=== PATIENT | male | born 1945 | race Caucasian/White ===

== ENCOUNTER → 2018-01-26 10:15 | Outpatient (CLI) | payer MEDICARE, BC, SELFPAY ==
--- NOTE | 2018-01-26 10:26 | RAD_ITS ---
STUDY: X-RAY CHEST REASON FOR EXAM: Male, 72 years old. Shortness of breath with cough and dyspnea. TECHNIQUE: Frontal and lateral views of the chest. COMPARISON: May 17, 2017 FINDINGS: There is low volume inspiration with bibasilar atelectasis. There are no focal consolidations. There is no demonstrated pleural abnormality. There is cardiomegaly unchanged. Normal mediastinum and dayan. Normal visualized pulmonary arteries. There is stable atherosclerotic calcification of the aortic arch with tortuosity. Normal visualized thoracic spine. Normal visualized ribs, clavicles, and shoulders. There is no demonstrated abnormality of the visualized soft tissue structures of the upper abdomen. RAD/Chest PA and Lateral IMPRESSION: Cardiomegaly with low volume inspiration and bibasilar atelectasis. No acute or active cardiopulmonary disease. Electronically Signed: Dylan Cotto MD at 17:50 EDT , Service support ,
== END ==
PROVIDERS: Family Provider Family Medicine Geriatric Medicine; PCP Family Medicine Geriatric Medicine; Visit Provider Family Medicine Geriatric Medicine
DX: R05 Cough (principal)
CPT/HCPCS: 71046

== ENCOUNTER → 2018-04-02 13:36 | Outpatient (CLI) | payer MEDICARE, BC, SELFPAY | PROVIDERS: Family Provider Family Medicine Geriatric Medicine; PCP Family Medicine Geriatric Medicine; Visit Provider Family Medicine Geriatric Medicine | DX: R69 Illness, unspecified (principal) | CPT/HCPCS: 87633 ==

== ENCOUNTER → 2018-04-30 09:21 | Outpatient (CLI) | payer MEDICARE, BC, SELFPAY ==
[2018-04-30 13:05] LABS: Absolute Lymphocyte Count 1.32 X10^3/ul (0.83-4.51); Absolute Neutrophil Count 2.3 X10^3/uL (2.0-7.7); Basophil# 0.03 X10^3/uL; Basophil% 0.7 % (0-1); Eosinophil# 0.57 X10^3/uL; Eosinophils% 12.4 % (0-5); Hematocrit 43.2 % (40-54); Lymphocyte # 1.32 X10^3/ul (4.0); Lymphocyte % 28.8 % (19-41); Mean Corp Hgb Conc 32.4 g/gl (32-36); Mean Corpuscular Hgb 31.5 pg (27.0-32.0); Mean Corpuscular Volume 97.1 fL (80-94); Monocyte# 0.36 X10^3/uL; Monocyte% 7.9 % (0-10); Neutrophil # 2.29 X10^3/uL (2.7-7.7); Platelet Count 221 K/mm3 (150-450); RBC Distribution Width CV 13.7 % (11.6-14.6); RBC Distribution Width SD 48.1 fl (35.1-43.9); Red Blood Count 4.45 M/mm3 (4.6-6.2); White Blood Count 4.6 K/mm3 (4.4-11.0)
[2018-04-30 13:06] LABS: POSITIVE COUNT NO; POSITIVE DIFFERENTIAL NO; POSITIVE MORPHOLOGY NO
[2018-04-30 13:20] LABS: AST(SGOT) 23 U/L (15-37); Alanine Aminotransfer ALT/SGPT 33 U/L (16-61); Albumin, Serum 3.6 g/dL (3.2-5.0); Alkaline Phosphatase 87 U/L (45-117); Anion Gap 4 (5-15); BUN 13 mg/dL (7-18); BUN/Creat Ratio 13.3 RATIO (10-20); Calcium,Total 8.8 mg/dL (8.5-10.1); Chloride 103 mmol/L (98-107); Creatinine, Serum 0.98 mg/dL (0.70-1.30); EST Glomerular Filtration Rate 80 mL/min (>60); Est Glom Filt Rate - Afr Amer 97 mL/min (>60); Globulin 3.6 g/dL (2.2-4.2); Glucose 92 mg/dL (74-106); Potassium 4.4 mmol/L (3.5-5.1); Protein, Total 7.2 g/dL (6.4-8.2); Sodium Level 137 mmol/L (136-145); Thyroid Stim Hormone (TSH) 1.22 uIU/mL (0.358-3.74)
[2018-04-30 13:27] LABS: Vitamin D,25 Hydroxy 22.9 ng/mL (29.95-100.01)
== END ==
PROVIDERS: Family Provider Family Medicine Geriatric Medicine; PCP Family Medicine Geriatric Medicine; Visit Provider Family Medicine Geriatric Medicine
DX: I10 Essential (primary) hypertension (principal); E55.9 Vitamin D deficiency, unspecified
CPT/HCPCS: 36415; 80053; 82306; 84443; 85025

== ENCOUNTER 2019-01-07 12:57 | Emergency (ER) | payer MEDICARE, BC, SELFPAY ==
[2018-08-27 10:13] VITALS: BMI 40.0
[2019-01-07 12:59] VITALS: BP 108/61; PULSE 89; RESP 18; TEMP 36.5; O2SAT 96; BMI 38.7
--- NOTE | 2019-01-07 13:30 | ED.VISSUMM ---
- ER Visit Summary Date of Service: 01/07/19 Chief Complaint: Shingles History of Present Illness: The patient is a 73 M who states that 2 weeks ago he developed shingles on the right side of his abdomen. At that time he was in [place] where he donnelly. He was seen a couple times there was started on prednisone and acyclovir. He also was taking tramadol as well as Tylenol with codeine to help with the pain but is still painful. He returned to [facility] on Monday and called his doctor's office today but they are out until the end of the week. His states that he has been putting various creams on it. Physical Examination: Afebrile vital signs are stable Gen: Well-nourished well-developed obesity Head: Normocephalic atraumatic Eyes: Perrl EOMI ENT: TMs clear no rhinorrhea moist mucous membranes Neck: Supple no lymphadenopathy no JVD nontender CVS: Regular rate rhythm no murmurs normal S1-S2 Respiratory: No distress clear to auscultation bilaterally chest nontender Abdomen: Soft nontender nondistended normal bowel sounds no masses Back: Nontender Extremity: Nontender no edema Skin: Right side of the abdomen demonstrates healing shingles. Most of them are scabbed over with a few vesicular lesions still present. There is however a large amount of erythema concerning for cellulitis. There are several areas where the skin has opened up and is draining a purulent-like material. Neuro: alert orientated ?3 CN II-XII intact normal strength sensation reflexes gait cerebellar Psych: Normal affect normal mood Emergency Department Course and Treatment: I am going to write the patient some Percocet for pain. I also wrote him Colace advised him to drink some apple juice to help prevent constipation. I am concerned about the areas of erythema I believe is cellulitis. I am going to write for Bactrim. I have asked that follow-up with his doctor. Impression: 1. Shingles 2. Cellulitis This note was generated with [employer]elli[employer] dictation software. It may contain incorrect words, spelling, and punctuation that were not noted in review of the chart prior to signing ED Disposition - Plan for ED Patient: Disposition: Home or Assisted Living Instructions: ED Cellulitis Facial, ED Shingles Prescriptions: Oxycodone HCl/Acetaminophen [Percocet 5/325] 1 tab PO Q6H PRN PRN 5 Days #20 tab PRN Reason: Pain Docusate Sodium [Colace] 100 mg PO DAILY #20 cap Smz/Tmp Ds [Bactrim Ds] 1 tab PO BID #14 tab Referrals: Price Herndon Chi, MD [Primary Care Provider] - As soon as possible
== END 2019-01-07 13:45 | disposition home or self-care (01) ==
PROVIDERS: Emergency Provider Emergency Medicine; Family Provider Family Medicine Geriatric Medicine; PCP Family Medicine Geriatric Medicine
DX: B02.9 Zoster without complications (principal); L03.311 Cellulitis of abdominal wall; E66.9 Obesity, unspecified
CPT/HCPCS: 99282

== ENCOUNTER → 2019-01-14 15:45 | Outpatient (CLI) | payer MEDICARE, BC, SELFPAY ==
[2019-01-07 12:59] VITALS: BMI 38.7
[2019-01-14 19:15] LABS: M R Staph aureus DNA By PCR Negative (Negative); Probe Check PASS; Staph aureus DNA By PCR NEGATIVE (Negative)
== END ==
PROVIDERS: Family Provider Family Medicine Geriatric Medicine; PCP Family Medicine Geriatric Medicine; Visit Provider Family Medicine Geriatric Medicine
DX: B02.9 Zoster without complications (principal)
CPT/HCPCS: 87070; 87077; 87186; 87205; 87640

== ENCOUNTER → 2019-01-21 15:10 | Outpatient (CLI) | payer MEDICARE, BC, SELFPAY ==
[2019-01-07 12:59] VITALS: BMI 38.7
[2019-01-21 16:07] LABS: Absolute Lymphocyte Count 0.95 X10^3/ul (0.83-4.51); Absolute Neutrophil Count 4.1 X10^3/uL (2.0-7.7); Eosinophil# 0.05 X10^3/uL; Eosinophils% 0.8 % (0-5); Hematocrit 40.4 % (40-54); Hemoglobin 12.9 g/dl (13.0-16.5); Lymphocyte # 0.95 X10^3/ul (4.0); Lymphocyte % 16.1 % (19-41); Mean Corp Hgb Conc 31.9 g/gl (32-36); Mean Corpuscular Hgb 31.4 pg (27.0-32.0); Mean Corpuscular Volume 98.3 fL (80-94); Mean Platelet Vol. 9.1 fl (6.2-12.0); Monocyte# 0.74 X10^3/uL; Monocyte% 12.6 % (0-10); Neutrophil # 4.14 X10^3/uL (2.7-7.7); Neutrophil % 70.3 % (47-70); Platelet Count 293 K/mm3 (150-450); RBC Distribution Width CV 14.8 % (11.6-14.6); RBC Distribution Width SD 53.3 fl (35.1-43.9); Red Blood Count 4.11 M/mm3 (4.6-6.2); White Blood Count 5.9 K/mm3 (4.4-11.0)
[2019-01-21 16:28] LABS: Vitamin D,25 Hydroxy 18.5 ng/mL (29.95-100.01)
[2019-01-21 16:34] LABS: POSITIVE COUNT NO; POSITIVE DIFFERENTIAL NO; POSITIVE MORPHOLOGY NO
[2019-01-21 16:38] LABS: AST(SGOT) 34 U/L (15-37); Alanine Aminotransfer ALT/SGPT 85 U/L (16-61); Albumin, Serum 3.6 g/dL (3.2-5.0); Alkaline Phosphatase 99 U/L (45-117); Anion Gap 5 (5-15); BUN 17 mg/dL (7-18); BUN/Creat Ratio 17.1 RATIO (10-20); Chloride 97 mmol/L (98-107); Creatinine, Serum 0.99 mg/dL (0.70-1.30); EST Glomerular Filtration Rate 78 mL/min (>60); Est Glom Filt Rate - Afr Amer 95 mL/min (>60); Globulin 3.5 g/dL (2.2-4.2); Glucose 72 mg/dL (74-106); Potassium 4.5 mmol/L (3.5-5.1); Protein, Total 7.1 g/dL (6.4-8.2); Sodium Level 135 mmol/L (136-145); Thyroid Stim Hormone (TSH) 1.05 uIU/mL (0.358-3.74)
== END ==
PROVIDERS: Family Provider Family Medicine Geriatric Medicine; PCP Family Medicine Geriatric Medicine; Visit Provider Family Medicine Geriatric Medicine
DX: E55.9 Vitamin D deficiency, unspecified (principal); I10 Essential (primary) hypertension
CPT/HCPCS: 36415; 80053; 82306; 84443; 85025

== ENCOUNTER → 2019-04-11 16:17 | Outpatient (CLI) | payer MEDICARE, BC, SELFPAY ==
[2019-03-19 07:37] VITALS: BMI 37.3
[2019-04-11 17:17] LABS: Absolute Neutrophil Count 3.4 X10^3/uL (2.0-7.7); Basophil# 0.02 X10^3/uL; Basophil% 0.4 % (0-1); Eosinophil# 0.14 X10^3/uL; Eosinophils% 2.6 % (0-5); Hematocrit 40.7 % (40-54); Hemoglobin 13.6 g/dL (13.0-16.5); Lymphocyte % 24.3 % (19-41); Mean Corp Hgb Conc 33.4 g/dL (32-36); Mean Corpuscular Hgb 33.5 pg (27.0-32.0); Mean Corpuscular Volume 100.2 fL (80-94); Mean Platelet Vol. 9.3 fl (6.2-12.0); Monocyte# 0.46 X10^3/uL; Monocyte% 8.6 % (0-10); NRBC Flagged by Analyzer 0 % (0-5); Neutrophil # 3.44 X10^3/uL (2.7-7.7); Neutrophil % 64.1 % (47-70); Platelet Count 224 K/mm3 (150-450); RBC Distribution Width CV 13.4 % (11.6-14.6); RBC Distribution Width SD 49.9 fl (35.1-43.9); Red Blood Count 4.06 M/mm3 (4.6-6.2); White Blood Count 5.4 K/mm3 (4.4-11.0)
[2019-04-11 17:31] LABS: ALB/GLOB Ratio 1.1 RATIO (0.9-2.4); AST(SGOT) 17 U/L (15-37); Alanine Aminotransfer ALT/SGPT 34 U/L (16-61); Albumin, Serum 3.6 g/dL (3.2-5.0); Alkaline Phosphatase 74 U/L (45-117); Amylase 33 U/L (25-115); Anion Gap 2 (5-15); BUN 13 mg/dL (7-18); BUN/Creat Ratio 13.7 RATIO (10-20); Calcium,Total 9.1 mg/dL (8.5-10.1); Chloride 105 mmol/L (98-107); Creatinine, Serum 0.95 mg/dL (0.70-1.30); EST Glomerular Filtration Rate 82 mL/min (>60); Est Glom Filt Rate - Afr Amer 99 mL/min (>60); Globulin 3.3 g/dL (2.2-4.2); Glucose 104 mg/dL (74-106); Lipase 62 U/L (73-393); Potassium 3.9 mmol/L (3.5-5.1); Protein, Total 6.9 g/dL (6.4-8.2); Sodium Level 135 mmol/L (136-145)
== END ==
PROVIDERS: Family Provider Family Medicine Geriatric Medicine; PCP Family Medicine Geriatric Medicine; Visit Provider Family Medicine Geriatric Medicine
DX: K86.81 Exocrine pancreatic insufficiency (principal)
CPT/HCPCS: 36415; 80053; 82150; 83690; 85025

== ENCOUNTER → 2019-04-12 10:33 | Outpatient (CLI) | payer MEDICARE, BC, SELFPAY ==
[2019-03-19 07:37] VITALS: BMI 37.3
--- NOTE | 2019-04-12 10:38 | CT_ITS ---
STUDY: CT ABDOMEN AND PELVIS WITHOUT CONTRAST REASON FOR EXAM: Male, 73 years old. Right lower quadrant pain. Hypertension. RADIATION DOSAGE (If Supplied By Facility): CTDIvol = ( 20.03 ) mGy, DLP = ( 1139.10 ) mGycm TECHNIQUE: Transaxial images were obtained from the dome of the diaphragm to the symphysis pubis without oral contrast, and without intravenous contrast. Sagittal and coronal images were reconstructed. Individualized dose optimization techniques were used for this CT. COMPARISON: None. FINDINGS: There is thickening of the right major fissure as well as the left major fissure. Findings suggestive of linear scarring in the lingular segment of the left upper lobe. Coronary artery calcification. Normal liver. The patient is status post cholecystectomy. There is a benign calcified granuloma of the spleen. Normal pancreas. Normal bilateral adrenal glands. Normal right kidney. Normal left kidney. Normal visualized stomach. Normal small intestine. There are multiple colonic diverticula consistent with diverticulosis. The appendix is visualized and appears normal. There is diffuse atherosclerotic calcification of the abdominal aorta, without a demonstrated aneurysm. Normal inferior vena cava. Normal retroperitoneum. Normal urinary bladder. Small bilateral inguinal hernias containing fat. There are degenerative changes of the visualized lumbar spine. CT/Abdomen/Pelvis without Cont IMPRESSION: No acute abnormality is seen. Electronically Signed: Bhupinder Hughes, at 13:08 EDT , Service support ,
== END ==
PROVIDERS: Family Provider Family Medicine Geriatric Medicine; PCP Family Medicine Geriatric Medicine; Referring Provider Family Medicine Geriatric Medicine; Visit Provider Family Medicine Geriatric Medicine
DX: R10.9 Unspecified abdominal pain (principal)
CPT/HCPCS: 74176

== ENCOUNTER → 2019-04-15 10:07 | Outpatient (CLI) | payer MEDICARE, BC, SELFPAY ==
[2019-03-19 07:37] VITALS: BMI 37.3
[2019-04-19 11:20] LABS: Fats, Neutral Normal (.); Fats, Total Increased (.)
== END ==
PROVIDERS: Family Provider Family Medicine Geriatric Medicine; PCP Family Medicine Geriatric Medicine; Referring Provider Family Medicine Geriatric Medicine; Visit Provider Family Medicine Geriatric Medicine
DX: K86.81 Exocrine pancreatic insufficiency (principal)
CPT/HCPCS: 82705

== ENCOUNTER → 2019-05-01 09:33 | Outpatient (CLI) | payer MEDICARE, BC, SELFPAY ==
[2019-03-19 07:37] VITALS: BMI 37.3
[2019-05-01 10:38] LABS: Absolute Neutrophil Count 3.2 X10^3/uL (2.0-7.7); Basophil# 0.04 X10^3/uL; Basophil% 0.7 % (0-1); Eosinophil# 0.22 X10^3/uL; Hematocrit 44.4 % (40-54); Hemoglobin 14.5 g/dL (13.0-16.5); Lymphocyte % 27.3 % (19-41); Mean Corp Hgb Conc 32.7 g/dL (32-36); Mean Corpuscular Hgb 32.9 pg (27.0-32.0); Mean Corpuscular Volume 100.7 fL (80-94); Mean Platelet Vol. 9.3 fl (6.2-12.0); Monocyte# 0.49 X10^3/uL; Monocyte% 8.9 % (0-10); NRBC Flagged by Analyzer 0 % (0-5); Neutrophil # 3.23 X10^3/uL (2.7-7.7); Neutrophil % 58.9 % (47-70); Platelet Count 227 K/mm3 (150-450); RBC Distribution Width CV 12.8 % (11.6-14.6); RBC Distribution Width SD 48.2 fl (35.1-43.9); Red Blood Count 4.41 M/mm3 (4.6-6.2); White Blood Count 5.5 K/mm3 (4.4-11.0)
[2019-05-01 11:21] LABS: Vitamin D,25 Hydroxy 24.1 ng/mL (29.95-100.01)
[2019-05-01 11:23] LABS: ALB/GLOB Ratio 1.1 RATIO (0.9-2.4); AST(SGOT) 18 U/L (15-37); Alanine Aminotransfer ALT/SGPT 36 U/L (16-61); Albumin, Serum 3.8 g/dL (3.2-5.0); Alkaline Phosphatase 77 U/L (45-117); Anion Gap 3 (5-15); BUN 12 mg/dL (7-18); BUN/Creat Ratio 10.7 RATIO (10-20); Calcium,Total 9.2 mg/dL (8.5-10.1); Chloride 104 mmol/L (98-107); Creatinine, Serum 1.12 mg/dL (0.70-1.30); EST Glomerular Filtration Rate 68 mL/min (>60); Est Glom Filt Rate - Afr Amer 82 mL/min (>60); Globulin 3.4 g/dL (2.2-4.2); Glucose 108 mg/dL (74-106); Protein, Total 7.2 g/dL (6.4-8.2); Sodium Level 138 mmol/L (136-145); Thyroid Stim Hormone (TSH) 1.24 uIU/mL (0.358-3.74)
== END ==
PROVIDERS: Family Provider Family Medicine Geriatric Medicine; PCP Family Medicine Geriatric Medicine; Visit Provider Family Medicine Geriatric Medicine
DX: I10 Essential (primary) hypertension (principal); E55.9 Vitamin D deficiency, unspecified
CPT/HCPCS: 36415; 80053; 82306; 84443; 85025

== ENCOUNTER → 2019-05-13 16:22 | Outpatient (CLI) | payer MEDICARE, BC, SELFPAY ==
[2019-03-19 07:37] VITALS: BMI 37.3
--- NOTE | 2019-05-13 16:24 | RAD_ITS ---
STUDY: X-RAY - LUMBAR SPINE REASON FOR EXAM: Male, 73 years old. Back pain. TECHNIQUE: 3 view(s) of the lumbar spine were obtained. COMPARISON: CT of the abdomen and pelvis dated April 12, 2019 FINDINGS: There is a stable grade 1 anterior spondylolisthesis of L4 on L5. There is no substantial scoliosis. There is a normal alignment of the vertebrae. There is multilevel endplate spondylosis of the lumbar vertebrae. There is multi-level degenerative disc disease with multi-level disc space narrowing. There is atherosclerotic calcification of the abdominal aorta without a demonstrated aneurysm. RAD/Lumbar Spine 2 or 3 Views IMPRESSION: Degenerative changes of the spine, as detailed above. Stable grade 1 anterior spondylolisthesis of L4 on L5. Atherosclerosis. Electronically Signed: Nissa Ramos MD at 17:46 EDT Tel , Service support ,
== END ==
PROVIDERS: Family Provider Family Medicine Geriatric Medicine; PCP Family Medicine Geriatric Medicine; Referring Provider Anesthesiology Pain Medicine; Visit Provider Anesthesiology Pain Medicine
DX: M54.9 Dorsalgia, unspecified (principal)
CPT/HCPCS: 72100

== ENCOUNTER → 2019-08-27 10:48 | Outpatient (CLI) | payer MEDICARE, BC, SELFPAY ==
[2019-03-19 07:37] VITALS: BMI 37.3
== END ==
PROVIDERS: Family Provider Family Medicine Geriatric Medicine; PCP Family Medicine Geriatric Medicine; Referring Provider Family Medicine Geriatric Medicine; Visit Provider Family Medicine Geriatric Medicine
DX: R68.83 Chills (without fever) (principal)
CPT/HCPCS: 87633

== ENCOUNTER → 2020-01-30 15:11 | Outpatient (CLI) | payer MEDICARE, BC, SELFPAY ==
[2019-03-19 07:37] VITALS: BMI 37.3
[2020-01-22 09:39] VITALS: BMI 35.7
[2020-01-30 16:16] LABS: Absolute Lymphocyte Count 1.41 X10^3/uL (0.83-4.51); Absolute Neutrophil Count 2.5 X10^3/uL (2.0-7.7); Basophil# 0.04 X10^3/uL; Basophil% 0.8 % (0-1); Eosinophil# 0.45 X10^3/uL; Eosinophils% 9.3 % (0-5); Hematocrit 43.9 % (40-54); Hemoglobin 13.9 g/dL (13.0-16.5); Lymphocyte # 1.41 X10^3/ul (4.0); Lymphocyte % 29.2 % (19-41); Mean Corp Hgb Conc 31.7 g/dL (32-36); Mean Corpuscular Hgb 31.4 pg (27.0-32.0); Mean Corpuscular Volume 99.1 fL (80-94); Mean Platelet Vol. 9.7 fl (6.2-12.0); Monocyte# 0.43 X10^3/uL; Monocyte% 8.9 % (0-10); NRBC Flagged by Analyzer 0 % (0-5); Neutrophil # 2.49 X10^3/uL (2.7-7.7); Neutrophil % 51.6 % (47-70); Platelet Count 236 K/mm3 (150-450); RBC Distribution Width CV 13.9 % (11.6-14.6); RBC Distribution Width SD 50.6 fl (35.1-43.9); Red Blood Count 4.43 M/mm3 (4.6-6.2); White Blood Count 4.8 K/mm3 (4.4-11.0)
[2020-01-30 16:45] LABS: Vitamin D,25 Hydroxy 35.7 ng/mL
[2020-01-30 16:52] LABS: ALB/GLOB Ratio 1.2 RATIO (0.9-2.4); AST(SGOT) 22 U/L (15-37); Alanine Aminotransfer ALT/SGPT 37 U/L (16-61); Alkaline Phosphatase 70 U/L (45-117); Anion Gap 4 (5-15); BUN 20 mg/dL (7-18); BUN/Creat Ratio 21.7 RATIO (10-20); Calcium,Total 9.3 mg/dL (8.5-10.1); Chloride 106 mmol/L (98-107); Creatinine, Serum 0.92 mg/dL (0.70-1.30); EST Glomerular Filtration Rate 85 mL/min (>60); Est Glom Filt Rate - Afr Amer 103 mL/min (>60); Globulin 3.2 g/dL (2.2-4.2); Glucose 105 mg/dL (74-106); Potassium 4.1 mmol/L (3.5-5.1); Protein, Total 7.2 g/dL (6.4-8.2); Sodium Level 140 mmol/L (136-145); Thyroid Stim Hormone (TSH) 0.83 uIU/mL (0.358-3.74)
== END ==
PROVIDERS: PCP Family Medicine Geriatric Medicine; Visit Provider Family Medicine Geriatric Medicine
DX: E55.9 Vitamin D deficiency, unspecified (principal); I10 Essential (primary) hypertension
CPT/HCPCS: 36415; 80053; 82306; 84443; 85025

== ENCOUNTER → 2020-05-05 13:35 | Outpatient (CLI) | payer MEDICARE, BC, SELFPAY ==
[2020-01-22 09:39] VITALS: BMI 35.7
[2020-05-05 15:53] LABS: Absolute Neutrophil Count 2.9 X10^3/uL (2.0-7.7); Basophil# 0.03 X10^3/uL; Basophil% 0.6 % (0-1); Eosinophil# 0.26 X10^3/uL; Eosinophils% 5.3 % (0-5); Hematocrit 41.8 % (40-54); Hemoglobin 13.5 g/dL (13.0-16.5); Lymphocyte % 26.7 % (19-41); Mean Corp Hgb Conc 32.3 g/dL (32-36); Mean Corpuscular Hgb 32.4 pg (27.0-32.0); Mean Corpuscular Volume 100.2 fL (80-94); Mean Platelet Vol. 9.9 fl (6.2-12.0); Monocyte# 0.35 X10^3/uL; Monocyte% 7.2 % (0-10); NRBC Flagged by Analyzer 0 % (0-5); Neutrophil # 2.92 X10^3/uL (2.7-7.7); Platelet Count 263 K/mm3 (150-450); RBC Distribution Width CV 13.2 % (11.6-14.6); RBC Distribution Width SD 49.3 fl (35.1-43.9); Red Blood Count 4.17 M/mm3 (4.6-6.2); White Blood Count 4.9 K/mm3 (4.4-11.0)
[2020-05-05 16:27] LABS: ALB/GLOB Ratio 1.1 RATIO (0.9-2.4); AST(SGOT) 17 U/L (15-37); Alanine Aminotransfer ALT/SGPT 30 U/L (16-61); Albumin, Serum 3.7 g/dL (3.2-5.0); Alkaline Phosphatase 96 U/L (45-117); Anion Gap 5 (5-15); BUN 16 mg/dL (7-18); BUN/Creat Ratio 18.7 RATIO (10-20); Calcium,Total 9.1 mg/dL (8.5-10.1); Chloride 107 mmol/L (98-107); Creatinine, Serum 0.86 mg/dL (0.70-1.30); EST Glomerular Filtration Rate 92 mL/min (>60); Est Glom Filt Rate - Afr Amer 112 mL/min (>60); Globulin 3.3 g/dL (2.2-4.2); Glucose 95 mg/dL (74-106); Potassium 4.4 mmol/L (3.5-5.1); Sodium Level 140 mmol/L (136-145); Thyroid Stim Hormone (TSH) 1.08 uIU/mL (0.358-3.74)
[2020-05-05 16:55] LABS: Vitamin D,25 Hydroxy 38.4 ng/mL
== END ==
PROVIDERS: PCP Family Medicine Geriatric Medicine; Visit Provider Family Medicine Geriatric Medicine
DX: E55.9 Vitamin D deficiency, unspecified (principal); I10 Essential (primary) hypertension
CPT/HCPCS: 36415; 80053; 82306; 84443; 85025

== ENCOUNTER → 2020-09-10 11:01 | Outpatient (CLI) | payer MEDICARE, BC, SELFPAY ==
[2020-09-03 10:13] VITALS: BMI 36.4
[2020-09-10 13:15] LABS: Absolute Lymphocyte Count 1.16 X10^3/uL (0.83-4.51); Absolute Neutrophil Count 2.8 X10^3/uL (2.0-7.7); Basophil# 0.08 X10^3/uL; Basophil% 1.7 % (0-1); Eosinophil# 0.25 X10^3/uL; Eosinophils% 5.3 % (0-5); Hemoglobin 12.5 g/dL (13.0-16.5); Lymphocyte # 1.16 X10^3/ul (4.0); Lymphocyte % 24.6 % (19-41); Mean Corp Hgb Conc 31.3 g/dL (32-36); Mean Corpuscular Hgb 31.3 pg (27.0-32.0); Mean Corpuscular Volume 100.3 fL (80-94); Mean Platelet Vol. 9.5 fl (6.2-12.0); Monocyte# 0.37 X10^3/uL; Monocyte% 7.9 % (0-10); NRBC Flagged by Analyzer 0 % (0-5); Neutrophil # 2.84 X10^3/uL (2.7-7.7); Neutrophil % 60.3 % (47-70); Platelet Count 258 K/mm3 (150-450); RBC Distribution Width CV 13.6 % (11.6-14.6); Red Blood Count 3.99 M/mm3 (4.6-6.2); White Blood Count 4.7 K/mm3 (4.4-11.0)
[2020-09-10 13:28] LABS: Vitamin D,25 Hydroxy 41.2 ng/mL
[2020-09-10 13:37] LABS: ALB/GLOB Ratio 1.1 RATIO (0.9-2.4); AST(SGOT) 21 U/L (15-37); Alanine Aminotransfer ALT/SGPT 41 U/L (16-61); Albumin, Serum 3.7 g/dL (3.2-5.0); Alkaline Phosphatase 87 U/L (45-117); Anion Gap 5 (5-15); BUN 19 mg/dL (7-18); BUN/Creat Ratio 21.3 RATIO (10-20); Chloride 104 mmol/L (98-107); Creatinine, Serum 0.89 mg/dL (0.70-1.30); EST Glomerular Filtration Rate 88 mL/min (>60); Est Glom Filt Rate - Afr Amer 106 mL/min (>60); Globulin 3.3 g/dL (2.2-4.2); Glucose 94 mg/dL (74-106); Potassium 4.2 mmol/L (3.5-5.1); Sodium Level 139 mmol/L (136-145); Thyroid Stim Hormone (TSH) 0.95 uIU/mL (0.358-3.74)
== END ==
PROVIDERS: PCP Family Medicine Geriatric Medicine; Visit Provider Family Medicine Geriatric Medicine
DX: E55.9 Vitamin D deficiency, unspecified (principal); I10 Essential (primary) hypertension
CPT/HCPCS: 36415; 80053; 82306; 84443; 85025

== ENCOUNTER → 2021-05-12 11:13 | Outpatient (CLI) | payer MEDICARE, BC, SELFPAY ==
[2021-05-12 12:54] LABS: Absolute Lymphocyte Count 1.15 X10^3/uL (0.83-4.51); Absolute Neutrophil Count 2.9 X10^3/uL (2.0-7.7); Basophil# 0.04 X10^3/uL; Basophil% 0.8 % (0-1); Eosinophil# 0.35 X10^3/uL; Eosinophils% 7.3 % (0-5); Hematocrit 40.9 % (40-54); Hemoglobin 13.2 g/dL (13.0-16.5); Lymphocyte # 1.15 X10^3/ul (0.83-4.51); Mean Corp Hgb Conc 32.3 g/dL (32-36); Mean Platelet Vol. 10.1 fl (6.2-12.0); Monocyte# 0.39 X10^3/uL; Monocyte% 8.1 % (0-10); NRBC Flagged by Analyzer 0 % (0-5); Neutrophil # 2.85 X10^3/uL (2.7-7.7); Neutrophil % 59.6 % (47-70); Platelet Count 199 K/mm3 (150-450); RBC Distribution Width CV 13.8 % (11.6-14.6); RBC Distribution Width SD 50.9 fl (35.1-43.9); Red Blood Count 4.13 M/mm3 (4.6-6.2); White Blood Count 4.8 K/mm3 (4.4-11.0)
[2021-05-12 13:28] LABS: Vitamin D,25 Hydroxy 52.3 ng/mL
[2021-05-12 13:31] LABS: ALB/GLOB Ratio 1.1 RATIO (0.9-2.4); AST(SGOT) 21 U/L (15-37); Alanine Aminotransfer ALT/SGPT 35 U/L (16-61); Albumin, Serum 3.5 g/dL (3.2-5.0); Alkaline Phosphatase 86 U/L (45-117); Anion Gap 5 (5-15); BUN 14 mg/dL (7-18); BUN/Creat Ratio 15.3 RATIO (10-20); Calcium,Total 8.9 mg/dL (8.5-10.1); Chloride 102 mmol/L (98-107); Creatinine, Serum 0.92 mg/dL (0.70-1.30); EST Glomerular Filtration Rate 85 mL/min (>60); Est Glom Filt Rate - Afr Amer 103 mL/min (>60); Globulin 3.3 g/dL (2.2-4.2); Glucose 107 mg/dL (74-106); Potassium 3.9 mmol/L (3.5-5.1); Protein, Total 6.8 g/dL (6.4-8.2); Sodium Level 137 mmol/L (136-145); Thyroid Stim Hormone (TSH) 1.35 uIU/mL (0.358-3.74)
== END ==
PROVIDERS: PCP Family Medicine Geriatric Medicine; Visit Provider Family Medicine Geriatric Medicine
DX: E55.9 Vitamin D deficiency, unspecified (principal); I10 Essential (primary) hypertension
CPT/HCPCS: 36415; 80053; 82306; 84443; 85025

== ENCOUNTER → 2022-01-12 | Outpatient (CLI) | payer MEDICARE, BC, SELFPAY ==
[2022-01-12 12:10] LABS: Absolute Lymphocyte Count 1.38 X10^3/uL (0.83-4.51); Absolute Neutrophil Count 3.8 X10^3/uL (2.0-7.7); Basophil# 0.04 X10^3/uL; Basophil% 0.7 % (0-1); Eosinophil# 0.24 X10^3/uL; Hematocrit 39.9 % (40-54); Hemoglobin 13.3 g/dL (13.0-16.5); Lymphocyte # 1.38 X10^3/ul (0.83-4.51); Lymphocyte % 23.1 % (19-41); Mean Corp Hgb Conc 33.3 g/dL (32-36); Mean Corpuscular Hgb 32.5 pg (27.0-32.0); Mean Corpuscular Volume 97.6 fL (80-94); Monocyte% 8.4 % (0-10); NRBC Flagged by Analyzer 0 % (0-5); Neutrophil # 3.81 X10^3/uL (2.7-7.7); Neutrophil % 63.6 % (47-70); Platelet Count 227 K/mm3 (150-450); RBC Distribution Width CV 13.3 % (11.6-14.6); RBC Distribution Width SD 47.8 fl (35.1-43.9); Red Blood Count 4.09 M/mm3 (4.6-6.2)
[2022-01-12 12:27] LABS: Vitamin D,25 Hydroxy 45.5 ng/mL
[2022-01-12 12:45] LABS: ALB/GLOB Ratio 1.1 RATIO (0.9-2.4); AST(SGOT) 21 U/L (15-37); Alanine Aminotransfer ALT/SGPT 38 U/L (16-61); Albumin, Serum 3.7 g/dL (3.2-5.0); Alkaline Phosphatase 75 U/L (45-117); Anion Gap 7 (5-15); BUN 20 mg/dL (7-18); Calcium,Total 9.1 mg/dL (8.5-10.1); Chloride 102 mmol/L (98-107); Creatinine, Serum 1.05 mg/dL (0.70-1.30); EST Glomerular Filtration Rate 73 mL/min (>60); Est Glom Filt Rate - Afr Amer 88 mL/min (>60); Globulin 3.5 g/dL (2.2-4.2); Glucose 129 mg/dL (74-106); Potassium 3.7 mmol/L (3.5-5.1); Protein, Total 7.2 g/dL (6.4-8.2); Sodium Level 138 mmol/L (136-145); Thyroid Stim Hormone (TSH) 1.22 uIU/mL (0.358-3.74)
== END | disposition home or self-care (01) ==
LOC: POLAB3 10:09
PROVIDERS: PCP Family Medicine Geriatric Medicine; Visit Provider Family Medicine Geriatric Medicine
DX: I10 Essential (primary) hypertension (principal); E55.9 Vitamin D deficiency, unspecified
CPT/HCPCS: 36415; 80053; 82306; 84443; 85025

== ENCOUNTER → 2022-05-25 | Outpatient (CLI) | payer MEDICARE, BC, SELFPAY ==
[2022-05-25 12:34] LABS: Absolute Lymphocyte Count 1.55 X10^3/uL (0.83-4.51); Absolute Neutrophil Count 2.4 X10^3/uL (2.0-7.7); Basophil# 0.02 X10^3/uL; Basophil% 0.4 % (0-1); Eosinophil# 0.22 X10^3/uL; Eosinophils% 4.6 % (0-5); Hematocrit 39.9 % (40-54); Hemoglobin 13.4 g/dL (13.0-16.5); Lymphocyte # 1.55 X10^3/ul (0.83-4.51); Lymphocyte % 32.5 % (19-41); Mean Corp Hgb Conc 33.6 g/dL (32-36); Mean Corpuscular Hgb 33.4 pg (27.0-32.0); Mean Corpuscular Volume 99.5 fL (80-94); Monocyte# 0.54 X10^3/uL; Monocyte% 11.3 % (0-10); NRBC Flagged by Analyzer 0 % (0-5); Neutrophil # 2.43 X10^3/uL (2.7-7.7); Platelet Count 206 K/mm3 (150-450); RBC Distribution Width CV 13.8 % (11.6-14.6); RBC Distribution Width SD 50.4 fl (35.1-43.9); Red Blood Count 4.01 M/mm3 (4.6-6.2); White Blood Count 4.8 K/mm3 (4.4-11.0)
[2022-05-25 12:48] LABS: Vitamin D,25 Hydroxy 32.5 ng/mL
[2022-05-25 13:03] LABS: AST(SGOT) 23 U/L (15-37); Alanine Aminotransfer ALT/SGPT 36 U/L (16-61); Albumin, Serum 3.4 g/dL (3.2-5.0); Alkaline Phosphatase 80 U/L (45-117); Anion Gap 4 (5-15); BUN 16 mg/dL (7-18); BUN/Creat Ratio 15.7 RATIO (10-20); Calcium,Total 8.8 mg/dL (8.5-10.1); Chloride 101 mmol/L (98-107); Creatinine, Serum 1.02 mg/dL (0.70-1.30); EST Glomerular Filtration Rate 75 mL/min (>60); Est Glom Filt Rate - Afr Amer 91 mL/min (>60); Globulin 3.4 g/dL (2.2-4.2); Glucose 96 mg/dL (74-106); Potassium 4.5 mmol/L (3.5-5.1); Protein, Total 6.8 g/dL (6.4-8.2); Sodium Level 138 mmol/L (136-145); Thyroid Stim Hormone (TSH) 1.44 uIU/mL (0.358-3.74)
== END | disposition home or self-care (01) ==
LOC: POLAB3 09:15
PROVIDERS: PCP Family Medicine Geriatric Medicine; Visit Provider Family Medicine Geriatric Medicine
DX: I10 Essential (primary) hypertension (principal); E55.9 Vitamin D deficiency, unspecified
CPT/HCPCS: 36415; 80053; 82306; 84443; 85025

== ENCOUNTER → 2022-09-05 | Outpatient (CLI) | payer MEDICARE, BC, SELFPAY | END | disposition home or self-care (01) | LOC: PSN 08:38 | PROVIDERS: PCP Family Medicine Geriatric Medicine; Visit Provider Family Medicine Geriatric Medicine | DX: R68.83 Chills (without fever) (principal) | CPT/HCPCS: 87635; 87804; 87807; C9803; U0003; U0005 ==

== ENCOUNTER → 2023-01-24 | Outpatient (CLI) | payer MEDICARE, BC, SELFPAY ==
--- NOTE | 2023-01-24 12:25 | RAD_ITS ---
STUDY: X-RAY - RIGHT KNEE REASON FOR EXAM: Male, 77 years old. Osteoarthritis. TECHNIQUE: 3 view(s) of the knee. COMPARISON: None. FINDINGS: There is demineralization of the visualized distal femur. There is demineralization of the tibia and fibula. There is arthrosis of the proximal tibiofibular articulation. There is no acute fracture, dislocation or destructive osseous pathology. There is mild degenerative arthrosis of the medial femorotibial compartment. There is severe degenerative arthrosis of the lateral femorotibial compartment with severe joint space narrowing. There is severe degenerative arthrosis of the patellofemoral articulation. There is a soft tissue prominence in the suprapatellar region suggesting a small volume joint effusion. There are atherosclerotic calcifications. RAD/Knee 3 Views IMPRESSION: 1. Degenerative changes of the knee without fracture or dislocation. 2. Question small suprapatellar joint effusion. Electronically Signed: Gerald Canela DO at 18:25 EDT Reading Location ID and State: [id number] Tel [phone], Service support ,
--- NOTE | 2023-01-24 12:35 | RAD_ITS ---
STUDY: X-RAY - LUMBAR SPINE REASON FOR EXAM: Male, 77 years old. Back pain. TECHNIQUE: 4 view(s) of the lumbar spine were obtained. COMPARISON: Lumbar spine, May 13, 2019. FINDINGS: Normal lumbar lordosis. There is a very minimal dextroscoliosis with the convexity at L2. Minimal anterolisthesis of L4 on L5. Otherwise normal alignment of the vertebrae. There is diffuse demineralization with multi-level endplate spondylosis. There is multi-level degenerative disc disease with multi-level disc space narrowing. There is no evidence of acute fracture or loss of vertebral axial height. There is mild atherosclerotic calcification of the abdominal aorta without a demonstrated aneurysm. RAD/L/S Spine Min 4 Views IMPRESSION: Stable degenerative changes on the lumbar spine. Electronically Signed: Gerald Canela DO at 18:26 EDT ,
[2023-01-24 13:20] LABS: Vitamin B12 1091 pg/mL (211-911); Vitamin D,25 Hydroxy 52.7 ng/mL
[2023-01-24 13:30] LABS: ALB/GLOB Ratio 1.1 RATIO (0.9-2.4); AST(SGOT) 26 U/L (15-37); Alanine Aminotransfer ALT/SGPT 40 U/L (16-61); Albumin, Serum 3.5 g/dL (3.2-5.0); Alkaline Phosphatase 82 U/L (45-117); Anion Gap 5 (5-15); BUN 15 mg/dL (7-18); BUN/Creat Ratio 15.3 RATIO (10-20); Calcium,Total 9.1 mg/dL (8.5-10.1); Chloride 103 mmol/L (98-107); Creatinine, Serum 0.98 mg/dL (0.70-1.30); EST Glomerular Filtration Rate 79 mL/min (>60); Est Glom Filt Rate - Afr Amer 95 mL/min (>60); Globulin 3.2 g/dL (2.2-4.2); Glucose 108 mg/dL (74-106); Potassium 3.9 mmol/L (3.5-5.1); Protein, Total 6.7 g/dL (6.4-8.2); Sodium Level 139 mmol/L (136-145); Thyroid Stim Hormone (TSH) 1.05 uIU/mL (0.358-3.74)
[2023-01-24 13:37] LABS: Absolute Lymphocyte Count 1.13 X10^3/uL (0.83-4.51); Absolute Neutrophil Count 2.6 X10^3/uL (2.0-7.7); Basophil# 0.04 X10^3/uL; Basophil% 0.9 % (0-1); Eosinophil# 0.33 X10^3/uL; Eosinophils% 7.3 % (0-5); Hematocrit 41.7 % (40-54); Hemoglobin 13.4 g/dL (13.0-16.5); Lymphocyte # 1.13 X10^3/ul (0.83-4.51); Lymphocyte % 24.9 % (19-41); Mean Corp Hgb Conc 32.1 g/dL (32-36); Mean Corpuscular Hgb 32.2 pg (27.0-32.0); Mean Corpuscular Volume 100.2 fL (80-94); Monocyte% 8.8 % (0-10); NRBC Flagged by Analyzer 0 % (0-5); Neutrophil # 2.64 X10^3/uL (2.7-7.7); Neutrophil % 58.1 % (47-70); Platelet Count 231 K/mm3 (150-450); RBC Distribution Width SD 52.3 fl (35.1-43.9); Red Blood Count 4.16 M/mm3 (4.6-6.2); White Blood Count 4.5 K/mm3 (4.4-11.0)
== END | disposition home or self-care (01) ==
PROVIDERS: PCP Family Medicine Geriatric Medicine; Visit Provider Family Medicine Geriatric Medicine
DX: I10 Essential (primary) hypertension (principal); E55.9 Vitamin D deficiency, unspecified; E53.8 Deficiency of other specified B group vitamins; M17.11 Unilateral primary osteoarthritis, right knee; R53.83 Other fatigue
CPT/HCPCS: 36415; 72110; 73562; 80053; 82306; 82607; 84443; 85025

== ENCOUNTER 2023-02-20 15:02 | Emergency (ER) | payer MEDICARE, BC, SELFPAY ==
[2023-02-20 15:03] VITALS: BP 102/65; PULSE 78; RESP 16; TEMP 36.3; O2SAT 95
[2023-02-20 15:20] VITALS: BP 105/58; PULSE 77; RESP 16; O2SAT 94; BMI 36.8
--- NOTE | 2023-02-20 15:25 | CT_ITS ---
STUDY: CT BRAIN WITHOUT CONTRAST REASON FOR EXAM: Male, 77 years old. Syncopal episode at home today while sitting in a chair. Continues to feel lightheaded denies headache. Question stroke. RADIATION DOSAGE (If Supplied By Facility): CTDIvol = ( 44.99 ) mGy, DLP = ( 846.73 ) mGycm TECHNIQUE: Transaxial CT imaging of the brain was performed without administration of intravenous contrast material. Individualized dose optimization techniques were used for this CT. COMPARISON: No relevant priors. FINDINGS: Normal soft tissue structures. Normal calvarium. There is moderate cerebral atrophy with widening of the extra-axial spaces and ventricular dilatation. There are areas of decreased attenuation within the white matter tracts of the supratentorial brain, consistent with microvascular disease changes. Normal basal ganglia and thalami. Normal brainstem. Normal cerebellum. There is diffuse mucoperiosteal reaction in the paranasal sinuses with near complete occlusion of the right ethmoid air cells. CT/Brain/Head without Contrast IMPRESSION: 1. Chronic involutional changes without evidence of acute intracranial or calvarial abnormality. 2. Sinusitis. AIDOC was utilized to assist in identifying pertinent positive findings in this case. Electronically Signed: Gerald Canela DO at 16:05 EDT Reading Location ID and State: [address] [place] [address] Tel [phone], Service support ,
[2023-02-20 15:35] VITALS: BP 93/51; BP 97/56; BP 98/54; PULSE 77; PULSE 81; PULSE 97
[2023-02-20 15:40] LABS: Absolute Neutrophil Count 3.6 X10^3/uL (2.0-7.7); Basophil# 0.02 X10^3/uL; Basophil% 0.4 % (0-1); Eosinophil# 0.11 X10^3/uL; Eosinophils% 2.3 % (0-5); Hematocrit 38.3 % (40-54); Hemoglobin 12.6 g/dL (13.0-16.5); Lymphocyte % 16.4 % (19-41); Mean Corp Hgb Conc 32.9 g/dL (32-36); Mean Corpuscular Volume 100.3 fL (80-94); Mean Platelet Vol. 8.7 fl (6.2-12.0); Monocyte# 0.32 X10^3/uL; Monocyte% 6.6 % (0-10); NRBC Flagged by Analyzer 0 % (0-5); Neutrophil % 73.9 % (47-70); Platelet Count 180 K/mm3 (150-450); RBC Distribution Width CV 13.5 % (11.6-14.6); RBC Distribution Width SD 50.2 fl (35.1-43.9); Red Blood Count 3.82 M/mm3 (4.6-6.2); White Blood Count 4.9 K/mm3 (4.4-11.0)
--- NOTE | 2023-02-20 15:45 | RAD_ITS ---
STUDY: X-RAY CHEST REASON FOR EXAM: Male, 77 years old. Syncopal episode today. Lightheadedness. Hypotension. TECHNIQUE: Single AP portable view of the chest. COMPARISON: January 26, 2018. FINDINGS: A limited inspiratory effort. There is no new infiltrate or mass. There is no demonstrated pleural abnormality. Normal size heart. Normal mediastinum and dayan. Normal visualized pulmonary arteries. There is atherosclerotic calcification of the aortic arch with tortuosity. There are diffuse degenerative changes of the visualized thoracic spine. There is degenerative osteoarthritis of the bilateral shoulders. There is no demonstrated abnormality of the visualized soft tissue structures of the upper abdomen. RAD/Chest 1 View (Portable) IMPRESSION: Degenerative changes, as described above. No demonstrated acute cardiopulmonary process. No major interval change. Electronically Signed: Gerald Canela DO at 16:55 EDT ,
--- NOTE | 2023-02-20 15:47 | EX.ED.DYSGE1 ---
HPI History of Present Illness Chief Complaint: Dizziness Onset/Context/Timing Onset: Today Context: Sudden Onset Timing: Lasts (Approximately 5 minutes) Quality: Lightheaded, sweaty Location: Generalized Worsened by: Nothing Relieved by: Nothing Narrative Narrative: Patient presents with a syncopal episode that occurred today. Patient was sitting and talking with her on the phone when he passed out. states that he lost consciousness he was brought here into a sweat. Patient states he feels weak all over. states that patient was out for approximately 5 minutes. Patient denies any chest pain or palpitations. Patient denies any shortness of breath or cough. The patient states he has been feeling lightheaded since this happened. [facility] Medical History (Updated 02/20/23 @ 19:[address] Itz Greenberg, ) Acute respiratory failure with hypoxia Asthma Atherosclerotic heart disease of [place] coronary artery without angina pectoris Essential hypertension Hiatal hernia Long-term use of high-risk medication Nonsustained ventricular tachycardia Obesity (BMI 30-39.9) PAC (premature atrial contraction) Pure hypercholesterolemia PVC (premature ventricular contraction) Home Medications coenzyme Q10 100 mg capsule 100 mg PO DAILY 05/17/17 [History Last Taken Unknown] nitroglycerin 0.4 mg sublingual tablet 0.4 mg sublingual Q5M PRN cp 12/04/17 [History Last Taken Unknown] chondroitin sulfate A sodium 400 mg capsule 1,200 mg PO QDAY 01/18/18 [History Last Taken Unknown] glucosamine HCl 1,500 mg tablet 1,500 mg PO QDAY 01/18/18 [History Last Taken Unknown] isosorbide mononitrate 60 mg tablet,extended release 24 hr 60 mg PO DAILY #90 tabs 01/18/18 [Rx Last Taken Unknown] furosemide 40 mg tablet 40 mg PO DAILY #90 tabs 06/30/21 [Rx Last Taken Unknown] potassium chloride 20 mEq tablet,extended release(part/cryst) 20 meq PO DAILY #90 tabs 06/30/21 [Rx Last Taken Unknown] calcium carbonate 500 mg-vitamin D3 10 mcg (400 unit) tablet 1 tab PO DAILY 01/19/22 [History Last Taken Unknown] cetirizine 10 mg tablet (Zyrtec) 10 mg PO DAILY PRN 01/19/22 [History Last Taken Unknown] diltiazem HCl 120 mg capsule,extended release 24 hr 120 mg PO DAILY #90 caps 06/08/22 [Rx Last Taken Unknown] doxazosin 4 mg tablet 4 mg PO QHS #90 tabs 09/05/22 [Rx Last Taken Unknown] multivitamin 1 tab PO DAILY 09/05/22 [History Last Taken Unknown] pravastatin 40 mg tablet 40 mg PO QHS #90 tabs 09/05/22 [Rx Last Taken Unknown] Allergy/AdvReac Type Severity Reaction Status Date / Time Beta-Blockers Allergy Severe Hives Verified 02/20/23 15:03 (Beta-Adrenergic Bloc ceftriaxone [From Rocephin] Allergy Severe Anaphylaxis Verified 02/20/23 15:03 hydralazine Allergy Severe Swelling- Verified 02/20/23 15:03 eyes, feet Iodinated Contrast Media Allergy Hives Verified 02/20/23 15:03 [CONTRASTS] iodine Allergy Hives Verified 02/20/23 15:03 NAHUM Inhibitors AdvReac Severe Swelling Verified 02/20/23 15:03 amlodipine AdvReac Severe Edema,legs Verified 02/20/23 15:03 clonidine AdvReac Severe RAsh Verified 02/20/23 15:03 valsartan [From Diovan] AdvReac Severe RAsh Verified 02/20/23 15:03 Family History Mother CAD (coronary artery disease) Myocardial infarction Father CAD (coronary artery disease) Myocardial infarction Brother CAD (coronary artery disease) Hx of CABG Brother CAD (coronary artery disease) Surgical History History of carpal tunnel surgery History of cataract extraction History of cholecystectomy Social History Smoking Status: Never smoker alcohol intake: current details: occasional substance use type: does not use caffeine: Yes Type: coffee Number of servings: 3 ROS ROS ED Constitutional Constitutional ED: Reports sweats; Denies chills or fever(s) Eyes Eyes: Denies blurry vision or change in vision ENT ENT ED: Denies rhinorrhea or sore throat Cardiovascular Cardiovascular: Denies chest pain or palpitations Respiratory/Chest Respiratory/Chest: Denies cough or dyspnea Gastrointestinal Gastrointestinal: Denies nausea or vomiting Genitourinary Genitourinary ED: Denies dysuria or hematuria Musculoskeletal Musculoskeletal: Denies back pain or neck pain Integumentary Denies abscess or rash Neurologic Neurologic: Reports weakness; Denies headache(s) Allergic/Immunologic Allergic/Immunologic ED: Denies mouth swelling or urticaria EXAM Physical Exam Const Vital Signs: 02/20/23 15:03 02/20/23 15:20 02/20/23 15:23 Temperature 97.4 F L Temperature Source Temporal Pulse Rate 78 77 Pulse Rate [Lying] Pulse Rate [Sitting (for 1 minute prior to obtaining)] Pulse Rate [Standing (for 1 minute prior to obtaining)] Respiratory Rate 16 16 Respiratory Pattern Normal Blood Pressure 102/65 105/58 L Blood Pressure [Lying] Blood Pressure [Sitting (for 1 minute prior to obtaining)] Blood Pressure [Standing (for 1 minute prior to obtaining)] Blood Pressure Mean 77 73 Blood Pressure Mean [Lying] Blood Pressure Mean [Sitting (for 1 minute prior to obtaining)] Blood Pressure Mean [Standing (for 1 minute prior to obtaining)] Pulse Ox 95 94 Oxygen Delivery Method Room Air Room Air 02/20/23 15:35 02/20/23 17:02 Temperature Temperature Source Pulse Rate 69 Pulse Rate [Lying] 77 Pulse Rate [Sitting (for 1 minute prior to obtaining)] 81 Pulse Rate [Standing (for 1 minute prior to obtaining)] 97 Respiratory Rate 14 Respiratory Pattern Blood Pressure 100/56 L Blood Pressure [Lying] 98/54 L Blood Pressure [Sitting (for 1 minute prior to obtaining)] 93/51 L Blood Pressure [Standing (for 1 minute prior to obtaining)] 97/56 L Blood Pressure Mean 70 Blood Pressure Mean [Lying] 68 Blood Pressure Mean [Sitting (for 1 minute prior to obtaining)] 65 Blood Pressure Mean [Standing (for 1 minute prior to obtaining)] 69 Pulse Ox 96 Oxygen Delivery Method Room Air Positive well nourished and well developed General Appearance ED: well developed and NAD HEENT Reports moist mucous membranes Neck supple and no JVD Resp normal respiratory effort and clear to auscultation bilaterally Cardio regular rate, regular rhythm and no murmurs GI normal to inspection, nondistended, normoactive bowel sounds and non-tender Palpation: soft Extremity normal to inspection General Extremety ED: Negative for edema or tenderness General Extremity: Negative for edema Neuro oriented x3, CN's II-XII intact bilaterally and no sensory deficits noted Sensorium / Orientation: alert Motor Exam: strength 5/5 throughout Psych mental status grossly normal Skin no rashes or lesions noted MDM MDM MDM Narrative Medical decision making narrative: Differential diagnosis includes syncope, stroke, cardiac dysrhythmia, cardiac ischemia, pulmonary embolism, electrolyte abnormality, infection and pneumonia. EKG will be obtained to assess for cardiac dysrhythmia and cardiac ischemia. Chest x-ray will be obtained to assess for pneumonia. CT scan of the brain will be obtained to assess for stroke and intracranial bleeding. CBC will be obtained to assess for anemia and leukocytosis. Basic metabolic profile will be obtained to assess for electrolyte abnormality and renal function. Urinalysis will be obtained to assess for urinary tract infection and hematuria. D-dimer will be obtained to assess for pulmonary embolism. High-sensitivity troponin will be obtained to assess for cardiac ischemia. 2-hour repeat high-sensitivity troponin will be obtained to assess for ongoing cardiac ischemia. PT with INR and PTT will be obtained to assess for coagulopathy. Lab Data Attestation: I reviewed the patient's lab results. Lab results narrative: CBC was reviewed. There is a mild anemia with a hemoglobin of 12.6 and hematocrit 38.3. Basic metabolic profile was reviewed and was within normal limits. High-sensitivity troponin was reviewed and was within normal limits. PT was INR and PTT were reviewed and were normal. D-dimer was reviewed and was 0.62 which is normal for his age. 2-hour repeat high-sensitivity troponin was also normal at 7. Urinalysis was reviewed. There is no evidence of urinary tract infection or hematuria. Labs: Laboratory Results - last 24 hr 02/20/23 02/20/23 02/20/23 15:30 15:30 15:30 WBC 4.9 RBC 3.82 L Hgb 12.6 L Hct 38.3 L MCV 100.3 H MCH 33.0 H MCHC 32.9 RDW Std Deviation 50.2 H RDW Coeff of Dc 13.5 Plt Count 180 MPV 8.7 Immature Gran % (Auto) 0.400 Neut % (Auto) 73.9 H Lymph % (Auto) 16.4 L [place] % (Auto) 6.6 Eos % (Auto) 2.3 Baso % (Auto) 0.4 Absolute Neuts (auto) 3.6 Absolute Lymphs (auto) 0.80 L Nucleated RBC % 0 PT 13.5 INR 1.0 APTT 26.9 D-Dimer Quant (PE/DVT) 0.62 H* Sodium 143 Potassium 4.7 Chloride 106 Carbon Dioxide 30.0 Anion Gap 7 BUN 14 Creatinine 1.19 Estim Creat Clear Calc 51.97 Est GFR (MDRD) Af Amer 76 Est GFR (MDRD) Non-Af 63 BUN/Creatinine Ratio 11.8 Glucose 155 H Calcium 9.3 Troponin I High Sens 7 Urine Color Urine Clarity Urine pH Ur Specific [place] Urine Protein Urine Glucose (UA) Urine Ketones Urine Occult Blood Urine Nitrite Urine Bilirubin Urine Urobilinogen Ur Leukocyte Esterase Urine RBC Urine WBC Ur Squamous Epith Cells Urine Bacteria Hyaline Casts Urine Mucus 02/20/23 02/20/23 16:35 17:47 WBC RBC Hgb Hct MCV MCH MCHC RDW Std Deviation RDW Coeff of Dc Plt Count MPV Immature Gran % (Auto) Neut % (Auto) Lymph % (Auto) [place] % (Auto) Eos % (Auto) Baso % (Auto) Absolute Neuts (auto) Absolute Lymphs (auto) Nucleated RBC % PT INR APTT D-Dimer Quant (PE/DVT) Sodium Potassium Chloride Carbon Dioxide Anion Gap BUN Creatinine Estim Creat Clear Calc Est GFR (MDRD) Af Amer Est GFR (MDRD) Non-Af BUN/Creatinine Ratio Glucose Calcium Troponin I High Sens 7 Urine Color [place]elle Urine Clarity Clear Urine pH 5.0 Ur Specific [place] 1.030 Urine Protein 30 H Urine Glucose (UA) Normal Urine Ketones 15 H Urine Occult Blood 10 H Urine Nitrite Positive H Urine Bilirubin 1 H Urine Urobilinogen 4 H Ur Leukocyte Esterase 25 H Urine RBC 0 SEEN Urine WBC 0-5 SEEN Ur Squamous Epith Cells 0 SEEN Urine Bacteria 0 SEEN Hyaline Casts 10-25 SEEN Urine Mucus 0 SEEN Radiography Diagnostic Testing: Clinical Impression(s) from Imaging Studies Brain CT 02/20/23 15:25 IMPRESSION: 1. Chronic involutional changes without evidence of acute intracranial or calvarial abnormality. 2. Sinusitis. AIDOC was utilized to assist in identifying pertinent positive findings in this case. Electronically Signed: Gerald Canela DO at 16:05 EDT Reading Location ID and State: [facility] / [place] Tel [phone], Service support , Chest X-Ray 02/20/23 15:45 IMPRESSION: Degenerative changes, as described above. No demonstrated acute cardiopulmonary process. No major interval change. Electronically Signed: Gerald Canela DO at 16:55 EDT Reading Location ID and State: [address] [place] [address] Tel [phone], Service support , CT scan of the brain was obtained. There is no acute intracranial abnormality. There are chronic involutional changes noted. This was interpreted by the radiologist and was also independently reviewed by myself. Portable 1 view chest x-ray was obtained. On my independent interpretation, lung woody are clear. There is normal cardiac silhouette. Bony thorax is normal. There is no acute process noted. Radiologist also interpreted the x-ray and agrees. EKG Initial EKG: Attestation: I personally reviewed and interpreted this EKG as follows: Interpretation: Sinus Rhythm (With occasional ectopics with a rate of 75) and Non-Specific ST Changes Comments: EKG was obtained. On my independent interpretation, it showed a normal sinus rhythm with a rate of 75 with occasional multifocal PVCs. ID interval, QRS interval, and QTc intervals were all normal. There is left axis deviation at -42. There are nonspecific ST-T wave changes. Prior EKG tracings: available for review Prior: Unchanged (05/19/2017) Treatment and Re-Evaluation :: Orthostatic vital signs were obtained and were within normal limits. Patient and spouse were advised of his findings. Patient is low risk for syncope according to the [place] syncope criteria and [place] syncope rules. Patient was instructed to follow-up with his primary care physician in 5 to 7 days for further evaluation. Patient understood and was agreeable with the plan. All questions were answered. Discharge Plan Triage Chief Complaint: Dizziness ED Provider: Itz Greenberg Dx/Rx/DC Orders Clinical Impression: Syncope and collapse, PVC (premature ventricular contraction), Essential hypertension Instructions: ED Fainting, Uncertain Cause Prescriptions: No Action nitroglycerin 0.4 mg tablet, sublingual 0.4 mg SUBLINGUAL Q5M PRN (Reason: cp) isosorbide mononitrate 60 mg tablet extended release 24 hr 60 mg PO DAILY Qty: 90 3RF chondroitin sulfate A sodium 400 mg capsule 400 mg capsule 1,200 mg PO QDAY glucosamine HCl 1,500 mg tablet 1,500 mg PO QDAY cetirizine [Zyrtec] 10 mg tablet 10 mg PO DAILY PRN calcium carbonate-vitamin D3 500 mg-10 mcg (400 unit) tablet 1 tab PO DAILY coenzyme Q10 100 MG capsule 100 mg PO DAILY multivitamin Tablet 1 tab PO DAILY potassium chloride 20 mEq tablet,ER particles/crystals 20 meq PO DAILY Qty: 90 4RF furosemide 40 mg tablet 40 mg PO DAILY Qty: 90 4RF diltiazem HCl 120 mg capsule,extended release 24hr 120 mg PO DAILY Qty: 90 3RF doxazosin 4 mg tablet 4 mg PO QHS Qty: 90 3RF pravastatin 40 mg tablet 40 mg PO QHS Qty: 90 3RF Primary Care Provider: Price Herndon Chi Referrals: Price Herndon Chi, MD [Primary Care Provider] - 5-7 Days Disposition Disposition: Home, Self Care
[2023-02-20 15:54] LABS: Prothrombin Time (Protime)PT. 13.5 SECONDS (11.7-14.9)
[2023-02-20 15:55] LABS: Partial Thromboplast Time 26.9 Seconds (24.1-36.2)
[2023-02-20 15:59] LABS: Anion Gap 7 (5-15); BUN 14 mg/dL (7-18); BUN/Creat Ratio 11.8 RATIO (10-20); Calcium,Total 9.3 mg/dL (8.5-10.1); Chloride 106 mmol/L (98-107); Creatinine, Serum 1.19 mg/dL (0.70-1.30); EST Glomerular Filtration Rate 63 mL/min (>60); Est Glom Filt Rate - Afr Amer 76 mL/min (>60); Estimated Creatinine Clearance 51.97 ml/min; Glucose 155 mg/dL (74-106); Potassium 4.7 mmol/L (3.5-5.1); Sodium Level 143 mmol/L (136-145); Troponin-I HS (w/2H Reflex) 7 pg/mL (3.0-78.0)
[2023-02-20 16:25] LABS: D-Dimer Quantitative (DVT/PE) 0.62 FEU/ug/m (0.27-0.49)
[2023-02-20 16:43] LABS: Bacteria 0 SEEN /hpf (None Seen); Mucous, Urine 0 SEEN /hpf (<or=2+); Red Blood Cells-Urine 0 SEEN /hpf (0-5); Squamous Epithelial Cells - UA 0 SEEN /hpf (0-5)
[2023-02-20 16:47] LABS: Color, Urine Amber (Yellow); Glucose, Dipstick Normal (Normal); Ketone-Dipstick 15 mg/dl (Negative); Leukocyte Esterase-Dipstick 25 /ul (Negative); Nitrite-Dipstick Positive (Negative); Occult Blood-Urine 10 /ul (Negative); Protein-Dipstick 30 mg/dl (Negative); Urine Clarity Clear (Clear); Urine Urobilinogen 4 mg/dl (Normal)
[2023-02-20 17:02] VITALS: BP 100/56; PULSE 69; RESP 14; O2SAT 96
[2023-02-20 17:03] LABS: Urine Bilirubin Dipstick 1 mg/dL (Negative)
[2023-02-20 17:06] LABS: Hyaline Cast 10-25 SEEN /lpf (0-5); White Blood Cells 0-5 SEEN /hpf (0-5)
[2023-02-20 17:36] LABS: Reflex Troponin-HS? (from REC) Y
[2023-02-20 18:14] LABS: Troponin-I HS 7 pg/mL (3.0-78.0)
[2023-02-20 19:54] VITALS: BP 116/57; PULSE 72; RESP 15; O2SAT 96
== END 2023-02-20 19:55 | disposition home or self-care (01) ==
PROVIDERS: Emergency Provider Emergency Medicine; PCP Family Medicine Geriatric Medicine; Visit Provider Emergency Medicine
DX: R55 Syncope and collapse (principal); I49.3 Ventricular premature depolarization; E78.00 Pure hypercholesterolemia, unspecified; I25.10 Atherosclerotic heart disease of native coronary artery without angina pectoris; I10 Essential (primary) hypertension; Z90.49 Acquired absence of other specified parts of digestive tract
CPT/HCPCS: 70450; 71045; 80048; 81001; 84484; 85025; 85379; 85610; 85730; 93005; 99285; A4216

== ENCOUNTER → 2023-03-20 | Outpatient (CLI) | payer MEDICARE, BC, SELFPAY ==
--- NOTE | 2023-03-20 07:38 | ECHOCS_ITS ---
Reason For Study: syncope Procedure This was a 2D Doppler, Color Flow transthoracic echocardiogram. The study was technically limited. The study was technically difficult. Due to body habitus. Contrast injection was performed. Exam performed in department. Left Ventricle Normal LV size. Left ventricular systolic function is normal. The estimated ejection fraction is 55 %. Stage 1 diastolic dysfunction. Right Ventricle Normal RV size. Normal systolic function. Atria The left atrium is mildly enlarged. Mitral Valve Normal mitral valve. Tricuspid Valve Normal tricuspid valve. Trivial tricuspid valve insufficiency. Aortic Valve The aortic valve is not well visualized. Pulmonic Valve The pulmonic valve is not well visualized. Great Vessels Normal aortic root. The pulmonary artery is normal size. Normal inferior vena cava. Pericardium/Pleural No pericardial effusion. Medication Diluted definity 3.0ml given slow IV push to enhance endocardial definition. MMode/2D Measurements & Calculations LVIDd: 5.3 cm IVSd: 1.5 cm Ao root diam: 3.2 cm LVIDs: 3.4 cm LVPWd: 1.1 cm FS: 36.2 % LAV(MOD-sp4): 62.5 ml LA A4 area: 22.3 cm2 LA dimension(2D): 4.3 cm Time Measurements MV dec time: 0.24 sec Doppler Measurements & Calculations MV E max haile: 60.3 cm/sec Lat Peak E' Haile: 6.7 cm/sec Med Peak E' Haile: 6.2 cm/sec MV A max haile: 86.2 cm/sec E/E' lat: 9.0 E/E' med: 9.8 MV E/A: 0.70 MV dec slope: 247.3 cm/sec2 Ao V2 max: 145.2 cm/sec LV V1 max: 105.8 cm/sec Ao max P.4 mmHg LV V1 max P.5 mmHg Ao V2 mean: 101.2 cm/sec LV V1 mean P.6 mmHg Ao mean P.5 mmHg LV V1 mean: 77.1 cm/sec Ao V2 VTI: 26.3 cm LV V1 VTI: 18.9 cm AV (velocity ratio): 0.72 PA V2 max: 85.3 cm/sec TR max haile: 228.2 cm/sec TR max P.8 mmHg ECHO/Echo Complete W/ Contrast Interpretation Summary Normal LV size. Left ventricular systolic function is normal. The estimated ejection fraction is 55 %. Stage 1 diastolic dysfunction. The study was technically difficult. The study was technically limited. Contras t injection was performed. Ordering Physician: aSul Brush Referring Physician: Price Herndon Chi Performed By: Katerin Miller, RDCS, RVT
--- NOTE | 2023-03-20 15:19 | STRESSREP ---
Stress Test Report Pharmacologic myocardial perfusion stress test. 77-year-old man with a history of premature ventricular complexes Resting EKG demonstrates sinus rhythm with a rate of 82 bpm. Resting blood pressure is 142/74 mmHg. 0.4 mg of regadenoson was infused per usual protocol followed by rapid intravenous saline flush injection. Continuous EKG monitoring was performed. The maximum heart rate was 96 bpm which was 68% of max impacted heart rate the maximum workload was 1 metabolic equivalent. At rest there were no ST or T wave changes noted to suggest ischemia and at peak infusion nonspecific ST changes were noted which did not meet the criteria for ischemia. No clinical angina is noted. The final blood pressure was 148/70 mmHg. Myocardial perfusion protocol. 15 mCi of technetium 99m sestamibi was injected at rest. 0.4 mg of regadenoson was infused per usual protocol. At peak infusion 44.7 mCi of technetium 99m sestamibi was injected stress images were obtained stress and rest images were reconstructed and compared in the short axis vertical long and horizontal long axis. Gated images were also obtained. Perfusion SPECT analysis: Review of the stress images demonstrate normal uptake of tracer noted in all areas of the myocardium. The resting images similar demonstrated normal uptake of tracer noted in all areas of the myocardium. No areas of reversibility are noted to suggest ischemia and no previous infarct is noted. Gated SPECT analysis: The gated ejection fraction is 62%. Conclusion: Normal pharmacologic myocardial perfusion stress test. Preserved ejection fraction.
== END | disposition home or self-care (01) ==
LOC: CVS 07:29
PROVIDERS: PCP Family Medicine Geriatric Medicine; Referring Provider Internal Medicine Cardiovascular Disease; Visit Provider Internal Medicine Cardiovascular Disease
DX: I49.1 Atrial premature depolarization (principal); R55 Syncope and collapse; I25.2 Old myocardial infarction
CPT/HCPCS: 78452; 93017; 93306; A9500; Q9957; A4216; C8929; J2785

== ENCOUNTER → 2023-03-23 | Outpatient (CLI) | payer MEDICARE, BC, SELFPAY ==
[2023-03-23 15:11] LABS: Absolute Neutrophil Count 3.5 X10^3/uL (2.0-7.7); Basophil# 0.05 X10^3/uL; Eosinophil# 0.17 X10^3/uL; Eosinophils% 3.4 % (0-5); Hematocrit 38.8 % (40-54); Hemoglobin 12.9 g/dL (13.0-16.5); Lymphocyte % 19.8 % (19-41); Mean Corp Hgb Conc 33.2 g/dL (32-36); Mean Corpuscular Volume 99.2 fL (80-94); Mean Platelet Vol. 9.5 fl (6.2-12.0); Monocyte# 0.37 X10^3/uL; Monocyte% 7.3 % (0-10); NRBC Flagged by Analyzer 0 % (0-5); Neutrophil # 3.46 X10^3/uL (2.7-7.7); Neutrophil % 68.3 % (47-70); Platelet Count 220 K/mm3 (150-450); RBC Distribution Width CV 13.8 % (11.6-14.6); RBC Distribution Width SD 50.4 fl (35.1-43.9); Red Blood Count 3.91 M/mm3 (4.6-6.2); White Blood Count 5.1 K/mm3 (4.4-11.0)
[2023-03-23 15:23] LABS: Prothrombin Time (Protime)PT. 13.4 SECONDS (11.7-14.9)
[2023-03-23 16:08] LABS: AST(SGOT) 21 U/L (15-37); Alanine Aminotransfer ALT/SGPT 32 U/L (16-61); Albumin, Serum 3.4 g/dL (3.2-5.0); Alkaline Phosphatase 85 U/L (45-117); Anion Gap 3 (5-15); BUN 15 mg/dL (7-18); Calcium,Total 9.1 mg/dL (8.5-10.1); Chloride 104 mmol/L (98-107); EST Glomerular Filtration Rate 77 mL/min (>60); Est Glom Filt Rate - Afr Amer 93 mL/min (>60); Globulin 3.4 g/dL (2.2-4.2); Glucose 112 mg/dL (74-106); Potassium 4.3 mmol/L (3.5-5.1); Protein, Total 6.8 g/dL (6.4-8.2); Sodium Level 137 mmol/L (136-145)
== END | disposition home or self-care (01) ==
LOC: LABSPEC 14:30
PROVIDERS: Physician Assistant Medical; PCP Family Medicine Geriatric Medicine; Referring Provider Family Medicine Geriatric Medicine; Visit Provider Family Medicine Geriatric Medicine
DX: Z00.00 Encounter for general adult medical examination without abnormal findings (principal); R55 Syncope and collapse
CPT/HCPCS: 36415; 80053; 85025; 85610

== ENCOUNTER → 2023-03-25 | Outpatient (CLI) | payer MEDICARE, BC, SELFPAY ==
--- NOTE | 2023-03-25 10:01 | CT_ITS ---
CT RIGHT LOWER EXTREMITY CLINICAL INDICATION: Preoperative exam for total knee arthroplasty. TECHNIQUE: Axial CT images of the RIGHT lower extremity was performed without IV contrast material. Coronal and sagittal reformats were provided. RADIATION DOSAGE (If Supplied By Facility): CTDIvol = ( 18.76 ) mGy, DLP = ( 1557.48 ) mGycm COMPARISON: Radiographs of the right knee of 01/24/2023. FINDINGS: Bones: Osseous structures are normal without evidence of fracture or dislocation. No lytic or blastic osseous masses. Soft Tissues: The deep soft tissue structures are unremarkable. Small effusion in the suprapatellar joint space. Vascular calcifications. Joints: No significant hip joint narrowing. Posterior degenerative spur of the posterior aspect of the hip joint. Severe narrowing of the lateral joint compartment of the knee with marginal degenerative spurs medially and laterally. Degenerative spurs of the superior and inferior aspect of the patella as well as the anterior distal femur are seen. Subchondral cystic changes of the articular surface of the posterior aspect of the medial tibial plateau and to lesser extent of the femoral condyles. The tibiotalar joint and ankle mortise appear intact. Subchondral cystic changes are seen of the talar dome laterally. Mild sclerosis of the articular surface of the distal tibia. The superficial soft tissues are unremarkable without evidence of edema, hematoma, or foreign body. CT/Extremity Lower without Contra IMPRESSION: 1. Severe degenerative arthrosis of the knee as described above. 2. No evidence of acute osseous changes. 3. Vascular calcifications. Electronically Signed: Mukesh Cole MD at 15:47 EDT ,
== END | disposition home or self-care (01) ==
LOC: CT 09:58
PROVIDERS: PCP Family Medicine Geriatric Medicine; Referring Provider Orthopaedic Surgery; Visit Provider Orthopaedic Surgery
DX: M17.0 Bilateral primary osteoarthritis of knee (principal)
CPT/HCPCS: 73700

== ENCOUNTER 2023-03-31 10:23 | Day surgery (SDC) | payer MEDICARE, BC, SELFPAY ==
[2023-03-30 08:42] VITALS: BMI 37.0
--- NOTE | 2023-03-31 12:26 | CL.IE_ITS ---
Patient: ANKIT RIVERA Study Date: 03/31/2023 Performing: Saul Brush MD : 1945 Age: 77 Gender: male PROCEDURES PERFORMED [id number])INSERTION OF LOOP RECORDER INDICATIONS Syncope PROCEDURE DETAILS The patient was brought to the Catheterization Lab in the postabsorptive nonsedated state. Informed consent was obtained prior to the procedure. Local anesthetic was given subcutaneously to the left upper chest area with Lidocaine 2%. Incision was made to the left upper chest. ICM Reveal LINQ was inserted into the pocket. Steri-strips applied to Lt chest area. The patient tolerated the procedure well. Estimated Blood Loss: 5 ml's IMPLANTED / EX-PLANTED DEVICES IMPLANTED DEVICE(S): ICM Reveal LINQ - Director Money: [employer], Model # [id number] Serial # [id number] DEVICE PARAMETERS CONCLUSIONS / RECOMMENDATIONS Device Conclusions: Successful implantation of a patient activated loop recorder. Device Recommendations: Follow up with Primary Care Physician PROCEDURE MEDICATIONS Versed 1 mg IV Oxygen: 2 L/min via nasal cannula Antibiotic given in appropriate timeframe. Ancef 2 Gm IV @ 03/31/2023 12:05:47 Signed By Saul Brush MD On 03/31/2023 12:26:24 Saul Brush MD
== END 2023-03-31 13:25 | disposition home or self-care (01) ==
LOC: CLSP 10:26
PROVIDERS: PCP Family Medicine Geriatric Medicine; Referring Provider Internal Medicine Cardiovascular Disease; Visit Provider Internal Medicine Cardiovascular Disease
DX: R55 Syncope and collapse (principal); I47.20 Ventricular tachycardia, unspecified; I10 Essential (primary) hypertension; Z82.49 Family history of ischemic heart disease and other diseases of the circulatory system; I25.10 Atherosclerotic heart disease of native coronary artery without angina pectoris; E78.5 Hyperlipidemia, unspecified
CPT/HCPCS: 33285; 99152; 99153; J7040

== ENCOUNTER 2023-04-11 13:30 | Outpatient (RCR) | payer MEDICARE, BC, SELFPAY ==
--- NOTE | 2023-02-08 09:39 | HP.PTEVAL_ITS ---
Patient's Visit Information ANKIT RIVERA is a 77 year old M referred to Physical Therapy by Dr. Price Herndon MD with a diagnosis of RIGHT KNEE PAIN. Date of Evaluation: 02/08/23 Physical Therapist: Bob Mcmahan PT, Cert MDT, OCS - Visit Plan Frequency: 2x /Week Duration: 4 Weeks Plan: PT INTERVETIONS ROM/FLEXABLITY RIGHT ,STRENGTHNEING QUADS/HAMS/HIP ,FUNCTIONAL STRENGTHENING AND NUSTEP/BIKE - Subjective This 77 y/o male presents to physical therapy with right knee pain. Patient has had right knee pain many years . Patient had x-rays showed severe DJD . Seen orthopedic DR Page and recommends TKR . Plan to have surgery in possible March . Patient pain ache and occasional sharp. Patient is unable to squat/kneel . Patient symptoms worse with extended walking and standing. Denies paresthesia/tingling . Bowel/bladder -. Patient sleeping okay . Patient goal to get stronger. SOCIAL: . VOCATION: retired - Pain Right Knee Pain Intensity (Out of 10): 4 - Objective POSTURE: WFL. GAIT: reciprocal pattern mild forward posture mild decrease stance time. PALPATION: medial/lateral joint line. EDEMA: 1+ lower leg right. AROM: supine knee flexion 0-115 degrees. MMT ( peak force) quads 23.6 ,hamstrings 24.2 ,hip flexion 22.3 ,hip abduction 16.2. STAIR: ascend /descend alternating. FLEXABLITY: hamstrings min tight - Special Tests R Knee Anna - Meniscus: Negative R Knee Valgus - MCL: Negative R Knee Varus - LCL: Negative R Knee Patellar Apprehension - PFS: Negative R Knee Patellar Grind - PFS: Negative - Balance/Special Test Scores Lower Extremity Functional Score: 32 - Goals Goal 1:: Patient to be I with HEP knee. Goal Time Frame: 4-6 Weeks Goal 2:: Patient to improve AROM supine by 5 degrees to improve stairs Goal Time Frame: 4-6 Weeks Goal 3:: Patient to improve peak force quads/hams by 5-10 to improve function Goal Time Frame: 4-6 Weeks Goal 4:: Patient to demonstrate 50% improvement with increase function and gait Goal Time Frame: 4-6 Weeks Goal 5:: Patient to improve LFES score 5-10 points to improve function Goal Time Frame: 4-6 Weeks - Rehabilitation Potential Physical Therapy Diagnosis: This patient has right knee pain with DJD with decrease ROM ,pain ,decrease gait and weakness thus benefit from skilled PT Rehabilitation Potential: Good - Anticipated Interventions Patient/Client Instruction: Educate patient on: Condition, Plan of Care For the Purpose of:: To decrease pain, To decrease swelling/inflammation, To improve muscle performance and motor function, To improve ability to perform ADL's, To increase tolerance to activity/condition/position, To improve performance and independence with ADL's, To improve ability of physical actions for home/community/work/leisure, To decrease soft tissue restriction, To increase flexibility/ROM Therapeutic Exercise to Include: Strength training, Balance training, Postural training, Flexibilty training, Passive ROM, Active ROM For the Purpose of:: To decrease pain, To increase ROM, To improve nutrient delivery to tissue, To increase oxygenation perfusion, To improve muscle performance and motor function, To increase tolerance to act ivity/condition/position, To improve ability of physical actions for home/community/work/leisure, To improve health of tissue, To decrease soft tissue restriction, To increase flexibility/ROM Thank you for the opportunity to evaluate your patient. For Medicare and Medicare HMO plans, please review the plan of care and approve it. It will need to be FAXED BACK to us at [phone] for Medicare purposes. For Medicare only, by signing this I certify the plan of care. Please let me know if there are questions or concerns regarding this plan of care. Physician Sign ature: Date:
--- NOTE | 2023-04-11 14:00 | HP.PTEVAL_ITS ---
Patient's Visit Information Visit Information Visit Information: ANKIT RIVERA is a 77 year old M referred to Physical Therapy by Dr. Price Herndon MD with a diagnosis of RIGHT KNEE PAIN. Date of Evaluation: 02/08/23 Physical Therapist: Bob Mcmahan PT, Cert MDT, OCS Visit Plan Frequency: 2x /Week Duration: 4 Weeks Plan: D/C TKR Subjective Subjective: This 77 y/o male presents to physical therapy with right knee pain. Patient has had right knee pain many years . Patient had x-rays showed severe DJD . Seen orthopedic DR Page and recommends TKR . Plan to have surgery in possible March . Patient pain ache and occasional sharp. Patient is unable to squat/kneel . Patient symptoms worse with extended walking and standing. Denies paresthesia/tingling . Bowel/bladder -. Patient sleeping okay . Patient goal to get stronger. SOCIAL: VOCATION: retired Pain Right Knee: Pain Intensity (Out of 10): 5 Objective Objective: POSTURE: WFL GAIT: reciprocal pattern mild forward posture mild decrease stance time PALPATION: medial/lateral joint line EDEMA: 1+ lower leg right AROM: supine knee flexion 0-115 degrees MMT ( peak force) quads 23.6 ,hamstrings 24.2 ,hip flexion 22.3 ,hip abduction 16.2 STAIR: ascend /descend alternating FLEXABLITY: hamstrings min tight Special Tests R Knee Anna - Meniscus: Negative R Knee Valgus - MCL: Negative R Knee Varus - LCL: Negative R Knee Patellar Apprehension - PFS: Negative R Knee Patellar Grind - PFS: Negative Balance/Special Test Scores Lower Extremity Functional Score: 42 Goals Goal 1:: Patient to be I with HEP knee. Goal Time Frame: 4-6 Weeks Goal 2:: Patient to improve AROM supine by 5 degrees to improve stairs Goal Time Frame: 4-6 Weeks Goal 3:: Patient to improve peak force quads/hams by 5-10 to improve function Goal Time Frame: 4-6 Weeks Goal 4:: Patient to demonstrate 50% improvement with increase function and gait Goal Time Frame: 4-6 Weeks Goal 5:: Patient to improve LFES score 5-10 points to improve function Goal Time Frame: 4-6 Weeks Rehabilitation Potential Physical Therapy Diagnosis: This patient has right knee pain with DJD with decrease ROM ,pain ,decrease gait and weakness thus benefit from skilled PT Rehabilitation Potential: Good Anticipated Interventions Patient/Client Instruction: Educate patient on: Condition and Plan of Care For the Purpose of:: To decrease pain, To decrease swelling/inflammation, To improve muscle performance and motor function, To improve ability to perform ADL's, To increase tolerance to activity/condition/position, To improve performance and independence with ADL's, To improve ability of physical actions for home/community/work/leisure, To decrease soft tissue restriction and To increase flexibility/ROM Therapeutic Exercise to Include: Strength training, Balance training, Postural training, Flexibilty training, Passive ROM and Active ROM For the Purpose of:: To decrease pain, To increase ROM, To improve nutrient delivery to tissue, To increase oxygenation perfusion, To improve muscle performance and motor function, To increase tolerance to activity/condition/position, To improve ability of physical actions for home/community/work/leisure, To improve health of tissue, To decrease soft tissue restriction and To increase flexibility/ROM Text: Thank you for the opportunity to evaluate your patient. For Medicare and Medicare HMO plans, please review the plan of care and approve it. It will need to be FAXED BACK to us at [phone] for Medicare purposes. For Medicare only, by signing this I certify the plan of care. Please let me know if there are questions or concerns regarding this plan of care. Physician Signature: Date:
== END 2023-04-11 19:00 | disposition home or self-care (01) ==
LOC: PT 13:30
PROVIDERS: PCP Family Medicine Geriatric Medicine; Referring Provider Family Medicine Geriatric Medicine; Visit Provider Family Medicine Geriatric Medicine
DX: M17.11 Unilateral primary osteoarthritis, right knee (principal)
CPT/HCPCS: 97110; 97162

== ENCOUNTER 2023-04-18 06:03 | Inpatient (IN) | payer MEDICARE, BC, SELFPAY ==
[2023-04-12 09:33] LABS: Hemoglobin A1c 5.6 % (3.8-5.6)
[2023-04-12 09:59] LABS: Magnesium 2.3 mg/dL (1.6-2.6)
[2023-04-13 04:08] LABS: Fructosamine 239 umol/L (0-285)
[2023-04-18] VITALS (20 sets, daily range): BP systolic 83–143; BP diastolic 46–84; PULSE 62–84; RESP 16–18; TEMP 36–37; O2SAT 95–99; BMI 37.1
--- NOTE | 2023-04-18 | KNEE_PTH ---
PATIENT: ANKIT RIVERA LOC: MS3 U#:[id number] AGE/SX: 77/M ROOM: WA321 RE04/18/[address]: Dr. Burton Quinn DO : 1945 BED: 1 DIS: 04/20/2023 SPEC #: [id number] RECD: 04/18/23 13:33 STATUS: BHANU JUSTYN #: [id number] OLIVIA: 04/18/23 00:[address]: Burton Quinn DEPT: SURGICAL PATHOLOGY RECD BY: Armando Washington ENTERED: 04/18/23 13:33 SP TYPE: TOTAL KNEE OTHR DR: Dr. Price Herndon MD Tissues: Knee, NOS Procedures: Decalcification bone/plaque Surgery Specimen Level IV HEADER OPERATION: ERAS, right total knee arthroplasty robotic assisted PRE-OP DIAGNOSIS: Chronic pain of right knee TISSUE SUBMITTED: Bone and tissue of right knee MICROSCOPIC DIAGNOSIS Bone and tissue of right knee, total knee resection: Severe degenerative joint disease. AM:cheli 04/21/2023 MICROSCOPIC DESCRIPTION Slides are reviewed. GROSS DESCRIPTION Received is one container designated bone and tissue right knee. The specimen consists of multiple fragments of agarwal-yellow bone measuring in aggregate 12.0 x 12.0 x 3.0 cm. Also in the specimen container are multiple fragments of yellow-white soft tissue (fibrocartilaginous tissue) measuring in aggregate 7.0 x 1.5 x 1.0 cm. A number of bony fragments contain articular surfaces consistent with tibial plateau and femoral condyle and displaying prominent osteophyte formation, eburnation and bone erosion. Linen Grader sections are submitted in two cassettes as follows: 1 - soft tissue, 2 - bone after decalcification. / SJ:cheli 04/18/2023 TC:5 [facility]: [id number], [id number]
[2023-04-18 07:00] LABS: Bedside Glucose 137 mg/dL (74-106)
--- NOTE | 2023-04-18 07:05 | PCM.HP.BLA ---
History and Physical Date of Admission: 04/18/23 [facility] [address] [place] [address] OFFICE VISIT Date of Service: 04/07/23 MR#: [id number] Acct: [id number] Name: ANKIT RIVERA Rep #: [id number] : 1945 Provider: Dr. Burton Quinn DO Age/Sex: 77/M Location: [facility] [place].[facility] Status: Signed Intake Vital Signs 02/24/2308:26 03/31/2310:42 Height 5 ft 10 in 5 ft 10 in Intake Visit Reasons: right knee Chief Complaint: right knee Accompanied by: Self Is patient in pain?: Yes Allergies Beta-Blockers (Beta-Adrenergic Bloc Allergy (Severe, Verified 03/23/23 09:30) Hivesceftriaxone [From Rocephin] Allergy (Severe, Verified 03/23/23 09:30) Anaphylaxishydralazine Allergy (Severe, Verified 03/23/23 09:30) Swelling- eyes, feetIodinated Contrast Media [CONTRASTS] Allergy (Verified 03/23/23 09:30) Hivesiodine Allergy (Verified 03/23/23 09:30) HivesACE Inhibitors Adverse Reaction (Severe, Verified 03/23/23 09:30) Swellingamlodipine Adverse Reaction (Severe, Verified 03/23/23 09:30) Edema,legsclonidine Adverse Reaction (Severe, Verified 03/23/23 09:30) RAshvalsartan [From Diovan] Adverse Reaction (Severe, Verified 03/23/23 09:30) RAsh Medications coenzyme Q10 100 mg capsule 100 mg PO DAILY 05/17/17 [History Confirmed 04/07/23] chondroitin sulfate A sodium 400 mg capsule 1,200 mg PO QDAY 01/18/18 [History Confirmed 04/07/23] glucosamine HCl 1,500 mg tablet 1,500 mg PO QDAY 01/18/18 [History Confirmed 04/07/23] isosorbide mononitrate 60 mg tablet,extended release 24 hr 60 mg PO DAILY #90 tabs 01/18/18 [Rx Confirmed 04/07/23] calcium carbonate 500 mg-vitamin D3 10 mcg (400 unit) tablet 1 tab PO DAILY 01/19/22 [History Confirmed 04/07/23] cetirizine 10 mg tablet (Zyrtec) 10 mg PO DAILY PRN allergy symptoms 01/19/22 [History Confirmed 04/07/23] doxazosin 4 mg tablet 4 mg PO QHS #90 tabs 09/05/22 [Rx Confirmed 04/07/23] multivitamin 1 tab PO DAILY 09/05/22 [History Confirmed 04/07/23] pravastatin 40 mg tablet 40 mg PO QHS #90 tabs 09/05/22 [Rx Confirmed 04/07/23] nitroglycerin 0.4 mg sublingual tablet 0.4 mg sublingual Q5M PRN cp #20 tabs 02/23/23 [Rx Confirmed 04/07/23] potassium chloride 20 mEq tablet,extended release(part/cryst) 20 meq PO DAILY #90 tabs 02/23/23 [Rx Confirmed 04/07/23] furosemide 20 mg tablet (Lasix) 40 mg PO DAILY 03/23/23 [History Confirmed 04/07/23] diltiazem HCl 120 mg capsule,extended release 24 hr 120 mg PO DAILY #90 caps 03/30/23 [Rx Confirmed 04/07/23] PFS Medical History Acute respiratory failure with hypoxia Asthma Atherosclerotic heart disease of [place] coronary artery without angina pectoris Essential hypertension Hiatal hernia Long-term use of high-risk medication Nonsustained ventricular tachycardia Obesity (BMI 30-39.9) PAC (premature atrial contraction) Pure hypercholesterolemia PVC (premature ventricular contraction) Syncope Surgical History History of carpal tunnel surgery History of cataract extraction History of cholecystectomy Family History Mother CAD (coronary artery disease) Myocardial infarctionFather CAD (coronary artery disease) Myocardial infarctionBrother CAD (coronary artery disease) Hx of CABGBrother CAD (coronary artery disease) Social History Smoking Status: Never smoker alcohol intake: current details: occasional substance use type: does not use caffeine: Yes Type: coffee Number of servings: 3 HPI right knee Details: Parts of this documentation were recorded by a scribe, this documentation accurately reflects the service provided and the decisions made by me, Dr. Burton Quinn, DO 04/07/23 1012. ANKIT RIVERA is a 77 year old M here today for right knee IOVERA treatment prior to TKA that is scheduled for 04/18/23. He continues to have right knee pain with ambulation and WB. Ortho Exam General General: Yes no acute distress Neurologic: Yes alert and Yes oriented x3 Psychologic: Yes reasonable and appropriate Right Knee Skin/Wound: Yes CDI, No erythema, No ecchymosis and No swelling Homans Sign: No Knee ROM: No ROM-Extension -20 to 0 (5) and No ROM-Flexion 0-140 (105) Examination: Yes Med jt line tenderness and Yes Lat jt line tenderness Stability: NML: Anterior Drawer and NML: Posterior Drawer Patella Translation: 1 Patella Grind: Yes KNEE: pitting edema to right leg faint joint effusion no collateral instability intact sensation to light touch Left Knee Skin/Wound: Yes CDI, No ecchymosis, No erythema and No swelling Homans Sign: No Knee ROM: Yes ROM-Extension -20 to 0 and No ROM-Flexion 0-140 (118) Examination: Yes med jt line tenderness and Yes Lat jt line tenderness Stability: NML: Anterior Drawer, NML: Posterior Drawer, NML: Valgus 30 and NML: Varus 30 Patella Translation: 1 Patella Grind: Yes KNEE: edema to distal 3rd of leg no collateral instability no joint effusion intact sensation to light touch Head: Normocephalic Atraumatic Chest: symmetrical rise, non-labored breathing, no audible wheeze Abdomen: no guarding, non-rigid Office Procedures Iovera Procedure Details:: Preoperative diagnosis :right knee pain Postoperative diagnosis: Same Procedure: Cryotherapy with Iovera device to anterior femoral cutaneous nerve and 2 branches of the infrapatellar saphenous nerve III nerves in total Description of procedure: Patient was brought back to the procedure room the operative extremity was identified by both patient and physician. The PIP flexion crease was measured to the midpoint of the patella and this distance was divided in 3 resulting in 10 cm location proximal to the midpoint of the patella. This line was extended medial and lateral to the extent of the edges of the patella. This was our treatment line for the anterior femoral cutaneous nerve. A second treatment line was made 5 cm medial to the inferior pole of the patella and 5 cm distally. The leg was prepped with alcohol and Betadine. Lidocaine with epi was used along the treatment lines. Using the Iovera device treatment lines were treated with 1 minute cycles. Reproduction of paresthesias was monitored in the area of nerve distribution. Once all 3 nerves were treated across the 2 treatment lines patient was cleaned and a light dressing with 4 x 4 and Tim wrap was applied. Patient tolerated the procedure without complication. Supplemental Info 01/24/2023 x-ray right knee: Advanced tricompartmental DJD [id number] 02/06/2023 x-ray left knee: Moderate to advanced tricompartmental DJD Coding Level of Care Code Ramona Flowers Diagnoses Chronic pain of right knee M25.561; G89.29 Chronicity: chronic Assessment and Plan Assessment and Plan (1) Right knee pain: Status: Acute Qualifiers: Chronicity: chronic Qualified Code(s): M25.561 - Pain in right knee; G89.29 - Other chronic pain Orders: Orders Iovera Today M25.569 - Pain in unspecified knee Plan Patient educated on the IOVERA procedure and the bennifits. He wishes to proceed with IOVERA treatment today in the office. He is also schedule for a Right TKA. DOS: 04/18/23 Risks, benefits and alternatives of surgery reviewed including but not limited to bleeding, infection, nerve, artery and/or tissue damage, fracture, VTE, mechanical feel of the knee, continued pain, stiffness and expected post-operative course. He does have Follow up 2 weeks post op or sooner if pain, swelling, numbness or associated symptoms, or concerns develop. All questions answered. Patient in agreement of plan. 04/07/23 1104 <Electronically signed by Burton Quinn DO> Date Burton Quinn DO Cosigner Signature: Date (if applicable) CC: ~ I have examined the patient and the H&P has been reviewed. There are no clinical changes since date of exam.
[2023-04-18] MEDS: Lactated Ringers 1,000 ML 15 ML IV (07:06)
[2023-04-18] MEDS: Magnesium 1 GM over 15 mins IV (07:08)
[2023-04-18] MEDS: Celecoxib 200 MG Capsule 400 MG PO (07:13)
[2023-04-18] MEDS: Acetaminophen 500 MG Tablet 1000 MG PO ×3 (07:13→22:07)
[2023-04-18] MEDS: Gabapentin 600 MG Tablet PO (07:13)
[2023-04-18] MEDS: Scopolamine 1mg/72hr Patch 1 PATCH TD (07:19)
[2023-04-18] MEDS: TXA 1000mg in NS100 100ml (IVPB at Incision) 660 MG IV (07:50)
[2023-04-18] MEDS: dexAMETHasone 10 MG/ML Vial IV (08:05)
[2023-04-18] MEDS: TXA 1000mg in NS100 100ml (IVPB at Closure) 660 MG IV (08:45)
[2023-04-18] MEDS: Epinephrine (1 mg/ml) 1 MG/ML VIAL (09:50)
[2023-04-18] MEDS: dexAMETHasone 4 MG/ML Vial (09:50)
[2023-04-18] MEDS: Bupivacaine 0.5% PF 10 ML VIAL (09:50)
--- NOTE | 2023-04-18 10:27 | OP.PCM_ITS ---
Operative Report Date of Procedure: 04/18/23 Preoperative diagnosis: Right knee DJD Postoperative diagnosis: Same Procedure: Right total knee arthroplasty CT guided Robotic Assisted Implant: Rose triathlon press fit, femoral component size7, tibial baseplate size 7, asymmetric patella size 40, polyethylene X3 size 9 CS Anesthesia: Spinal with adductor canal block Tourniquet time: 12 minutes at 300 mmHg Complications: None Condition: Stable to PACU Estimated blood loss: 200 cc Handbag Finisher Davie Chen. My physician office services assistant was a vital part of this case. He was important in appropriate retraction during the case, and protection of soft tissues during procedure. His intimate knowledge of the case and my steps aided in safe and expedient completion of the procedure as well as appropriate position of the extremity during the case. He was also vital in assisting with closure under my direct supervision. Indication for procedure: This is a 77-year-old male with long standing degenerative joint disease of the knee who has failed conservative treatment and wished to proceed with elective total knee arthroplasty. Risk benefits and alternatives were reviewed including; risk of bleeding, infection, nerve artery and tissue damage, continued pain, postoperative stiffness, venous thromboembolism, need for postoperative rehabilitation, mechanical feel to the knee, and expected postoperative course. The pre- operative CT and templating was performed with component sizing. Procedure: The patient was met in the preoperative holding area. The operative extremity was identified by both patient and physician and was marked. Patient was met by anesthesia. An adductor canal block was placed by anesthesia postop eratively the patient was brought back to the operating room on a wheeled cart and transferred to the operating table in the supine position. Anesthesia was started. A well-padded tourniquet was placed on the operative extremity. The patient was prepped and draped in the usual sterile fashion. A timeout was called to ensure the proper patient procedure and extremity were being contemplated. An esmarch was used to exsanguinate the extremity. The tourniquet was inflated. A 10 blade scalpel was used to make a midline incision down through the skin and subcutaneous tissue. Skin retractors placed. Bovie and Aquamantis were used to perform meticulous hemostasis. full-thickness flaps were elevated medial and lateral along the joint capsule. A deep blade scalpel was used to perform a medial parapatellar arthrotomy. The knee was brought to full extension. A bovie was used to release the soft tissues off the most proximal aspect of the medial tibial plateau, a three-quarter inch curved osteotome was also used in this process. The infrapatellar fat pad was excised. The suprapatellar fat pad was excised partially anteriorolateraly and portion the anterioromedial pad was elevated from the femur. At this point our intra- articular femoral array was placed at a 45 degree angle proximal and posterior to the medial epicondyle. femoral checkpoint was placed at this time. Our tibi al array was placed greater than 1 hands breath below the incision at a 20 degree angle stab incisions were made with a 15 blade scalpel and pins were placed and attached to the tibial array , tibial checkpoint was placed in the proximal tibial metaphysis. Tourniquet was let down. At this point registration frances were taken throughout the knee . Once the knee was registered we then tensioned the medial and lateral ligaments in extension and 90 degrees of flexion. We then used these numbers to adjust our components within parameters to balance the knee in both flexion and extension once this was done on our monitor we then proceeded with using the robotic arm to make our tibial plateau cut, anterior and posterior chamfer and distal femur cuts. we removed the cut fragments with the use of a bovie and Leona, we did use a lamina motion picture scene builder to insure we visualized and removed all posterior osteophytes and at this time also used the Aquamantis on the posterior joint capsule. we then trialed and achieved the desired plan with a well-balanced knee. we used the green probe to angelia the corresponding tibial rotation based on our CT template. Lug holes were drilled in the femur the tibia preparation was completed with the appropriate sized base plate pinned based on previous rotation angelia. An appropriate sized fin punch was used on the tibia and 4 corner drill was used for the press fit component and the patella was prepared by first using a caliper to ensure sufficient bone stock and a patellar reamer to remove the desired amount of bone. lug holes drilled for an asymmetric poly. We then brought the knee through range of motion with excellent patellar tracking. We thoroughly irrigated the knee. Trial components were removed a posterior capsular injection was preformed with our standard cocktail. In addition the aqua Mantis was also used to aid in hemostasis. Betadine rinse was allowed to sit and washed out completely. Components were press-fit into place. Aricept rinse was then used followed by several more liters of irrigation after it was allowed to sit. The joint capsule was closed with #1 Ethibond [id number] followed by Vicryl in the subcutaneous tissues with joseph in the skin. Arrays and checkpoints were removed prior to closure all counts were correct stab incisions were closed with a staple standard dressing in the form of Mepilex AG for the main incision and a small Mepilex over the pin holes. Thigh-high MISAEL hose applied over top of dressing. Patient tolerated the procedure well and was directed to PACU in stable condition . There were no intraoperative complications.
--- NOTE | 2023-04-18 10:47 | RAD_ITS ---
STUDY: X-RAY - RIGHT KNEE REASON FOR EXAM: Male, 77 years old. Post op -- AP and Lateral x-ray of operative knee in PACU TECHNIQUE: 2 view(s) of the knee. COMPARISON: Comparison is made with prior examination dated February 06, 2023. FINDINGS: Normal visualized distal femur. Normal visualized proximal tibia and fibula. Normal proximal tibiofibular articulation. The patient is status post total knee replacement. There is good alignment. Postoperative soft tissue changes. RAD/Knee 1 or 2 Views IMPRESSION: Status post total knee replacement. There is good alignment. Postoperative soft tissue changes. Electronically Signed: Bhupinder Hughes MD at 11:05 EDT ,
[2023-04-18] MEDS: Lactated Ringers 1,000 ML 125 ML IV ×3 (10:59→22:06)
[2023-04-18 12:07] LABS: Creatinine, Serum 0.89 mg/dL (0.70-1.30); EST Glomerular Filtration Rate 87 mL/min (>60); Est Glom Filt Rate - Afr Amer 106 mL/min (>60); Estimated Creatinine Clearance 69.49 ml/min
[2023-04-18] MEDS: oxyCODONE 5 MG Tablet PO (17:28)
[2023-04-18] MEDS: Vancomycin IV 1,000 MG/200 ML BAG 200 MG IV (18:35)
[2023-04-18] MEDS: Senna/Docusate Sodium 1 Tablet 2 TABLET PO (22:07)
[2023-04-18] MEDS: Pravastatin 40 MG Tablet PO (22:07)
[2023-04-18] MEDS: Doxazosin 4 MG Tablet PO (22:08)
[2023-04-19 01:39] VITALS: BP 149/78; PULSE 81; RESP 16; TEMP 35.8; O2SAT 93
[2023-04-19 05:20] VITALS: BP 129/78; PULSE 88; RESP 12; TEMP 36.3; O2SAT 95
[2023-04-19] MEDS: Acetaminophen 500 MG Tablet 1000 MG PO ×3 (05:31→20:29)
[2023-04-19] MEDS: APIXABAN 2.5 MG TABLET (WCH) PO ×2 (05:58→20:29)
[2023-04-19 06:13] LABS: Hematocrit 35.8 % (40-54); Hemoglobin 11.9 g/dL (13.0-16.5); Mean Corp Hgb Conc 33.2 g/dL (32-36); Mean Corpuscular Hgb 33.3 pg (27.0-32.0); Mean Corpuscular Volume 100.3 fL (80-94); Mean Platelet Vol. 9.9 fl (6.2-12.0); Platelet Count 179 K/mm3 (150-450); RBC Distribution Width CV 13.3 % (11.6-14.6); RBC Distribution Width SD 49.6 fl (35.1-43.9); Red Blood Count 3.57 M/mm3 (4.6-6.2); White Blood Count 7.6 K/mm3 (4.4-11.0)
[2023-04-19 07:34] LABS: Anion Gap 3 (5-15); BUN 11 mg/dL (7-18); BUN/Creat Ratio 12.7 RATIO (10-20); Calcium,Total 8.7 mg/dL (8.5-10.1); Chloride 104 mmol/L (98-107); Creatinine, Serum 0.87 mg/dL (0.70-1.30); EST Glomerular Filtration Rate 90 mL/min (>60); Est Glom Filt Rate - Afr Amer 109 mL/min (>60); Estimated Creatinine Clearance 71.09 ml/min; Glucose 128 mg/dL (74-106); Potassium 4.7 mmol/L (3.5-5.1); Sodium Level 137 mmol/L (136-145)
[2023-04-19] MEDS: dilTIAZem CD 120 MG Capsule PO (09:30)
[2023-04-19] MEDS: Potassium Chloride Oral Tablet 20 MEQ PO (09:30)
[2023-04-19] MEDS: Isosorbide Mononitrate 60 MG Tablet PO (09:30)
[2023-04-19] MEDS: Calcium Carb/Vitamin D 1 TABLET Tablet PO (09:30)
[2023-04-19] MEDS: Senna/Docusate Sodium 1 Tablet 2 TABLET PO ×2 (09:31→20:30)
[2023-04-19 09:36] VITALS: BP 141/67; PULSE 73; RESP 16; TEMP 36.6; O2SAT 98
--- NOTE | 2023-04-19 10:34 | CASEMGMT ---
ALFONSO LEDBETTER Assessment: Face to Face with pt for initial transition planning/care coordination assessment. RN KHLOE introduced self and role at [facility], pt voices understanding and consents to assessment. Pt is A/O x4 and answers all questions appropriately at this time. Pt sitting up in chair in no distress eating breakfast. Care providers, pharmacy, and demographics verified/updated. Admitting Dx: R total knee with latonia PCP:Yanick Specialists: Kai, ortho; Gonsalo, cardio Preferred Pharmacy: [facility] Retail [facility] [employer] [facility]lie Prescription Benefit: yes LNOK: Leonora Aparicio, Living Arrangements: Pt lives with in a single story home with 2 steps to enter. Pt reports he is I in ADL's and spouse does IADL's. Pt denies concerns at home. Transportation: Pt drives self and denies concerns with transportation. Pt will transport pt until he can drive again. DME/HHC/SNF: Pt has a shower chair, cane, FWW, walk in shower and CHC with grab bars. Pt denies hx of HHC or SNF stays. Pt states no concerns with going home at time of dc. Pt has therapy set up at [facility] on Monday at 11am. TC to confirm time and placed on dc instructions. Pt states no further concerns/needs. CM to follow. Advised pt to ask CM if any further question/concerns/needs arise, voices understanding. Pt Goal: Home with outpt therapy already set up Plan: Home with outpt therapy already set up
--- NOTE | 2023-04-19 12:32 | PCM.PN.ORT ---
Subjective Subjective Patient seen and examined. Doing well pain controlled denies nausea vomiting shortness of breath or chest pain no other complaints, was able to ambulate with physical therapy Objective Data Objective Data Vital Signs: Vital Signs Temp Pulse Resp BP Pulse Ox O2 Del Method O2 Flow Rate 97.8 F 73 16 141/67 H 98 Room Air 4 04/19/23 09:36 04/19/23 09:36 04/19/23 09:36 04/19/23 09:36 04/19/23 09:36 04/19/23 09:38 04/18/23 12:49 Oxygen Flow Rate (L/min) 4 Oxygen Delivery Method Room Air Weight: 259 lb 3.2 oz Body Mass Index (BMI) 37.1 Intake & Output: Intake and Output for Last 24 Hours 04/17/23 04/18/23 04/19/23 23:59 23:59 23:59 Intake Total 4332 / 4332 1154.75 / 1154.75 Output Total 1375 / 1375 1650 / 1650 Balance 2957 / 2957 -495.25 / -495.25 Lab / Micro Data 04/19/23 05:30 04/19/23 05:30 Labs: Laboratory Results - last 24 hr 04/19/23 05:30: WBC 7.6, RBC 3.57 L, Hgb 11.9 L, Hct 35.8 L, MCV 100.3 H, MCH 33.3 H, MCHC 33.2, RDW Std Deviation 49.6 H, RDW Coeff of Dc 13.3, Plt Count 179, MPV 9.9, Sodium 137, Potassium 4.7, Chloride 104, Carbon Dioxide 30.0, Anion Gap 3 L, BUN 11, Creatinine 0.87, Estim Creat Clear Calc 71.09, Est GFR (MDRD) Af Amer 109, Est GFR (MDRD) Non-Af 90, BUN/Creatinine Ratio 12.7, Glucose 128 H, Calcium 8.7 Micro: Microbiology 04/12/23 08:34 Swab (Method) Nasal Screen MRSA/MSSA - Final Physical Exam Const alert, oriented x3 and no apparent distress General Appearance: cooperative Extremity Extremity Narrative: Right knee dressing clean dry intact compartment soft neurovascular intact Assessment & Plan Assessment/Plan (1) S/P total knee arthroplasty: QUALIFIERS: Laterality: right Qualified Code(s): Z96.651 - Presence of right artificial knee joint PLAN: Plan Postop day #1 right total knee arthroplasty. PT OT weightbearing as tolerated encourage knee range of motion DVT prophylaxis Eliquis 2.5 mg twice daily thigh-high MISAEL NIXs DC planning home tomorrow outpatient physical therapy Follow-up in the office 2 weeks
--- NOTE | 2023-04-19 12:34 | DCINST_ITS ---
Discharge Instructions Diet Discharge Diet: No restrictions Dressing / Incision Call your doctor if you observe: Shortness of breath and Chest pain Additional Dressing/Incision Instructions:: Ice and elevate lower extremities 2 weeks while not ambulating. Ambulation is encouraged. Weight bearing as tolerated. Use assistive devise for stability. Encourage FULL knee extension and flexion 1 time EVERY time you get up and down and MULTIPLE times per day. No showering 72 hours after surgery. Begin showering postop day #3. Remove the dressing prior to shower and gently wash with warm water and antibacterial soap then pat dry and place abdominal pad (or plain gauze) and MISAEL hose over top. This is to be done daily. Do not submerge for 3 weeks. If not showering daily after the initial 72 hours then you must clean incision and change dressing daily. Do not allow animals near the incision area. Keep clean. Follow anti- coagulation recommendations as prescribed. Do not take any NSAIDs while on blood thinner. Do not take any additional narcotic pain medication other than what was prescribed on your surgery day without discussing with physician. Narcotic medication can be addictive. Do not drink alcohol while taking narcotics. Supplement narcotic prescription with acetaminophen 1000 mg 4 times a day. Start physical therapy. If you are not currently scheduled for physical therapy or you are unsure of appointment time please call office MP to arrange. Call Dr. Quinn with any concerns. Follow Up Care Please Follow Up With: Burton Quinn DO When: 2 weeks Test Results: Test results from this visit will be discussed in further detail at your follow- up appointment, if applicable. Discharge Plan Admission Admit Date/Time: 04/18/23 06:03 Primary Reason for Your Visit: Right total knee arthroplasty Attending Provider: Burton Quinn Primary Care Provider: Price Herndon Chi Discharge Orders/Prescriptions Prescriptions: New acetaminophen [acetaminophen] 500 mg tablet 1,000 mg PO Q6H PRN Qty: 100 0RF Eliquis 2.5 mg tablet 2.5 mg PO BID Qty: 30 0RF oxycodone 5 mg tablet 5 - 10 mg PO Q4H PRN (Reason: pain) 7 Days Qty: 60 0RF Continued isosorbide mononitrate 60 mg tablet extended release 24 hr 60 mg PO DAILY Qty: 90 3RF glucosamine HCl 1,500 mg tablet 1,500 mg PO QDAY calcium carbonate-vitamin D3 500 mg-10 mcg (400 unit) tablet 1 tab PO DAILY potassium chloride 20 mEq tablet,ER particles/crystals 20 meq PO DAILY Qty: 90 4RF nitroglycerin 0.4 mg tablet, sublingual 0.4 mg SUBLINGUAL Q5M PRN (Reason: cp) Qty: 20 1RF furosemide [Lasix] 20 mg tablet 40 mg PO PRN coenzyme Q10 100 MG capsule 100 mg PO DAILY multivitamin Tablet 1 tab PO DAILY doxazosin 4 mg tablet 4 mg PO QHS Qty: 90 3RF pravastatin 40 mg tablet 40 mg PO QHS Qty: 90 3RF diltiazem HCl 120 mg capsule,extended release 24hr 120 mg PO DAILY Qty: 90 3RF Referrals / Follow Up: Price Herndon Chi, MD [Primary Care Provider] - Disposition Disposition (needs filled in before D/C Order can be placed): Home, Self Care
[2023-04-19] MEDS: oxyCODONE 5 MG Tablet PO (12:56)
--- NOTE | 2023-04-19 14:03 | PHA.DC.MC.R ---
Pharmacy [facility] has performed discharge medication reconciliation and counseling for this patient. 1. Eliquis 2.5 mg BID PO 2. Acetaminophen 1000 mg PO Q6H PRN 3. Oxycodone 5-10 mg PO q4H PRN The patient's discharge medication list was reviewed for discrepancies and discrepancies were resolved. The patient was counseled on the following discharge medications and changes in medications for homegoing were reviewed. The Reason for Use, instructions for use, and potential side effects were reviewed for all new medications. The patient's questions regarding all of their medications were answered. The patient was able to verbally demonstrate an understanding of their discharge medications. The patient was counselled on Eliquis, Acetaminophen, and Oxycodone prescriptions by pharmacy technician per diem Rudolph. Medications at Discharge Home Medications coenzyme Q10 100 mg capsule 100 mg PO DAILY SUPPLEMENT 05/17/17 glucosamine HCl 1,500 mg tablet 1,500 mg PO QDAY SUPPLEMENT 01/18/18 isosorbide mononitrate 60 mg tablet,extended release 24 hr 60 mg PO DAILY HEART #90 tabs 01/18/18 calcium carbonate 500 mg-vitamin D3 10 mcg (400 unit) tablet 1 tab PO DAILY SUPPLEMENT 01/19/22 doxazosin 4 mg tablet 4 mg PO QHS BP #90 tabs 09/05/22 multivitamin 1 tab PO DAILY SUPPLEMENT 09/05/22 pravastatin 40 mg tablet 40 mg PO QHS CHOLESTEROL #90 tabs 09/05/22 nitroglycerin 0.4 mg sublingual tablet 0.4 mg sublingual Q5M PRN cp #20 tabs 02/23/23 potassium chloride 20 mEq tablet,extended release(part/cryst) 20 meq PO DAILY SUPPLEMENT #90 tabs 02/23/23 furosemide 20 mg tablet (Lasix) 40 mg PO PRN EDEMA 03/23/23 diltiazem HCl 120 mg capsule,extended release 24 hr 120 mg PO DAILY BP #90 caps 03/30/23 acetaminophen 500 mg tablet 1,000 mg (2 x 500 mg) PO Q6H PRN #100 tabs 04/19/23 apixaban 2.5 mg tablet (Eliquis) 2.5 mg PO BID #30 tabs 04/19/23 oxycodone 5 mg tablet 5 - 10 mg (1 - 2 x 5 mg) PO Q4H PRN pain 7 days #60 tabs 04/19/23
[2023-04-19] MEDS: DiphenhydrAMINE 25 MG Capsule 50 MG PO (16:56)
[2023-04-19 16:57] VITALS: BP 126/72; PULSE 83; RESP 16; TEMP 36.5; O2SAT 98
[2023-04-19 20:26] VITALS: BP 136/64; PULSE 80; RESP 16; TEMP 36.4; O2SAT 98
[2023-04-19] MEDS: Pravastatin 40 MG Tablet PO (20:29)
[2023-04-19] MEDS: Doxazosin 4 MG Tablet PO (20:30)
[2023-04-20 03:00] VITALS: BP 139/72; PULSE 73; RESP 16; TEMP 37.2; O2SAT 98
[2023-04-20 06:03] LABS: Hematocrit 32.8 % (40-54); Hemoglobin 10.6 g/dL (13.0-16.5); Mean Corp Hgb Conc 32.3 g/dL (32-36); Mean Corpuscular Hgb 32.7 pg (27.0-32.0); Mean Corpuscular Volume 101.2 fL (80-94); Mean Platelet Vol. 9.8 fl (6.2-12.0); Platelet Count 174 K/mm3 (150-450); RBC Distribution Width CV 13.6 % (11.6-14.6); RBC Distribution Width SD 51.1 fl (35.1-43.9); Red Blood Count 3.24 M/mm3 (4.6-6.2); White Blood Count 6.2 K/mm3 (4.4-11.0)
[2023-04-20] MEDS: Senna/Docusate Sodium 1 Tablet 2 TABLET PO (08:54)
[2023-04-20] MEDS: Acetaminophen 500 MG Tablet 1000 MG PO (08:54)
[2023-04-20] MEDS: APIXABAN 2.5 MG TABLET (WCH) PO (08:55)
[2023-04-20] MEDS: dilTIAZem CD 120 MG Capsule PO (08:55)
[2023-04-20] MEDS: Potassium Chloride Oral Tablet 20 MEQ PO (08:55)
[2023-04-20] MEDS: Isosorbide Mononitrate 60 MG Tablet PO (08:56)
[2023-04-20] MEDS: Calcium Carb/Vitamin D 1 TABLET Tablet PO (08:56)
[2023-04-20 08:57] VITALS: BP 153/80; PULSE 88; RESP 18; TEMP 36.8; O2SAT 95
--- NOTE | 2023-04-20 11:18 | CASEMGMT ---
TC to [facility] Retail pharmacy, spoke with divina Keller cost is $0 for the eliquis.
--- NOTE | 2023-04-20 13:28 | PCM.PN.ORT ---
Subjective Subjective Patient was seen and examined today. He states that he is doing well. His pain is well controlled. He has been working with PT and he states he is ready to go home. He denies any chest pain, shortness of breath, nausea, vomiting, fevers or chills. Objective Data Objective Data Vital Signs: Vital Signs Temp Pulse Resp BP Pulse Ox O2 Del Method O2 Flow Rate 98.3 F 88 18 153/80 H 95 Room Air 4 04/20/23 08:57 04/20/23 08:57 04/20/23 08:57 04/20/23 08:57 04/20/23 08:57 04/20/23 08:58 04/18/23 12:49 Oxygen Flow Rate (L/min) 4 Oxygen Delivery Method Room Air Weight: 259 lb 3.2 oz Body Mass Index (BMI) 37.1 Intake & Output: Intake and Output for Last 24 Hours 04/18/23 04/19/23 04/20/23 23:59 23:59 23:59 Intake Total 4332 / 4332 1154.75 / 1154.75 Output Total 1375 / 1375 1650 / 1650 800 / 800 Balance 2957 / 2957 -495.25 / -495.25 -800 / -800 Lab / Micro Data 04/20/23 05:30 04/19/23 05:30 Labs: Laboratory Results - last 24 hr 04/20/23 05:30: WBC 6.2, RBC 3.24 L, Hgb 10.6 L, Hct 32.8 L, MCV 101.2 H, MCH 32.7 H, MCHC 32.3, RDW Std Deviation 51.1 H, RDW Coeff of Dc 13.6, Plt Count 174, MPV 9.8 Micro: Microbiology 04/12/23 08:34 Swab (Method) Nasal Screen MRSA/MSSA - Final Physical Exam Const alert, oriented x3 and no apparent distress General Appearance: cooperative Extremity Extremity Narrative: Upon inspection of the right knee there are 2 dressings that are clean, dry and intact. Patient does have MISAEL hose on. He is neurovascularly intact. Negative Homans. Soft compartments. Assessment & Plan Assessment/Plan (1) S/P total knee arthroplasty: QUALIFIERS: Laterality: right Qualified Code(s): Z96.651 - Presence of right artificial knee joint PLAN: Plan Postop day #2, Right total knee arthroplasty. PT/OT going well, weightbearing as tolerated, encourage knee range of motion DVT prophylaxis Eliquis 2.5 mg twice daily, thigh-high Sheela Baca DC home today, outpatient physical therapy. Patient is aware he has a PT appointment tomorrow, 04/21/2023. Follow-up in the office 2 weeks and he was given his follow up date. The patient and his are aware they should call the office with any concerns or questions.
--- NOTE | 2023-04-21 08:37 | DS.PCM_ITS ---
Providers Date of Admission: 04/18/23 Primary Care Physician: Dr. Price Herndon MD Reason For Visit: RT TOTAL KNEE W KADEN Diagnosis Discharge Diagnosis (1) S/P total knee arthroplasty: Status: Acute Code(s): Z96.659 - Presence of unspecified artificial knee joint Qualifiers: Laterality: right Qualified Code(s): Z96.651 - Presence of right artificial knee joint Plan Postop day #1 right total knee arthroplasty. PT OT weightbearing as tolerated encourage knee range of motion DVT prophylaxis Eliquis 2.5 mg twice daily thigh-high MISAEL hose SCDs DC planning home tomorrow outpatient physical therapy Follow-up in the office 2 weeks Medications at Discharge Home Medications coenzyme Q10 100 mg capsule 100 mg PO DAILY SUPPLEMENT 05/17/17 glucosamine HCl 1,500 mg tablet 1,500 mg PO QDAY SUPPLEMENT 01/18/18 isosorbide mononitrate 60 mg tablet,extended release 24 hr 60 mg PO DAILY HEART #90 tabs 01/18/18 calcium carbonate 500 mg-vitamin D3 10 mcg (400 unit) tablet 1 tab PO DAILY SUPPLEMENT 01/19/22 doxazosin 4 mg tablet 4 mg PO QHS BP #90 tabs 09/05/22 multivitamin 1 tab PO DAILY SUPPLEMENT 09/05/22 pravastatin 40 mg tablet 40 mg PO QHS CHOLESTEROL #90 tabs 09/05/22 nitroglycerin 0.4 mg sublingual tablet 0.4 mg sublingual Q5M PRN cp #20 tabs 02/23/23 potassium chloride 20 mEq tablet,extended release(part/cryst) 20 meq PO DAILY SUPPLEMENT #90 tabs 02/23/23 furosemide 20 mg tablet (Lasix) 40 mg PO PRN EDEMA 03/23/23 diltiazem HCl 120 mg capsule,extended release 24 hr 120 mg PO DAILY BP #90 caps 03/30/23 acetaminophen 500 mg tablet 1,000 mg (2 x 500 mg) PO Q6H PRN #100 tabs 04/19/23 apixaban 2.5 mg tablet (Eliquis) 2.5 mg PO BID #30 tabs 04/19/23 oxycodone 5 mg tablet 5 - 10 mg (1 - 2 x 5 mg) PO Q4H PRN pain 7 days #60 tabs 04/19/23 Hospital Course Operations total knee replacement Summary of Care Provided Hospital Course: Who has long history of degenerative joint disease to the knee who has failed conservative treatment and wished to undergo elective total knee arthroplasty. Patient underwent the aformentioned procedure on the admission date without any intraoperative complications. Patient did receive pre-and postoperative antibiotics which were discontinued within 23 hours postoperatively. Patient did receive spinal anesthesia as well as an adductor canal block postoperatively. pain was controlled with IV and transition to p.o. pain medication Patient will be discharged home with oxycodone and will continue Tylenol as well. Patient had minimal intraoperative blood loss and 2gm tranexam ic acid was administered there was no need for postoperative blood transfusion Patients vital signs remained stable. Patient was started on both mechanical and chemical DVT per prophylaxis postoperatively in the form of SCDs MISAEL hose and Eliquis 2.5 mg twice daily for which she will continue for 2 additional weeks post hospital discharge. thigh high misael hose placed over top of the meplix silver dressing. This should be removed 72 hrs post operatively and showering begun daily at that time with warm water and antibacterial soap. not to submerge for 3 weeks. To change dressing daily after first dressing change. Patient will follow-up in the office in 2 weeks. No intrahospital complication s. Weight / BMI Weight Weight: 259 lb 3.2 oz Body Mass Index (BMI) 37.1 ABG / Lab / Microbiology Data 04/20/23 05:30 04/19/23 05:30 Microbiology: Microbiology 04/12/23 08:34 Swab (Method) Nasal Screen MRSA/MSSA - Final D/C Instructions Discharge Diet: No restrictions Call your doctor if you observe: Shortness of breath and Chest pain Additional Dressing/Incision Instructions: Ice and elevate lower extremities 2 weeks while not ambulating. Ambulation is encouraged. Weight bearing as tolerated. Use assistive devise for stability. Encourage FULL knee extension and flexion 1 time EVERY time you get up and down and MULTIPLE times per day. No showering 72 hours after surgery. Begin showering postop day #3. Remove the dressing prior to shower and gently wash with warm water and antibacterial soap then pat dry and place abdominal pad (or plain gauze) and MISAEL hose over top. This is to be done daily. Do not submerge for 3 weeks. If not showering daily after the initial 72 hours then you must clean incision and change dressing daily. Do not allow animals near the incision area. Keep clean. Follow anti-coagulation recommendations as prescribed. Do not take any NSAIDs while on blood thinner. Do not take any additional narcotic pain medication other than what was prescribed on your surgery day without discussing with physician. Narcotic medication can be addictive. Do not drink alcohol while taking daya cotics. Supplement narcotic prescription with acetaminophen 1000 mg 4 times a day. Start physical therapy. If you are not currently scheduled for physical therapy or you are unsure of appointment time please call office MP to arrange. Call Dr. Quinn with any concerns. Please Follow Up With: Burton Quinn DO When: 2 weeks Meaningful Use Info Meaningful Use Diagnoses (Choose all that apply): None applicable Discharge Plan Admission Admit Date/Time: 04/18/23 06:03 Primary Reason for Your Visit: Right total knee arthroplasty Attending Provider: Burton Quinn Primary Care Provider: Price Herndon Chi Discharge Orders/Prescriptions Prescriptions: New acetaminophen [acetaminophen] 500 mg tablet 1,000 mg PO Q6H PRN Qty: 100 0RF Eliquis 2.5 mg tablet 2.5 mg PO BID Qty: 30 0RF oxycodone 5 mg tablet 5 - 10 mg PO Q4H PRN (Reason: pain) 7 Days Qty: 60 0RF Continued isosorbide mononitrate 60 mg tablet extended release 24 hr 60 mg PO DAILY Qty: 90 3RF glucosamine HCl 1,500 mg tablet 1,500 mg PO QDAY calcium carbonate-vitamin D3 500 mg-10 mcg (400 unit) tablet 1 tab PO DAILY potassium chloride 20 mEq tablet,ER particles/crystals 20 meq PO DAILY Qty: 90 4RF nitroglycerin 0.4 mg tablet, sublingual 0.4 mg SUBLINGUAL Q5M PRN (Reason: cp) Qty: 20 1RF furosemide [Lasix] 20 mg tablet 40 mg PO PRN coenzyme Q10 100 MG capsule 100 mg PO DAILY multivitamin Tablet 1 tab PO DAILY doxazosin 4 mg tablet 4 mg PO QHS Qty: 90 3RF pravastatin 40 mg tablet 40 mg PO QHS Qty: 90 3RF diltiazem HCl 120 mg capsule,extended release 24hr 120 mg PO DAILY Qty: 90 3RF Referrals / Follow Up: Price Herndon Chi, MD [Primary Care Provider] - Disposition Disposition (needs filled in before D/C Order can be placed): Home, Self Care
== END 2023-04-20 14:10 | disposition home or self-care (01) | DRG 470 ==
LOC: ACINP 06:04 → MS3 10:45
PROVIDERS: Anesthesiology; Admitting Provider Orthopaedic Surgery; PCP Family Medicine Geriatric Medicine; Referring Provider Orthopaedic Surgery; Visit Provider Orthopaedic Surgery
PROC: 0SRC0JZ Replacement of Right Knee Joint with Synthetic Substitute, Open Approach (ICD-10-PCS; CPT 27447; principal; 2023-04-18 07:45)
DX: M17.11 Unilateral primary osteoarthritis, right knee (principal); E78.00 Pure hypercholesterolemia, unspecified; M25.561 Pain in right knee; I25.10 Atherosclerotic heart disease of native coronary artery without angina pectoris; I10 Essential (primary) hypertension; G89.29 Other chronic pain
CPT/HCPCS: 36415; 73560; 80048; 82565; 82962; 82985; 83036; 83735; 85027; 86850; 86900; 86901; 87081; 88305; 88311; 94668; 97110; 97116; 97162; 97166; 97530; 97535; C1776; J7040; J7120; J2405; J3475; J3490

== ENCOUNTER → 2023-04-27 | Outpatient (CLI) | payer MEDICARE, BC, SELFPAY ==
[2023-04-27 13:15] LABS: Absolute Lymphocyte Count 0.63 X10^3/uL (0.83-4.51); Basophil# 0.03 X10^3/uL; Basophil% 0.5 % (0-1); Eosinophil# 0.09 X10^3/uL; Eosinophils% 1.4 % (0-5); Hematocrit 30.1 % (40-54); Hemoglobin 9.9 g/dL (13.0-16.5); Lymphocyte # 0.63 X10^3/ul (0.83-4.51); Lymphocyte % 10.1 % (19-41); Mean Corp Hgb Conc 32.9 g/dL (32-36); Mean Corpuscular Volume 100.3 fL (80-94); Mean Platelet Vol. 8.9 fl (6.2-12.0); Monocyte# 0.47 X10^3/uL; Monocyte% 7.5 % (0-10); NRBC Flagged by Analyzer 0 % (0-5); Neutrophil # 5.03 X10^3/uL (2.7-7.7); Neutrophil % 80.3 % (47-70); Platelet Count 347 K/mm3 (150-450); RBC Distribution Width CV 13.7 % (11.6-14.6); RBC Distribution Width SD 50.4 fl (35.1-43.9); White Blood Count 6.3 K/mm3 (4.4-11.0)
== END | disposition home or self-care (01) ==
LOC: POLAB3 11:38
PROVIDERS: PCP Family Medicine Geriatric Medicine; Visit Provider Family Medicine Geriatric Medicine
DX: D64.9 Anemia, unspecified (principal)
CPT/HCPCS: 36415; 85025

== ENCOUNTER → 2023-05-01 | Outpatient (CLI) | payer MEDICARE, BC, SELFPAY ==
--- NOTE | 2023-05-01 12:42 | VDLE_ITS ---
Reason For Study: RLE SWELLING RIGHT LEFT GSV is normal. CFV is patent and compressible. CFV is compressible, spontaneous, phasic, competent and demonstrates normal augmentation. FV is compressible, spontaneous, phasic, competent and demonstrates normal augmentation. POP V is compressible, spontaneous, phasic, competent and demonstrates normal augmentation. T/P Trunk is compressible. PTV is compressible. RT PerV is compressible. Procedure This is a venous duplex using B-mode, color flow and spectral Doppler. Exam performed in department. The study was technically difficult. A preliminary report was called and/or faxed to Dr. Quinn @ [phone] @ 1:15 pm. VL/Venous Duplex US, Unilateral Interpretation Summary Deep veins of the right lower extremity are patent and compressible segmentally . There is no evidence of right lower extremity deep vein thrombosis. The right great sapheno us vein appears patent and compressible segmentally. Ordering Physician: Burton Quinn Referring Physician: Price Herndon Chi Performed By: Katerin Miller, RDCS, RVT
== END | disposition home or self-care (01) ==
LOC: CVS 12:41
PROVIDERS: PCP Family Medicine Geriatric Medicine; Referring Provider Orthopaedic Surgery; Visit Provider Orthopaedic Surgery
DX: I25.10 Atherosclerotic heart disease of native coronary artery without angina pectoris (principal); M79.669 Pain in unspecified lower leg; M79.89 Other specified soft tissue disorders
CPT/HCPCS: 93971

== ENCOUNTER → 2023-05-17 | Outpatient (CLI) | payer MEDICARE, BC, SELFPAY ==
[2023-05-17 12:18] LABS: Absolute Lymphocyte Count 1.01 X10^3/uL (0.83-4.51); Absolute Neutrophil Count 3.2 X10^3/uL (2.0-7.7); Basophil# 0.04 X10^3/uL; Basophil% 0.8 % (0-1); Eosinophil# 0.14 X10^3/uL; Eosinophils% 2.9 % (0-5); Hematocrit 33.4 % (40-54); Hemoglobin 10.7 g/dL (13.0-16.5); Lymphocyte # 1.01 X10^3/ul (0.83-4.51); Lymphocyte % 21.1 % (19-41); Mean Corpuscular Hgb 32.4 pg (27.0-32.0); Mean Corpuscular Volume 101.2 fL (80-94); Mean Platelet Vol. 8.7 fl (6.2-12.0); Monocyte# 0.43 X10^3/uL; NRBC Flagged by Analyzer 0 % (0-5); Neutrophil # 3.15 X10^3/uL (2.7-7.7); Platelet Count 315 K/mm3 (150-450); RBC Distribution Width CV 13.6 % (11.6-14.6); White Blood Count 4.8 K/mm3 (4.4-11.0)
== END | disposition home or self-care (01) ==
LOC: LAB.FUTURE 11:32
PROVIDERS: PCP Family Medicine Geriatric Medicine; Visit Provider Family Medicine Geriatric Medicine
DX: D64.9 Anemia, unspecified (principal)
CPT/HCPCS: 36415; 85025

== ENCOUNTER → 2023-06-05 | Outpatient (CLI) | payer MEDICARE, BC, SELFPAY ==
[2023-06-05 10:45] LABS: Absolute Lymphocyte Count 1.04 X10^3/uL (0.83-4.51); Absolute Neutrophil Count 2.8 X10^3/uL (2.0-7.7); Basophil# 0.03 X10^3/uL; Basophil% 0.7 % (0-1); Eosinophil# 0.13 X10^3/uL; Hematocrit 35.5 % (40-54); Hemoglobin 11.2 g/dL (13.0-16.5); Lymphocyte # 1.04 X10^3/ul (0.83-4.51); Lymphocyte % 23.7 % (19-41); Mean Corp Hgb Conc 31.5 g/dL (32-36); Mean Corpuscular Hgb 31.7 pg (27.0-32.0); Mean Corpuscular Volume 100.6 fL (80-94); Mean Platelet Vol. 9.5 fl (6.2-12.0); Monocyte# 0.39 X10^3/uL; Monocyte% 8.9 % (0-10); NRBC Flagged by Analyzer 0 % (0-5); Neutrophil # 2.79 X10^3/uL (2.7-7.7); Neutrophil % 63.5 % (47-70); Platelet Count 238 K/mm3 (150-450); RBC Distribution Width CV 13.8 % (11.6-14.6); RBC Distribution Width SD 50.8 fl (35.1-43.9); Red Blood Count 3.53 M/mm3 (4.6-6.2); White Blood Count 4.4 K/mm3 (4.4-11.0)
[2023-06-05 10:55] LABS: Vitamin D,25 Hydroxy 51.1 ng/mL
[2023-06-05 11:20] LABS: AST(SGOT) 17 U/L (15-37); Alanine Aminotransfer ALT/SGPT 25 U/L (16-61); Albumin, Serum 3.3 g/dL (3.2-5.0); Alkaline Phosphatase 93 U/L (45-117); Anion Gap 7 (5-15); BUN 16 mg/dL (7-18); BUN/Creat Ratio 17.6 RATIO (10-20); Calcium,Total 8.9 mg/dL (8.5-10.1); Chloride 105 mmol/L (98-107); Creatinine, Serum 0.91 mg/dL (0.70-1.30); EST Glomerular Filtration Rate 85 mL/min (>60); Est Glom Filt Rate - Afr Amer 103 mL/min (>60); Globulin 3.2 g/dL (2.2-4.2); Glucose 118 mg/dL (74-106); Potassium 4.3 mmol/L (3.5-5.1); Protein, Total 6.5 g/dL (6.4-8.2); Sodium Level 137 mmol/L (136-145); Thyroid Stim Hormone (TSH) 1.72 uIU/mL (0.358-3.74)
== END | disposition home or self-care (01) ==
LOC: POLAB3 09:40
PROVIDERS: PCP Family Medicine Geriatric Medicine; Visit Provider Family Medicine Geriatric Medicine
DX: I10 Essential (primary) hypertension (principal); E55.9 Vitamin D deficiency, unspecified
CPT/HCPCS: 36415; 80053; 82306; 84443; 85025

== ENCOUNTER 2023-06-16 09:30 | Outpatient (RCR) | payer MEDICARE, BC, SELFPAY ==
--- NOTE | 2023-04-27 17:37 | HP.PTEVAL ---
Patient's Visit Information Visit Information Visit Information: ANKIT RIVERA is a 77 year old M referred to Physical Therapy by Dr. Burton Quinn DO with a diagnosis of s/p R TKA 04/18/23. Date of Evaluation: 04/27/23 Physical Therapist: Itz Napier, SONALT, OCS, CSCS Visit Plan Frequency: 3x /Week Duration: 4-6 Weeks Plan: 3x/week for 4-6 weeks for 1. patellar mobs and ROM R knee VASO for swelling with ice strength R knee and hip work to I gym program surjit snrichiekers at d/c gait and stair training. Subjective Subjective: R TKA 04/18/23. Pain in the last week was not bad 4/10 at times. Could not stand prior to surgery and it would lock up. No falls. Using wh walker to get around. Knew he needed a TKA for 20 yrs. No AD prior to surgery. HEP : hurts like hell trying to bend it so he avoids it. Sleep is not a problem. Lives with in one story and 2 to enter, no railing, uses walker. They are no problem. Basic ADLS, dresses OK except compression garment. Bathroom I, shower walk in is easy with chair whcih he has. Hobbies: metal or wood blocker, wants to get back out to shop, lots of sitting. [place]. Regular exercise none. takes care of yard. Pain R knee: Pain Intensity (Out of 10): 2 Pain Intensity Range: 2 and 5 Objective Objective: Top of incision is red, is on antibiotic. All incision is dry , has pitting edema from knee down. R HS 25# and quad 30# with pain. girth 19 at knee, 25 6 above TUG is 24 seconds AROM -2 to 88 degrees R knee AROM hips ext 5 degrees B flexion to 90, ankle aROM WFL and strength at ankles 4+, hips 3+ abd, 3 ext, 3 flexion. Walking with wh walker with good R knee flexion Mod I. Traser chair and bed I. Takes a while to roll onto belly but I. Steps not tested today. Balance/Special Test Scores WOMAC Total Score: 67 WOMAC Percentatge: 30.2100 Goals Goal 1:: 0-110 arom to do steps normally. Goal Time Frame: 4-6 Weeks Goal 2:: Walk without AD I in community safely Goal Time Frame: 4-6 Weeks Goal 3:: steps reciprocally with one rail safe Goal Time Frame: 4-6 Weeks Goal 4:: I approp gym ex to continue strength Goal Time Frame: 4-6 Weeks Goal 5:: Pain 0-1/10 at all times Rehabilitation Potential Physical Therapy Diagnosis: R knee swelling stiffness, weakness after recent knee surgery. Rehabilitation Potential: Fair Anticipated Interventions Patient/Client Instruction: Educate patient on: Condition and Risk Factors For the Purpose of:: To decrease pain, To increase ROM, To improve nutrient delivery to tissue, To improve muscle performance and motor function, To increase tolerance to activity/condition/position and To improve ability of physical actions for home/community/work/leisure Therapeutic Exercise to Include: Strength training, Balance training, Flexibilty training, Gait and locomotor training, Passive ROM and Active ROM For the Purpose of:: To decrease pain, To increase ROM, To improve nutrient delivery to tissue, To improve muscle performance and motor function, To improve ability to perform ADL's, To increase tolerance to activity/condition/position, To improve ability of physical actions for home/community/work/leisure and To improve gait and locomotor functions Manual Therapy Techniques to Include: Massage, Mobilization, Passive ROM and Other For the Purpose of:: To decrease pain, To increase ROM, To improve muscle performance and motor function, To increase tolerance to activity/condition/position, To improve ability of physical actions for home/community/work/leisure and To improve gait and locomotor functions Cryotherapy (ice pack, ice massage): Yes For the Purpose of:: To decrease pain and To decrease swelling/inflammation Text: Thank you for the opportunity to evaluate your patient. For Medicare and Medicare HMO plans, please review the plan of care and approve it. It will need to be FAXED BACK to us at [phone] for Medicare purposes. For Medicare only, by signing this I certify the plan of care. Please let me know if there are questions or concerns regarding this plan of care. Physician Signature: Date:
--- NOTE | 2023-05-26 11:05 | HP.PTREVAL_ITS ---
Re-Evaluation Intro: Dr. Burton Quinn, DO, It has been my pleasure to treat ANKIT RIVERA over the last 13 visits for s/p R TKA 04/18/23. Please see the progress note below for an update on the physical therapy plan of care! Subjective Subjective: Better. Everything is better. Not much pain anymore. 1/10 intermittently. Does not do steps often. Front steps are rine. Uses cane to get around sometimes but not needed at home. Sleeping well. Getting shoes and st ockinet on I. Activities at home are pretty normal. Nto avoiding alot. HEP: walk alot, bending knee. Objective Objective/Function: Walks with and without cane safely and slowly but I. FGA today. steps reciprocal up and with one rail and descending preferring to use L. o-100 aROM pain at end range. Plan Plan Plan: 3x/week for 2 more weeks, please focus on: 1. patellar mobs and knee flexion ROM with OP 2. Teach full on gytm program LE, trunk, UE and work to I for membership Balance/Gait/Functional tests Balance/Special Test Scores WOMAC Total Score: 31 WOMAC Percentage: 67.7100 Goals Goals Goal 1:: 0-110 arom to do steps normally. Goal Time Frame: 4-6 Weeks Goal Progress: Progressing Goal 2:: Walk without AD I in community safely Goal Time Frame: 4-6 Weeks Goal Progress: Progressing Goal 3:: steps reciprocally with one rail safe Goal Time Frame: 4-6 Weeks Goal Progress: up, not down. Goal 4:: I approp gym ex to continue strength Goal Time Frame: 4-6 Weeks Goal Progress: Progressing Goal 5:: Pain 0-1/10 at all times Goal Progress: Goal Met Anticipated Interventions Anticipated Interventions Patient/Client Instruction: Educate patient on: Condition and Risk Factors For the Purpose of:: To decrease pain, To increase ROM, To improve nutrient delivery to tissue, To improve muscle performance and motor function, To increase tolerance to activity/condition/position and To improve ability of physical actions for home/community/work/leisure Therapeutic Exercise to Include: Strength training, Balance training, Flexibilty training, Gait and locomotor training, Passive ROM and Active ROM For the Purpose of:: To decrease pain, To increase ROM, To improve nutrient delivery to tissue, To improve muscle performance and motor function, To improve ability to perform ADL's, To increase tolerance to activity/condition/position, To improve ability of physical actions for home/community/work/leisure and To improve gait and locomotor functions Manual Therapy Techniques to Include: Massage, Mobilization, Passive ROM and Other For the Purpose of:: To decrease pain, To increase ROM, To improve muscle performance and motor function, To increase tolerance to activity/condit ion/position, To improve ability of physical actions for home/community/work/leisure and To improve gait and locomotor functions Cryotherapy (ice pack, ice massage): Yes For the Purpose of:: To decrease pain and To decrease swelling/inflammation Re-Evaluation Ending Re-evaluation ending: Please do not hesitate to contact me at [phone] by phone or if you have questions or concerns regarding this new plan of care! Sincerely, Itz Napier, DPT, OCS, CSCS
--- NOTE | 2023-06-16 10:23 | HP.PTDCSUM ---
Discharge Summary D/C summary: It has been my pleasure to treat ANKIT RIVERA referred by Dr. Burton Quinn DO, with the diagnosis of s/p R TKA 04/18/23 for a total of 19 visit(s). Discharge Date: 06/16/23 Please see the following information for a summary of their discharge status. Subjective Subjective: Still swollen but doing well overall. No pain. Activiities are normal at home. Using cane to get around away from home, does not need it at home. No giving out of knee. Just walking as exercises at home. Sleeping is good. Thinks can do gym exercises at home. Pain R knee: Pain Intensity (Out of 10): 0 R foot: Pain Intensity (Out of 10): 0 Overall Improvement % Improvement: 90 Objective Objective/Function: 18 girth at line and 22 inch 6 inch above 0-110 AROM with some pain. 51# R hs strength 66# quad strength R. Walking well with adn without the cane. Steps reciprocally with rail, R painful slightly and traansiently descending buyt able and funcitonally strong. Goals Goal 1:: 0-110 arom to do steps normally. Goal Progress: Goal Met Goal 2:: Walk without AD I in community safely Goal Progress: cane in community Goal 3:: steps reciprocally with one rail safe Goal Progress: Goal Met Goal 4:: I approp gym ex to continue strength Goal Progress: Goal Met Goal 5:: Pain 0-1/10 at all times Goal Progress: Goal Met Plan Plan: d/c to gym program and HEP D/C Information Discharge Comments: Will continue via hep and gym ex as [employer] member. See doctor in a week or two. d/c sentence: If there are questions or concerns regarding this patient's physical therapy, please feel free to call me at [phone]. Thank you for the referral of this patient. Sincerely, Itz Napier, DPT, OCS, CSCS Balance/Gait/Functional tests Balance/Special Test Scores Functional Gait Assessment Score: 24 % Disability: 20.0000 WOMAC Total Score: 25 WOMAC Percentage: 73.9600 Improvement % Improvement: 90
== END 2023-06-16 12:52 | disposition home or self-care (01) ==
LOC: PT 09:30
PROVIDERS: PCP Family Medicine Geriatric Medicine; Referring Provider Orthopaedic Surgery; Visit Provider Orthopaedic Surgery
DX: M17.0 Bilateral primary osteoarthritis of knee (principal); Z96.651 Presence of right artificial knee joint
CPT/HCPCS: 97016; 97110; 97140; 97161; 97164; 97530

== ENCOUNTER → 2024-01-29 | Outpatient (CLI) | payer MEDICARE, BC, SELFPAY ==
--- NOTE | 2024-01-29 10:58 | RAD_ITS ---
EXAM: XR LUMBOSACRAL SPINE, 4 OR 5 VIEWS CLINICAL INDICATION: LUMBAR DISC DISEASE TECHNIQUE: Frontal, lateral and bilateral oblique views of the lumbar spine. COMPARISON: No relevant prior studies available. FINDINGS: VERTEBRAE: Mild dextroscoliosis of the upper lumbar spine. No acute fracture or subluxation. Mild anterior listhesis of L4 on L5 related to degenerative change. DISC SPACES: Multilevel disc space narrowing. Prominent facet arthropathy involves L3-S1. GASTROINTESTINAL TRACT: Normal bowel gas pattern. RAD/L/S Spine Min 4 Views IMPRESSION: Moderate diffuse spondylosis. Electronically Signed: Salbador Read MD at 16:39 EDT ,
--- NOTE | 2024-01-29 11:05 | RAD_ITS ---
EXAM: XR CHEST, 2 VIEWS CLINICAL INDICATION: ACUTE HEART FAILURE TECHNIQUE: Frontal and lateral views of the chest. COMPARISON: No relevant prior studies available. FINDINGS: LUNGS AND PLEURAL SPACES: Normal. No consolidation or edema. No pneumothorax. No effusion. HEART: Normal heart size. MEDIASTINUM: No mediastinal or hilar mass. BONES/JOINTS: No acute abnormality. TUBES, LINES AND DEVICES: Loop recorder in place. RAD/Chest PA and Lateral IMPRESSION: No acute findings in the chest. Electronically Signed: Salbador Read MD at 16:50 EDT ,
[2024-01-29 12:45] LABS: Absolute Lymphocyte Count 1.17 X10^3/uL (0.83-4.51); Absolute Neutrophil Count 3.4 X10^3/uL (2.0-7.7); Basophil# 0.05 X10^3/uL; Basophil% 0.9 % (0-1); Eosinophil# 0.27 X10^3/uL; Hematocrit 39.9 % (40-54); Hemoglobin 13.1 g/dL (13.0-16.5); Lymphocyte # 1.17 X10^3/ul (0.83-4.51); Lymphocyte % 21.7 % (19-41); Mean Corp Hgb Conc 32.8 g/dL (32-36); Mean Corpuscular Hgb 32.1 pg (27.0-32.0); Mean Corpuscular Volume 97.8 fL (80-94); Monocyte# 0.47 X10^3/uL; Monocyte% 8.7 % (0-10); NRBC Flagged by Analyzer 0 % (0-5); Neutrophil # 3.41 X10^3/uL (2.7-7.7); Neutrophil % 63.5 % (47-70); Platelet Count 233 K/mm3 (150-450); RBC Distribution Width CV 14.4 % (11.6-14.6); RBC Distribution Width SD 51.9 fl (35.1-43.9); Red Blood Count 4.08 M/mm3 (4.6-6.2); White Blood Count 5.4 K/mm3 (4.4-11.0)
[2024-01-29 13:06] LABS: BNP,B-Type NATRIURETIC PEPTIDE 49.9 pg/mL (0-100)
[2024-01-29 13:12] LABS: Anion Gap 6 (5-15); BUN 20 mg/dL (7-18); BUN/Creat Ratio 20.4 RATIO (10-20); Calcium,Total 9.2 mg/dL (8.5-10.1); Chloride 105 mmol/L (98-107); Creatinine, Serum 0.98 mg/dL (0.70-1.30); EST Glomerular Filtration Rate 78 mL/min (>60); Est Glom Filt Rate - Afr Amer 95 mL/min (>60); Glucose 112 mg/dL (74-106); Potassium 4.1 mmol/L (3.5-5.1); Sodium Level 138 mmol/L (136-145)
== END | disposition home or self-care (01) ==
LOC: RAD 10:57
PROVIDERS: PCP Family Medicine Geriatric Medicine; Referring Provider Family Medicine Geriatric Medicine; Visit Provider Family Medicine Geriatric Medicine
DX: I50.31 Acute diastolic (congestive) heart failure (principal); M51.9 Unspecified thoracic, thoracolumbar and lumbosacral intervertebral disc disorder; M54.50 Low back pain, unspecified
CPT/HCPCS: 36415; 71046; 72110; 80048; 83880; 85025

== ENCOUNTER → 2024-02-08 | Outpatient (CLI) | payer MEDICARE, BC, SELFPAY ==
[2024-02-08 10:33] LABS: Absolute Lymphocyte Count 1.11 X10^3/uL (0.83-4.51); Absolute Neutrophil Count 4.7 X10^3/uL (2.0-7.7); Basophil# 0.02 X10^3/uL; Basophil% 0.3 % (0-1); Eosinophil# 0.23 X10^3/uL; Eosinophils% 3.4 % (0-5); Hematocrit 38.4 % (40-54); Hemoglobin 12.2 g/dL (13.0-16.5); Lymphocyte # 1.11 X10^3/ul (0.83-4.51); Lymphocyte % 16.4 % (19-41); Mean Corp Hgb Conc 31.8 g/dL (32-36); Mean Corpuscular Volume 97.5 fL (80-94); Mean Platelet Vol. 9.6 fl (6.2-12.0); Monocyte# 0.65 X10^3/uL; Monocyte% 9.6 % (0-10); NRBC Flagged by Analyzer 0 % (0-5); Neutrophil # 4.72 X10^3/uL (2.7-7.7); Platelet Count 225 K/mm3 (150-450); RBC Distribution Width CV 14.8 % (11.6-14.6); RBC Distribution Width SD 53.1 fl (35.1-43.9); Red Blood Count 3.94 M/mm3 (4.6-6.2); White Blood Count 6.8 K/mm3 (4.4-11.0)
[2024-02-08 11:24] LABS: ALB/GLOB Ratio 1.1 RATIO (0.9-2.4); AST(SGOT) 16 U/L (15-37); Alanine Aminotransfer ALT/SGPT 32 U/L (16-61); Albumin, Serum 3.5 g/dL (3.2-5.0); Alkaline Phosphatase 95 U/L (45-117); Anion Gap 2 (5-15); BUN 19 mg/dL (7-18); Calcium,Total 9.1 mg/dL (8.5-10.1); Chloride 104 mmol/L (98-107); Creatinine, Serum 0.91 mg/dL (0.70-1.30); EST Glomerular Filtration Rate 86 mL/min (>60); Est Glom Filt Rate - Afr Amer 104 mL/min (>60); Globulin 3.3 g/dL (2.2-4.2); Glucose 96 mg/dL (74-106); Potassium 4.3 mmol/L (3.5-5.1); Protein, Total 6.8 g/dL (6.4-8.2); Sodium Level 136 mmol/L (136-145); Thyroid Stim Hormone (TSH) 1.34 uIU/mL (0.358-3.74)
[2024-02-08 18:18] LABS: Vitamin D,25 Hydroxy 33.7 ng/mL
== END | disposition home or self-care (01) ==
LOC: LAB 09:44
PROVIDERS: PCP Family Medicine Geriatric Medicine; Visit Provider Family Medicine Geriatric Medicine
DX: I10 Essential (primary) hypertension (principal); E55.9 Vitamin D deficiency, unspecified
CPT/HCPCS: 36415; 80053; 82306; 84443; 85025

== ENCOUNTER → 2024-06-05 | Outpatient (CLI) | payer MEDICARE, BC, SELFPAY ==
[2024-06-05 16:56] LABS: Absolute Lymphocyte Count 1.29 X10^3/uL (0.83-4.51); Absolute Neutrophil Count 3.1 X10^3/uL (2.0-7.7); Basophil# 0.05 X10^3/uL; Eosinophil# 0.21 X10^3/uL; Eosinophils% 4.1 % (0-5); Hematocrit 38.7 % (40-54); Hemoglobin 12.6 g/dL (13.0-16.5); Lymphocyte # 1.29 X10^3/ul (0.83-4.51); Lymphocyte % 25.4 % (19-41); Mean Corp Hgb Conc 32.6 g/dL (32-36); Mean Corpuscular Hgb 31.7 pg (27.0-32.0); Mean Corpuscular Volume 97.5 fL (80-94); Mean Platelet Vol. 9.2 fl (6.2-12.0); Monocyte# 0.45 X10^3/uL; Monocyte% 8.9 % (0-10); NRBC Flagged by Analyzer 0 % (0-5); Neutrophil # 3.07 X10^3/uL (2.7-7.7); Neutrophil % 60.4 % (47-70); Platelet Count 198 K/mm3 (150-450); RBC Distribution Width CV 13.9 % (11.6-14.6); RBC Distribution Width SD 50.4 fl (35.1-43.9); Red Blood Count 3.97 M/mm3 (4.6-6.2); White Blood Count 5.1 K/mm3 (4.4-11.0)
[2024-06-05 17:14] LABS: BNP,B-Type NATRIURETIC PEPTIDE 72.5 pg/mL (0-100)
[2024-06-05 17:20] LABS: AST(SGOT) 23 U/L (15-37); Alanine Aminotransfer ALT/SGPT 33 U/L (16-61); Albumin, Serum 3.4 g/dL (3.2-5.0); Alkaline Phosphatase 93 U/L (45-117); Anion Gap 3 (5-15); BUN 17 mg/dL (7-18); BUN/Creat Ratio 17.5 RATIO (10-20); Calcium,Total 9.1 mg/dL (8.5-10.1); Chloride 106 mmol/L (98-107); Creatinine, Serum 0.97 mg/dL (0.70-1.30); EST Glomerular Filtration Rate 79 mL/min (>60); Est Glom Filt Rate - Afr Amer 95 mL/min (>60); Globulin 3.3 g/dL (2.2-4.2); Glucose 105 mg/dL (74-106); Potassium 4.5 mmol/L (3.5-5.1); Protein, Total 6.7 g/dL (6.4-8.2); Sodium Level 137 mmol/L (136-145)
== END | disposition home or self-care (01) ==
LOC: POLAB3 16:43
PROVIDERS: PCP Family Medicine Geriatric Medicine; Visit Provider Family Medicine Geriatric Medicine
DX: I11.0 Hypertensive heart disease with heart failure (principal); I50.31 Acute diastolic (congestive) heart failure; N39.0 Urinary tract infection, site not specified
CPT/HCPCS: 36415; 80053; 83880; 85025; 87086; 87088

== ENCOUNTER → 2024-06-06 | Outpatient (CLI) | payer MEDICARE, BC, SELFPAY ==
--- NOTE | 2024-06-06 12:52 | VDLE_ITS ---
Reason For Study: Bilateral leg swelling RIGHT LEFT GSV is normal. GSV is normal. CFV is compressible, spontaneous, phasic, CFV is compressible, spontaneous, phasic, competent and demonstrates normal competent, and demonstrates normal augmentation. augmentation. FV is compressible, spontaneous, phasic, FV is compressible, spontaneous, phasic, competent and demonstrates normal competent and demonstrates normal augmentation. augmentation. POP V is compressible, spontaneous, phasic, POP V is compressible, spontaneous, phasic, competent and demonstrates normal competent and demonstrates normal augmentation. augmentation. T/P Trunk is compressible. T/P Trunk is compressible. PTV is compressible. PTV is compressible. RT PerV is compressible. LT PerV is compressible. Procedure This is a venous duplex using B-mode, color flow and spectral Doppler. Exam performed in department. Technically difficult to visualize right calf veins due to edema. A preliminary report was called and/or faxed to Dr. Herndon. VL/Venous Duplex US - Dl Extrem Interpretation Summary Deep veins of the lower extremities are bilaterally patent and compressible seg mentally. There is no evidence of deep vein thrombosis on either side. Valvular competence appears in tact within the proximal deep venous systems bilaterally. The great saphenous veins appear bila terally patent and compressible segmentally. Deep veins of the right calf were difficult to visual ize due to edema. Ordering Physician: Price Herndon Chi Referring Physician: Price Herndon Chi Performed By: Daysi Mccullough RVT
== END | disposition home or self-care (01) ==
LOC: CVS 12:51
PROVIDERS: PCP Family Medicine Geriatric Medicine; Referring Provider Family Medicine Geriatric Medicine; Visit Provider Family Medicine Geriatric Medicine
DX: R22.43 Localized swelling, mass and lump, lower limb, bilateral (principal); I77.9 Disorder of arteries and arterioles, unspecified
CPT/HCPCS: 93970

== ENCOUNTER → 2024-06-12 | Outpatient (CLI) | payer MEDICARE, BC, SELFPAY ==
--- NOTE | 2024-06-12 12:08 | RAD_ITS ---
INDICATION: SPONDYLOSIS EXAMINATION/TECHNIQUE: X-RAY - XR Hips Bilateral with Pelvis when performed; Min 5 Views COMPARISON: Prior study dated: 04/12/2019 CT FINDINGS: PELVIC BONES: No displaced fracture, destructive or sclerotic lesions. Note that overlapping bowel shadows may however obscure fine detail. Sacroiliac joints are unremarkable. No widening of the pubic symphysis. HIPS: The hips are well aligned. Mild degenerative change bilaterally with joint space narrowing and subchondral sclerosis. Small marginal osteophytes present. No displaced fracture seen in this frontal view. SOFT TISSUES: No soft tissue swelling or gas. Vascular calcifications are seen. RAD/Hips B/L min 2 views w/ Pelvis IMPRESSION: No evidence of displaced pelvic or hip fracture. Mild degenerative changes of the hips. Electronically Signed: Amado Abdullahi MD at 22:15 EDT ,
--- NOTE | 2024-06-12 12:08 | RAD_ITS ---
STUDY: X-RAY - LUMBAR SPINE REASON FOR EXAM: Male, 78 years old. Pain. Evaluate for spondylolisthesis. TECHNIQUE: 5 view(s) of the lumbar spine were obtained. COMPARISON: None FINDINGS: Marked osteopenia. Normal lumbar lordosis. No substantial scoliosis. 6 mm of anterolisthesis of L4 and L5, unchanged from prior study. Diffuse moderate lower thoracic and lumbosacral facet sclerosis. Diffuse intervertebral disc space narrowing with osteophytes most marked in the lower thoracic spine and at L4-5 and to the greatest degree L5-S1. Vacuum phenomenon at L4-5 and L5-S1. Vascular calcification. RAD/L/S Spine Min 4 Views IMPRESSION: Stable osteopenia with diffuse moderate lower thoracic and lumbosacral spondylosis. Electronically Signed: Dylan Cotto MD at 12:58 EDT ,
[2024-06-12 12:46] LABS: Anion Gap 7 (5-15); BUN 16 mg/dL (7-18); BUN/Creat Ratio 16.8 RATIO (10-20); Calcium,Total 9.6 mg/dL (8.5-10.1); Chloride 104 mmol/L (98-107); Creatinine, Serum 0.95 mg/dL (0.70-1.30); EST Glomerular Filtration Rate 81 mL/min (>60); Est Glom Filt Rate - Afr Amer 98 mL/min (>60); Glucose 115 mg/dL (74-106); Potassium 4.2 mmol/L (3.5-5.1); Sodium Level 138 mmol/L (136-145)
== END | disposition home or self-care (01) ==
PROVIDERS: PCP Family Medicine Geriatric Medicine; Visit Provider Family Medicine Geriatric Medicine
DX: I10 Essential (primary) hypertension (principal); M47.816 Spondylosis without myelopathy or radiculopathy, lumbar region
CPT/HCPCS: 36415; 72110; 73521; 80048

== ENCOUNTER → 2024-06-14 | Outpatient (CLI) | payer MEDICARE, BC, SELFPAY ==
--- NOTE | 2024-06-14 09:47 | ART_ITS ---
Reason For Study: PAOD Procedure A bilateral lower extremity continuous wave Doppler with analog waveform analysis and ankle brachial indexes. Left Segmental Pressures Left brachial= 133mmHg. Left posterior tibial artery = >254mmHg. Left dorsalis pedis artery = 220mmHg. Left digit = 172 mmHg. Right Segmental Pressures Right brachial= 128mmHg. Right posterior tibial artery = >254mmHg. Right dorsalis pedis artery = >254mmHg. Right digit = 145 mmHg. Indices The right ankle brachial index by the posterior tibial artery is NC. The right ankle brachial index by the dorsalis pedis is NC. The right digital-brachial index is 1.09. The left ankle brachial index by the posterior tibial artery is NC. The left ankle brachial index by the dorsalis pedis is 1.65. The left digital-brachial index is 1.29. VL/Ankle Brachial Index Interpretation Summary Right YANETH not able to be ontained due to non-compressible vessels. TBI and Dopp ler/PVR waveforms of the right ankle normal at rest. Left YANETH 1.65, normal. TBI and Doppler/PVR waveforms of the left ankle normal a t rest. Ordering Physician: Price Herndon Chi Referring Physician: PRICE HERNDON CHI, MD Performed By: Haylee Cast RDCS/RVT
== END | disposition home or self-care (01) ==
LOC: CVS 09:46
PROVIDERS: PCP Family Medicine Geriatric Medicine; Referring Provider Family Medicine Geriatric Medicine; Visit Provider Family Medicine Geriatric Medicine
DX: R22.43 Localized swelling, mass and lump, lower limb, bilateral (principal); I73.9 Peripheral vascular disease, unspecified
CPT/HCPCS: 93922

== ENCOUNTER → 2024-06-24 | Outpatient (CLI) | payer MEDICARE, BC, SELFPAY ==
[2024-06-24 13:38] LABS: PSA,Total- Diagnostic 1.55 ng/mL (0.0-4.0)
== END | disposition home or self-care (01) ==
PROVIDERS: PCP Family Medicine Geriatric Medicine; Referring Provider Urology; Visit Provider Urology
DX: N40.0 Benign prostatic hyperplasia without lower urinary tract symptoms (principal)
CPT/HCPCS: 36415; 84153

== ENCOUNTER 2024-07-23 09:30 | Outpatient (RCR) | payer MEDICARE, BC, SELFPAY | END 2024-07-23 19:00 | disposition home or self-care (01) | LOC: PT 09:30 | PROVIDERS: PCP Family Medicine Geriatric Medicine; Referring Provider Family Medicine Geriatric Medicine; Visit Provider Family Medicine Geriatric Medicine | DX: M54.50 Low back pain, unspecified (principal) | CPT/HCPCS: 97110; 97162 ==

== ENCOUNTER → 2024-08-08 | Outpatient (CLI) | payer MEDICARE, BC, SELFPAY ==
[2024-08-08 09:21] LABS: Absolute Lymphocyte Count 1.35 X10^3/uL (0.83-4.51); Absolute Neutrophil Count 2.7 X10^3/uL (2.0-7.7); Basophil# 0.04 X10^3/uL; Basophil% 0.8 % (0-1); Eosinophil# 0.35 X10^3/uL; Eosinophils% 7.1 % (0-5); Hematocrit 40.7 % (40-54); Hemoglobin 13.3 g/dL (13.0-16.5); Lymphocyte # 1.35 X10^3/ul (0.83-4.51); Lymphocyte % 27.5 % (19-41); Mean Corp Hgb Conc 32.7 g/dL (32-36); Mean Corpuscular Volume 97.8 fL (80-94); Mean Platelet Vol. 9.3 fl (6.2-12.0); Monocyte# 0.49 X10^3/uL; NRBC Flagged by Analyzer 0 % (0-5); Neutrophil # 2.67 X10^3/uL (2.7-7.7); Neutrophil % 54.4 % (47-70); Platelet Count 211 K/mm3 (150-450); RBC Distribution Width CV 14.3 % (11.6-14.6); RBC Distribution Width SD 51.8 fl (35.1-43.9); Red Blood Count 4.16 M/mm3 (4.6-6.2); White Blood Count 4.9 K/mm3 (4.4-11.0)
[2024-08-08 09:49] LABS: Vitamin D,25 Hydroxy 30.5 ng/mL
[2024-08-08 10:17] LABS: AST(SGOT) 23 U/L (15-37); Alanine Aminotransfer ALT/SGPT 34 U/L (16-61); Albumin, Serum 3.5 g/dL (3.2-5.0); Alkaline Phosphatase 94 U/L (45-117); Anion Gap 6 (5-15); BUN 17 mg/dL (7-18); Calcium,Total 9.2 mg/dL (8.5-10.1); Chloride 105 mmol/L (98-107); EST Glomerular Filtration Rate 76 mL/min (>60); Est Glom Filt Rate - Afr Amer 92 mL/min (>60); Globulin 3.4 g/dL (2.2-4.2); Glucose 93 mg/dL (74-106); Potassium 4.1 mmol/L (3.5-5.1); Protein, Total 6.9 g/dL (6.4-8.2); Sodium Level 139 mmol/L (136-145)
== END | disposition home or self-care (01) ==
LOC: POLAB3 09:09
PROVIDERS: PCP Family Medicine Geriatric Medicine; Visit Provider Family Medicine Geriatric Medicine
DX: I10 Essential (primary) hypertension (principal); E55.9 Vitamin D deficiency, unspecified; R68.83 Chills (without fever)
CPT/HCPCS: 36415; 80053; 82306; 84443; 85025; 87631

== ENCOUNTER → 2025-01-23 | Outpatient (CLI) | payer MEDICARE, BC, SELFPAY ==
[2025-01-23 11:36] LABS: Absolute Lymphocyte Count 0.82 X10^3/uL (0.83-4.51); Absolute Neutrophil Count 3.5 X10^3/uL (2.0-7.7); Basophil# 0.03 X10^3/uL; Basophil% 0.6 % (0-1); Eosinophil# 0.05 X10^3/uL; Hematocrit 36.3 % (40-54); Hemoglobin 12.1 g/dL (13.0-16.5); Lymphocyte # 0.82 X10^3/ul (0.83-4.51); Lymphocyte % 17.1 % (19-41); Mean Corp Hgb Conc 33.3 g/dL (32-36); Mean Corpuscular Hgb 33.2 pg (27.0-32.0); Mean Corpuscular Volume 99.7 fL (80-94); Monocyte# 0.42 X10^3/uL; Monocyte% 8.8 % (0-10); NRBC Flagged by Analyzer 0 % (0-5); Neutrophil # 3.45 X10^3/uL (2.7-7.7); Neutrophil % 71.9 % (47-70); Platelet Count 196 K/mm3 (150-450); RBC Distribution Width CV 14.3 % (11.6-14.6); RBC Distribution Width SD 52.2 fl (35.1-43.9); Red Blood Count 3.64 M/mm3 (4.6-6.2); White Blood Count 4.8 K/mm3 (4.4-11.0)
[2025-01-23 13:58] LABS: ALB/GLOB Ratio -2.3 RATIO (0.9-2.4); AST(SGOT) 23 U/L (<=37); Alanine Aminotransfer ALT/SGPT 26 U/L (<=46); Albumin, Serum 2.9 g/dL (3.4-4.8); Alkaline Phosphatase 80 U/L (40-129); Anion Gap 11 (5-15); BUN 15 mg/dL (4-19); BUN/Creat Ratio 17.3 RATIO (10-20); Calcium,Total 8.5 mg/dL (7.6-11.0); Carbon Dioxide 23.4 mmol/L (21.0-32.0); Chloride 102 mmol/L (98-108); Creatinine, Serum 0.85 mg/dL (0.70-1.20); EST Glomerular Filtration Rate 87 (>60); Glucose 112 mg/dL (70-99); Potassium 4.2 mmol/L (3.3-5.1); Sodium Level 137 mmol/L (133-145); Thyroid Stim Hormone (TSH) 0.801 uIU/mL (0.300-4.200); Total Bilirubin 0.46 mg/dL (0.00-1.30); Vitamin D,25 Hydroxy 29.1 ng/mL (30-100)
[2025-01-23 14:09] LABS: Globulin 3.1 g/dL (2.2-4.2); Protein, Total 6.1 g/dL (5.9-8.4)
== END | disposition home or self-care (01) ==
LOC: LAB 11:07
PROVIDERS: PCP Family Medicine Geriatric Medicine; Referring Provider Family Medicine Geriatric Medicine; Visit Provider Family Medicine Geriatric Medicine
DX: I10 Essential (primary) hypertension (principal); E55.9 Vitamin D deficiency, unspecified
CPT/HCPCS: 36415; 80053; 82306; 84443; 85025

== ENCOUNTER 2025-02-20 14:00 | Outpatient (RCR) | payer MEDICARE, BC, SELFPAY ==
--- NOTE | 2025-01-27 13:12 | HP.PTEVAL ---
Patient's Visit Information Visit Information Visit Information: ANKIT RIVERA is a 79 year old M referred to Physical Therapy by Dr. Price Herndon MD with a diagnosis of LOW BACK PAIN AND FALLS. Date of Evaluation: 01/27/25 Physical Therapist: Bob Mcmahan, PT, Cert MDT, OCS Visit Plan Frequency: 2x /Week Duration: 4 Weeks Plan: PT INTERVENTIONS DLS ,BLE STRENGTHENING ,POSTURAL EX'S ,FUNCTIONAL STRENGTHENING AND BALANCE TRAINING Subjective Subjective: This 79 y/o male presents to physical therapy with low back pain and falls. Patient has h/o back pain many years . Patient seen pain management with epidural injections which did not help which was done [place]. Patient has been falling mechanical fall got foot on pavement dragging in [place] ~ 3 weeks ago. Symmetrical lumbar no radicular symptoms .X-rays showed 6 mm of anterolisthesis of L4 and L5,Diffuse moderate lower thoracic and lumbosacral facet sclerosis.Diffuse intervertebral disc space narrowing with osteophytes most marked in the lower thoracic spine and at L4-5 and to the greatest degree L5-S1. Patient has lumbar pain affects walking/standing < 2 mins. Symptoms better sitting and rest. No medication. Coughing/sneezing-. Bowel/bladder-. Denies paresthesia/tingling -. Patient sleeping okay. Denies dizziness/nausea/tinnitus . Patient goals to decrease pain. Patient condition affects QOL and function. SOCIAL: single VOCATION: RETIRED Pain Bilateral Back: Pain Intensity (Out of 10): 4 Pain Intensity Range: 9 Objective Objective: POSTURE: mod thoracic kyphosis GAIT : reciprocal pattern shuffles steps slow syeda mod thoracic kyphosis ,hips/knees flexed PALAPTION: tender LS LUMBAR ROM: flexion mod loss ,extension severe loss ,side glides mod loss FLEXABILITY: hamstrings mod tight MMT: ( peak force) quads right 26.7 ,left 25.9 ,hamstrings right 24.2 ,left 23.9 ,hip flexion right 21.8 ,left 20.2 Special Tests L/S Slump test left side: Negative L/S Slump test right side: Negative L/S Left Straight Leg Raise: Negative L/S Right Straight Leg Raise: Negative Balance/Special Test Scores Functional Gait Assessment Score: 15 % Disability: 50.0000 CATSIB Score (Max score 120 seconds): 65 Oswestry Low Back Score: 33 Goals Goal 1:: Patient to be I with HEP for back Goal Time Frame: 4-6 Weeks Goal 2:: Patient to improve CATSIBE by 5 points improve balance and risk of falls Goal Time Frame: 4-6 Weeks Goal 3:: Patient to improve functional gait assessment score by 5 points to decrease risk of falls Goal Time Frame: 4-6 Weeks Goal 4:: Patient to improve back oswestry score by 5 points to improve QOL and function Goal Time Frame: 4-6 Weeks Goal 5:: Patient to improve peak force quads/hams/hip by 5 # to improve QOL and function Goal Time Frame: 4-6 Weeks Rehabilitation Potential Physical Therapy Diagnosis: This patient has low back pain weakness in legs ,decrease ability to walk /stand< 2mins due to pain ,decrease balance CATSIBE and functional gait assessment. Thus recommend PT Rehabilitation Potential: Fair Anticipated Interventions Patient/Client Instruction: Educate patient on: Condition and Plan of Care For the Purpose of:: To decrease pain, To improve nutrient delivery to tissue, To increase oxygenation perfusion, To improve muscle performance and motor function, To increase tolerance to activity/condition/position, To improve ability of physical actions for home/community/work/leisure, To improve health of tissue, To decrease soft tissue restriction, To increase flexibility/ROM, To improve endurance, To reduce risk of recurrence and To improve tolerance to ADL's Therapeutic Exercise to Include: Strength training, Endurance training, Balance training, Body mechanics, Postural training, Flexibilty training and Dynamic Lumbar Stabilization For the Purpose of:: To decrease pain, To increase ROM, To improve muscle performance and motor function, To increase tolerance to activity/condition/position, To decrease level of supervision to perform tasks, To improve health of tissue, To decrease soft tissue restriction and To improve tolerance to ADL's TENS: Yes IF ES: Yes Cryotherapy (ice pack, ice massage): Yes Thermo therapy (hot pack): Yes Ultrasound (thermal/non thermal): Yes For the Purpose of:: To decrease pain, To increase ROM, To improve nutrient delivery to tissue, To increase oxygenation perfusion, To improve health of tissue and To decrease soft tissue restriction Text: Thank you for the opportunity to evaluate your patient. For Medicare and Medicare HMO plans, please review the plan of care and approve it. It will need to be FAXED BACK to us at [phone] for Medicare purposes. For Medicare only, by signing this I certify the plan of care. Please let me know if there are questions or concerns regarding this plan of care. Physician Signature: Date:
--- NOTE | 2025-02-20 14:30 | HP.PTDCSUM ---
Discharge Summary D/C summary: It has been my pleasure to treat ANKIT RIVERA referred by Dr. Price Herndon MD, with the diagnosis of LOW BACK PAIN AND FALLS for a total of 8 visit(s). Discharge Date: 02/20/25 Please see the following information for a summary of their discharge status. Subjective Subjective: Plan to have MRI brain Plan to see pain management Pain Bilateral Back: Pain Intensity (Out of 10): 3 Overall Improvement % Improvement: 10 Objective Objective/Function: POSTURE: mod thoracic kyphosis GAIT : reciprocal pattern shuffles steps slow syeda mod thoracic kyphosis ,hips/knees flexed PALAPTION: tender LS LUMBAR ROM: flexion mod loss ,extension severe loss ,side glides mod loss FLEXABILITY: hamstrings mod tight MMT: ( peak force) quads right 52.1 ,left 41.9 ,hamstrings right 30.5 ,left 32.9 ,hip flexion right 29.7 ,left 28.2 Goals Goal 1:: Patient to be I with HEP for back Goal Progress: Goal Met Goal 2:: Patient to improve CATSIBE by 5 points improve balance and risk of falls Goal Progress: Progressing Goal 3:: Patient to improve functional gait assessment score by 5 points to decrease risk of falls Goal Progress: Progressing Goal 4:: Patient to improve back oswestry score by 5 points to improve QOL and function Goal Progress: Progressing Goal 5:: Patient to improve peak force quads/hams/hip by 5 # to improve QOL and function Goal Progress: Progressing Plan Plan: D/C D/C Information Discharge Comments: HEP d/c sentence: If there are questions or concerns regarding this patient's physical therapy, please feel free to call me at [phone]. Thank you for the referral of this patient. Sincerely, Bob Mcmahan, PT, Cert MDT, OCS Balance/Gait/Functional tests Balance/Special Test Scores Functional Gait Assessment Score: 18 % Disability: 40.0000 CATSIB Score (Max score 120 seconds): 70 Oswestry Low Back Score: 30 Improvement % Improvement: 10
== END 2025-02-20 19:00 | disposition home or self-care (01) ==
LOC: PT 14:00
PROVIDERS: PCP Family Medicine Geriatric Medicine; Visit Provider Family Medicine Geriatric Medicine
DX: M54.50 Low back pain, unspecified (principal)
CPT/HCPCS: 97110; 97162; 97530

== ENCOUNTER → 2025-03-17 | Outpatient (CLI) | payer MEDICARE, BC, SELFPAY ==
--- NOTE | 2025-03-17 10:45 | MRI_ITS ---
PROCEDURE: BRAIN WITHOUT CONTRAST 03/17/2025 REASON FOR EXAM: MULTIPLE FALLS TECHNIQUE: BRAIN WITHOUT CONTRAST Multiplanar and multisequence images were obtained. COMPARISON: CT scan of the head on 02/20/2023. FINDINGS: Moderate diffuse cortical atrophy, commensurate with the patient's age. Mildly prominent ventricular system which is slightly out of proportion to the degree of cortical atrophy, possibly a mild form of normal pressure hydrocephalus. Confluent T2 hyperintense foci in the periventricular and subcortical white matter, probably a combination of transependymal CSF seepage and chronic ischemic white matter disease. Scattered chronic ischemic foci in the basal ganglia, thalami and infratentorial white matter. No other abnormality is identified in the basal ganglia and thalami. No other abnormality is identified in the brainstem. No other abnormality is identified in the cerebellum. There is no midline shift or brain herniation. There is no demonstrated extra-axial, intraparenchymal, or intraventricular hemorrhage. There are no abnormal intra-or extra-axial fluid collections. There are no areas of restricted diffusion to suggest acute ischemia. The cerebellopontine angles, internal auditory canals and the cisternal portions of the acoustical-facial nerves are unremarkable. Unremarkable exam of the skull. Normal soft tissue structures. Minimal chronic mucosal inflammatory changes of the ethmoid air cells. The remaining visualized paranasal sinuses and mastoid air cells are clear. The visualized portions of the orbits are unremarkable. MRI/Brain without Contrast IMPRESSION: Moderate diffuse cortical atrophy, commensurate with the patient's age. Mildly prominent ventricular system which is slightly out of proportion to the degree of cortical atrophy, possibly a mild form of normal pressure hydrocephalus. Confluent T2 hyperintense foci in the periventricular and subcortical white mat ter, probably a combination of transependymal CSF seepage and chronic ischemic white matter disease. Scattered chronic ischemic foci in the basal ganglia, thalami and infratentoria l white matter. No MRI evidence of an acute traumatic abnormality. Reading [facility]
== END | disposition home or self-care (01) ==
LOC: OPMRI 09:52
PROVIDERS: PCP Family Medicine Geriatric Medicine; Referring Provider Family Medicine Geriatric Medicine; Visit Provider Family Medicine Geriatric Medicine
DX: R29.6 Repeated falls (principal)
CPT/HCPCS: 70551

== ENCOUNTER → 2025-04-24 | Outpatient (CLI) | payer MEDICARE, BC, SELFPAY ==
--- NOTE | 2025-04-23 16:00 | LES_PTH ---
PATIENT: ANKIT RIVERA LOC: [facility] U#:[id number] AGE/SX: 79/M ROOM: RE04/24/[address]: Dr. Sushil Stafford MD : 1945 BED: DIS: 04/24/2025 SPEC #: [id number] RECD: 04/23/25 17:48 STATUS: BHANU RETabitha #: [id number] OLIVIA: 04/23/25 16:[address]: Sushil Stafford DEPT: SURGICAL PATHOLOGY RECD BY: Rodolfo Blackburn ENTERED: 04/24/25 11:38 SP TYPE: Lesion OTHR DR: Dr. Price Herndon MD Tissues: A - Skin of arm Procedures: Surgery Specimen Level IV HEADER OPERATION: Right elbow lesion excision and closure PRE-OP DIAGNOSIS: Right elbow lesion TISSUE SUBMITTED: A- Right elbow lesion MICROSCOPIC DIAGNOSIS A. Skin, elbow, right, excision: - Invasive squamous cell carcinoma, well-differentiated keratoacanthomatous type, surgical margins free - see note. - Tumor invades the reticular dermis to a depth of 1.5 mm (with respect to the adjacent normal epidermis). - No lymphovascular space or perineural invasion observed. Note: Focal dermal fibrosis with foreign body material, consistent with scar, is noted focally at the 6-9 o'clock surgical margin, that is distinctly separate from the squamous cell carcinoma. MICROSCOPIC DESCRIPTION Slides are reviewed. GROSS DESCRIPTION A. Received in formalin labeled with the patient's name and date of . Designated as right elbow lesion is a 3.7 x 2.9 cm agarwal skin ellipse excised to a depth ranging from 0.3 cm to 0.7 cm cm and with orientation as follows:Single suture: designated as 12:00 (proximal).Double suture: designated as 3:00.Triple suture: designated as 6:00. There is a 2.2 x 2.1 x 0.5 cm agarwal-pink to white, raised, firm and centrally soft mass with irregular borders, located the following distances from the margins:12:00: 0.9 cm 3:00: 0.4 cm 6:00: 1.0 cm9:00: 0.5 cmDeep: 0.2 cm Ink granado: 12:00 to 3:00: Green3:00 to 6:00: Yellow6:00 to 9:00: Orange9:00 to 12:00: BlueDeep: Black The specimen is serially sectioned from 12:00 to 6:00 revealing that the lesion grossly extends into the underlying soft tissue. The specimen is entirely submitted, sequentially, in 7 cassettes. [place] 04/24/2025 CPT:60941
== END | disposition home or self-care (01) ==
LOC: LABSPEC 11:33
PROVIDERS: PCP Family Medicine Geriatric Medicine; Referring Provider Surgery Plastic and Reconstructive Surgery; Visit Provider Surgery Plastic and Reconstructive Surgery
DX: C44.622 Squamous cell 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, including shoulder (principal)
CPT/HCPCS: 88305

== ENCOUNTER → 2025-06-12 | Outpatient (CLI) | payer MEDICARE, BC, SELFPAY ==
--- NOTE | 2025-06-12 09:32 | VDLE_ITS ---
Reason For Study Reason For Study: Right leg pain RIGHT LEFT GSV is normal. CFV is compressible, spontaneous, phasic, competent, Acute deep vein thrombosis is noted in the CFV, FV, and demonstrates normal augmentation. Pop V, and T/P Trunk. They are dilated and NONCOMPRESSIBLE. PTV is compressible. RT PerV is compressible. Procedure This is a venous duplex using B-mode, color flow and spectral Doppler. Exam performed in department. A preliminary report was called and/or faxed to Price Herndon MD. VL/Venous Duplex US, Unilateral Interpretation Summary Acute deep vein thrombosis is noted in the right common femoral vein. Acute cheryl p vein thrombosis is noted in the right femoral vein. Acute deep vein thrombosis is noted in the right popliteal vein. Acute deep vein thrombosis is noted in the right tibio-peroneal trunk. The right posterior tibial vein and peroneal ve in are patent and compressible. The right great saphenous vein appears patent and compressible segmentally. The left comm on femoral vein is patent and compressible . Ordering Physician: Price Herndon Chi Referring Physician: Price Herndon Chi Performed By: Maya Garvey RVT
== END | disposition home or self-care (01) ==
LOC: CVS 09:32
PROVIDERS: PCP Family Medicine Geriatric Medicine; Referring Provider Family Medicine Geriatric Medicine; Visit Provider Family Medicine Geriatric Medicine
DX: M79.604 Pain in right leg (principal)
CPT/HCPCS: 93971

== ENCOUNTER → 2025-07-24 | Outpatient (CLI) | payer MEDICARE, BC, SELFPAY ==
[2025-07-24 12:36] LABS: Hematocrit 38.2 % (40-54); Hemoglobin 12.6 g/dL (13.0-16.5); Immature Granulocytes Count 0.010 X10^3/uL (0.0-0.0); Mean Corp Hgb Conc 33.0 g/dL (32-36); Mean Corpuscular Volume 98.7 fL (80-94); Mean Platelet Vol. 9.5 fl (6.2-12.0); NRBC Flagged by Analyzer 0 % (0-5); Platelet Count 216 K/mm3 (150-450); RBC Distribution Width CV 13.9 % (11.6-14.6); RBC Distribution Width SD 51.1 fl (35.1-43.9); Red Blood Count 3.87 M/mm3 (4.6-6.2); White Blood Count 4.9 K/mm3 (4.4-11.0)
[2025-07-24 13:26] LABS: AST(SGOT) 23 U/L (<=37); Alanine Aminotransfer ALT/SGPT 22 U/L (<=46); Albumin, Serum 3.8 g/dL (3.4-4.8); Alkaline Phosphatase 72 U/L (40-129); Anion Gap 8 (5-15); BUN 15 mg/dL (4-19); BUN/Creat Ratio 17.0 RATIO (10-20); Calcium,Total 8.7 mg/dL (7.6-11.0); Carbon Dioxide 27.3 mmol/L (21.0-32.0); Chloride 103 mmol/L (98-108); Globulin 0.9 g/dL (2.2-4.2); Glucose 93 mg/dL (70-99); Potassium 4.4 mmol/L (3.3-5.1); Vitamin D,25 Hydroxy 27.3 ng/mL (30-100)
== END | disposition home or self-care (01) ==
LOC: LAB 11:09
PROVIDERS: PCP Family Medicine Geriatric Medicine; Referring Provider Family Medicine Geriatric Medicine; Visit Provider Family Medicine Geriatric Medicine
DX: I10 Essential (primary) hypertension (principal); E03.9 Hypothyroidism, unspecified; E55.9 Vitamin D deficiency, unspecified
CPT/HCPCS: 36415; 80053; 82306; 84443; 85025

== ENCOUNTER 2025-08-19 12:28 | Inpatient (IN) | payer MEDICARE, BC, SELFPAY ==
[2025-08-19] VITALS (9 sets, daily range): BP systolic 107–162; BP diastolic 61–93; PULSE 50–96; RESP 15–22; TEMP 36.6–36.9; O2SAT 94–98; BMI 40.6; BMI 40.3
--- NOTE | 2025-08-19 13:35 | EKG12_ITS ---
Test Reason : SOB Blood Pressure : */* mmHG Vent. Rate : 78 BPM Atrial Rate : 78 BPM P-R Int : 176 ms QRS Dur : 108 ms QT Int : 376 ms P-R-T Axes : 21 -41 57 degrees QTcB Int : 428 ms Sinus rhythm with frequent Premature ventricular complexes Left axis deviation Abnormal ECG Confirmed by STU BRAVO, SONJA ([id number]), deputy editor in chief JOHANNA SPARROW ([id number]) on 08/20/2025 9:19:40 AM Referred By: Confirmed By: SONJA PERAZA MD
--- NOTE | 2025-08-19 13:44 | RAD_ITS ---
PROCEDURE: CHEST PA AND LATERAL 08/19/2025 REASON FOR EXAM: CHEST PAIN TECHNIQUE: Procedure Code: RADCXR Modality: DX Procedure: CHEST PA AND LATERAL COMPARISON: Previous examination dated 01/29/2024 FINDINGS: Hardware: External cardiac monitoring device in place. Heart: Cardiomegaly Mediastinum: Tortuous atherosclerotic aorta Lungs: The lungs are clear. There is no focal consolidation seen. Mild atelectatic changes are present in the right lower lobe. There is eventration of the right hemidiaphragm. Blunted costophrenic angles noted bilaterally, stable. Bones: Multilevel spondylosis and disc disease. No displaced fracture. RAD/Chest PA and Lateral IMPRESSION: Stable appearance of the chest with low lung volumes. Blunted costophrenic ang les likely indicative of scarring bilaterally. Stable cardiomegaly. Reading Location: [facility]
[2025-08-19 13:59] LABS: Hematocrit 36.3 % (40-54); Hemoglobin 11.5 g/dL (13.0-16.5); Immature Granulocytes Count 0.010 X10^3/uL (0.0-0.0); Mean Corp Hgb Conc 31.7 g/dL (32-36); Mean Corpuscular Volume 101.7 fL (80-94); Mean Platelet Vol. 9.9 fl (6.2-12.0); NRBC Flagged by Analyzer 0 % (0-5); Platelet Count 198 K/mm3 (150-450); RBC Distribution Width CV 13.6 % (11.6-14.6); RBC Distribution Width SD 51.6 fl (35.1-43.9); Red Blood Count 3.57 M/mm3 (4.6-6.2); White Blood Count 5.3 K/mm3 (4.4-11.0)
--- NOTE | 2025-08-19 14:18 | ED.VIS.DYS ---
HPI History of Present Illness Chief Complaint: Shortness of Breath Detail of Chief Complaint: Shortness of breath today. Informant: patient and spouse/S.O. Onset/Context/Timing Onset: Today Context: gradual Timing: Intermittent Quality: Positive for Dyspnea on exertion Current Severity: Mild Maximum Severity: Mild Worsened by: Exertion Relieved by: Rest Associated Symptoms Negative for cough Chest Pain: Positive for None Narrative Narrative: 79-year-old male with history of hypertension about 2 months ago diagnosed with right leg DVT has been on Eliquis for 2 months. Says been taking it. Basically said shortness of breath today increasing leg swelling over the last several days. Denies any fever or chills. URI last week cough with green sputum resolved. Denies any chest pain or hemoptysis. Is on Lasix takes 10 mg a day. Denies any history of PR, stents or bypass. PE Risk Factors: Positive for Prior DVT or PE; Negative for Cancer, OCP + Smoking + > 35, Recent immobilization, Recent surgery or Recent travel Prior similar symptoms: No Recent Illness/Hospitalization: No PFSH PFSH Medical History Implantable loop recorder present Wears hearing aid Wears partial dentures Arthritis Back pain Gastric reflux Non-smoker Shortness of breath on exertion History of pain when walking History of edema History of echocardiogram History of stress test Hypertension Cardiology follow-up encounter Syncope Pure hypercholesterolemia Essential hypertension Hiatal hernia Asthma Atherosclerotic heart disease of [place] coronary artery without angina pectoris Long-term use of high-risk medication Acute respiratory failure with hypoxia Nonsustained ventricular tachycardia PVC (premature ventricular contraction) PAC (premature atrial contraction) Obesity (BMI 30-39.9) Home Medications Medication Instructions Recorded Last Taken Type coenzyme Q10 100 mg capsule 100 mg PO DAILY SUPPLEMENT 05/17/17 04/17/23 History isosorbide mononitrate 60 mg 60 mg PO DAILY HEART #90 tabs 01/18/18 04/18/23 05:30 Rx tablet,extended release 24 hr multivitamin 1 tab PO DAILY SUPPLEMENT 09/05/22 04/17/23 History acetaminophen 500 mg tablet 1,000 mg (2 x 500 mg) PO Q6H PRN 04/19/23 Unknown Rx #100 tabs doxazosin 4 mg tablet 4 mg PO QHS BP #90 tabs 11/27/24 Unknown Rx pravastatin 40 mg tablet 40 mg PO QHS CHOLESTEROL #90 tabs 11/27/24 Unknown Rx diltiazem HCl 120 mg 120 mg PO QDAY 03/20/25 Unknown History capsule,extended release 24 hr finasteride 5 mg tablet 5 mg PO QDAY 03/20/25 Unknown History furosemide 40 mg tablet 40 mg PO QDAY 03/20/25 Unknown History nitroglycerin 0.4 mg sublingual 0.4 mg sublingual Q5M PRN cp #25 03/20/25 Unknown Rx tablet tabs potassium chloride 20 mEq 20 meq PO DAILY #90 TABLETS 07/25/25 Unknown Rx tablet,extended release(part/cryst) apixaban 5 mg (74 tabs) tablets in 5 mg PO PER PKG DIR DVT in thigh, 08/19/25 Unknown History a dose pack ([employer] DVT-PE Treat med started by Dr. Herndon 30D Start) coenzyme Q10 75 mg capsule (Ultra 75 mg PO DAILY 08/19/25 Unknown History CoQ10) Allergy/AdvReac Type Severity Reaction Status Date / Time Beta-Blockers Allergy Severe Hives Verified 08/19/25 12:31 (Beta-Adrenergic Bloc ceftriaxone (From Rocephin) Allergy Severe Anaphylaxis Verified 08/19/25 12:31 ciprofloxacin (From Cipro) Allergy Severe Anaphylaxis Verified 08/19/25 12:31 hydralazine Allergy Severe Swelling- Verified 08/19/25 12:31 eyes, feet Iodinated Contrast Media Allergy Hives Verified 08/19/25 12:31 (CONTRASTS) iodine Allergy Hives Verified 08/19/25 12:31 NAHUM Inhibitors AdvReac Severe Swelling Verified 08/19/25 12:31 amlodipine AdvReac Severe Edema,legs Verified 08/19/25 12:31 clonidine AdvReac Severe RAsh Verified 08/19/25 12:31 valsartan (From Diovan) AdvReac Severe RAsh Verified 08/19/25 12:31 Family History Mother CAD (coronary artery disease) Myocardial infarction Father CAD (coronary artery disease) Myocardial infarction Brother CAD (coronary artery disease) Hx of CABG Brother CAD (coronary artery disease) Surgical History History of loop recorder Hx of colonoscopy History of cataract extraction History of cholecystectomy History of carpal tunnel surgery Social History Smoking Status: Never smoker alcohol intake: current details: occasional substance use type: does not use caffeine: Yes Type: coffee Number of servings: 3 ROS ROS ED ROS Narrative Shortness of breath. Primarily exertional. Denies chest pain. Denies orthopnea. Constitutional Constitutional ED: Denies chills or fever(s) Eyes Eyes: Denies blurry vision ENT ENT ED: Denies ear pain Cardiovascular Cardiovascular: Denies chest pain Respiratory/Chest Respiratory/Chest: Reports dyspnea and dyspnea on exertion; Denies cough Gastrointestinal Gastrointestinal: Denies abdominal pain, diarrhea, nausea or vomiting Genitourinary Genitourinary ED: Denies dysuria or hematuria Musculoskeletal Musculoskeletal: Reports back pain; Denies arthralgias Integumentary Denies abscess Neurologic Neurologic: Denies headache(s) Psychiatric Psychiatric: Denies anxiety Endocrine Endocrinology: Denies cold intolerance Hematologic/Lymphatic Hematologic/Lymphatic: Denies easy bleeding, easy bruising or lymphadenopathy Allergic/Immunologic Allergic/Immunologic ED: Denies mouth swelling, tongue swelling or urticaria EXAM Physical Exam Narrative Exam Narrative: 79-year-old male sitting in bed vital signs are stable afebrile. Pulse ox 96% on room air no hypoxia. No distress. at bedside. H EENT exam pupils round react light. Moist mucous membranes. Neck nontender no JVD. No lymphadenopathy. Lungs clear to auscultation bilaterally. Heart regular rhythm no murmur rate about 60. Chest wall ribs nontender. Abdomen soft nontender. Moving all 4 extremities. Neurovascular intact. 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 Normal dorsi plantarflexion. 2+ pitting edema both lower extremities. Chronic skin changes. Consistent with venous stasis. Calves are nontender without cords. Neurologically is awake alert. Answer questions following commands. Back he has some mild right SI tenderness. But there is no radiation to his legs. Both legs are neurovascularly intact. Const Vital Signs: 08/19/25 12:28 08/19/25 13:06 08/19/25 13:39 Temperature 98.2 F Temperature Source Oral Pulse Rate 50 L Respiratory Rate 16 Respiratory Effort Normal Non-Labored Respiratory Depth Normal Respiratory Pattern Normal Blood Pressure 150/93 H Blood Pressure Mean 112 Pulse Ox 96 Oxygen Delivery Method Room Air Room Air Room Air 08/19/25 14:28 Temperature Temperature Source Pulse Rate 96 Respiratory Rate 22 H Respiratory Effort Respiratory Depth Respiratory Pattern Blood Pressure 162/77 H Blood Pressure Mean 105 Pulse Ox 95 Oxygen Delivery Method Room Air MDM MDM MDM Narrative Medical decision making narrative: 79-year-old male short of breath increasing swelling in his lower extremities over the last week. Consistent with CHF versus other etiologies. Undergoing cardiac workup. Begin IV Lasix. Repeat exam no significant change. His most recent echocardiogram was 2 years ago with an EF of 55% at that time in 2022. He did have diastolic dysfunction. Discussed about the patient and his . I was going to increase his Lasix at home since he is not hypoxic. They said he is not doing well at home she says having trouble getting around the house. They are both requesting admission. I have the hospitalist on page. History & Record Review Discussion w/independent historian: Patient and Family Additional record(s) reviewed:: Prior outpatient record, Prior ED visit and Prior labs Lab Data Attestation: I reviewed the patient's lab results. Lab results narrative: CBC shows a white count of 5 H&H 11.5 and 36. Platelets 198. Chemistries show a gap at 9. Normal BUN and creatinine of 16 and 0.8. Glucose 102. Initial troponin 31. BNP 73. Chest x-ray chronic changes no acute process no effusions. No pneumonia. No significant signs of failure. Labs: Laboratory Results - last 24 hr 08/19/25 13:15 WBC 5.3 RBC 3.57 L Hgb 11.5 L Hct 36.3 L MCV 101.7 H MCH 32.2 H MCHC 31.7 L RDW Std Deviation 51.6 H RDW Coeff of Dc 13.6 Plt Count 198 MPV 9.9 Immature Gran % (Auto) 0.200 Neut % (Auto) 60.9 Lymph % (Auto) 22.9 [place] % (Auto) 10.5 H Eos % (Auto) 4.9 Baso % (Auto) 0.6 Absolute Neuts (auto) 3.3 Absolute Lymphs (auto) 1.22 Nucleated RBC % 0 Sodium 140 Potassium 4.3 Chloride 103 Carbon Dioxide 27.6 Anion Gap 9 BUN 16 Creatinine 0.84 Estim Creat Clear Calc 92.82 Est GFR (MDRD) Non-Af 88 BUN/Creatinine Ratio 19.0 Glucose 102 H Calcium 8.8 Troponin T High Sens 31 H NT pro BNP II 703 Radiography Chest X-Ray - ED: 2 View, Read by ED Physician, Read by Radiologist, Heart, Lungs, Mediastinum, Bony Structures, No Acute Disease and Chronic Changes Diagnostic Testing: Clinical Impression(s) from Imaging Studies Chest X-Ray 08/19/25 13:44 IMPRESSION: Stable appearance of the chest with low lung volumes. Blunted costophrenic angles likely indicative of scarring bilaterally. Stable cardiomegaly. Reading Location: [facility] Chest x-ray, 2 views, AP and lateral, interpreted by by myself and the radiologist shows chronic changes. No significant CHF no pleural effusion. No pneumonia. Rhythm Strip Rhythm Strip: Sinus Rhythm Rate: 78 Ectopy: PVC(s) EKG Initial EKG: Interpretation: Sinus Rhythm and No Acute Injury Pattern Comments: Normal sinus rhythm rate of 78 no acute sign of MIs or ischemia. PVCs. Discharge Plan Dx/Rx/DC Orders Clinical Impression: Bilateral edema of lower extremity, CHF (congestive heart failure), History of diastolic dysfunction, Acute dyspnea, Chronic anticoagulation, History of deep vein thrombosis Disposition Disposition: Acute Care Hospital [facility]
[2025-08-19 14:50] LABS: Anion Gap 9 (5-15); BUN 16 mg/dL (4-19); BUN/Creat Ratio 19.0 RATIO (10-20); Calcium,Total 8.8 mg/dL (7.6-11.0); Carbon Dioxide 27.6 mmol/L (21.0-32.0); Chloride 103 mmol/L (98-108); Estimated Creatinine Clearance 92.82 ml/min (50-250); Glucose 102 mg/dL (70-99); Potassium 4.3 mmol/L (3.3-5.1); Pro- Brain NATRIURETIC PEPTIDE 703 pg/mL (<=1800); Troponin T High Sensitivity 31 ng/L (<=22)
[2025-08-19 15:23] LABS: Troponin T High Sens 2 HR 37 ng/L (<=22)
--- NOTE | 2025-08-19 15:28 | PCM.HP.STD ---
HPI - General General Date of Admission: 08/19/25 Date of Service: 08/19/25 Chief Complaint: Dyspnea, increased edema, orthopnea. HPI Narrative The patient is an 79 y/o M w/ PMHx: Morbid obesity, HTN, HLD, Asthma, GERD, Hx NSVT s/p implantable loop recorder placement, HFpEF, Chronic macrocytic anemia, CKD stage II per GFR trend who presents to the [facility] ED on 08/19/2025 with history of worsening dyspnea over the last 2 to 3 days with reportedly a URI 1 to 2 weeks previous but this had completely resolved but he notes he has had increased notable BL LE edema, orthopnea and suspected weight gain prompting eventual ED evaluation to be cautious. Normally at this point in the year he would be in [place] but given all his issues ongoing he is not yet to go. He does report that unfortunately he has not been taking his Lasix as it is prescribed and only often been taking 1 tablet specifically 10 mg daily because of significant urination with it. Workup in the ED included T98.2, heart rate 50, BP 150/93, respiratory rate 16, 96% on room air with most recent repeat vitals T97.9, heart rate 85, BP 149/61, respiratory rate 18, 96% on room air, CBC with WC 5.3, hemoglobin 1.5, MCV 1.7, platelet 198 without marked shift, BMP with BUN/Cr 16/0.4, GFR 88, glucose 102, initial troponin 31, repeat 2-hour 37, 4-hour 31, NT proBNPII 703, chest x-ray with stable appearance low lung volumes, blunting costophrenic angles likely from scarring, stable cardiomegaly, EKG with sinus rhythm with no acute evidence of ischemia. In the ED patient ministered Lasix 40 mg IV x 1. PFSH Medical History Implantable loop recorder present Wears hearing aid Wears partial dentures Arthritis Back pain Gastric reflux Non-smoker Shortness of breath on exertion History of pain when walking History of edema History of echocardiogram History of stress test Hypertension Cardiology follow-up encounter Syncope Pure hypercholesterolemia Essential hypertension Hiatal hernia Asthma Atherosclerotic heart disease of [place] coronary artery without angina pectoris Long-term use of high-risk medication Acute respiratory failure with hypoxia Nonsustained ventricular tachycardia PVC (premature ventricular contraction) PAC (premature atrial contraction) Obesity (BMI 30-39.9) Home Medications Medication Instructions Recorded Last Taken Type coenzyme Q10 100 mg capsule 100 mg PO DAILY SUPPLEMENT 05/17/17 04/17/23 History isosorbide mononitrate 60 mg 60 mg PO DAILY HEART #90 tabs 01/18/18 04/18/23 05:30 Rx tablet,extended release 24 hr multivitamin 1 tab PO DAILY SUPPLEMENT 09/05/22 04/17/23 History acetaminophen 500 mg tablet 1,000 mg (2 x 500 mg) PO Q6H PRN 04/19/23 Unknown Rx #100 tabs doxazosin 4 mg tablet 4 mg PO QHS BP #90 tabs 11/27/24 Unknown Rx pravastatin 40 mg tablet 40 mg PO QHS CHOLESTEROL #90 tabs 11/27/24 Unknown Rx diltiazem HCl 120 mg 120 mg PO QDAY 03/20/25 Unknown History capsule,extended release 24 hr finasteride 5 mg tablet 5 mg PO QDAY 03/20/25 Unknown History furosemide 40 mg tablet 40 mg PO QDAY 03/20/25 Unknown History nitroglycerin 0.4 mg sublingual 0.4 mg sublingual Q5M PRN cp #25 03/20/25 Unknown Rx tablet tabs potassium chloride 20 mEq 20 meq PO DAILY #90 TABLETS 07/25/25 Unknown Rx tablet,extended release(part/cryst) apixaban 5 mg (74 tabs) tablets in 5 mg PO PER PKG DIR DVT in thigh, 08/19/25 Unknown History a dose pack ([employer]urancequTargaz[employer] DVT-PE Treat med started by Dr. Herndon 30D Start) coenzyme Q10 75 mg capsule (Ultra 75 mg PO DAILY 08/19/25 Unknown History CoQ10) Allergy/AdvReac Type Severity Reaction Status Date / Time Beta-Blockers Allergy Severe Hives Verified 08/19/25 12:31 (Beta-Adrenergic Bloc ceftriaxone (From Rocephin) Allergy Severe Anaphylaxis Verified 08/19/25 12:31 ciprofloxacin (From Cipro) Allergy Severe Anaphylaxis Verified 08/19/25 12:31 hydralazine Allergy Severe Swelling- Verified 08/19/25 12:31 eyes, feet Iodinated Contrast Media Allergy Hives Verified 08/19/25 12:31 (CONTRASTS) iodine Allergy Hives Verified 08/19/25 12:31 NAHUM Inhibitors AdvReac Severe Swelling Verified 08/19/25 12:31 amlodipine AdvReac Severe Edema,legs Verified 08/19/25 12:31 clonidine AdvReac Severe RAsh Verified 08/19/25 12:31 valsartan (From Diovan) AdvReac Severe RAsh Verified 08/19/25 12:31 Family History Mother CAD (coronary artery disease) Myocardial infarction Father CAD (coronary artery disease) Myocardial infarction Brother CAD (coronary artery disease) Hx of CABG Brother CAD (coronary artery disease) Surgical History History of loop recorder Hx of colonoscopy History of cataract extraction History of cholecystectomy History of carpal tunnel surgery Social History Smoking Status: Never smoker alcohol intake: current details: occasional substance use type: does not use caffeine: Yes Type: coffee Number of servings: 3 ROS ROS Narrative Admission Review of Systems: CONSTITUTIONAL: No weight loss, fever, chills, + weight gain, weakness or fatigue. HEENT: Eyes: No visual loss, blurred vision, double vision or yellow sclerae. Ears, Nose, Throat: No hearing loss, sneezing, congestion, runny nose or sore throat. SKIN: No rash or itching, lesions, wounds + except occasional stage ecchymoses, abrasion, notable bilateral lower extremity venous stasis skin changes. CARDIOVASCULAR: + Increased edema, weight gain, orthopnea. No chest pain, chest pressure or chest discomfort, palpitations, syncopal events. RESPIRATORY: + Dyspnea. No marked current cough or sputum, wheezing, hemoptysis. GASTROINTESTINAL: No anorexia, nausea, vomiting or diarrhea, abdominal pain, melena, BRBPR. GENITOURINARY: No dysuria, frequency, urgency or retention. NEUROLOGICAL: No headache, dizziness, syncope, paralysis, ataxia, numbness or tingling in the extremities, focal weakness, change in bowel or bladder control, seizure. MUSCULOSKELETAL: + muscle, back pain, joint pain or stiffness. HEMATOLOGIC:+ Chronic anemia, easy bleeding/bruising. LYMPHATICS: No enlarged nodes. No history of splenectomy. PSYCHIATRIC: No history of depression or anxiety. ENDOCRINOLOGIC: No reports of sweating, cold or heat intolerance. No polyuria or polydipsia. ALLERGIES: + History of asthma, hives, anaphylaxis. Vital Signs Vital Signs Vital Signs: 08/19/25 12:28 08/19/25 13:06 08/19/25 13:39 Temperature 98.2 F Temperature Source Oral Pulse Rate 50 L Respiratory Rate 16 Respiratory Effort Normal Non-Labored Respiratory Depth Normal Respiratory Pattern Normal Blood Pressure 150/93 H Blood Pressure Mean 112 Pulse Ox 96 Oxygen Delivery Method Room Air Room Air Room Air 08/19/25 14:28 Temperature Temperature Source Pulse Rate 96 Respiratory Rate 22 H Respiratory Effort Respiratory Depth Respiratory Pattern Blood Pressure 162/77 H Blood Pressure Mean 105 Pulse Ox 95 Oxygen Delivery Method Room Air Weight Weight: 283 lb Body Mass Index (BMI) 40.6 Physical Exam Narrative Physical Examination: General: Awake, alert, oriented x 3 and cooperative, seated upright in the ED bed, fatigued but no acute distress. Skin: Normal color, normal turgor, no icterus, no cyanosis except occasional stage ecchymoses, abrasion, notable bilateral lower extremity right greater than left venous stasis skin changes. HEENT: AT/NC, EOMI, PERRLA, MMM, no carotid bruits, difficult to discern JVD given very thickened neck. Lungs: Diminished, greater bases, mildly increased respiratory rate but no distress, breath sounds are distant likely secondary to habitus, no appreciated significant rales, rhonchi or wheezing. Heart: Regular rate and rhythm; no gallop, rub audible. Abdomen: Soft, morbidly obese, NTTP, distant BS, difficult to discern distention and HSM given habitus. Extremities: No cyanosis, no clubbing, significant pedal to mid thigh bilateral 3+ pitting edema, see skin. Neurological: Patient awake, alert, oriented as noted, cognitive function intact; pupils equally reactive to light and accommodation, cranial nerves grossly normal, moving all 4 extremities, no focal deficits, strength moderately to severely globally decreased Psychiatric: Affect appears fatigued otherwise normal, no acute evidence of depressive or anxiety feelings. Results Lab / Micro Data 08/19/25 13:15 08/19/25 13:15 Labs: Laboratory Results - last 24 hr 08/19/25 13:15: WBC 5.3, RBC 3.57 L, Hgb 11.5 L, Hct 36.3 L, MCV 101.7 H, MCH 32.2 H, MCHC 31.7 L, RDW Std Deviation 51.6 H, RDW Coeff of Dc 13.6, Plt Count 198, MPV 9.9, Immature Gran % (Auto) 0.200, Neut % (Auto) 60.9, Lymph % (Auto) 22.9, [place] % (Auto) 10.5 H, Eos % (Auto) 4.9, Baso % (Auto) 0.6, Absolute Neuts (auto) 3.3, Absolute Lymphs (auto) 1.22, Nucleated RBC % 0, Sodium 140, Potassium 4.3, Chloride 103, Carbon Dioxide 27.6, Anion Gap 9, BUN 16, Creatinine 0.84, Estim Creat Clear Calc 92.82, Est GFR (MDRD) Non-Af 88, BUN/Creatinine Ratio 19.0, Glucose 102 H, Calcium 8.8, Troponin T High Sens 31 H, NT pro BNP II 703 08/19/25 14:20: Troponin T Hi Sens 2 Hr 37 H Rhythm Strip Rhythm Strip: Sinus Rhythm Rate: 78 Ectopy: PVC(s) Imaging Radiology Impression Chest X-Ray 08/19/25 13:44 IMPRESSION: Stable appearance of the chest with low lung volumes. Blunted costophrenic angles likely indicative of scarring bilaterally. Stable cardiomegaly. Reading Location: [facility] Assessment & Plan Assessment/Plan (1) CHF (congestive heart failure): PLAN: Plan The patient is an 79 y/o M w/ PMHx: Morbid obesity, HTN, HLD, Asthma, GERD, Hx NSVT s/p implantable loop recorder placement, HFpEF, Chronic macrocytic anemia, CKD stage II per GFR trend who presents to the [facility] ED on 08/19/2025 with history of worsening dyspnea over the last 2 to 3 days with reportedly a URI 1 to 2 weeks previous but this had completely resolved but he notes he has had increased notable BL LE edema, orthopnea and suspected weight gain prompting eventual ED evaluation to be cautious. #1. Acute Decompensated HFpEF exacerbation: Patient administered IV lasix in the ED, will admit to PCU, maintain on cardiac telemetry, obtain serial EKGs, continue IV lasix diuresis, monitor I/Os, maintain on intake restriction, continue medical therapy, will obtain TSH and magnesium level. Most recent ECHO noted 2022 thus will request repeat. Will place snug nahum wraps with lower extremity elevation as able to tolerate. PT/OT/case management consulted for discharge planning. #2. Hypertension: Continue home regimen including isosorbide, doxazosin, diltiazem, IV Lasix as noted. #3. Hyperlipidemia: Continue home statin regimen. AM FLP. #4. Chronic asthma: Per current list does not appear to be on chronic asthmatic regimen, will have as needed albuterol, encourage head of bed and I-S. #5. History NSVT: Status post previous implantable loop recorder, continue home diltiazem regimen. #6. Chronic macrocytic anemia: Admission, 11.5, MCV 101.7, baseline hemoglobin primarily 12 but vacillates, stable, continue to trend. #7. Chronic Kidney Disease Stage II per GFR trend: Admission BUN/Cr 16/0.84, GFR 88, baseline renal function primarily 0.8-0.9, repeat BMP in AM. #8. Morbid Obesity: Weight loss and lifestyle changes encouraged, nutrition consulted for education given #1. #9. History of DVT: Will continue patient home anticoagulant therapy. #10. DVT prophylaxis: Will continue patient home apixaban regimen. #11. CODE status: Patient notes that his who is present would be his medical decision-maker if necessary. Discussed CODE status at length including difference between FULL code, DNR-CCA and DNR-CC status. Following discussions about the differences in these status, requested Full Code status. Charges/Coding Visit Charges Inpatient E&M: 72946 Init Hosp L3
[2025-08-19 16:11] LABS: Troponin T High Sens 4 HR 31 ng/L (<=22)
--- NOTE | 2025-08-19 16:24 | ECHOCS_ITS ---
Reason For Study Reason For Study: CONGESTIVE HEART FAILURE Procedure This was a 2D Doppler, Color Flow transthoracic echocardiogram. Contrast injection was performed. The study was technically difficult. The patient was scanned supine. Exam performed portable in patient room. Left Ventricle Normal LV size. Mild concentric left ventricular hypertrophy. The left ventricular ejection fraction is 60 %. Stage 1 diastolic dysfunction. No regional wall motion abnormalities noted. Right Ventricle Normal RV size. Normal systolic function. Atria Normal left atrium. Normal right atrium. Mitral Valve Normal mitral valve. Tricuspid Valve Normal tricuspid valve. Aortic Valve The aortic valve is not well visualized. Pulmonic Valve Normal pulmonic valve. Great Vessels Normal aortic root. The pulmonary artery is normal size. Normal inferior vena cava. Pericardium/Pleural No pericardial effusion. Medication Diluted definity 2.5ml given slow IV push to enhance endocardial definition. MMode/2D Measurements & Calculations LVIDd: 4.1 cm IVSd: 1.3 cm LVOT diam: 2.2 cm LVIDs: 2.3 cm LVPWd: 1.3 cm RVDd: 4.0 cm FS: 43.1 % LVOT area: 3.8 cm2 Ao root diam: 3.3 cm asc Aorta Diam: 3.1 cm LAV(MOD- bp): 40.7 ml LAV(MOD- bp) Indexed: 17.1 ml/m2 LAV(MOD- sp2): 44.5 ml LAV(MOD- sp4): 32.7 ml SV(MOD- sp4): 79.1 ml LVAd ap4: 39.4 cm2 LVAd ap2: 39.7 cm2 LVLd ap4: 9.0 cm LVLd ap2: 8.9 cm SI(MOD- sp4): 33.2 ml/m2 EDV(MOD-sp4): 139.4 ml EDV(MOD-sp2): 143.3 ml EDV(sp4-el): 146.3 ml EDV(sp2-el): 150.6 ml LVAs ap4: 23.4 cm2 LVAs ap2: 20.9 cm2 LVLs ap4: 7.3 cm LVLs ap2: 7.1 cm ESV(MOD-sp4): 60.3 ml ESV(MOD-sp2): 49.5 ml ESV(sp4-el): 63.0 ml ESV(sp2-el): 52.4 ml EF(MOD-sp4): 56.7 % EF(MOD-sp2): 65.5 % EF(sp4-el): 56.9 % SV(MOD-sp2): 93.8 ml SV(sp4-el): 83.3 ml Ao sinus diam: 3.6 cm SI(MOD-sp2): 39.4 ml/m2 Ao ST Junction: 2.8 cm LA dimension(2D): 3.9 cm LA A4 area: 15.2 cm2 RA A4 area: 12.8 cm2 TAPSE: 1.8 cm Time Measurements MV dec time: 0.23 sec Doppler Measurements & Calculations MV E max haile: 55.2 cm/sec Lat Peak E' Haile: 11.2 cm/sec Med Peak E' Haile: 8.7 cm/sec MV A max haile: 78.8 cm/sec E/E' lat: 4.9 E/E' med: 6.4 MV E/A: 0.70 Ao V2 max: 148.3 cm/sec LV V1 max: 98.3 cm/sec MV dec slope: 241.0 cm/sec2 Ao max P.8 mmHg LV V1 max P.9 mmHg Ao V2 mean: 116.8 cm/sec LV V1 mean P.8 mmHg Ao mean P.8 mmHg LV V1 mean: 81.8 cm/sec Ao V2 VTI: 27.2 cm LV V1 VTI: 20.6 cm AV (velocity ratio): 0.76 JULITO(I,D): 2.9 cm2 JULITO(V,D): 2.5 cm2 SV(LVOT): 78.1 ml PA V2 max: 113.4 cm/sec ECHO/Echo Complete W/ Contrast Interpretation Summary Normal LV size. Mild concentric left ventricular hypertrophy. The left ventricular ejection fraction is 60 %. Stage 1 diastolic dysfunction. Contrast injection was performed. Ordering Physician: Sharon Grande Referring Physician: Price Herndon Chi Performed By: Natalia Mahmood RDCS
[2025-08-19 17:00] LABS: Magnesium 2.2 mg/dL (1.5-2.2)
--- OUTSIDE RECORDS SUMMARY | 2025-08-19 18:43 | XMS RPT_ITS | CCD ---
Author Organization [facility] Care Team Providers Care Record Searcher Name Role Phone Dr. Price Herndon Chi Primary Care Provider Yanick, Dr. Price Viera Referring Provider Dr. Adolfo Law Attending Provider [phone] YanickPrice phan Chi ([facility]) Primary Care Provider Unavailable Dr. Price Herndon Chi Primary Care Provider Yanick, Dr. Price Viera Referring Provider Dr. Burton Quinn Attending Provider 1([facility]) -[phone] Dr. Saul Brush Attending Provider 1([facility])-[phone] Saul Brush Referring Provider 1([facility])-57 [phone] ZULEMA Gallagher Attending Provider Dr. Burton Quinn Admit Provider [phone] Burton Quinn Referring Provider [phone] Dr. Burton Quinn Other Provider [phone] ZULEMA Elder Attending Provider [phone] Dr. Itz Park Attending Provider 1([facility])-[phone] Price Herndon Chi Primary Care Provider Yanick, Dr. Price Viera Referring Provider Dr. Saul Brush Attending Provider [phone] Burton Quinn Attending Provider [phone] Yanick, Dr. Price Viera Primary Care Provider Dr. Saul Brush Attending Provider 1([facility])-[phone] Saul Brush Referring Provider 1([facility])-57 00 KAREN SOMERS DO Attending Unavailabl e PHYSICIAN, NONE Primary Care Unavailable PHYSICIAN, NONE Primary Care Physician Unavailab narayan Herndon MD, Dr. Price Viera Primary Care Provider Gonsalo BRAVO, Dr. Hughes Attending Provider Gonsalo BRAVO, Dr. Hughes Referring Provider Yanick BRAVO, Dr. Price Viera Attending Provider Yanick BRAVO, Dr. Price Viera Referring Provider Yanick BRAVO, Dr. Price Viera Primary Care Provider Gonsalo BRAVO, Dr. Hughes Attending Provider Gonsalo BRAVO, Dr. Hughes Referring Provider Kenzie Gallagher Attending Provider Price Herndon Chi (Historical) Primary Care Provider Unavailable Yanick BRAVO, Dr. Price Viera Primary Care Provider Gonsalo BRAVO, Dr. Hughes Attending Provider Nydia BRAVO, Dr. Ling Attending Provider Yanick BRAVO, Dr. Price Viera Primary Care Provider Gonsalo BRAVO, Dr. Hughes Attending Provider Gonsalo BRAVO, Dr. Hughes Referring Provider Nydia BRAVO, Dr. Ling Referring Provider Yanick BRAVO, Dr. Price Viera Primary Care Provider Yanick BRAVO, Dr. Price Viera Attending Provider Gonsalo BRAVO, Dr. Hughes Attending Provider Gonsalo BRAVO, Dr. Hughes Referring Provider Yanick BRAVO, Dr. Price Viera Referring Provider Yanick BRAVO, Dr. Price Viera Primary Care Physician Yanick BRAVO, Dr. Price Viera Attending Physician Kenzie Gallagher Attending Physician Gonsalo BRAVO, Dr. Hughes Attending Physician Dr. Saul Brush MD Referring Provider Nydia BRAVO, Dr. Ling Attending Physician [phone] Dr. Sushil Stafford MD Referring Provider [phone] Petra BRAVO, Dr. Vincenzo Pastor Attending Physician DIONI WOODSN Attending Unavailable ITIN, MARVIN Referring Unavailable ITIN, MARVIN Attending Unavailable SHIRA TOLLIVERN Attending Unavailable ITIN, MARVIN Referring Unavailable JEDLICKA, CORNELIUS Referring Unavailable O'MURALI, GENEVA Attending Unavailable ITIN, MARVIN Referring Unavailable O'MURALI, GENEVA Attending Unavailable ITIN, MARVIN Referring Unavailable Yanick, Price Chi Referring Unavailable Yanick, Price Chi Primary Care Unavailable Myrtle POOLE, Kenzie Llanes Attending Unavail able Yanick, Price Chi Referring Unavailable Yanick, Price Chi Primary Care Unavailable Yanick, Price Chi Attending Unavailable Yanick, Price Chi Referring Unavailable Yanick, Price Chi Attending Unavailable Yanick, Price Chi Primary Care Unavailable Siska Sushil Referring Unavailable Siska Sushil Attending Unavailable Yanick, Price Chi Primary Care Unavailable Yanick, Price Chi Referring Unavailable Yanick, Price Chi Attending Unavailable Yanick, Price Chi Primary Care Unavailable Yainck, Price Chi Primary Care Unavailable Yanick, Price Chi Attending Unavailable Yanick, Price Chi Primary Care Unavailable Gonsalo, Saul Attending Unavailable Gonsalo, Salu Referring Unavailable Yanick, Price Chi Referring Unavailable Yanick, Price Chi Primary Care Unavailable Yanick, Price Chi Attending Unavailable Yanick, Price Chi Primary Care Unavailable Yanick, Price Chi Attending Unavailable Gonsalo, Saul Referring Unavailable Yanick, Price Chi Primary Care Unavailable Gonsalo, Saul Attending Unavailable Gonsalo, Saul Referring Unavailable Gonsalo, [place] Attending Unavailable Yanick, Price Chi Primary Care Unavailable Yanick, Price Chi Primary Care Unavailable Gonsalo, Saul Referring Unavailable Gonsalo, [place] Attending Unavailable Siska, Sushil Attending Unavailable Yanick, Price Chi Referring Unavailable Yanick, Price Chi Primary Care Unavailable Gonsalo, Saul Referring Unavailable Yanick, Price Chi Primary Care Unavailable Gonsalo, Saul Attending Unavailable Yanick, Price Chi Referring Unavailable Siska, Sushil Attending Unavailable Yanick, Price Chi Primary Care Unavailable Gonsalo, Saul Referring Unavailable Yanick, Prcie Chi Primary Care Unavailable Gonsalo, [place] Attending Unavailable Yanick, Price Chi Primary Care Unavailable Gonsalo, [place] Referring Unavailable Gonsalo, Saul Attending Unavailable Yanick, Price Chi Primary Care Unavailable Gonsalo, Saul Referring Unavailable Gonsalo, [place] Attending Unavailable Gonsalo, Saul Referring Unavailable Gonsalo, Saul Attending Unavailable Yanick, Price Chi Primary Care Unavailable Yanick, Price Chi Primary Care Unavailable Gonsalo, [place] Referring Unavailable Gonsalo, Saul Attending Unavailable Gonsalo, [place] Attending Unavailable Yanick, Price Chi Primary Care Unavailable Gonsalo, [place] Referring Unavailable Siska, Sushil Referring Unavailable Siska, Sushil Attending Unavailable Yanick, Price Chi Primary Care Unavailable Yanick, Price Chi Referring Unavailable Siska, Sushil Attending Unavailable Yanick, Price Chi Primary Care Unavailable Yanick, Price Chi Primary Care Unavailable Gonsalo, Saul Attending Unavailable Gonsalo, Saul Referring Unavailable MIMI MARTIN Referring Unavailable PAULETTE JEROME Attending Unavailable JOHN TOLLIVER Referring Unavailable Allergies Allergy Classification Reported Allergen(s) Allergy Type Date of Onset Reaction(s) Facility (2 sources) Adrenergic Beta-Antagonists Allergy to substance [facility] Work Phone: (20 sources) amLODIPine Drug Allergy Edema,legs [facility] (20 sources) Angiotensin Converting Enzyme (Nahum) Inhibitors; Translations: [NAHUM Inhibitors] Propensity to adverse reactions Swelling [facility] (20 sources) cefTRIAXone; Translations: [ceftriaxone] Drug Allergy Anaphylactic shock [facility] (20 sources) cloNIDine Drug Allergy RAsh [facility] (20 sources) hydrALAZINE Drug Allergy Swelling- eyes, feet [facility] (20 sources) Iodine; Translations: [IODINE] Drug Allergy [facility] (20 sources) valsartan Drug Allergy [facility] (20 sources) Iodinated Contrast Media; Translations: [Iodinated Contrast Media] Allergy to substance [facility] (20 sources) Adrenergic Beta-Antagonists Allergy to substance [facility] (4 sources) Cephalosporins (Antibiotic); Translations: [CEPHALOSPORINS] Drug Allergy Anaphylaxis [facility] Work Phone: (4 sources) hydroCHLOROthiazide / valsartan; Translations: [VALSARTAN-HYDROCHLORO THIAZIDE] Drug Allergy 009 [facility] (4 sources) Ketorolac; Translations: [KETOROLAC TROMETHAMINE] Drug Allergy Anaphylaxis [facility] Work Phone: (4 sources) Metoprolol; Translations: [METOPROLOL SUCCINATE] Drug Allergy Rash [facility] Work Phone: (4 sources) Orphenadrine; Translations: [ORPHENADRINE] Drug Allergy Anaphylaxis [facility] Work Phone: (2 sources) unknown [Other] Propensity to adverse reactions [facility] (1 source) Contrast media; Translations: [iodinated radiocontrast agents] Drug allergy Eruption of skin (disorder) [facility] [place] (12 sources) Ciprofloxacin Drug Allergy Anaphylaxis [facility] (1 source) OTHER; Translations: [OTHER] Propensity to adverse reactions (disorder) [facility] (1 source) Adrenergic Beta-Antagonists Drug allergy (disorder) [facility] (1 source) amLODIPine Drug Allergy [facility] (1 source) cefTRIAXone Drug Allergy [facility] (1 source) Ciprofloxacin Drug Allergy [facility] (1 source) cloNIDine Drug Allergy [facility] (1 source) hydrALAZINE Drug Allergy [facility] (1 source) Iodine Drug Allergy [facility] (1 source) valsartan Drug Allergy [facility] Medications Current Medications Medication Drug Class(es) Dates Sig (Normalized) Sig (Original) acetaminophen 500 mg oral tablet (20 sources) Start: 04-19-2023 take 2 tablets by mouth every six hours as needed Start: 04-19-2023 take 1000 mg by mout h every six hours as needed Acetaminophen Active 1000 MG PO EVERY 6 HOURS NEEDED 100 April 19, 2023 12:00am [id number] 200 actuat albuterol 0.09 mg/actuat metered dose inhaler (2 sources) beta2-Adrenergic Agonist Start: 08-30-2017 take 2 puff(s) by inhalation every four hours as needed for cough albuterol HFA (PROVENTIL HFA, VENTOLIN HFA) 90 mcg/actuation inhaler Indications: Dyspnea and respiratory abnormalities Inhale 2 Puffs as instructed every 4 hours as needed (for cough, wheezing, chest tightness or shortness of breath. Use with spacer. ). 1 Inhaler 2 08/30/2017 Active Comment on above: Inhale 2 Puffs as in structed every 4 hours as needed (for cough, wheezing, chest tightness or shortness of breath. Use with spacer. ). cetirizine hydrochloride 10 mg oral tablet (7 sources) Histamine-1 Receptor Antagonist Start: 01-19-2022 take 1 tablet by mouth once daily Cetirizine (Zyrtec) 10 mg tablet Active 10 MG PO DAILY January 19, 2022 12:00am chondroitin sulfates 400 mg oral capsule (7 sources) Start: 01-18-2018 chondroitin sulfate A sodium 400 mg capsule Active 1200 MG PO daily January 18, 2018 12:00am COMPOUNDED PRESCRIPTION (2 sources) Start: 08-30-2017 COMPOUNDED PRESCRIPTION Indications: Anaphylaxis, initial encounter If patient presents with allergic or anaphylactic reaction, draw a serum tryptase. Fax results to Dr. Hurd at [phone] 1 Vial 08/30/2017 Active Start: 08-30-2017 COMPOUNDED PRE SCRIPTION Indications: Anaphylaxis, initial encounter If patient presents with allergic or anaphylactic reaction, draw a serum tryptase. Fax results to Dr. Hurd at [phone] 1 Vial 0 08/30/2017 Active Comment on above: If patient presents with allergic or anaphylactic reaction, draw a serum tryptase. Fax results to Dr. Hurd at [phone] 24 hr dilTIAZem hydrochloride 120 mg extended release oral capsule (20 sources) Calcium Channel Maryjo Start: 03-20-2025 take 1 capsule by mouth once daily Start: 04-28-2023 End: 03-20-2025 take 1 capsule by mouth once daily Diltiazem Hcl 180 mg capsule,extended release 24 hr Discontinued 180 mg PO DAILY 90 3 June 04, 2024 10:27am March 20, 2025 8:31am Start: 05-17-2017 End: 04-28-2023 take 1 capsule by mouth once daily Diltiazem Hcl 120 mg capsule,extended release 24hr Discontinued 120 mg PO DAILY 90 March 30, 2023 11:56am April 28, 2023 3:13pm BP Comment on above: Take 120 mg by mouth once daily. DilTIAZem (Eqv-Tiazac) 180 mg/24 hours oral capsule, extended release (1 source) Start: 07-25-20 24 DilTIAZem (Eqv-Tiazac) 180 mg/24 hours oral capsule, extended release 0 Refill(s) Start Date: 07/25/24 Status: Ordered [id number] 0.3 ml EPINEPHrine 1 mg/ml auto-injector (2 sources) alpha-Adrenergic Agonist, beta-Adrenergic Agonist, Catecholamine Start: 08-30-20 EPINEPHrine (EPIPEN) 0.3 mg/0.3 mL auto-injector Indications: Anaphylaxis, initial encounter Inject 0.3 mL intramuscularly as needed (for allergic reaction.Seek emergent medical care immediately after use.Disp:one 2-pack w/staff trainer). 1 Each 1 08/30/2017 Active Comment on above: Inject 0.3 mL intram uscularly as needed (for allergic reaction.Seek emergent medical care immediately after use.Disp:one 2-pack w/staff trainer). finasteride 5 mg oral tablet (13 sources) 5-alpha Reductase Inhibitor Start: 03-20-20 take 1 tablet by mouth once daily Start: 07-25-2024 finasteride 5 mg oral tablet 0 Refill(s) Start Date: 07/25/24 Status: Ordered furosemide 40 mg oral tablet (20 sources) Loop Diuretic Start: 03-20-2025 take 1 tablet by donna th once daily Start: 03-20-2025 End: 03-20-2025 take 1 tablet by mouth twice daily Furosemide 40 mg tablet Discontinued 40 mg PO TWICE A DAY March 20, 2025 12:00am March 20, 2025 9:08am Start: 07-25-2024 furosemide 40 mg oral tablet 0 Refill(s) Start Date: 07/25/24 Status: Ordered Start: 03-29-2024 End: 03-20-2025 take 1 tablet by mouth once daily Furosemide 20 mg tablet Discontinued 20 mg PO DAILY 90 0 March 29, 2024 8:07am March 20, 2025 8:30am Start: 03-23-2023 End: 03-29-2024 take 2 tablets by mouth once daily as needed for edema Furosemide (Lasix) 20 mg tablet Discontinued 40 mg PO DAILY as needed for EDEMA March 22, 2024 10:18am March 29, 2024 8:08am Start: 02-23-2023 End: 03-23-2023 take 1 tablet by mouth once daily Furosemide (Lasix) 20 mg tablet Discontinued 20 mg PO DAILY 90 3 February 23, 2023 9:12am March 23, 2023 9:33am Start: 05-17-2017 End: 02-23-2023 take 1 tablet by mouth once daily Furosemide 40 mg tablet Discontinued 40 mg PO DAILY 90 4 June 30, 2021 12:10pm February 23, 2023 9:11am Comment on above: Take 40 mg by mouth twice daily. glucosamine hydrochloride 1500 mg oral tablet (20 sources) Start: 01-18-2018 take 1 tablet by mouth once daily 24 hr isosorbide mononitrate 60 mg extended release oral tablet (20 sources) Nitrate Vasodilator Start: 05-17-2017 End: 01-18-2018 take 1 tablet by mouth once daily, then take 1 tablet by mouth every twenty-four hours Start: 01-29-2009 isosorbide mon onitrate(IMDUR 30 MG 24 HR TAB) Take one(1) tablet daily. 0 01/29/2009 Active Comment on above: Take one(1) tablet d aily. Magnesium (20 sources) Start: 01-19-2022 take 250 mg by mouth once daily Magnesium Active 250 MG PO DAILY January 19, 2022 11:30am Start: 01-19-2022 End: 02-06-2023 take 1 tablet by mouth once daily Magnesium 250 mg tablet Discontinued 250 mg PO DAILY January 19, 2022 12:00am February 06, 2023 9:20am Start: 01-19-2022 End: 02-06-2023 take 250 mg by mouth once daily Magnesium Discontinued 250 MG PO DAILY January 19, 2022 12:00am February 06, 2023 9:20am Start: 01-19-2022 take 250 mg by mouth once abhishek y Magnesium Active 250 MG PO DAILY January 18, 2022 11:00pm Start: 01-19-2022 take 250 mg by mouth once abhishek y Magnesium Active 250 MG PO DAILY January 19, 2022 12:00am Multivitamin preparation (20 sources) Start: 09-05-2022 take 1 tablet by mouth once daily Multivitamin Active 1 TABLET PO DAILY September 05, 2022 10:23am Start: 09-05-2022 take 1 tablet by donna th once daily Multivitamin Active 1 TABLET PO DAILY September 05, 2022 9:23am Start: 05-17-2017 Multivitamin A ctive 1 EACH PO DAILY May 17, 2017 6:19pm Start: 05-17-2017 End: 09-05-2022 Multivitamin Discontinued 1 EACH PO DAILY May 17, 2017 12:00am September 05, 2022 10:24am Start: 05-17-2017 End: 09-05-2022 Multivitamin Discontinued 1 EACH PO DAILY May 16, 2017 11:00pm September 05, 2022 9:24am Start: 05-17-2017 Multivitamin A ctive 1 EACH PO DAILY May 17, 2017 12:00am MULTIVITAMIN TAB (2 sources) Start: 01-29-2009 MULTIVITAMIN T AB Take one(1) tablet daily. 0 01/29/2009 Active Comment on above: Take one(1) tablet d aily. Multivitamin tablet (16 sources) Start: 09-05-2022 Start: 09-05-2022 Multivitamin t ablet Active 1 {tbl} PO DAILY September 05, 2022 10:23am SUPPLEMENT Start: 09-05-2022 Multivitamin t ablet Active 1 {tbl} PO DAILY September 05, 2022 10:23am penicillin v potassium 50 mg/ml oral solution (2 sources) Start: 09-06-2017 penicillin V p otassium (VEETIDS) 250 mg/5 mL suspension Bring to office for oral graded dose challenge 100 mL 09/06/2017 Active Comment on above: Bring to office for oral graded dose challenge Potassium Chloride (20 sources) Start: 07-25-2024 Potassium Chlo ride (Iyw-Odyq-Itm M20) 20 mEq oral tablet, extended release 0 Refill(s) Start Date: 07/25/24 Status: Ordered Start: 05-17-2017 End: 07-16-2024 take 1 tablet by mouth once daily Potassium Chloride 20 mEq tablet,ER particles/crystals Discontinued 20 meq PO DAILY 90 0 March 22, 2024 10:18am July 16, 2024 10:27am SUPPLEMENT take 20 mEq by mouth twice daily potassium chloride (K-JENNIFER, KLOR-CON) 20 mEq packet Take 20 mEq by mouth twice daily. Active Comment on above: Take 20 mEq by mouth twice daily. ubidecarenone 100 mg oral capsule (20 sources) Start: 05-17-2017 take 10 capsules by mouth once daily coenzyme Q10 (CO Q-10) 100 mg cap capsule Take 100 mg by mouth twice daily. Active Comment on above: Take 100 mg by mouth twice daily. Completed/Discontinued Medications Medication Drug Class(es) Dates Sig (Normalized) Sig (Original) acetaminophen 325 mg / oxyCODONE hydrochloride 5 mg oral tablet (20 sources) Opioid Agonist Start: 01-07-2019 End: 01-12-2019 Oxycodone-Acetaminop hen 1 TABLET tablet Discontinued 1 {tbl} PO EVERY 6 HOURS NEEDED as needed for Pain January 07, 2019 12:00am January 11, 2019 12:00am January 12, 2019 12:09am Herpes zoster Zoster without complications Start: 01-07-2019 End: 01-12-2019 take 1 tablet by mouth every six hours as needed Oxycodone-Acetaminophen Discontinued 1 TABLET PO EVERY 6 HOURS NEEDED 11 02January 07, 2019 12:00am January 12, 2019 12:09am apixaban 2.5 mg oral tablet (20 sources) Factor Xa Inhibitor Start: 04-19-2023 End: 05-31-2023 take 1 tablet by mouth twice daily Apixaban (Eliquis) 2.5 mg tablet Discontinued 2.5 mg PO TWICE A DAY 30 0 April 19, 2023 12:00am May 31, 2023 10:38am aspirin 81 mg delayed release oral tablet (20 sources) Platelet Aggregation Inhibitor, Nonsteroidal Anti-inflammatory Drug Start: 01-19-2022 End: 02-06-2023 Aspirin (Adult Low Dose Aspirin) 81 mg tablet,delayed release (DR/EC) Discontinued 81 mg PO DAILY January 19, 2022 12:00am February 06, 2023 9:20am baclofen 10 mg oral tablet (20 sources) gamma-Aminobutyric Acid-ergic Agonist Start: 05-17-2017 End: 01-18-2018 take 1 tablet by mouth once daily Baclofen 10 MG tablet Discontinued 10 mg PO DAILY May 17, 2017 12:00am January 18, 2018 1:04pm calcium carbonate 1250 mg / cholecalciferol 0.01 mg oral tablet (20 sources) Vitamin D Start: 01-19-2022 End: 03-20-2025 Calcium Carbonate-Vitamin D3 500 mg-10 mcg (400 unit) tablet Discontinued 1 {tbl} PO DAILY January 19, 2022 12:00am March 20, 2025 8:32am SUPPLEMENT Start: 01-19-2022 take 1 tablet by donna once daily Calcium Carbonate-Vitamin D3 Active 1 TABLET PO DAILY January 19, 2022 12:00am cefdinir 300 mg oral capsule (20 sources) Cephalosporin Antibacterial Start: 05-17-2017 End: 05-19-2017 take 1 capsule by mouth twice daily Cefdinir 300 MG capsule Discontinued 300 mg PO TWICE A DAY May 17, 2017 12:00am May 19, 2017 8:23am Start: 06-12-2014 End: 06-16-2014 take 1 capsule by mouth every twelve hours Cefdinir 300 MG capsule Discontinued 300 mg PO Q12H June 12, 2014 12:00am June 16, 2014 11:30am Chondroitin Sulf A Sod (Bulk) (15 sources) Start: 05-17-2017 End: 01-18-2018 take 250 mg by mouth once daily Chondroitin Sulf A Sod (Bulk) Discontinued 250 MG PO DAILY May 17, 2017 6:19pm January 18, 2018 1:04pm Start: 05-17-2017 End: 01-18-2018 take 250 mg by mouth once daily Chondroitin Sulf A Sod (Bulk) Discontinued 250 MG PO DAILY May 16, 2017 11:00pm January 18, 2018 12:04pm Start: 05-17-2017 End: 01-18-2018 take 250 mg by mouth once daily Chondroitin Sulf A Sod (Bulk) Discontinued 250 MG PO DAILY May 17, 2017 12:00am January 18, 2018 1:04pm Chondroitin Sulf A Sod (Bulk) 100 GM powder (16 sources) Start: 05-17-2017 End: 01-18-2018 take 100 g by mouth once daily Chondroitin Sulf A Sod (Bulk) 100 GM powder Discontinued 250 mg PO DAILY May 17, 2017 12:00am January 18, 2018 1:04pm clindamycin 300 mg oral capsule (20 sources) Lincosamide Antibacterial Start: 07-12-2023 End: 05-01-2025 take 2 capsules by mouth once Clindamycin Hcl 300 mg capsule Discontinued 600 mg PO ONCE 2 March 20, 2025 9:13am May 01, 2025 10:25am Take within 1 hour prior to dental procedure Start: 07-12-2023 take 600 mg by mouth once Clin damycin Hcl Active 600 MG PO ONCE 2 July 12, 2023 12:00am Take within 1 hour prior to dental procedure Start: 05-01-2023 End: 05-31-2023 Clindamycin Hcl 300 mg capsu le Discontinued 300 mg PO May 01, 2023 12:00am May 31, 2023 10:38am codeine phosphate 2 mg/ml / guaiFENesin 20 mg/ml oral solution (20 sources) Opioid Agonist Start: 05-17-2017 End: 01-18-2018 Codeine-Guaifenesin 120 ML liquid Discontinued 10 mL PO NEEDED as needed for Cough May 17, 2017 12:00am January 18, 2018 1:04pm Start: 05-17-2017 End: 01-18-2018 Codeine-Guaifenesin Disconti nued 10 ML PO NEEDED May 17, 2017 12:00am January 18, 2018 1:04pm docusate sodium 100 mg oral capsule (20 sources) Start: 01-07-2019 End: 03-19-2019 take 1 capsule by mouth once daily Docusate Sodium 100 MG capsule Discontinued 100 mg PO DAILY 20 0 January 07, 2019 12:00am March 19, 2019 9:23am doxazosin 4 mg oral tablet (20 sources) alpha-Adrenergi c Maryjo Start: 05-17-2017 End: 11-27-2024 take 1 tablet by mouth at bedtime Doxazosin 4 mg tablet Discontinued 4 mg PO AT BEDTIME 90 3 October 26, 2023 4:05pm November 27, 2024 3:30pm BP doxycycline hyclate 100 mg oral tablet (20 sources) Tetracycline-cl ass Drug Start: 05-01-2023 End: 03-20-2025 Doxycycline Hyclate 100 mg tablet Discontinued 100 mg PO May 01, 2023 12:00am March 20, 2025 8:32am Start: 09-05-2022 End: 02-06-2023 take 1 tablet by mouth twice daily Doxycycline Hyclate 100 mg tablet Discontinued 100 mg PO TWICE A DAY September 05, 2022 1:00am February 06, 2023 9:20am x7days gabapentin 300 mg oral capsule (20 sources) Anti-epileptic Agent Start: 05-17-2017 End: 08-27-2018 take 1 capsule by mouth once daily Gabapentin 300 MG capsule Discontinued 300 mg PO DAILY May 17, 2017 12:00am August 27, 2018 11:25am Deamoxipwch-L6-Lg swellia Serr (15 sources) Start: 05-17-2017 End: 01-18-2018 take 1500 mg by mouth once daily Xbzecdmhcgq-B0-Ins wellia Serr Discontinued 1500 MG PO DAILY May 17, 2017 6:19pm January 18, 2018 1:05pm Start: 05-17-2017 End: 01-18-2018 take 1500 mg by mouth once daily Uhgxigznjav-M5-Eyoqeuymp Serr Discontinu ed 1500 MG PO DAILY May 16, 2017 11:00pm January 18, 2018 12:05pm Start: 05-17-2017 End: 01-18-2018 take 1500 mg by mouth once daily Ctolrditzdn-J4-Avheezypk Serr Discontinu ed 1500 MG PO DAILY May 17, 2017 12:00am January 18, 2018 1:05pm Zfzjyswqcvz-T5-Tuphvwuku Serr 1 EACH tablet (16 sources) Start: 05-17-2017 End: 01-18-2018 take 1 tablet by mouth once daily Vyoyodegqab-V6-Qdaxponlb Serr 1 EACH tablet Discontinued 1500 mg PO DAILY May 17, 2017 12:00am January 18, 2018 1:05pm halobetasol propionate 0.5 mg/ml topical cream (20 sources) Corticosteroid Start: 06-12-2014 End: 06-16-2014 Halobetasol Propionate (Ultravate) 50 GM Cream..G. Discontinued 15 g TP June 12, 2014 12:00am June 16, 2014 11:30am Multivitamin 1 EACH tablet (16 sources) Start: 05-17-2017 End: 09-05-2022 Multivitamin 1 EACH tablet Discontinued 1 NMA PO DAILY May 17, 2017 12:00am September 05, 2022 10:24am nitroglycerin 0.4 mg sublingual tablet (20 sources) Nitrate Vasodilator Start: 12-04-2017 End: 03-20-2025 Nitroglycerin 0.4 mg tablet, sublingual Discontinued 0.4 mg SL Q5M as needed for cp 20 February 23, 2023 9:13am March 20, 2025 9:13am Start: 12-04-2017 End: 02-23-2023 Nitroglycerin Active 0.4 MG SL Q5M February 23, 2023 9:13am oxyCODONE hydrochloride 5 mg oral tablet (20 sources) Opioid Agonist Start: 05-31-2023 End: 06-07-2023 take 5-10 mg by mouth every six hours as needed for pain Oxycodone 5 mg tablet Discontinued 5 - 10 mg PO EVERY 6 HOURS as needed for Pain Score 6-10/10 25 7 0 May 31, 2023 June 06, 2023 12:00am June 07, 2023 12:04am Other acute postprocedural pain Start: 04-19-2023 End: 07-12-2023 take 5-10 mg by mouth every four hours as needed for pain Oxycodone 5 mg tablet Discontinued 5 - 10 mg PO Q4H as needed for pain 60 7 0 April 19, 2023 July 12, 2023 10:33am Other acute postprocedural pain Other acute postprocedural pain pravastatin sodium 40 mg oral tablet (20 sources) HMG-CoA Reductase Inhibitor Start: 06-12-2014 End: 11-27-2024 take 1 tablet by mouth at bedtime Pravastatin 40 mg tablet Discontinued 40 mg PO AT BEDTIME 90 October 26, 2023 4:05pm November 27, 2024 3:30pm CHOLESTEROL Comment on above: Take 40 mg by mouth once daily. predniSONE 10 mg oral tablet (20 sources) Start: 09-05-2022 End: 02-06-2023 take 1 tablet by mouth once daily Prednisone 10 mg tablet Discontinued 10 mg PO DAILY September 05, 2022 1:00am February 06, 2023 9:21am x6days Start: 05-19-2017 End: 01-18-2018 Prednisone 10 MG tablet Disc ontinued 40 mg PO DAILY 5 0 May 19, 2017 8:24am January 18, 2018 1:01pm Take 40 mg once a day for 5 days then stop. Start: 05-19-2017 End: 01-18-2018 Prednisone Discontinued 40 M G PO DAILY 5 May 19, 2017 8:24am January 18, 2018 1:01pm Take 40 mg once a day for 5 days then stop. Start: 05-17-2017 End: 05-19-2017 take 1 tablet by mouth once daily Prednisone 10 MG tablet Discontinued 10 mg PO DAILY May 17, 2017 12:00am May 19, 2017 8:24am Start: 06-12-2014 End: 06-16-2014 Prednisone 10 MG tablet Disc ontinued 10 mg PO June 12, 2014 12:00am June 16, 2014 11:30am sulfamethoxazole 800 mg / trimethoprim 160 mg oral tablet (20 sources) Dihydrofolate Reductase Inhibitor Antibacterial, Sulfonamide Antimicrobial Start: 01-07-2019 End: 03-19-2019 Sulfamethoxazole-Trimethopri m 1 TABLET tablet Discontinued 1 {tbl} PO TWICE A DAY 14 January 07, 2019 12:00am March 19, 2019 9:24am Start: 01-07-2019 End: 03-19-2019 take 1 tablet by mouth twice daily Sulfamethoxazole-Trimethoprim Discontinu ed 1 TABLET PO TWICE A DAY January 07, 2019 12:00am March 19, 2019 9:24am Problems Active Problems Problem Classification Problem Date Documented Date Episodic/Chronic Cardiac dysrhythmias (20 sources) Ventricular premature beats; Translations: [Ventricular premature depolarization] Onset: 5 Chronic Coronary atherosclerosis and other heart disease (20 sources) Coronary atherosclerosis; Translations: [Atherosclerotic heart disease of [place] coronary artery without angina pectoris] Chronic Disorders of lipid metabolism (20 sources) Pure hypercholesterolemia; Translations: [Pure hypercholesterolemia, unspecified] Chronic Essential hypertension (20 sources) Essential hypertension; Translations: [Essential (primary) hypertension] Onset: 5 Chronic Genitourinary symptoms and ill-defined conditions (1 source) Urgency of urination; Translations: [Urgency of micturition] Onset: 5 Episodic 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 Margins free Nutritional deficiencies (1 source) Vitamin D deficiency, unspecified; Translations: [Vitamin D deficiency, unspecified] Onset: 5 Chronic Osteoarthritis (20 sources) Bilateral osteoarthritis of knees; Translations: [Bilateral primary osteoarthritis of knee] 02-06-2023 Chronic Other acquired deformities (1 source) Lumbar spondylolisthesis 07-25-2024 Episodic Other acquired deformities (1 source) Spondylolisthesis L5/S1 level 07-25-2024 Episodic Other acquired deformities (1 source) Spondylolisthesis, site unspecified; Translations: [Degenerative spondylolisthesis] Onset: 5 Episodic Other aftercare (20 sources) H/O: high risk medication; Translations: [Other senior care (current) drug therapy] 12-04-2017 Episodic Other aftercare (20 sources) Follow-up status; Translations: [Encounter for other orthopedic aftercare] 04-21-2023 Episodic Other aftercare (11 sources) Encounter for other orthopedic aftercare; Translations: [Unspecified orthopedic aftercare] 04-21-2023 Episodic Other circulatory disease (20 sources) Presence of other cardiac implants and grafts; Translations: [Implantable loop recorder present] Onset: 5 02-21-2024 Chronic Other connective tissue disease (20 sources) History of total knee arthroplasty; Translations: [Presence of unspecified artificial knee joint] 04-19-2023 Chronic Other connective tissue disease (9 sources) Presence of unspecified artificial knee joint; Translations: [Knee joint replacement] 04-20-2023 Chronic Other connective tissue disease (1 source) Presence of right artificial knee joint; Translations: [Presence of right artificial knee joint] Onset: 5 Chronic Other connective tissue disease (1 source) Pain in right leg; Translations: [Pain in right leg] Onset: 09-30-202 5 Episodic Other hereditary and degenerative nervous system conditions (1 source) Other specified forms of tremor; Translations: [Action tremor] Onset: Chronic Other nervous system disorders (1 source) Other specified disorders of brain; Translations: [Cerebral ventriculomegaly] Onset: Chronic Other nervous system disorders (1 source) Hydrocephalus, unspecified; Translations: [Hydrocephalus, unspecified type (HCC)] Onset: Chronic Other nervous system disorders (20 sources) Acute postoperative pain; Translations: [Other acute postprocedural pain] 04-19-2023 Episodic Other nervous system disorders (1 source) Unspecified abnormalities of gait and mobility; Translations: [Abnormality of gait] Onset: Episodic Other non-epithelial cancer of skin (1 source) Squamous cell 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, including shoulder; Translations: [Squamous cell 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, including shoulder] Onset: Episodic Other non-traumatic joint disorders (20 sources) Pain in left knee; Translations: [Left knee pain] 02-06-2023 Episodic Other non-traumatic joint disorders (9 sources) Pain in right knee; Translations: [Pain in joint, lower leg] 04-07-2023 Episodic Other nutritional; endocrine; and metabolic disorders (20 sources) Obesity; Translations: [Obesity, unspecified] 12-04-2017 Chronic Other screening for suspected conditions (not mental disorders or infectious disease) (1 source) Encounter for screening, unspecified; Translations: [Screening for condition] Onset: Episodic Residual codes; unclassified (20 sources) Edema; Translations: [Edema, unspecified] 03-20-2025 Episodic Residual codes; unclassified (1 source) Other amnesia; Translations: [Memory loss] Onset: Episodic Spondylosis; intervertebral disc disorders; other back problems (1 source) Degeneration of lumbar intervertebral disc 07-25-2024 Chronic Spondylosis; intervertebral disc disorders; other back problems (1 source) Lumbago with sciatica, unspecified side; Translations: [Low back pain with sciatica, sciatica laterality unspecified, unspecified back pain laterality, unspecified chronicity] Onset: Episodic Syncope (20 sources) Syncope; Translations: [Syncope and collapse] Episodic Thyroid disorders (1 source) Hypothyroidism, unspecified; Translations: [Hypothyroidism, unspecified] Onset: 5 Chronic Unclassified (10 sources) D48.5 - Neoplasm of uncertain behavior of skin Unclassified (1 source) Low back pain, unspecified back pain laterality, unspecified chronicity, unspecified whether sciatica present; Translations: [Low back pain, unspecified back pain laterality, unspecified chronicity, unspecified whether sciatica present] Onset: 5 Unclassified (1 source) Low back pain, unspecified; Translations: [Low back pain, unspecified] Onset: 5 Past or Other Problems Problem Classification Problem Date Documented Da te Episodic/Chronic Other connective tissue disease (1 source) Repeated falls; Translations: [Repeated falls] Onset: 03-21-2025 Episodic Other skin disorders (2 sources) Disorder of skin and/or subcutaneous tissue; Translations: [Disorder of the skin and subcutaneous tissue, unspecified] Onset: 06-06-2007 06-06-2007 Episodic Residual codes; unclassified (1 source) Edema, unspecified; Translations: [Edema, unspecified] Onset: 03-20-2025 Episodic Results Test Name Value Interpretation Reference Range Facility [facility] 07-31-2025 CNOV Office Visit (SPSLUH ) ADOLFO RIVERA ([id number]) 1945 M Date Time Provider Department 07/31/25 4:00 PM PAULETTE JEROME [facility] During your visit today, we recorded the following information about you: Weight Height 119.3 kg 1.74 m Paulette Jerome MD 07/31/2025 8:16 PM Signed SPINE SURGERY NEW PATIENT PCP: Price Viera (Historical) Yanick (Inactive) REFERRING PROVIDER: John Tolliver [address] [place] [id number] Subjective CHIEF COMPLAINT: Right sided LBP, difficulty walking HPI: Adolfo Rivera is a 79 year old male w/ 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 Adolfo reports chronic lower back pain localized to the right side. The pain reportedly began after his knee surgery. He has undergone physical therapy and multiple injections for his back pain, with the most recent injection in January. The injections provided only temporary relief, lasting for a few hours at most. He reports a feeling of weakness in his legs and experiences severe back pain when walking longer distances, which forces him to stop. The pain dissipates when he sits down. He does not report any numbness in his hands or legs. He is able to get around at home without assistive devices but uses a cane when going out. He has not had any falls in the past 6 months, with the last fall occurring in November. He has a history of a blood clot in his thigh, which was discovered at the end of May. He is currently on anticoagulation therapy for the blood clot. He does not have a history of diabetes or smoking. PRECIPITATING EVENT: None DURATION OF SYMPTOMS: Greater Than 1 Year PAIN EVALUATION 07/31/2025 1555 Pain Level: 2 Pain Location: Back-Lower right side Description: Burning Duration Amount of Time: 3 Duration Units: Years Frequency: Continuous Intervention/Comfort measure: Medication Comments: gabapentin, AMBULATORY STATUS: Independent Community Distances PREVIOUS SPINAL SURGERY: None Major Risk Factors Obesity Moderate Risk BMI: 39.41 kg/m2 High: BMI > 40 Moderate: BMI 30-40 Normal: BMI < 30 Diabetes normal High: A1C > 8 Moderate: A1C 7-8 Normal: A1C < 7 Hx of DVT / PE normal High: dx of DVT / PE Normal: no dx of DVT / PE Smoking normal Last Status: Never High: Current smoker Normal: Non smoker Narcotics Use normal High:NarxCare >=300 Moderate: 100-299 Normal: 0-99 Depression normal High: PHQ-9 >14 Moderate: PHQ-9 5-14 Normal: PHQ-9 < 5 Data from F Epic on prior therapies: Last PT session: Date - 07/15/2025 Last Epidural Steroid Injection: No epidural injection on file for last 365 days Last Spine Surgery: No history of prior spine surgery in search of available [facility] records PAST MEDICAL HISTORY Diagnosis Date Essential hypertension, benign HLD (hyperlipidemia) HTN (hypertension) PAST SURGICAL HISTORY Procedure Laterality Date LAPS SURG CHOLECYSTECTOMY W/CHOLANGIOGRAPHY 05/25/07 NEUROPLASTY AND/TRANSPOS MEDIAN NRV CARPAL TUNNE Carpal tunnel decomp BILATERAL Current Outpatient Medications on File Prior to Visit Medication Sig doxazosin (CARDURA) 4 mg tablet Take 4 mg by mouth daily at bedtime. finasteride (PROSCAR) 5 mg tablet Take 5 mg by mouth once daily. gabapentin (NEURONTIN) 100 mg capsule Take 1 capsule by mouth three times a day for 90 days. ELIQUIS 5 mg tab(s) coenzyme Q10 (CO Q-10) 100 mg cap capsule Take 100 mg by mouth twice daily. potassium chloride (K-JENNIFER, KLOR-CON) 20 mEq packet Take 20 mEq by mouth twice daily. furosemide (LASIX) 40 mg tablet Take 40 mg by mouth twice daily. diltiazem CD (CARTIA XT) 120 mg 24 hr capsule Take 120 mg by mouth once daily. pravastatin (PRAVACHOL) 40 mg tablet Take 40 mg by mouth once daily. EPINEPHrine (EPIPEN) 0.3 mg/0.3 mL auto-injector Inject 0.3 mL intramuscularly as needed (for allergic reaction.Seek emergent medical care immediately after use.Disp:one 2-pack w/staff trainer). MULTIVITAMIN TAB Take one(1) tablet daily. isosorbide mononitrate(IMDUR 30 MG 24 HR TAB) Take one(1) tablet daily. penicillin V potassium (VEETIDS) 250 mg/5 mL suspension Bring to office for oral graded dose challenge (Patient not taking: Reported on 07/31/2025) COMPOUNDED PRESCRIPTION If patient presents with allergic or anaphylactic reaction, draw a serum tryptase. Fax results to Dr. Hurd at [phone] albuterol HFA (PROVENTIL HFA, VENTOLIN HFA) 90 mcg/actuation inhaler Inhale 2 Puffs as instructed every 4 hours as needed (for cough, wheezing, chest tightness or shortness of breath. Use with spacer. ). (Patient not taking: Reported on 06/23/2025) No current facility-administered medications on file prior to visit. Objective PHYSICAL EXAM Ht 174 cm (5' 8.5") Wt 119.3 kg (263 lb) BMI 39.41 kg/m? GENERAL APPEARANCE: Well nourished, well developed, and no apparent distress. NEURO PSYCH: Patient oriented to person, place (more content not included)... Normal [facility] CBC W/Diff, Automatedon 10-3 0-2024 Absolute Lymph 1.09 X10 3/uL Normal 0.83-4.51 [facility] Comment on above: Performed By: #### L 500.4050, L501.9520, L100.0100, [id number] #### [facility] [address] [place], [address] Absolute Neut 3.2 X10 3/uL Normal 2.0-7.7 [facility] Comment on above: Performed By: #### L 500.4050, [id number], L100.0100, [id number] #### [facility] [address] [place], [address] Basophils/100 WBC (Bld) 0.6 % Normal 0-[address] [facility] Comment on above: Performed By: #### L 500.4050, [id number], L100.0100, L506.1001 #### [facility] [address] [place], [address] Eosinophils/100 WBC (Bld) 2.6 % Normal 0-5 [facility] Comment on above: Performed By: #### L 500.4050, [id number], L100.0100, [id number] #### [facility] [address] [place], [address] Erythrocyte distribution width (RBC) [Ratio] 13.9 % Normal 11.6-14.6 [facility] Comment on above: Performed By: #### L 500.4050, [id number], L100.0100, L506.1001 #### [facility] [address] [place], [address] Hematocrit (Bld) [Volume fraction] 38.2 % Low 40-54 [facility] Comment on above: Performed By: #### L 500.4050, [id number], L100.0100, L506.1001 #### [facility] [address] [place], [address] Hemoglobin (Bld) [Mass/Vol] 12.6 g/dL Low 13.0-16.5 [facility] Comment on above: Performed By: #### L 500.4050, [id number], L100.0100, L506.1001 #### [facility] [address] [place], [address] IG% 0.200 Normal 0.0-0.9 [facility] Comment on above: Result Comment: IG% - Immature Granulocytes (promyelocytes, myelocytes and metamyelocytes) > 1% indicates that a LEFT SHIFT is Present. Performed By: #### L 500.4050, [id number], L100.0100, L506.1001 #### [facility] [address] [place], [address] Lymphocytes/100 WBC (Bld) 22.2 % Normal 19-41 [facility] Comment on above: Performed By: #### L 500.4050, [id number], L100.0100, L506.1001 #### [facility] [address] [place], [address] MCH (RBC) [Entitic mass] 32.6 pg High 27.0-32.0 [facility] Comment on above: Performed By: #### L 500.4050, [id number], L100.0100, L506.1001 #### [facility] [address] [place], [address] MCHC (RBC) [Mass/Vol] 33.0 g/dL Normal 32-36 [facility] Comment on above: Performed By: #### L 500.4050, [id number], L100.0100, L506.1001 #### [facility] [address] [place], [address] MCV (RBC) [Entitic vol] 98.7 fL High 80-[address] [facility] Comment on above: Performed By: #### L 500.4050, [id number], L100.0100, L506.1001 #### [facility] [address] [place], [address] Monocytes/100 WBC (Bld) 9.0 % Normal 0-[address] [facility] Comment on above: Performed By: #### L 500.4050, [id number], L100.0100, L506.1001 #### [facility] [address] [place], [address] Neutrophils/100 WBC (Bld) 65.4 % Normal 47-70 [facility] Comment on above: Performed By: #### L 500.4050, [id number], L100.0100, L506.1001 #### [facility] [address] [place], [address] Nucleated RBC (Bld) [#/Vol] 0 10*3/uL Normal 0-5 [facility] Comment on above: Performed By: #### L 500.4050, [id number], L100.0100, L506.1001 #### [facility] [address] [place], [address] Platelet mean volume (Bld) [Entitic vol] 9.5 fL Normal 6.2-12.0 [facility] Comment on above: Performed By: #### L 500.4050, [id number], L100.0100, L506.1001 #### [facility] [address] [place], [address] Platelets (Bld) [#/Vol] 216 10*3/uL Normal 150-450 [facility] Comment on above: Performed By: #### L 500.4050, [id number], L100.0100, L506.1001 #### [facility] [address] [place], [address] RBC (Bld) [#/Vol] 3.87 10*6/uL Low 4.6-6.2 [facility] Comment on above: Performed By: #### L 500.4050, [id number], L100.0100, L506.1001 #### [facility] [address] [place], [address] RDW SD 51.1 fl High 35.1-43.9 [facility] Comment on above: Performed By: #### L 500.4050, [id number], L100.0100, L506.1001 #### [facility] [address] [place], [address] WBC (Bld) [#/Vol] 4.9 10*3/uL Normal 4.4-11.0 [facility] Comment on above: Performed By: #### L 500.4050, [id number], L100.0100, L506.1001 #### [facility] [address] [place], [address] [facility] Metabolic [facility] 07-24-2025 Albumin [Mass/Vol] 3.8 g/dL Normal 3.4-4.8 [facility] Comment on above: Performed By: #### L 500.4050, [id number], L100.0100, L506.1001 #### [facility] [address] [place], [address] Albumin/Globulin [Mass ratio] 4.4 {ratio} High 0.9-2.4 [facility] Comment on above: Performed By: #### L 500.4050, [id number], L100.0100, L506.1001 #### [facility] [address] [place], [address] ALK PHOS 72 U/L Normal 40-129 [facility] Comment on above: Performed By: #### L 500.4050, [id number], L100.0100, L506.1001 #### [facility] [address] [place], [address] ALT [Catalytic activity/Vol] 22 U/L Normal <=46 [facility] Comment on above: Performed By: #### L 500.4050, [id number], L100.0100, L506.1001 #### [facility] [address] [place], [address] AST [Catalytic activity/Vol] 23 U/L Normal <=37 [facility] Comment on above: Performed By: #### L 500.4050, [id number], L100.0100, L506.1001 #### [facility] [address] [place], [address] Bilirubin [Mass/Vol] 0.62 mg/dL Normal 0.00-1.30 [facility] Comment on above: Performed By: #### L 500.4050, [id number], L100.0100, L506.1001 #### [facility] [address] [place], [address] BUN/CRE 17.0 RATIO Normal 10-20 [facility] Comment on above: Performed By: #### L 500.4050, [id number], L100.0100, L506.1001 #### [facility] [address] [place], [address] Calcium [Mass/Vol] 8.7 mg/dL Normal 7.6-11.0 [facility] Comment on above: Performed By: #### L 500.4050, [id number], L100.0100, L506.1001 #### [facility] [address] [place], [address] Chloride [Moles/Vol] 103 mmol/L Normal 98-108 [facility] Comment on above: Performed By: #### L 500.4050, [id number], L100.0100, L506.1001 #### [facility] [address] [place], [address] CO2 [Moles/Vol] 27.3 mmol/L Normal 21.0-32.0 [facility] Comment on above: Performed By: #### L 500.4050, [id number], L100.0100, L506.1001 #### [facility] [address] [place], [address] Creatinine [Mass/Vol] 0.90 mg/dL Normal 0.70-1.20 [facility] Comment on above: Performed By: #### L 500.4050, [id number], L100.0100, L506.1001 #### [facility] [address] [place], [address] GAP 8 Normal 5-15 [facility] Comment on above: Performed By: #### L 500.4050, [id number], L100.0100, L506.1001 #### [facility] [address] [place], [address] GFR/1.73 sq M.predicted among non-blacks MDRD (S/P/Bld) [Vol rate/Area] 86 mL/min/{1.73_m2} Normal >60 [facility] Comment on above: Result Comment: mL/m in/1.73m2 CKD-EPI Creatinine Equation (2020) Performed By: #### L 500.4050, [id number], L100.0100, L506.1001 #### [facility] [address], [address] Globulin (S) [Mass/Vol] 0.9 g/dL Low 2.2-4.2 [facility] Comment on above: Performed By: #### L 500.4050, [id number], L100.0100, L506.1001 #### [facility] [address] [place], [address] Glucose [Mass/Vol] 93 mg/dL Normal 70-99 [facility] Comment on above: Performed By: #### L 500.4050, [id number], L100.0100, L506.1001 #### [facility] [address] [place], [address] Potassium [Moles/Vol] 4.4 mmol/L Normal 3.3-5.1 [facility] Comment on above: Performed By: #### L 500.4050, [id number], L100.0100, L506.1001 #### [facility] [address] [place], [address] Sodium [Moles/Vol] 138 mmol/L Normal 133-145 [facility] Comment on above: Performed By: #### L 500.4050, [id number], L100.0100, L506.1001 #### [facility] [address] [place], [address] T PROT 4.6 g/dL Low 5.9-8.4 [facility] Comment on above: Performed By: #### L 500.4050, [id number], L100.0100, L506.1001 #### [facility] [address] [place], [address] Urea nitrogen [Mass/Vol] 15 mg/dL Normal 4-19 [facility] Comment on above: Performed By: #### L 500.4050, [id number], L100.0100, L506.1001 #### [facility] [address] [place], [place], [address] Thyroid Stim Hormone (TSH)on 07-24-2025 TSH 1.410 uIU/mL Normal 0.300-4.200 [facility] Comment on above: Performed By: #### L 500.4050, [id number], L100.0100, L506.1001 #### [facility] [address] [place], [address] Vitamin D,25 Hydroxyon 07-24 Vitamin D 25-OH 27.3 ng/mL Low 30-100 [facility] Comment on above: Result Comment: Anju min D Status Deficiency: <20 ng/mL (50nmol/L) Insufficiency: 20-30 ng/mL (50-75 nmol/L) Sufficiency: 30-100 ng/mL (75-250 nmol/L) Toxicity: >100 ng/mL (>250 nmol/L) Performed By: #### L 500.4050, L501.9520, L100.0100, L506.1001 #### [facility] [address] [place], [place], [address] CNTHERAPYon 07-15-2025 CNTHERAPY OT/PT/Speech Visit (PTWS) ADOLFO RIVERA ([id number]) 1945 M Date Time Provider Department 07/15/25 9:00 AM GENEVA MOTLEY Date Time Provider Department Center 07/15/2025 9:00 AM [id number] MOTLEY Reason for Visit: PT Discharge [752] Primary Visit Diagnosis:Action tremor [G25.2] Other Visit Diagnoses:Abnormality of gait [R26.9] Low back pain with sciatica, sciatica laterality unspecified, unspecified back pain laterality, unspecified chronicity [M54.40] Cerebral ventriculomegaly [G93.89] Memory loss [R41.3] Urgency of micturition [R39.15] Allergies As of Date: 07/15/2025 Noted Allergy Reaction CEPHALOSPORINS 08/30/2017 10 - Anaphylaxis DIOVAN HCT (VALSARTAN-HYDROCHLORO* 01/29/2009 IODINE 01/29/2009 2 - Rash Comments: Possible, patient had reaction once, unknown if iodine caused the reaction. NORFLEX (ORPHENADRINE) 08/30/2017 10 - Anaphylaxis Comments: On 05/17/17, patient developed respiratory failure within 30 minutes of treatment with ceftriaxone, Toradol and orphenadrine. TOPROL XL (METOPROLOL SUCCINATE) 08/30/2017 2 - Rash TORADOL (KETOROLAC TROMETHAMINE) 08/30/2017 10 - Anaphylaxis Comments: On 05/17/17, patient developed respiratory failure within 30 minutes of treatment with ceftriaxone, Toradol and orphenadrine. Date Reviewed: 07/07/2025 Reviewed by: Ritesh Vallejo MA - Fully Assessed Prescriptions as of 07/15/2025 - gabapentin (NEURONTIN) 100 mg capsule Take 1 capsule by mouth three times a day for 90 days. - ELIQUIS 5 mg tab(s) - penicillin V potassium (VEETIDS) 250 mg/5 mL suspension Bring to office for oral graded dose challenge - coenzyme Q10 (CO Q-10) 100 mg cap capsule Take 100 mg by mouth twice daily. - potassium chloride (K-JENNIFER, KLOR-CON) 20 mEq packet Take 20 mEq by mouth twice daily. - furosemide (LASIX) 40 mg tablet Take 40 mg by mouth twice daily. - diltiazem CD (CARTIA XT) 120 mg 24 hr capsule Take 120 mg by mouth once daily. - pravastatin (PRAVACHOL) 40 mg tablet Take 40 mg by mouth once daily. - COMPOUNDED PRESCRIPTION If patient presents with allergic or anaphylactic reaction, draw a serum tryptase. Fax results to Dr. Hurd at [phone] - albuterol HFA (PROVENTIL HFA, VENTOLIN HFA) 90 mcg/actuation inhaler Inhale 2 Puffs as instructed every 4 hours as needed (for cough, wheezing, chest tightness or shortness of breath. Use with spacer. ). - EPINEPHrine (EPIPEN) 0.3 mg/0.3 mL auto-injector Inject 0.3 mL intramuscularly as needed (for allergic reaction.Seek emergent medical care immediately after use.Disp:one 2-pack w/staff trainer). - MULTIVITAMIN TAB Take one(1) tablet daily. - isosorbide mononitrate(IMDUR 30 MG 24 HR TAB) Take one(1) tablet daily. [facility] ADOL[facility] ([id number]) 1945 M Date Time Provider Department 07/10/25 JOHN TOLLIVER NREUS2 During your visit today, we recorded the following information about you: Doron Olivarez RN 07/10/2025 11:16 AM Signed Attempted to contact patient to discuss results of recent MRI. No answer, left VM to call office. ALFONSO Castillo [facility] 07/10/2025 12:40 PM Signed Pt's returned the call. [phone] Doron Olivarez RN 07/10/2025 2:23 PM Signed Spoke with patient, advised him that Dr. Tolliver had reviewed his lumbar MRI and recommends he see's spine surgery. He continues to complain of severe low back pain. Advised him that referral for spine surgery has been placed and provided number for scheduling. Doron Olivarez RN Allergies As of Date: 07/10/2025 Noted Allergy Reaction CEPHALOSPORINS 08/30/2017 10 - Anaphylaxis DIOVAN HCT (VALSARTAN-HYDROCHLORO* 01/29/2009 IODINE 01/29/2009 2 - Rash Comments: Possible, patient had reaction once, unknown if iodine caused the reaction. NORFLEX (ORPHENADRINE) 08/30/2017 10 - Anaphylaxis Comments: On 05/17/17, patient developed respiratory failure within 30 minutes of treatment with ceftriaxone, Toradol and orphenadrine. TOPROL XL (METOPROLOL SUCCINATE) 08/30/2017 2 - Rash TORADOL (KETOROLAC TROMETHAMINE) 08/30/2017 10 - Anaphylaxis Comments: On 05/17/17, patient developed respiratory failure within 30 minutes of treatment with ceftriaxone, Toradol and orphenadrine. Date Reviewed: 07/07/2025 Reviewed by: Ritesh Vallejo MA - Fully Assessed Prescriptions as of 07/10/2025 - gabapentin (NEURONTIN) 100 mg capsule Take 1 capsule by mouth three times a day for 90 days. - ELIQUIS 5 mg tab(s) - penicillin V potassium (VEETIDS) 250 mg/5 mL suspension Bring to office for oral graded dose challenge - coenzyme Q10 (CO Q-10) 100 mg cap capsule Take 100 mg by mouth twice daily. - potassium chloride (K-JENNIFER, KLOR-CON) 20 mEq packet Take 20 mEq by mouth twice daily. - furosemide (LASIX) 40 mg tablet Take 40 mg by mouth twice daily. - diltiazem CD (CARTIA XT) 120 mg 24 hr capsule Take 120 mg by mouth once daily. - pravastatin (PRAVACHOL) 40 mg tablet Take 40 mg by mouth once daily. - COMPOUNDED PRESCRIPTION If patient presents with allergic or anaphylactic reaction, draw a serum tryptase. Fax results to Dr. Hurd at [phone] - albuterol HFA (PROVENTIL HFA, VENTOLIN HFA) 90 mcg/actuation inhaler Inhale 2 Puffs as instructed every 4 hours as needed (for cough, wheezing, chest tightness or shortness of breath. Use with spacer. ). - EPINEPHrine (EPIPEN) 0.3 mg/0.3 mL auto-injector Inject 0.3 mL intramuscularly as needed (for allergic reaction.Seek emergent medical care immediately after use.Disp:one 2-pack w/staff trainer). - MULTIVITAMIN TAB Take one(1) tablet daily. - isosorbide mononitrate(IMDUR 30 MG 24 HR TAB) Take one(1) tablet daily. Problem List As Of Date 07/10/2025 Noted Resolved SKIN DISORDER NOS [L98.9] 06/06/2007 Action tremor [G25.2] 07/08/2025 Abnormality of gait [R26.9] 07/08/2025 Low back pain with sciatica [M54.40] 07/08/2025 Cerebral ventriculomegaly [G93.89] 07/08/2025 Memory loss [R41.3] 07/08/2025 Urgency of micturition [R39.15] 07/08/2025 Encounter Status:Closed by FELLOWSDORON on 07/10/25 Normal [facility] [id number] 07-08-2025 [id number] HNO ID: [id number] Author: GENEVA MOTLEY PT Service: ? Author Type: Physical Therapist Type: [id number] Filed: 07/08/2025 12:27 Note Text: [facility] Physical Therapy Plan of Care Certification Patient Name: Adolfo Rivera : 1945 [facility] #: [id number] Date: 07/08/2025 To: Marvin Bliss MD From Therapist: Geneva Motley PT RE: Patient Certification/ Recertification Your review, approval and electronic signature are required in order to comply with Payor: MEDICARE / Plan: MEDICARE A AND B / Product Type: Medicare / regulations. The identified Physical Therapy PLAN OF CARE for the patient is as follows: M54.40 Low back pain with sciatica, sciatica laterality unspecified, unspecified back pain laterality, unspecified chronicity (primary encounter diagnosis) G25.2 Action tremor R26.9 Abnormality of gait G93.89 Cerebral ventriculomegaly R41.3 Memory loss R39.15 Urgency of micturition PLAN OF CARE: Assessment: Adolfo Rivera presents with diagnosis of action tremor, abnormality of gait, LBP, cerebral ventriculomegaly, memory loss, uregency of micturition that interferes with standing . The patient presents with impairments in ADL's, balance, flexibility, gait, independence in exercise, joint mobility, overall function, patient reported outcome measures, posture, range of motion, strength, symptom management, and tissue tenderness. PROMIS? (Patient-Reported Outcomes Measurement Information System) scores were reviewed and identified as a rehabilitation concern. Prognosis for therapy is Fair due to: clinical presentation . The patient will benefit from skilled therapy services to meet the goals established for this plan of care as noted below. Classification Pain Mechanism Classification: Nociceptive Low Back Pain Classification: Symptom Modulation Goals for Episode of Care: established 07/08/25 Patient will report no falls. Improve score on Timed Up and Go Test to 10 seconds to reflect decreased fall risk. Improve score on 30 Second Chair Stand to 10 repetitions to reflect decreased fall risk. Fingal in home exercise program including cardiovascular exercise. Patient will demonstrate independent and proper use of assisstive device to allow for improved walking quality and safety therefore reducing the risk of falls. Perform walking x 10-15 min with SC and mod indep without increased symptoms. Patient Goals: reduce LBP and improve tolerance with prolonged standing/walking Time Frame for Goals and Treatment : 08/19/25 Planned Interventions, Frequency, and Duration: Current Frequency: 1x/week Duration: 6 weeks Total Number of Visits Planned: 6 Planned Treatment Interventions: Self-residential management (76589), Gait Training (45798), Therapeutic activities (20348), Manual therapy (40866), Neuromuscular re-education (63407), Therapeutic exercise (56543) PLAN FOR NEXT VISIT: assess pt. ability to self manage symptoms with lumbar flexion movement, balance training as tolerated upright, seated core stabilization. gait training and correct use of SC Patient demonstrates good understanding of plan of care and treatment. The above goals and plan of care were discussed and agreed upon by patient/family. For further details regarding this patient refer to the Physical Therapy electronically documented visit dated 07/08/2025. Provider Attestation I have reviewed the treatment plan for Adolfo Rivera, [facility]# [id number] for the period of 07/08/25 -- 08/19/25, established on 07/08/2025. Signature certifies the need for therapy services. Normal [facility] CNTHERAPYon 07-08-2025 CNTHERAPY OT/PT/Speech Visit (PTWS) ADOLFO RIVERA ([id number]) 1945 M Date Time Provider Department 07/08/25 12:00 PM GENEVA MOTLEY PTWS Date Time Provider Department [place] 07/08/2025 12:00 PM [id number]-EGENEVA MOTLEY PTWS Diana Langford Reason for Visit: PT Ruth [747] Primary Visit Diagnosis:Low back pain with sciatica, sciatica laterality unspecified, unspecified back pain laterality, unspecified chronicity [M54.40] Other Visit Diagnoses:Action tremor [G25.2] Abnormality of gait [R26.9] Cerebral ventriculomegaly [G93.89] Memory loss [R41.3] Urgency of micturition [R39.15] Allergies As of Date: 07/08/2025 Noted Allergy Reaction CEPHALOSPORINS 08/30/2017 10 - Anaphylaxis DIOVAN HCT (VALSARTAN-HYDROCHLORO* 01/29/2009 IODINE 01/29/2009 2 - Rash Comments: Possible, patient had reaction once, unknown if iodine caused the reaction. NORFLEX (ORPHENADRINE) 08/30/2017 10 - Anaphylaxis Comments: On 05/17/17, patient developed respiratory failure within 30 minutes of treatment with ceftriaxone, Toradol and orphenadrine. TOPROL XL (METOPROLOL SUCCINATE) 08/30/2017 2 - Rash TORADOL (KETOROLAC TROMETHAMINE) 08/30/2017 10 - Anaphylaxis Comments: On 05/17/17, patient developed respiratory failure within 30 minutes of treatment with ceftriaxone, Toradol and orphenadrine. Date Reviewed: 07/07/2025 Reviewed by: Ritesh Vallejo MA - Fully Assessed Prescriptions as of 07/08/2025 - gabapentin (NEURONTIN) 100 mg capsule Take 1 capsule by mouth three times a day for 90 days. - ELIQUIS 5 mg tab(s) - penicillin V potassium (VEETIDS) 250 mg/5 mL suspension Bring to office for oral graded dose challenge - coenzyme Q10 (CO Q-10) 100 mg cap capsule Take 100 mg by mouth twice daily. - potassium chloride (K-JENNIFER, KLOR-CON) 20 mEq packet Take 20 mEq by mouth twice daily. - furosemide (LASIX) 40 mg tablet Take 40 mg by mouth twice daily. - diltiazem CD (CARTIA XT) 120 mg 24 hr capsule Take 120 mg by mouth once daily. - pravastatin (PRAVACHOL) 40 mg tablet Take 40 mg by mouth once daily. - COMPOUNDED PRESCRIPTION If patient presents with allergic or anaphylactic reaction, draw a serum tryptase. Fax results to Dr. Hurd at [phone] - albuterol HFA (PROVENTIL HFA, VENTOLIN HFA) 90 mcg/actuation inhaler Inhale 2 Puffs as instructed every 4 hours as needed (for cough, wheezing, chest tightness or shortness of breath. Use with spacer. ). - EPINEPHrine (EPIPEN) 0.3 mg/0.3 mL auto-injector Inject 0.3 mL intramuscularly as needed (for allergic reaction.Seek emergent medical care immediately after use.Disp:one 2-pack w/staff trainer). - MULTIVITAMIN TAB Take one(1) tablet daily. - isosorbide mononitrate(IMDUR 30 MG 24 HR TAB) Take one(1) tablet daily. Normal [facility] CBC W Auto Differential pane l (Bld)on 07-07-2025 Basophils (Bld) [#/Vol] 0.03 10*3/uL Normal <0.11 [facility] Comment on above: Order Comment: Speci men Type: BLOOD SPECIMENOrdering Facility: [facility] Address: [address] [place] [address] Performed By: #### 5 7021-8 ####[facility] LABIA [id number] [place] [address] [place] Basophils/100 WBC (Bld) 0.7 % Normal C [facility] Comment on above: Order Comment: Speci men Type: BLOOD SPECIMENOrdering Facility: [facility] Address: [address] [place] [address] Performed By: #### 5 7021-8 ####[facility] LABIA [id number] [place] [address] [place] Differential cell count method Nom (Bld) Auto Normal [facility] Comment on above: Order Comment: Speci men Type: BLOOD SPECIMENOrdering Facility: [facility] Address: [address] [place] [address] Performed By: #### 5 7021-8 ####[facility] LABCLIA [id number] [address], [place] [address] [place] Eosinophils (Bld) [#/Vol] 0.10 10*3/uL Normal <0.46 [facility] Comment on above: Order Comment: Speci men Type: BLOOD SPECIMENOrdering Facility: [facility] Address: [address] [place] [address] Performed By: #### 5 7021-8 ####[facility] LABCLIA [id number] [address], [place] [address] [place] Eosinophils/100 WBC (Bld) 2.2 % Normal [facility] Comment on above: Order Comment: Speci men Type: BLOOD SPECIMENOrdering Facility: [facility] Address: [address] [place] [address] Performed By: #### 5 7021-8 ####[facility] LABCLIA [id number] [address], [facility] [place] Erythrocyte distribution width (RBC) [Ratio] 14.3 % Normal 11.5-15.0 [facility] Comment on above: Order Comment: Speci men Type: BLOOD SPECIMENOrdering Facility: [facility] Address: [address] [place] [address] Performed By: #### 5 7021-8 ####[facility] LABCLIA [id number] [address], [facility] [place] Hematocrit (Bld) [Volume fraction] 40.1 % Normal 39.0-51.0 [facility] Comment on above: Order Comment: Speci men Type: BLOOD SPECIMENOrdering Facility: [facility] Address: [address] [place] [address] Performed By: #### 5 7021-8 ####[facility] LABCLIA [id number] [address] [place] [address] [place] Hemoglobin (Bld) [Mass/Vol] 12.7 g/dL Low 13.0-17.0 [facility] Comment on above: Order Comment: Speci men Type: BLOOD SPECIMENOrdering Facility: [facility] Address: [address] [place] [address] Performed By: #### 5 7021-8 ####[facility] LABCLIA [id number] [facility] [place] [address] [place] Immature granulocytes (Bld) [#/Vol] 10*3/uL Normal <0.10 [facility] Comment on above: Order Comment: Speci men Type: BLOOD SPECIMENOrdering Facility: [facility] Address: [address] [place] [address] Performed By: #### 5 7021-8 ####[facility] LABCLIA [id number] [place] [address] [place] Immature granulocytes/100 WBC (Bld) 0.2 % Normal [facility] Comment on above: Order Comment: Speci men Type: BLOOD SPECIMENOrdering Facility: [facility] Address: [address] [place] [address] Performed By: #### 5 7021-8 ####[facility] LABCLIA [id number] [place] [address] [place] Lymphocytes (Bld) [#/Vol] 1.04 10*3/uL Normal 1.00-4.00 [facility] Comment on above: Order Comment: Speci men Type: BLOOD SPECIMENOrdering Facility: [facility] Address: [address] [place] [address] Performed By: #### 5 7021-8 ####[facility] LABCLIA [id number] [place] [address] [place] Lymphocytes/100 WBC (Bld) 22.6 % Normal [facility] Comment on above: Order Comment: Speci men Type: BLOOD SPECIMENOrdering Facility: [facility] Address: [address] [place] [address] Performed By: #### 5 7021-8 ####[facility] LABIA [id number] [place] [address] [place] MCH (RBC) [Entitic mass] 32.7 pg Normal 26.0-34.0 [facility] Comment on above: Order Comment: Speci men Type: BLOOD SPECIMENOrdering Facility: [facility] Address: [address] [place] [address] Performed By: #### 5 7021-8 ####[facility] LABIA [id number] [place] [address] [place] MCHC (RBC) [Mass/Vol] 31.7 g/dL Normal 30.5-36.0 [facility] Comment on above: Order Comment: Speci men Type: BLOOD SPECIMENOrdering Facility: [facility] Address: [address] [place] [address] Performed By: #### 5 7021-8 ####[facility] LABIA [id number] [place] [address] [place] MCV (RBC) [Entitic vol] 103.4 fL High 80.0-100.0 C [facility] Comment on above: Order Comment: Speci men Type: BLOOD SPECIMENOrdering Facility: [facility] Address: [address] [place] [address] Performed By: #### 5 7021-8 ####[facility] LABIA [id number] [place] [address] [place] Monocytes (Bld) [#/Vol] 0.41 10*3/uL Normal <0.87 [facility] Comment on above: Order Comment: Speci men Type: BLOOD SPECIMENOrdering Facility: [facility] Address: [address] [place] [address] Performed By: #### 5 7021-8 ####[facility] LABCLIA [id number] [place] [id number] [place] Monocytes/100 WBC (Bld) 8.9 % Normal [facility] Comment on above: Order Comment: Speci men Type: BLOOD SPECIMENOrdering Facility: [facility] Address: [address] [place] [address] Performed By: #### 5 7021-8 ####[facility] LABCLIA [id number] [place] [address] [place] Neutrophils (Bld) [#/Vol] 3.01 10*3/uL Normal 1.45-7.50 [facility] Comment on above: Order Comment: Speci men Type: BLOOD SPECIMENOrdering Facility: [facility] Address: [address] [place] [address] Performed By: #### 5 7021-8 ####[facility] LABIA [id number] [place] [address] [place] Neutrophils/100 WBC (Bld) 65.4 % Normal [facility] Comment on above: Order Comment: Speci men Type: BLOOD SPECIMENOrdering Facility: [facility] Address: [address] [place] [address] Performed By: #### 5 7021-8 ####[facility] LABIA [id number] [place] [address] [place] Nucleated RBC (Bld) [#/Vol] 10*3/uL Normal <0.01 [facility] Comment on above: Order Comment: Speci men Type: BLOOD SPECIMENOrdering Facility: [facility] Address: [address] [place] [address] Performed By: #### 5 7021-8 ####[facility] LABCLIA [id number] [place] [address] [place] Nucleated RBC/100 WBC (Bld) [Ratio] 0.0 /100 WBC Normal [facility] Comment on above: Order Comment: Speci men Type: BLOOD SPECIMENOrdering Facility: [facility] Address: [address] [place] [address] Performed By: #### 5 7021-8 ####[facility] LABIA [id number] [place] [address] [place] Platelet mean volume (Bld) [Entitic vol] 9.7 fL Normal 9.0-12.7 [facility] Comment on above: Order Comment: Speci men Type: BLOOD SPECIMENOrdering Facility: [facility] Address: [address] [place] [address] Performed By: #### 5 7021-8 ####[facility] LABIA [id number] [place] [address] [place] Platelets (Bld) [#/Vol] 233 10*3/uL Normal 150-400 [facility] Comment on above: Order Comment: Speci men Type: BLOOD SPECIMENOrdering Facility: [facility] Address: [address] [place] [address] Performed By: #### 5 7021-8 ####[facility] LABIA [id number] [place] [address] [place] RBC (Bld) [#/Vol] 3.88 10*6/uL Low 4.20-6.00 [facility] Comment on above: Order Comment: Speci men Type: BLOOD SPECIMENOrdering Facility: [facility] Address: [address] [place] [address] Performed By: #### 5 7021-8 ####[facility] LABIA [id number] [place] [address] [place] WBC (Bld) [#/Vol] 4.60 10*3/uL Normal 3.70-11.00 [facility] Comment on above: Order Comment: Speci men Type: BLOOD SPECIMENOrdering Facility: [facility] Address: [address] [place] [address] Performed By: #### 5 7021-8 ####[facility] LABRADHAIA [id number] [address] STATES [place] [facility] CNOVon 07-07-2025 CNOV Office Visit (SPNMMN ) ADOLFO RIVERA ([id number]) 1945 M Date Time Provider Department 07/07/25 1:20 PM [facility] During your visit today, we recorded the following information about you: Pulse Blood pressure Weight 65/minute 105/42 119.3 kg Cornelius Woods MD 07/08/2025 1:46 PM Signed [facility] STAFF PHYSICIAN NOTE OF PERSONAL INVOLVEMENT IN CARE I have reviewed the consult note obtained and documented by the fellow and I personally participated in the granado components. I have discussed the case and management of the patient's care. The following comments revise or confirm relevant granado components of their note. IMPRESSION 79 yo man with cLBP Previously to neuro 06/23/25 for worsening gait , ataxia, shuffling gait and bowel incontinence Ongoing neuro work up ? Multifactorial PD, NPH, wants to make sure not spine involvement and with the cLBP x 2 years Slowly progressive, now severe back pain Urine incontinence and bowel incontinence feels it coming but cannot hold at times, sounds more like urgency and in context of difficulty with walking Location- Right low back, occ radiation to posterior thigh but not below knee DVT RLE thigh on eliquis dx 1 month ago No N/T Worse with walking, standing, cannot gricelda more than 5 min 0/10 with sitting but can be up to 10/10 with walking Immediately relief with sitting Only tylenol ,not really help MRI L spine 07/04/25 on personal review L4L5 with severe canal stenosis, less at L3L4 Ligamentum flavum hypertrophy about 5.22mm on my measurement at L4L5 L5S1 with NFS Prior MICHAEL? Done in [place], others in [place], no records, he is not sure type or level but did not help- but had 7 total Only very min help with first one. Exam javier + facet loading on right TTP L5S1 facet region MMT 5/5 SILT in UE/LEs DTRs 2+ at knees but only trace at ankles To start PT soon- already had orders- in past but not recent No falls since having cane Consider aquatics first (while Dr. Tolliver completing work up) and to be more gentle on back, if not improve, could consider for eval for MILD with L4L5 ligamentum flavum hypertrophy at about 5.2 mm and failing that, eval for possible lami Also TTP right L5S1 facet and + facetloading- also targetable In interim, consider neurontin for canal stenosis with neurogenic claudication- ordered 100mg tid, ordered for cbc, cmp for baseline and for guide on neurontin dosing adjustments Allergy list had old listing for : Other-unknown with following reaction: Heart medication, given by Dr. Maldonado caused rash. 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 SIGNATURE: Cornelius Woods MD DATE of SERVICE: July 07, 2025 I spent a total of 45 minutes on the date of the service which included preparing to see the patient, [id number] patient care, completing clinical documentation, obtaining and/or reviewing separately obtained history, performing a medically appropriate examination, counseling and educating the patient/family/caregive r, ordering medications, tests, or procedures, communicating with other HCPs (not separately reported), independently interpreting results (not separately reported), and communicating results to the patient/family/caregive r. Consultation requested by Dr. Marvin Bliss for an opinion regarding back pain. My final recommendations will be communicated back to the requesting physician by way of shared medical record or letter via US mail Devendra Anthony MD 07/08/2025 1:46 PM Signed Physical Medicine and Rehabilitation New patient July 07, 2025 SUBJECTIVE HISTORY OF PRESENT ILLNESS: Adolfo Rivera is a 79 year old man evaluated for impaired gait and low back pain The pain has been present for 2 years. Duration of Pain: Chronic (> 12 weeks) His pain level is currently 0 on a scale of 0-10 while sitting here. But reports it can increase to much higher levels when walking The pain is located in the lower back on the right and described as stabbing. Pain Radiation: down the right thigh posteriorly to the level of the knee Aggravating Factors: standing and walking Alleviating Factors: sitting Pain Ratio: Pain in the back is greater than in the leg Adolfo is an 79-year-old male with multifactorial gait disturbance, ventriculomegaly, and a recent right thigh DVT, presenting with chronic low back pain. He is accompanied by his , who provides taylor (more content not included)... Normal [facility] Comprehensive metabolic 2000 panelon 07-07-2025 Albumin [Mass/Vol] 3.9 g/dL Normal 3.9-4.9 [facility] Comment on above: Order Comment: Ignaciai men Type: BLOOD SPECIMENOrdering Facility: [facility] Address: [address] [place] [address] Performed By: #### 2 4323-8 ####[facility] LABCLIA [id number] [place] [address] [place] ALP [Catalytic activity/Vol] 75 U/L Normal 38-113 [facility] Comment on above: Order Comment: Speci men Type: BLOOD SPECIMENOrdering Facility: [facility] Address: [address] [place] [address] Performed By: #### 2 4323-8 ####[facility] LABCLIA [id number] [place] [address] [place] ALT [Catalytic activity/Vol] 22 U/L Normal 10-54 [facility] Comment on above: Order Comment: Ignaciai men Type: BLOOD SPECIMENOrdering Facility: [facility] Address: [address] [place] [address] Performed By: #### 2 4323-8 ####[facility] LABCLIA [id number] [facility] [address] [place] [address] [place] Anion gap [Moles/Vol] 9 mmol/L Normal 8-15 [facility] Comment on above: Order Comment: Speci men Type: BLOOD SPECIMENOrdering Facility: [facility] Address: [address] [place] [address] Performed By: #### 2 4323-8 ####[facility] LABCLIA [id number] [address] [address] [place] AST [Catalytic activity/Vol] 24 U/L Normal 14-40 [facility] Comment on above: Order Comment: Speci men Type: BLOOD SPECIMENOrdering Facility: [facility] Address: [address] [place] [address] Performed By: #### 2 4323-8 ####[facility] LABCLIA [id number] [place] [id number] [place] Bilirubin [Mass/Vol] 0.4 mg/dL Normal 0.2-1.3 [facility] Comment on above: Order Comment: Speci men Type: BLOOD SPECIMENOrdering Facility: [facility] Address: [address] [place] [address] Performed By: #### 2 4323-8 ####[facility] LABCLIA [id number] [place] [id number] [place] Calcium [Mass/Vol] 9.2 mg/dL Normal 8.5-10.2 [facility] Comment on above: Order Comment: Speci men Type: BLOOD SPECIMENOrdering Facility: [facility] Address: [address] [place] [address] Performed By: #### 2 4323-8 ####[facility] LABCLIA [id number] [address] [address] [place] Chloride [Moles/Vol] 102 mmol/L Normal 98-107 [facility] Comment on above: Order Comment: Speci men Type: BLOOD SPECIMENOrdering Facility: [facility] Address: [address] [place] [address] Performed By: #### 2 4323-8 ####[facility] LABCLIA [id number] [place] [id number] [place] CO2 [Moles/Vol] 27 mmol/L Normal 22-30 [facility] Comment on above: Order Comment: Speci men Type: BLOOD SPECIMENOrdering Facility: [facility] Address: [address] [place] [address] Performed By: #### 2 4323-8 ####[facility] LABIA [id number] [place] [address] [place] Creatinine [Mass/Vol] 1.16 mg/dL Normal 0.73-1.22 [facility] Comment on above: Order Comment: Speci men Type: BLOOD SPECIMENOrdering Facility: [facility] Address: [address] [place] [address] Performed By: #### 2 4323-8 ####[facility] LABIA [id number] [place] [address] [place] eGFRcr SerPlBld CKD-EPI 2020 63 mL/min/1.73m??? Normal >=60 [facility] Comment on above: Order Comment: Speci men Type: BLOOD SPECIMENOrdering Facility: [facility] Address: [address] [place] [address] Result Comment: Jonelle mated Glomerular Filtration Rate (eGFR) is calculated using the 2020 CKD-EPI creatinine equation. This equation utilizes serum creatinine, sex, and age as parameters. The creatinine assay has traceable calibration to isotope dilution-mass spectrometry. Refer to KDIGO guidelines for clinical interpretation. In patients with unstable renal function, e.g. those with acute kidney injury, the eGFR may not accurately reflect actual GFR. Performed By: #### 2 4323-8 ####[facility] LABCLIA [id number] [place] [address] [place] Glucose [Mass/Vol] 129 mg/dL High 74-99 [facility] Comment on above: Order Comment: Speci men Type: BLOOD SPECIMENOrdering Facility: [facility] Address: [address] [place] [address] Result Comment: The [place] Diabetes [employer] (ADA) provides guidance for cutoff values for fasting glucose and random glucose. The ADA defines fasting as no caloric intake for at least 8 hours. Fasting plasma glucose results between 100 to 125 mg/dL indicate increased risk for diabetes (prediabetes). Fasting plasma glucose results greater than or equal to 126 mg/dL meet the criteria for diagnosis of diabetes. In the absence of unequivocal hyperglycemia, results should be confirmed by repeat testing. In a patient with classic symptoms of hyperglycemia or hyperglycemic crisis, random plasma glucose results greater than or equal to 200 mg/dL meet the criteria for diagnosis of diabetes. Reference: Standards of Medical Care in Diabetes 2016, [place] [employer]. Diabetes Care. 2016.39(Suppl 1). Performed By: #### 2 4323-8 ####[facility] LABCLIA [id number] [place] [address] [place] Potassium [Moles/Vol] 4.6 mmol/L Normal 3.7-5.1 [facility] Comment on above: Order Comment: Speci men Type: BLOOD SPECIMENOrdering Facility: [facility] Address: [address] [place] [address] Performed By: #### 2 4323-8 ####[facility] LABCLIA [id number] [place] [id number] [place] Protein [Mass/Vol] 6.1 g/dL Low 6.3-8.0 [facility] Comment on above: Order Comment: Speci men Type: BLOOD SPECIMENOrdering Facility: [facility] Address: [address] [place], [place] [address] Performed By: #### 2 4323-8 ####[facility] LABCLIA [id number] [place] [address] [place] Sodium [Moles/Vol] 138 mmol/L Normal 136-144 [facility] Comment on above: Order Comment: Speci men Type: BLOOD SPECIMENOrdering Facility: [facility] Address: [address] [place] [address] Performed By: #### 2 4323-8 ####[facility] LABCLIA [id number] [place] [address] [place] Urea nitrogen [Mass/Vol] 16 mg/dL Normal 9-24 [facility] Comment on above: Order Comment: Speci men Type: BLOOD SPECIMENOrdering Facility: [facility] Address: [address] [facility] [facility] [place] [address] Performed By: #### 2 4323-8 ####[facility] LABCLIA [id number] [place] [address] [place] MRI BRAIN WO IVCONon -10-2 025 MRI BRAIN WO IVCON * * *Final Report* * * DATE OF EXAM: Jul 04 2025 1:45PM [facility] 0294 - MRI BRAIN WO IVCON / PROCEDURE REASON: multiple diagnoses * * * * Physician Interpretation * * * * EXAMINATION: MRI BRAIN WO IVCON CLINICAL HISTORY: Excellent tremor. Gait abnormality. TECHNIQUE: Routine noncontrast MRI protocol including diffusion images. CSF flow study. MQ: [id number] COMPARISON: None. RESULT: Acute Change: There is no evidence of restricted diffusion to suggest an acute infarct. Hemorrhage: No evidence of prior parenchymal hemorrhage on the susceptibility weighted images. Mass Lesion/ Mass Effect: No evidence of an intracranial mass or extra-axial fluid collection. No significant mass effect. Chronic Change: Scattered punctate foci of increased T2 and FLAIR signal are noted in the supratentorial white matter, a nonspecific finding that most commonly represents minimal chronic small vessel disease. Small remote infarcts left cerebellar hemisphere. Parenchyma: There is moderate generalized parenchymal volume loss. The brain parenchyma is otherwise within normal limits of signal intensity and morphology. Ventricles: The lateral and third ventricles are enlarged but this likely relates to central volume loss. CSF flow study: There is pulsatile bidirectional CSF flow involving cerebral aqueduct, fourth ventricle, foramen of [place]endie, prepontine cistern, anterior and posterior to the cervicomedullary junction and upper cord. Skull Base: Hypothalamic and pituitary region are grossly normal. Craniocervical junction is normal. No significant marrow replacement process. Vasculature: Major intracranial arterial structures, and dural venous sinuses show typical flow void, suggesting patency by spin echo criteria. Other: The visualized paranasal sinuses and mastoid air cells are clear. Likely mucous retention cyst within the left nasal cavity anteriorly. The orbits and extracranial soft tissues are unremarkable. IMPRESSION: No acute intracranial findings. Mild sequela of chronic microvascular ischemia and small remote left cerebellar infarcts. Moderate diffuse parenchymal volume loss likely with corresponding prominence of the ventricular system. CSF flow study as discussed. Set Off Blocker: PSCB Transcribe Date/Time: Jul 04 2025 2:33P Dictated by : JANINA ROQUE MD This examination was interpreted and the report reviewed and electronically signed by: JANINA ROQUE MD on Jul 04 2025 2:37PM EST [id number] Normal [facility] MRI LUMBAR SPINE WO IVCONon 07-04-2025 MRI LUMBAR SPINE WO IVCON * * *Final Report* * * DATE OF EXAM: Jul 04 2025 2:15PM [facility] 0303 - MRI LUMBAR SPINE WO IVCON / PROCEDURE REASON: multiple diagnoses * * * * Physician Interpretation * * * * EXAMINATION: MRI LUMBAR SPINE WO IVCON CLINICAL HISTORY: Low back pain, unspecified back pain laterality, unspecified chronicity, unspecified whether sciatica present Abnormality of gait TECHNIQUE: Routine lumbosacral spine MR protocol without gadolinium. MQ: [id number] COMPARISON: None. RESULT: Counting reference: Lumbosacral junction. For the purposes of this report, L4-5 is considered the level of the iliac crest and assume there are 5 lumbar-type vertebrae. Anatomic variant: None. Localizer images: Bilateral renal cysts. Alignment: Grade 1 anterolisthesis of L4 on L5. Alignment is otherwise preserved. Bone marrow signal/fracture: No evidence of pathologic marrow infiltration. No evidence of prior fracture. Conus: The conus is within normal limits of signal intensity and morphology. Paraspinal soft tissues: Paraspinal soft tissues are within normal limits. Lower thoracic spine: Visualized lower thoracic canal and foramina are patent. L1-L2: Mild disc bulge with mild spinal canal and mild bilateral foraminal stenosis. L2-L3: Canal and foramina are patent L3-L4: Disc bulge with facet and ligamentous hypertrophy resulting in moderate spinal canal stenosis and mild to moderate bilateral foraminal stenosis. L4-L5: Grade 1 degenerative anterolisthesis with disc bulge/uncovering as well as facet and ligamentous hypertrophy resulting in severe spinal canal stenosis and moderate bilateral foraminal stenosis. L5-S1: Facet hypertrophy and disc bulge contributing to severe bilateral foraminal stenosis. No significant canal narrowing. Sacrum and iliac wings: The visualized sacrum and iliac wings are within normal limits. IMPRESSION: Degenerative changes of the lumbar spine as discussed. Findings are most pronounced at L4-5 with severe spinal canal stenosis. Moderate spinal canal stenosis at L3-4. Severe bilateral foraminal narrowing at L5-S1. Anatomic Lumbar Variant: None. L4-5 is considered the level of the iliac crest and assume there are 5 lumbar-type vertebrae. Set Off Blocker: MALICK Transcribe Date/Time: Jul 04 2025 2:37P Dictated by : JANINA ROQUE MD This examination was interpreted and the report reviewed and electronically signed by: JANINA ROQUE MD on Jul 04 2025 2:40PM EST [id number] Normal [facility] CNOVon 06-23-2025 CNOV Office Visit (NREUS2 ) RIVERAADOLFO JO ([id number]) 1945 M Date Time Provider Department 06/23/25 12:30 PM JOHN TOLLIVER NREUS2 During your visit today, we recorded the following information about you: John Tolliver MD 06/23/2025 1:38 PM Signed Referring physician: Dr Bliss SUBJECTIVE: Adolfo Rivera is a 79 year old male seen for evaluation of Normal Pressure Hydrocephalus. Adolfo complains of progressive decline in his gait since 2022. He states the main issues with his gait is severe back pain. He is scheduled to meet with spine team next week. Adolfo does also experience imbalance and shuffling. He is using a cane at all times and admits multiple falls. Adolfo experiences daily urinary incontinence and his family has noticed very mild cognitive decline. Has DVT on eliquis - started last week Past Surgical History: PAST SURGICAL HISTORY Procedure Laterality Date LAP CHOLECYSTECT/CHOLANGIOG MAGEN 05/25/07 REVISE MEDIAN N/CARPAL TUNNEL SURG Carpal tunnel decomp BILATERAL Past Medical History: PAST MEDICAL HISTORY Diagnosis Date Essential hypertension, benign Current Medications: Current Outpatient Medications Medication Sig ELIQUIS 5 mg tab(s) penicillin V potassium (VEETIDS) 250 mg/5 mL suspension Bring to office for oral graded dose challenge (Patient not taking: Reported on 06/23/2025) coenzyme Q10 (CO Q-10) 100 mg cap capsule Take 100 mg by mouth twice daily. potassium chloride (K-JENNIFER, KLOR-CON) 20 mEq packet Take 20 mEq by mouth twice daily. (Patient not taking: Reported on 06/23/2025) furosemide (LASIX) 40 mg tablet Take 40 mg by mouth twice daily. diltiazem CD (CARTIA XT) 120 mg 24 hr capsule Take 120 mg by mouth once daily. (Patient not taking: Reported on 06/23/2025) pravastatin (PRAVACHOL) 40 mg tablet Take 40 mg by mouth once daily. COMPOUNDED PRESCRIPTION If patient presents with allergic or anaphylactic reaction, draw a serum tryptase. Fax results to Dr. Hurd at [phone] albuterol HFA (PROVENTIL HFA, VENTOLIN HFA) 90 mcg/actuation inhaler Inhale 2 Puffs as instructed every 4 hours as needed (for cough, wheezing, chest tightness or shortness of breath. Use with spacer. ). (Patient not taking: Reported on 06/23/2025) EPINEPHrine (EPIPEN) 0.3 mg/0.3 mL auto-injector Inject 0.3 mL intramuscularly as needed (for allergic reaction.Seek emergent medical care immediately after use.Disp:one 2-pack w/staff trainer). MULTIVITAMIN TAB Take one(1) tablet daily. isosorbide mononitrate(IMDUR 30 MG 24 HR TAB) Take one(1) tablet daily. (Patient not taking: Reported on 06/23/2025) No current facility-administered medications for this visit. Allergies: Cephalosporins, Diovan Hct [Valsartan-Hydrochlorot hiazide], Iodine, Norflex [Orphenadrine], Toprol Xl [Metoprolol Succinate], Toradol [Ketorolac Tromethamine], and Unknown [Other] Social History: SOCIAL HISTORY[1] Family History: FAMILY HISTORY Problem Relation Age of Onset None Unknown REVIEW OF SYSTEMS: Constitutional: No recent fever or weight loss Skin: Denies itching, rashes, skin cancers or conditions Eyes: Denies complaints of blurred vision and diplopia, Does not use glasses or contact lenses ENMT: Denies dysphagia, tinnitis, vertigo and hearing loss, Does not use dentures Endocrine: Denies history of Type l or Type ll diabetes mellitus, Denies history of Thyroid disease CV: Denies history of chest pain, prior NH's, palpitations, heart failure, murmurs,, circulatory problems, leg swelling, admits HTN and HLD Respiratory: Denies history of paroxymal nocturnal dyspnea, recent cough, orthopnea, shortness of breath, COPD, emphysema, asthma, pneumonia, tuberculosis Gastrointestinal: Denies history of nausea, vomiting, diarrhea, constipation, ulcers, heartburn, abdominal pain Genitourinary: Denies hematuria, dysuria, kidney disease, sexual dysfunction, admits incontinence Musculoskeletal: admits back pain Neurological: Denies history of syncope, memory changes, or disorientation Denies complaint of headache Denies complaint of diplopia or decreased visual acuity Denies complaint of arm / leg numbness Denies problem with limb coordination Denies history of seizures and strokes Denies loss of consciousness or other neurologic disease Admits tremor Psychiatric: Denies history of hallucinations, depression, anxiety, substance abuse FOCUSED NEUROLOGIC EXAM Higher integrative function: Oriented to person, place and time, speech clear and fluent, fundi of knowledge good, accurate naming of objects CN II: Visual acuity normal, Visual woody full to confrontation, No APD noted on exam CN III, IV, : Pupils equal, round and reactive to light, full extraoccular movements, without nystagmus CN V: Facial sensation intact bilaterally to fine touch and pinprick, masseter 5/5 CN VII: Facial muscles symmetric and str (more content not included)... Normal [facility] CNOV Office Visit (NREUS2 ) ADOLFO RIVERA ([id number]) 1945 M Date Time Provider Department 06/23/25 10:00 AM MARVIN BLISS NRANTONIAS2 During your visit today, we recorded the following information about you: Pulse Blood pressure Weight 88/minute 119/67 119.3 kg Marvin Bliss MD 06/23/2025 11:38 AM Signed [facility] - NEW PATIENT EVALUATION Recording using [employer] software for draft documentation of the visit was discussed with the patient/authorized public utilities sales representative; all questions welcomed and answered. Patient/authorized public utilities sales representative agreed to proceed Primary Care Provider: Price Viera (Historical) Yanick (Inactive) [facility] [id number] Dear Price Viera (Historical) Yanikc (Inactive): I had the pleasure of evaluating Mr. Rivera in our clinic today. As you know he is a 79 year old right-handed male who presents for evaluation of fait problems since 2022. He is seen with and daughter. Subjective HISTORY OF PRESENT ILLNESS: Adolfo is an 79-year-old male with hypertension, hyperlipidemia, and a loop recorder in place, presenting for evaluation of worsening gait disturbance, tremor, and bowel incontinence. He is accompanied by his , who provides additional history. Adolfo?s reports progressive symptoms over the past 2 years, beginning with shuffling gait and a right hand tremor. She first noticed tremor in his lip, which she initially attributed to medication side effects. She brought him to the doctor when she observed shuffling gait and tremor, which she felt were not normal. The tremor is most noticeable when holding objects such as a cup or newspaper. She also reports that he is losing control of his bowels," though this has only occurred a couple of times. She notes that he sometimes tries to hide this from her by doing his own laundry. Over the past 6 months, he has had 4 falls, 2 of which required emergency room visits. He has been using a cane since the spring. His reports that he has had more tremors and breathing problems since the appointment was made. She also notes that he has lost his sense of where he is at times and has difficulty remembering names. He reports difficulty standing up from a chair and getting in and out of a vehicle. He also reports that it takes him longer to get dressed. His notes that his handwriting is worse than before. She also reports that his voice is softer, though she attributes this to hearing loss. He reports that his sense of smell is not as good as it used to be, though there has been no abrupt change recently. He denies problems with sleep, including talking or screaming in his sleep. He also denies hallucinations or visual illusions. He reports that his memory is "alright." He manages the household finances and denies any problems with this. He also reports that his driving is "good," though his notes that he has been weaving from the center line to the white line, which he never did before. He has not had any accidents. He reports that his mood is good and denies feeling down, depressed, or sad. He also denies problems with bladder control, though he does report more urgency. He has had lower back pain for the past 2 years, which occurs every day when standing. He has had MRI imaging of his back, which showed spinal stenosis. He has had injections for the pain, but they have not provided relief. He has a loop recorder in place, which was implanted 3 years ago. He has had 1 episode recorded, but no specific findings were reported. He takes medication for hypertension and hyperlipidemia. He denies any heart or lung problems. He has no biological children. His brother has myasthenia gravis, which he attributes to service in [place]. He denies any other family history of neurological problems. 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 - Brain MRI: Findings suggestive of hydrocephalus (extra CSF). - Lumbar spine MRI: Spinal stenosis. - Insertable court monitor (loop recorder): No specific arrhythmia documented to date. Addendum: Results reviewed directly with the patient; External documentation reviewed. Movement Disorders Medications Schedule - as of the start of the visit: Medications Questionnaires In addition, the following areas that may be affected by abnormal involuntary movements were evaluated: Daily activities Difficulties with eatin (none) Difficulties in dressin (none) Difficulties with hygiene activities: 0 (none) Difficulties with handwritin (none) Difficulties with doing hobbies and other activities: 0 (none) Difficulties turning in bed: 0 (none) Difficulties getting out of bed, car or chair: 0 (none) Tremors/Gait/Balance Shaking or tremors: 0 (none) Walking and balance problems: 0 (none) Number of falls in the Last Month: 0 Gait freezin (none) (more content not included)... Normal [facility] 06-23-2025 [facility] Telephone (NREUS2) ADOLFO RIVERA ([id number]) 1945 M Date Time Provider Department 06/23/25 MARVIN BLISS [id number] During your visit today, we recorded the following information about you: Herbert Montes De Oca 06/23/2025 11:31 AM Signed Skin biopsy BV form drafted in docusign. Waiting to attach OV notes. Herbert Montes De Oca 06/24/2025 10:31 AM Signed OV notes attached and sent. Herbert Montes De Oca 07/02/2025 9:45 AM Signed OOP cost for lab is $0. BV is available in scanned documents. Allergies As of Date: 06/23/2025 Noted Allergy Reaction CEPHALOSPORINS 08/30/2017 10 - Anaphylaxis DIOVAN HCT (VALSARTAN-HYDROCHLORO* 01/29/2009 IODINE 01/29/2009 2 - Rash Comments: Possible, patient had reaction once, unknown if iodine caused the reaction. NORFLEX (ORPHENADRINE) 08/30/2017 10 - Anaphylaxis Comments: On 05/17/17, patient developed respiratory failure within 30 minutes of treatment with ceftriaxone, Toradol and orphenadrine. TOPROL XL (METOPROLOL SUCCINATE) 08/30/2017 2 - Rash TORADOL (KETOROLAC TROMETHAMINE) 08/30/2017 10 - Anaphylaxis Comments: On 05/17/17, patient developed respiratory failure within 30 minutes of treatment with ceftriaxone, Toradol and orphenadrine. unknown [Other] 01/29/2009 Comments: Heart medication, given by Dr. Maldonado caused rash. Date Reviewed: 06/23/2025 Reviewed by: Lala Chandler MA - Fully Assessed Reason for Visit: [employer] [Other] Cmt: Skin Biopsy Prescriptions as of 07/02/2025 - ELIQUIS 5 mg tab(s) - penicillin V potassium (VEETIDS) 250 mg/5 mL suspension Bring to office for oral graded dose challenge - coenzyme Q10 (CO Q-10) 100 mg cap capsule Take 100 mg by mouth twice daily. - potassium chloride (K-JENNIFER, KLOR-CON) 20 mEq packet Take 20 mEq by mouth twice daily. - furosemide (LASIX) 40 mg tablet Take 40 mg by mouth twice daily. - diltiazem CD (CARTIA XT) 120 mg 24 hr capsule Take 120 mg by mouth once daily. - pravastatin (PRAVACHOL) 40 mg tablet Take 40 mg by mouth once daily. - COMPOUNDED PRESCRIPTION If patient presents with allergic or anaphylactic reaction, draw a serum tryptase. Fax results to Dr. Hurd at [phone] - albuterol HFA (PROVENTIL HFA, VENTOLIN HFA) 90 mcg/actuation inhaler Inhale 2 Puffs as instructed every 4 hours as needed (for cough, wheezing, chest tightness or shortness of breath. Use with spacer. ). - EPINEPHrine (EPIPEN) 0.3 mg/0.3 mL auto-injector Inject 0.3 mL intramuscularly as needed (for allergic reaction.Seek emergent medical care immediately after use.Disp:one 2-pack w/staff trainer). - MULTIVITAMIN TAB Take one(1) tablet daily. - isosorbide mononitrate(IMDUR 30 MG 24 HR TAB) Take one(1) tablet daily. Problem List As Of Date 06/23/2025 Noted Resolved SKIN DISORDER NOS [L98.9] 06/06/2007 Encounter Status:Closed by HERBERT MONTES DE OCA on 06/23/25 Normal [facility] Venous Duplex US, Unilateral on 06-12-2025 Venous Duplex US, Unilateral [facility] [address] [place] [address] Venous Duplex US, Unilateral 06/12/25 0958 MR#: [id number] Acct: [id number] Name: ADOLFO RIVERA Rep #: [id number] : 1945 79 From: Vincenzo Lambert MD Attending Dr: Dr. Price Herndon MD Status: REG CLI Ordering Dr: Price Herndon MD Date: 06/12/25 Location: [facility] Sex: M C Admitted: Reason For Study Reason For Study: Right leg pain RIGHT LEFT GSV is normal. CFV is compressible, spontaneous, phasic, competent, Acute deep vein thrombosis is noted in the CFV, FV, and demonstrates normal augmentation. Pop V, and T/P Trunk. They are dilated and NONCOMPRESSIBLE. PTV is compressible. RT PerV is compressible. Procedure This is a venous duplex using B-mode, color flow and spectral Doppler. Exam performed in department. A preliminary report was called and/or faxed to Price Herndon MD. VL/Venous Duplex US, Unilateral Interpretation Summary Acute deep vein thrombosis is noted in the right common femoral vein. Acute deep vein thrombosis is noted in the right femoral vein. Acute deep vein thrombosis is noted in the right popliteal vein. Acute deep vein thrombosis is noted in the right tibio-peroneal trunk. The right posterior tibial vein and peroneal vein are patent and compressible. The right great saphenous vein appears patent and compressible segmentally. The left common femoral vein is patent and compressible . Ordering Physician: Price Herndon Chi Referring Physician: Price Herndon Chi Performed By: Maya Garvey RVT 06/12/25 1307 Date Vincenzo Lambert MD CC: Dr. Price Herndon MD Date Dictated: 06/12/25957 Date Transcribed: 06/12/25 1307 Set Off Blocker: Signed Normal [facility] Venous duplex ultrasound rep ortOrdered By: Vincenzo Lambert on 06-12-2025 US Vein [facility] [address] [place] [address] Venous Duplex US, Unilateral 06/12/25957 MR#: [id number] Acct: [id number] Name: ADOLFO RIVERA Rep #:[id number] : 1945 79 From: Vincenzo Lambert MD Attending Dr: Dr. Price Herndon MD Status: REG CLI Ordering Dr: Price Herndon MD Date: Location: [facility] Sex: M C Admitted: Reason For Study Reason For Study: Right leg pain RIGHT LEFT GSV is normal. CFV is compressible, spontaneous, phasic, competent, Acute deep vein thrombosis is noted in the CFV, FV, and demonstrates normal augmentation. Pop V, and T/P Trunk. They are dilated and NONCOMPRESSIBLE. PTV is compressible. RT PerV is compressible. Procedure This is a venous duplex using B-mode, color flow and spectral Doppler. Exam performed in department. A preliminary report was called and/or faxed to Price Herndon MD. VL/Venous Duplex US, Unilateral Interpretation Summary Acute deep vein thrombosis is noted in the right common femoral vein. Acute deepvein thrombosis is noted in the right femoral vein. Acute deep vein thrombosis is noted in the right popliteal vein. Acute deep vein thrombosis is noted in the right tibio-peroneal trunk. The right posterior tibial vein and peroneal vein are patent and compressible. The right great saphenous vein appears patent and compressible segmentally. The left common femoral vein is patent and compressible . Ordering Physician: Price Herndon Chi Referring Physician: Price Herndon Chi Performed By: Maya Garvey RVT 06/12/25 1307 Date _ Vincenzo Lambert MD CC: Dr. Price Herndon MD ~ Date Dictated: 06/12/25957 Date Transcribed: 06/12/251306 Set Off Blocker: Signed [facility] Work Phone: Plastic Surgery Visit Report on 05-09-2025 Plastic Surgery Visit Report [facility] [address], [address] [place] [address] OFFICE VISIT Date of Service: 05/09/25 MR#: [id number] Acct: [id number] Name: ADOLFO RIVERA Rep #: [id number] : 1945 Provider: Dr. Sushil Stafford MD Age/Sex: 79/M Location: [facility] Status: Signed Intake Vital Signs 04/07/25 17:03 05/09/25 10:37 Height 5 ft 10 in BP 147/74 H Blood Pressure Location Rt brachial Position Sitting Respiration 18 Pulse 97 Pulse Source Monitor Pulse Oximetry (%) 94 Oxygen Delivery Method room air Intake Visit Reasons: FOLLOW UP Chief Complaint: post op Is patient in pain?: No Allergies Beta-Blockers (Beta-Adrenergic Bloc Allergy (Severe, Verified 05/09/25 10:36) Hives ceftriaxone (From Rocephin) Allergy (Severe, Verified 05/09/25 10:36) Anaphylaxis ciprofloxacin (From Cipro) Allergy (Severe, Verified 05/09/25 10:36) Anaphylaxis hydralazine Allergy (Severe, Verified 05/09/25 10:36) Swelling- eyes, feet Iodinated Contrast Media (CONTRASTS) Allergy (Verified 05/09/25 10:36) Hives iodine Allergy (Verified 05/09/25 10:36) Hives NAHUM Inhibitors Adverse Reaction (Severe, Verified 05/09/25 10:36) Swelling amlodipine Adverse Reaction (Severe, Verified 05/09/25 10:36) Edema,legs clonidine Adverse Reaction (Severe, Verified 05/09/25 10:36) RAsh valsartan (From Effective Measurevan) Adverse Reaction (Severe, Verified 05/09/25 10:36) RAsh Medications ???Medication ???Instructions ???Recorded ???Confirmed ???Type coenzyme Q10 100 mg capsule 100 mg PO DAILY SUPPLEMENT 7 05/09/25 History glucosamine HCl 1,500 mg tablet 1,500 mg PO QDAY SUPPLEMENT 05/09/25 History isosorbide mononitrate 60 mg 60 mg PO DAILY HEART #90 tabs 12/2505/09/25 Rx tablet,extended release 24 hr multivitamin 1 tab PO DAILY SUPPLEMENT 09/05/22 05/09/25 History acetaminophen 500 mg tablet 1,000 mg (2 x 500 mg) PO Q6H PRN 0 04/19/23 05/09/25 Rx #100 tabs potassium chloride 20 mEq 20 meq PO DAILY #90 TABLETS 05/09/25 Rx tablet,extended release(part/cryst) doxazosin 4 mg tablet 4 mg PO QHS BP #90 tabs 11/27/24 0 05/09/25 Rx pravastatin 40 mg tablet 40 mg PO QHS CHOLESTEROL #90 tabs 11/27/24 05/09/25 Rx diltiazem HCl 120 mg 120 mg PO QDAY 03/20/25 05/09/25 H istory capsule,extended release 24 hr finasteride 5 mg tablet 5 mg PO QDAY 03/20/25 05/09/25 His tory furosemide 40 mg tablet 40 mg PO QDAY 03/20/25 05/09/25 Hi story nitroglycerin 0.4 mg sublingual 0.4 mg sublingual Q5M PRN cp #25 0 03/20/25 05/09/25 Rx tablet tabs Have you fallen in the past year?: No Subjective Details: Procedure Procedure performed: 1) Excision lesion, 4.3 x 4 cm, right lateral elbow area (CPT 80132), with 6 mm margins around the clinically evident lesion 2) Intermediate closure, 4.3 cm, right lateral elbow (CPT 03169) MICROSCOPIC DIAGNOSIS A. Skin, elbow, right, excision: - Invasive squamous cell carcinoma, well-differentiated keratoacanthomatous type, surgical margins free ??? see note. - Tumor invades the reticular dermis to a depth of 1.5 mm (with respect to the adjacent normal epidermis). - No lymphovascular space or perineural invasion observed Follow-up: Patient here today for follow-up after above-noted procedure and the above-noted pathology. It was an invasive well-differentiated squamous cell carcinoma. Reviewed pathology with the patient today. 6 mm margins were obtained and therefore with clear surgical margins, we are adequately treated. Current encounter, 09 May 2025: Doing well. Sutures removed. No problems with the scar site Objective Details: Right elbow incision clean dry and intact No drainage Sutures in place and were removed without difficulty Healed well Coding Level of Care Code Global Post Op Diagnoses Neoplasm of uncertain behavior of skin D48.5 [facility] Medical History Implantable loop recorder present Wears hearing aid Wears partial dentures Arthritis Back pain Gastric reflux Non-smoker Shortness of breath on exertion History of pain when walking History of edema History of echocardiogram History of stress test Hypertension Cardiology follow-up encounter Syncope Pure hypercholesterolemia Essential hypertension Hiatal hernia Asthma Atherosclerotic heart disease of [place] coronary artery without angina pectoris Long-term use of high-risk medication Acute respiratory failure with hypoxia Nonsustained ventricular tachycardia PVC (premature ventricular contraction) PAC (premature atrial contraction) Obesity (BMI 30-39.9) Surgical History History of loop recorder Hx of colonosco (more content not included)... Normal [facility] Plastic Surgery Visit Report on 05-01-2025 Plastic Surgery Visit Report [facility] [address], [address] [place], [place] [address] OFFICE VISIT Date of Service: 05/01/25 MR#: [id number] Acct: [id number] Name: ADOLFO RIVERA Rep #: [id number] : 1945 Provider: Dr. Sushil Stafford MD Age/Sex: 79/M Location: [facility] Status: Signed Intake Vital Signs 04/07/25 17:03 05/01/25 10:25 Height 5 ft 10 in Weight: 267 lb BMI 38.2 BP 145/73 H Blood Pressure Location Lt brachial Position Sitting Respiration 18 Pulse 81 Pulse Source Monitor Pulse Oximetry (%) 96 Oxygen Delivery Method room air Intake Visit Reasons: post op Chief Complaint: post op Is patient in pain?: No Allergies Beta-Blockers (Beta-Adrenergic Bloc Allergy (Severe, Verified 05/01/25 10:24) Hives ceftriaxone (From Rocephin) Allergy (Severe, Verified 05/01/25 10:24) Anaphylaxis ciprofloxacin (From Cipro) Allergy (Severe, Verified 05/01/25 10:24) Anaphylaxis hydralazine Allergy (Severe, Verified 05/01/25 10:24) Swelling- eyes, feet Iodinated Contrast Media (CONTRASTS) Allergy (Verified 05/01/25 10:24) Hives iodine Allergy (Verified 05/01/25 10:24) Hives NAHUM Inhibitors Adverse Reaction (Severe, Verified 05/01/25 10:24) Swelling amlodipine Adverse Reaction (Severe, Verified 05/01/25 10:24) Edema,legs clonidine Adverse Reaction (Severe, Verified 05/01/25 10:24) RAsh valsartan (From Diovan) Adverse Reaction (Severe, Verified 05/01/25 10:24) RAsh Medications ???Medication ???Instructions ???Recorded ???Confirmed ???Type coenzyme Q10 100 mg capsule 100 mg PO DAILY SUPPLEMENT 7 05/01/25 History glucosamine HCl 1,500 mg tablet 1,500 mg PO QDAY SUPPLEMENT 05/01/25 History isosorbide mononitrate 60 mg 60 mg PO DAILY HEART #90 tabs 12/2505/01/25 Rx tablet,extended release 24 hr multivitamin 1 tab PO DAILY SUPPLEMENT 09/05/22 05/01/25 History acetaminophen 500 mg tablet 1,000 mg (2 x 500 mg) PO Q6H PRN 0 04/19/23 05/01/25 Rx #100 tabs potassium chloride 20 mEq 20 meq PO DAILY #90 TABLETS 05/01/25 Rx tablet,extended release(part/cryst) doxazosin 4 mg tablet 4 mg PO QHS BP #90 tabs 11/27/24 0 05/01/25 Rx pravastatin 40 mg tablet 40 mg PO QHS CHOLESTEROL #90 tabs 11/27/24 05/01/25 Rx diltiazem HCl 120 mg 120 mg PO QDAY 03/20/25 05/01/25 H istory capsule,extended release 24 hr finasteride 5 mg tablet 5 mg PO QDAY 03/20/25 05/01/25 His tory furosemide 40 mg tablet 40 mg PO QDAY 03/20/25 05/01/25 Hi story nitroglycerin 0.4 mg sublingual 0.4 mg sublingual Q5M PRN cp #25 0 03/20/25 05/01/25 Rx tablet tabs Have you fallen in the past year?: No Subjective Details: Procedure Procedure performed: 1) Excision lesion, 4.3 x 4 cm, right lateral elbow area (CPT 65292), with 6 mm margins around the clinically evident lesion 2) Intermediate closure, 4.3 cm, right lateral elbow (CPT 95386) MICROSCOPIC DIAGNOSIS A. Skin, elbow, right, excision: - Invasive squamous cell carcinoma, well-differentiated keratoacanthomatous type, surgical margins free ??? see note. - Tumor invades the reticular dermis to a depth of 1.5 mm (with respect to the adjacent normal epidermis). - No lymphovascular space or perineural invasion observed Follow-up: Patient here today for follow-up after above-noted procedure and the above-noted pathology. It was an invasive well-differentiated squamous cell carcinoma. Reviewed pathology with the patient today. 6 mm margins were obtained and therefore with clear surgical margins, we are adequately treated. Objective Details: Right elbow incision clean dry and intact No drainage Sutures in place Coding Level of Care Code Global Post Op Diagnoses Neoplasm of uncertain behavior of skin D48.5 [facility] Medical History Implantable loop recorder present Wears hearing aid Wears partial dentures Arthritis Back pain Gastric reflux Non-smoker Shortness of breath on exertion History of pain when walking History of edema History of echocardiogram History of stress test Hypertension Cardiology follow-up encounter Syncope Pure hypercholesterolemia Essential hypertension Hiatal hernia Asthma Atherosclerotic heart disease of [place] coronary artery without angina pectoris Long-term use of high-risk medication Acute respiratory failure with hypoxia Nonsustained ventricular tachycardia PVC (premature ventricular contraction) PAC (premature atrial contraction) Obesity (BMI 30-39.9) Surgical History History of loop recorder Hx of colonoscopy History of cataract extraction History of cholecystectomy History of carpal tunnel surgery Family History (more content not included)... Normal [facility] Surgical pathology reportOrd ered By: Zamzam Browne on 04-28-2025 Surgical pathology study [facility] Plastic Surgery Visit Report on 04-23-2025 Plastic Surgery Visit Report [facility] [address], [address] [place] [address] OFFICE VISIT Date of Service: 04/23/25 MR#: [id number] Acct: [id number] Name: ADOLFO RIVERA Rep #: [id number] : 1945 Provider: Dr. Sushil Stafford MD Age/Sex: 79/M Location: [facility] Status: Signed with Addenda ADDENDUM by Dr. Sushil Stafford MD on 05/01/25 at 1456 Assessment and Plan (No Qualifiers) Assessment and Plan (1) Neoplasm of uncertain behavior of skin: Status: Acute Comment: Right elbow Well-differentiated squamous cell carcinoma completely excised summer 2024 with 6 mm margins. Margins free Plan "Benign" entered in error This was a malignant squamous cell carcinoma 05/01/25 1456 Date Sushil Stafford MD cc: * Signed Intake Vital Signs 04/07/25 17:03 04/23/25 15:14 Height 5 ft 10 in Weight: 267 lb BMI 38.2 BP 127/75 H Blood Pressure Location Rt brachial Position Sitting Respiration 18 Pulse 83 Pulse Source Monitor Pulse Oximetry (%) 92 Oxygen Delivery Method room air Intake Visit Reasons: in office procedure Chief Complaint: in office procedure Is patient in pain?: No Allergies Beta-Blockers (Beta-Adrenergic Bloc Allergy (Severe, Verified 04/23/25 15:13) Hives ceftriaxone (From Rocephin) Allergy (Severe, Verified 04/23/25 15:13) Anaphylaxis ciprofloxacin (From Cipro) Allergy (Severe, Verified 04/23/25 15:13) Anaphylaxis hydralazine Allergy (Severe, Verified 04/23/25 15:13) Swelling- eyes, feet Iodinated Contrast Media (CONTRASTS) Allergy (Verified 04/23/25 15:13) Hives iodine Allergy (Verified 04/23/25 15:13) Hives NAHUM Inhibitors Adverse Reaction (Severe, Verified 04/23/25 15:13) Swelling amlodipine Adverse Reaction (Severe, Verified 04/23/25 15:13) Edema,legs clonidine Adverse Reaction (Severe, Verified 04/23/25 15:13) RAsh valsartan (From Diovan) Adverse Reaction (Severe, Verified 04/23/25 15:13) RAsh Medications ???Medication ???Instructions ???Recorded ???Confirmed ???Type coenzyme Q10 100 mg capsule 100 mg PO DAILY SUPPLEMENT 7 04/23/25 History glucosamine HCl 1,500 mg tablet 1,500 mg PO QDAY SUPPLEMENT 04/23/25 History isosorbide mononitrate 60 mg 60 mg PO DAILY HEART #90 tabs /03/1204/23/25 Rx tablet,extended release 24 hr multivitamin 1 tab PO DAILY SUPPLEMENT 09/05/22 04/23/25 History acetaminophen 500 mg tablet 1,000 mg (2 x 500 mg) PO Q6H PRN 0 04/19/23 04/23/25 Rx #100 tabs potassium chloride 20 mEq 20 meq PO DAILY #90 TABLETS 04/23/25 Rx tablet,extended release(part/cryst) doxazosin 4 mg tablet 4 mg PO QHS BP #90 tabs 11/27/24 0 04/23/25 Rx pravastatin 40 mg tablet 40 mg PO QHS CHOLESTEROL #90 tabs 11/27/24 04/23/25 Rx clindamycin HCl 300 mg capsule 600 mg (2 x 300 mg) PO ONCE #2 cap s 03/20/25 04/23/25 Rx diltiazem HCl 120 mg 120 mg PO QDAY 03/20/25 04/23/25 H istory capsule,extended release 24 hr finasteride 5 mg tablet 5 mg PO QDAY 03/20/25 04/23/25 His tory furosemide 40 mg tablet 40 mg PO QDAY 03/20/25 04/23/25 Hi story nitroglycerin 0.4 mg sublingual 0.4 mg sublingual Q5M PRN cp #25 0 03/20/25 04/23/25 Rx tablet tabs Have you fallen in the past year?: No PFSH Medical History Implantable loop recorder present Wears hearing aid Wears partial dentures Arthritis Back pain Gastric reflux Non-smoker Shortness of breath on exertion History of pain when walking History of edema History of echocardiogram History of stress test Hypertension Cardiology follow-up encounter Syncope Pure hypercholesterolemia Essential hypertension Hiatal hernia Asthma Atherosclerotic heart disease of [place] coronary artery without angina pectoris Long-term use of high-risk medication Acute respiratory failure with hypoxia Nonsustained ventricular tachycardia PVC (premature ventricular contraction) PAC (premature atrial contraction) Obesity (BMI 30-39.9) Surgical History History of loop recorder Hx of colonoscopy History of cataract extraction History of cholecystectomy History of carpal tunnel surgery Family History Mother CAD (coronary artery disease) Myocardial infarction Father CAD (coronary artery disease) Myocardial infarction Brother CAD (coronary artery disease) Hx of CABG Brother CAD (coronary artery disease) Social History Smoking Status: Never smoker alcohol intake: current details: occasional substance use type: does not use ca (more content not included)... Normal [facility] Surgery Specimen Level Cesilia 04-23-2025 Surgery Specimen Level IV Patient Age/Sex Location Account Attending Physician ADOLFO RIVERA 79/M [facility]SPEC [id number] Dr. Sushil Stafford MD Specimen: [id number] Received: 04/23/25 Status: BHANU Naylorclaire Num: [id number] Spec Type: Lesion Subm Dr: Dr. Sushil Stafford MD HEADER OPERATION: Right elbow lesion excision and closure PRE-OP DIAGNOSIS: Right elbow lesion TISSUE SUBMITTED: A- Right elbow lesion MICROSCOPIC DIAGNOSIS A. Skin, elbow, right, excision: - Invasive squamous cell carcinoma, well-differentiated keratoacanthomatous type, surgical margins free - see note. - Tumor invades the reticular dermis to a depth of 1.5 mm (with respect to the adjacent normal epidermis). - No lymphovascular space or perineural invasion observed. Note: Focal dermal fibrosis with foreign body material, consistent with scar, is noted focally at the 6-9 o'clock surgical margin, that is distinctly separate from the squamous cell carcinoma. MICROSCOPIC DESCRIPTION Slides are reviewed. GROSS DESCRIPTION A. Received in formalin labeled with the patient's name and date of . Designated as "right elbow lesion" is a 3.7 x 2.9 cm agarwal skin ellipse excised to a depth ranging from 0.3 cm to 0.7 cm cm and with orientation as follows:Single suture: designated as 12:00 (proximal).Double suture: designated as 3:00.Triple suture: designated as 6:00. There is a 2.2 x 2.1 x 0.5 cm aagrwal-pink to white, raised, firm and centrally soft mass with irregular borders, located the following distances from the margins:12:00: 0.9 cm 3:00: 0.4 cm 6:00: 1.0 cm9:00: 0.5 cmDeep: 0.2 cm Ink granado: 12:00 to 3:00: Green3:00 to 6:00: Yellow6:00 to 9:00: Orange9:00 to 12:00: BlueDeep: Black The specimen is serially sectioned from 12:00 to 6:00 revealing that the lesion grossly extends into the underlying soft tissue. The specimen is entirely submitted, sequentially, in 7 cassettes. [place] 04/24/2025 CPT:29743 Patient Age/Sex Location Account Attending Physician ADOLFO RIVERA 79/M [facility] [id number] Dr. Sushil Stafford MD Signed (signature on file) Dr. Zamzam Browne MD 04/28/25 1204 Normal [facility] Comment on above: Performed By: #### L 500.4050, L501.9520, L100.0100, L506.1001 #### [facility] Laboratory [address] [place], [place], [address] Plastic Surgery Visit Report on 04-07-2025 Plastic Surgery Visit Report [facility] [address], [address] [place] [address] OFFICE VISIT Date of Service: 04/07/25 MR#: [id number] Acct: [id number] Name: ADOLFO RIVERA Rep #: [id number] : 1945 Provider: Dr. Sushil Stafford MD Age/Sex: 79/M Location: [facility] Status: Signed Intake Vital Signs 3 03/20/25 08:26 04/07/25 17:03 Height 5 ft 10 in 5 ft 10 in Weight: 266 lb 267 lb BMI 38.1 38.2 BP 112/70 Blood Pressure Location Lt brachial Position Sitting Respiration 18 Pulse 47 L Pulse Source Monitor Intake Visit Reasons: SCC R ELBOW Chief Complaint: scc r elbow Is patient in pain?: Yes (-03/04) Allergies Beta-Blockers (Beta-Adrenergic Bloc Allergy (Severe, Verified 03/20/25 08:34) Hives ceftriaxone (From Rocephin) Allergy (Severe, Verified 03/20/25 08:34) Anaphylaxis ciprofloxacin (From Cipro) Allergy (Severe, Verified 03/20/25 08:34) Anaphylaxis hydralazine Allergy (Severe, Verified 03/20/25 08:34) Swelling- eyes, feet Iodinated Contrast Media (CONTRASTS) Allergy (Verified 03/20/25 08:34) Hives iodine Allergy (Verified 03/20/25 08:34) Hives NAHUM Inhibitors Adverse Reaction (Severe, Verified 03/20/25 08:34) Swelling amlodipine Adverse Reaction (Severe, Verified 03/20/25 08:34) Edema,legs clonidine Adverse Reaction (Severe, Verified 03/20/25 08:34) RAsh valsartan (From Diovan) Adverse Reaction (Severe, Verified 03/20/25 08:34) RAsh Medications 3 ???Medication ???Instructions ???Recorded ???Confirmed ???Type coenzyme Q10 100 mg capsule 100 mg PO DAILY SUPPLEMENT 7 04/07/25 History glucosamine HCl 1,500 mg tablet 1,500 mg PO QDAY SUPPLEMENT 04/07/25 History isosorbide mononitrate 60 mg 60 mg PO DAILY HEART #90 tabs /03/1204/07/25 Rx tablet,extended release 24 hr multivitamin 1 tab PO DAILY SUPPLEMENT 09/05/22 04/07/25 History acetaminophen 500 mg tablet 1,000 mg (2 x 500 mg) PO Q6H PRN 0 04/19/23 04/07/25 Rx #100 tabs potassium chloride 20 mEq 20 meq PO DAILY #90 TABLETS 04/07/25 Rx tablet,extended release(part/cryst) doxazosin 4 mg tablet 4 mg PO QHS BP #90 tabs 11/27/24 0 04/07/25 Rx pravastatin 40 mg tablet 40 mg PO QHS CHOLESTEROL #90 tabs 11/27/24 04/07/25 Rx clindamycin HCl 300 mg capsule 600 mg (2 x 300 mg) PO ONCE #2 cap s 03/20/25 04/07/25 Rx diltiazem HCl 120 mg 120 mg PO QDAY 03/20/25 04/07/25 H istory capsule,extended release 24 hr finasteride 5 mg tablet 5 mg PO QDAY 03/20/25 04/07/25 His tory furosemide 40 mg tablet 40 mg PO QDAY 03/20/25 04/07/25 Hi story nitroglycerin 0.4 mg sublingual 0.4 mg sublingual Q5M PRN cp #25 0 03/20/25 04/07/25 Rx tablet tabs Have you fallen in the past year?: Yes (hit elbow) [facility] Medical History Implantable loop recorder present Wears hearing aid Wears partial dentures Arthritis Back pain Gastric reflux Non-smoker Shortness of breath on exertion History of pain when walking History of edema History of echocardiogram History of stress test Hypertension Cardiology follow-up encounter Syncope Pure hypercholesterolemia Essential hypertension Hiatal hernia Asthma Atherosclerotic heart disease of [place] coronary artery without angina pectoris Long-term use of high-risk medication Acute respiratory failure with hypoxia Nonsustained ventricular tachycardia PVC (premature ventricular contraction) PAC (premature atrial contraction) Obesity (BMI 30-39.9) Surgical History History of loop recorder Hx of colonoscopy History of cataract extraction History of cholecystectomy History of carpal tunnel surgery Family History Mother CAD (coronary artery disease) Myocardial infarction Father CAD (coronary artery disease) Myocardial infarction Brother CAD (coronary artery disease) Hx of CABG Brother CAD (coronary artery disease) Social History Smoking Status: Never smoker alcohol intake: current details: occasional substance use type: does not use caffeine: Yes Type: coffee Number of servings: 3 HPI SCC R ELBOW Details: The patient is an 79-year-old male presenting with a rapidly growing skin mass on the right dorsal elbow. The mass has been present for approximately three weeks and has grown significantly in size during this period. The patient reports that the mass is painful and appears to have a tentacle-like appearance. There is no history of trauma to the area, although the patient had a previous fall in November, which did not affect the current site of the mass. The patien (more content not included)... Normal [facility] 03-21-2025 [facility] Telephone (NREUS2) ADOLFO RIVERA ([id number]) 1945 M Date Time Provider Department 03/21/25 JOHN TOLLIVER NREUS2 During your visit today, we recorded the following information about you: [facility] 03/21/2025 10:21 AM Signed Referral received from Dr. Jolly Herndon/Adult Geriatrics [facility] for NPH (copy in scanned docs). Doron Olivarez RN 03/21/2025 10:29 AM Signed Triaged, message sent to lead front desk agent requesting patient be contact to schedule movement/nsgy consult. Asked that they request patient bring all brain imaging to upcoming appointments. Doron Olivarez RN Allergies As of Date: 03/21/2025 Noted Allergy Reaction CEPHALOSPORINS 08/30/2017 10 - Anaphylaxis DIOVAN HCT (VALSARTAN-HYDROCHLORO* 01/29/2009 IODINE 01/29/2009 2 - Rash Comments: Possible, patient had reaction once, unknown if iodine caused the reaction. NORFLEX (ORPHENADRINE) 08/30/2017 10 - Anaphylaxis Comments: On 05/17/17, patient developed respiratory failure within 30 minutes of treatment with ceftriaxone, Toradol and orphenadrine. TOPROL XL (METOPROLOL SUCCINATE) 08/30/2017 2 - Rash TORADOL (KETOROLAC TROMETHAMINE) 08/30/2017 10 - Anaphylaxis Comments: On 05/17/17, patient developed respiratory failure within 30 minutes of treatment with ceftriaxone, Toradol and orphenadrine. unknown [Other] 01/29/2009 Comments: Heart medication, given by Dr. Maldonado caused rash. Date Reviewed: 09/07/2017 Reviewed by: Henrietta Swain (Rn), RN - Fully Assessed Reason for Visit: NPH Referral/Dr. Jolly Herndon [Other] Prescriptions as of 03/21/2025 - penicillin V potassium (VEETIDS) 250 mg/5 mL suspension Bring to office for oral graded dose challenge - coenzyme Q10 (CO Q-10) 100 mg cap capsule Take 100 mg by mouth twice daily. - potassium chloride (K-JENNIFER, KLOR-CON) 20 mEq packet Take 20 mEq by mouth twice daily. - furosemide (LASIX) 40 mg tablet Take 40 mg by mouth twice daily. - diltiazem CD (CARTIA XT) 120 mg 24 hr capsule Take 120 mg by mouth once daily. - pravastatin (PRAVACHOL) 40 mg tablet Take 40 mg by mouth once daily. - COMPOUNDED PRESCRIPTION If patient presents with allergic or anaphylactic reaction, draw a serum tryptase. Fax results to Dr. Hurd at [phone] - albuterol HFA (PROVENTIL HFA, VENTOLIN HFA) 90 mcg/actuation inhaler Inhale 2 Puffs as instructed every 4 hours as needed (for cough, wheezing, chest tightness or shortness of breath. Use with spacer. ). - EPINEPHrine (EPIPEN) 0.3 mg/0.3 mL auto-injector Inject 0.3 mL intramuscularly as needed (for allergic reaction.Seek emergent medical care immediately after use.Disp:one 2-pack w/staff trainer). - MULTIVITAMIN TAB Take one(1) tablet daily. - isosorbide mononitrate(IMDUR 30 MG 24 HR TAB) Take one(1) tablet daily. Problem List As Of Date 03/21/2025 Noted Resolved SKIN DISORDER NOS [L98.9] 06/06/2007 Encounter Status:Closed by DORON OLIVAREZ on 03/21/25 Normal [facility] Cardiology Visit Reporton Cardiology Visit Report [facility] Heart [address] [place] [address] OFFICE VISIT Date of Service: 03/20/25 MR#: [id number] Acct: [id number] Name: ADOLFO RIVERA Rep #: [id number] : 1945 Provider: ZULEMA Paiz Age/Sex: 79/M Location: [facility] [place] Status: Signed HPI HPI History of Present Illness Details: Adolfo Rivera is a 79-year-old white male with a history of CAD-known angiographically significant, cardiac ectopy with PACs/PVCs and nonsustained VT, hyperlipidemia, and hypertension. He did undergo a stress test (2022) which was negative. Echocardiogram (2022) demonstrated an EF of 55%. He did have a syncopal event in 2022 and does have a loop recorder placed. He was recently diagnosed with hydrocephulus. He will is being referred to a neurosurgeon in [place]. notes that he has edema and does not know if he talked with anyone about this. He does have balance problems. He will be having a pain injection. Intake Vital Signs 02/21/24 09:20 03/20/25 08:26 Height 5 ft 10 in 5 ft 10 in Weight: 266 lb BMI 38.1 BP 112/70 Blood Pressure Location Lt brachial Position Sitting Respiration 18 Pulse 47 L Pulse Source Monitor Intake Visit Reasons: 1 Y FU Flight Reservations Manager Required: No Accompanied by: Is patient in pain?: No Allergies Beta-Blockers (Beta-Adrenergic Bloc Allergy (Severe, Verified 03/20/25 08:34) Hives ceftriaxone (From Rocephin) Allergy (Severe, Verified 03/20/25 08:34) Anaphylaxis ciprofloxacin (From Cipro) Allergy (Severe, Verified 03/20/25 08:34) Anaphylaxis hydralazine Allergy (Severe, Verified 03/20/25 08:34) Swelling- eyes, feet Iodinated Contrast Media (CONTRASTS) Allergy (Verified 03/20/25 08:34) Hives iodine Allergy (Verified 03/20/25 08:34) Hives NAHUM Inhibitors Adverse Reaction (Severe, Verified 03/20/25 08:34) Swelling amlodipine Adverse Reaction (Severe, Verified 03/20/25 08:34) Edema,legs clonidine Adverse Reaction (Severe, Verified 03/20/25 08:34) RAsh valsartan (From Diovan) Adverse Reaction (Severe, Verified 03/20/25 08:34) RAsh Medications ???Medication ???Instructions ???Recorded ???Confirmed ???Type coenzyme Q10 100 mg capsule 100 mg PO DAILY SUPPLEMENT 7 03/20/25 History glucosamine HCl 1,500 mg tablet 1,500 mg PO QDAY SUPPLEMENT 03/20/25 History isosorbide mononitrate 60 mg 60 mg PO DAILY HEART #90 tabs 03/1203/20/25 Rx tablet,extended release 24 hr multivitamin 1 tab PO DAILY SUPPLEMENT 09/05/22 03/20/25 History acetaminophen 500 mg tablet 1,000 mg (2 x 500 mg) PO Q6H PRN 0 04/19/23 03/20/25 Rx #100 tabs potassium chloride 20 mEq 20 meq PO DAILY #90 TABLETS 03/20/25 Rx tablet,extended release(part/cryst) doxazosin 4 mg tablet 4 mg PO QHS BP #90 tabs 11/27/24 0 03/20/25 Rx pravastatin 40 mg tablet 40 mg PO QHS CHOLESTEROL #90 tabs 11/27/24 03/20/25 Rx clindamycin HCl 300 mg capsule 600 mg (2 x 300 mg) PO ONCE #2 cap s 03/20/25 03/20/25 Rx diltiazem HCl 120 mg 120 mg PO QDAY 03/20/25 03/20/25 H istory capsule,extended release 24 hr finasteride 5 mg tablet 5 mg PO QDAY 03/20/25 03/20/25 His tory furosemide 40 mg tablet 40 mg PO QDAY 03/20/25 03/20/25 Hi story nitroglycerin 0.4 mg sublingual 0.4 mg sublingual Q5M PRN cp #25 0 03/20/25 03/20/25 Rx tablet tabs Ejection fraction %: 60 Have you fallen in the past year?: Yes (3 in november tripped (dx: hydrocephalus)) [facility] Medical History Implantable loop recorder present Wears hearing aid Wears partial dentures Arthritis Back pain Gastric reflux Non-smoker Shortness of breath on exertion History of pain when walking History of edema History of echocardiogram History of stress test Hypertension Cardiology follow-up encounter Syncope Pure hypercholesterolemia Essential hypertension Hiatal hernia Asthma Atherosclerotic heart disease of [place] coronary artery without angina pectoris Long-term use of high-risk medication Acute respiratory failure with hypoxia Nonsustained ventricular tachycardia PVC (premature ventricular contraction) PAC (premature atrial contraction) Obesity (BMI 30-39.9) Surgical History History of loop recorder Hx of colonoscopy History of cataract extraction History of cholecystectomy History of carpal tunnel surgery Family History Mother CAD (coronary artery disease) Myocardial infarction Father CAD (coronary artery disease) Myocardial infarction Brother CAD (coronary artery disease) Hx of CABG Brother CAD (coronary artery disease) Social History (Reviewed 0 (more content not included)... Normal [facility] Magnetic resonance imaging r eportOrdered By: Johnson Greenwood on 03-18-2025 Study report [facility] Imaging Services [address] [place] [address] Brain without Contrast MR#: [id number] Acct: [id number] Name: ADOLFO RIVERA Rep #: [id number] : 1945 M 79 From: Lise Greenwood MD PCP: Dr. Price Herndon MD Status: REG C Study:Brain without Contrast Date of Exam: 03/17/25 Exam# [id number] Ordering Dr: Price Herndon MD PROCEDURE: BRAIN WITHOUT CONTRAST 03/17/2025 REASON FOR EXAM: MULTIPLE FALLS TECHNIQUE: BRAIN WITHOUT CONTRAST Multiplanar and multisequence images were obtained. COMPARISON: CT scan of the head on 02/20/2023. FINDINGS: Moderate diffuse cortical atrophy, commensurate with the patient's age. Mildly prominent ventricular system which is slightly out of proportion to the degree of cortical atrophy, possibly a mild form of normal pressure hydrocephalus. Confluent T2 hyperintense foci in the periventricular and subcortical white matter, probably a combination of transependymal CSF seepage and chronic ischemic white matter disease. Scattered chronic ischemic foci in the basal ganglia, thalami and infratentorialwhite matter. No other abnormality is identified in the basal ganglia and thalami. No other abnormality is identified in the brainstem. No other abnormality is identified in the cerebellum. There is no midline shift or brain herniation. There is no demonstrated extra-axial, intraparenchymal, or intraventricular hemorrhage. There are no abnormal intra-or extra-axial fluid collections. There are no areas of restricted diffusion to suggest acute ischemia. The cerebellopontine angles, internal auditory canals and the cisternal portionsof the acoustical-facial nerves are unremarkable. Unremarkable exam of the skull. Normal soft tissue structures. Minimal chronic mucosal inflammatory changes of the ethmoid air cells. The remaining visualized paranasal sinuses and mastoid air cells are clear. The visualized portions of the orbits are unremarkable. MRI/Brain without Contrast IMPRESSION: Moderate diffuse cortical atrophy, commensurate with the patient's age. Mildly prominent ventricular system which is slightly out of proportion to the degree of cortical atrophy, possibly a mild form of normal pressure hydrocephalus. Confluent T2 hyperintense foci in the periventricular and subcortical white matter, probably a combination of transependymal CSF seepage and chronic ischemic white matter disease. Scattered chronic ischemic foci in the basal ganglia, thalami and infratentorialwhite matter. No MRI evidence of an acute traumatic abnormality. Reading Location: [place] [address] CC: Dr. Price Herndon MD ~ Set Off Blocker: Signed [facility] Brain without Contraston Brain without Contrast [facility] Imaging Services [address] [place] [id number] Brain without Contrast MR#: [id number] Acct: [id number] Name: ADOLFO RIVERA Rep #: [id number] : 1945 79 From: Johnson devine MD PCP: Dr. Price Herndon MD Status: REG CLI Study: Brain without Contrast Date of Exam: 03/17/25 Exam# [id number] Ordering Dr: Price Herndon MD PROCEDURE: BRAIN WITHOUT CONTRAST 03/17/2025 REASON FOR EXAM: MULTIPLE FALLS TECHNIQUE: BRAIN WITHOUT CONTRAST Multiplanar and multisequence images were obtained. COMPARISON: CT scan of the head on 02/20/2023. FINDINGS: Moderate diffuse cortical atrophy, commensurate with the patient's age. Mildly prominent ventricular system which is slightly out of proportion to the degree of cortical atrophy, possibly a mild form of normal pressure hydrocephalus. Confluent T2 hyperintense foci in the periventricular and subcortical white matter, probably a combination of transependymal CSF seepage and chronic ischemic white matter disease. Scattered chronic ischemic foci in the basal ganglia, thalami and infratentorial white matter. No other abnormality is identified in the basal ganglia and thalami. No other abnormality is identified in the brainstem. No other abnormality is identified in the cerebellum. There is no midline shift or brain herniation. There is no demonstrated extra-axial, intraparenchymal, or intraventricular hemorrhage. There are no abnormal intra-or extra-axial fluid collections. There are no areas of restricted diffusion to suggest acute ischemia. The cerebellopontine angles, internal auditory canals and the cisternal portions of the acoustical- facial nerves are unremarkable. Unremarkable exam of the skull. Normal soft tissue structures. Minimal chronic mucosal inflammatory changes of the ethmoid air cells. The remaining visualized paranasal sinuses and mastoid air cells are clear. The visualized portions of the orbits are unremarkable. MRI/Brain without Contrast IMPRESSION: Moderate diffuse cortical atrophy, commensurate with the patient's age. Mildly prominent ventricular system which is slightly out of proportion to the degree of cortical atrophy, possibly a mild form of normal pressure hydrocephalus. Confluent T2 hyperintense foci in the periventricular and subcortical white matter, probably a combination of transependymal CSF seepage and chronic ischemic white matter disease. Scattered chronic ischemic foci in the basal ganglia, thalami and infratentorial white matter. No MRI evidence of an acute traumatic abnormality. Reading Location: [place] [address] CC: Dr. Price Herndon MD Set Off Blocker: Signed Normal [facility] PT D/C Summary (1)on 025 PT D/C Summary (1) [facility] Physical Therapy Health[address] [place] [address] / REHABILITATION SERVICES DISCHARGE SUMMARY MR#: [id number] Acct: [id number] Name: ADOLFO RIVERA Rep #: [id number] : 1945 79 From: Bob Mcmahan PT, Cert. T, [facility] Referring Dr.: Dr. Price Herndon MD Status: REG RCR Insurance: MEDICARE PART A B ANTHEM Discharge Summary D/C summary: It has been my pleasure to treat ADOLFO RIVERA referred by Dr. Price Herndon MD, with the diagnosis of LOW BACK PAIN AND FALLS for a total of 8 visit(s). Discharge Date: 02/20/25 Please see the following information for a summary of their discharge status. Subjective Subjective: Plan to have MRI brain Plan to see pain management Pain Bilateral Back: Pain Intensity (Out of 10): 3 Overall Improvement % Improvement: 10 Objective Objective/Function: POSTURE: mod thoracic kyphosis GAIT : reciprocal pattern shuffles steps slow syeda mod thoracic kyphosis ,hips/knees flexed PALAPTION: tender LS LUMBAR ROM: flexion mod loss ,extension severe loss ,side glides mod loss FLEXABILITY: hamstrings mod tight MMT: ( peak force) quads right 52.1 ,left 41.9 ,hamstrings right 30.5 ,left 32.9 ,hip flexion right 29.7 ,left 28.2 Goals Goal 1:: Patient to be I with HEP for back Goal Progress: Goal Met Goal 2:: Patient to improve CATSIBE by 5 points improve balance and risk of falls Goal Progress: Progressing Goal 3:: Patient to improve functional gait assessment score by 5 points to decrease risk of falls Goal Progress: Progressing Goal 4:: Patient to improve back oswestry score by 5 points to improve QOL and function Goal Progress: Progressing Goal 5:: Patient to improve peak force quads/hams/hip by 5 # to improve QOL and function Goal Progress: Progressing Plan Plan: D/C D/C Information Discharge Comments: HEP d/c sentence: If there are questions or concerns regarding this patient's physical therapy, please feel free to call me at [phone]. Thank you for the referral of this patient. Sincerely, Bob Mcmahan, PT, Cert MDT, OCS Balance/Gait/Functional tests Balance/Special Test Scores Functional Gait Assessment Score: 18 % Disability: 40.0000 CATSIB Score (Max score 120 seconds): 70 Oswestry Low Back Score: 30 Improvement % Improvement: 10 02/21/25 1024 CC: Dr. Price Herndon MD BERRY Signed Normal [facility] Inital Evaluation (1) - PTon 01-27-2025 Inital Evaluation (1) - PT [facility] Physical Therapy [address] [place] [address] / REHABILITATION SERVICES INITIAL EVALUATION MR#: [id number] Acct: [id number] Name: ADOLFO RIVERA Rep #: [id number] : 1945 79 From: Bob Mcmahan PT, Ramonita. T, OCS Referring Dr.: Dr. Price Herndon MD Status: REG RCR Insurance: MEDICARE PART A B ANTHEM Patient's Visit Information Visit Information Visit Information: ADOLFO RIVERA is a 79 year old M referred to Physical Therapy by Dr. Price Herndon MD with a diagnosis of LOW BACK PAIN AND FALLS. Date of Evaluation: 01/27/25 Physical Therapist: Bob Mcmahan, MICHELE, Cert FREDDY, OCS Visit Plan Frequency: 2x /Week Duration: 4 Weeks Plan: PT INTERVENTIONS DLS ,BLE STRENGTHENING ,POSTURAL EX'S ,FUNCTIONAL STRENGTHENING AND BALANCE TRAINING Subjective Subjective: This 79 y/o male presents to physical therapy with low back pain and falls. Patient has h/o back pain many years . Patient seen pain management with epidural injections which did not help which was done [place]. Patient has been falling mechanical fall got foot on pavement dragging in [place] 3 weeks ago. Symmetrical lumbar no radicular symptoms .X-rays showed 6 mm of anterolisthesis of L4 and L5,Diffuse moderate lower thoracic and lumbosacral facet sclerosis.Diffuse intervertebral disc space narrowing with osteophytes most marked in the lower thoracic spine and at L4-5 and to the greatest degree L5-S1. Patient has lumbar pain affects walking/standing < 2 mins. Symptoms better sitting and rest. No medication. Coughing/sneezing-. Bowel/bladder-. Denies paresthesia/tingling -. Patient sleeping okay. Denies dizziness/nausea/tinnit us . Patient goals to decrease pain. Patient condition affects QOL and function. SOCIAL: single VOCATION: RETIRED Pain Bilateral Back: Pain Intensity (Out of 10): 4 Pain Intensity Range: 9 Objective Objective: POSTURE: mod thoracic kyphosis GAIT : reciprocal pattern shuffles steps slow syeda mod thoracic kyphosis ,hips/knees flexed PALAPTION: tender LS LUMBAR ROM: flexion mod loss ,extension severe loss ,side glides mod loss FLEXABILITY: hamstrings mod tight MMT: ( peak force) quads right 26.7 ,left 25.9 ,hamstrings right 24.2 ,left 23.9 ,hip flexion right 21.8 ,left 20.2 Special Tests L/S Slump test left side: Negative L/S Slump test right side: Negative L/S Left Straight Leg Raise: Negative L/S Right Straight Leg Raise: Negative Balance/Special Test Scores Functional Gait Assessment Score: 15 % Disability: 50.0000 CATSIB Score (Max score 120 seconds): 65 Oswestry Low Back Score: 33 Goals Goal 1:: Patient to be I with HEP for back Goal Time Frame: 4-6 Weeks Goal 2:: Patient to improve CATSIBE by 5 points improve balance and risk of falls Goal Time Frame: 4-6 Weeks Goal 3:: Patient to improve functional gait assessment score by 5 points to decrease risk of falls Goal Time Frame: 4-6 Weeks Goal 4:: Patient to improve back oswestry score by 5 points to improve QOL and function Goal Time Frame: 4-6 Weeks Goal 5:: Patient to improve peak force quads/hams/hip by 5 # to improve QOL and function Goal Time Frame: 4-6 Weeks Rehabilitation Potential Physical Therapy Diagnosis: This patient has low back pain weakness in legs ,decrease ability to walk /stand< 2mins due to pain ,decrease balance CATSIBE and functional gait assessment. Thus recommend PT Rehabilitation Potential: Fair Anticipated Interventions Patient/Client Instruction: Educate patient on: Condition and Plan of Care For the Purpose of:: To decrease pain, To improve nutrient delivery to tissue, To increase oxygenation perfusion, To improve muscle performance and motor function, To increase tolerance to activity/condition/posi tion, To improve ability of physical actions for home/community/work/lei sure, To improve health of tissue, To decrease soft tissue restriction, To increase flexibility/ROM, To improve endurance, To reduce risk of recurrence and To improve tolerance to ADL's Therapeutic Exercise to Include: Strength training, Endurance training, Balance training, Body mechanics, Postural training, Flexibilty training and Dynamic Lumbar Stabilization For the Purpose of:: To decrease pain, To increase ROM, To improve muscle performance and motor function, To increase tolerance to activity/condition/posi tion, To decrease level of supervision to perform tasks, To improve health of tissue, To decrease soft tissue restriction and To improve tolerance to ADL's TENS: Yes IF ES: Yes Cryotherapy (ice pack, ice massage): Yes Thermo therapy (hot pack): Yes Ultrasound (thermal/non thermal): Yes For the Purpose of:: To decrease pain, To increase ROM, To improve nutrient delivery to tissue, To increase oxygenation perfusion, To improve health of tissue and To decrease soft tissu (more content not included)... Normal [facility] Absolute lymphocyte countOrd ered By: Price Yanick on 01-23-2025 Lymphocytes Auto (Unsp spec) [#/Vol] 0.82 10*3/uL Low 0.83-4.51 [facility] Absolute neutrophil countOrd ered By: [facility] on 01-23-2025 Neutrophils (Bld) [#/Vol] 3.5 10*3/uL 2.0-7.7 [facility] Anion gap in Serum or Plasma Ordered By: Price Yanick on 01-23-2025 Anion gap [Moles/Vol] 11 mmol/L 5-15 [facility] Automated lymphocyte count a s percentage of total leukocytesOrdered By: Price Yanick on 01-23-2025 Lymphocytes/100 WBC Auto (Unsp spec) 17.1 % Low 19-41 [facility] BUN/creatinine ratioOrdered By: [facility] on 01-23-2025 Urea nitrogen/Creatinine [Mass ratio] 17.3 mg/mg 10-20 [facility] Basophil percentageOrdered B y: Price Yanick on 01-23-2025 Basophils/100 WBC (Bld) 0.6 % 0-[address] [facility] Bilirubin, totalOrdered By: Price Yanick on 01-23-2025 Bilirubin [Mass/Vol] 0.46 mg/dL 0.00-1.30 [facility] CBC W/Diff, Automatedon Absolute Lymph 0.82 X10 3/uL Low 0.83-4.51 [facility] Comment on above: Performed By: #### L 500.4050, L501.9520, L100.0100, L506.1001 #### [facility] [address] [place], [place], [id number] Absolute Neut 3.5 X10 3/uL Normal 2.0-7.7 [facility] Comment on above: Performed By: #### L 500.4050, L501.9520, L100.0100, L506.1001 #### [facility] [address] [place], [address] Basophils/100 WBC (Bld) 0.6 % Normal 0-[address] [facility] Comment on above: Performed By: #### L 500.4050, L501.9520, L100.0100, L506.1001 #### [facility] [address] [place], [address] Eosinophils/100 WBC (Bld) 1.0 % Normal 0-5 [facility] Comment on above: Performed By: #### L 500.4050, L501.9520, L100.0100, L506.1001 #### [facility] [address] [place], [address] Erythrocyte distribution width (RBC) [Ratio] 14.3 % Normal 11.6-14.6 [facility] Comment on above: Performed By: #### L 500.4050, L501.9520, L100.0100, L506.1001 #### [facility] [address] [place], [address] Hematocrit (Bld) [Volume fraction] 36.3 % Low 40-54 [facility] Comment on above: Performed By: #### L 500.4050, L501.9520, L100.0100, L506.1001 #### [facility] [address] [place], [address] Hemoglobin (Bld) [Mass/Vol] 12.1 g/dL Low 13.0-16.5 [facility] Comment on above: Performed By: #### L 500.4050, L501.9520, L100.0100, L506.1001 #### [facility] [address] [place], [address] IG% 0.600 Normal 0.0-0.9 [facility] Comment on above: Result Comment: IG% - Immature Granulocytes (promyelocytes, myelocytes and metamyelocytes) > 1% indicates that a LEFT SHIFT is Present. Performed By: #### L 500.4050, L501.9520, L100.0100, L506.1001 #### [facility] [address] [place], [address] Lymphocytes/100 WBC (Bld) 17.1 % Low 19-41 [facility] Comment on above: Performed By: #### L 500.4050, L501.9520, L100.0100, L506.1001 #### [facility] [address] [place], [address] MCH (RBC) [Entitic mass] 33.2 pg High 27.0-32.0 [facility] Comment on above: Performed By: #### L 500.4050, L501.9520, L100.0100, L506.1001 #### [facility] [address] [place], [address] MCHC (RBC) [Mass/Vol] 33.3 g/dL Normal 32-36 [facility] Comment on above: Performed By: #### L 500.4050, L501.9520, L100.0100, L506.1001 #### [facility] [address] [place], [address] MCV (RBC) [Entitic vol] 99.7 fL High 80-[address] [facility] Comment on above: Performed By: #### L 500.4050, L501.9520, L100.0100, L506.1001 #### [facility] [address] [place], [address] Monocytes/100 WBC (Bld) 8.8 % Normal 0-[address] [facility] Comment on above: Performed By: #### L 500.4050, L501.9520, L100.0100, L506.1001 #### [facility] [address] [place], [address] Neutrophils/100 WBC (Bld) 71.9 % High 47-70 [facility] Comment on above: Performed By: #### L 500.4050, L501.9520, L100.0100, L506.1001 #### [facility] [address] [place], [address] Nucleated RBC (Bld) [#/Vol] 0 10*3/uL Normal 0-5 [facility] Comment on above: Performed By: #### L 500.4050, L501.9520, L100.0100, L506.1001 #### [facility] [address] [place], [address] Platelet mean volume (Bld) [Entitic vol] 9.0 fL Normal 6.2-12.0 [facility] Comment on above: Performed By: #### L 500.4050, L501.9520, L100.0100, L506.1001 #### [facility] [address] [place], [address] Platelets (Bld) [#/Vol] 196 10*3/uL Normal 150-450 [facility] Comment on above: Performed By: #### L 500.4050, L501.9520, L100.0100, L506.1001 #### [facility] [address] [place], [address] RBC (Bld) [#/Vol] 3.64 10*6/uL Low 4.6-6.2 [facility] Comment on above: Performed By: #### L 500.4050, L501.9520, L100.0100, L506.1001 #### [facility] [address] [place], [address] RDW SD 52.2 fl High 35.1-43.9 [facility] Comment on above: Performed By: #### L 500.4050, L501.9520, L100.0100, L506.1001 #### [facility] [address] [place], [address] WBC (Bld) [#/Vol] 4.8 10*3/uL Normal 4.4-11.0 [facility] Comment on above: Performed By: #### L 500.4050, L501.9520, L100.0100, L506.1001 #### [facility] [address] [place], [address] Carbon dioxide, total [Moles /volume] in Central venous bloodOrdered By: Price Herndon on 01-23-2025 CO2 [Moles/Vol] 23.4 mmol/L 21.0-32.0 [facility] Chloride assayOrdered By: Brendan Herndon on 01-23-2025 Chloride [Moles/Vol] 102 mmol/L 98-108 [facility] Comprehensive Metabolic Prof ilon 01-23-2025 Albumin [Mass/Vol] 2.9 g/dL Low 3.4-4.8 [facility] Comment on above: Performed By: #### L 500.4050, L501.9520, L100.0100, L506.1001 #### [facility] [address] [place], [address] Albumin/Globulin [Mass ratio] -2.3000 {ratio} Low 0.9-2.4 [facility] Comment on above: Performed By: #### L 500.4050, L501.9520, L100.0100, L506.1001 #### [facility] [address] [place], [address] ALK PHOS 80 U/L Normal 40-129 [facility] Comment on above: Performed By: #### L 500.4050, L501.9520, L100.0100, L506.1001 #### [facility] [address] [place], [address] ALT [Catalytic activity/Vol] 26 U/L Normal <=46 [facility] Comment on above: Performed By: #### L 500.4050, L501.9520, L100.0100, L506.1001 #### [facility] [address] [place], [address] AST [Catalytic activity/Vol] 23 U/L Normal <=37 [facility] Comment on above: Performed By: #### L 500.4050, L501.9520, L100.0100, L506.1001 #### [facility] [address] [place], [address] Bilirubin [Mass/Vol] 0.46 mg/dL Normal 0.00-1.30 [facility] Comment on above: Performed By: #### L 500.4050, L501.9520, L100.0100, L506.1001 #### [facility] [address] [place], [address] BUN/CRE 17.3 RATIO Normal 10-20 [facility] Comment on above: Performed By: #### L 500.4050, L501.9520, L100.0100, L506.1001 #### [facility] [address] [place], [address] Calcium [Mass/Vol] 8.5 mg/dL Normal 7.6-11.0 [facility] Comment on above: Performed By: #### L 500.4050, L501.9520, L100.0100, L506.1001 #### [facility] [address] [place], [address] Chloride [Moles/Vol] 102 mmol/L Normal 98-108 [facility] Comment on above: Performed By: #### L 500.4050, L501.9520, L100.0100, L506.1001 #### [facility] [address] [place], [address] CO2 [Moles/Vol] 23.4 mmol/L Normal 21.0-32.0 [facility] Comment on above: Performed By: #### L 500.4050, L501.9520, L100.0100, L506.1001 #### [facility] [address] [place], [address] Creatinine [Mass/Vol] 0.85 mg/dL Normal 0.70-1.20 [facility] Comment on above: Performed By: #### L 500.4050, L501.9520, L100.0100, L506.1001 #### [facility] [address] [place], [address] GAP 11 Normal 5-15 [facility] Comment on above: Performed By: #### L 500.4050, L501.9520, L100.0100, L506.1001 #### [facility] [address] [place], [address] GFR/1.73 sq M.predicted among non-blacks MDRD (S/P/Bld) [Vol rate/Area] 87 mL/min/{1.73_m2} Normal >60 [facility] Comment on above: Result Comment: mL/m in/1.73m2 CKD-EPI Creatinine Equation (2020) Performed By: #### L 500.4050, L501.9520, L100.0100, L506.1001 #### [facility] [address] [place], [address] Globulin (S) [Mass/Vol] -1.3000 g/dL Low 2.2-4.2 [facility] Comment on above: Result Comment: AMENDED REPORT 01/23/25 1409 GLOB previously reported as: -1.3 L g/dL Performed By: #### L 500.4050, L501.9520, L100.0100, L506.1001 #### [facility] [address] [place], [address] Glucose [Mass/Vol] 112 mg/dL High 70-99 [facility] Comment on above: Performed By: #### L 500.4050, L501.9520, L100.0100, L506.1001 #### [facility] [address] [place], [address] Potassium [Moles/Vol] 4.2 mmol/L Normal 3.3-5.1 [facility] Comment on above: Performed By: #### L 500.4050, L501.9520, L100.0100, L506.1001 #### [facility] [address] [place], [address] Sodium [Moles/Vol] 137 mmol/L Normal 133-145 [facility] Comment on above: Performed By: #### L 500.4050, L501.9520, L100.0100, L506.1001 #### [facility] [address] [place], [address] T PROT 1.7 g/dL Low 5.9-8.4 [facility] Comment on above: Result Comment: AMENDED REPORT 01/23/25 1409 T PROT previously reported as: 1.7 L g/dL Performed By: #### L 500.4050, L501.9520, L100.0100, L506.1001 #### [facility] [address] [place], [address] Urea nitrogen [Mass/Vol] 15 mg/dL Normal 4-19 [facility] Comment on above: Performed By: #### L 500.4050, L501.9520, L100.0100, L506.1001 #### [facility] [address] [place], [address] Eosinophil percentageOrdered By: [facility] on 01-23-2025 Eosinophils/100 WBC (Bld) 1.0 % 0-5 [facility] Erythrocyte distribution wid th ratioOrdered By: [facility] on 01-23-2025 Erythrocyte distribution width (RBC) [Ratio] 14.3 % 11.6-14.6 [facility] Erythrocyte distribution wid th standard deviationOrdered By: [facility] on 01-23-2025 Erythrocyte distribution width (RBC) [Ratio] 52.2 fl High 35.1-43.9 [facility] Glomerular filtration rate ( GFR) estimation/1.73 sq m using serum, plasma, or whole bOrdered By: [facility] on 01-23-2025 GFR/1.73 sq M.predicted among non-blacks MDRD (S/P/Bld) [Vol rate/Area] 87 mL/min/{1.73_m2} >60 [facility] Comment on above: mL/min/1.73m2 CKD-EP I Creatinine Equation (2020) Hematocrit Auto (Bld) [Volum e fraction]Ordered By: [facility] on 01-23-2025 Hematocrit (Bld) [Volume fraction] 36.3 % Low 40-54 [facility] Hemoglobin measurementOrdere d By: Price Yanick 01-23-2025 Hemoglobin (Bld) [Mass/Vol] 12.1 g/dL Low 13.0-16.5 [facility] Immature granulocytes/100 WB C Auto (Bld)Ordered By: Price Yanick 01-23-2025 Immature granulocytes/100 WBC (Bld) 0.600 % 0.0-0.9 [facility] Comment on above: IG% - Immature Granu locytes (promyelocytes, myelocytes and metamyelocytes) > 1% indicates that a LEFT SHIFT is Present. Laboratory - Chemistry and C hemistry - challengeOrdered By: Price Yanick 01-23-2025 AST [Catalytic activity/Vol] 23 U/L <38 [facility] MCV (mean corpuscular volume ) determinationOrdered By: Price Yanick 01-23-2025 MCV (RBC) [Entitic vol] 99.7 fL High 80-[address] [facility] Mean corpuscular hemoglobin (MCH) determinationOrdered By: Price Herndon on 01-23-2025 MCH (RBC) [Entitic mass] 33.2 pg High 27.0-32.0 [facility] Mean corpuscular hemoglobin concentration (MCHC) determinationOrdered By: Price Herndon on 01-23-2025 MCHC (RBC) [Mass/Vol] 33.3 g/dL 32-36 [facility] Mean platelet volume determi nationOrdered By: Price Herndon on 01-23-2025 Platelet mean volume (Bld) [Entitic vol] 9.0 fL 6.2-12.0 [facility] Monocyte percentageOrdered B y: Price Herndon on 01-23-2025 Monocytes/100 WBC (Bld) 8.8 % 0-[address] [facility] Neutrophil percentageOrdered By: Price Herndon on 01-23-2025 Neutrophils/100 WBC (Bld) 71.9 % High 47-70 [facility] Nucleated red blood cell per centageOrdered By: Price Herndon on 01-23-2025 Nucleated RBC/100 WBC (Bld) [Ratio] 0 % 0-5 [facility] Platelet countOrdered By: Brendan Herndon on 01-23-2025 Platelets (Bld) [#/Vol] 196 10*3/uL 150-450 [facility] Potassium measurement (mass/ volume)Ordered By: Price Herndon on 01-23-2025 Potassium (Unsp spec) [Mass/Vol] 4.2 mmol/L 3.3-5.1 [facility] RBC Auto (Bld) [#/Vol]Ordere d By: Price Herndon on 01-23-2025 RBC (Bld) [#/Vol] 3.64 10*6/uL Low 4.6-6.2 [facility] Serum creatinine measurement (mass/volume)Ordered By: Price Herndon on 01-23-2025 Creatinine [Mass/Vol] 0.85 mg/dL 0.70-1.20 [facility] Serum globulin measurementOr dered By: Price Herndon on 01-23-2025 Globulin (S) [Mass/Vol] 3.1 g/dL 2.2-4.2 [facility] Comment on above: Previous reported re sult: -1.3 g/dLEdited by: SEBASTIEN on 01/23/25:1409 AMENDED REPORT 01/23/25 1409 GLOB previously reported as: -1.3 L g/dL Serum glucose measurement (m ass/volume)Ordered By: Price Herndon on 01-23-2025 Glucose [Mass/Vol] 112 mg/dL High 70-99 [facility] Serum or plasma alanine rojas otransferase (ALT) measurementOrdered By: Price Herndon on 01-23-2025 ALT [Catalytic activity/Vol] 26 U/L <47 [facility] Serum or plasma albumin jake urement (mass/volume)Ordered By: Price Herndon on 01-23-2025 Albumin [Mass/Vol] 2.9 g/dL Low 3.4-4.8 [facility] Serum or plasma albumin/glob ulin mass ratioOrdered By: Price Herndon on 01-23-2025 Albumin/Globulin [Mass ratio] -2.3000 {ratio} Low 0.9-2.4 [facility] Serum or plasma alkaline jimenez sphatase measurementOrdered By: Price Herndon on 01-23-2025 ALP [Catalytic activity/Vol] 80 U/L 40-129 [facility] Serum or plasma calcium jake urement (mass/volume)Ordered By: Price Herndon on 01-23-2025 Calcium [Mass/Vol] 8.5 mg/dL 7.6-11.0 [facility] Serum or plasma urea nitroge n measurement (mass/volume)Ordered By: Price Herndon on 01-23-2025 Urea nitrogen [Mass/Vol] 15 mg/dL 4-19 [facility] Sodium levelOrdered By: Price Herndon on 01-23-2025 Sodium [Moles/Vol] 137 mmol/L 133-145 [facility] TSH DL <= 0.005 mIU/L QnOrde red By: Price Herndon on 01-23-2025 TSH Qn 0.801 uIU/mL 0.300-4.200 [facility] Thyroid Stim Hormone (TSH)on 01-23-2025 TSH 0.801 uIU/mL Normal 0.300-4.200 [facility] Comment on above: Performed By: #### L 500.4050, L501.9520, L100.0100, L506.1001 #### [facility] [address] [place], [address] Total proteinOrdered By: Price Herndon on 01-23-2025 Protein [Mass/Vol] 6.1 g/dL 5.9-8.4 [facility] Comment on above: Previous reported re sult: 1.7 g/dLEdited by: SEBASTIEN on 01/23/25:1409 AMENDED REPORT 01/23/25 1409 T PROT previously reported as: 1.7 L g/dL Vitamin D,25 Hydroxyon 01-23 Vitamin D 25-OH 29.1 ng/mL Low 30-100 [facility] Comment on above: Result Comment: Anju min D Status Deficiency: <20 ng/mL (50nmol/L) Insufficiency: 20-30 ng/mL (50-75 nmol/L) Sufficiency: 30-100 ng/mL (75-250 nmol/L) Toxicity: >100 ng/mL (>250 nmol/L) Performed By: #### L 500.4050, L501.9520, L100.0100, L506.1001 #### [facility] [address] [place], [address] White blood cell (WBC) count Ordered By: Price Herndon on 01-23-2025 WBC (Bld) [#/Vol] 4.8 10*3/uL 4.4-11.0 [facility] MRI SPINE LUMBAR W/O CONTRAS Ton 09-02-2024 MRI SPINE LUMBAR W/O CONTRAST ORIGINAL EXAMINATION: MRI OF THE LUMBAR SPINE WITHOUT CONTRAST, 09/02/2024 9:23 am TECHNIQUE: Multiplanar multisequence MRI of the lumbar spine was performed without the administration of intravenous contrast. COMPARISON: Lumbar spine 07/25/2024. HISTORY: ORDERING SYSTEM PROVIDED HISTORY: Reason for Exam: Intractable lumbar pain and bilateral buttock pain., Failed physical therapy, failed lumbar injections FINDINGS: BONES/ALIGNMENT: About 7 mm of anterolisthesis of L4 on L5 is present from hypertrophic facet arthropathy. About 4 mm of anterolisthesis of L3 on L4. SPINAL CORD: The conus terminates normally. SOFT TISSUES: No paraspinal mass identified. L1-L2: There is degenerative disc space narrowing and hypertrophic facet arthropathy without significant canal or foraminal stenosis. L2-L3: There is degenerative disc space narrowing and facet arthropathy without significant canal or foraminal stenosis. L3-L4: There is hypertrophic facet arthropathy with grade 1 anterolisthesis of L3 on L4 and moderately severe canal stenosis. L4-L5: There is hypertrophic facet arthropathy with grade 1 anterolisthesis of L4 on L5 with severe canal stenosis. L5-S1: There is hypertrophic facet arthropathy with moderately severe bilateral foraminal stenosis. IMPRESSION: 1. Degenerative changes of the lumbar spine with severe canal stenosis at L4-L5 and moderately severe canal stenosis at L3-L4. 2. Moderately severe bilateral foraminal stenosis at L5-S1. Interpreted by: Itz Nolan Preliminary Report By: Itz Nolan Electronically signed By Itz Nolan Dictated Date: 09/02/2024 10:33:41 AM Prelim Date: 09/02/2024 10:41:02 AM Sign Date: 09/02/2024 10:41:02 AM Ordering Provider: KAREN SOMERS [facility] MAIN PT D/C Summary (1)on 024 PT D/C Summary (1) [facility] Physical Therapy Health[address] [place] [address] / REHABILITATION SERVICES DISCHARGE SUMMARY MR#: [id number] Acct: [id number] Name: ADOLFO RIVERA Rep #: [id number] : 1945 78 From: Bob Mcmahan PT, Cert. T, OCS Referring DrYves: Dr. Price Herndon MD Status: REG RCR Insurance: MEDICARE PART A B [facility] Discharge Summary D/C summary: It has been my pleasure to treat ADOLFO RIVERA referred by Dr. Price Herndon MD, with the diagnosis of LOW BACK PAIN for a total of 9 visit(s). Discharge Date: Please see the following information for a summary of their discharge status. Subjective Subjective: Doing okay plan to see in [place] spine Feel stronger but conts to have pain Pain Bilateral Back: Pain Intensity (Out of 10): 3 Overall Improvement % Improvement: 40 Objective Objective/Function: POSTURE: mod forward posture ,trunk flexed GAIT: reciprocal pattern trunk flexed forward PALAPTION: unremarkable NEURO: denies paresthesia/tingling ,reflexes L3-4,L4-5,L5- S1 1/3 FLEXABILITY: hamstrings mod tight MMT: quads/hams 4/5 ,hip flexion 4-/5 ankle 5/5 LUMBAR ROM: flexion mod loss ,extension mod /severe loss ,side glides mod loss Goals Goal 1:: Patient to be I with HEP for back Goal 2:: Patient to demonstrate 50% improvement with less pain and improve function with gait Goal 3:: Patient to improve lumbar ROM for function of recovery to put on shoes Goal 4:: Patient to improve back oswestry score by 5 points to improve QOL ad function Goal 5:: Patient able to walk/stand > 10 mins to improve function with less pain Plan Plan: SEE [employer]THO [employer]PA[employer] D/C Information d/c sentence: If there are questions or concerns regarding this patient's physical therapy, please feel free to call me at [phone]. Thank you for the referral of this patient. Sincerely, Bob Mcmahan, PT, Cert MDT, OCS Balance/Gait/Functional tests Balance/Special Test Scores Oswestry Low Back Score: 23 Improvement % Improvement: 40 08/27/24 1123 CC: Dr. Price Herndon MD JLA Signed Normal [facility] CBC W/Diff, Automatedon 11-1 Absolute Lymph 1.35 X10 3/uL Normal 0.83-4.51 [facility] Comment on above: Performed By: #### L 501.9520, L506.1000, M100.678, L500.4050, L100.0100 #### [facility] [address] [place], [address] Absolute Neut 2.7 X10 3/uL Normal 2.0-7.7 [facility] Comment on above: Performed By: #### L 501.9520, L506.1000, M100.678, L500.4050, L100.0100 #### [facility] [address] [place], [address] Basophils/100 WBC (Bld) 0.8 % Normal 0-[address] [facility] Comment on above: Performed By: #### L 501.9520, L506.1000, M100.678, L500.4050, L100.0100 #### [facility] [address] [place], [address] Eosinophils/100 WBC (Bld) 7.1 % High 0-5 [facility] Comment on above: Performed By: #### L 501.9520, L506.1000, M100.678, L500.4050, L100.0100 #### [facility] [address] [place], [address] Erythrocyte distribution width (RBC) [Ratio] 14.3 % Normal 11.6-14.6 [facility] Comment on above: Performed By: #### L 501.9520, L506.1000, M100.678, L500.4050, L100.0100 #### [facility] [address] [place], [address] Hematocrit (Bld) [Volume fraction] 40.7 % Normal 40-54 [facility] Comment on above: Performed By: #### L 501.9520, L506.1000, M100.678, L500.4050, L100.0100 #### [facility] [address] [place], [address] Hemoglobin (Bld) [Mass/Vol] 13.3 g/dL Normal 13.0-16.5 [facility] Comment on above: Performed By: #### L 501.9520, L506.1000, M100.678, L500.4050, L100.0100 #### [facility] [address] [place], [address] IG% 0.200 Normal 0.0-0.9 [facility] Comment on above: Result Comment: IG% - Immature Granulocytes (promyelocytes, myelocytes and metamyelocytes) > 1% indicates that a LEFT SHIFT is Present. Performed By: #### L 501.9520, L506.1000, M100.678, L500.4050, L100.0100 #### [facility] [address] [place], [address] Lymphocytes/100 WBC (Bld) 27.5 % Normal 19-41 [facility] Comment on above: Performed By: #### L 501.9520, L506.1000, M100.678, L500.4050, L100.0100 #### [facility] [address] [place], [address] MCH (RBC) [Entitic mass] 32.0 pg Normal 27.0-32.0 [facility] Comment on above: Performed By: #### L 501.9520, L506.1000, M100.678, L500.4050, L100.0100 #### [facility] [address] [place], [address] MCHC (RBC) [Mass/Vol] 32.7 g/dL Normal 32-36 [facility] Comment on above: Performed By: #### L 501.9520, L506.1000, M100.678, L500.4050, L100.0100 #### [facility] [address] [place], [address] MCV (RBC) [Entitic vol] 97.8 fL High 80-[address] [facility] Comment on above: Performed By: #### L 501.9520, L506.1000, M100.678, L500.4050, L100.0100 #### [facility] [address] [place], [address] Monocytes/100 WBC (Bld) 10.0 % Normal 0-[address] [facility] Comment on above: Performed By: #### L [id number], L506.1000, M100.678, L500.4050, L100.0100 #### [facility] [address] [place], [address] Neutrophils/100 WBC (Bld) 54.4 % Normal 47-70 [facility] Comment on above: Performed By: #### L [id number], L506.1000, M100.678, L500.4050, L100.0100 #### [facility] [address] [place], [address] Nucleated RBC (Bld) [#/Vol] 0 10*3/uL Normal 0-5 [facility] Comment on above: Performed By: #### L [id number], L506.1000, M100.678, L500.4050, L100.0100 #### [facility] [address] [place], [address] Platelet mean volume (Bld) [Entitic vol] 9.3 fL Normal 6.2-12.0 [facility] Comment on above: Performed By: #### L [id number], L506.1000, M100.678, L500.4050, L100.0100 #### [facility] [address] [place], [address] Platelets (Bld) [#/Vol] 211 10*3/uL Normal 150-450 [facility] Comment on above: Performed By: #### L [id number], L506.1000, M100.678, L500.4050, L100.0100 #### [facility] [address] [place], [address] RBC (Bld) [#/Vol] 4.16 10*6/uL Low 4.6-6.2 [facility] Comment on above: Performed By: #### L [id number], L506.1000, M100.678, L500.4050, L100.0100 #### [facility] [address] [place], [address] RDW SD 51.8 fl High 35.1-43.9 [facility] Comment on above: Performed By: #### L [id number], L506.1000, M100.678, L500.4050, L100.0100 #### [facility] [address] [place], [address] WBC (Bld) [#/Vol] 4.9 10*3/uL Normal 4.4-11.0 [facility] Comment on above: Performed By: #### L [id number], L506.1000, M100.678, L500.4050, L100.0100 #### [facility] [address] [place], [address] Comprehensive [facility] 08-08-2024 Albumin [Mass/Vol] 3.5 g/dL Normal 3.2-5.0 [facility] Comment on above: Performed By: #### L [id number], L506.1000, M100.678, L500.4050, L100.0100 #### [facility] [address] [place], [address] Albumin/Globulin [Mass ratio] 1.0 {ratio} Normal 0.9-2.4 [facility] Comment on above: Performed By: #### L [id number], L506.1000, M100.678, L500.4050, L100.0100 #### [facility] [address] [place], [address] ALK P 94 U/L Normal 45-117 [facility] Comment on above: Performed By: #### L [id number], L506.1000, M100.678, L500.4050, L100.0100 #### [facility] [address] [place], [address] ALT [Catalytic activity/Vol] 34 U/L Normal 16-61 [facility] Comment on above: Performed By: #### L [id number], L506.1000, M100.678, L500.4050, L100.0100 #### [facility] [address] [place], [address] AST [Catalytic activity/Vol] 23 U/L Normal 15-37 [facility] Comment on above: Performed By: #### L [id number], L506.1000, M100.678, L500.4050, L100.0100 #### [facility] [address] [place], [address] Bilirubin [Mass/Vol] 0.50 mg/dL Normal 0.20-1.00 [facility] Comment on above: Result Comment: For patients on eltrombopag therapy, use of Dimension [place] TBIL is not recommended. Performed By: #### L [id number], L506.1000, M100.678, L500.4050, L100.0100 #### [facility] [address] [place], [address] BUN/CRE 17.0 RATIO Normal 10-20 [facility] Comment on above: Performed By: #### L [id number], L506.1000, M100.678, L500.4050, L100.0100 #### [facility] [address] [place], [address] CA,Total 9.2 mg/dL Normal 8.5-10.1 [facility] Comment on above: Performed By: #### L [id number], L506.1000, M100.678, L500.4050, L100.0100 #### [facility] [address] [place], [address] Chloride [Moles/Vol] 105 mmol/L Normal 98-107 [facility] Comment on above: Performed By: #### L [id number], L506.1000, M100.678, L500.4050, L100.0100 #### [facility] [address] [place], [address] CO2 [Moles/Vol] 28.0 mmol/L Normal 21.0-32.0 [facility] Comment on above: Performed By: #### L [id number], L506.1000, M100.678, L500.4050, L100.0100 #### [facility] [address] [place], [address] Creatinine [Mass/Vol] 1.00 mg/dL Normal 0.70-1.30 [facility] Comment on above: Result Comment: The validity of the calculated GFR GFRAA in patients over 70 years has not been determined. Clinical correlation is essential. Performed By: #### L [id number], L506.1000, M100.678, L500.4050, L100.0100 #### [facility] [address] [place], [address] EST GFR - AA 92 mL/min Normal >60 [facility] Comment on above: Result Comment: Afri can [place] GFR Calc Performed By: #### L [id number], L506.1000, M100.678, L500.4050, L100.0100 #### [facility] [address] [place], [address] GAP 6 Normal 5-15 [facility] Comment on above: Performed By: #### L [id number], L506.1000, M100.678, L500.4050, L100.0100 #### [facility] [address] [place], [address] GFR/1.73 sq M.predicted among non-blacks MDRD (S/P/Bld) [Vol rate/Area] 76 mL/min/{1.73_m2} Normal >60 [facility] Comment on above: Result Comment: Non- GFR Calc Performed By: #### L [id number], L506.1000, M100.678, L500.4050, L100.0100 #### [facility] [address] [place], [address] Globulin (S) [Mass/Vol] 3.4 g/dL Normal 2.2-4.2 [facility] Comment on above: Performed By: #### L [id number], L506.1000, M100.678, L500.4050, L100.0100 #### [facility] [address] [place], [address] Glucose [Mass/Vol] 93 mg/dL Normal 74-106 [facility] Comment on above: Performed By: #### L [id number], L506.1000, M100.678, L500.4050, L100.0100 #### [facility] [address] [place], [address] Potassium [Moles/Vol] 4.1 mmol/L Normal 3.5-5.1 [facility] Comment on above: Performed By: #### L [id number], L506.1000, M100.678, L500.4050, L100.0100 #### [facility] [address] [place], [address] Sodium [Moles/Vol] 139 mmol/L Normal 136-145 [facility] Comment on above: Performed By: #### L [id number], L506.1000, M100.678, L500.4050, L100.0100 #### [facility] [address] [place], [address] T PROT 6.9 g/dL Normal 6.4-8.2 [facility] Comment on above: Performed By: #### L [id number], L506.1000, M100.678, L500.4050, L100.0100 #### [facility] [address] [place], [address] Urea nitrogen [Mass/Vol] 17 mg/dL Normal 7-18 [facility] Comment on above: Performed By: #### L [id number], L506.1000, M100.678, L500.4050, L100.0100 #### [facility] [address] [place], [address] M100.678on 08-08-2024 M100.678 Pending SARS-CoV-2 (COVID 19) Negative INFLUENZA A Negative INFLUENZA B Negative RSV PCR Negative Normal [facility] Comment on above: Performed By: #### L [id number], L506.1000, M100.678, L500.4050, L100.0100 #### [facility] [address] [place], [address] Thyroid Stim Hormone (TSH)on 08-08-2024 TSH 1.200 uIU/mL Normal 0.358-3.740 [facility] Comment on above: Performed By: #### L [id number], L506.1000, M100.678, L500.4050, L100.0100 #### [facility] [address] [place], [address] Vitamin D,25 Hydroxyon 08-08 Vitamin D 25-OH 30.5 ng/mL Normal [facility] Comment on above: Result Comment: Anju min D 25(OH) Status Range Deficiency <20 ng/mL (50nmol/L) Insufficiency 20 - 30 ng/mL (50 - 75 nmol/L) Sufficiency 30 - 100 ng/mL (75 - 250 nmol/L) Toxicity >100 ng/mL (>250 nmol/L) Performed By: #### L [id number], L506.1000, M100.678, L500.4050, L100.0100 #### [facility] [address] [place], [address] Absolute lymphocyte countOrd ered By: Price Herndon on 01-29-2024 Lymphocytes Auto (Unsp spec) [#/Vol] 1.17 10*3/uL 0.83-4.51 [facility] Automated lymphocyte count a s percentage of total leukocytesOrdered By: Price Herndon on 01-29-2024 Lymphocytes/100 WBC Auto (Unsp spec) 21.7 % 19-41 [facility] Basophil percentageOrdered B y: Price Herndon on 01-29-2024 Basophils/100 WBC (Bld) 0.9 % 0-[address] [facility] Chloride [Moles/Vol] 105 mmol/L 98-107 [facility] Eosinophils/100 WBC (Bld) 5.0 % 0-5 [facility] Glucose [Mass/Vol] 112 mg/dL 74-106 [facility] Comment on above: Fasting Glucose resu lt from 100 to 125 mg/dL suggests IMPAIRED HOMEOSTASIS per A.D.A. criteria. Hemoglobin (Bld) [Mass/Vol] 13.1 g/dL 13.0-16.5 [facility] Monocytes/100 WBC (Bld) 8.7 % 0-[address] [facility] Neutrophils (Bld) [#/Vol] 3.4 10*3/uL 2.0-7.7 [facility] Neutrophils/100 WBC (Bld) 63.5 % 47-70 [facility] Potassium [Moles/Vol] 4.1 mmol/L 3.5-5.1 [facility] Sodium [Moles/Vol] 138 mmol/L 136-145 [facility] WBC (Bld) [#/Vol] 5.4 10*3/uL 4.4-11.0 [facility] Determination of erythrocyte mean corpuscular volume (MCV)Ordered By: Price Herndon on 01-29-2024 MCV (RBC) [Entitic vol] 97.8 fL 80-[address] [facility] Erythrocyte distribution wid th ratioOrdered By: Price Herndon on 01-29-2024 Erythrocyte distribution width (RBC) [Ratio] 14.4 % 11.6-14.6 [facility] Erythrocyte distribution wid th standard deviationOrdered By: Price Herndon on 01-29-2024 Erythrocyte distribution width (RBC) [Entitic vol] 51.9 fL 35.1-43.9 [facility] Hematocrit Auto (Bld) [Volum e fraction]Ordered By: Price Herndon on 01-29-2024 Hematocrit (Bld) [Volume fraction] 39.9 % 40-54 [facility] Immature granulocytes/100 WB C Auto (Bld)Ordered By: Price Yanick on 01-29-2024 Immature granulocytes/100 WBC (Bld) 0.200 % 0.0-0.9 [facility] Comment on above: IG% - Immature Granu locytes (promyelocytes, myelocytes and metamyelocytes) > 1% indicates that a LEFT SHIFT is Present. Laboratory - Chemistry and C hemistry - challengeOrdered By: Price Herndon on 01-29-2024 CO2 [Moles/Vol] 27.0 mmol/L 21.0-32.0 [facility] Natriuretic peptide B (Bld) [Mass/Vol] 49.9 pg/mL 0-100 [facility] Urea nitrogen/Creatinine [Mass ratio] 20.4 mg/mg 10-20 [facility] - Hematology and Cell countsOrdered By: Price Herndon 01-29-2024 MCH (RBC) [Entitic mass] 32.1 pg 27.0-32.0 [facility] MCHC (RBC) [Mass/Vol] 32.8 g/dL 32-36 [facility] Nucleated RBC/100 WBC (Bld) [Ratio] 0 % 0-5 [facility] Platelet mean volume (Bld) [Entitic vol] 10.0 fL 6.2-12.0 [facility] Platelets (Bld) [#/Vol] 233 10*3/uL 150-450 [facility] No Panel InformationOrdered By: Price Herndon on 01-29-2024 Estimated GFR (MDRD) Amer 95 mL/min >60 [facility] Comment on above: GFR Calc Estimated GFR (MDRD) Non-Af Amer 78 mL/min >60 [facility] Comment on above: Non- GFR Calc RBC Auto (Bld) [#/Vol]Ordere d By: Price Herndon on 01-29-2024 RBC (Bld) [#/Vol] 4.08 10*6/uL 4.6-6.2 [facility] Serum or plasma calcium jake urement (mass/volume)Ordered By: Price Herndon on 01-29-2024 Calcium [Mass/Vol] 9.2 mg/dL 8.5-10.1 [facility] Serum or plasma creatinine m easurement (mass/volume)Ordered By: Price Herndon on 01-29-2024 Creatinine [Mass/Vol] 0.98 mg/dL 0.70-1.30 [facility] Comment on above: The validity of the calculated GFR & GFRAA in patients over 70 years has not been determined. Clinical correlation is essential. Serum or plasma urea nitroge n measurement (mass/volume)Ordered By: Price Herndon on 01-29-2024 Urea nitrogen [Mass/Vol] 20 mg/dL 7-18 [facility] Thin prep Papanicolaou smear with manual screeningOrdered By: Price Herndon on 01-29-2024 Thin prep Papanicolaou smear with manual screening 6 5-15 [facility] Absolute lymphocyte countOrd ered By: Price Herndon on 06-05-2023 Lymphocytes Auto (Unsp spec) [#/Vol] 1.04 10*3/uL 0.83-4.51 [facility] Basophil percentageOrdered B y: Price Herndon on 06-05-2023 Basophils/100 WBC (Bld) 0.7 % 0-1 [facility] Bilirubin [Mass/Vol] 0.30 mg/dL 0.20-1.00 [facility] Comment on above: For patients on eltr ombopag therapy, use of Dimension [place] TBIL is not recommended. Chloride [Moles/Vol] 105 mmol/L 98-107 [facility] Eosinophils/100 WBC (Bld) 3.0 % 0-5 [facility] Glucose [Mass/Vol] 118 mg/dL 74-106 [facility] Comment on above: Fasting Glucose resu lt from 100 to 125 mg/dL suggests IMPAIRED HOMEOSTASIS per A.D.A. criteria. Neutrophils (Bld) [#/Vol] 2.8 10*3/uL 2.0-7.7 [facility] Neutrophils/100 WBC (Bld) 63.5 % 47-70 [facility] Potassium [Moles/Vol] 4.3 mmol/L 3.5-5.1 [facility] Protein [Mass/Vol] 6.5 g/dL 6.4-8.2 [facility] Sodium [Moles/Vol] 137 mmol/L 136-145 [facility] WBC (Bld) [#/Vol] 4.4 10*3/uL 4.4-11.0 [facility] Blood erythrocytes count (nu mber/volume)Ordered By: Price Herndon on 06-05-2023 RBC (Bld) [#/Vol] 3.53 10*6/uL 4.6-6.2 [facility] Blood hemoglobin measurement (mass/volume)Ordered By: Price Herndon on 06-05-2023 Hemoglobin (Bld) [Mass/Vol] 11.2 g/dL 13.0-16.5 [facility] Blood lymphocytes/100 leukoc ytesOrdered By: Price Herndon on 06-05-2023 Lymphocytes/100 WBC (Bld) 23.7 % 19-41 [facility] Blood monocytes/100 leukocyt esOrdered By: Price Herndon on 06-05-2023 Monocytes/100 WBC (Bld) 8.9 % 0-[address] [facility] Blood platelet mean volumeOr dered By: Price Herndon on 06-05-2023 Platelet mean volume (Bld) [Entitic vol] 9.5 fL 6.2-12.0 [facility] Determination of erythrocyte mean corpuscular volume (MCV)Ordered By: Price Herndon on 06-05-2023 MCV (RBC) [Entitic vol] 100.6 fL 80-[address] [facility] Hematocrit Auto (Bld) [Volum e fraction]Ordered By: Price Herndon on 06-05-2023 Hematocrit (Bld) [Volume fraction] 35.5 % 40-54 [facility] - Chemistry and C hemistry - challengeOrdered By: Price Herndon on 06-05-2023 ALP [Catalytic activity/Vol] 93 U/L 45-117 [facility] ALT [Catalytic activity/Vol] 25 U/L 16-61 [facility] CO2 [Moles/Vol] 25.0 mmol/L 21.0-32.0 [facility] Globulin (S) [Mass/Vol] 3.2 g/dL 2.2-4.[address] [facility] Urea nitrogen/Creatinine [Mass ratio] 17.6 mg/mg 10-20 [facility] - Hematology and Cell countsOrdered By: Price Herndon on 06-05-2023 Erythrocyte distribution width (RBC) [Entitic vol] 50.8 fL 35.1-43.9 [facility] Erythrocyte distribution width (RBC) [Ratio] 13.8 % 11.6-14.6 [facility] Immature granulocytes/100 WBC (Bld) 0.200 % 0.0-0.9 [facility] Comment on above: IG% - Immature Granu locytes (promyelocytes, myelocytes and metamyelocytes) > 1% indicates that a LEFT SHIFT is Present. MCH (RBC) [Entitic mass] 31.7 pg 27.0-32.0 [facility] Nucleated RBC/100 WBC (Bld) [Ratio] 0 % 0-5 [facility] MCHC Auto (RBC) [Mass/Vol]Or dered By: Price Herndon on 06-05-2023 MCHC (RBC) [Mass/Vol] 31.5 g/dL 32-36 [facility] No Panel InformationOrdered By: Price Herndon on 06-05-2023 Estimated GFR (MDRD) Amer 103 mL/min >60 [facility] Comment on above: GFR Calc Estimated GFR (MDRD) Non-Af Amer 85 mL/min >60 [facility] Comment on above: Non- GFR Calc Thyroid Stimulating Hormone (TSH) 1.72 uIU/mL 0.358-3.74 [facility] Vitamin D 25-Hydroxy 51.1 ng/mL [facility] Comment on above: Vitamin D 25(OH) Sta tus Range Deficiency <20 ng/mL (50nmol/L) Insufficiency 20 - 30 ng/mL (50 - 75 nmol/L) Sufficiency 30 - 100 ng/mL (75 - 250 nmol/L) Toxicity >100 ng/mL (>250 nmol/L) Platelets bldOrdered By: Price Herndon on 06-05-2023 Platelets (Bld) [#/Vol] 238 10*3/uL 150-450 [facility] Serum or plasma albumin jake urement (mass/volume)Ordered By: Price Herndon on 06-05-2023 Albumin [Mass/Vol] 3.3 g/dL 3.2-5.0 [facility] Serum or plasma albumin/glob ulin mass ratioOrdered By: Price Herndon on 06-05-2023 Albumin/Globulin [Mass ratio] 1.0 {ratio} 0.9-2.4 [facility] Serum or plasma calcium jake urement (mass/volume)Ordered By: Price Herndon on 06-05-2023 Calcium [Mass/Vol] 8.9 mg/dL 8.5-10.1 [facility] Serum or plasma creatinine m easurement (mass/volume)Ordered By: Price Herndon on 06-05-2023 Creatinine [Mass/Vol] 0.91 mg/dL 0.70-1.30 [facility] Comment on above: The validity of the calculated GFR & GFRAA in patients over 70 years has not been determined. Clinical correlation is essential. Serum or plasma urea nitroge n measurement (mass/volume)Ordered By: Price Herndon on 06-05-2023 Urea nitrogen [Mass/Vol] 16 mg/dL 7-18 [facility] Thin prep Papanicolaou smear with manual screeningOrdered By: Price Herndon 06-05-2023 Thin prep Papanicolaou smear with manual screening 17 U/L 15-37 [facility] Thin prep Papanicolaou smear with manual screening 7 5-15 [facility] Absolute lymphocyte countOrd ered By: Price Herndon on 05-17-2023 Lymphocytes Auto (Unsp spec) [#/Vol] 1.01 10*3/uL 0.83-4.51 [facility] Basophil percentageOrdered B y: Price Herndon on 05-17-2023 Basophils/100 WBC (Bld) 0.8 % 0-[address] [facility] Eosinophils/100 WBC (Bld) 2.9 % 0-5 [facility] Neutrophils (Bld) [#/Vol] 3.2 10*3/uL 2.0-7.7 [facility] Neutrophils/100 WBC (Bld) 66.0 % 47-70 [facility] WBC (Bld) [#/Vol] 4.8 10*3/uL 4.4-11.0 [facility] Blood erythrocytes count (nu mber/volume)Ordered By: Price Herndon on 05-17-2023 RBC (Bld) [#/Vol] 3.30 10*6/uL 4.6-6.2 [facility] Blood hemoglobin measurement (mass/volume)Ordered By: Price Herndon on 05-17-2023 Hemoglobin (Bld) [Mass/Vol] 10.7 g/dL 13.0-16.5 [facility] Blood lymphocytes/100 leukoc ytesOrdered By: Price Herndon on 05-17-2023 Lymphocytes/100 WBC (Bld) 21.1 % 19-41 [facility] Blood monocytes/100 leukocyt esOrdered By: Price Herndon on 05-17-2023 Monocytes/100 WBC (Bld) 9.0 % 0-[address] [facility] Blood platelet mean volumeOr dered By: [facility] on 05-17-2023 Platelet mean volume (Bld) [Entitic vol] 8.7 fL 6.2-12.0 [facility] Determination of erythrocyte mean corpuscular volume (MCV)Ordered By: Price Herndon on 05-17-2023 MCV (RBC) [Entitic vol] 101.2 fL 80-[address] [facility] Hematocrit Auto (Bld) [Volum e fraction]Ordered By: [facility] on 05-17-2023 Hematocrit (Bld) [Volume fraction] 33.4 % 40-54 [facility] - Hematology and Cell countsOrdered By: [facility] on 05-17-2023 Erythrocyte distribution width (RBC) [Entitic vol] 51.0 fL 35.1-43.9 [facility] Erythrocyte distribution width (RBC) [Ratio] 13.6 % 11.6-14.6 [facility] Immature granulocytes/100 WBC (Bld) 0.200 % 0.0-0.9 [facility] Comment on above: IG% - Immature Granu locytes (promyelocytes, myelocytes and metamyelocytes) > 1% indicates that a LEFT SHIFT is Present. MCH (RBC) [Entitic mass] 32.4 pg 27.0-32.0 [facility] Nucleated RBC/100 WBC (Bld) [Ratio] 0 % 0-5 [facility] MCHC Auto (RBC) [Mass/Vol]Or dered By: Price Herndon on 05-17-2023 MCHC (RBC) [Mass/Vol] 32.0 g/dL 32-36 [facility] Platelets bldOrdered By: Price Herndon on 05-17-2023 Platelets (Bld) [#/Vol] 315 10*3/uL 150-450 [facility] Absolute lymphocyte countOrd ered By: Price Herndon on 04-27-2023 Lymphocytes Auto (Unsp spec) [#/Vol] 0.63 10*3/uL 0.83-4.51 [facility] Basophil percentageOrdered B y: Price Herndon on 04-27-2023 Basophils/100 WBC (Bld) 0.5 % 0-[address] [facility] Eosinophils/100 WBC (Bld) 1.4 % 0-5 [facility] Neutrophils (Bld) [#/Vol] 5.0 10*3/uL 2.0-7.7 [facility] Neutrophils/100 WBC (Bld) 80.3 % 47-70 [facility] WBC (Bld) [#/Vol] 6.3 10*3/uL 4.4-11.0 [facility] Blood erythrocytes count (nu mber/volume)Ordered By: Prcie Herndon on 04-27-2023 RBC (Bld) [#/Vol] 3.00 10*6/uL 4.6-6.2 [facility] Blood hemoglobin measurement (mass/volume)Ordered By: Price Herndon on 04-27-2023 Hemoglobin (Bld) [Mass/Vol] 9.9 g/dL 13.0-16.5 [facility] Blood lymphocytes/100 leukoc ytesOrdered By: Price Herndon on 04-27-2023 Lymphocytes/100 WBC (Bld) 10.1 % 19-41 [facility] Blood monocytes/100 leukocyt esOrdered By: Price Herndon on 04-27-2023 Monocytes/100 WBC (Bld) 7.5 % 0-[address] [facility] Blood platelet mean volumeOr dered By: Price Herndon on 04-27-2023 Platelet mean volume (Bld) [Entitic vol] 8.9 fL 6.2-12.0 [facility] Determination of erythrocyte mean corpuscular volume (MCV)Ordered By: Price Herndon on 04-27-2023 MCV (RBC) [Entitic vol] 100.3 fL 80-[address] [facility] Hematocrit Auto (Bld) [Volum e fraction]Ordered By: Price Herndon on 04-27-2023 Hematocrit (Bld) [Volume fraction] 30.1 % 40-54 [facility] - Hematology and Cell countsOrdered By: [facility]23 Erythrocyte distribution width (RBC) [Entitic vol] 50.4 fL 35.1-43.9 [facility] Erythrocyte distribution width (RBC) [Ratio] 13.7 % 11.6-14.6 [facility] Immature granulocytes/100 WBC (Bld) 0.200 % 0.0-0.9 [facility] Comment on above: IG% - Immature Granu locytes (promyelocytes, myelocytes and metamyelocytes) > 1% indicates that a LEFT SHIFT is Present. MCH (RBC) [Entitic mass] 33.0 pg 27.0-32.0 [facility] Nucleated RBC/100 WBC (Bld) [Ratio] 0 % 0-5 [facility] MCHC Auto (RBC) [Mass/Vol]Or dered By: Price Herndon on 04-27-2023 MCHC (RBC) [Mass/Vol] 32.9 g/dL 32-36 [facility] Platelets bldOrdered By: Price Herndon on 04-27-2023 Platelets (Bld) [#/Vol] 347 10*3/uL 150-450 [facility] Basophil percentageOrdered B y: Burton Quinn on 04-20-2023 WBC (Bld) [#/Vol] 6.2 10*3/uL 4.4-11.0 [facility] Blood erythrocytes count (nu mber/volume)Ordered By: Burton Quinn on 04-20-2023 RBC (Bld) [#/Vol] 3.24 10*6/uL 4.6-6.2 [facility] Blood hemoglobin measurement (mass/volume)Ordered By: Burton Quinn on 04-20-2023 Hemoglobin (Bld) [Mass/Vol] 10.6 g/dL 13.0-16.5 [facility] Blood platelet mean volumeOr dered By: Burton Quinn on 04-20-2023 Platelet mean volume (Bld) [Entitic vol] 9.8 fL 6.2-12.0 [facility] Determination of erythrocyte mean corpuscular volume (MCV)Ordered By: Burton Quinn on 04-20-2023 MCV (RBC) [Entitic vol] 101.2 fL 80-[address] [facility] Hematocrit Auto (Bld) [Volum e fraction]Ordered By: Burton Quinn on 04-20-2023 Hematocrit (Bld) [Volume fraction] 32.8 % 40-54 [facility] Laboratory - Hematology and Cell countsOrdered By: Burton Quinn on 04-20-2023 Erythrocyte distribution width (RBC) [Entitic vol] 51.1 fL 35.1-43.9 [facility] Erythrocyte distribution width (RBC) [Ratio] 13.6 % 11.6-14.6 [facility] MCH (RBC) [Entitic mass] 32.7 pg 27.0-32.0 [facility] MCHC Auto (RBC) [Mass/Vol]Or dered By: Burton Quinn on 04-20-2023 MCHC (RBC) [Mass/Vol] 32.3 g/dL 32-36 [facility] Platelets bldOrdered By: Mahin Quinn on 04-20-2023 Platelets (Bld) [#/Vol] 174 10*3/uL 150-450 [facility] Basophil percentageOrdered B y: Burton Quinn on 04-19-2023 Chloride [Moles/Vol] 104 mmol/L 98-107 [facility] Glucose [Mass/Vol] 128 mg/dL 74-106 [facility] Comment on above: Fasting Glucose resu lt greater than or equal to 126 mg/dL suggests DIABETES MELLITUS per A.D.A. criteria. Potassium [Moles/Vol] 4.7 mmol/L 3.5-5.1 [facility] Sodium [Moles/Vol] 137 mmol/L 136-145 [facility] Laboratory - Chemistry and C hemistry - challengeOrdered By: Burton Quinn on 04-19-2023 CO2 [Moles/Vol] 30.0 mmol/L 21.0-32.0 [facility] Urea nitrogen/Creatinine [Mass ratio] 12.7 mg/mg 10-20 [facility] No Panel InformationOrdered By: Burton Quinn on 04-19-2023 Estimated Creatinine Clearance Calc 71.09 ml/min [facility] Estimated GFR (MDRD) Amer 109 mL/min >60 [facility] Comment on above: GFR Calc Estimated GFR (MDRD) Non-Af Amer 90 mL/min >60 [facility] Comment on above: Non- GFR Calc Serum or plasma calcium jake urement (mass/volume)Ordered By: Burton Quinn on 04-19-2023 Calcium [Mass/Vol] 8.7 mg/dL 8.5-10.1 [facility] Serum or plasma creatinine m easurement (mass/volume)Ordered By: Burton Quinn on 04-19-2023 Creatinine [Mass/Vol] 0.87 mg/dL 0.70-1.30 [facility] Comment on above: The validity of the calculated GFR & GFRAA in patients over 70 years has not been determined. Clinical correlation is essential. Serum or plasma urea nitroge n measurement (mass/volume)Ordered By: Burton Quinn on 04-19-2023 Urea nitrogen [Mass/Vol] 11 mg/dL 7-18 [facility] Thin prep Papanicolaou smear with manual screeningOrdered By: Burton Quinn on 04-19-2023 Thin prep Papanicolaou smear with manual screening 3 5-15 [facility] Glucose Glucometer (BldC) [M ass/Vol]Ordered By: Burton Quinn on 04-18-2023 Glucose [Mass/Vol] 137 mg/dL 74-106 [facility] Comment on above: MANAGEMENT OF PATIEN T CARE PER NURSING PROTOCOL Laboratory - Chemistry and C hemistry - challengeOrdered By: Juan Sevilla on 04-12-2023 Magnesium [Mass/Vol] 2.3 mg/dL 1.6-2.6 [facility] No Panel InformationOrdered By: Burton Quinn on 04-12-2023 Fructosamine 239 umol/L 0-285 [facility] Comment on above: Published reference interval for apparently healthysubjects between age 20 and 60 is 205 - 285 umol/L and in apoorly controlled diabetic population is 228 - 563 umol/Lwith a mean of 396 umol/L.Performed at: [facility] [id number] Director: Vivek Llanes PhD, Phone: [phone] Nasal Screen MRSA/MSSA [facility] Whole blood hemoglobin A1c/t otal hemoglobin ratio (mass fraction)Ordered By: Burton Quinn on 04-12-2023 HbA1c (Bld) [Mass fraction] 5.6 % 3.8-5.6 [facility] Comment on above: Normal < 5.7 % Predi abetic 5.7 - 6.4 % Diabetic >or= 6.5 % Please note range changes. Absolute lymphocyte countOrd ered By: Kenzie Iraheta on 03-23-2023 Lymphocytes Auto (Unsp spec) [#/Vol] 1.00 10*3/uL 0.83-4.51 [facility] Basophil percentageOrdered B y: Kenzie Iraheta on 03-23-2023 Basophils/100 WBC (Bld) 1.0 % 0-1 [facility] Bilirubin [Mass/Vol] 0.40 mg/dL 0.20-1.00 [facility] Comment on above: For patients on eltr ombopag therapy, use of Dimension [place] TBIL is not recommended. Chloride [Moles/Vol] 104 mmol/L 98-107 [facility] Eosinophils/100 WBC (Bld) 3.4 % 0-5 [facility] Glucose [Mass/Vol] 112 mg/dL 74-106 [facility] Comment on above: Fasting Glucose resu lt from 100 to 125 mg/dL suggests IMPAIRED HOMEOSTASIS per A.D.A. criteria. Neutrophils (Bld) [#/Vol] 3.5 10*3/uL 2.0-7.7 [facility] Neutrophils/100 WBC (Bld) 68.3 % 47-70 [facility] Potassium [Moles/Vol] 4.3 mmol/L 3.5-5.1 [facility] Protein [Mass/Vol] 6.8 g/dL 6.4-8.2 [facility] Sodium [Moles/Vol] 137 mmol/L 136-145 [facility] WBC (Bld) [#/Vol] 5.1 10*3/uL 4.4-11.0 [facility] Blood erythrocytes count (nu mber/volume)Ordered By: Kenzie Iraheta on 03-23-2023 RBC (Bld) [#/Vol] 3.91 10*6/uL 4.6-6.2 [facility] Blood hemoglobin measurement (mass/volume)Ordered By: Kenzie Iraheta on 03-23-2023 Hemoglobin (Bld) [Mass/Vol] 12.9 g/dL 13.0-16.5 [facility] Blood lymphocytes/100 leukoc ytesOrdered By: Kenzie Iraheta on 03-23-2023 Lymphocytes/100 WBC (Bld) 19.8 % 19-41 [facility] Blood monocytes/100 leukocyt esOrdered By: Kenzie Iraheta on 03-23-2023 Monocytes/100 WBC (Bld) 7.3 % 0-[address] [facility] Blood platelet mean volumeOr dered By: Kenzie Iraheta on 03-23-2023 Platelet mean volume (Bld) [Entitic vol] 9.5 fL 6.2-12.0 [facility] Determination of erythrocyte mean corpuscular volume (MCV)Ordered By: Kenzie Iraheta on 03-23-2023 MCV (RBC) [Entitic vol] 99.2 fL 80-[address] [facility] Hematocrit Auto (Bld) [Volum e fraction]Ordered By: Kenzie Iraheta on 03-23-2023 Hematocrit (Bld) [Volume fraction] 38.8 % 40-54 [facility] INR in Blood by Coagulation assayOrdered By: Kenzie Iraheta on 03-23-2023 INR Coag (Bld) [Relative time] 1.0 {INR} [facility] Laboratory - Chemistry and C hemistry - challengeOrdered By: Kenzie Iraheta on 03-23-2023 ALP [Catalytic activity/Vol] 85 U/L 45-117 [facility] ALT [Catalytic activity/Vol] 32 U/L 16-61 [facility] CO2 [Moles/Vol] 30.0 mmol/L 21.0-32.0 [facility] Globulin (S) [Mass/Vol] 3.4 g/dL 2.2-4.[address] [facility] Urea nitrogen/Creatinine [Mass ratio] 15.0 mg/mg 10-20 [facility] Laboratory - CoagulationOrde red By: Kenzie Iraheta on 03-23-2023 PT Coag (PPP) [Time] 13.4 s 11.7-14.9 [facility] Laboratory - Hematology and Cell countsOrdered By: Kenzie Iraheta on 03-23-2023 Erythrocyte distribution width (RBC) [Entitic vol] 50.4 fL 35.1-43.9 [facility] Erythrocyte distribution width (RBC) [Ratio] 13.8 % 11.6-14.6 [facility] Immature granulocytes/100 WBC (Bld) 0.200 % 0.0-0.9 [facility] Comment on above: IG% - Immature Granu locytes (promyelocytes, myelocytes and metamyelocytes) > 1% indicates that a LEFT SHIFT is Present. MCH (RBC) [Entitic mass] 33.0 pg 27.0-32.0 [facility] Nucleated RBC/100 WBC (Bld) [Ratio] 0 % 0-5 [facility] MCHC Auto (RBC) [Mass/Vol]Or dered By: Kenzie Iraheta on 03-23-2023 MCHC (RBC) [Mass/Vol] 33.2 g/dL 32-36 [facility] No Panel InformationOrdered By: Kenzie Iraheta on 03-23-2023 Estimated GFR (MDRD) Amer 93 mL/min >60 [facility] Comment on above: GFR Calc Estimated GFR (MDRD) Non-Af Amer 77 mL/min >60 [facility] Comment on above: Non- GFR Calc Platelets bldOrdered By: Lizabeth Iraheta on 03-23-2023 Platelets (Bld) [#/Vol] 220 10*3/uL 150-450 [facility] Serum or plasma albumin jake urement (mass/volume)Ordered By: Kenzie Iraheta on 03-23-2023 Albumin [Mass/Vol] 3.4 g/dL 3.2-5.0 [facility] Serum or plasma albumin/glob ulin mass ratioOrdered By: Kenzie Iraheta on 03-23-2023 Albumin/Globulin [Mass ratio] 1.0 {ratio} 0.9-2.4 [facility] Serum or plasma calcium jake urement (mass/volume)Ordered By: Kenzie Iraheta on 03-23-2023 Calcium [Mass/Vol] 9.1 mg/dL 8.5-10.1 [facility] Serum or plasma creatinine m easurement (mass/volume)Ordered By: Kenzie Iraheta on 03-23-2023 Creatinine [Mass/Vol] 1.00 mg/dL 0.70-1.30 [facility] Comment on above: The validity of the calculated GFR & GFRAA in patients over 70 years has not been determined. Clinical correlation is essential. Serum or plasma urea nitroge n measurement (mass/volume)Ordered By: Kenzie Iraheta on 03-23-2023 Urea nitrogen [Mass/Vol] 15 mg/dL 7-18 [facility] Thin prep Papanicolaou smear with manual screeningOrdered By: Kenzie Iraheta on 03-23-2023 Thin prep Papanicolaou smear with manual screening 21 U/L 15-37 [facility] Thin prep Papanicolaou smear with manual screening 3 5-15 [facility] Absolute lymphocyte countOrd ered By: Dr. Greenberg on 02-20-2023 Lymphocytes Auto (Unsp spec) [#/Vol] 0.80 10*3/uL 0.83-4.51 [facility] Basophil percentageOrdered B y: Dr. Greenberg on 02-20-2023 Basophil percentage 0-5 SEEN /hpf 0-5 [facility] Basophils/100 WBC (Bld) 0.4 % 0-[address] [facility] Chloride [Moles/Vol] 106 mmol/L 98-107 [facility] Eosinophils/100 WBC (Bld) 2.3 % 0-5 [facility] Glucose [Mass/Vol] 155 mg/dL 74-106 [facility] Comment on above: Fasting Glucose resu lt greater than or equal to 126 mg/dL suggests DIABETES MELLITUS per A.D.A. criteria. Neutrophils (Bld) [#/Vol] 3.6 10*3/uL 2.0-7.7 [facility] Neutrophils/100 WBC (Bld) 73.9 % 47-70 [facility] Potassium [Moles/Vol] 4.7 mmol/L 3.5-5.1 [facility] Sodium [Moles/Vol] 143 mmol/L 136-145 [facility] WBC (Bld) [#/Vol] 4.9 10*3/uL 4.4-11.0 [facility] Bilirubin Test strip Ql (U)O rdered By: Dr. Greenberg on 02-20-2023 Bilirubin Ql (U) 1 mg/dL Negative [facility] Comment on above: COLOR OF URINE MAY A FFECT DIPSTICK RESULTS. Blood erythrocytes count (nu mber/volume)Ordered By: Dr. Greenberg on 02-20-2023 RBC (Bld) [#/Vol] 3.82 10*6/uL 4.6-6.2 [facility] Blood hemoglobin measurement (mass/volume)Ordered By: Dr. Greenberg on 02-20-2023 Hemoglobin (Bld) [Mass/Vol] 12.6 g/dL 13.0-16.5 [facility] Blood lymphocytes/100 leukoc ytesOrdered By: Dr. Greenberg on 02-20-2023 Lymphocytes/100 WBC (Bld) 16.4 % 19-41 [facility] Blood monocytes/100 leukocyt esOrdered By: Dr. Greenberg on 02-20-2023 Monocytes/100 WBC (Bld) 6.6 % 0-[address] [facility] Blood platelet mean volumeOr dered By: Dr. Greenberg on 02-20-2023 Platelet mean volume (Bld) [Entitic vol] 8.7 fL 6.2-12.0 [facility] Determination of erythrocyte mean corpuscular volume (MCV)Ordered By: Dr. Greenberg on 02-20-2023 MCV (RBC) [Entitic vol] 100.3 fL 80-[address] [facility] Hematocrit Auto (Bld) [Volum e fraction]Ordered By: Dr. Greenberg on 02-20-2023 Hematocrit (Bld) [Volume fraction] 38.3 % 40-54 [facility] Hyaline casts LM.LPF (Urine sed) [#/Area]Ordered By: Dr. Greenberg on 02-20-2023 Hyaline casts (Urine sed) [#/Area] 10 /[LPF] 0-5 [facility] INR in Blood by Coagulation assayOrdered By: Dr. Greenberg on 02-20-2023 INR Coag (Bld) [Relative time] 1.0 {INR} [facility] Ketones Test strip Ql (U)Ord ered By: Dr. Greenberg on 02-20-2023 Ketones Ql (U) 15 mg/dl Negative [facility] Laboratory - Chemistry and C hemistry - challengeOrdered By: Dr. Greenberg on 02-20-2023 CO2 [Moles/Vol] 30.0 mmol/L 21.0-32.0 [facility] Urea nitrogen/Creatinine [Mass ratio] 11.8 mg/mg 10-20 [facility] Laboratory - CoagulationOrde red By: Dr. Greenberg on 02-20-2023 aPTT Coag (Bld) [Time] 26.9 s 24.1-36.2 [facility] PT Coag (PPP) [Time] 13.5 s 11.7-14.9 [facility] Laboratory - Hematology and Cell countsOrdered By: Dr. Greenberg on 02-20-2023 Erythrocyte distribution width (RBC) [Entitic vol] 50.2 fL 35.1-43.9 [facility] Erythrocyte distribution width (RBC) [Ratio] 13.5 % 11.6-14.6 [facility] Immature granulocytes/100 WBC (Bld) 0.400 % 0.0-0.9 [facility] Comment on above: IG% - Immature Granu locytes (promyelocytes, myelocytes and metamyelocytes) > 1% indicates that a LEFT SHIFT is Present. MCH (RBC) [Entitic mass] 33.0 pg 27.0-32.0 [facility] Nucleated RBC/100 WBC (Bld) [Ratio] 0 % 0-5 [facility] MCHC Auto (RBC) [Mass/Vol]Or dered By: Dr. Greenberg on 02-20-2023 MCHC (RBC) [Mass/Vol] 32.9 g/dL 32-36 [facility] Mucus LM Ql (Urine sed)Order ed By: Dr. Greenberg on 02-20-2023 Mucus Ql (Urine sed) 0 SEEN /hpf [facility] Nitrite Test strip Ql (U)Ord ered By: Dr. Greenberg on 02-20-2023 Nitrite Ql (U) Positive Negative [facility] No Panel InformationOrdered By: Dr. Greenberg on 02-20-2023 Troponin I High Sensitivity 7 pg/mL 3.0-78.0 [facility] Comment on above: Please Note: [place] t Units and Gender Specific Reference Ranges. For more information see Policy Stat Procedure [place] High Sensitivity Troponin (TNIH) and attachments. D-Dimer Quantitative (PE/DVT) 0.62 FEU/ug/m 0.27-0.49 [facility] Comment on above: CRITICAL VALUE VERIF IED. CALLED TO ANASTACIO STAFFORD RN ER02/20/23 1625 Santiago Conner.RESULTS READ BACK BY SAME . D-Dimer ELEVATED (>0.49): Additional studies and clinicalassessments are indicated to conclude diagnosis of:Deep Vein Thrombosis (DVT) or Pulmonary Embolism (PE) Estimated Creatinine Clearance Calc 51.97 ml/min [facility] Estimated GFR (MDRD) Amer 76 mL/min >60 [facility] Comment on above: GFR Calc Estimated GFR (MDRD) Non-Af Amer 63 mL/min >60 [facility] Comment on above: Non- GFR Calc Platelets bldOrdered By: Dr. Greenberg on 02-20-2023 Platelets (Bld) [#/Vol] 180 10*3/uL 150-450 [facility] Protein Test strip Ql (U)Ord ered By: Dr. Greenberg on 02-20-2023 Protein Ql (U) 30 mg/dl Negative [facility] Serum or plasma calcium jake urement (mass/volume)Ordered By: Dr. Greenberg on 02-20-2023 Calcium [Mass/Vol] 9.3 mg/dL 8.5-10.1 [facility] Serum or plasma creatinine m easurement (mass/volume)Ordered By: Dr. Greenberg on 02-20-2023 Creatinine [Mass/Vol] 1.19 mg/dL 0.70-1.30 [facility] Comment on above: The validity of the calculated GFR & GFRAA in patients over 70 years has not been determined. Clinical correlation is essential. Serum or plasma urea nitroge n measurement (mass/volume)Ordered By: Dr. Greenberg on 02-20-2023 Urea nitrogen [Mass/Vol] 14 mg/dL 7-18 [facility] Squamous epithelial cells de tection in urine sediment by light microscopyOrdered By: Dr. Greenberg on 02-20-2023 Epithelial cells.squamous LM Ql (Urine sed) 0 SEEN /hpf 0-5 [facility] Thin prep Papanicolaou smear with manual screeningOrdered By: Dr. Greenberg on 02-20-2023 Thin prep Papanicolaou smear with manual screening 7 5-15 [facility] Urine blood detectionOrdered By: Dr. Greenberg on 02-20-2023 RBC Ql (U) 10 /ul Negative [facility] RBC Ql (U) 0 SEEN /hpf 0-5 [facility] Urine clarityOrdered By: Dr. Greenberg on 02-20-2023 Clarity (U) Clear Clear [facility] Urine color determinationOrd ered By: Dr. Greenberg on 02-20-2023 Color (U) Janelle Yellow [facility] Urine glucose detectionOrder ed By: Dr. Greenberg on 02-20-2023 Glucose Ql (U) Normal mg/dl Normal [facility] Urine leukocyte esterase det ection by dipstickOrdered By: Dr. Greenberg on 02-20-2023 Leukocyte esterase Test strip Ql (U) 25 /ul Negative [facility] Urine pHOrdered By: Dr. Lance maldonado on 02-20-2023 pH (U) 5.0 [pH] 5.0 - 8.0 [facility] Urine sediment bacteria coun t by microscopy (number/high power field)Ordered By: Dr. Greenberg on 02-20-2023 Bacteria LM.HPF (Urine sed) [#/Area] 0 /[HPF] None Seen [facility] Urine specific gravity measu rementOrdered By: Dr. Greenberg on 02-20-2023 Specific gravity (U) [Rel density] 1.030 1.002-1.030 [facility] Urobilinogen Auto test strip Ql (U)Ordered By: Dr. Greenberg on 02-20-2023 Urobilinogen Ql (U) 4 mg/dl Normal [facility] Absolute lymphocyte countOrd ered By: Dr. Herndon on 01-24-2023 Lymphocytes Auto (Unsp spec) [#/Vol] 1.13 10*3/uL 0.83-4.51 [facility] Basophil percentageOrdered B y: Dr. Herndon on 01-24-2023 Basophils/100 WBC (Bld) 0.9 % 0-[address] [facility] Bilirubin [Mass/Vol] 0.50 mg/dL 0.20-1.00 [facility] Comment on above: For patients on eltr ombopag therapy, use of Dimension [place] TBIL is not recommended. Chloride [Moles/Vol] 103 mmol/L 98-107 [facility] Eosinophils/100 WBC (Bld) 7.3 % 0-5 [facility] Glucose [Mass/Vol] 108 mg/dL 74-106 [facility] Comment on above: Fasting Glucose resu lt from 100 to 125 mg/dL suggests IMPAIRED HOMEOSTASIS per A.D.A. criteria. Neutrophils (Bld) [#/Vol] 2.6 10*3/uL 2.0-7.7 [facility] Neutrophils/100 WBC (Bld) 58.1 % 47-70 [facility] Potassium [Moles/Vol] 3.9 mmol/L 3.5-5.1 [facility] Protein [Mass/Vol] 6.7 g/dL 6.4-8.2 [facility] Sodium [Moles/Vol] 139 mmol/L 136-145 [facility] WBC (Bld) [#/Vol] 4.5 10*3/uL 4.4-11.0 [facility] Blood erythrocytes count (nu mber/volume)Ordered By: Dr. Herndon on 01-24-2023 RBC (Bld) [#/Vol] 4.16 10*6/uL 4.6-6.2 [facility] Blood hemoglobin measurement (mass/volume)Ordered By: Dr. Herndon on 01-24-2023 Hemoglobin (Bld) [Mass/Vol] 13.4 g/dL 13.0-16.5 [facility] Blood lymphocytes/100 leukoc ytesOrdered By: Dr. Herndon on 01-24-2023 Lymphocytes/100 WBC (Bld) 24.9 % 19-41 [facility] Blood monocytes/100 leukocyt esOrdered By: Dr. Herndon on 01-24-2023 Monocytes/100 WBC (Bld) 8.8 % 0-[address] [facility] Blood platelet mean volumeOr dered By: Dr. Herndon on 01-24-2023 Platelet mean volume (Bld) [Entitic vol] 10.0 fL 6.2-12.0 [facility] Determination of erythrocyte mean corpuscular volume (MCV)Ordered By: Dr. Herndon on 01-24-2023 MCV (RBC) [Entitic vol] 100.2 fL 80-[address] [facility] Hematocrit Auto (Bld) [Volum e fraction]Ordered By: Dr. Herndon on 01-24-2023 Hematocrit (Bld) [Volume fraction] 41.7 % 40-54 [facility] Laboratory - Chemistry and C hemistry - challengeOrdered By: Dr. Herndon on 01-24-2023 ALP [Catalytic activity/Vol] 82 U/L 45-117 [facility] ALT [Catalytic activity/Vol] 40 U/L 16-61 [facility] CO2 [Moles/Vol] 31.0 mmol/L 21.0-32.0 [facility] Cobalamin (Vitamin B12) [Mass/Vol] 1091 pg/mL 211-911 [facility] Globulin (S) [Mass/Vol] 3.2 g/dL 2.2-4.[address] [facility] Urea nitrogen/Creatinine [Mass ratio] 15.3 mg/mg 10-20 [facility] Laboratory - Hematology and Cell countsOrdered By: Dr. Herndon on 01-24-2023 Erythrocyte distribution width (RBC) [Entitic vol] 52.3 fL 35.1-43.9 [facility] Erythrocyte distribution width (RBC) [Ratio] 14.0 % 11.6-14.6 [facility] Immature granulocytes/100 WBC (Bld) 0.000 % 0.0-0.9 [facility] Comment on above: IG% - Immature Granu locytes (promyelocytes, myelocytes and metamyelocytes) > 1% indicates that a LEFT SHIFT is Present. MCH (RBC) [Entitic mass] 32.2 pg 27.0-32.0 [facility] Nucleated RBC/100 WBC (Bld) [Ratio] 0 % 0-5 [facility] MCHC Auto (RBC) [Mass/Vol]Or dered By: Dr. Herndon on 01-24-2023 MCHC (RBC) [Mass/Vol] 32.1 g/dL 32-36 [facility] No Panel InformationOrdered By: Dr. Herndon on 01-24-2023 Estimated GFR (MDRD) Amer 95 mL/min >60 [facility] Comment on above: GFR Calc Estimated GFR (MDRD) Non-Af Amer 79 mL/min >60 [facility] Comment on above: Non- GFR Calc Thyroid Stimulating Hormone (TSH) 1.05 uIU/mL 0.358-3.74 [facility] Vitamin D 25-Hydroxy 52.7 ng/mL [facility] Comment on above: Vitamin D 25(OH) Sta tus Range Deficiency <20 ng/mL (50nmol/L) Insufficiency 20 - 30 ng/mL (50 - 75 nmol/L) Sufficiency 30 - 100 ng/mL (75 - 250 nmol/L) Toxicity >100 ng/mL (>250 nmol/L) Platelets bldOrdered By: Dr. Herndon on 01-24-2023 Platelets (Bld) [#/Vol] 231 10*3/uL 150-450 [facility] Serum or plasma albumin jake urement (mass/volume)Ordered By: Dr. Herndon on 01-24-2023 Albumin [Mass/Vol] 3.5 g/dL 3.2-5.0 [facility] Serum or plasma albumin/glob ulin mass ratioOrdered By: Dr. Herndon on 01-24-2023 Albumin/Globulin [Mass ratio] 1.1 {ratio} 0.9-2.4 [facility] Serum or plasma calcium jake urement (mass/volume)Ordered By: Dr. Herndon on 01-24-2023 Calcium [Mass/Vol] 9.1 mg/dL 8.5-10.1 [facility] Serum or plasma creatinine m easurement (mass/volume)Ordered By: Dr. Herndon on 01-24-2023 Creatinine [Mass/Vol] 0.98 mg/dL 0.70-1.30 [facility] Comment on above: The validity of the calculated GFR & GFRAA in patients over 70 years has not been determined. Clinical correlation is essential. Serum or plasma urea nitroge n measurement (mass/volume)Ordered By: Dr. Herndon on 01-24-2023 Urea nitrogen [Mass/Vol] 15 mg/dL 7-18 [facility] Thin prep Papanicolaou smear with manual screeningOrdered By: Dr. Herndon on 01-24-2023 Thin prep Papanicolaou smear with manual screening 26 U/L 15-37 [facility] Thin prep Papanicolaou smear with manual screening 5 5-15 [facility] Laboratory - Microbiology an d Antimicrobial susceptibilityon 09-05-2022 SARS-CoV-2 (COVID-19) RNA AMY+probe Ql (Unsp spec) Not detected Not Detect [facility] Work Phone: Comment on above: Normal Reference Ran ge: Not DetectedMethod:(RT-PCR) real-time reverse transcriptase PCRLuminex FELICIA Instrument*The Food and Drug Administration (FDA) has issued an Emergency Use Authorization (EAU) for the FELICIA SARS-CoV-2 Assay for the rapid detection of the virus that causes COVID-19. This test has been validated, but the FDAs independent review of this validation is pending.*Negative results do not preclude infection and should not be used as the sole basis for treatment or patient management. Optimum specimen types and timing for peak viral levels during infections caused by SARS-CoV-2 have not been determined. Collection of multiple specimens from the same patient may be necessary to detect the virus. The possibility of a false negative result should be considered if the patient has clinical presentation or has had recent exposure. Absolute lymphocyte counton 05-25-2022 Lymphocytes Auto (Unsp spec) [#/Vol] 1.55 10*3/uL 0.83-4.51 [facility] Work Phone: Basophil percentageon 2021 Basophils/100 WBC (Bld) 0.4 % 0-[address] [facility] Work Phone: Bilirubin [Mass/Vol] 0.40 mg/dL 0.20-1.00 [facility] Work Phone: Comment on above: For patients on eltr ombopag therapy, use of Dimension [place] TBIL is not recommended. Chloride [Moles/Vol] 101 mmol/L 98-107 [facility] Work Phone: Eosinophils/100 WBC (Bld) 4.6 % 0-5 [facility] Work Phone: Glucose [Mass/Vol] 96 mg/dL 74-106 [facility] Work Phone: Neutrophils (Bld) [#/Vol] 2.4 10*3/uL 2.0-7.7 [facility] Work Phone: Neutrophils/100 WBC (Bld) 51.0 % 47-70 [facility] Work Phone: Potassium [Moles/Vol] 4.5 mmol/L 3.5-5.1 [facility] Work Phone: Protein [Mass/Vol] 6.8 g/dL 6.4-8.2 [facility] Work Phone: Sodium [Moles/Vol] 138 mmol/L 136-145 [facility] Work Phone: WBC (Bld) [#/Vol] 4.8 10*3/uL 4.4-11.0 [facility] Work Phone: Blood erythrocytes count (nu mber/volume)on 05-25-2022 RBC (Bld) [#/Vol] 4.01 10*6/uL 4.6-6.2 [facility] Work Phone: Blood hemoglobin measurement (mass/volume)on 05-25-2022 Hemoglobin (Bld) [Mass/Vol] 13.4 g/dL 13.0-16.5 [facility] Work Phone: Blood lymphocytes/100 leukoc yteson 05-25-2022 Lymphocytes/100 WBC (Bld) 32.5 % 19-41 [facility] Work Phone: Blood monocytes/100 leukocyt eson 05-25-2022 Monocytes/100 WBC (Bld) 11.3 % 0-[address] [facility] Work Phone: Blood platelet mean volumeon 05-25-2022 Platelet mean volume (Bld) [Entitic vol] 10.0 fL 6.2-12.0 [facility] Work Phone: Determination of erythrocyte mean corpuscular volume (MCV)on 05-25-2022 MCV (RBC) [Entitic vol] 99.5 fL 80-[address] [facility] Work Phone: Hematocrit Auto (Bld) [Volum e fraction]on 05-25-2022 Hematocrit (Bld) [Volume fraction] 39.9 % 40-54 [facility] Work Phone: Laboratory - Chemistry and C hemistry - challengeon 05-25-2022 ALP [Catalytic activity/Vol] 80 U/L 45-117 [facility] Work Phone: ALT [Catalytic activity/Vol] 36 U/L 16-61 [facility] Work Phone: CO2 [Moles/Vol] 33.0 mmol/L 21.0-32.0 [facility] Work Phone: [phone] Globulin (S) [Mass/Vol] 3.4 g/dL 2.2-4.[address] [facility] Work Phone: Urea nitrogen/Creatinine [Mass ratio] 15.7 mg/mg 10-20 [facility] Work Phone: Laboratory - Hematology and Cell countson 05-25-2022 Erythrocyte distribution width (RBC) [Entitic vol] 50.4 fL 35.1-43.9 [facility] Work Phone: Erythrocyte distribution width (RBC) [Ratio] 13.8 % 11.6-14.6 [facility] Work Phone: Immature granulocytes/100 WBC (Bld) 0.200 % 0.0-0.9 [facility] Work Phone: [phone] Comment on above: IG% - Immature Granu locytes (promyelocytes, myelocytes and metamyelocytes) > 1% indicates that a LEFT SHIFT is Present. MCH (RBC) [Entitic mass] 33.4 pg 27.0-32.0 [facility] Work Phone: [phone] Nucleated RBC/100 WBC (Bld) [Ratio] 0 % 0-5 [facility] Work Phone: [phone] MCHC Auto (RBC) [Mass/Vol]on 05-25-2022 MCHC (RBC) [Mass/Vol] 33.6 g/dL 32-36 [facility] Work Phone: [phone] Panel Informationon 05-25 Estimated GFR (MDRD) Amer 91 mL/min >60 [facility] Work Phone: [phone] Comment on above: GFR Calc Estimated GFR (MDRD) Non-Af Amer 75 mL/min >60 [facility] Work Phone: [phone] Comment on above: Non- GFR Calc Thyroid Stimulating Hormone (TSH) 1.44 uIU/mL 0.358-3.74 [facility] Work Phone: [phone] Vitamin D 25-Hydroxy 32.5 ng/mL [facility] Work Phone: [phone] Comment on above: Vitamin D 25(OH) Sta tus Range Deficiency <20 ng/mL (50nmol/L) Insufficiency 20 - 30 ng/mL (50 - 75 nmol/L) Sufficiency 30 - 100 ng/mL (75 - 250 nmol/L) Toxicity >100 ng/mL (>250 nmol/L) Platelets bldon 05-25-2022 Platelets (Bld) [#/Vol] 206 10*3/uL 150-450 [facility] Work Phone: [phone] Serum or plasma albumin jake urement (mass/volume)on 05-25-2022 Albumin [Mass/Vol] 3.4 g/dL 3.2-5.0 [facility] Work Phone: [phone] Serum or plasma albumin/glob ulin mass ratioon 05-25-2022 Albumin/Globulin [Mass ratio] 1.0 {ratio} 0.9-2.4 [facility] Work Phone: [phone] Serum or plasma calcium jake urement (mass/volume)on 05-25-2022 Calcium [Mass/Vol] 8.8 mg/dL 8.5-10.1 [facility] Work Phone: [phone] Serum or plasma creatinine m easurement (mass/volume)on 05-25-2022 Creatinine [Mass/Vol] 1.02 mg/dL 0.70-1.30 [facility] Work Phone: [phone] Comment on above: The validity of the calculated GFR & GFRAA in patients over 70 years has not been determined. Clinical correlation is essential. Serum or plasma urea nitroge n measurement (mass/volume)on 05-25-2022 Urea nitrogen [Mass/Vol] 16 mg/dL 7-18 [facility] Work Phone: [phone] Thin prep Papanicolaou smear with manual screeningon 05-25-2022 Thin prep Papanicolaou smear with manual screening 23 U/L 15-37 [facility] Work Phone: [phone] Thin prep Papanicolaou smear with manual screening 4 5-15 [facility] Work Phone: [phone] Absolute lymphocyte counton 01-12-2022 Lymphocytes Auto (Unsp spec) [#/Vol] 1.38 10*3/uL 0.83-4.51 [facility] Work Phone: [phone] Basophil percentageon 2021 Basophils/100 WBC (Bld) 0.7 % 0-[address] [facility] Work Phone: [phone] Bilirubin [Mass/Vol] 0.60 mg/dL 0.20-1.00 [facility] Work Phone: [phone] Comment on above: For patients on eltr ombopag therapy, use of Dimension [place] TBIL is not recommended. Chloride [Moles/Vol] 102 mmol/L 98-107 [facility] Work Phone: Eosinophils/100 WBC (Bld) 4.0 % 0-5 [facility] Work Phone: Glucose [Mass/Vol] 129 mg/dL 74-106 [facility] Work Phone: Comment on above: Fasting Glucose resu lt greater than or equal to 126 mg/dL suggests DIABETES MELLITUS per A.D.A. criteria. Neutrophils (Bld) [#/Vol] 3.8 10*3/uL 2.0-7.7 [facility] Work Phone: Neutrophils/100 WBC (Bld) 63.6 % 47-70 [facility] Work Phone: Potassium [Moles/Vol] 3.7 mmol/L 3.5-5.1 [facility] Work Phone: Protein [Mass/Vol] 7.2 g/dL 6.4-8.2 [facility] Work Phone: Sodium [Moles/Vol] 138 mmol/L 136-145 [facility] Work Phone: WBC (Bld) [#/Vol] 6.0 10*3/uL 4.4-11.0 [facility] Work Phone: Blood erythrocytes count (nu mber/volume)on 01-12-2022 RBC (Bld) [#/Vol] 4.09 10*6/uL 4.6-6.2 [facility] Work Phone: Blood hemoglobin measurement (mass/volume)on 01-12-2022 Hemoglobin (Bld) [Mass/Vol] 13.3 g/dL 13.0-16.5 [facility] Work Phone: Blood lymphocytes/100 leukoc yteson 01-12-2022 Lymphocytes/100 WBC (Bld) 23.1 % 19-41 [facility] Work Phone: Blood monocytes/100 leukocyt eson 01-12-2022 Monocytes/100 WBC (Bld) 8.4 % 0-[address] [facility] Work Phone: [phone] Blood platelet mean volumeon 01-12-2022 Platelet mean volume (Bld) [Entitic vol] 10.0 fL 6.2-12.0 [facility] Work Phone: [phone] Determination of erythrocyte mean corpuscular volume (MCV)on 01-12-2022 MCV (RBC) [Entitic vol] 97.6 fL 80-[address] [facility] Work Phone: [phone] Hematocrit Auto (Bld) [Volum e fraction]on 01-12-2022 Hematocrit (Bld) [Volume fraction] 39.9 % 40-54 [facility] Work Phone: [phone] Laboratory - Chemistry and C hemistry - challengeon 01-12-2022 ALP [Catalytic activity/Vol] 75 U/L 45-117 [facility] Work Phone: [phone] ALT [Catalytic activity/Vol] 38 U/L 16-61 [facility] Work Phone: [phone] CO2 [Moles/Vol] 29.0 mmol/L 21.0-32.0 [facility] Work Phone: [phone] Globulin (S) [Mass/Vol] 3.5 g/dL 2.2-4.[address] [facility] Work Phone: [phone] Urea nitrogen/Creatinine [Mass ratio] 19.0 mg/mg 10-20 [facility] Work Phone: [phone] Laboratory - Hematology and Cell countson 01-12-2022 Erythrocyte distribution width (RBC) [Entitic vol] 47.8 fL 35.1-43.9 [facility] Work Phone: [phone] Erythrocyte distribution width (RBC) [Ratio] 13.3 % 11.6-14.6 [facility] Work Phone: [phone] Immature granulocytes/100 WBC (Bld) 0.200 % 0.0-0.9 [facility] Work Phone: [phone] Comment on above: IG% - Immature Granu locytes (promyelocytes, myelocytes and metamyelocytes) > 1% indicates that a LEFT SHIFT is Present. MCH (RBC) [Entitic mass] 32.5 pg 27.0-32.0 [facility] Work Phone: [phone] Nucleated RBC/100 WBC (Bld) [Ratio] 0 % 0-5 [facility] Work Phone: [phone] MCHC Auto (RBC) [Mass/Vol]on 01-12-2022 MCHC (RBC) [Mass/Vol] 33.3 g/dL 32-36 [facility] Work Phone: No Panel Informationon 01-12 Estimated GFR (MDRD) Amer 88 mL/min >60 [facility] Work Phone: [phone] Comment on above: GFR Calc Estimated GFR (MDRD) Non-Af Amer 73 mL/min >60 [facility] Work Phone: [phone] Comment on above: Non- GFR Calc Thyroid Stimulating Hormone (TSH) 1.22 uIU/mL 0.358-3.74 [facility] Work Phone: [phone] Vitamin D 25-Hydroxy 45.5 ng/mL [facility] Work Phone: [phone] Comment on above: Vitamin D 25(OH) Sta tus Range Deficiency <20 ng/mL (50nmol/L) Insufficiency 20 - 30 ng/mL (50 - 75 nmol/L) Sufficiency 30 - 100 ng/mL (75 - 250 nmol/L) Toxicity >100 ng/mL (>250 nmol/L) Platelets bldon 01-12-2022 Platelets (Bld) [#/Vol] 227 10*3/uL 150-450 [facility] Work Phone: [phone] Serum or plasma albumin jake urement (mass/volume)on 01-12-2022 Albumin [Mass/Vol] 3.7 g/dL 3.2-5.0 [facility] Work Phone: [phone] Serum or plasma albumin/glob ulin mass ratioon 01-12-2022 Albumin/Globulin [Mass ratio] 1.1 {ratio} 0.9-2.4 [facility] Work Phone: [phone] Serum or plasma calcium jake urement (mass/volume)on 01-12-2022 Calcium [Mass/Vol] 9.1 mg/dL 8.5-10.1 [facility] Work Phone: Serum or plasma creatinine m easurement (mass/volume)on 01-12-2022 Creatinine [Mass/Vol] 1.05 mg/dL 0.70-1.30 [facility] Work Phone: Comment on above: The validity of the calculated GFR & GFRAA in patients over 70 years has not been determined. Clinical correlation is essential. Serum or plasma urea nitroge n measurement (mass/volume)on 01-12-2022 Urea nitrogen [Mass/Vol] 20 mg/dL 7-18 [facility] Work Phone: Thin prep Papanicolaou smear with manual screeningon 01-12-2022 Thin prep Papanicolaou smear with manual screening 21 U/L 15-37 [facility] Work Phone: Thin prep Papanicolaou smear with manual screening 7 5-15 [facility] Work Phone: No Panel Information Influenza Types A,B Direct FA (LIZABETH) [facility] Work Phone: RSV Ag EIA RSV Ag Immune stain Ql (Tiss) [facility] Work Phone: Vital Signs Date Time Vital Sign Value Performing Clinician Faci lity 05-09-2025 10:37-0400 Diastolic blood pressure 74 mm[Hg] Dr. Price Herndon MD Work Phone: [facility] 05-09-2025 10:37-0400 Heart rate 97 /min Dr. Price Herndon MD Work Phone: [facility] 05-09-2025 10:37-0400 Respiratory rate 18 /min Dr. Price Herndon MD Work Phone: [facility] 05-09-2025 10:37-0400 SaO2% (BldA) [Mass fraction] 94 % Dr. Price Herndon MD Work Phone: [facility] 05-09-2025 10:37-0400 Systolic blood pressure 147 mm[Hg] Dr. Price Herndon MD Work Phone: [facility] 05-01-2025 10:25-0400 Diastolic blood pressure 73 mm[Hg] Dr. Price Hernodn MD Work Phone: [facility] 05-01-2025 10:25-0400 Heart rate 81 /min Dr. Price Herndon MD Work Phone: [facility] 05-01-2025 10:25-0400 Respiratory rate 18 /min Dr. Price Herndon MD Work Phone: [facility] 05-01-2025 10:25-0400 SaO2% (BldA) [Mass fraction] 96 % Dr. Price Herndon MD Work Phone: [facility] 05-01-2025 10:25-0400 Systolic blood pressure 145 mm[Hg] Dr. Price Herndon MD Work Phone: [phone])958-359588 [place] [address] 04-23-2025 15:14-0400 Diastolic blood pressure 75 mm[Hg] Dr. Price Herndon MD Work Phone: [facility] 04-23-2025 15:14-0400 Heart rate 83 /min Dr. Price Herndon MD Work Phone: [facility] 04-23-2025 15:14-0400 Respiratory rate 18 /min Dr. Price Herndon MD Work Phone: [facility] 04-23-2025 15:14-0400 SaO2% (BldA) [Mass fraction] 92 % Dr. Price Herndon MD Work Phone: [facility] 04-23-2025 15:14-0400 Systolic blood pressure 127 mm[Hg] Dr. Price Herndon MD Work Phone: [phone])677-213488 [place] [address] 04-07-2025 17:03-0400 Body height 177.[address] Price Herndon MD Work Phone: [facility] 04-07-2025 17:03-0400 Body mass index (BMI) [Ratio] 38.2 kg/m2 Dr. Price Herndon MD Work Phone: 0([phone])985-662188 [place] [address] 04-07-2025 17:03-0400 Body weight 121.[address] Price Herndon MD Work Phone: [phone])302-412375 [place] [address] 03-20-2025 08:26-0400 Body height 177.[address] Price Herndon MD Work Phone: [phone])599-479975 [place] [address] 03-20-2025 08:26-0400 Body mass index (BMI) [Ratio] 38.1 kg/m2 Dr. Price Herndon MD Work Phone: 1(291)610-033575 [place] [address] 03-20-2025 08:26-0400 Body weight 120.[address] Price Herndon MD Work Phone: 6(196)888-302675 [place] [address] 03-20-2025 08:26-0400 Diastolic blood pressure 70 mm[Hg] Dr. Price Herndon MD Work Phone: 7(544)660-719575 [place] [address] 03-20-2025 08:26-0400 Heart rate 47 /min Dr. Price Herndon MD Work Phone: 6(900)617-496975 [place] [address] 03-20-2025 08:26-0400 Respiratory rate 18 /min Dr. Price Herndon MD Work Phone: 9(661)345-074775 [place] [address] 03-20-2025 08:26-0400 Systolic blood pressure 112 mm[Hg] Dr. Price Herndon MD Work Phone: 4(779)168-911575 [place] [address] 04-20-2023 08:57-0400 Body temperature 98.3 [degF] Dr. Price Herndon Work Phone: 1(630)579-308175 [place] [address] 04-20-2023 08:57-0400 Diastolic blood pressure 80 mm[Hg] Dr. Price Herndon Work Phone: 5(128)124-159175 [place] [address] 04-20-2023 08:57-0400 Heart rate 88 /min Dr. Price Herndon Work Phone: 3(908)563-892275 [place] [address] 04-20-2023 08:57-0400 Respiratory rate 18 /min Dr. Price Herndon Work Phone: 1(688)757-751588 [place] [address] 04-20-2023 08:57-0400 SaO2% (BldA) [Mass fraction] 95 % Dr. Price Herndon Work Phone: [facility] 04-20-2023 08:57-0400 Systolic blood pressure 153 mm[Hg] Dr. Price Herndon Work Phone: [facility] 04-18-2023 13:28-0400 Body height 177.[address] Price Herndon Work Phone: 9(115)784-185088 [place] [address] 04-18-2023 13:28-0400 Body mass index (BMI) [Ratio] 37.1 kg/m2 Dr. Price Herndon Work Phone: 1(691)499-650888 [place] [address] 04-18-2023 13:28-0400 Body weight 117.[address] Price Herndon Work Phone: 6(248)328-584175 [place] [address] 04-18-2023 12:49-0400 Inhaled oxygen flow rate 4 L/min Dr. Price Herndon Work Phone: 4(895)694-982188 [place] [address] 03-31-2023 10:42-0400 Body height 177.[address] Price Herndon Work Phone: 9(010)255-215288 [place] [address] 03-31-2023 10:42-0400 Body weight 117.[address] Price Herndon Work Phone: 3(371)093-516788 [place] [address] 03-30-2023 08:42-0400 Body mass index (BMI) [Ratio] 37 kg/m2 Dr. Price Herndon Work Phone: 5(970)513-278188 [place] [address] 03-23-2023 09:30-0400 Body mass index (BMI) [Ratio] 37 kg/m2 Dr. Price Herndon Work Phone: 8(589)553-796488 [place] [address] 03-23-2023 09:30-0400 Body weight 117.[address] Price Herndon Work Phone: [facility] 03-23-2023 09:30-0400 Diastolic blood pressure 73 mm[Hg] Dr. Price Herndon Work Phone: [facility] 03-23-2023 09:30-0400 Heart rate 74 /min Dr. Price Herndon Work Phone: [facility] 03-23-2023 09:30-0400 Respiratory rate 18 /min Dr. Price Herndon Work Phone: [facility] 03-23-2023 09:30-0400 SaO2% (BldA) [Mass fraction] 97 % Dr. Price Herndon Work Phone: [facility] 03-23-2023 09:30-0400 Systolic blood pressure 125 mm[Hg] Dr. Price Herndon Work Phone: [facility] 02-23-2023 09:13-0400 Body weight 117.[address] Price Herndon Work Phone: 5(682)090-495988 [place] [address] 02-23-2023 09:13-0400 Diastolic blood pressure 74 mm[Hg] Dr. Price Herndon Work Phone: 9(969)419-440488 [place] [address] 02-23-2023 09:13-0400 Heart rate 82 /min Dr. Price Herndon Work Phone: [facility] 02-23-2023 09:13-0400 Respiratory rate 18 /min Dr. Price Herndon Work Phone: [facility] 02-23-2023 09:13-0400 Systolic blood pressure 128 mm[Hg] Dr. Price Herndon Work Phone: [facility] 02-20-2023 19:54-0400 Diastolic blood pressure 57 mm[Hg] Dr. Price Herndon Work Phone: [facility] 02-20-2023 19:54-0400 Heart rate 72 /min Dr. Price Herndon Work Phone: [facility] 02-20-2023 19:54-0400 Respiratory rate 15 /min Dr. Price Herndon Work Phone: [facility] 02-20-2023 19:54-0400 SaO2% (BldA) [Mass fraction] 96 % Dr. Price Herndon Work Phone: [facility] 02-20-2023 19:54-0400 Systolic blood pressure 116 mm[Hg] Dr. Price Herndon Work Phone: [facility] 02-20-2023 15:20-0400 Body mass index (BMI) [Ratio] 36.8 kg/m2 Dr. Price Herndon Work Phone: [facility] 02-20-2023 15:20-0400 Body weight 116.[address] Price Herndon Work Phone: [facility] 02-20-2023 15:03-0400 Body height 177.[address] Price Herndon Work Phone: [facility] 02-20-2023 15:03-0400 Body temperature 97.4 [degF] Dr. Price Herndon Work Phone: [facility] 02-06-2023 09:25-0400 Body mass index (BMI) [Ratio] 38 kg/m2 Dr. Price Herndon Work Phone: [facility] 02-06-2023 09:25-0400 Body weight 120.[address] Price Herndon Work Phone: [facility] 09-05-2022 09:16-0500 Body height 177.[address] Price Herndon Work Phone: [facility] Work Phone: 09-05-2022 09:16-0500 Body mass index (BMI) [Ratio] 38.1 kg/m2 Dr. Price Herndon Work Phone: [facility] Work Phone: 09-05-2022 09:16-0500 Body weight 120.[address] Price Herndon Work Phone: [facility] Work Phone: 09-05-2022 09:16-0500 Diastolic blood pressure 65 mm[Hg] Dr. Price Herndon Work Phone: [facility] Work Phone: 09-05-2022 09:16-0500 Heart rate 89 /min Dr. Price Herndon Work Phone: [facility] Work Phone: 09-05-2022 09:16-0500 Respiratory rate 16 /min Dr. Price Herndon Work Phone: [facility] Work Phone: 09-05-2022 09:16-0500 Systolic blood pressure 144 mm[Hg] Dr. Price Herndon Work Phone: [facility] Work Phone: 01-19-2022 11:26-0400 Body height 177.[address] Price Herndon Work Phone: [facility] Work Phone: 01-19-2022 11:26-0400 Body weight [address] Price Herndon Work Phone: [facility] Work Phone: 01-19-2022 11:26-0400 Diastolic blood pressure 64 mm[Hg] Dr. Price Herndon Work Phone: [facility] Work Phone: 01-19-2022 11:26-0400 Heart rate 76 /min Dr. Price Herndon Work Phone: [facility] Work Phone: 01-19-2022 11:26-0400 Respiratory rate 18 /min Dr. Price Herndon Work Phone: [facility] Work Phone: 01-19-2022 11:26-0400 Systolic blood pressure 120 mm[Hg] Dr. Price Herndon Work Phone: [facility] Work Phone: 04-01-2021 15:24-0400 Body mass index (BMI) [Ratio] 37.6 kg/m2 Dr. Price Herndon Work Phone: [facility] Work Phone: Encounters Encounter Date Encounter Type Care Provider Facility Start: 07-31-2025 End: 07-31-2025 ambulatory PAULETTE JEROME Facility:[facility] Start: 07-24-2025 ambulatory Price Chi Yanick Facility:[facility] Start: 07-15-2025 End: 07-15-2025 ambulatory GENEVA O'MURALI Facility:[facility] Start: 07-08-2025 End: 07-08-2025 ambulatory GENEVA O'MURALI Facility:[facility] Start: 07-07-2025 End: 07-07-2025 ambulatory CORNELIUS JEDLICKA Facility:[facility] Start: 07-07-2025 End: 07-07-2025 ambulatory CORNELIUS JEDLICKA Facility:[facility] Start: 07-04-2025 ambulatory MARVIN ITIN Facility:[facility] Start: 06-23-2025 End: 06-23-2025 ambulatory JOHN UNRULY Facility:[facility] Start: 06-21-2025 End: 06-21-[address] Price Herndon MD Work Phone: [facility] Start: 06-21-2025 End: 06-21-[address] Saul Brush MD -[facility] Work Phone: Start: 06-12-2025 End: 06-12-[address] Price Herndon MD Work Phone: -[facility] Start: 06-12-2025 End: 06-12-[address] Price Herndon MD -[facility] Work Phone: Start: 06-12-2025 End: 06-12-2025 ambulatory Price Herndon Facility:[facility] Start: 05-22-2025 End: 05-22-[address] Price Herndon MD Work Phone: -[facility] Start: 05-22-2025 End: 05-22-[address] Saul Brush MD -[facility] Work Phone: Start: 05-09-2025 End: 05-09-[address] Sushil Stafford MD -[facility] Work Phone: Start: 05-09-2025 End: 05-09-[address] Price Herndon MD Work Phone: -[facility] Start: 05-01-2025 End: 05-01-[address] Sushil Stafford MD -[facility] Work Phone: Start: 05-01-2025 End: 05-01-[address] Price Herndon MD Work Phone: -[facility] Start: 04-24-2025 End: 04-24-[address] Price Herndon MD Work Phone: -Laboratory Specimen Start: 04-24-2025 End: 04-24-[address] Sushil Stafford MD -Laboratory Specimen Work Phone: Start: 04-23-2025 End: 04-23-[address] Sushil Stafford MD -[facility] Work Phone: Start: 04-23-2025 End: 04-24-[address] Price Herndon MD Work Phone: -[facility] Start: 04-22-2025 End: 04-22-[address] Price Herndon MD Work Phone: -[facility] Start: 04-22-2025 End: 04-22-[address] Saul Brush MD -[facility] Work Phone: Start: 04-07-2025 End: 04-07-[address] Sushil Stafford MD -[facility] Work Phone: Start: 04-07-2025 End: 04-07-[address] Price Herndon MD Work Phone: [facility] Start: 03-23-2025 End: 03-23-[address] Price Herndon MD Work Phone: -[facility] Start: 03-23-2025 End: 03-23-[address] Saul Brush MD -[facility] Work Phone: Start: 03-21-2025 End: 03-21-2025 Telephone encounter John Tolliver MD Work Phone: [facility] Comment on above: NPH Referral/Dr. Price Herndon Start: 03-20-2025 End: 03-20-2025 Patient encounter procedure Kenzie POOLE -[facility] Work Phone: Start: 03-20-2025 End: 03-20-[address] Price Herndon MD Work Phone: [facility] Work Phone: Start: 03-17-2025 End: 03-17-[address] Price Herndon MD Work Phone: [facility] Start: 03-17-2025 End: 03-17-[address] Price Herndon MD -[facility] Work Phone: Start: 03-17-2025 End: 03-17-2025 ambulatory Price Hern[place] Facility:[facility] Start: 02-21-2025 End: 02-21-[address] Price Herndon MD Work Phone: [facility] Work Phone: Start: 02-21-2025 End: 02-21-[address] Saul Brush MD -[facility] Work Phone: Start: 02-20-2025 End: 02-20-[address] Price Herndon MD Work Phone: [facility] Work Phone: Start: 02-20-2025 End: 02-20-[address] Price Herndon MD -Physical Therapy Work Phone: Start: 05-07-[address] Price reyes MD -Physical Therapy Work Phone: Start: 01-23-2025 End: 01-23-[address] Price Herndon MD Work Phone: [facility] Work Phone: Start: 01-23-2025 End: 01-23-[address] Price Herndon MD -Laboratory Work Phone: Start: 01-22-2025 End: 01-23-2025 ambulatory Price Chi Yanick Facility:[facility] Start: 01-22-2025 End: 01-22-[address] Saul Brush MD -[facility] Work Phone: Start: 12-23-2024 End: 12-23-2024 ambulatory Price Chi Yanick Facility:[facility] Start: 12-23-2024 End: 12-23-[address] Saul Brush MD -[facility] Work Phone: Start: 11-23-2024 End: 11-23-2024 ambulatory Price Chi Yanick Facility:[facility] Start: 11-23-2024 End: 11-23-[address] Saul Brush MD -[facility] Work Phone: Start: 10-24-2024 End: 10-24-2024 ambulatory Saul Brush Facility:[facility] Start: 10-24-2024 End: 10-24-[address] Saul Brush MD -[facility] Work Phone: Start: 09-24-2024 End: 09-24-2024 ambulatory Price Chi Yanick Facility:[facility] Start: 09-02-2024 End: 09-02-2024 ambulatory KAREN SOMERS DO Facility:[facility] Start: 09-02-2024 End: 09-02-2024 Patient encounter procedure KAREN SOMERS DO [facility] Start: 08-25-2024 End: 08-25-2024 ambulatory Price Chi Yanick [facility] Start: 08-08-2024 End: 08-08-2024 ambulatory Price Chi Yanick Facility:[facility] Start: 07-26-2024 End: 07-26-2024 ambulatory Petersburgpeg Brush [facility] Start: 01-29-2024 End: 01-29-[address] Price Herndon Work Phone: [facility] Work Phone: Start: 01-29-2024 End: 01-29-[address] Price Herndon Work Phone: [facility]-Radiology, [facility] Work Phone: Start: 01-28-2024 End: 01-28-[address] Price Herndon Work Phone: [facility] Work Phone: Start: 12-29-2023 End: 12-29-[address] Price Herndon Work Phone: [facility] Work Phone: Start: 11-29-2023 End: 11-29-[address] Price Herndon Work Phone: [facility] Work Phone: Start: 10-30-2023 End: 10-30-[address] Price Herndon Work Phone: [facility] Work Phone: Start: 06-16-2023 End: 06-16-[address] Price Herndon Work Phone: [facility] Work Phone: Start: 06-16-2023 End: 06-16-[address] Price Herndon Work Phone: [facility]-Physical Therapy Work Phone: Start: 06-12-[address] Price alas Work Phone: [facility]-Physical Therapy Work Phone: Start: 06-05-2023 End: 06-05-[address] Price Herndon Work Phone: [facility] Work Phone: Start: 06-05-2023 End: 06-05-[address] Price Herndon Work Phone: [facility], Phy Office 3rd Flr Start: 05-31-2023 End: 05-31-[address] Price Herndon Work Phone: [facility] Work Phone: Start: 05-22-[address] Price alas Work Phone: [facility]-Physical Therapy Work Phone: Start: 05-17-2023 End: 05-17-[address] Price Herndon Work Phone: [facility] Work Phone: Start: 05-17-2023 End: 05-17-[address] Price [place]: [facility] Work Phone: Start: 05-05-[address] Price alas Work Phone: [facility]-Physical Therapy Work Phone: Start: 05-02-[address] Price alas Work Phone: [facility]-Physical Therapy Work Phone: Start: 05-01-2023 Non-patient / Non-visit Dr. Brendan Herndon Work Phone: [facility] Start: 05-01-2023 End: 05-01-[address] Price Herndon Work Phone: [facility] Work Phone: Start: 05-01-2023 End: 05-01-[address] Price Herndon Work Phone: [facility] Work Phone: Start: 05-01-2023 End: 05-01-[address] Price Herndon Work Phone: [facility] Work Phone: Start: 04-27-2023 End: 04-27-[address] Price Herndon Work Phone: [facility] Work Phone: Start: 04-27-2023 End: 04-27-[address] Price Herndon Work Phone: [facility]-Laboratory, Phy Office 3rd Flr Start: 04-21-2023 End: 04-21-[address] Price Herndon Work Phone: [facility] Work Phone: Start: 04-21-2023 Non-patient / Non-visit Dr. Brendan Herndon Work Phone: [facility] Start: 04-20-2023 Non-patient / Non-visit [facility]. Brendan Herndon [facility] Start: 04-19-2023 Non-patient / Non-visit Dr. Brendan Herndon Work Phone: [facility] Start: 04-18-2023 Non-patient / Non-visit Dr. Brendan Herndon Work Phone: [facility] Start: 04-18-2023 End: 04-20-2023 Evaluation and management of inpatient Dr. Price Herndon Work Phone: [facility]-Medical Surgical 3 Work Phone: Start: 04-11-2023 End: 04-11-[address] Price Herndon Work Phone: [facility] Work Phone: Start: 04-11-2023 End: 04-11-[address] Price Herndon Work Phone: [facility]-Physical Therapy Work Phone: Start: 04-11-[address] Price alas Work Phone: [facility]-Physical Therapy Work Phone: Start: 04-07-2023 End: 04-07-[address] Price Herndon Work Phone: [facility] Work Phone: Start: 03-31-2023 End: 03-31-2023 Admission to same day surgery center Dr. Price Herndon Work Phone: [facility]-Freight [place]/Special Procedures Work Phone: Start: 03-31-2023 End: 03-31-[address] Price Herndon Work Phone: [facility] Work Phone: Start: 03-25-2023 End: 03-25-[address] Price Herndon Work Phone: [facility] Work Phone: Start: 03-25-2023 End: 03-25-[address] Price Herndon Work Phone: [facility]-Cat Scan, [facility] Work Phone: Start: 03-23-2023 End: 03-23-[address] Price Herndon Work Phone: [facility] Work Phone: Start: 03-23-2023 End: 03-23-[address] Price Herndon Work Phone: [facility]-Laboratory, Specimen Work Phone: Start: 03-23-[address] Price alas Work Phone: [facility] Work Phone: Start: 03-23-2023 End: 03-23-[address] Price Herndon Work Phone: [facility] Work Phone: Start: 03-20-2023 Non-patient / Non-visit Dr. Brendan Herndon Work Phone: [facility] Start: 03-20-2023 End: 03-20-[address] Price Herndon Work Phone: [facility] Work Phone: Start: 02-23-2023 End: 02-23-[address] Price Herndon Work Phone: [facility] Work Phone: Start: 02-20-2023 End: 02-20-2023 Emergency department patient visit Dr. Price Herndon Work Phone: [facility]-Emergency Department Start: 02-20-2023 End: 02-20-2023 Patient encounter procedure Haylee Watts PA-C Work Phone: [facility] Comment on above: Syncope, unspecified syncope type (Primary Dx) Start: 02-17-[address] Price alas Work Phone: [facility]-Physical Therapy Start: 02-06-2023 End: 02-06-[address] Prcie Herndon Work Phone: [facility] Start: 01-24-2023 End: 01-24-[address] Price Herndon Work Phone: [facility]-Laboratory, Phy Office 3rd Flr Start: 09-05-2022 End: 09-05-[address] Price Herndon Work Phone: [facility] Work Phone: Start: 09-05-2022 End: 09-05-[address] Price Herndon Work Phone: [facility] Start: 05-25-2022 End: 05-25-2022 ambulatory [facility] Work Phone: Start: 05-25-2022 End: 05-25-2022 Patient encounter procedure [facility]-Laboratory, y Office 3rd Flr Start: 01-19-2022 End: 01-19-[address] Price Herndon Work Phone: [facility] Start: 01-12-2022 End: 01-12-[address] Price Herndon Work Phone: [facility] Procedures Date Procedure Procedure Detail Performing Clinician Start: 03-17-2025 MRI of brain without contrast Dr. Price Herndon MD Work Phone: Start: 01-23-2025 Vitamin D, 25-hydrox y measurement Dr. Price Herndon MD Work Phone: Comment on above: Vitamin D StatusDefi ciency: <20 ng/mL (50nmol/L)Insufficiency: 20-30 ng/mL (50-75 nmol/L)Sufficiency: 30-100 ng/mL (75-250 nmol/L)Toxicity: >100 ng/mL (>250 nmol/L) Start: 01-29-2024 Plain chest X-ray Dr. Karla Herndon Work Phone: Start: 01-29-2024 X-ray of lumbosacral spine Dr. Price Herndon Work Phone: Start: 05-31-2023 Radiologic examinati on of knee Dr. Price Herndon Work Phone: Start: 04-21-2023 Radiologic examinati on of knee Dr. Price Herndon Work Phone: Start: 04-18-2023 Radiologic examinati on of knee Dr. Price Herndon Work Phone: Start: 04-18-2023 Total Knee Replaceme nt Robotic Arm Adore (Right) Dr. Price Herndon Work Phone: Start: 04-12-2023 Nasal Screen MRSA/MSSA Dr. Price Herndon Work Phone: Start: 03-25-2023 MRI of lower extremity Dr. Price Herndno Work Phone: Start: 03-20-2023 Cardiovascular stres s test using pharmacologic stress agent Dr. Price Herndon Work Phone: Start: 02-20-2023 Plain chest X-ray Dr. Karla Herndon Work Phone: Start: 02-20-2023 CT of head without contrast Dr. Price Herndon Work Phone: Start: 02-06-2023 Radiologic examinati on of knee Dr. Price Herndon Work Phone: Start: 01-24-2023 X-ray of lumbosacral spine Dr. Price Herndno Work Phone: Start: 01-24-2023 Radiologic examinati on of knee Dr. Price Herndon Work Phone: Cholecystectomy KAREN GIRON DO Decompression of med mikayla nerve KAREN SOMERS DO Implantable loop rec order in situ KAREN SOMERS DO Influenza Types A,B Direct FA (LIZABETH) Dr. Price Herndon Work Phone: Respiratory syncytia l virus antigen assay Dr. Price Herndon Work Phone: Total knee replacement MICAELA SOMERS DO Comment on above: right Plan of Treatment Date Care Activity Detail Author Start: 06-24-2026 Urine microalbumin profile DTaP,Tdap,Td Vaccine (2 - Td or Tdap) [facility] Start: 06-23-2025 End: 06-23-2025 Patient encounter procedure Neurological Jain Comment on above: consult for NPH per C. Alvo Neew consult for NPH per C. Alvo Start: 05-26-2025 Influenza vaccination Influenz a Vaccine (Season Ended) [facility] Start: 09-25-2024 Advance Directive Discussion Advance Directive Discussion [facility] Start: 05-26-2024 Covid-19 Vaccine ( season) Covid-19 Vaccine () [facility] Start: 04-20-2023 Patient discharge [facility] Start: 04-18-2023 Incentive spirometry [facility] Start: 04-18-2023 Following clinical pathway protocol [facility] Start: 04-18-2023 Application of intermittent pneumatic compression device [facility] Start: 04-18-2023 Provision of overbed trapeze [facility] Start: 04-18-2023 Admission procedure [facility] Start: 04-18-2023 Recommendation to continue with treatment [facility] Start: 04-18-2023 Ambulation therapy management [facility] Start: 04-18-20[address] [facility] Start: 04-18-2023 Application of elast ic bandage [facility] Start: 04-18-2023 Assessment of risk o f venous thromboembolism [facility] Start: 04-18-2023 Catheterization of vein [facility] Start: 04-18-2023 Exercises [facility] Start: 04-18-2023 Following clinical pathway protocol [facility] Start: 04-18-2023 Introduction of urin zeeshan catheter [facility] Start: 04-18-2023 Measuring intake and output [facility] Start: 04-18-2023 Neurovascular assessment [facility] Start: 04-18-2023 Patient education [facility] Start: 04-18-2023 Procedure discontinued [facility] Start: 04-18-2023 Provision of activit y privileges [facility] Start: 04-18-2023 Referral to occupati onal therapist [facility] Start: 04-18-2023 Referral to service [facility] Start: 04-18-2023 Vital signs measurements [facility] Start: 04-18-2023 Wound care [facility] Start: 04-18-2023 [facility] Start: 03-31-2023 Patient discharge [facility] Start: 09-25-2022 ADVANCE DIRECTIVE DISCUSSION ADVANCE DIRECTIVE DISCUSSION [facility] Start: 09-25-2022 DEPRESSION ASSESSMENT DEPRESSION ASS ESSMENT [facility] Start: 02-03-2021 COVID-19 VACCINE (3 - Booster for Moderna series) COVID-19 VACCINE (3 - Booster for Moderna series) [facility] Start: 12-04-2018 RSV Vaccine (1 - 1-d ose 75+ series) RSV Vaccine (1 - 1-dose 75+ series) [facility] Start: 06-25-2014 Pneumococcal Vaccine : 50+ (2 of 2 - PCV) Pneumococcal Vaccine: 50+ (2 of 2 - PCV) [facility] Start: 12-04-2008 PNEUMOCOCCAL: 65+ (1 - PCV) PNEUMOCOCCAL: 65+ (1 - PCV) [facility] Start: 04-01-2006 DIABETES SCREEN DIABETES SCREEN [facility] Start: 04-01-2006 Diabetes Screening Diabetes Screenin g [facility] Start: 12-04-1993 SHINGRIX VACCINE (1 of 2) SORIANO GRIX VACCINE (1 of 2) [facility] Start: 12-04-1962 Urine microalbumin profile DTAP,TDAP,TD (1 - Tdap) [facility] Start: 12-04-1961 Anxiety Screening Anxiety Screening [facility] Start: 12-04-1961 Depression Screening Depression Scre ening [facility] Patient Education ED Fainting, U ncertain Cause [facility] Work Phone: Patient referral [facility] Work Phone: [facility]placement [facility] heart device, pulse generator [facility] Immunizations Immunization Date Immunization Notes Care Provider Fa tata 04-25-2022 influenza virus vaccine, unspecified formulation John Tolliver MD Work Phone: [facility] 01-12-2022 Covid (Moderna) Dr. Price Herndon Work Phone: [facility] 07-07-2021 Covid (Moderna) Dr. Price Herndon Work Phone: [facility] 05-12-2021 influenza, injectabl e, quadrivalent, preservative free Dr. Price Herndon Work Phone: [facility] 05-12-2021 influenza, seasonal, injectable Dr. Price Herndon Work Phone: [facility] 12-09-2020 Covid (Moderna) Dr. Price Herndon Work Phone: [facility] 11-11-2020 Covid (Moderna) Dr. Price Herndon Work Phone: [facility] 05-05-2020 influenza, injectabl e, quadrivalent, preservative free Dr. Price Herndon Work Phone: [facility] 05-05-2020 influenza, seasonal, injectable Dr. Price Herndon Work Phone: [facility] 05-17-2017 influenza, injectabl e, quadrivalent, preservative free Dr. Price Herndon Work Phone: [facility] 05-17-2017 influenza, seasonal, injectable Dr. Price Herndon Work Phone: [facility] 06-25-[address] Price Herndon Work Phone: [facility] Work Phone: 06-25-2013 pneumococcal vaccine , unspecified formulation Dr. Price Herndon Work Phone: [facility] 04-01-2013 pneumococcal conjuga te vaccine, [address] Price Herndon Work Phone: [facility] 09-27-2006 hepatitis A vaccine, pediatric/adolescent dosage, [address] Price Herndon Work Phone: [facility] Payers Date Payer Category Payer Self-pay [id number] 2016 [facility] [employer] DICALEXANDRA SUPPLEMENT [id number] 2016 Unknown ANTHEM ANTHEM ME DICARE SUPPLEMENT [id number] 2016-Present [phone] [address] [place] [address] Indemnity [id number] 2014 Unknown [id number] 2008 Medicare [id number] 2008 Medicare [id number] 1945 Unknown [id number] Unknown VA AUTH REQUIR ED SEE NOTE [id number] Unknown [id number] .462 Unknown [id number] .462 Unknown [id number] [id number] .462 Unknown [id number] 2.840.1.255035.3.579.2 .462 Unknown [id number] 2.840.1.807432.3.579.2 .462 Unknown [id number] .[id number] .462 Unknown [id number] 2.16.840.1.905288.3.579.2 .462 Unknown [id number] 2.16.840.1.526258.3.579.2 .462 Unknown [id number] 2.16.840.1.839511.3.579.2 .462 Unknown [id number] 2.16.840.1.551866.3.579.2 .462 Unknown [id number] 2.16840.1.853465.3.579.2 .462 Unknown [id number] 2.16.840.1.971126.3.579.2 .462 Unknown [id number] 2.840.1.218104.3.579.2 .462 Unknown [id number] 2.840.1.543231.3.579.2 .462 Unknown [id number] 2.840.1.502169.3.579.2 .462 Unknown [id number] 2.840.1.750945.3.579.2 .462 Unknown [id number] 2.840.1.064492.3.579.2 .462 Unknown [id number] 2.16840.1.568268.3.579.2 .462 Unknown [id number] 2.840.1.537341.3.579.2 .462 Unknown [id number] 2.840.1.197478.3.579.2 .462 Unknown [id number] 2.16840.1.574133.3.579.2 .462 Unknown [id number] 2.16.840.1.616280.3.579.2 .462 Unknown [id number] 2.16.840.1.157151.3.579.2 .462 Unknown [id number] 2.16840.1.060232.3.579.2 .462 Unknown [id number] 2.16.840.1.019714.3.579.2 .462 Unknown [id number] 2.16.840.1.958841.3.579.2 .462 Social History Date Type Detail Facility Start: 01-19-2022 End: 07-12-2023 Tobacco smoking status NHIS Unknown if ever smoked [facility] Start: 06-14-2014 Rare [facility] Start: 06-14-2014 None [facility] Start: 06-14-2014 Spouse/ Signif icant Other [facility] Start: 06-14-2014 Non-smoker [facility] Start: 1945 Sex Assigned At Male 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 groomer of alcohol (finding) [facility] Start: 1945 Sex Assigned At Not on file [facility] Start: 08-20-2020 End: 09-01-2020 History of Social function [facility] Start: 08-20-2020 End: 09-01-2020 Tobacco use panel [facility] Work Phone: National Score (1-100), lower number is lower risk Not on file [facility] Medical Equipment Procedure Code Equipment Code Equipment Origin al Text Equipment Identifier Dates Implantable card iac monitor [id number] [id number] FDA Start: 03-31-2023 ([id number]) Metal-backed pat amber prosthesis ()[id number] [id number] )[id number] FDA Start: 04-18-2023 ([id number]) Coated knee femu r prosthesis ()[id number] [id number] )[id number] FDA Start: 04-18-2023 ([id number]) Coated knee tibi a prosthesis ()[id number] [id number])[id number] FDA Start: 04-18-2023 ([id number]) Tibial insert [id number] [id number] 1)[id number] FDA Start: 04-18-2023 Goals Date Patient Goal Desired Activity /State Functional Status Date Assessment Result Facility 04-20-2023 Functional status Ambulates [facility] Work Phone: Mental Status Date Assessment Result Facility 04-19-2023 Cognitive function Voice/Name [facility] Work Phone: 02-20-2023 Cognitive function Level Of Cons ciousness Awake;Alert;Appropriate;Follow s Commands [facility] Work Phone: Clinical Notes 02-20-2023 to 07-31-2025 Telephone Encounter - Doron Olivarez RN - 03/21/2025 10:28 AM EDTTelephone Encounter - Doron Olivarez RN - 03/21/2025 10:28 AM EDT Note Date & Type Note Facility 07-31-2025 Note HNO ID: [id number] Author: PAULETTE JEROME MD Service: ? 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 Adolfo reports chronic lower back pain localized to the right side. The pain reportedly began after his knee surgery. He has undergone physical therapy and multiple injections for his back pain, with the most recent injection in January. The injections provided only temporary relief, lasting for a few hours at most. He reports a feeling of weakness in his legs and experiences severe back pain when walking longer distances, which forces him to stop. The pain dissipates when he sits down. He does not report any numbness in his hands or legs. He is able to get around at home without assistive devices but uses a cane when going out. He has not had any falls in the past 6 months, with the last fall occurring in November. He has a history of a blood clot in his thigh, which was discovered at the end of May. He is currently on anticoagulation therapy for the blood clot. He does not have a history of diabetes or smoking. PRECIPITATING EVENT: None DURATION OF SYMPTOMS: Greater Than 1 Year PAIN EVALUATION 07/31/2025 1555 Pain Level: 2 Pain Location: Back-Lower right side Description: Burning Duration Amount of Time: 3 Duration Units: Years Frequency: Continuous Intervention/Comfort measure: Medication Comments: gabapentin, AMBULATORY STATUS: Independent Community Distances PREVIOUS SPINAL SURGERY: None Major Risk Factors Obesity Moderate Risk BMI: 39.41 kg/m2 High: BMI > 40 Moderate: BMI 30-40 Normal: BMI < 30 Diabetes normal High: A1C > 8 Moderate: A1C 7-8 Normal: A1C < 7 Hx of DVT / PE normal High: dx of DVT / PE Normal: no dx of DVT / PE Smoking normal Last Status: Never High: Current smoker Normal: Non smoker Narcotics Use normal High:NarxCare >=300 Moderate: 100-299 Normal: 0-99 Depression normal High: PHQ-9 >14 Moderate: PHQ-9 5-14 Normal: PHQ-9 < 5 Data from F Epic on prior therapies: Last PT session: Date - 07/15/2025 Last Epidural Steroid Injection: No epidural injection on file for last 365 days Last Spine Surgery: No history of prior spine surgery in search of available [facility] records PAST MEDICAL HISTORY Diagnosis Date Essential hypertension, benign HLD (hyperlipidemia) HTN (hypertension) PAST SURGICAL HISTORY Procedure Laterality Date LAPS SURG CHOLECYSTECTOMY W/CHOLANGIOGRAPHY 05/25/07 NEUROPLASTY AND/TRANSPOS MEDIAN NRV CARPAL TUNNE Carpal tunnel decomp BILATERAL Current Outpatient Medications on File Prior to Visit Medication Sig doxazosin (CARDURA) 4 mg tablet Take 4 mg by mouth daily at bedtime. finasteride (PROSCAR) 5 mg tablet Take 5 mg by mouth once daily. gabapentin (NEURONTIN) 100 mg capsule Take 1 capsule by mouth three times a day for 90 days. ELIQUIS 5 mg tab(s) coenzyme Q10 (CO Q-10) 100 mg cap capsule Take 100 mg by mouth twice daily. potassium chloride (K-JENNIFER, KLOR-CON) 20 mEq packet Take 20 mEq by mouth twice daily. furosemide (LASIX) 40 mg tablet Take 40 mg by mouth twice daily. diltiazem CD (CARTIA XT) 120 mg 24 hr capsule Take 120 mg by mouth once daily. pravastatin (PRAVACHOL) 40 mg tablet Take 40 mg by mouth once daily. EPINEPHrine (EPIPEN) 0.3 mg/0.3 mL auto-injector Inject 0.3 mL intramuscularly as needed (for allergic reaction.Seek emergent medical care immediately after use.Disp:one 2-pack w/staff trainer). MULTIVITAMIN TAB Take one(1) tablet daily. isosorbide mononitrate(IMDUR 30 MG 24 HR TAB) Take one(1) tablet daily. penicillin V potassium (VEETIDS) 250 mg/5 mL suspension Bring to office for oral graded dose challenge (Patient not taking: Reported on 07/31/2025) COMPOUNDED PRESCRIPTION If patient presents with allergic or anaphylactic reaction, draw a serum tryptase. Fax results to Dr. Hurd at [phone] albuterol HFA (PROVENTIL HFA, VENTOLIN HFA) 90 mcg/actuation inhaler Inhale 2 Puffs as instructed every 4 hours as needed (for cough, wheezing, chest tightness or shortness of breath. Use with spacer. ). (Patient not taking: Reported on 06/23/2025) No current facility-administered medications on file prior to visit. Objective PHYSICAL EXAM Ht 174 cm (5' 8.5") Wt 119.3 kg (263 lb) BMI 39.41 kg/m? GENERAL APPEARANCE: Well nourished, well developed, and no apparent distress. NEURO PSYCH: Patient oriented to person, place, and time. Mood pleasant. Benign affect. MUSCULOSKELETAL VISUAL INSPECTION CERVICAL: WNL THORACIC: Hyperkyphosis LUMBAR: Flatback MOTOR: 5/5 in all muscle groups. SENSORY: Normal sensory exam GAIT: An (more content not included)... [facility] 07-31-2025 Note HNO ID: [id number] Author: JUSTIN GERMAN RT(R) Service: Radiology Author Type: Technologist Type: Progress Notes Filed: 07/31/2025 15:46 Note Text: Radiology Service Progress Note PATIENT NAME: Adolfo Rivera DATE OF SERVICE: July 31, 2025 TIME: 3:45 PM PATIENT IDENTITY VERIFICATION COMPLETED USING TWO (2) IDENTIFIERS: Name and Date of confirmed by patient verbally and Name and Date of confirmed by identification band. FALL SCREENING: Has the patient had 2 falls in the last year or 1 fall with injury or currently using an Ambulatory Assistive Device (Walker, Cane, Wheelchair, Crutches, etc.)? Yes, Patient High Risk for Falls What interventions were put in place to prevent falls during this visit? Increased Observations by Caregivers PATIENT GENDER DATA: Assigned male at PATIENT RELEVANT IMPLANT DATA REVIEWED: Not Applicable PATIENT PRESENTS WITH AN IMPLANTABLE OR ATTACHED WASHER REPAIRMAN: No RADIOLOGY DEPARTMENT: General X-ray: Exam(s) Completed: Spine X-Ray(s): Lumbar FLEX/EXT and Scoliosis Series best images possible PERIPHERAL IV DATA: Not applicable SIGNED BY: RT Erasto(R) July 31, 2025 3:45 PM [facility] 07-15-2025 Note HNO ID: [id number] Author: GENEVA MOTLEY, MICHELE Service: ? Author Type: Physical Therapist Type: Progress Notes Filed: 07/15/2025 09:20 Note Text: Episode Visit Count: 2 Therapist That Will Accept/Oversee The Plan Of Care: Geneva Motley Start of Care Date: 07/08/25 Onset Date: 07/08/23 Plan of Care Certification Date: 07/08/25 Next Certification Due Date: 08/19/25 REHABILITATION AND SPORTS THERAPY PHYSICAL THERAPY DISCONTINUANCE OF CARE PLAN OF CARE UPDATE: Assessment: Adolfo Rivera is discontinued from Physical Therapy services due to Patient/Client declining further intervention.. Patient was seen for 2 visits from Start of Care Date: 07/08/25 to 07/15/2025 and treatment included: Therapeutic exercise and Self-residential management. Goals for Episode of Care: established 07/08/25 Goals updated on 07/15/2025. Patient will report no falls. -- NOT MET Improve score on Timed Up and Go Test to 10 seconds to reflect decreased fall risk.-- NOT MET Improve score on 30 Second Chair Stand to 10 repetitions to reflect decreased fall risk. -- NOT MET Fingal in home exercise program including cardiovascular exercise. Patient will demonstrate independent and proper use of assisstive device to allow for improved walking quality and safety therefore reducing the risk of falls. -- NOT MET Perform walking x 10-15 min with SC and mod indep without increased symptoms. -- NOT MET Patient Goals: reduce LBP and improve tolerance with prolonged standing/walking -- NOT MET SUBJECTIVE: Pt tried HEP but reports it doesn't helps. Taking jamal medication doesn't help. Pt. informs PT that they will be doing surgery on his back but they have not set up a day. Pt. agrees to discharge PT until post-op due to very limited activity tolerance with low intensity movements.. Patient Goals: reduce LBP and improve tolerance with prolonged standing/walking Pain: Pain Pain Level: 3 Pain Location: Back Description: Aching Post Treatment Pain Post Treatment Pain Level: No Change Post Treatment Pain Location: Back PROMIS Scales 07/08/2025 Higher is Better Self-Eff Symptom - T Score 43 (Average) Self-Eff Symptom - Percentile 24 Mobility - T Score 37 (moderate dysfunction) Mobility - Percentile 10 Proxy-reported T-Score and Percentile Interpretation T-scores: mean of general population = 50. 5 points is clinically meaningfully difference Percentiles provide an indication of how the patient's score ranks in relation to the general population. Higher percentile rankings indicate better function/quality of life. 50th percentile is the average of the general population and indicates half of respondents had a worse score. OBJECTIVE MEASURES WITH LEVEL OF FUNCTION: TREATMENT: Therapeutic Exercise: 1: seated TA activation 4x5, 5 sec hold 2: seated lumbar flexion 2x10, 5 sec hold 3: sit <> stand 2x3 Skilled Intervention: Patient was educated in proper exercise technique and purpose for exercises. Skilled judgment was used in selection of appropriate interventions. Provided written instruction for home exercise program to facilitate proper performance and compliance. Correct performance of therapeutic exercises was facilitated with verbal, visual, and tactile cuing. Educated patient on rationale for performing exercises in regards to decreasing fatigue , increase ease of ADL, and ROM and function . Self-Jail Management: 1: discussed continue TA activation in preparation for surgery to optimize core stability and strength 2: discussed that core stability and strength will need to be restored following surgery regardless of symptom outcomes to prevent return of symptoms and optimize outcomes 3: discussed that current HEP does not cause increased symptoms and therefore not harmful to do despite it not providing substantial relief. 4: discussed post-op considerations such as keeping rugs picked up, the possibility of needing to use a walker and having a first floor set up. Skilled Intervention: Skilled judgment in the selection of proper modification for activity of daily living/home management based on clinical presentation, deficits, and needs. Reviewed patient specific diagnosis in relation to activities of daily living/home management. Activity progression based on professional judgement. Provided written instruction for home program to facilitate proper performance and compliance. Correct performance of home program was facilitated with verbal, visual, and tactile cueing. Billing Therapeutic Exercise Treatment Minutes: 10 Self-Care/Home Management Treatment Minutes: 14 Skilled Treatment Time Minutes (timed and untimed codes): 24 Total Session Time (minutes): 24 Session Start Time : 854 Session Stop Time : 918 Geneva Motley, PT [facility] 07-14-2025 Note HNO ID: [id number] Author: MIMI MARTIN PA-C Service: ? Author Type: Physician Buhr Dresser Type: Progress Notes Filed: 07/14/2025 13:57 Note Text: Per Triage: Adolfo Rivera is a 79 year old male that requests evaluation of spine. Per review, they have symptoms of right sided lower back pain. Difficulty walking BMI: 39. Non-smoker Request: First available Referring provider: John Tolliver Patient out of state: No 2nd opinion: No Prior spine surgery: No CMT: PT Studies (Reports unless indicated) Lumbar spine 07/04/2025: Alignment: Grade 1 anterolisthesis of L4 on L5. Alignment is otherwise preserved. Bone marrow signal/fracture: No evidence of pathologic marrow infiltration. No evidence of prior fracture. Conus: The conus is within normal limits of signal intensity and morphology. Paraspinal soft tissues: Paraspinal soft tissues are within normal limits. Lower thoracic spine: Visualized lower thoracic canal and foramina are patent. L1-L2: Mild disc bulge with mild spinal canal and mild bilateral foraminal stenosis. L2-L3: Canal and foramina are patent L3-L4: Disc bulge with facet and ligamentous hypertrophy resulting in moderate spinal canal stenosis and mild to moderate bilateral foraminal stenosis. L4-L5: Grade 1 degenerative anterolisthesis with disc bulge/uncovering as well as facet and ligamentous hypertrophy resulting in severe spinal canal stenosis and moderate bilateral foraminal stenosis. L5-S1: Facet hypertrophy and disc bulge contributing to severe bilateral foraminal stenosis. No significant canal narrowing. Sacrum and iliac wings: The visualized sacrum and iliac wings are within normal limits. Disposition: Based on triage, recommend patient be scheduled with surgeon 1st eric. Spine Xrays prior to appt: yes Please make sure patient imaging is available for review Mimi Martin PA-C [facility] 07-11-2025 Note HNO ID: [id number] Author: ?, ?, ? Service: ? Author Type: ? Type: Progress Notes Filed: 07/14/2025 13:57 Note Text: Patient name: Adolfo Rivera Are you being referred by a [facility] Spine Health Provider or Pain Management Provider at [facility]? No If answer is "YES" please schedule directly with surgeon, triage does not need to be completed. Is this a self-referral No If not, who is the Referring Provider John Tolliver Is this a 2nd opinion from another spine surgeon? No Were you offered surgery? No MRI/CT/myelogram within 12 months? Yes If "NO", please refer to medical spine or PCP to complete above imaging, triage does not need to be completed If "YES,? please ask for the name/address of the facility where the MRI/CT/myelogram was completed: [facility] MRI/CT/myelogram viewable in Epic: Yes If not, please provide [phone] to fax in imaging reports for review. Also, please inform patient to hand carry imaging disc to appointment. XR (spine) within 12 months: No If "YES,? please ask for the name/address of the facility where the XR was completed: Dr. Jaquez's patients: Have you had previous EMG/Nerve Conduction Study, Ultrasound, or MRI for these same symptoms? If "YES,? please ask for the name/address of the facility where they were completed: Requested provider (First and Last name): Any Are you interested in a virtual visit if offered? 1. Where are you having symptoms related to this visit? Back pain Yes LBP, right side Leg pain No Arm pain No Neck pain No 2. Are you having any of the following symptoms: Difficulty walking Yes takes breaks after long periods of standing or walking Numbness No Weakness No Trouble using your hands? No 3. What is your height? 5'10" What is your weight? 263 4. Are you a current smoker? No 5. Have you had any injections or physical therapy in the last 12 months? Yes If "YES" then please ask for the name/address of the facility where the injections and/or physical therapy was completed [facility] Have you tried any other kinds of non-surgical treatments in the last 12 months? (For example: NSAIDS, muscle relaxants, analgesics, oral steroids, Chiropractor, Acupuncture): No 6. Are you currently taking daily prescribed narcotic medications for your current symptoms (For example Oxycodone, Hydrocodone, Tramadol, Morphine, Other)? No 7. Have you had previous spinal surgery for this same symptoms? No If "YES? please ask for the name of facility/address of where the surgery was completed: Additional Comments [phone] [facility] 07-08-2025 Note HNO ID: [id number] Author: GENEVA MOTLEY, PT Service: ? Author Type: Physical Therapist Type: Progress Notes Filed: 07/08/2025 12:27 Note Text: Episode Visit Count: 1 Therapist That Will Accept/Oversee The Plan Of Care: Geneva Motley Start of Care Date: 07/08/25 Onset Date: 07/08/23 Plan of Care Certification Date: 07/08/25 Next Certification Due Date: 08/19/25 Patient Identified by Name and Date of : Yes REHABILITATION AND SPORTS THERAPY PHYSICAL THERAPY EVALUATION PLAN OF CARE: Assessment: Adolfo Rivera presents with diagnosis of action tremor, abnormality of gait, LBP, cerebral ventriculomegaly, memory loss, uregency of micturition that interferes with standing . The patient presents with impairments in ADL's, balance, flexibility, gait, independence in exercise, joint mobility, overall function, patient reported outcome measures, posture, range of motion, strength, symptom management, and tissue tenderness. PROMIS? (Patient-Reported Outcomes Measurement Information System) scores were reviewed and identified as a rehabilitation concern. Prognosis for therapy is Fair due to: clinical presentation . The patient will benefit from skilled therapy services to meet the goals established for this plan of care as noted below. Classification Pain Mechanism Classification: Nociceptive Low Back Pain Classification: Symptom Modulation Goals for Episode of Care: established 07/08/25 Patient will report no falls. Improve score on Timed Up and Go Test to 10 seconds to reflect decreased fall risk. Improve score on 30 Second Chair Stand to 10 repetitions to reflect decreased fall risk. Fingal in home exercise program including cardiovascular exercise. Patient will demonstrate independent and proper use of assisstive device to allow for improved walking quality and safety therefore reducing the risk of falls. Perform walking x 10-15 min with SC and mod indep without increased symptoms. Patient Goals: reduce LBP and improve tolerance with prolonged standing/walking Time Frame for Goals and Treatment : 08/19/25 Planned Interventions, Frequency, and Duration: Current Frequency: 1x/week Duration: 6 weeks Total Number of Visits Planned: 6 Planned Treatment Interventions: Self-residential management (08409), Gait Training (77238), Therapeutic activities (26293), Manual therapy (07857), Neuromuscular re-education (90238), Therapeutic exercise (13253) PLAN FOR NEXT VISIT: assess pt. ability to self manage symptoms with lumbar flexion movement, balance training as tolerated upright, seated core stabilization. gait training and correct use of SC Patient demonstrates good understanding of plan of care and treatment. The above goals and plan of care were discussed and agreed upon by patient/family. SUBJECTIVE: for LBP and gait abnormality. Pt. began using a SC early this spring due to having a couple falls. Pt. denies falls since using SC. Pt. can tolerate about 5 minutes of standing before needing to sit down. Pt. denies radiating symptoms in the legs with standing or walking. Patient Goals: reduce LBP and improve tolerance with prolonged standing/walking Functional Limitations: standing Prior Level of Function: Independent without limitations Relevant History Past Relevant Medical Conditions: (recent R DVT) Intake Information: Prescription present Previous Treatment: None Falls Interview: Uses an assistive device Red Flags Vertebral Fracture Red Flags: Age >70 Abdominal Aortic Aneurysm Red Flags: Age >60 Abdominal Aortic Aneurysm Clinical Reasoning: Proceed with caution Cancer Red Flags: Age >50 or <20, History of Cancer Cancer Clinical Reasoning: Proceed with caution Infection Clinical Reasoning: No identified risk factors. Cauda Equina Syndrome Clinical Reasoning: No identified risk factors. Red Flags - Cervical Cancer Red Flags: Age >50 or <20, History of Cancer Cancer Clinical Reasoning: Proceed with caution Infection Clinical Reasoning: No identified risk factors. Spine History Symptoms Location at Onset: Back Pain is Worse Always: Standing Pain is Better Always: Bending Pain: Pain Pain Level: 2 Pain Location: Back Description: Aching Post Treatment Pain Post Treatment Pain Level: No Change Post Treatment Pain Location: Back PROMIS Scales 07/08/2025 Higher is Better Self-Eff Symptom - T Score 43 (Average) Self-Eff Symptom - Percentile 24 Mobility - T Score 37 (moderate dysfunction) Mobility - Percentile 10 Proxy-reported T-Score and Percentile Interpretation T-scores: mean of general population = 50. 5 points is clinically meaningfully difference Percentiles provide an indication of how the patient's score ranks in relation to the general population. Higher percentile rankings indicate better function/quality of life. 50th percentile is the average of the general population and indicates half of respondents (more content not included)... [facility] 07-07-2025 Note HNO ID: [id number] Author: DEVENDRA ANTHONY MD Service: ? Author Type: Resident Type: Progress Notes Filed: 07/08/2025 13:46 Note Text: Physical Medicine and Rehabilitation New patient July 07, 2025 SUBJECTIVE HISTORY OF PRESENT ILLNESS: Adolfo Rivera is a 79 year old man evaluated for impaired gait and low back pain The pain has been present for 2 years. Duration of Pain: Chronic (> 12 weeks) His pain level is currently 0 on a scale of 0-10 while sitting here. But reports it can increase to much higher levels when walking The pain is located in the lower back on the right and described as stabbing. Pain Radiation: down the right thigh posteriorly to the level of the knee Aggravating Factors: standing and walking Alleviating Factors: sitting Pain Ratio: Pain in the back is greater than in the leg Adolfo is an 79-year-old male with multifactorial gait disturbance, ventriculomegaly, and a recent right thigh DVT, presenting with chronic low back pain. He is accompanied by his , who provides additional history. Adolfo reports progressive low back pain for the past 2 years, worsening over time. The pain is localized to the right lower back and described as stabbing. It is triggered by standing or walking and relieved by sitting. He can stand for less than 5 minutes and walk only short distances before pain becomes severe. Pain intensity is 0/10 at rest and can reach 10/10 with prolonged standing or walking. He has recently developed pain radiating down the back of his right leg, not extending past the knee. He has tried home health care worker and physical therapy in the past without relief. He has received approximately 7 lumbar epidural steroid injections in different locations, most recently 2 months ago, with only brief, minimal relief from the first injection. He has not started current physical therapy but plans to begin next week. He was evaluated by neurology on 06/23/2025 for progressive gait disturbance, tremor, urinary urgency, and memory loss. Exam at that time showed shuffling gait, right hand tremor, and bradykinesia. Differential included early Parkinson's disease versus normal pressure hydrocephalus. Brain MRI showed ventriculomegaly. He has fallen 4 times in the past year, with 2 falls requiring emergency room visits. She notes he has improved his gait with reminders to lift his feet and has not fallen when using a cane. He was diagnosed with a right thigh DVT last month and is [facility] taking [facility] He had right knee replacement surgery almost 3 years ago, with persistent swelling since the procedure. No N/T No weakness No B/B incontinence No increased pain with cough/sneeze No saddle anesthesia No constitutional sxs No personal CA hx. Mood and sleep are good Prior Therapy: Physical Therapy, Tylenol, Injections FUNCTIONAL STATUS: Walk indoors, such as around the house (1.75 METs) Take care of self, that is eating, dressing, bathing, using the toilet (2.75 METs) YELLOW AND BLUE FLAGS No-Neg Attitude; Back Pain is Disabling No-Avoiding Activity (for Fear of Pain) No-Depression or Anxiety Disorders No-Social Problems No-Substance Use Disorder No-Job Dissatisfaction No-Financial Disincentives Patient Entered Questionnaires PROMIS Score Percentiles 06/23/2025 PROMIS Global Health Scale Physical Health Percentile 41 Mental Health Percentile 63 Percentiles provide an indication of how the patient's score ranks in relation to the general population. Higher percentile rankings indicate better function/quality of life. 50th percentile is the average of the general population and indicates half of respondents had a worse score. Depression Screenin06/23/2025 PHQ-9 Score 0 0 Multiple values from one day are sorted in reverse-chronological order 06/23/2025 PHQ-9 Self-harm Question Question 9 Not at all Proxy-reported PHQ-9 Self-Harm (Item 9) response options: 0 Not at all 1 Several days 2 More than half the days 3 Nearly every day PHQ-9 Levels: 0-4 No - mild depression 5-9 Mild depression 10-14 Moderate depression 15-19 Moderately severe depression 20-27 Severe depression PAST MEDICAL HISTORY Diagnosis Date Essential hypertension, benign HLD (hyperlipidemia) HTN (hypertension) PAST SURGICAL HISTORY Procedure Laterality Date LAPS SURG CHOLECYSTECTOMY W/CHOLANGIOGRAPHY 05/25/07 NEUROPLASTY AND/TRANSPOS MEDIAN NRV CARPAL TUNNE Carpal tunnel decomp BILATERAL SOCIAL HISTORY[1] FAMILY HISTORY Problem Relation Age of Onset None Unknown ALLERGIES Allergen Reactions Cephalosporins Anaphylaxis Diovan Hct [Valsart* Iodine Rash Possible, patient had reaction once, unknown if iodine caused the reaction. Norflex [Orphenadri* Anaphylaxis On 05/17/17, patient developed respiratory failure within 30 minutes of treatment with ceftriaxone, Toradol and orphenadrine. Topr (more content not included)... [facility] 07-07-2025 Note HNO ID: [id number] Author: CORNELIUS WOODS MD Service: ? Author Type: Physician Type: Progress Notes Filed: 07/08/2025 13:46 Note Text: [facility] STAFF PHYSICIAN NOTE OF PERSONAL INVOLVEMENT IN CARE I have reviewed the consult note obtained and documented by the fellow and I personally participated in the granado components. I have discussed the case and management of the patient's care. The following comments revise or confirm relevant granado components of their note. IMPRESSION 79 yo man with cLBP Previously to neuro 06/23/25 for worsening gait , ataxia, shuffling gait and bowel incontinence Ongoing neuro work up ? Multifactorial PD, NPH, wants to make sure not spine involvement and with the cLBP x 2 years Slowly progressive, now severe back pain Urine incontinence and bowel incontinence feels it coming but cannot hold at times, sounds more like urgency and in context of difficulty with walking Location- Right low back, occ radiation to posterior thigh but not below knee DVT RLE thigh on eliquis dx 1 month ago No N/T Worse with walking, standing, cannot gricelda more than 5 min 0/10 with sitting but can be up to 10/10 with walking Immediately relief with sitting Only tylenol ,not really help MRI L spine 07/04/25 on personal review L4L5 with severe canal stenosis, less at L3L4 Ligamentum flavum hypertrophy about 5.22mm on my measurement at L4L5 L5S1 with NFS Prior MICHAEL? Done in [place], others in [place], no records, he is not sure type or level but did not help- but had 7 total Only very min help with first one. Exam javier + facet loading on right TTP L5S1 facet region MMT 5/5 SILT in UE/LEs DTRs 2+ at knees but only trace at ankles To start PT soon- already had orders- in past but not recent No falls since having cane Consider aquatics first (while Dr. Tolliver completing work up) and to be more gentle on back, if not improve, could consider for eval for MILD with L4L5 ligamentum flavum hypertrophy at about 5.2 mm and failing that, eval for possible lami Also TTP right L5S1 facet and + facetloading- also targetable In interim, consider neurontin for canal stenosis with neurogenic claudication- ordered 100mg tid, ordered for cbc, cmp for baseline and for guide on neurontin dosing adjustments Allergy list had old listing for : Other-unknown with following reaction: Heart medication, given by Dr. Maldonado caused rash. 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 SIGNATURE: Cornelius Woods MD DATE of SERVICE: July 07, 2025 I spent a total of 45 minutes on the date of the service which included preparing to see the patient, [id number] patient care, completing clinical documentation, obtaining and/or reviewing separately obtained history, performing a medically appropriate examination, counseling and educating the patient/family/caregiver, ordering medications, tests, or procedures, communicating with other HCPs (not separately reported), independently interpreting results (not separately reported), and communicating results to the patient/family/caregiver. Consultation requested by Dr. Marvin Bliss for an opinion regarding back pain. My final recommendations will be communicated back to the requesting physician by way of shared medical record or letter via US mail [facility] 07-04-2025 Note HNO ID: [id number] Author: ALIREZA PINA RT(R) Service: ? Author Type: Technologist Type: Progress Notes Filed: 07/04/2025 13:23 Note Text: Radiology Service Progress Note PATIENT NAME: Adolfo Rivera DATE OF SERVICE: July 04, 2025 TIME: 1:22 PM PATIENT IDENTITY VERIFICATION COMPLETED USING TWO (2) IDENTIFIERS: Name and Date of confirmed by patient verbally. FALL SCREENING: Has the patient had 2 falls in the last year or 1 fall with injury or currently using an Ambulatory Assistive Device (Walker, Cane, Wheelchair, Crutches, etc.)? Yes, Patient High Risk for Falls What interventions were put in place to prevent falls during this visit? Instructed Patient to Call for Help if Needed, Offered Assistance with Transfers/Clothing, Instructed Patient to Remain Seated (Not on Exam Table) Until Exam, and Increased Observations by Caregivers PATIENT GENDER DATA: Assigned male at PATIENT RELEVANT IMPLANT DATA REVIEWED: Yes PATIENT PRESENTS WITH AN IMPLANTABLE OR ATTACHED WASHER REPAIRMAN: No RADIOLOGY DEPARTMENT: MR; Exam(s) Completed: Head: Routine Brain Spine: Lumbar spine. Anesthesia: No. Aromatherapy Administered: No PERIPHERAL IV DATA: Not applicable SIGNED BY: RT Arlene(R) July 04, 2025 1:22 PM [facility] 06-23-2025 Note HNO ID: [id number] Author: JOHN TOLLIVER MD Service: ? 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 Adolfo complains of progressive decline in his gait since 2022. He states the main issues with his gait is severe back pain. He is scheduled to meet with spine team next week. Adolfo does also experience imbalance and shuffling. He is using a cane at all times and admits multiple falls. Adolfo experiences daily urinary incontinence and his family has noticed very mild cognitive decline. Has DVT on eliquis - started last week Past Surgical History: PAST SURGICAL HISTORY Procedure Laterality Date LAP CHOLECYSTECT/CHOLANGIOGRAPHY 05/25/07 REVISE MEDIAN N/CARPAL TUNNEL SURG Carpal tunnel decomp BILATERAL Past Medical History: PAST MEDICAL HISTORY Diagnosis Date Essential hypertension, benign Current Medications: Current Outpatient Medications Medication Sig ELIQUIS 5 mg tab(s) penicillin V potassium (VEETIDS) 250 mg/5 mL suspension Bring to office for oral graded dose challenge (Patient not taking: Reported on 06/23/2025) coenzyme Q10 (CO Q-10) 100 mg cap capsule Take 100 mg by mouth twice daily. potassium chloride (K-JENNIFER, KLOR-CON) 20 mEq packet Take 20 mEq by mouth twice daily. (Patient not taking: Reported on 06/23/2025) furosemide (LASIX) 40 mg tablet Take 40 mg by mouth twice daily. diltiazem CD (CARTIA XT) 120 mg 24 hr capsule Take 120 mg by mouth once daily. (Patient not taking: Reported on 06/23/2025) pravastatin (PRAVACHOL) 40 mg tablet Take 40 mg by mouth once daily. COMPOUNDED PRESCRIPTION If patient presents with allergic or anaphylactic reaction, draw a serum tryptase. Fax results to Dr. Hurd at [phone] albuterol HFA (PROVENTIL HFA, VENTOLIN HFA) 90 mcg/actuation inhaler Inhale 2 Puffs as instructed every 4 hours as needed (for cough, wheezing, chest tightness or shortness of breath. Use with spacer. ). (Patient not taking: Reported on 06/23/2025) EPINEPHrine (EPIPEN) 0.3 mg/0.3 mL auto-injector Inject 0.3 mL intramuscularly as needed (for allergic reaction.Seek emergent medical care immediately after use.Disp:one 2-pack w/staff trainer). MULTIVITAMIN TAB Take one(1) tablet daily. isosorbide mononitrate(IMDUR 30 MG 24 HR TAB) Take one(1) tablet daily. (Patient not taking: Reported on 06/23/2025) No current facility-administered medications for this visit. Allergies: Cephalosporins, Diovan Hct [Valsartan-Hydrochlorothiazide] , Iodine, Norflex [Orphenadrine], Toprol Xl [Metoprolol Succinate], Toradol [Ketorolac Tromethamine], and Unknown [Other] Social History: SOCIAL HISTORY[1] Family History: FAMILY HISTORY Problem Relation Age of Onset None Unknown REVIEW OF SYSTEMS: Constitutional: No recent fever or weight loss Skin: Denies itching, rashes, skin cancers or conditions Eyes: Denies complaints of blurred vision and diplopia, Does not use glasses or contact lenses ENMT: Denies dysphagia, tinnitis, vertigo and hearing loss, Does not use dentures Endocrine: Denies history of Type l or Type ll diabetes mellitus, Denies history of Thyroid disease CV: Denies history of chest pain, prior NH's, palpitations, heart failure, murmurs,, circulatory problems, leg swelling, admits HTN and HLD Respiratory: Denies history of paroxymal nocturnal dyspnea, recent cough, orthopnea, shortness of breath, COPD, emphysema, asthma, pneumonia, tuberculosis Gastrointestinal: Denies history of nausea, vomiting, diarrhea, constipation, ulcers, heartburn, abdominal pain Genitourinary: Denies hematuria, dysuria, kidney disease, sexual dysfunction, admits incontinence Musculoskeletal: admits back pain Neurological: Denies history of syncope, memory changes, or disorientation Denies complaint of headache Denies complaint of diplopia or decreased visual acuity Denies complaint of arm / leg numbness Denies problem with limb coordination Denies history of seizures and strokes Denies loss of consciousness or other neurologic disease Admits tremor Psychiatric: Denies history of hallucinations, depression, anxiety, substance abuse FOCUSED NEUROLOGIC EXAM Higher integrative function: Oriented to person, place and time, speech clear and fluent, fundi of knowledge good, accurate naming of objects CN II: Visual acuity normal, Visual woody full to confrontation, No APD noted on exam CN III, IV, : Pupils equal, round and reactive to light, full extraoccular movements, without nystagmus CN V: Facial sensation intact bilaterally to fine touch and pinprick, masseter 5/5 CN VII: Facial muscles symmetric and strong, No noted facial droop CN VIII: Hears finger rub well bilaterally CN IX: not tested CN X: Palate elevates symmetrically CN XI: Full strength shoulder shrug bilaterally CN XII (more content not included)... [facility] 06-23-2025 Note HNO ID: [id number] Author: MARVIN BLISS MD Service: ? Author Type: Physician Type: Progress Notes Filed: 06/23/2025 11:38 Note Text: [facility] - NEW PATIENT EVALUATION Recording using ambient BeMyGuest software for draft documentation of the visit was discussed with the patient/authorized public utilities sales representative; all questions welcomed and answered. Patient/authorized public utilities sales representative agreed to proceed Primary Care Provider: Price Viera (Historical) Yanick (Inactive) [facility] [id number] Dear Price Viera (Historical) Yanick (Inactive): I had the pleasure of evaluating Mr. Rivera in our clinic today. As you know he is a 79 year old right-handed male who presents for evaluation of fait problems since 2022. He is seen with and daughter. Subjective HISTORY OF PRESENT ILLNESS: Adolfo is an 79-year-old male with hypertension, hyperlipidemia, and a loop recorder in place, presenting for evaluation of worsening gait disturbance, tremor, and bowel incontinence. He is accompanied by his , who provides additional history. Adolfo?s reports progressive symptoms over the past 2 years, beginning with shuffling gait and a right hand tremor. She first noticed tremor in his lip, which she initially attributed to medication side effects. She brought him to the doctor when she observed shuffling gait and tremor, which she felt were not normal. The tremor is most noticeable when holding objects such as a cup or newspaper. She also reports that he is "losing control of his bowels," though this has only occurred a couple of times. She notes that he sometimes tries to hide this from her by doing his own laundry. Over the past 6 months, he has had 4 falls, 2 of which required emergency room visits. He has been using a cane since the spring. His reports that he has had more tremors and breathing problems since the appointment was made. She also notes that he has lost his sense of where he is at times and has difficulty remembering names. He reports difficulty standing up from a chair and getting in and out of a vehicle. He also reports that it takes him longer to get dressed. His notes that his handwriting is worse than before. She also reports that his voice is softer, though she attributes this to hearing loss. He reports that his sense of smell is not as good as it used to be, though there has been no abrupt change recently. He denies problems with sleep, including talking or screaming in his sleep. He also denies hallucinations or visual illusions. He reports that his memory is "alright." He manages the household finances and denies any problems with this. He also reports that his driving is "good," though his notes that he has been weaving from the center line to the white line, which he never did before. He has not had any accidents. He reports that his mood is good and denies feeling down, depressed, or sad. He also denies problems with bladder control, though he does report more urgency. He has had lower back pain for the past 2 years, which occurs every day when standing. He has had MRI imaging of his back, which showed spinal stenosis. He has had injections for the pain, but they have not provided relief. He has a loop recorder in place, which was implanted 3 years ago. He has had 1 episode recorded, but no specific findings were reported. He takes medication for hypertension and hyperlipidemia. He denies any heart or lung problems. He has no biological children. His brother has myasthenia gravis, which he attributes to service in [place]. He denies any other family history of neurological problems. 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 - Brain MRI: Findings suggestive of hydrocephalus (extra CSF). - Lumbar spine MRI: Spinal stenosis. - Insertable court monitor (loop recorder): No specific arrhythmia documented to date. Addendum: Results reviewed directly with the patient; External documentation reviewed. Movement Disorders Medications Schedule - as of the start of the visit: Medications Questionnaires In addition, the following areas that may be affected by abnormal involuntary movements were evaluated: Daily activities Difficulties with eatin (none) Difficulties in dressin (none) Difficulties with hygiene activities: 0 (none) Difficulties with handwritin (none) Difficulties with doing hobbies and other activities: 0 (none) Difficulties turning in bed: 0 (none) Difficulties getting out of bed, car or chair: 0 (none) Tremors/Gait/Balance Shaking or tremors: 0 (none) Walking and balance problems: 0 (none) Number of falls in the Last Month: 0 Gait freezin (none) Autonomic/Pain Lightheadeness on standin (none) Urinary problems: 0 (none) Constipation problems: 0 (none) Pain and other sensations: Yes (moderate) Speech/Swallowing Speech problems: 0 (none) Droolin (none) Chewing and sw (more content not included)... [facility] 03-21-2025 Telephone encounter Note Triaged, message sent to lead front desk agent requesting patient be contact to schedule movement/nsgy consult. Asked that they request patient bring all brain imaging to upcoming appointments. Doron Olivarez RN [facility] Work Phone: 03-21-2025 Miscellaneous Notes Triaged, message sent to lead front desk agent requesting patient be contact to schedule movement/nsgy consult. Asked that they request patient bring all brain imaging to upcoming appointments. Doron Olivarez RN Referral received from Dr. Jolly Herndon/Adult Geriatrics [facility] for NPH (copy in scanned docs). documented in this encounter [facility] 03-21-2025 Telephone encounter Note Referral received from Dr. Jolly Herndon/Adult [facility] for NPH (copy in scanned docs). [facility] 03-20-2025 Evaluation note Diagnosis Onset Date Resolution Edema acute March 20 8:08am Implantable loop recorder present acute March 20, 2025 8:08am Essential hypertension chronic 2024 8:08am Nonsustained ventricular tachycardia chronic February 8:08am [facility] Work Phone: 1(779) 186-847606-26-2025 Evaluation note* Diagnosis Onset Date Resolution Status Admit Date Edema acute March 20 8:08am Implantable loop recorder present acute March 20, 2025 8:08am Essential hypertension chronic 2024 8:08am Nonsustained ventricular tachycardia chronic March 20, 2025 8:08am Neoplasm of uncertain behavi or of skin acute April 07, 2025 3:39pm [facility] Work Phone: 1(601) 371-383206-26-2025 Evaluation note* Diagnosis Onset Date Resolution Status Admit Date Edema acute March 20 8:08am Implantable loop recorder present acute March 20, 2025 8:08am Essential hypertension chronic Ju ne 2024 8:08am Nonsustained ventricular tachycardia chronic March 20, 2025 8:08am Neoplasm of uncertain behavi or of skin acute April 07, 2025 3:39pm Neoplasm of uncertain behavi or of skin acute April 23, 2025 2:42pm [facility] Work Phone: 1(907) 843-998206-26-2025 Evaluation note* Diagnosis Onset Date Resolution Status Admit Date Edema acute March 20 8:08am Implantable loop recorder present acute March 20, 2025 8:08am Essential hypertension chronic Ju ne 2024 8:08am Nonsustained ventricular tachycardia chronic March 20, 2025 8:08am Neoplasm of uncertain behavi or of skin acute April 07, 2025 3:39pm Neoplasm of uncertain behavi or of skin acute April 23, 2025 2:42pm Neoplasm of uncertain behavi or of skin acute May 01, 2025 9:55am [facility] Work Phone: 1(875) 519-561506-26-2025 Evaluation note* Diagnosis Onset Date Resolution Status Admit Date Edema acute March 20 8:08am Implantable loop recorder present acute March 20, 2025 8:08am Essential hypertension chronic Ju ne 2024 8:08am Nonsustained ventricular tachycardia chronic March 20, 2025 8:08am Neoplasm of uncertain behavi or of skin acute April 07, 2025 3:39pm Neoplasm of uncertain behavi or of skin acute April 23, 2025 2:42pm Neoplasm of uncertain behavi or of skin acute May 01, 2025 9:55am Neoplasm of uncertain behavi or of skin acute May 09 10:27am [employer] [facility] Work Phone: 1(209) 557-123306-26-2025 Progress [facility] [address] [place], [place] [id number] OFFICE VISIT Date of Service: 03/20/25 MR#: [id number] Acct: [id number] Name: ADOLFO RIVERA MELBA Rep #: [id number] : 1945 Provider: ZULEMA Moore Age/Sex: 79/M [place] [facility] Status: Signed HPI HPI History of Present Illness Details: Adolfo Rivera is a 79-year-old white male with a history of CAD-known angiographically significant, cardiac ectopy with PACs/PVCs and nonsustained VT,hyperlipidemia, and hypertension. He did undergo a stress test (2022) which wasnegative. Echocardiogram (2022) demonstrated an EF of 55%. He did have a syncopal event in 2022 and does have a loop recorder placed. He was recently diagnosed with hydrocephulus. He will is being referred to a neurosurgeon in [place]. notes that he has edema and does not know if hetalked with anyone about this. He does havebalance problems. He will be having a pain injection. Intake Vital Signs 02/21/24 09:20 03/20/25 08:26 Height 5 ft 10 in 5 ft 10 in Weight: 266 lb BMI 38.1 BP 112/70 Blood Pressure Location Lt brachial Position Sitting Respiration 18 Pulse 47 L Pulse Source Monitor Intake Visit Reasons: 1 Y FU Flight Reservations Manager Required: No Accompanied by: Is patient in pain?: No Allergies Beta-Blockers (Beta-Adrenergic Bloc Allergy (Severe, Verified 03/20/25 08:34) Hives ceftriaxone (From Rocephin) Allergy (Severe, Verified 03/20/25 08:34) Anaphylaxis ciprofloxacin (From Cipro) Allergy (Severe, Verified 03/20/25 08:34) Anaphylaxis hydralazine Allergy (Severe, Verified 03/20/25 08:34) Swelling- eyes, feet Iodinated Contrast Media (CONTRASTS) Allergy (Verified 03/20/25 08:34) Hives iodine Allergy (Verified 03/20/25 08:34) Hives NAHUM Inhibitors Adverse Reaction (Severe, Verified 03/20/25 08:34) Swelling amlodipine Adverse Reaction (Severe, Verified 03/20/25 08:34) Edema,legs clonidine Adverse Reaction (Severe, Verified 03/20/25 08:34) RAsh valsartan (From Diovan) Adverse Reaction (Severe, Verified 03/20/25 08:34) RAsh Medications ?Medication ?Instructions ?Recorded ?Confirmed ?Type coenzyme Q10 100 mg capsule 100 mg PO DAILY SUPPLEMENT 05/17/17 03/20/25 History glucosamine HCl 1,500 mg tablet 1,500 mg PO QDAY SUPPL EMENT 01/18/18 03/20/25 History isosorbide mononitrate 60 mg 60 mg PO DAILY HEART #90 tabs 01/18/18 03/20/25 Rx tablet,extended release 24 hr multivitamin 1 tab PO DAILY SUPPLEMENT 03/20/25 History acetaminophen 500 mg tablet 1,000 mg (2 x 500 mg) PO Q 6H PRN 04/19/23 03/20/25 Rx #100 tabs potassium chloride 20 mEq 20 meq PO DAILY #90 TABLETS 07/16/24 03/20/25 Rx tablet,extended release(part/cryst) doxazosin 4 mg tablet 4 mg PO QHS BP #90 tabs 03/02/1603/20/25 Rx pravastatin 40 mg tablet 40 mg PO QHS CHOLESTEROL #90 tabs 11/27/24 03/20/25 Rx clindamycin HCl 300 mg capsule 600 mg (2 x 300 mg) PO ONCE #2 caps 03/20/25 03/20/25 Rx diltiazem HCl 120 mg 120 mg PO QDAY 03/20/2502/24 History capsule,extended release 24 hr finasteride 5 mg tablet 5 mg PO QDAY 03/20/25 History furosemide 40 mg tablet 40 mg PO QDAY 03/20/2503/20 History nitroglycerin 0.4 mg sublingual 0.4 mg sublingual Q5M PRN cp #25 03/20/25 03/20/25 Rx tablet tabs Ejection fraction %: 60 Have you fallen in the past year?: Yes (3 in november tripped (dx: hydrocephalus)) [facility] Medical History Implantable loop recorder present Wears hearing aid Wears partial dentures Arthritis Back pain Gastric reflux Non-smoker Shortness of breath on exertion History of pain when walking History of edema History of echocardiogram History of stress test Hypertension Cardiology follow-up encounter Syncope Pure hypercholesterolemia Essential hypertension Hiatal hernia Asthma Atherosclerotic heart disease of [place] coronary artery without angina pectoris Long-term use of high-risk medication Acute respiratory failure with hypoxia Nonsustained ventricular tachycardia PVC (premature ventricular contraction) PAC (premature atrial contraction) Obesity (BMI 30-39.9) Surgical History History of loop recorder Hx of colonoscopy History of cataract extraction History of cholecystectomy History of carpal tunnel surgery Family History Mother CAD (coronary artery disease) Myocardial infarction Father CAD (coronary artery disease) Myocardial infarction Brother CAD (coronary artery disease) Hx of CABG Brother CAD (coronary artery disease) Social History Smoking Status: Never smoker alcohol intake: current details: occasional substance use type: does not use caffeine: Yes Type: coffee Number of servings: 3 ROS Const Const: Negative for fatigue or weakness Eyes Eyes: Negative for change in vision ENT ENT: Positive for balance problems; Negative for dizziness Cardio Chest Pain: No Palpitations: No Edema: Bilateral (worse on right) Resp Respiratory: Negative for SOB with activity, SOB at rest or SOB orthopneaundefinedSOB lying down GI GI: Negative nausea or heartburn Musc Musc: Positive for balance problems Neuro Neuro: Negative for dizziness, lightheadedness, near syncope, syncope or weakness Endo Endo: Negative for fatigue Cardiology Exam Const Appearance: cooperative, healthy appearing, comfortable, no acute distress, welldeveloped and well groomed Nutritional Appearance: obese Orientation: alert, awake and oriented x3 Head Head: normal to inspection, normocephalic and atraumatic Ears: hearing grossly normal bilaterally Nose: external nose normal Face and Sinus: face symmetric Eyes Eyelids: eyelids normal Conjunctivae: conjunctivae normal Pupils: PERRL EOM: EOM intact bilaterally Neck Neck: normal visual inspection and full ROM Carotids: normal carotid upstroke Chest Chest inspection: normal inspection of the chest, symmetric chest movement and normal respiratory effort Auscultation: Bilateral: Clear to Auscultation Cardio Palpation: normal PMI Rate: regular rate Rhythm: regular rhythm and ectopic beats Heart sounds: S1 normal and S2 normal GI GI: normal to inspection, soft, bowel sounds present and obese Neuro General: patient alert, patient awake, patient oriented x3 and moves all extremities Skin Skin: no rashes or lesions noted Extremities Pulses: Normal: Right Radial Pulse and Left Radial Pulse Lower Extremity Edema: +1: Bilateral Psych Psychological: normal affect Supplemental Info Supplemental Information Echocardiogram 02/2023: Normal LV size. Left ventricular systolic function is normal. The estimated ejection fraction is 55 %. Stage 1 diastolic dysfunction. The study was technically difficult. The study was technically limited. Contrastinjection was performed. Pharmacologic myocardial perfusion stress test 02/2023: 77-year-old man with a history of premature ventricular complexes Resting EKG demonstrates sinus rhythm with a rate of 82 bpm. Resting blood pressure is 142/74 mmHg.0.4 mg of regadenoson was infused per usual protocol followed by rapid intravenous saline flush injection. Continuous EKG monitoringwas performed. The maximum heart rate was 96 bpm which was 68% of max impacted heart rate the maximum workload was 1 metabolic equivalent. At rest there were no ST or T wave changes noted to suggest ischemia and at peak infusion nonspecific ST changes were noted which did not meet the criteria for ischemia. No clinical angina is noted. The final blood pressure was 148/70 mmHg. Myocardial perfusion protocol. 15 mCi of technetium 99m sestamibi was injected at rest. 0.4 mg of regadenoson was infused per usual protocol. At peak infusion 44.7 mCi of technetium 99m sestamibi was injected stress images were obtained stress and rest images were reconstructed and compared in the short axis vertical long and horizontal long axis. Gated images were also obtained. Perfusion SPECT analysis: Review of the stress images demonstrate normal uptake of tracer noted in all areas of the myocardium. The resting images similar demonstrated normal uptake of tracer noted in all areas of the myocardium. No areas of reversibility are noted to suggest ischemia and no previous infarct is noted. Gated SPECT analysis: The gated ejection fraction is 62%. Conclusion: Normal pharmacologic myocardial perfusion stress test. Preserved ejection fraction. Diagnostic cardiac catheterization: 01/13/2009: FINAL IMPRESSION 1. Relatively normal left ventricular end diastolic pressure pre angiographic dye load with mild elevation post angiographic dye load. 2. Left ventricle: A) Mild hypokinesis of the mid diaphragmatic segments. B) Estimated LVEF of 55%. 3. Left main: A) Distal 10% to 25% stenosis extending into the LAD and LCX system. LAD: A) Ostial 25% appearing stenosis. B) Proximal 25% diffuse irregular appearing stenosis. C) First diagonal branch with proximal 25% appearing stenosis. 0) LAD left?to?left collateral flow to the left PDA system. LCX; A) Ostial 25% to 50% appearing stenosis. B> 10% to 25% appearing stenosis. C) Left PDA with proximal 75% stenosis followed by subsequent occlusion with the remainder of the left PDA system filling from left?to?left collateral flow from. the LAD. RCA: A) Small nondominant right. B) Proximal 75% appearing stenosis. C) Proximal to mid 65% irregular appearing stenosis. Holter monitor: 01/11/2011 NORMAL SINUS RHYTHM MINIMUM HR 52 8PM AT 4:33:02 AM, NO ACTIVITY OR SYMPTOM RECORDED. AVERAGE HR 71 8PM MAXIMUM HR 110 8PM AT 11:27:58 AM, NO ACTIVITY OR SYMPTOM RECORDED. RARE ISOLATED PREMATURE ATRIAL COMPLEXES. 4 ATRIAL COUPLETS. NO RUNS NOTED. FREQUENT ISOLATED PREMATURE VENTRICULAR COMPLEXES. OCCASIONAL VENTRICULAR BIGEMINY, TRIGEMINY, AND QUADRIGEMINY. 6793 VENTRICULAR COUPLETS VS ABERRANCY. 1432 VENTRICULAR TRIPLETS VS ABERRANCY 28 RUNS TOTALING 125 BEATS. THE LONGEST RUN WAS 8 BEATS OF PROBABLE ABERRANCY RATE 119 BPM AT 7:07:08 PM. THE FASTEST RUN WAS 4 BEATS OF PROBABLE ABERRANCY RATE 124 BPM AT 7:48:39 PM. NO SYMPTOMS DOCUMENTED IN 24 HOUR HOLTER DIARY. Labs: No Data to Display Diagnostics: No Data to Display Pulmonary: No Data to Display Past Visits: Cardiology Visit 03/20/25 Assessment and Plan Assessment and Plan (1) Essential hypertension: Status: Chronic Plan: His blood pressure is under good control at this particular time would not recommend that we make any changes (2) Nonsustained ventricular tachycardia: Status: Chronic Plan: He has previously had some ventricular dysrhythmias. This is being monitored with loop recorder interrogations. He has not had any symptoms of syncope. (3) Implantable loop recorder present: Status: Acute Plan: Patient will continue with regular scheduled loop recorder interrogations. (4) Edema: Status: Acute Plan: Encouraged use of compression stocking and leg elevated. 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) Coding Level of Care Code Off vis,est,level 4 Diagnoses Essential hypertension I10 Nonsustained ventricular tachycardia I47.2 Implantable loop recorder present Z95.818 Edema R60.9 Coding Level of Care Code Off vis,est,level 4 Diagnoses Essential hypertension I10 Nonsustained ventricular tachycardia I47.2 Implantable loop recorder present Z95.818 Edema R60.9 Clinical Quality Measures Falls Risk Screening/Assistive Devices Have you fallen in the past year?: Yes (3 in november tripped (dx: hydrocephalus)) Cardiac Ejection fraction %: 60 03/20/25 0915 Mary POOLE> Date _ Kenzie POOLE Cosigner Signature: Date (if applicable) CC: Dr. Price Herndon MD ~ [facility]06-26-2025 Progress note Author Kenzie Iraheta [facility] Note Date/Time March 20, 2025 9:15 am [facility] [address] [place] [address]. [address] [place] [address] OFFICE VISIT Date of Service: 03/20/25 MR#: [id number] Acct: [id number] Name: ADOLFO RIVERA Rep #: [id number] : 1945 Provider: ZULEMA Moore Age/Sex: 79/M Location: [facility] [place] Status: Signed HPI HPI History of Present Illness Details: Adolfo Rivera is a 79-year-old white male with a history of CAD-known angiographically significant, cardiac ectopy with PACs/PVCs and nonsustained VT,hyperlipidemia, and hypertension. He did undergo a stress test (2022) which wasnegative. Echocardiogram (2022) demonstrated an EF of 55%. He did have a syncopal event in 2022 and does have a loop recorder placed. He was recently diagnosed with hydrocephulus. He will is being referred to a neurosurgeon in [place]. notes that he has edema and does not know if hetalked with anyone about this. He does have balance problems. He will be having a pain injection. Intake Vital Signs 02/21/24 09:20 03/20/25 08:26 Height 5 ft 10 in 5 ft 10 in Weight: 266 lb BMI 38.1 BP 112/70 Blood Pressure Location Lt brachial Position Sitting Respiration 18 Pulse 47 L Pulse Source Monitor Intake Visit Reasons: 1 Y FU Flight Reservations Manager Required: No Accompanied by: Is patient in pain?: No Allergies Beta-Blockers (Beta-Adrenergic Bloc Allergy (Severe, Verified 03/20/25 08:34) Hives ceftriaxone (From Rocephin) Allergy (Severe, Verified 03/20/25 08:34) Anaphylaxis ciprofloxacin (From Cipro) Allergy (Severe, Verified 03/20/25 08:34) Anaphylaxis hydralazine Allergy (Severe, Verified 03/20/25 08:34) Swelling- eyes, feet Iodinated Contrast Media (CONTRASTS) Allergy (Verified 03/20/25 08:34) Hives iodine Allergy (Verified 03/20/25 08:34) Hives NAHUM Inhibitors Adverse Reaction (Severe, Verified 03/20/25 08:34) Swelling amlodipine Adverse Reaction (Severe, Verified 03/20/25 08:34) Edema,legs clonidine Adverse Reaction (Severe, Verified 03/20/25 08:34) RAsh valsartan (From Diovan) Adverse Reaction (Severe, Verified 03/20/25 08:34) RAsh Medications ?Medication ?Instructions ?Recorded ?Confirmed ?Type coenzyme Q10 100 mg capsule 100 mg PO DAILY SUPPLEMENT 05/17/17 03/20/25 History glucosamine HCl 1,500 mg tablet 1,500 mg PO QDAY SUPPL EMENT 01/18/18 03/20/25 History isosorbide mononitrate 60 mg 60 mg PO DAILY HEART #90 tabs 01/18/18 03/20/25 Rx tablet,extended release 24 hr multivitamin 1 tab PO DAILY SUPPLEMENT 03/20/25 History acetaminophen 500 mg tablet 1,000 mg (2 x 500 mg) PO Q 6H PRN 04/19/23 03/20/25 Rx #100 tabs potassium chloride 20 mEq 20 meq PO DAILY #90 TABLETS 07/16/24 03/20/25 Rx tablet,extended release(part/cryst) doxazosin 4 mg tablet 4 mg PO QHS BP #90 tabs 03/0 02/1603/20/25 Rx pravastatin 40 mg tablet 40 mg PO QHS CHOLESTEROL #90 tabs 11/27/24 03/20/25 Rx clindamycin HCl 300 mg capsule 600 mg (2 x 300 mg) PO ONCE #2 caps 03/20/25 03/20/25 Rx diltiazem HCl 120 mg 120 mg PO QDAY 03/20/25 06/03/19 History capsule,extended release 24 hr finasteride 5 mg tablet 5 mg PO QDAY 03/20/25 History furosemide 40 mg tablet 40 mg PO QDAY 03/20/2503/20 History nitroglycerin 0.4 mg sublingual 0.4 mg sublingual Q5M PRN cp #25 03/20/25 03/20/25 Rx tablet tabs Ejection fraction %: 60 Have you fallen in the past year?: Yes (3 in november tripped (dx: hydrocephalus)) [facility] Medical History Implantable loop recorder present Wears hearing aid Wears partial dentures Arthritis Back pain Gastric reflux Non-smoker Shortness of breath on exertion History of pain when walking History of edema History of echocardiogram History of stress test Hypertension Cardiology follow-up encounter Syncope Pure hypercholesterolemia Essential hypertension Hiatal hernia Asthma Atherosclerotic heart disease of [place] coronary artery without angina pectoris Long-term use of high-risk medication Acute respiratory failure with hypoxia Nonsustained ventricular tachycardia PVC (premature ventricular contraction) PAC (premature atrial contraction) Obesity (BMI 30-39.9) Surgical History History of loop recorder Hx of colonoscopy History of cataract extraction History of cholecystectomy History of carpal tunnel surgery Family History Mother CAD (coronary artery disease) Myocardial infarction Father CAD (coronary artery disease) Myocardial infarction Brother CAD (coronary artery disease) Hx of CABG Brother CAD (coronary artery disease) Social History Smoking Status: Never smoker alcohol intake: current details: occasional substance use type: does not use caffeine: Yes Type: coffee Number of servings: 3 ROS Const Const: Negative for fatigue or weakness Eyes Eyes: Negative for change in vision ENT ENT: Positive for balance problems; Negative for dizziness Cardio Chest Pain: No Palpitations: No Edema: Bilateral (worse on right) Resp Respiratory: Negative for SOB with activity, SOB at rest or SOB orthopneaundefinedSOB lying down GI GI: Negative nausea or heartburn Musc Musc: Positive for balance problems Neuro Neuro: Negative for dizziness, lightheadedness, near syncope, syncope or weakness Endo Endo: Negative for fatigue Cardiology Exam Const Appearance: cooperative, healthy appearing, comfortable, no acute distress, welldeveloped and well groomed Nutritional Appearance: obese Orientation: alert, awake and oriented x3 Head Head: normal to inspection, normocephalic and atraumatic Ears: hearing grossly normal bilaterally Nose: external nose normal Face and Sinus: face symmetric Eyes Eyelids: eyelids normal Conjunctivae: conjunctivae normal Pupils: PERRL EOM: EOM intact bilaterally Neck Neck: normal visual inspection and full ROM Carotids: normal carotid upstroke Chest Chest inspection: normal inspection of the chest, symmetric chest movement and normal respiratory effort Auscultation: Bilateral: Clear to Auscultation Cardio Palpation: normal PMI Rate: regular rate Rhythm: regular rhythm and ectopic beats Heart sounds: S1 normal and S2 normal GI GI: normal to inspection, soft, bowel sounds present and obese Neuro General: patient alert, patient awake, patient oriented x3 and moves all extremities Skin Skin: no rashes or lesions noted Extremities Pulses: Normal: Right Radial Pulse and Left Radial Pulse Lower Extremity Edema: +1: Bilateral Psych Psychological: normal affect Supplemental Info Supplemental Information Echocardiogram 02/2023: Normal LV size. Left ventricular systolic function is normal. The estimated ejection fraction is 55 %. Stage 1 diastolic dysfunction. The study was technically difficult. The study was technically limited. Contrastinjection was performed. Pharmacologic myocardial perfusion stress test 02/2023: 77-year-old man with a history of premature ventricular complexes Resting EKG demonstrates sinus rhythm with a rate of 82 bpm. Resting blood pressure is 142/74 mmHg. 0.4 mg of regadenoson was infused per usual protocol followed by rapid intravenous saline flush injection. Continuous EKG monitoringwas performed. The maximum heart rate was 96 bpm which was 68% of max impacted heart rate the maximum workload was 1 metabolic equivalent. At rest there were no ST or T wave changes noted to suggest ischemia and at peak infusion nonspecific ST changes were noted which did not meet the criteria for ischemia. No clinical angina is noted. The final blood pressure was 148/70 mmHg. Myocardial perfusion protocol. 15 mCi of technetium 99m sestamibi was injected at rest. 0.4 mg of regadenoson was infused per usual protocol. At peak infusion 44.7 mCi of technetium 99m sestamibi was injected stress images were obtained stress and rest images were reconstructed and compared in the short axis vertical long and horizontal long axis. Gated images were also obtained. Perfusion SPECT analysis: Review of the stress images demonstrate normal uptake of tracer noted in all areas of the myocardium. The resting images similar demonstrated normal uptake of tracer noted in all areas of the myocardium. No areas of reversibility are noted to suggest ischemia and no previous infarct is noted. Gated SPECT analysis: The gated ejection fraction is 62%. Conclusion: Normal pharmacologic myocardial perfusion stress test. Preserved ejection fraction. Diagnostic cardiac catheterization: 01/13/2009: FINAL IMPRESSION 1. Relatively normal left ventricular end diastolic pressure pre angiographic dye load with mild elevation post angiographic dye load. 2. Left ventricle: A) Mild hypokinesis of the mid diaphragmatic segments. B) Estimated LVEF of 55%. 3. Left main: A) Distal 10% to 25% stenosis extending into the LAD and LCX system. LAD: A) Ostial 25% appearing stenosis. B) Proximal 25% diffuse irregular appearing stenosis. C) First diagonal branch with proximal 25% appearing stenosis. 0) LAD left?to?left collateral flow to the left PDA system. LCX; A) Ostial 25% to 50% appearing stenosis. B> 10% to 25% appearing stenosis. C) Left PDA with proximal 75% stenosis followed by subsequent occlusion with the remainder of the left PDA system filling from left?to?left collateral flow from. the LAD. RCA: A) Small nondominant right. B) Proximal 75% appearing stenosis. C) Proximal to mid 65% irregular appearing stenosis. Holter monitor: 01/11/2011 NORMAL SINUS RHYTHM MINIMUM HR 52 8PM AT 4:33:02 AM, NO ACTIVITY OR SYMPTOM RECORDED. AVERAGE HR 71 8PM MAXIMUM HR 110 8PM AT 11:27:58 AM, NO ACTIVITY OR SYMPTOM RECORDED. RARE ISOLATED PREMATURE ATRIAL COMPLEXES. 4 ATRIAL COUPLETS. NO RUNS NOTED. FREQUENT ISOLATED PREMATURE VENTRICULAR COMPLEXES. OCCASIONAL VENTRICULAR BIGEMINY, TRIGEMINY, AND QUADRIGEMINY. 6793 VENTRICULAR COUPLETS VS ABERRANCY. 1432 VENTRICULAR TRIPLETS VS ABERRANCY 28 RUNS TOTALING 125 BEATS. THE LONGEST RUN WAS 8 BEATS OF PROBABLE ABERRANCY RATE 119 BPM AT 7:07:08 PM. THE FASTEST RUN WAS 4 BEATS OF PROBABLE ABERRANCY RATE 124 BPM AT 7:48:39 PM. NO SYMPTOMS DOCUMENTED IN 24 HOUR HOLTER DIARY. Labs: No Data to Display Diagnostics: No Data to Display Pulmonary: No Data to Display Past Visits: Cardiology Visit 03/20/25 Assessment and Plan Assessment and Plan (1) Essential hypertension: Status: Chronic Plan: His blood pressure is under good control at this particular time would not recommend that we make any changes (2) Nonsustained ventricular tachycardia: Status: Chronic Plan: He has previously had some ventricular dysrhythmias. This is being monitored with loop recorder interrogations. He has not had any symptoms of syncope. (3) Implantable loop recorder present: Status: Acute Plan: Patient will continue with regular scheduled loop recorder interrogations. (4) Edema: Status: Acute Plan: Encouraged use of compression stocking and leg elevated. 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) Coding Level of Care Code Off vis,est,level 4 Diagnoses Essential hypertension I10 Nonsustained ventricular tachycardia I47.2 Implantable loop recorder present Z95.818 Edema R60.9 Coding Level of Care Code Off vis,est,level 4 Diagnoses Essential hypertension I10 Nonsustained ventricular tachycardia I47.2 Implantable loop recorder present Z95.818 Edema R60.9 Clinical Quality Measures Falls Risk Screening/Assistive Devices Have you fallen in the past year?: Yes (3 in november tripped (dx: hydrocephalus)) Cardiac Ejection fraction %: 60 03/20/25 0915 <Electronically signed by Kenzie Kincaid> Date _ Kenzie Townsend Signature: Date (if applicable) CC: Dr. Price Herndon MD ~ [facility] Work Phone: 1(986) 381-800505-29-2025 Discharge summary Author Bob Mcmahan [facility] Note Date/Time February 20, 2025 7:00p m [facility] Physical Therapy [facility] [address] [place] [address] / REHABILITATION SERVICES DISCHARGE SUMMARY MR#: [id number] Acct: [id number] Name: ADOLFO RIVERA Rep #: [id number] : 1945 79 From: Cert. SHELLY RomeroT, OCS Referring Dr.: Dr. Price Herndon MD Status: REG RCR Insurance: MEDICARE PART A B ANTH Discharge Summary D/C summary: It has been my pleasure to treat ADOLFO RIVERA referred by Dr. Price Herndon MD, with the diagnosis of LOW BACK PAIN AND FALLS for a total of 8 visit(s). Discharge Date: 02/20/25 Please see the following information for a summary of their discharge status. Subjective Subjective: Plan to have MRI brain Plan to see pain management Pain Bilateral Back: Pain Intensity (Out of 10): 3 Overall Improvement % Improvement: 10 Objective Objective/Function: POSTURE: mod thoracic kyphosis GAIT : reciprocal pattern shuffles steps slow syeda mod thoracic kyphosis ,hips/knees flexed PALAPTION: tender LS LUMBAR ROM: flexion mod loss ,extension severe loss ,side glides mod loss FLEXABILITY: hamstrings mod tight MMT: ( peak force) quads right 52.1 ,left 41.9 ,hamstrings right 30.5 ,left 32.9 ,hip flexion right 29.7 ,left 28.2 Goals Goal 1:: Patient to be I with HEP for back Goal Progress: Goal Met Goal 2:: Patient to improve CATSIBE by 5 points improve balance and risk of falls Goal Progress: Progressing Goal 3:: Patient to improve functional gait assessment score by 5 points to decrease risk of falls Goal Progress: Progressing Goal 4:: Patient to improve back oswestry score by 5 points to improve QOL and function Goal Progress: Progressing Goal 5:: Patient to improve peak force quads/hams/hip by 5 # to improve QOL and function Goal Progress: Progressing Plan Plan: D/C D/C Information Discharge Comments: HEP d/c sentence: If there are questions or concerns regarding this patient's physical therapy, please feel free to call me at [phone]. Thank you for the referral of thispatient. Sincerely, Bob Mcmahan PT, Cert T, OCS Balance/Gait/Functional tests Balance/Special Test Scores Functional Gait Assessment Score: 18 % Disability: 40.0000 CATSIB Score (Max score 120 seconds): 70 Oswestry Low Back Score: 30 Improvement % Improvement: 10 <Electronically signed by Cert. FREDDY Thomson PT, KONSTANTIN> 02/21/25 1024 CC: Dr. Price Herndon MD ~ [facility] Signed [facility] Work Phone: 1([phone]) 976-518005-29-2025 Discharge summary [facility] Physical Therapy [facility] [address] [place] [address] [address] [place] [address] / REHABILITATION SERVICES DISCHARGE SUMMARY MR#: [id number] Acct: [id number] Name: ADOLFO RIVERA Rep #: [id number] : 1945 79 From: Cert. FREDDY Romero, OCS Referring Dr.: Dr. Price Herndon MD Status: REG RCR Insurance: MEDICARE PART A B ANTH Discharge Summary D/C summary: It has been my pleasure to treat ADOLFO RIVERA referred by Dr. Price Herndon MD, with the diagnosis of LOW BACK PAIN AND FALLS for a total of 8 visit(s). Discharge Date: 02/20/25 Please see the following information for a summary of their discharge status. Subjective Subjective: Plan to have MRI brain Plan to see pain management Pain Bilateral Back: Pain Intensity (Out of 10): 3 Overall Improvement % Improvement: 10 Objective Objective/Function: POSTURE: mod thoracic kyphosis GAIT : reciprocal pattern shuffles steps slow syeda mod thoracic kyphosis ,hips/knees flexed PALAPTION: tender LS LUMBAR ROM: flexion mod loss ,extension severe loss ,side glides mod loss FLEXABILITY: hamstrings mod tight MMT: ( peak force) quads right 52.1 ,left 41.9 ,hamstrings right 30.5 ,left 32.9 ,hip flexion right29.7 ,left 28.2 Goals Goal 1:: Patient to be I with HEP for back Goal Progress: Goal Met Goal 2:: Patient to improve CATSIBE by 5 points improve balance and risk of falls Goal Progress: Progressing Goal 3:: Patient to improve functional gait assessment score by 5 points to decrease risk of falls Goal Progress: Progressing Goal 4:: Patient to improve back oswestry score by 5 points to improve QOL and function Goal Progress: Progressing Goal 5:: Patient to improve peak force quads/hams/hip by 5 # to improve QOL and function Goal Progress: Progressing Plan Plan: D/C D/C Information Discharge Comments: HEP d/c sentence: If there are questions or concerns regarding this patient's physical therapy, please feel free to call me at [phone]. Thank you for the referral of thispatient. Sincerely, Bob Mcmahan PT, Cert MDT, OCS Balance/Gait/Functional tests Balance/Special Test Scores Functional Gait Assessment Score: 18 % Disability: 40.0000 CATSIB Score (Max score 120 seconds): 70 Oswestry Low Back Score: 30 Improvement % Improvement: 10 02/21/25 1024 CC: Dr. Price Herndon MD ~ [facility] Signed [facility]12-09-2024 Note ORIGINAL EXAMINATION: MRI OF THE LUMBAR SPINE WITHOUT CONTRAST, 09/02/2024 9:23 am TECHNIQUE: Multiplanar multisequence MRI of the lumbar spine was performed without the administration of intravenous contrast. COMPARISON: Lumbar spine 07/25/2024. HISTORY: ORDERING SYSTEM PROVIDED HISTORY: Reason for Exam: Intractable lumbar pain and bilateral buttock pain., Failed physical therapy, failed lumbar injections FINDINGS: BONES/ALIGNMENT: About 7 mm of anterolisthesis of L4 on L5 is present from hypertrophic facet arthropathy. About 4 mm of anterolisthesis of L3 on L4. SPINAL CORD: The conus terminates normally. SOFT TISSUES: No paraspinal mass identified. L1-L2: There is degenerative disc space narrowing and hypertrophic facet arthropathy without significant canal or foraminal stenosis. L2-L3: There is degenerative disc space narrowing and facet arthropathy without significant canal or foraminal stenosis. L3-L4: There is hypertrophic facet arthropathy with grade 1 anterolisthesis of L3 on L4 and moderately severe canal stenosis. L4-L5: There is hypertrophic facet arthropathy with grade 1 anterolisthesis of L4 on L5 with severe canal stenosis. L5-S1: There is hypertrophic facet arthropathy with moderately severe bilateral foraminal stenosis. IMPRESSION: 1. Degenerative changes of the lumbar spine with severe canal stenosis at L4-L5 and moderately severe canal stenosis at L3-L4. 2. Moderately severe bilateral foraminal stenosis at L5-S1. Interpreted by: Itz Nolan Preliminary Report By: Itz Nolan Electronically signed By Itz Nolan Dictated Date: 09/02/2024 10:33:41 AM Prelim Date: 09/02/2024 10:41:02 AM Sign Date: 09/02/2024 10:41:02 AM Ordering Provider: [facility]09-22-2023 Discharge summary Author Itz Napier [facility] June 16, 2023 10:23am Note Date/Time June 16, 2023 10:23am [facility] Physical Therapy [facility] [address] [place] [address] [address] [place] [id number] / REHABILITATION SERVICES DISCHARGE SUMMARY MR#: [id number] Acct: [id number] Name: ADOLFO RIVERA Rep #: [id number] : 1945 77 From: Itz Napier DPT, OCS, CSCS Referring Dr.: Dr. Burton Quinn DO Status: REG RCR Insurance: MEDICARE PART A B ANTHEM Discharge Summary D/C summary: It has been my pleasure to treat ADOLFO RIVERA referred by Dr. Burton Quinn DO, with the diagnosis of s/p R TKA 04/18/23 for a total of 19 visit(s). Discharge Date: 06/16/23 Please see the following information for a summary of their discharge status. Subjective Subjective: Still swollen but doing well overall. No pain. Activiities are normal at home. Using cane to get around away from home, does not need it at home. No giving out of knee. Just walking as exercises at home. Sleeping is good. Thinks can do gym exercises at home. Pain R knee: Pain Intensity (Out of 10): 0 R foot: Pain Intensity (Out of 10): 0 Overall Improvement % Improvement: 90 Objective Objective/Function: 18 girth at line and 22 inch 6 inch above 0-110 AROM with some pain. 51# R hs strength 66# quad strength R. Walking well with adn without the cane. Steps reciprocally with rail, R painful slightly and traansiently descending buyt able and funcitonally strong. Goals Goal 1:: 0-110 arom to do steps normally. Goal Progress: Goal Met Goal 2:: Walk without AD I in community safely Goal Progress: cane in community Goal 3:: steps reciprocally with one rail safe Goal Progress: Goal Met Goal 4:: I approp gym ex to continue strength Goal Progress: Goal Met Goal 5:: Pain 0-1/10 at all times Goal Progress: Goal Met Plan Plan: d/c to gym program and HEP D/C Information Discharge Comments: Will continue via hep and gym ex as silver sne[employer] member. See doctor in a week or two. d/c sentence: If there are questions or concerns regarding this patient's physical therapy, please feel free to call me at [phone]. Thank you for the referral of thispatient. Sincerely, Itz Napier DPT, OCS, CSCS Balance/Gait/Functional tests Balance/Special Test Scores Functional Gait Assessment Score: 24 % Disability: 20.0000 WOMAC Total Score: 25 WOMAC Percentage: 73.9600 Improvement % Improvement: 90 <Electronically signed by Itz Napier DPT, OCS, CSCS> 06/16/23 1023 CC: Dr. Burton Quinn DO; Dr. Price Herndon MD ~ EBG Signed [facility] Work Phone: 1(357) 256-363307-26-2023 Consult note Author Rufus Clemente [facility] April 19, 2023 2:07pm Note Date/Time April 19, 2023 2:07 pm [facility] Medical Records Department [address] [place] [address] Counseling Note - Pharmacy 04/19/23 1403 MR#: [id number] Acct: [id number] Name: ADOLFO RIVERA Rep #:[id number] : 1945 77 From: Rufus Clemente PCP: Dr. Price Herndon MD Status:ADM I N Y [facility] Service has performed discharge medication reconciliation and counseling for this patient. 1. Eliquis 2.5 mg BID PO 2. Acetaminophen 1000 mg PO Q6H PRN 3. Oxycodone 5-10 mg PO q4H PRN The patient's discharge medication list was reviewed for discrepancies and discrepancies were resolved. The patient was counseled on the following discharge medications and changes in medications for homegoing were reviewed. The Reason for Use, instructions for use, and potential side effects were reviewed for all new medications. The patient's questions regarding all of their medications were answered. The patient was able to verbally demonstrate an understanding of their dischargemedications. The patient was counselled on Eliquis, Acetaminophen, and Oxycodone prescriptions by national opelint analyst Rudolph. Medications at Discharge Home Medications coenzyme Q10 100 mg capsule 100 mg PO DAILY SUPPLEMENT 05/17/17 glucosamine HCl 1,500 mg tablet 1,500 mg PO QDAY SUPPLEMENT 01/18/18 isosorbide mononitrate 60 mg tablet,extended release 24 hr 60 mg PO DAILY HEART #90 tabs 01/18/18 calcium carbonate 500 mg-vitamin D3 10 mcg (400 unit) tablet 1 tab PO DAILY SUPPLEMENT 01/19/22 doxazosin 4 mg tablet 4 mg PO QHS BP #90 tabs 09/05/22 multivitamin 1 tab PO DAILY SUPPLEMENT 09/05/22 pravastatin 40 mg tablet 40 mg PO QHS CHOLESTEROL #90 tabs 09/05/22 nitroglycerin 0.4 mg sublingual tablet 0.4 mg sublingual Q5M PRN cp #20 tabs 02/23/23 potassium chloride 20 mEq tablet,extended release(part/cryst) 20 meq PO DAILY SUPPLEMENT #90 tabs 02/23/23 furosemide 20 mg tablet (Lasix) 40 mg PO PRN EDEMA 03/23/23 diltiazem HCl 120 mg capsule,extended release 24 hr 120 mg PO DAILY BP #90 caps 03/30/23 acetaminophen 500 mg tablet 1,000 mg (2 x 500 mg) PO Q6H PRN #100 tabs 04/19/23 apixaban 2.5 mg tablet (Eliquis) 2.5 mg PO BID #30 tabs 04/19/23 oxycodone 5 mg tablet 5 - 10 mg (1 - 2 x 5 mg) PO Q4H PRN pain 7 days #60 tabs 04/19/23 04/19/23 1407 <Electronically signed by Rufus hayes> Date _ Rufus Martinezigner Signature (if applicable): Date CC: ~ Signed [facility] Work Phone: 1(768) 403-983707-26-2023 Discharge summary [facility] April 19, 2023 12:38pm Note Date/Time April 19, 2023 12:3 5pm [facility] Medical Records Department [address] [place] [address] Instructions for Home/Discharge Instructions 04/19/23 1234 MR#: [id number] Acct: [id number] Name: ADOLFO RIVERA Rep #:[id number] : 1945 77 From: Burton Quinn DO PCP: Dr. Price Herndon MD Status:ADM I N Discharge Instructions Diet Discharge Diet: No restrictions Dressing / Incision Call your doctor if you observe: Shortness of breath and Chest pain Additional Dressing/Incision Instructions:: Ice and elevate lower extremities 2 weeks while not ambulating. Ambulation is encouraged. Weight bearing as tolerated. Use assistive devise for stability. Encourage FULL knee extension and flexion 1 time EVERY time you get up and down and MULTIPLE times per day. No showering 72 hours after surgery. Begin showering postop day #3. Remove the dressing prior to shower and gently wash with warm water and antibacterial soap then pat dry and place abdominal pad (or plain gauze) and MISAEL hose over top. This is to be done daily. Do not submerge for 3 weeks. If not showering daily after the initial 72 hours then you must clean incision and change dressing daily. Do not allow animals near the incision area. Keep clean. Follow anti-coagulation recommendations as prescribed. Do not take any NSAIDs while on blood thinner. Do not take any additional narcotic pain medication other than what was prescribed on your surgery day without discussing with physician. Narcotic medication can be addictive. Do not drink alcohol while taking narcotics. Supplement narcotic prescription with acetaminophen 1000 mg 4 times aday. Start physical therapy. If you are not currently scheduled for physical therapy or you are unsure of appointment time please call office MP to arrange. Call Dr. Quinn with any concerns. Follow Up Care Please Follow Up With: Burton Quinn DO When: 2 weeks Test Results: Test results from this visit will be discussed in further detail at your follow- up appointment, if applicable. Discharge Plan Admission Admit Date/Time: 04/18/23 06:03 Primary Reason for Your Visit: Right total knee arthroplasty Attending Provider: Burton Quinn Primary Care Provider: Price Herndon Chi Discharge Orders/Prescriptions Prescriptions: New acetaminophen [acetaminophen] 500 mg tablet 1,000 mg PO Q6H PRN Qty: 100 0RF Eliquis 2.5 mg tablet 2.5 mg PO BID Qty: 30 0RF oxycodone 5 mg tablet 5 - 10 mg PO Q4H PRN (Reason: pain) 7 Days Qty: 60 0RF Continued isosorbide mononitrate 60 mg tablet extended release 24 hr 60 mg PO DAILY Qty: 90 3RF glucosamine HCl 1,500 mg tablet 1,500 mg PO QDAY calcium carbonate-vitamin D3 500 mg-10 mcg (400 unit) tablet 1 tab PO DAILY potassium chloride 20 mEq tablet,ER particles/crystals 20 meq PO DAILY Qty: 90 4RF nitroglycerin 0.4 mg tablet, sublingual 0.4 mg SUBLINGUAL Q5M PRN (Reason: cp) Qty: 20 1RF furosemide [Lasix] 20 mg tablet 40 mg PO PRN coenzyme Q10 100 MG capsule 100 mg PO DAILY multivitamin Tablet 1 tab PO DAILY doxazosin 4 mg tablet 4 mg PO QHS Qty: 90 3RF pravastatin 40 mg tablet 40 mg PO QHS Qty: 90 3RF diltiazem HCl 120 mg capsule,extended release 24hr 120 mg PO DAILY Qty: 90 3RF Referrals / Follow Up: Price Herndon Chi, MD [Primary Care Provider] - Disposition Disposition (needs filled in before D/C Order can be placed): Home, Self Care 04/19/23 1238<Electronically signed by Burton Quinn DO>[place] CC: Dr. Price Herndon MD ~ Signed [facility] Work Phone: 1(433) 211-916507-26-2023 Progress note Author [facility] April 19, 2023 12:34pm Note Date/Time April 19, 2023 12:3 4pm [facility] Medical Records Department [address] [place] [id number] Progress Note - Orthopedic 04/19/23 1232 MR#: [id number] Acct: [id number] Name: ADOLFO RIVERA Rep #:[id number] : 1945 77 From: Burton Quinn DO PCP: Dr. Price Herndon MD Status:ADM I N Location: [place] [address] Subjective Subjective Patient seen and examined. Doing well pain controlled denies nausea vomiting shortness of breath or chest pain no other complaints, was able to ambulate withphysical therapy Objective Data Objective Data Vital Signs: Vital Signs Temp Pulse Resp BP Pulse Ox O2 Del Method O2 Flow Rate 97.8 F 73 16 141/67 H 98 Room Air 4 04/19/23 09:36 04/19/23 09:36 04/19/23 09:36 04/19/23 09:36 04/19/23 09:36 04/19/23 09:38 04/18/23 12:49 Oxygen Flow Rate (L/min) 4 Oxygen Delivery Method Room Air Weight: 259 lb 3.2 oz Body Mass Index (BMI) 37.1 Intake & Output: Intake and Output for Last 24 Hours 04/17/23 04/18/23 04/19/23 23:59 23:59 23:59 Intake Total 4332 / 4332 1154.75 / 1154.75 Output Total 1375 / 1375 1650 / 1650 Balance 2957 / 2957 -495.25 / -495.25 Lab / Micro Data 04/19/23 05:30 04/19/23 05:30 Labs: Laboratory Results - last 24 hr 04/19/23 05:30: WBC 7.6, RBC 3.57 L, Hgb 11.9 L, Hct 35.8 L, MCV 100.3 H, MCH 33.3 H, MCHC 33.2, RDW Std Deviation 49.6 H, RDW Coeff of Dc 13.3, Plt Count 179, MPV 9.9, Sodium 137, Potassium 4.7, Chloride 104, Carbon Dioxide 30.0, Anion Gap 3 L, BUN 11, Creatinine 0.87, Estim Creat Clear Calc 71.09, Est GFR (MDRD) Af Amer 109, Est GFR (MDRD) Non-Af 90, BUN/Creatinine Ratio 12.7, Rcgibkb280 H, Calcium 8.7 Micro: Microbiology 04/12/23 08:34 Swab (Method) Nasal Screen MRSA/MSSA - Final Physical Exam Const alert, oriented x3 and no apparent distress General Appearance: cooperative Extremity Extremity Narrative: Right knee dressing clean dry intact compartment soft neurovascular intact Assessment & Plan Assessment/Plan (1) S/P total knee arthroplasty: QUALIFIERS: Laterality: right Qualified Code(s): Z96.651 - Presence of right artificial knee joint PLAN: Plan Postop day #1 right total knee arthroplasty. PT OT weightbearing as tolerated encourage knee range of motion DVT prophylaxis Eliquis 2.5 mg twice daily thigh-high MISAEL hose SCDs DC planning home tomorrow outpatient physical therapy Follow-up in the office 2 weeks 04/19/23 1234 <Electronically signed by Burton Quinn DO> Cosigner Signature (if applicable): CC: ~ Signed [facility] Work Phone: 1(594) 106-892007-25-2023 Procedure [facility] 04-18-2023 History and physical note Author Burton Quinn [facility] April 18, 2023 7:06am Note Date/Time April 18, 2023 7:06 am [facility] Medical Records Department [address] [place] [address] History & Physical Exam 04/18/23 0705 MR#: [id number] Acct: [id number] Name: ADOLFO RIVERA Rep #:[id number] : 1945 77 From: Burton Quinn DO PCP: Dr. Price Herndon MD Status:ADM I N Location: [facility] AC-TB A-1 History and Physical Date of Admission: 04/18/23 [facility] [address] [place] [address] [address] [place] [address] OFFICE VISIT Date of Service: 04/07/23 MR#: [id number] Acct: [id number] Name: ADOLFO RIVERA Rep #: [id number] : 1945 Provider: Dr. Burton Quinn DO Age/Sex: 77/M Location: [facility] Status: Signed Intake Vital Signs 02/24/2308:26 03/31/2310:42 Height 5 ft 10 in 5 ft 10 in Intake Visit Reasons: right knee Chief Complaint: right knee Accompanied by: Self Is patient in pain?: Yes Allergies Beta-Blockers (Beta-Adrenergic Bloc Allergy (Severe, Verified 03/23/23 09:30) Hivesceftriaxone [From Rocephin] Allergy (Severe, Verified 03/23/23 09:30) Anaphylaxishydralazine Allergy (Severe, Verified 03/23/23 09:30) Swelling- eyes, feetIodinated Contrast Media [CONTRASTS] Allergy (Verified 03/23/23 09:30) Hivesiodine Allergy (Verified 03/23/23 09:30) HivesACE Inhibitors Adverse Reaction (Severe, Verified 03/23/23 09:30) Swellingamlodipine Adverse Reaction (Severe, Verified 03/23/23 09:30) Edema,legsclonidine Adverse Reaction (Severe, Verified 03/23/23 09:30) RAshvalsartan [From Diovan] Adverse Reaction (Severe, Verified 03/23/23 09:30) RAsh Medications coenzyme Q10 100 mg capsule 100 mg PO DAILY 05/17/17 [History Confirmed 04/07/23] chondroitin sulfate A sodium 400 mg capsule 1,200 mg PO QDAY 01/18/18 [History Confirmed 04/07/23] glucosamine HCl 1,500 mg tablet 1,500 mg PO QDAY 01/18/18 [History Confirmed 04/07/23] isosorbide mononitrate 60 mg tablet,extended release 24 hr 60 mg PO DAILY #90 tabs 01/18/18 [Rx Confirmed 04/07/23] calcium carbonate 500 mg-vitamin D3 10 mcg (400 unit) tablet 1 tab PO DAILY 01/19/22 [History Confirmed 04/07/23] cetirizine 10 mg tablet (Zyrtec) 10 mg PO DAILY PRN allergy symptoms 01/19/22 [History Confirmed 04/07/23] doxazosin 4 mg tablet 4 mg PO QHS #90 tabs 09/05/22 [Rx Confirmed 04/07/23] multivitamin 1 tab PO DAILY 09/05/22 [History Confirmed 04/07/23] pravastatin 40 mg tablet 40 mg PO QHS #90 tabs 09/05/22 [Rx Confirmed 04/07/23] nitroglycerin 0.4 mg sublingual tablet 0.4 mg sublingual Q5M PRN cp #20 tabs 02/23/23 [Rx Confirmed 04/07/23] potassium chloride 20 mEq tablet,extended release(part/cryst) 20 meq PO DAILY #90 tabs 02/23/23 [Rx Confirmed 04/07/23] furosemide 20 mg tablet (Lasix) 40 mg PO DAILY 03/23/23 [History Confirmed 04/07/23] diltiazem HCl 120 mg capsule,extended release 24 hr 120 mg PO DAILY #90 caps 03/30/23 [Rx Confirmed 04/07/23] [facility] Medical History Acute respiratory failure with hypoxia Asthma Atherosclerotic heart disease of [place] coronary artery without angina pectoris Essential hypertension Hiatal hernia Long-term use of high-risk medication Nonsustained ventricular tachycardia Obesity (BMI 30-39.9) PAC (premature atrial contraction) Pure hypercholesterolemia PVC (premature ventricular contraction) Syncope Surgical History History of carpal tunnel surgery History of cataract extraction History of cholecystectomy Family History Mother CAD (coronary artery disease) Myocardial infarctionFather CAD (coronary artery disease) Myocardial infarctionBrother CAD (coronary artery disease) Hx of CABGBrother CAD (coronary artery disease) Social History Smoking Status: Never smoker alcohol intake: current details: occasional substance use type: does not use caffeine: Yes Type: coffee Number of servings: 3 HPI right knee Details: Parts of this documentation were recorded by a scribe, this documentation accurately reflects the service provided and the decisions made by me, Dr. Burton Quinn, DO 04/07/23 1012. ADOLFO RIVERA is a 77 year old M here today for right knee IOVERA treatment priorto TKA that is scheduled for 04/18/23. He continues to have right knee pain withambulation and WB. Ortho Exam General General: Yes no acute distress Neurologic: Yes alert and Yes oriented x3 Psychologic: Yes reasonable and appropriate Right Knee Skin/Wound: Yes CDI, No erythema, No ecchymosis and No swelling Homans Sign: No Knee ROM: No ROM-Extension -20 to 0 (5) and No ROM-Flexion 0-140 (105) Examination: Yes Med jt line tenderness and Yes Lat jt line tenderness Stability: NML: Anterior Drawer and NML: Posterior Drawer Patella Translation: 1 Patella Grind: Yes KNEE: pitting edema to right leg faint joint effusion no collateral instability intact sensation to light touch Left Knee Skin/Wound: Yes CDI, No ecchymosis, No erythema and No swelling Homans Sign: No Knee ROM: Yes ROM-Extension -20 to 0 and No ROM-Flexion 0-140 (118) Examination: Yes med jt line tenderness and Yes Lat jt line tenderness Stability: NML: Anterior Drawer, NML: Posterior Drawer, NML: Valgus 30 and NML: Varus 30 Patella Translation: 1 Patella Grind: Yes KNEE: edema to distal 3rd of leg no collateral instability no joint effusion intact sensation to light touch Head: Normocephalic Atraumatic Chest: symmetrical rise, non-labored breathing, no audible wheeze Abdomen: no guarding, non-rigid Office Procedures Iovera Procedure Details:: Preoperative diagnosis :right knee pain Postoperative diagnosis: Same Procedure: Cryotherapy with Iovera device to anterior femoral cutaneous nerve and 2 branches of the infrapatellar saphenous nerve III nerves in total Description of procedure: Patient was brought back to the procedure room the operative extremity was identified by both patient and physician. The PIP flexion crease was measured to the midpoint of the patella and this distance wasdivided in 3 resulting in 10 cm location proximal to the midpoint of the patella. This line was extended medial and lateral to the extent of the edges of the patella. This was our treatment line for the anterior femoral cutaneous nerve. A second treatment line was made 5 cm medial to the inferior pole of thepatella and 5 cm distally. The leg was prepped with alcohol and Betadine. Lidocaine with epi was used along the treatment lines. Using the Iovera device treatment lines were treated with 1 minute cycles. Reproduction of paresthesiaswas monitored in the area of nerve distribution. Once all 3 nerves were treatedacross the 2 treatment lines patient was cleaned and a light dressing with 4 x 4and Nahum wrap was applied. Patient tolerated the procedure without complication. Supplemental Info 01/24/2023 x-ray right knee: Advanced tricompartmental DJD [id number] 02/06/2023 x-ray left knee: Moderate to advanced tricompartmental DJD Coding Level of Care Code Attention Kristie Diagnoses Chronic pain of right knee M25.561; G89.29 Chronicity: chronic Assessment and Plan Assessment and Plan (1) Right knee pain: Status: Acute Qualifiers: Chronicity: chronic Qualified Code(s): M25.561 - Pain in right knee; G89.29 - Other chronic pain Orders: Orders Iovera Today M25.569 - Pain in unspecified knee Plan Patient educated on the IOVERA procedure and the bennifits. He wishes to proceedwith IOVERA treatment today in the office. He is also schedule for a Right TKA. DOS: 04/18/23 Risks, benefits and alternatives of surgery reviewed including butnot limited to bleeding, infection, nerve, artery and/or tissue damage, fracture, VTE, mechanical feel of the knee, continued pain, stiffness and expected post- operative course. He does have Follow up 2 weeks post op or sooner if pain, swelling, numbness or associated symptoms, or concerns develop. All questions answered. Patient in agreement of plan. 04/07/23 1104 <Electronically signed by Burton Quinn DO> Date Burton Quinn DO Cosigner Signature: Date (if applicable) CC: ~ I have examined the patient and the H&P has been reviewed. There are no clinicalchanges since date of exam. 04/18/23 0706 <Electronically signed by Burton Quinn DO> Cosigner Signature (if applicable): CC: Dr. Burton Quinn DO; Dr. Price Herndon MD~ Signed [facility] Work Phone: 1(755) 332-465405-29-2023 History of Present illness Narrative* Haylee Watts PA-C - 02/20/2023 2:54 PM EDT Triage: 77 yo male with h/o HTN, nonsustained v-tach, premature ventricular beats, premature atrial contractions, and CAD that is here today for syncope at home about 30 minutes ago. drove him here. He mowed the lawn today- riding mower. Came inside. They both report that he was just sitting at home talking on the phone and passed out. Eyes rolled back in his head and he passed out. No fall. No signs of seizure activity. feels that his lower lip got "blue." Unclear for how long- "Maybe a minute or so or more." Awakened on own. Pre-syncope and post syncope, he denies any- He denies any MCKEON, numbness, tingling, weakness, changes in speech, MS changes, neuro changes. He denies any feeling of chest/arm/back/neck/jaw pain, palpitations, reflux, n/v, heart racing, etc. He states he "feels fine now, maybe a little weak and light headed." There were no vitals taken for this visit.. Vital signs reviewed by this provider. AAOx3, no acute distress, patient is pleasant, well groomed, dressed appropriately. Sitting in wheel chair- appears comfortable. Able to give HPI and answer questions. General: WD, WN, NAD, alert. HEENT: No facial erythema or swelling. Neuro: No facial symmetry. Chest: CTA bilaterally with equal breath sounds; good air exchange throughout. No wheezing, rhonchi, or crackles; no retractions, tripoding, or nasal flaring noted. Heart: RRR, no murmur, rub, or gallop.. ASSESSMENT/PLAN: 1. Syncope, unspecified syncope type - ICD9: 780.2, ICD10: R55 - Cannot fully evaluate in Exp Care Referred to [place] ED to drive They agreed and VU. No further questions or concerns. I went with the patient out to their car. Adolfo was able to get out of the chair himself anf get into the car without assistance or difficulty. No charge Haylee Watts PA-C documented in this encounterUniversity [facility]als [facility] Centeraluation + Plan note Future Appointments Appointment Date:09/10/2024 10:10:00 AM Scheduled Provider:KAREN SOMERS DO Location:[facility] Appointment Type:[facility] Review Testing [facility] Evaluation note* Diagnosis Onset Date Resolution Status Atherosclerotic heart diseas e of [place] coronary artery without angina pectoris chronic Essential hypertension chron ic Nonsustained ventricular tachycardia chronic PAC (premature atrial contraction) chronic Pure hypercholesterolemia ch ronic PVC (premature ventricular contraction) chronic [facility] Work Phone: Evaluation noteNo assessment information available [facility] Work Phone: Evaluation note* Diagnosis Syncope, unspecified syncope type- Primary documented in this encounter [facility] note* Diagnosis Onset Date Resolution Status Osteoarthritis of knees, bilateral acute [facility] Work Phone: Evaluation note* Diagnosis Onset Date Resolution Status Osteoarthritis of knees, bilateral acute Essential hypertension chron ic Nonsustained ventricular tachycardia chronic Syncope acute Essential hypertension chron ic Nonsustained ventricular tachycardia chronic [facility] Work Phone: Evaluation note* Diagnosis Onset Date Resolution Status Osteoarthritis of knees, bilateral acute Essential hypertension chron ic Nonsustained ventricular tachycardia chronic Syncope acute Essential hypertension chron ic Nonsustained ventricular tachycardia chronic Right knee pain acute S/P total knee arthroplasty [facility] Work Phone: Evaluation note* Diagnosis Onset Date Resolution Status Osteoarthritis of knees, bilateral acute Essential hypertension chron ic Nonsustained ventricular tachycardia chronic Syncope acute Essential hypertension chron ic Nonsustained ventricular tachycardia chronic Right knee pain acute S/P total knee arthroplasty acute Orthopedic aftercare [facility] Work Phone: Evaluation note* Diagnosis Onset Date Resolution Status Osteoarthritis of knees, bilateral acute Essential hypertension chron ic Nonsustained ventricular tachycardia chronic Syncope acute Essential hypertension chron ic Nonsustained ventricular tachycardia chronic Right knee pain acute S/P total knee arthroplasty acute Orthopedic aftercare acute Orthopedic aftercare [facility] Work Phone: Evaluation note* Diagnosis Onset Date Resolution Status Essential hypertension chron ic Nonsustained ventricular tachycardia chronic Syncope acute Essential hypertension chron ic Nonsustained ventricular tachycardia chronic Right knee pain acute S/P total knee arthroplasty acute Orthopedic aftercare acute Orthopedic aftercare acute S/P total knee arthroplasty [facility] Work Phone: Evaluation note* Diagnosis Onset Date Resolution Status Admit Date Edema acute March 20 8:08am Implantable loop recorder present acute March 20, 2025 8:08am Essential hypertension chronic Ju ne 2024 8:08am Nonsustained ventricular tachycardia chronic March 20, 2025 8:08am [facility] Work Phone: Hospital course Narrative No data available for this section [facility] Hospital Discharge instructions No data available for this section [facility] Progress note No data available for this section [facility] Reason for referral (narrative)No reason for referral information availableWSt. Elizabeth [facility] Work Phone: Chief Complaint and Reason for Visit Chief Complaint 4 M FU with PFM ([place] ves for [place] in Aug) Reason for Visit Atherosclerotic hear t disease of [place] coronary artery without angina pectoris Essential hypertension Nonsustained ventricular tachycardia PAC (premature atrial contraction) Pure hypercholesterolemia PVC (premature ventricular contraction) Chief Complaint CHILLS WITHOUT FEVER 6 M FU w PFM Reason for Visit Atherosclerotic hear t disease of [place] coronary artery without angina pectoris Essential hypertension Nonsustained ventricular tachycardia PAC (premature atrial contraction) Pure hypercholesterolemia PVC (premature ventricular contraction) Chief Complaint RIGHT KNEE Room 1 OA R KNEE. RX HERE dizziness Reason for Visit Osteoarthritis of kn ees, bilateral Chief Complaint RIGHT KNEE Room 1 dizziness S/P [facility] URGENT FU W CIRCULAR SHEAR OPERATOR PER YANICK SYNCOPE 3 wk fu per CIRCULAR SHEAR OPERATOR OA R KNEE. RX HERE Bilateral primary osteoarthritis of knee Reason for Visit Osteoarthritis of kn ees, bilateral Essential hypertension Nonsustained ventricular tachycardia Syncope Essential hypertension Nonsustained ventricular tachycardia Chief Complaint RIGHT KNEE Room 1 dizziness S/P [facility] URGENT FU W CIRCULAR SHEAR OPERATOR PER YANICK SYNCOPE 3 wk fu per CIRCULAR SHEAR OPERATOR OA R KNEE. 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 RX HERE RT TOTAL KNEE W KADEN RT TOTAL KNEE W KADEN RT TOTAL KNEE W KADEN Reason for Visit Osteoarthritis of kn ees, bilateral Essential hypertension Nonsustained ventricular tachycardia Syncope Essential hypertension Nonsustained ventricular tachycardia Right knee pain S/P total knee arthroplasty Chief Complaint RIGHT KNEE Room 1 dizziness S/P [facility] URGENT FU W CIRCULAR SHEAR OPERATOR PER YANICK SYNCOPE 3 wk fu per CIRCULAR SHEAR OPERATOR Bilateral primary osteoarthritis of knee SYNCOPE AND COLLAPSE right knee OA R KNEE. RX HERE RT TOTAL KNEE W KADEN RT TOTAL KNEE W KADEN RT TOTAL KNEE W KADEN RT TOTAL KNEE W KADEN RT TOTAL KNEE W KADEN RIGHT KNEE RM 1 Reason for Visit Osteoarthritis of kn ees, bilateral Essential hypertension Nonsustained ventricular tachycardia Syncope Essential hypertension Nonsustained ventricular tachycardia Right knee pain S/P total knee arthroplasty Orthopedic aftercare Chief Complaint RIGHT KNEE Room 1 dizziness S/P [facility] URGENT FU W CIRCULAR SHEAR OPERATOR PER YANICK SYNCOPE 3 wk fu per CIRCULAR SHEAR OPERATOR Bilateral primary osteoarthritis of knee SYNCOPE AND COLLAPSE right knee OA R KNEE. RX HERE RT TOTAL KNEE W KADEN RT TOTAL KNEE W KADEN RT TOTAL KNEE W KADEN RT TOTAL KNEE W KADEN RT TOTAL KNEE W KADEN RIGHT KNEE RM 1 right knee ASHD, RT LEG SWELLING R TOTAL KNEE. DR TO FAX/INTERNAL Reason for Visit Osteoarthritis of kn ees, bilateral Essential hypertension Nonsustained ventricular tachycardia Syncope Essential hypertension Nonsustained ventricular tachycardia Right knee pain S/P total knee arthroplasty Orthopedic aftercare Orthopedic aftercare Chief Complaint dizziness S/P [facility] URGENT FU W CIRCULAR SHEAR OPERATOR PER YANICK SYNCOPE 3 wk fu per CIRCULAR SHEAR OPERATOR Bilateral primary osteoarthritis of knee SYNCOPE AND COLLAPSE right knee OA R KNEE. RX HERE RT TOTAL KNEE W KADEN RT TOTAL KNEE W KADEN RT TOTAL KNEE W KADEN RT TOTAL KNEE W KADEN RT TOTAL KNEE W AKDEN RIGHT KNEE RM 1 right knee ASHD, RT LEG SWELLING right knee Room [address] TO FAX/INTERNAL Reason for Visit Essential hypertensi on Nonsustained ventricular tachycardia Syncope Essential hypertension Nonsustained ventricular tachycardia Right knee pain S/P total knee arthroplasty Orthopedic aftercare Orthopedic aftercare S/P total knee arthroplasty Chief Complaint Pacer Check Remote Pacer Check Remote Pacer Check Remote Pacer Check Remote Chief Complaint Admit Date Pacer Check Remote October 24, 2024 4 :35pm Pacer Check Remote November 23, 2024 4:33 pm Pacer Check Remote December 23, 2024 4:3 3pm Pacer Check Remote January 22, 2025 4:3 3pm LOW BACK PAIN. RX HERE January 29, 2025 2:0 0pm Chief Complaint Admit Date Pacer Check Remote November 23, 2024 4:33 pm Pacer Check Remote December 23, 2024 4:3 3pm Pacer Check Remote January 22, 2025 4:3 3pm LOW BACK PAIN. RX HERE February 20, 2025 2: 00pm Chief Complaint Admit Date Pacer Check Remote November 23, 2024 4:33 pm Pacer Check Remote December 23, 2024 4:3 3pm Pacer Check Remote January 22, 2025 4:3 3pm LOW BACK PAIN. RX HERE February 20, 2025 2: 00pm Pacer Check Remote February 21, 2025 4:58p m Chief Complaint Admit Date Pacer Check Remote November 23, 2024 4:33 pm Pacer Check Remote December 23, 2024 4:3 3pm Pacer Check Remote January 22, 2025 4:3 3pm LOW BACK PAIN. RX HERE February 20, 2025 2: 00pm Pacer Check Remote February 21, 2025 4:58p m MULTI FALLS March 17, 2025 9:52 am Chief Complaint Admit Date Pacer Check Remote November 23, 2024 4:33 pm Pacer Check Remote December 23, 2024 4:3 3pm Pacer Check Remote January 22, 2025 4:3 3pm LOW BACK PAIN. RX HERE February 20, 2025 2: 00pm Pacer Check Remote February 21, 2025 4:58p m MULTI FALLS March 17, 2025 9:52 am 1 Y FU March 20, 2025 8:08 am Reason for Visit Admit Date Edema March 20, 2025 8:08 am Implantable loop recorder present February 242024 8:08am Essential hypertension March 20, 2025 8 :08am Nonsustained ventricular tachycardia Roman e 2024 8:08am Chief Complaint Admit Date Pacer Check Remote December 23, 2024 4:3 3pm Pacer Check Remote January 22, 2025 4:3 3pm LOW BACK PAIN. RX HERE February 20, 2025 2: 00pm Pacer Check Remote February 21, 2025 4:58p m MULTI FALLS March 17, 2025 9:52 am 1 Y FU March 20, 2025 8:08 am Pacer Check Remote March 23, 2025 4:34 pm Chief Complaint Admit Date Pacer Check Remote December 23, 2024 4:3 3pm Pacer Check Remote January 22, 2025 4:3 3pm LOW BACK PAIN. RX HERE February 20, 2025 2: 00pm Pacer Check Remote February 21, 2025 4:58p m MULTI FALLS March 17, 2025 9:52 am 1 Y FU March 20, 2025 8:08 am Pacer Check Remote March 23, 2025 4:34 pm SCC R ELBOW April 07, 2025 3:39 pm Chief Complaint Admit Date Pacer Check Remote January 22, 2025 4:3 3pm LOW BACK PAIN. RX HERE February 20, 2025 2: 00pm Pacer Check Remote February 21, 2025 4:58p m MULTI FALLS March 17, 2025 9:52 am 1 Y FU March 20, 2025 8:08 am Pacer Check Remote March 23, 2025 4:34 pm SCC R ELBOW April 07, 2025 3:39 pm in office procedure April 23, 2025 2:42 pm Reason for Visit Admit Date Edema March 20, 2025 8:08 am Implantable loop recorder present February 242024 8:08am Essential hypertension March 20, 2025 8 :08am Nonsustained ventricular tachycardia Roman e 2024 8:08am Neoplasm of uncertain behavior of skin J tayo 2024 3:39pm Chief Complaint Admit Date Pacer Check Remote January 22, 2025 4:3 3pm LOW BACK PAIN. RX HERE February 20, 2025 2: 00pm Pacer Check Remote February 21, 2025 4:58p m MULTI FALLS March 17, 2025 9:52 am 1 Y FU March 20, 2025 8:08 am Pacer Check Remote March 23, 2025 4:34 pm SCC R ELBOW April 07, 2025 3:39 pm in office procedure April 23, 2025 2:42 pm RIGHT ELBOW LESION April 24, 2025 11:3 0am post op May 01, 2025 9:5 5am Reason for Visit Admit Date Edema March 20, 2025 8:08 am Implantable loop recorder present February 242024 8:08am Essential hypertension March 20, 2025 8 :08am Nonsustained ventricular tachycardia Roman e 2024 8:08am Neoplasm of uncertain behavior of skin J tayo 2024 3:39pm Neoplasm of uncertain behavior of skin J tayo 2024 2:42pm Reason for Visit Admit Date Edema March 20, 2025 8:08 am Implantable loop recorder present February 242024 8:08am Essential hypertension March 20, 2025 8 :08am Nonsustained ventricular tachycardia Roman e 2024 8:08am Neoplasm of uncertain behavior of skin J tayo 2024 3:39pm Neoplasm of uncertain behavior of skin J tayo 2024 2:42pm Neoplasm of uncertain behavior of skin A ugust 2024 9:55am Chief Complaint Admit Date Pacer Check Remote January 22, 2025 4:3 3pm LOW BACK PAIN. RX HERE February 20, 2025 2: 00pm Pacer Check Remote February 21, 2025 4:58p m MULTI FALLS March 17, 2025 9:52 am 1 Y FU March 20, 2025 8:08 am Pacer Check Remote March 23, 2025 4:34 pm SCC R ELBOW April 07, 2025 3:39 pm Pacer Check Remote April 22, 2025 4:33 pm in office procedure April 23, 2025 2:42 pm RIGHT ELBOW LESION April 24, 2025 11:3 0am post op May 01, 2025 9:5 5am Chief Complaint Admit Date Pacer Check Remote January 22, 2025 4:3 3pm LOW BACK PAIN. RX HERE February 20, 2025 2: 00pm Pacer Check Remote February 21, 2025 4:58p m MULTI FALLS March 17, 2025 9:52 am 1 Y FU March 20, 2025 8:08 am Pacer Check Remote March 23, 2025 4:34 pm SCC R ELBOW April 07, 2025 3:39 pm Pacer Check Remote April 22, 2025 4:33 pm in office procedure April 23, 2025 2:42 pm RIGHT ELBOW LESION April 24, 2025 11:3 0am post op May 01, 2025 9:5 5am FOLLOW UP May 09, 2025 10 :27am Chief Complaint Admit Date LOW BACK PAIN. RX HERE February 20, 2025 2: 00pm Pacer Check Remote February 21, 2025 4:58p m MULTI FALLS March 17, 2025 9:52 am 1 Y FU March 20, 2025 8:08 am Pacer Check Remote March 23, 2025 4:34 pm SCC R ELBOW April 07, 2025 3:39 pm Pacer Check Remote April 22, 2025 4:33 pm in office procedure April 23, 2025 2:42 pm RIGHT ELBOW LESION April 24, 2025 11:3 0am post op May 01, 2025 9:5 5am FOLLOW UP May 09, 2025 10 :27am Pacer Check Remote May 22, 2025 4: 33pm Reason for Visit Admit Date Edema March 20, 2025 8:08 am Implantable loop recorder present February 242024 8:08am Essential hypertension March 20, 2025 8 :08am Nonsustained ventricular tachycardia Roman e 2024 8:08am Neoplasm of uncertain behavior of skin J tayo 2024 3:39pm Neoplasm of uncertain behavior of skin J tayo 2024 2:42pm Neoplasm of uncertain behavior of skin A ugust 2024 9:55am Neoplasm of uncertain behavior of skin A ugust 2024 10:27am Chief Complaint Admit Date MULTI FALLS March 17, 2025 9:52 am 1 Y FU March 20, 2025 8:08 am Pacer Check Remote March 23, 2025 4:34 pm SCC R ELBOW April 07, 2025 3:39 pm Pacer Check Remote April 22, 2025 4:33 pm in office procedure April 23, 2025 2:42 pm RIGHT ELBOW LESION April 24, 2025 11:3 0am post op May 01, 2025 9:5 5am FOLLOW UP May 09, 2025 10 :27am Pacer Check Remote May 22, 2025 4: 33pm RIGHT LOWER EXT EDEMA June 12 9:31am RT LEG PAIN June 12, 2025 9:58am Pacer Check Remote June 21, 2025 4:33pm Family History No Family History Records Found Relationship Condition Age at Onset Recorded Date/T [place] mother Coronary artery disease Unknown Myocardial infarction Unknown father Coronary artery disease Unknown brother Coronary artery disease Unknown History of coronary artery bypass surgery Unknown Advance Directives No Advanced Directives Records Found Advance Directive Response Recorded Date/ Time Advance Directives Yes May 5:37am Living Will Yes January 07, 2019 1:02pm Power of Yeast Pumper Yes January 07 1:02pm Advance Directive Response Recorded Date/ Time Advance Directives Yes May 4:37am Living Will Yes January 07, 2019 12:02pm Power of Yeast Pumper Yes January 07 12:02pm Advance Directive Response Recorded Date/ Time Name of Medical Power of Yeast Pumper LEONORA RIVERA February 20, 2023 3:23pm Advance Directives Yes May 5:37am Living Will Yes February 20, 2023 3 :23pm Power of Yeast Pumper Yes February 20, 2023 3:23pm Advance Directive Response Recorded Date/ Time Name of Medical Power of Yeast Pumper LEONORA RIVERA February 20, 2023 3:23pm Advance Directives No March 30 8:44am Living Will No March 30, 2023 8 :44am Power of Yeast Pumper No March 30, 2023 8:44am Advance Directive Response Recorded Date/ Time Name of Medical Power of Yeast Pumper LEONORA RIVERA February 20, 2023 3:23pm Advance Directives on File No March 30, 2023 8:44am Advance Directives No March 31 10:42am Living Will No March 31, 2023 1 0:42am Power of Yeast Pumper No March 31, 2023 10:42am Advance Directive Response Recorded Date/ Time Name of Medical Power of Yeast Pumper LEONORA RIVERA February 20, 2023 3:23pm Advance Directives on File No March 30, 2023 8:44am Name of Medical Power of Yeast Pumper , Leonora Rivera April 18, 2023 1:26pm Advance Directives No March 31 10:42am Living Will Yes April 18, 2023 1:26pm Power of Yeast Pumper Yes April 18 1:26pm Advance Directive Response Recorded Date/ Time Advance Directives No March 31 10:42am Living Will Yes April 18, 2023 1:26pm Power of Yeast Pumper Yes April 18 1:26pm Advance Directive Response Recorded Date/ Time Advance Directives No March 31 10:42am Summary Purpose Additional Source Comments Goals (unrecognized section and content) Goals may be documented in a n alternate sectionGoals may be documented in an alternate sectionGoals may be documented in an alternate sectionGoals may be documented in an alternate sectionGoals may be documented in an alternate sectionGoals may be documented in an alternate sectionGoals may be documented in an alternate sectionGoals may be documented in an alternate section No data available for this sectionGoals may be documented in an alternate sectionGoals may be documented in an alternate sectionGoals may be documented in an alternate sectionGoals may be documented in an alternate sectionGoals may be documented in an alternate sectionGoals may be documented in an alternate sectionGoals may be documented in an alternate sectionGoals may be documented in an alternate sectionGoals may be documented in an alternate sectionGoals may be documented in an alternate sectionGoals may be documented in an alternate sectionGoals may be documented in an alternate sectionGoals may be documented in an alternate sectionGoals may be documented in an alternate sectionGoals may be documented in an alternate sectionGoals may be documented in an alternate section Source Comments (unrecognize d section and content) In the event this informatio n is protected by the Federal Confidentiality of Alcohol and Drug Abuse Patient Records regulations: The Federal rules restrict any use of the information to criminally investigate or prosecute any alcohol or drug abuse patient.[facility] HealthIn the event this information is protected by the Federal Confidentiality of Alcohol and Drug Abuse Patient Records regulations: The Federal rules restrict any use of the information to criminally investigate or prosecute any alcohol or drug abuse patient.[facility] Teams (unrecognized sec tion and content) Record Searcher Relationship Specialty Start Date End Date Price Herndon Chi (Historical) [place] [address] PCP - General 04/26/07 Team Status: Active Member Role Status Dates Dr. Price Herndon MD Family Provider Active Dr. Price Herndon MD Primary Care Provider Active Team Status: Inactive Member Role Status Dates Dr. Price Herndon MD Primary Care Provider, Referring Provider Active Dr. Burton Quinn DO Attending Provider Active Team Status: Inactive Member Role Status Dates Dr. Price Herndon MD Primary Care Provider Active Dr. Saul Brush MD Attending Provider Active Team Status: Inactive Member Role Status Dates Dr. Price Herndon MD Primary Care Provider, Attending Provider Active Team Status: Active Member Role Status Dates Dr. Price Herndon MD Primary Care Provi mitul, Attending Provider, Referring Provider Active Team Status: Inactive Member Role Status Dates Dr. Price Herndon MD Primary Care Provider Active Dr. Itz Greenberg DO Emergency Provider Active Team Status: Inactive Member Role Status Dates Dr. Price Herndon MD Primary Care Provider, Referring Provider Active Dr. Saul Brush MD Attending Provider Active Team Status: Inactive Member Role Status Dates Dr. Price Herndon MD Primary Care Provider, Referring Provider Active Kenzie Iraheta PA, PA Attending Provider Active Team Status: Active Member Role Status Dates Dr. Price Herndon MD Primary Care Provider Active Dr. Saul Brush MD Attending Provider, Referring Pro vider Active Team Status: Inactive Member Role Status Dates Dr. Price Herndon MD Primary Care Provider Active Dr. Itz Greenberg DO Attending Provider, Emergency P marley Active Team Status: Inactive Member Role Status Dates Dr. Price Herndon MD Primary Care Provider Active Dr. Saul rBush MD Attending Provider, Referring Pro vider Active Team Status: Active Member Role Status Dates Dr. Price Herndon MD Primary Care Provider Active Dr. Burton Quinn DO Attending Provider, Referring Provider Active Team Status: Inactive Member Role Status Dates Dr. Price Herndon MD Primary Care Provi mitul, Attending Provider, Referring Provider Active Team Status: Inactive Member Role Status Dates Dr. Price Herndon MD Primary Care Provider Active Dr. Burton Quinn DO Attending Provider, Referring Provider Active Team Status: Active Member Role Status Dates Dr. Price Herndon MD Primary Care Provider Active Dr. Burton Quinn DO Admit Provider, Attending Provider, Referring Provider, Other Provider Active Team Status: Inactive Member Role Status Dates Dr. Price Herndon MD Primary Care Provider Active Dr. Burton Quinn DO Admit Provider, Attending Provider, Referring Provider Active Team Status: Active Member Role Status Dates Dr. Price Herndon MD Primary Care Provider Active Dr. Burton Quinn DO Admit Provider, Referring Provider, Other Provider Active Naomie POOLE, PA Attending Provider Active Team Status: Active Member Role Status Dates Dr. Price Herndon MD Primary Care Provider Active Dr. Itz Park MD Attending Provider Active Team Status: Active Member Role Status Dates Dr. Price Herndon MD Primary Care Provider Active Dr. Itz Park MD Attending Provider Active Dr. Burton Quinn DO Referring Provider Active Team Status: Inactive Member Role Status Dates Dr. Price Herndon MD Primary Care Provider Active Price MAJOR MD Attending Provider Active Team Status: Active Member Role Status Dates Dr. Price Herndon MD Primary Care Provider Active Team Status: Inactive Member Role Status Dates Dr. Price Herndon MD Primary Care Provider Active Start: October 24, 2024 End: October 24, 2024 Dr. Saul Brush MD Attending Provider Active S tart: October 24, 2024 End: October 24, 2024 Dr. Saul Brush MD Referring Provider Active S tart: October 24, 2024 End: October 24, 2024 Team Status: Inactive Member Role Status Dates Dr. Price Herndon MD Primary Care Provider Active Start: November 23, 2024 End: November 23, 2024 Dr. Saul Brush MD Attending Provider Active S tart: November 23, 2024 End: November 23, 2024 Dr. Saul Brush MD Referring Provider Active S tart: November 23, 2024 End: November 23, 2024 Team Status: Inactive Member Role Status Dates Dr. Price Herndon MD Primary Care Provider Active Start: December 23, 2024 End: December 23, 2024 Dr. Saul Brush MD Attending Provider Active S tart: December 23, 2024 End: December 23, 2024 Dr. Saul Brush MD Referring Provider Active S tart: December 23, 2024 End: December 23, 2024 Team Status: Inactive Member Role Status Dates Dr. Price Herndon MD Primary Care Provider Active Start: January 22, 2025 End: January 22, 2025 Dr. Saul Brush MD Attending Provider Active S tart: January 22, 2025 End: January 22, 2025 Team Status: Inactive Member Role Status Dates Dr. Price Herndon MD Primary Care Provider Active Start: January 23, 2025 End: January 23, 2025 Dr. Price Herndon MD Attending Provider Active Start: January 23, 2025 End: January 23, 2025 Dr. Price Herndon MD Referring Provider Active Start: January 23, 2025 End: January 23, 2025 Team Status: Active Member Role Status Dates Dr. Price Herndon MD Primary Care Provider Active Start: January 29, 2025 Dr. Price Herndon MD Attending Provider Active Start: January 29, 2025 Team Status: Inactive Member Role Status Dates Dr. Price Herndon MD Primary Care Provider Active Start: January 22, 2025 End: January 22, 2025 Dr. Saul Brush MD Attending Provider Active S tart: January 22, 2025 End: January 22, 2025 Dr. Saul Brush MD Referring Provider Active S tart: January 22, 2025 End: January 22, 2025 Team Status: Inactive Member Role Status Dates Dr. Price Herndon MD Primary Care Provider Active Start: February 20, 2025 End: February 20, 2025 Dr. Price Herndon MD Attending Provider Active Start: February 20, 2025 End: February 20, 2025 Team Status: Inactive Member Role Status Dates Dr. Price Herndon MD Primary Care Provider Active Start: February 21, 2025 End: February 21, 2025 Dr. Saul Brush MD Attending Provider Active S tart: February 21, 2025 End: February 21, 2025 Team Status: Active Member Role Status Dates Dr. Price Herndon MD Primary Care Provider Active Start: March 17, 2025 Dr. Price Herndon MD Attending Provider Active Start: March 17, 2025 Dr. Price Herndon MD Referring Provider Active Start: March 17, 2025 Team Status: Inactive Member Role Status Dates Dr. Price Herndon MD Primary Care Provider Active Start: March 20, 2025 End: March 20, 2025 Dr. Price Herndon MD Referring Provider Active Start: March 20, 2025 End: March 20, 2025 Kenzie Iraheta PA, PA Attending Provider Active Start: March 20, 2025 End: March 20, 2025 Record Searcher Relationship Specialty Start Date End Date Price Herndon Chi (Historical) [place] [address] PCP - General 04/26/07 Team Status: Active Member Role/Relationship Status Dates Dr. Price Herndon MD Primary Care Provider Active Team Status: Inactive Member Role/Relationship Status Dates Dr. Price Herndon MD Primary Care Provider Active Start: November 23, 2024 End: November 23, 2024 Dr. Saul Brush MD Attending Provider Active S tart: November 23, 2024 End: November 23, 2024 Dr. Saul Brush MD Referring Provider Active S tart: November 23, 2024 End: November 23, 2024 Team Status: Inactive Member Role/Relationship Status Dates Dr. Price Herndon MD Primary Care Provider Active Start: December 23, 2024 End: December 23, 2024 Dr. Saul Brush MD Attending Provider Active S tart: December 23, 2024 End: December 23, 2024 Dr. Saul Brush MD Referring Provider Active S tart: December 23, 2024 End: December 23, 2024 Team Status: Inactive Member Role/Relationship Status Dates Dr. Price Herndon MD Primary Care Provider Active Start: January 22, 2025 End: January 22, 2025 Dr. Saul Brush MD Attending Provider Active S tart: January 22, 2025 End: January 22, 2025 Dr. Saul Brush MD Referring Provider Active S tart: January 22, 2025 End: January 22, 2025 Team Status: Inactive Member Role/Relationship Status Dates Dr. Price Herndon MD Primary Care Provider Active Start: January 23, 2025 End: January 23, 2025 Dr. Price Herndon MD Attending Provider Active Start: January 23, 2025 End: January 23, 2025 Dr. Price Herndon MD Referring Provider Active Start: January 23, 2025 End: January 23, 2025 Team Status: Inactive Member Role/Relationship Status Dates Dr. Price Herndon MD Primary Care Provider Active Start: February 20, 2025 End: February 20, 2025 Dr. Price Herndon MD Attending Provider Active Start: February 20, 2025 End: February 20, 2025 Team Status: Inactive Member Role/Relationship Status Dates Dr. Price Herndon MD Primary Care Provider Active Start: February 21, 2025 End: February 21, 2025 Dr. Saul Brush MD Attending Provider Active S tart: February 21, 2025 End: February 21, 2025 Team Status: Inactive Member Role/Relationship Status Dates Dr. Price Herndon MD Primary Care Provider Active Start: March 17, 2025 End: March 17, 2025 Dr. Price Herndon MD Attending Provider Active Start: March 17, 2025 End: March 17, 2025 Dr. Price Herndon MD Referring Provider Active Start: March 17, 2025 End: March 17, 2025 Team Status: Inactive Member Role/Relationship Status Dates Dr. Price Herndon MD Primary Care Provider Active Start: March 20, 2025 End: March 20, 2025 Dr. Price Herndon MD Referring Provider Active Start: March 20, 2025 End: March 20, 2025 Kenzie POOLE, PA Attending Provider Active Start: March 20, 2025 End: March 20, 2025 Team Status: Inactive Member Role/Relationship Status Dates Dr. Price Herndon MD Primary Care Provider Active Start: December 23, 2024 End: December 23, 2024 Dr. Saul Brush MD Attending Provider Active S tart: December 23, 2024 End: December 23, 2024 Dr. Salu Brush MD Referring Provider Active S tart: December 23, 2024 End: December 23, 2024 Team Status: Inactive Member Role/Relationship Status Dates Dr. Price Herndon MD Primary Care Provider Active Start: January 22, 2025 End: January 22, 2025 Dr. Saul Brush MD Attending Provider Active S tart: January 22, 2025 End: January 22, 2025 Dr. Saul Brush MD Referring Provider Active S tart: January 22, 2025 End: January 22, 2025 Team Status: Inactive Member Role/Relationship Status Dates Dr. Price Herndon MD Primary Care Provider Active Start: January 23, 2025 End: January 23, 2025 Dr. Price Herndon MD Attending Provider Active Start: January 23, 2025 End: January 23, 2025 Dr. Price Herndon MD Referring Provider Active Start: January 23, 2025 End: January 23, 2025 Team Status: Inactive Member Role/Relationship Status Dates Dr. Price Herndon MD Primary Care Provider Active Start: February 20, 2025 End: February 20, 2025 Dr. Price Herndon MD Attending Provider Active Start: February 20, 2025 End: February 20, 2025 Team Status: Inactive Member Role/Relationship Status Dates Dr. Price Herndon MD Primary Care Provider Active Start: February 21, 2025 End: February 21, 2025 Dr. Saul Brush MD Attending Provider Active S tart: February 21, 2025 End: February 21, 2025 Dr. Saul Brush MD Referring Provider Active S tart: February 21, 2025 End: February 21, 2025 Team Status: Inactive Member Role/Relationship Status Dates Dr. Price Herndon MD Primary Care Provider Active Start: March 17, 2025 End: March 17, 2025 Dr. Price Herndon MD Attending Provider Active Start: March 17, 2025 End: March 17, 2025 Dr. Price Herndon MD Referring Provider Active Start: March 17, 2025 End: March 17, 2025 Team Status: Inactive Member Role/Relationship Status Dates Dr. Price Herndon MD Primary Care Provider Active Start: March 20, 2025 End: March 20, 2025 Dr. Price Herndon MD Referring Provider Active Start: March 20, 2025 End: March 20, 2025 Kenzie Iraheta PA, PA Attending Provider Active Start: March 20, 2025 End: March 20, 2025 Team Status: Inactive Member Role/Relationship Status Dates Dr. Price Herndon MD Primary Care Provider Active Start: March 23, 2025 End: March 23, 2025 Dr. Saul Brush MD Attending Provider Active S tart: March 23, 2025 End: March 23, 2025 Team Status: Inactive Member Role/Relationship Status Dates Dr. Price Herndon MD Primary Care Provider Active Start: April 07, 2025 End: April 07, 2025 Dr. Price Herndon MD Referring Provider Active Start: April 07, 2025 End: April 07, 2025 Dr. Sushil Stafford MD Attending Provider Active Start: April 07, 2025 End: April 07, 2025 Team Status: Inactive Member Role/Relationship Status Dates Dr. Price Herndon MD Primary Care Provider Active Start: January 22, 2025 End: January 22, 2025 Dr. Saul Brush MD Attending Provider Active S tart: January 22, 2025 End: January 22, 2025 Dr. Saul Brush MD Referring Provider Active S tart: January 22, 2025 End: January 22, 2025 Team Status: Inactive Member Role/Relationship Status Dates Dr. Price Herndon MD Primary Care Provider Active Start: January 23, 2025 End: January 23, 2025 Dr. Price Herndon MD Attending Provider Active Start: January 23, 2025 End: January 23, 2025 Dr. Price Herndon MD Referring Provider Active Start: January 23, 2025 End: January 23, 2025 Team Status: Inactive Member Role/Relationship Status Dates Dr. Price Herndon MD Primary Care Provider Active Start: February 20, 2025 End: February 20, 2025 Dr. Price Herndon MD Attending Provider Active Start: February 20, 2025 End: February 20, 2025 Team Status: Inactive Member Role/Relationship Status Dates Dr. Price Herndon MD Primary Care Provider Active Start: February 21, 2025 End: February 21, 2025 Dr. Saul Brush MD Attending Provider Active S tart: February 21, 2025 End: February 21, 2025 Dr. Saul Brush MD Referring Provider Active S tart: February 21, 2025 End: February 21, 2025 Team Status: Inactive Member Role/Relationship Status Dates Dr. Price Herndon MD Primary Care Provider Active Start: March 17, 2025 End: March 17, 2025 Dr. Price Herndon MD Attending Provider Active Start: March 17, 2025 End: March 17, 2025 Dr. Price Herndon MD Referring Provider Active Start: March 17, 2025 End: March 17, 2025 Team Status: Inactive Member Role/Relationship Status Dates Dr. Price Herndon MD Primary Care Provider Active Start: March 20, 2025 End: March 20, 2025 Dr. Price Herndon MD Referring Provider Active Start: March 20, 2025 End: March 20, 2025 Kenzie Iraheta PA, PA Attending Provider Active Start: March 20, 2025 End: March 20, 2025 Team Status: Inactive Member Role/Relationship Status Dates Dr. Price Herndon MD Primary Care Provider Active Start: March 23, 2025 End: March 23, 2025 Dr. Saul Brush MD Attending Provider Active S tart: March 23, 2025 End: March 23, 2025 Dr. Saul Brush MD Referring Provider Active S tart: March 23, 2025 End: March 23, 2025 Team Status: Inactive Member Role/Relationship Status Dates Dr. Price Herndon MD Primary Care Provider Active Start: April 07, 2025 End: April 07, 2025 Dr. Price Herndon MD Referring Provider Active Start: April 07, 2025 End: April 07, 2025 Dr. Sushil Stafford MD Attending Provider Active Start: April 07, 2025 End: April 07, 2025 Team Status: Inactive Member Role/Relationship Status Dates Dr. Price Herndon MD Primary Care Provider Active Start: April 23, 2025 End: April 23, 2025 Dr. Price Herndon MD Referring Provider Active Start: April 23, 2025 End: April 23, 2025 Dr. Sushil Stafford MD Attending Provider Active Start: April 23, 2025 End: April 23, 2025 Team Status: Active Member Role/Relationship Status Dates Dr. Price Herndon MD Primary Care Provider Active Start: April 24, 2025 Dr. Sushil Stafford MD Attending Provider Active Start: April 24, 2025 Dr. Sushil Stafford MD Referring Provider Active Start: April 24, 2025 Team Status: Inactive Member Role/Relationship Status Dates Dr. Price Herndon MD Primary Care Provider Active Start: May 01, 2025 End: May 01, 2025 Dr. Price Herndon MD Referring Provider Active Start: May 01, 2025 End: May 01, 2025 Dr. Sushil Stafford MD Attending Provider Active Start: May 01, 2025 End: May 01, 2025 Team Status: Inactive Member Role/Relationship Status Dates Dr. Price Herndon MD Primary Care Provider Active Start: April 24, 2025 End: April 24, 2025 Dr. Sushil Stafford MD Attending Provider Active Start: April 24, 2025 End: April 24, 2025 Dr. Sushil Stafford MD Referring Provider Active Start: April 24, 2025 End: April 24, 2025 Team Status: Inactive Member Role/Relationship Status Dates Dr. Price Herndon MD Primary Care Provider Active Start: April 22, 2025 End: April 22, 2025 Dr. Saul Brush MD Attending Provider Active S tart: April 22, 2025 End: April 22, 2025 Team Status: Inactive Member Role/Relationship Status Dates Dr. Price Herndon MD Primary Care Provider Active Start: April 23, 2025 End: April 23, 2025 Dr. Price Herndon MD Referring Provider Active Start: April 23, 2025 End: April 23, 2025 Dr. Sushil Stafford MD Attending Provider Active Start: April 23, 2025 End: April 23, 2025 Team Status: Inactive Member Role/Relationship Status Dates Dr. Price Herndon MD Primary Care Provider Active Start: April 24, 2025 End: April 24, 2025 Dr. Sushil Stafford MD Attending Provider Active Start: April 24, 2025 End: April 24, 2025 Dr. Sushil Stafford MD Referring Provider Active Start: April 24, 2025 End: April 24, 2025 Team Status: Inactive Member Role/Relationship Status Dates Dr. Price Herndon MD Primary Care Provider Active Start: May 01, 2025 End: May 01, 2025 Dr. Price Herndon MD Referring Provider Active Start: May 01, 2025 End: May 01, 2025 Dr. Sushil Stafford MD Attending Provider Active Start: May 01, 2025 End: May 01, 2025 Team Status: Inactive Member Role/Relationship Status Dates Dr. Price Herndon MD Primary Care Provider Active Start: May 09, 2025 End: May 09, 2025 Dr. Price Herndon MD Referring Provider Active Start: May 09, 2025 End: May 09, 2025 Dr. Sushil Stafford MD Attending Provider Active Start: May 09, 2025 End: May 09, 2025 Team Status: Inactive Member Role/Relationship Status Dates Dr. Price Herndon MD Primary Care Provider Active Start: February 20, 2025 End: February 20, 2025 Dr. Price Herndon MD Attending Provider Active Start: February 20, 2025 End: February 20, 2025 Team Status: Inactive Member Role/Relationship Status Dates Dr. Price Herndon MD Primary Care Provider Active Start: February 21, 2025 End: February 21, 2025 Dr. Saul Brush MD Attending Provider Active S tart: February 21, 2025 End: February 21, 2025 Dr. Saul Brush MD Referring Provider Active S tart: February 21, 2025 End: February 21, 2025 Team Status: Inactive Member Role/Relationship Status Dates Dr. Price Herndon MD Primary Care Provider Active Start: March 17, 2025 End: March 17, 2025 Dr. Price Herndon MD Attending Provider Active Start: March 17, 2025 End: March 17, 2025 Dr. Price Herndon MD Referring Provider Active Start: March 17, 2025 End: March 17, 2025 Team Status: Inactive Member Role/Relationship Status Dates Dr. Price Herndon MD Primary Care Provider Active Start: March 20, 2025 End: March 20, 2025 Dr. Price Herndon MD Referring Provider Active Start: March 20, 2025 End: March 20, 2025 Kenzie Iraheta PA, PA Attending Provider Active Start: March 20, 2025 End: March 20, 2025 Team Status: Inactive Member Role/Relationship Status Dates Dr. Price Herndon MD Primary Care Provider Active Start: March 23, 2025 End: March 23, 2025 Dr. Saul Brush MD Attending Provider Active S tart: March 23, 2025 End: March 23, 2025 Dr. Saul Brush MD Referring Provider Active S tart: March 23, 2025 End: March 23, 2025 Team Status: Inactive Member Role/Relationship Status Dates Dr. Price Herndon MD Primary Care Provider Active Start: April 07, 2025 End: April 07, 2025 Dr. Price Herndon MD Referring Provider Active Start: April 07, 2025 End: April 07, 2025 Dr. Sushil Stafford MD Attending Provider Active Start: April 07, 2025 End: April 07, 2025 Team Status: Inactive Member Role/Relationship Status Dates Dr. Price Herndon MD Primary Care Provider Active Start: April 22, 2025 End: April 22, 2025 Dr. Saul Brush MD Attending Provider Active S tart: April 22, 2025 End: April 22, 2025 Dr. Saul Brush MD Referring Provider Active S tart: April 22, 2025 End: April 22, 2025 Team Status: Inactive Member Role/Relationship Status Dates Dr. Price Herndon MD Primary Care Provider Active Start: April 23, 2025 End: April 23, 2025 Dr. Price Herndon MD Referring Provider Active Start: April 23, 2025 End: April 23, 2025 Dr. Sushil Stafford MD Attending Provider Active Start: April 23, 2025 End: April 23, 2025 Team Status: Inactive Member Role/Relationship Status Dates Dr. Price Herndon MD Primary Care Provider Active Start: April 24, 2025 End: April 24, 2025 Dr. Sushil Stafford MD Attending Provider Active Start: April 24, 2025 End: April 24, 2025 Dr. Sushil Stafford MD Referring Provider Active Start: April 24, 2025 End: April 24, 2025 Team Status: Inactive Member Role/Relationship Status Dates Dr. Price Herndon MD Primary Care Provider Active Start: May 01, 2025 End: May 01, 2025 Dr. Price Herndon MD Referring Provider Active Start: May 01, 2025 End: May 01, 2025 Dr. Sushil Stafford MD Attending Provider Active Start: May 01, 2025 End: May 01, 2025 Team Status: Inactive Member Role/Relationship Status Dates Dr. Price Herndon MD Primary Care Provider Active Start: May 09, 2025 End: May 09, 2025 Dr. Price Herndon MD Referring Provider Active Start: May 09, 2025 End: May 09, 2025 Dr. Sushil Stafford MD Attending Provider Active Start: May 09, 2025 End: May 09, 2025 Team Status: Inactive Member Role/Relationship Status Dates Dr. Price Herndon MD Primary Care Provider Active Start: May 22, 2025 End: May 22, 2025 Dr. Saul Brush MD Attending Provider Active S tart: May 22, 2025 End: May 22, 2025 Team Status: Active Member Role/Relationship Status Dates Dr. Price Herndon MD Primary care physician Active Team Status: Inactive Member Role/Relationship Status Dates Dr. Price Herndon MD Primary care physician Active Start: March 17, 2025 End: March 17, 2025 Dr. Price Herndon MD Attending physician Active Start: March 17, 2025 End: March 17, 2025 Dr. Price Herndon MD Referring Provider Active Start: March 17, 2025 End: March 17, 2025 Team Status: Inactive Member Role/Relationship Status Dates Dr. Price Herndon MD Primary care physician Active Start: March 20, 2025 End: March 20, 2025 Dr. Price Herndon MD Referring Provider Active Start: March 20, 2025 End: March 20, 2025 Kenzie Iraheta PA, PA Attending physician Active Start: March 20, 2025 End: March 20, 2025 Team Status: Inactive Member Role/Relationship Status Dates Dr. Price Herndon MD Primary care physician Active Start: March 23, 2025 End: March 23, 2025 Dr. Saul Brush MD Attending physician Active Start: March 23, 2025 End: March 23, 2025 Dr. Saul Brush MD Referring Provider Active S tart: March 23, 2025 End: March 23, 2025 Team Status: Inactive Member Role/Relationship Status Dates Dr. Price Herndon MD Primary care physician Active Start: April 07, 2025 End: April 07, 2025 Dr. Price Herndon MD Referring Provider Active Start: April 07, 2025 End: April 07, 2025 Dr. Sushil Stafford MD Attending physician Active Start: April 07, 2025 End: April 07, 2025 Team Status: Inactive Member Role/Relationship Status Dates Dr. Price Herndon MD Primary care physician Active Start: April 22, 2025 End: April 22, 2025 Dr. Saul Brush MD Attending physician Active Start: April 22, 2025 End: April 22, 2025 Dr. Saul Brush MD Referring Provider Active S tart: April 22, 2025 End: April 22, 2025 Team Status: Inactive Member Role/Relationship Status Dates Dr. Price Herndon MD Primary care physician Active Start: April 23, 2025 End: April 23, 2025 Dr. Sushil Stafford MD Attending physician Active Start: April 23, 2025 End: April 23, 2025 Dr. Sushil Stafford MD Referring Provider Active Start: April 23, 2025 End: April 23, 2025 Team Status: Inactive Member Role/Relationship Status Dates Dr. Price Herndon MD Primary care physician Active Start: April 24, 2025 End: April 24, 2025 Dr. Sushil Stafford MD Attending physician Active Start: April 24, 2025 End: April 24, 2025 Dr. Sushil Stafford MD Referring Provider Active Start: April 24, 2025 End: April 24, 2025 Team Status: Inactive Member Role/Relationship Status Dates Dr. Price Herndon MD Primary care physician Active Start: May 01, 2025 End: May 01, 2025 Dr. Price Herndon MD Referring Provider Active Start: May 01, 2025 End: May 01, 2025 Dr. Sushil Stafford MD Attending physician Active Start: May 01, 2025 End: May 01, 2025 Team Status: Inactive Member Role/Relationship Status Dates Dr. Price Herndon MD Primary care physician Active Start: May 09, 2025 End: May 09, 2025 Dr. Price Herndon MD Referring Provider Active Start: May 09, 2025 End: May 09, 2025 Dr. Sushil Stafford MD Attending physician Active Start: May 09, 2025 End: May 09, 2025 Team Status: Inactive Member Role/Relationship Status Dates Dr. Price Herndon MD Primary care physician Active Start: May 22, 2025 End: May 22, 2025 Dr. Saul Brush MD Attending physician Active Start: May 22, 2025 End: May 22, 2025 Dr. Saul Brush MD Referring Provider Active S tart: May 22, 2025 End: May 22, 2025 Team Status: Inactive Member Role/Relationship Status Dates Dr. Price Herndon MD Primary care physician Active Start: June 12, 2025 End: June 12, 2025 Dr. Price Herndon MD Attending physician Active Start: June 12, 2025 End: June 12, 2025 Dr. Price Herndon MD Referring Provider Active Start: June 12, 2025 End: June 12, 2025 Team Status: Active Member Role/Relationship Status Dates Dr. Vincenzo Lambert MD Attending physician Active Start: June 12, 2025 Dr. Price Herndon MD Referring Provider Active Start: June 12, 2025 Team Status: Active Member Role/Relationship Status Dates Dr. Price Herndon MD Primary care physician Active Start: June 21, 2025 Dr. Saul Brush MD Attending physician Active Start: June 21, 2025 Team Status: Inactive Member Role/Relationship Status Dates Dr. Price Herndon MD Primary care physician Active Start: June 21, 2025 End: June 21, 2025 Dr. Saul Brush MD Attending physician Active Start: June 21, 2025 End: June 21, 2025 (unrecognized sect ion and content) No Status Records FoundNo Status Records FoundNo Status Records FoundNo Status Records Found INFORMATION SOURCE (unrecogn ized section and content) DATE CREATED AUTHOR 09/04/2024 [facility] DATE CREATED AUTHOR AUTHOR'S ORGANIZ ATION 07/15/2025 [facility] DATE CREATED AUTHOR AUTHOR'S ORGANIZ ATION 07/26/2025 [facility] DATE CREATED AUTHOR AUTHOR'S ORGANIZ ATION 08/02/2025 [facility] Reason for Visit (unrecogniz ed section and content) Reason Comments NPH Referral/Dr. Jolly Herndon FOR RECORDS PERTAINING TO PATIENTS WHO ARE OR HAVE BEEN ENROLLED IN A CHEMICAL DEPENDENCY/SUBSTANCEABUSE PROGRAM, SOME INFORMATION MAY BE OMITTED. This clinical summary was aggregated from multiple sources. Caution should be exercised in using it in the provision of clinical care. This summary normalizes information from multiple sources, and as a consequence, information in this document may materially change the coding, format and clinical context of patient data. In addition, data may be omitted in some cases. CLINICAL DECISIONS SHOULD BE BASED ON THE PRIMARY CLINICAL RECORDS. [employer] provides no warranty or guarantee of the accuracy or completeness of information in this document.
--- OUTSIDE RECORDS SUMMARY | 2025-08-19 19:14 | XMS RPT_ITS | CCD ---
Author Organization [facility]iniSy[facility] Care Team Providers Care Drill Instructor Name Role Phone Dr. Price Herndon Chi Primary Care Provider [phone] Yanick, Dr. Price Viera Referring Provider Dr. Adolfo Law Attending Provider [phone] YanickPrice phan Chi ([facility]) Primary Care Provider Unavailable Dr. Price Herndon Chi Primary Care Provider Yanick, Dr. Price Viera Referring Provider Dr. Burton Quinn Attending Provider 1([facility]) [phone] Dr. Saul Brush Attending Provider 1([facility])-[phone] Saul Brush Referring Provider 1([facility])-[phone] ZULEMA Gallagher Attending Provider Dr. Burton Quinn Admit Provider [phone] Burton Quinn Referring Provider [phone] Dr. Burton Quinn Other Provider [phone] ZULEMA Elder Attending Provider [phone] Dr. Itz Park Attending Provider 1([facility])-[phone] Price Herndon Chi Primary Care Provider Yanick, Dr. Price Viera Referring Provider Dr. Saul Brush Attending Provider [phone] Burton Quinn Attending Provider [phone] Yanick, Dr. Price Viera Primary Care Provider Dr. Saul Brush Attending Provider 1([facility])-[phone] Saul Brush Referring Provider 1([facility])-[phone] KAREN SOMERS DO Attending Unavailabl e [...] Saul Attending Unavailable Gonsalo, Saul Referring Unavailable Yanick, Price Chi Referring Unavailable Yanick, Price Chi Primary Care Unavailable Yanick, Price Chi Attending Unavailable Yanick, Price Chi Primary Care Unavailable Yanick, Price Chi Attending Unavailable Gonsalo, Saul Referring Unavailable Yanick, Price Chi Primary Care Unavailable Gonsalo, Saul Attending Unavailable Gonsalo, Saul Referring Unavailable Gonsalo, Yukon Attending Unavailable Yanick, Price Chi Primary Care Unavailable Yanick, Price Chi Primary Care Unavailable Gonsalo, Saul Referring Unavailable Gonsalo, [place]on Attending Unavailable Siska, Sushil Attending Unavailable Yanick, Price Chi Referring Unavailable Yanick, Price Chi Primary Care Unavailable Gonsalo, Saul Referring Unavailable Yanick, Price Chi Primary Care Unavailable Gonsalo, Saul Attending Unavailable Yanick, Price Chi Referring Unavailable Siska, Sushil Attending Unavailable Yanick, Price Chi Primary Care Unavailable Gonsalo, Saul Referring Unavailable Yanick, Price Chi Primary Care Unavailable Gonsalo, [place] Attending Unavailable Yanick, Price Chi Primary Care Unavailable Gonsalo, [place] Referring Unavailable Gonsalo, Saul Attending Unavailable Yanick, Price Chi Primary Care Unavailable Gonsalo, Saul Referring Unavailable Gonsalo, [place] Attending Unavailable Gonsalo, Saul Referring Unavailable Gonsalo, Saul Attending Unavailable Yanick, Price Chi Primary Care Unavailable Yanick, Price Chi Primary Care Unavailable Gonsalo, [place] Referring Unavailable Gonsalo, Saul Attending Unavailable Gonsalo, [place] Attending Unavailable Yanick, Price Chi Primary Care Unavailable Gonsalo, [place] Referring Unavailable Siska, Sushil Referring Unavailable Siska, [...] (2 sources) Adrenergic Beta-Antagonists Allergy to substance [facility] Work Phone: (20 sources) amLODIPine Drug Allergy Edema,legs [facility] (20 sources) Angiotensin Converting Enzyme (Nahum) Inhibitors; Translations: [NAHUM Inhibitors] Propensity to adverse reactions Swelling [facility] (20 sources) cefTRIAXone; Translations: [ceftriaxone] Drug Allergy Anaphylactic shock [facility] (20 sources) cloNIDine Drug Allergy RAsh [facility] (20 sources) hydrALAZINE Drug Allergy Swelling- eyes, feet [facility] (20 sources) Iodine; Translations: [IODINE] Drug Allergy [facility] (20 sources) valsartan Drug Allergy [facility] (20 sources) Iodinated Contrast Media; Translations: [Iodinated Contrast Media] Allergy to substance [facility] (20 sources) Adrenergic Beta-Antagonists Allergy to substance [facility] (4 sources) Cephalosporins (Antibiotic); Translations: [CEPHALOSPORINS] Drug Allergy Anaphylaxis [facility] Work Phone: (4 sources) hydroCHLOROthiazide / valsartan; Translations: [VALSARTAN-HYDROCHLORO THIAZIDE] Drug Allergy 009 [facility] (4 sources) Ketorolac; Translations: [KETOROLAC TROMETHAMINE] Drug Allergy Anaphylaxis [facility] Work Phone: (4 sources) Metoprolol; Translations: [METOPROLOL SUCCINATE] Drug Allergy Rash [facility] Work Phone: (4 sources) Orphenadrine; Translations: [ORPHENADRINE] Drug Allergy Anaphylaxis [facility] Work Phone: (2 sources) unknown [Other] Propensity to adverse reactions [facility] (1 source) Contrast media; Translations: [iodinated radiocontrast agents] Drug allergy Eruption of skin (disorder) [facility] (12 sources) Ciprofloxacin Drug Allergy Anaphylaxis [facility] (1 source) OTHER; Translations: [OTHER] Propensity to adverse reactions (disorder) [facility] (1 source) Adrenergic Beta-Antagonists Drug allergy (disorder) [facility] (1 source) amLODIPine Drug Allergy [facility] (1 source) cefTRIAXone Drug Allergy [facility] (1 source) Ciprofloxacin Drug Allergy [facility] (1 source) cloNIDine Drug Allergy [facility] (1 source) hydrALAZINE Drug Allergy [facility] (1 source) Iodine Drug Allergy [facility] (1 source) valsartan Drug Allergy [facility] Repository Medications Current Medications Medication Drug Class(es) Dates Sig (Normalized) Sig (Original) acetaminophen 500 mg oral tablet (20 sources) Start: 04-19-2023 take 2 tablets by mouth every six hours as needed Start: 04-19-2023 take 1000 mg by mout h every six hours as needed Acetaminophen Active 1000 MG PO EVERY 6 HOURS NEEDED 100 April 19, 2023 12:00am [id number] 200 actuat albuterol 0.09 mg/actuat metered dose [...] tryptase. Fax results to Dr. Hurd at [phone] 1 Vial 08/30/2017 Active Start: 08-30-2017 COMPOUNDED PRE SCRIPTION Indications: Anaphylaxis, initial encounter If patient presents with allergic or anaphylactic reaction, draw a serum tryptase. Fax results to Dr. Hurd at [phone] 1 Vial 0 08/30/2017 Active Comment on above: If patient presents with allergic or anaphylactic reaction, draw a serum tryptase. Fax results to Dr. Hurd at [phone] 24 hr dilTIAZem hydrochloride 120 mg extended [...] 0 Refill(s) Start Date: 07/25/24 Status: Ordered [id number] 0.3 ml EPINEPHrine 1 mg/ml auto-injector (2 sources) alpha-Adrenergic Agonist, beta-Adrenergic Agonist, Catecholamine Start: 08-30-20 EPINEPHrine (EPIPEN) 0.3 mg/0.3 mL auto-injector Indications: Anaphylaxis, initial encounter Inject 0.3 mL intramuscularly as needed (for allergic reaction.Seek emergent medical care immediately after use.Disp:one 2-pack w/first aid trainer). 1 Each 1 08/30/2017 Active Comment on above: Inject 0.3 mL intram uscularly as needed (for allergic reaction.Seek emergent medical care immediately after use.Disp:one 2-pack w/first aid trainer). finasteride 5 mg oral tablet (13 [...] (20 sources) Start: 07-25-2024 Potassium Chlo ride (Ucf-Zbwc-Eqy M20) 20 mEq oral tablet, extended release [...] 17, 2017 12:00am August 27, 2018 11:25am Nlavuyrirsi-A5-Yz swellia Serr (15 sources) Start: 05-17-2017 End: 01-18-2018 take 1500 mg by mouth once daily Evwyikfaapk-V1-Bpj wellia Serr Discontinued 1500 MG PO DAILY May 17, 2017 6:19pm January 18, 2018 1:05pm Start: 05-17-2017 End: 01-18-2018 take 1500 mg by mouth once daily Odurbxmxczd-R3-Rhnihuoes Serr Discontinu ed 1500 MG PO DAILY May 16, 2017 11:00pm January 18, 2018 12:05pm Start: 05-17-2017 End: 01-18-2018 take 1500 mg by mouth once daily Odaddqqlnpu-J0-Akoopjwqi Serr Discontinu ed 1500 MG PO DAILY May 17, 2017 12:00am January 18, 2018 1:05pm Wymzlqquvmi-T0-Lbjjqapeo Serr 1 EACH tablet (16 sources) Start: 05-17-2017 End: 01-18-2018 take 1 tablet by mouth once daily Xwetdimgzrt-H4-Rpixtydkf Serr 1 EACH tablet Discontinued 1500 mg [...] Coronary atherosclerosis; Translations: [Atherosclerotic heart disease of [place] coronary artery without angina pectoris] Chronic Disorders [...] sources) H/O: high risk medication; Translations: [Other longterm (current) drug therapy] 12-04-2017 Episodic Other aftercare [...] Test Name Value Interpretation Reference Range Facility [facility] 07-31-2025 CNOV Office Visit (SPSLUH ) ADOLFO RIVERA ([id number]) 1945 M Date Time Provider Department 07/31/25 4:00 PM PAULETTE JEROME [facility] During your visit today, we recorded the following information about you: Weight Height 119.3 kg 1.74 m Paulette Jerome MD 07/31/2025 8:16 PM Signed SPINE SURGERY NEW PATIENT PCP: Price Viera (Historical) Yanick (Inactive) REFERRING PROVIDER: John Tolliver [address] [place] [phone] Subjective CHIEF COMPLAINT: Right sided LBP, difficulty [...] emergent medical care immediately after use.Disp:one 2-pack w/first aid trainer). MULTIVITAMIN TAB Take one(1) tablet daily. isosorbide mononitrate(IMDUR 30 MG 24 HR TAB) Take one(1) tablet daily. penicillin V potassium (VEETIDS) 250 mg/5 mL suspension Bring to office for oral graded dose challenge (Patient not taking: Reported on 07/31/2025) COMPOUNDED PRESCRIPTION If patient presents with allergic or anaphylactic reaction, draw a serum tryptase. Fax results to Dr. Hurd at [phone] albuterol HFA (PROVENTIL HFA, VENTOLIN HFA) 90 [...] person, place (more content not included)... Normal [facility] CBC W/Diff, Automatedon 10-3 0-2024 Absolute Lymph 1.09 X10 3/uL Normal 0.83-4.51 [facility] Comment on above: Performed By: #### L 500.4050, L501.9520, L100.0100, L506.1001 #### [facility] [address] [place], [address] Absolute Neut 3.2 X10 3/uL Normal 2.0-7.7 [facility] Comment on above: Performed By: #### L 500.4050, L501.9520, L100.0100, L506.1001 #### [facility] [address] [place], [address] Basophils/100 WBC (Bld) 0.6 % Normal 0-1 [facility] Comment on above: Performed By: #### L 500.4050, L501.9520, L100.0100, L506.1001 #### [facility] [address] [place], [address] Eosinophils/100 WBC (Bld) 2.6 % Normal 0-5 [facility] Comment on above: Performed By: #### L 500.4050, L501.9520, L100.0100, L506.1001 #### [facility] [address] [place], [address] Erythrocyte distribution width (RBC) [Ratio] 13.9 % Normal 11.6-14.6 [facility] Comment on above: Performed By: #### L 500.4050, L501.9520, L100.0100, L506.1001 #### [facility] [address] [place], [address] Hematocrit (Bld) [Volume fraction] 38.2 % Low 40-54 [facility] Comment on above: Performed By: #### L 500.4050, L501.9520, L100.0100, L506.1001 #### [facility] [address] [place], [address] Hemoglobin (Bld) [Mass/Vol] 12.6 g/dL Low 13.0-16.5 [facility] Comment on above: Performed By: #### L 500.4050, L501.9520, L100.0100, L506.1001 #### [facility] [address] [place], [address] IG% 0.200 Normal 0.0-0.9 [facility] Comment on above: Result Comment: IG% - Immature Granulocytes (promyelocytes, myelocytes and metamyelocytes) > 1% indicates that a LEFT SHIFT is Present. Performed By: #### L 500.4050, L501.9520, L100.0100, L506.1001 #### [facility] [address] [place], [address] Lymphocytes/100 WBC (Bld) 22.2 % Normal 19-41 [facility] Comment on above: Performed By: #### L 500.4050, L501.9520, L100.0100, L506.1001 #### [facility] [address] [place], [address] MCH (RBC) [Entitic mass] 32.6 pg High 27.0-32.0 [facility] Comment on above: Performed By: #### L 500.4050, L501.9520, L100.0100, L506.1001 #### [facility] [address] [place], [address] MCHC (RBC) [Mass/Vol] 33.0 g/dL Normal 32-36 [facility] Comment on above: Performed By: #### L 500.4050, L501.9520, L100.0100, L506.1001 #### [facility] [address] [place], [address] MCV (RBC) [Entitic vol] 98.7 fL High 80-94 [facility] Comment on above: Performed By: #### L 500.4050, L501.9520, L100.0100, L506.1001 #### [facility] [address] [place], [address] Monocytes/100 WBC (Bld) 9.0 % Normal 0-10 [facility] Comment on above: Performed By: #### L 500.4050, L501.9520, L100.0100, L506.1001 #### [facility] [address] [place], [address] Neutrophils/100 WBC (Bld) 65.4 % Normal 47-70 [facility] Comment on above: Performed By: #### L 500.4050, L501.9520, L100.0100, L506.1001 #### [facility] [address] [place], [address] Nucleated RBC (Bld) [#/Vol] 0 10*3/uL Normal 0-5 [facility] Comment on above: Performed By: #### L 500.4050, L501.9520, L100.0100, L506.1001 #### [facility] [address] [place], [address] Platelet mean volume (Bld) [Entitic vol] 9.5 fL Normal 6.2-12.0 [facility] Comment on above: Performed By: #### L 500.4050, L501.9520, L100.0100, L506.1001 #### [facility] [address] [place], [address] Platelets (Bld) [#/Vol] 216 10*3/uL Normal 150-450 [facility] Comment on above: Performed By: #### L 500.4050, L501.9520, L100.0100, L506.1001 #### [facility] [address] [place], [address] RBC (Bld) [#/Vol] 3.87 10*6/uL Low 4.6-6.2 [facility] Comment on above: Performed By: #### L 500.4050, L501.9520, L100.0100, L506.1001 #### [facility] [address] [place], [address] RDW SD 51.1 fl High 35.1-43.9 [facility] Comment on above: Performed By: #### L 500.4050, L501.9520, L100.0100, L506.1001 #### [facility] [address] [place], [address] WBC (Bld) [#/Vol] 4.9 10*3/uL Normal 4.4-11.0 [facility] Comment on above: Performed By: #### L 500.4050, L501.9520, L100.0100, L506.1001 #### [facility] [address] [place], [address] [facility] 07-24-2025 Albumin [Mass/Vol] 3.8 g/dL Normal 3.4-4.8 [facility] Comment on above: Performed By: #### L 500.4050, L501.9520, L100.0100, L506.1001 #### [facility] [address] [place], [address] Albumin/Globulin [Mass ratio] 4.4 {ratio} High 0.9-2.4 [facility] Comment on above: Performed By: #### L 500.4050, L501.9520, L100.0100, L506.1001 #### [facility] [address] [place], [address] ALK PHOS 72 U/L Normal 40-129 [facility] Comment on above: Performed By: #### L 500.4050, L501.9520, L100.0100, L506.1001 #### [facility] [address] [place], [address] ALT [Catalytic activity/Vol] 22 U/L Normal <=46 [facility] Comment on above: Performed By: #### L 500.4050, L501.9520, L100.0100, L506.1001 #### [facility] [address] [place], [address] AST [Catalytic activity/Vol] 23 U/L Normal <=37 [facility] Comment on above: Performed By: #### L 500.4050, L501.9520, L100.0100, L506.1001 #### [facility] [address] [place], [address] Bilirubin [Mass/Vol] 0.62 mg/dL Normal 0.00-1.30 [facility] Comment on above: Performed By: #### L 500.4050, L501.9520, L100.0100, L506.1001 #### [facility] [address] [place], [address] BUN/CRE 17.0 RATIO Normal 10-20 [facility] Comment on above: Performed By: #### L 500.4050, L501.9520, L100.0100, L506.1001 #### [facility] [address] [place], [address] Calcium [Mass/Vol] 8.7 mg/dL Normal 7.6-11.0 [facility] Comment on above: Performed By: #### L 500.4050, L501.9520, L100.0100, L506.1001 #### [facility] [address] [place], [address] Chloride [Moles/Vol] 103 mmol/L Normal 98-108 [facility] Comment on above: Performed By: #### L 500.4050, L501.9520, L100.0100, L506.1001 #### [facility] [address] [place], [address] CO2 [Moles/Vol] 27.3 mmol/L Normal 21.0-32.0 [facility] Comment on above: Performed By: #### L 500.4050, L501.9520, L100.0100, L506.1001 #### [facility] [address] [place], [address] Creatinine [Mass/Vol] 0.90 mg/dL Normal 0.70-1.20 [facility] Comment on above: Performed By: #### L 500.4050, L501.9520, L100.0100, L506.1001 #### [facility] [address] [place], [address] GAP 8 Normal 5-15 [facility] Comment on above: Performed By: #### L 500.4050, L501.9520, L100.0100, L506.1001 #### [facility] [address] [place], [address] GFR/1.73 sq M.predicted among non-blacks MDRD (S/P/Bld) [Vol rate/Area] 86 mL/min/{1.73_m2} Normal >60 [facility] Comment on above: Result Comment: mL/m in/1.73m2 CKD-EPI Creatinine Equation (2020) Performed By: #### L 500.4050, L501.9520, L100.0100, L506.1001 #### [facility] [address] [place], [address] Globulin (S) [Mass/Vol] 0.9 g/dL Low 2.2-4.2 [facility] Comment on above: Performed By: #### L 500.4050, L501.9520, L100.0100, L506.1001 #### [facility] [address] [place], [address] Glucose [Mass/Vol] 93 mg/dL Normal 70-99 [facility] Comment on above: Performed By: #### L 500.4050, L501.9520, L100.0100, L506.1001 #### [facility] [address] [place], [address] Potassium [Moles/Vol] 4.4 mmol/L Normal 3.3-5.1 [facility] Comment on above: Performed By: #### L 500.4050, L501.9520, L100.0100, L506.1001 #### [facility] [address] [place], [address] Sodium [Moles/Vol] 138 mmol/L Normal 133-145 [facility] Comment on above: Performed By: #### L 500.4050, L501.9520, L100.0100, L506.1001 #### [facility] [address] [place], [address] T PROT 4.6 g/dL Low 5.9-8.4 [facility] Comment on above: Performed By: #### L 500.4050, L501.9520, L100.0100, L506.1001 #### [facility] [address] [place], [address] Urea nitrogen [Mass/Vol] 15 mg/dL Normal 4-19 [facility] Comment on above: Performed By: #### L 500.4050, L501.9520, L100.0100, L506.1001 #### [facility] [address] [place], [place], [address] Thyroid Stim Hormone (TSH)on 07-24-2025 TSH 1.410 uIU/mL Normal 0.300-4.200 [facility] Comment on above: Performed By: #### L 500.4050, L501.9520, L100.0100, L506.1001 #### [facility] [address] [place], [address] Vitamin D,25 Hydroxyon 07-24 Vitamin D 25-OH 27.3 ng/mL Low 30-100 [facility] Comment on above: Result Comment: Anju min D Status Deficiency: <20 ng/mL (50nmol/L) Insufficiency: 20-30 ng/mL (50-75 nmol/L) Sufficiency: 30-100 ng/mL (75-250 nmol/L) Toxicity: >100 ng/mL (>250 nmol/L) Performed By: #### L 500.4050, L501.9520, L100.0100, L506.1001 #### [facility] [address] [place], [place], [address] CNTHERAPYon 07-15-2025 CNTHERAPY OT/PT/Speech Visit (PTWS) ADOLFO RIVERA ([id number]) 1945 M Date Time Provider Department 07/15/25 9:00 AM GENEVA MOTLEY Date Time Provider Department Center 07/15/2025 9:00 AM [id number] MOTLEY Reason for Visit: PT Discharge [752] [...] tryptase. Fax results to Dr. Hurd at [phone] - albuterol HFA (PROVENTIL HFA, VENTOLIN HFA) 90 mcg/actuation inhaler Inhale 2 Puffs as instructed every 4 hours as needed (for cough, wheezing, chest tightness or shortness of breath. Use with spacer. ). - EPINEPHrine (EPIPEN) 0.3 mg/0.3 mL auto-injector Inject 0.3 mL intramuscularly as needed (for allergic reaction.Seek emergent medical care immediately after use.Disp:one 2-pack w/first aid trainer). - MULTIVITAMIN TAB Take one(1) tablet daily. - isosorbide mononitrate(IMDUR 30 MG 24 HR TAB) Take one(1) tablet daily. Normal [facility] AD[facility] ([id number]) 1945 M Date Time Provider Department 07/10/25 JOHN TOLLIVER NREUS2 During your visit today, we recorded the following information about you: Doron Olivarez RN 07/10/2025 11:16 AM Signed Attempted to contact patient to discuss results of recent MRI. No answer, left VM to call office. [facility] 07/10/2025 12:40 PM Signed Pt's returned the call. [phone] Doron Olivarez RN 07/10/2025 2:23 PM Signed [...] tryptase. Fax results to Dr. Hurd at [phone] - albuterol HFA (PROVENTIL HFA, VENTOLIN HFA) 90 mcg/actuation inhaler Inhale 2 Puffs as instructed every 4 hours as needed (for cough, wheezing, chest tightness or shortness of breath. Use with spacer. ). - EPINEPHrine (EPIPEN) 0.3 mg/0.3 mL auto-injector Inject 0.3 mL intramuscularly as needed (for allergic reaction.Seek emergent medical care immediately after use.Disp:one 2-pack w/first aid trainer). - MULTIVITAMIN TAB Take one(1) tablet [...] Encounter Status:Closed by FELLOWSDORON on 07/10/25 Normal [facility] [id number] 07-08-2025 [id number] HNO ID: [id number] Author: GENEVA MOLTEY PT Service: ? Author Type: Physical Therapist Type: [id number] Filed: 07/08/2025 12:27 Note Text: [facility] Physical Therapy Plan of Care Certification Patient Name: Adolfo Rivera : 1945 [facility] #: [id number] Date: 07/08/2025 To: Marvin Bliss MD From [...] 10 repetitions to reflect decreased fall risk. [place] in home exercise program including cardiovascular exercise. [...] of Visits Planned: 6 Planned Treatment Interventions: Self-nursing home management (86169), Gait Training (03827), Therapeutic activities (60511), Manual therapy (86155), Neuromuscular re-education (06668), Therapeutic exercise (08757) PLAN FOR NEXT VISIT: assess pt. ability [...] reviewed the treatment plan for Adolfo Rivera, [facility]# [id number] for the period of 07/08/25 -- 08/19/25, established on 07/08/2025. Signature certifies the need for therapy services. Normal [facility] CNTHERAPYon 07-08-2025 CNTHERAPY OT/PT/Speech Visit (PTWS) ADOLFO RIVERA ([id number]) 1945 M Date Time Provider Department 07/08/25 12:00 PM GENEVA MOTLEY PTWS Date Time Provider Department [place] 07/08/2025 12:00 PM [id number]-SGENEVA MOTLEY PTWS Diana Langford Reason for Visit: [...] tryptase. Fax results to Dr. Hurd at [phone] - albuterol HFA (PROVENTIL HFA, VENTOLIN HFA) 90 mcg/actuation inhaler Inhale 2 Puffs as instructed every 4 hours as needed (for cough, wheezing, chest tightness or shortness of breath. Use with spacer. ). - EPINEPHrine (EPIPEN) 0.3 mg/0.3 mL auto-injector Inject 0.3 mL intramuscularly as needed (for allergic reaction.Seek emergent medical care immediately after use.Disp:one 2-pack w/first aid trainer). - MULTIVITAMIN TAB Take one(1) tablet daily. - isosorbide mononitrate(IMDUR 30 MG 24 HR TAB) Take one(1) tablet daily. Normal [facility] CBC W Auto Differential pane l (Bld)on 07-07-2025 Basophils (Bld) [#/Vol] 0.03 10*3/uL Normal <0.11 [facility] Comment on above: Order Comment: Speci men Type: BLOOD SPECIMENOrdering Facility: [facility] Address: [address] [place] [address] Performed By: #### 5 7021-8 ####[facility] LABIA [id number] [place] [address] [place] Basophils/100 WBC (Bld) 0.7 % Normal C [facility] Comment on above: Order Comment: Speci men Type: BLOOD SPECIMENOrdering Facility: [facility] Address: [address] [place] [address] Performed By: #### 5 7021-8 ####[facility] LABIA [id number] [place] [address] [place] Differential cell count method Nom (Bld) Auto Normal [facility] Comment on above: Order Comment: Speci men Type: BLOOD SPECIMENOrdering Facility: [facility] Address: [address] [place] [address] Performed By: #### 5 7021-8 ####[facility] LABCLIA [id number] [address], [place] [address] [place] Eosinophils (Bld) [#/Vol] 0.10 10*3/uL Normal <0.46 [facility] Comment on above: Order Comment: Speci men Type: BLOOD SPECIMENOrdering Facility: [facility] Address: [address] [place] [address] Performed By: #### 5 7021-8 ####[facility] LABCLIA [id number] [address], [place] [address] [place] Eosinophils/100 WBC (Bld) 2.2 % Normal [facility] Comment on above: Order Comment: Speci men Type: BLOOD SPECIMENOrdering Facility: [facility] Address: [address] [place] [address] Performed By: #### 5 7021-8 ####[facility] LABCLIA [id number] [address], [facility] [place] Erythrocyte distribution width (RBC) [Ratio] 14.3 % Normal 11.5-15.0 [facility] Comment on above: Order Comment: Speci men Type: BLOOD SPECIMENOrdering Facility: [facility] Address: [address] [place] [address] Performed By: #### 5 7021-8 ####[facility] LABCLIA [id number] [address], [facility] [place] Hematocrit (Bld) [Volume fraction] 40.1 % Normal 39.0-51.0 [facility] Comment on above: Order Comment: Speci men Type: BLOOD SPECIMENOrdering Facility: [facility] Address: [address] [place] [address] Performed By: #### 5 7021-8 ####[facility] LABCLIA [id number] [address] [place] [address] [place] Hemoglobin (Bld) [Mass/Vol] 12.7 g/dL Low 13.0-17.0 [facility] Comment on above: Order Comment: Speci men Type: BLOOD SPECIMENOrdering Facility: [facility] Address: [address] [place] [address] Performed By: #### 5 7021-8 ####[facility] LABCLIA [id number] [place] [address] [place] Immature granulocytes (Bld) [#/Vol] 10*3/uL Normal <0.10 [facility] Comment on above: Order Comment: Speci men Type: BLOOD SPECIMENOrdering Facility: [facility] Address: [address] [place] [address] Performed By: #### 5 7021-8 ####[facility] LABCLIA [id number] [place] [address] [place] Immature granulocytes/100 WBC (Bld) 0.2 % Normal [facility] Comment on above: Order Comment: Speci men Type: BLOOD SPECIMENOrdering Facility: [facility] Address: [address] [place] [address] Performed By: #### 5 7021-8 ####[facility] LABCLIA [id number] [place] [address] [place] Lymphocytes (Bld) [#/Vol] 1.04 10*3/uL Normal 1.00-4.00 [facility] Comment on above: Order Comment: Speci men Type: BLOOD SPECIMENOrdering Facility: [facility] Address: [address] [place] [address] Performed By: #### 5 7021-8 ####[facility] LABCLIA [id number] [place] [address] [place] Lymphocytes/100 WBC (Bld) 22.6 % Normal [facility] Comment on above: Order Comment: Speci men Type: BLOOD SPECIMENOrdering Facility: [facility] Address: [address] [place] [address] Performed By: #### 5 7021-8 ####[facility] LABIA [id number] [place] [address] [place] MCH (RBC) [Entitic mass] 32.7 pg Normal 26.0-34.0 [facility] Comment on above: Order Comment: Speci men Type: BLOOD SPECIMENOrdering Facility: [facility] Address: [address] [place] [address] Performed By: #### 5 7021-8 ####[facility] LABIA [id number] [place] [address] [place] MCHC (RBC) [Mass/Vol] 31.7 g/dL Normal 30.5-36.0 [facility] Comment on above: Order Comment: Speci men Type: BLOOD SPECIMENOrdering Facility: [facility] Address: [address] [place] [address] Performed By: #### 5 7021-8 ####[facility] LABIA [id number] [place] [address] [place] MCV (RBC) [Entitic vol] 103.4 fL High 80.0-100.0 C [facility] Comment on above: Order Comment: Speci men Type: BLOOD SPECIMENOrdering Facility: [facility] Address: [address] [place] [address] Performed By: #### 5 7021-8 ####[facility] LABIA [id number] [place] [address] [place] Monocytes (Bld) [#/Vol] 0.41 10*3/uL Normal <0.87 [facility] Comment on above: Order Comment: Speci men Type: BLOOD SPECIMENOrdering Facility: [facility] Address: [address] [place] [address] Performed By: #### 5 7021-8 ####[facility] LABCLIA [id number] [place] [id number] [place] Monocytes/100 WBC (Bld) 8.9 % Normal [facility] Comment on above: Order Comment: Speci men Type: BLOOD SPECIMENOrdering Facility: [facility] Address: [address] [place] [address] Performed By: #### 5 7021-8 ####[facility] LABCLIA [id number] [place] [address] [place] Neutrophils (Bld) [#/Vol] 3.01 10*3/uL Normal 1.45-7.50 [facility] Comment on above: Order Comment: Speci men Type: BLOOD SPECIMENOrdering Facility: [facility] Address: [address] [place] [address] Performed By: #### 5 7021-8 ####[facility] LABIA [id number] [place] [address] [place] Neutrophils/100 WBC (Bld) 65.4 % Normal [facility] Comment on above: Order Comment: Speci men Type: BLOOD SPECIMENOrdering Facility: [facility] Address: [address] [place] [address] Performed By: #### 5 7021-8 ####[facility] LABIA [id number] [place] [address] [place] Nucleated RBC (Bld) [#/Vol] 10*3/uL Normal <0.01 [facility] Comment on above: Order Comment: Speci men Type: BLOOD SPECIMENOrdering Facility: [facility] Address: [address] [place] [address] Performed By: #### 5 7021-8 ####[facility] LABCLIA [id number] [place] [address] [place] Nucleated RBC/100 WBC (Bld) [Ratio] 0.0 /100 WBC Normal [facility] Comment on above: Order Comment: Speci men Type: BLOOD SPECIMENOrdering Facility: [facility] Address: [address] [place] [address] Performed By: #### 5 7021-8 ####[facility] LABIA [id number] [place] [address] [place] Platelet mean volume (Bld) [Entitic vol] 9.7 fL Normal 9.0-12.7 [facility] Comment on above: Order Comment: Speci men Type: BLOOD SPECIMENOrdering Facility: [facility] Address: [address] [place] [address] Performed By: #### 5 7021-8 ####[facility] LABIA [id number] [place] [address] [place] Platelets (Bld) [#/Vol] 233 10*3/uL Normal 150-400 [facility] Comment on above: Order Comment: Speci men Type: BLOOD SPECIMENOrdering Facility: [facility] Address: [address] [place] [address] Performed By: #### 5 7021-8 ####[facility] LABIA [id number] [place] [address] [place] RBC (Bld) [#/Vol] 3.88 10*6/uL Low 4.20-6.00 [facility] Comment on above: Order Comment: Speci men Type: BLOOD SPECIMENOrdering Facility: [facility] Address: [address] [place] [address] Performed By: #### 5 7021-8 ####[facility] LABIA [id number] [place] [address] [place] WBC (Bld) [#/Vol] 4.60 10*3/uL Normal 3.70-11.00 [facility] Comment on above: Order Comment: Speci men Type: BLOOD SPECIMENOrdering Facility: [facility] Address: [address] [place] [address] Performed By: #### 5 7021-8 ####[facility] LABRADHAIA [id number] [address] STATES OF [facility] CNOVon 07-07-2025 CNOV Office Visit (SPNMMN ) ADOLFO RIVERA ([id number]) 1945 M Date Time Provider Department 07/07/25 1:20 PM CORNELIUS WOODS [facility] During your visit today, we recorded the following information about you: Pulse Blood pressure Weight 65/minute 105/42 119.3 kg Cornelius Woods MD 07/08/2025 1:46 PM Signed [facility] STAFF PHYSICIAN NOTE OF PERSONAL [...] following reaction: Heart medication, given by Dr. Mladonado caused rash. Had to remove to be [...] which included preparing to see the patient, [id number] patient care, completing clinical documentation, obtaining and/or [...] provides taylor (more content not included)... Normal [facility] Comprehensive metabolic 2000 panelon 07-07-2025 Albumin [Mass/Vol] 3.9 g/dL Normal 3.9-4.9 [facility] Comment on above: Order Comment: Ignaciai men Type: BLOOD SPECIMENOrdering Facility: [facility] Address: [address] [place] [address] Performed By: #### 2 4323-8 ####[facility] LABCLIA [id number] [place] [address] [place] ALP [Catalytic activity/Vol] 75 U/L Normal 38-113 [facility] Comment on above: Order Comment: Speci men Type: BLOOD SPECIMENOrdering Facility: [facility] Address: [address] [place] [address] Performed By: #### 2 4323-8 ####[facility] LABCLIA [id number] [place] [address] [place] ALT [Catalytic activity/Vol] 22 U/L Normal 10-54 [facility] Comment on above: Order Comment: Ignaciai men Type: BLOOD SPECIMENOrdering Facility: [facility] Address: [address] [place] [address] Performed By: #### 2 4323-8 ####[facility] LABCLIA [id number] [facility] [address] [place] [address] [place] Anion gap [Moles/Vol] 9 mmol/L Normal 8-15 [facility] Comment on above: Order Comment: Speci men Type: BLOOD SPECIMENOrdering Facility: [facility] Address: [address] [place] [address] Performed By: #### 2 4323-8 ####[facility] LABCLIA [id number] [address] [address] [place] AST [Catalytic activity/Vol] 24 U/L Normal 14-40 [facility] Comment on above: Order Comment: Speci men Type: BLOOD SPECIMENOrdering Facility: [facility] Address: [address] [place] [address] Performed By: #### 2 4323-8 ####[facility] LABCLIA [id number] [place] [id number] [place] Bilirubin [Mass/Vol] 0.4 mg/dL Normal 0.2-1.3 [facility] Comment on above: Order Comment: Speci men Type: BLOOD SPECIMENOrdering Facility: [facility] Address: [address] [place] [address] Performed By: #### 2 4323-8 ####[facility] LABCLIA [id number] [place] [id number] [place] Calcium [Mass/Vol] 9.2 mg/dL Normal 8.5-10.2 [facility] Comment on above: Order Comment: Speci men Type: BLOOD SPECIMENOrdering Facility: [facility] Address: [address] [place] [address] Performed By: #### 2 4323-8 ####[facility] LABCLIA [id number] [address] [address] [place] Chloride [Moles/Vol] 102 mmol/L Normal 98-107 [facility] Comment on above: Order Comment: Speci men Type: BLOOD SPECIMENOrdering Facility: [facility] Address: [address] [place] [address] Performed By: #### 2 4323-8 ####[facility] LABCLIA [id number] [place] [id number] [place] CO2 [Moles/Vol] 27 mmol/L Normal 22-30 [facility] Comment on above: Order Comment: Speci men Type: BLOOD SPECIMENOrdering Facility: [facility] Address: [address] [place] [address] Performed By: #### 2 4323-8 ####[facility] LABIA [id number] [place] [address] [place] Creatinine [Mass/Vol] 1.16 mg/dL Normal 0.73-1.22 [facility] Comment on above: Order Comment: Speci men Type: BLOOD SPECIMENOrdering Facility: [facility] Address: [address] [place] [address] Performed By: #### 2 4323-8 ####[facility] LABIA [id number] [place] [address] [place] eGFRcr SerPlBld CKD-EPI 2020 63 mL/min/1.73m??? Normal >=60 [facility] Comment on above: Order Comment: Speci men Type: BLOOD SPECIMENOrdering Facility: [facility] Address: [address] [place] [address] Result Comment: Jonelle mated Glomerular Filtration Rate [...] actual GFR. Performed By: #### 2 4323-8 ####[facility] LABCLIA [id number] [place] [address] [place] Glucose [Mass/Vol] 129 mg/dL High 74-99 [facility] Comment on above: Order Comment: Speci men Type: BLOOD SPECIMENOrdering Facility: [facility] Address: [address] [place] [address] Result Comment: The [place] Diabetes Association (ADA) provides guidance for cutoff [...] Standards of Medical Care in Diabetes 2016, [place] [employer]. Diabetes Care. 2016.39(Suppl 1). Performed By: #### 2 4323-8 ####[facility] LABCLIA [id number] [place] [address] [place] Potassium [Moles/Vol] 4.6 mmol/L Normal 3.7-5.1 [facility] Comment on above: Order Comment: Speci men Type: BLOOD SPECIMENOrdering Facility: [facility] Address: [address] [place] [address] Performed By: #### 2 4323-8 ####[facility] LABCLIA [id number] [place] [id number] [place] Protein [Mass/Vol] 6.1 g/dL Low 6.3-8.0 [facility] Comment on above: Order Comment: Speci men Type: BLOOD SPECIMENOrdering Facility: [facility] Address: [address] [place], [place] [address] Performed By: #### 2 4323-8 ####[facility] LABCLIA [id number] [place] [address] [place] Sodium [Moles/Vol] 138 mmol/L Normal 136-144 [facility] Comment on above: Order Comment: Speci men Type: BLOOD SPECIMENOrdering Facility: [facility] Address: [address] [place] [address] Performed By: #### 2 4323-8 ####[facility] LABCLIA [id number] [place] [address] [place] Urea nitrogen [Mass/Vol] 16 mg/dL Normal 9-24 [facility] Comment on above: Order Comment: Speci men Type: BLOOD SPECIMENOrdering Facility: [facility] Address: [address] [facility] [place] [address] Performed By: #### 2 4323-8 ####[facility] LABCLIA [id number] [place] [address] [place] MRI BRAIN WO IVCONon -10-2 025 MRI BRAIN WO IVCON * * *Final Report* * * DATE OF EXAM: Jul 04 2025 1:45PM [facility] 0294 - MRI BRAIN WO [...] ventricular system. CSF flow study as discussed. Inside Sales Territory Manager: PSCB Transcribe Date/Time: Jul 04 2025 2:33P Dictated by : JANINA ROQUE MD This examination was interpreted and the report reviewed and electronically signed by: JANINA ROQUE MD on Jul 04 2025 2:37PM EST [id number] Normal [facility] MRI LUMBAR SPINE WO IVCONon 07-04-2025 MRI LUMBAR SPINE WO IVCON * * *Final Report* * * DATE OF EXAM: Jul 04 2025 2:15PM [facility] 0303 - MRI LUMBAR SPINE [...] and assume there are 5 lumbar-type vertebrae. Inside Sales Territory Manager: MALICK Transcribe Date/Time: Jul 04 2025 2:37P Dictated by : JANINA ROQUE MD This examination was interpreted and the report reviewed and electronically signed by: JANINA ROQUE MD on Jul 04 2025 2:40PM EST [id number] Normal [facility] CNOVon 06-23-2025 CNOV Office Visit (NREUS2 ) RIVERAADOLFO JO ([id number]) 1945 M Date Time Provider Department 06/23/25 [...] tryptase. Fax results to Dr. Hurd at [phone] albuterol HFA (PROVENTIL HFA, VENTOLIN HFA) 90 mcg/actuation inhaler Inhale 2 Puffs as instructed every 4 hours as needed (for cough, wheezing, chest tightness or shortness of breath. Use with spacer. ). (Patient not taking: Reported on 06/23/2025) EPINEPHrine (EPIPEN) 0.3 mg/0.3 mL auto-injector Inject 0.3 mL intramuscularly as needed (for allergic reaction.Seek emergent medical care immediately after use.Disp:one 2-pack w/first aid trainer). MULTIVITAMIN TAB Take one(1) tablet daily. [...] CV: Denies history of chest pain, prior NM's, palpitations, heart failure, murmurs,, circulatory problems, leg [...] and str (more content not included)... Normal [facility] CNOV Office Visit (NREUS2 ) ADOLFO RIVERA ([id number]) 1945 M Date Time Provider Department 06/23/25 10:00 AM MARVIN BLISS NRANTONIAS2 During your visit today, we recorded the following information about you: Pulse Blood pressure Weight 88/minute 119/67 119.3 kg Marvin Bliss MD 06/23/2025 11:38 AM Signed [facility] - NEW PATIENT EVALUATION Recording using [employer] software for draft documentation of the visit was discussed with the patient/authorized sales representative business courses; all questions welcomed and answered. 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 - Brain MRI: Findings suggestive of hydrocephalus (extra CSF). - Lumbar spine MRI: Spinal stenosis. - Insertable cardiac exercise physiologist (loop recorder): No specific arrhythmia documented to [...] freezin (none) (more content not included)... Normal [facility] 06-23-2025 [facility] Telephone (NREUS2) ADOLFO RIVERA ([id number]) 1945 M Date Time Provider Department 06/23/25 [...] tryptase. Fax results to Dr. Hurd at [phone] - albuterol HFA (PROVENTIL HFA, VENTOLIN HFA) 90 mcg/actuation inhaler Inhale 2 Puffs as instructed every 4 hours as needed (for cough, wheezing, chest tightness or shortness of breath. Use with spacer. ). - EPINEPHrine (EPIPEN) 0.3 mg/0.3 mL auto-injector Inject 0.3 mL intramuscularly as needed (for allergic reaction.Seek emergent medical care immediately after use.Disp:one 2-pack w/first aid trainer). - MULTIVITAMIN TAB Take one(1) tablet daily. - isosorbide mononitrate(IMDUR 30 MG 24 HR TAB) Take one(1) tablet daily. Problem List As Of Date 06/23/2025 Noted Resolved SKIN DISORDER NOS [L98.9] 06/06/2007 Encounter Status:Closed by HERBERT MONTES DE OCA on 06/23/25 Normal [facility] Venous Duplex US, Unilateral on 06-12-2025 Venous Duplex US, Unilateral [facility] [address] [place] [address] Venous Duplex US, Unilateral 06/12/25 0958 MR#: [id number] Acct: [id number] Name: ADOLFO RIVERA Rep #: [id number] : 1945 79 From: Vincenzo Lambert MD [...] Date Dictated: 06/12/25957 Date Transcribed: 06/12/25 1307 Inside Sales Territory Manager: Signed Normal [facility] Venous duplex ultrasound rep ortOrdered By: Vincenzo Lambert on 06-12-2025 US Vein [facility] [address] [place] [address] Venous Duplex US, Unilateral 06/12/25957 MR#: [id number] Acct: [id number] Name: ADOLFO RIVERA Rep #:[id number] : [...] Physician: Price Herndon Chi Performed By: Maya Garevy RVT 06/12/25 1307 Date _ Vincenzo Lambert MD CC: Dr. Price Herndon MD ~ Date Dictated: 06/12/25957 Date Transcribed: 06/12/251306 Inside Sales Territory Manager: Signed [facility] Work Phone: Plastic Surgery Visit Report on 05-09-2025 Plastic Surgery Visit Report [facility] [place] [facility] Reconstructive Surgery [address], [address] [place] [address] OFFICE VISIT Date of Service: 05/09/25 MR#: [id number] Acct: [id number] Name: ADOLFO RIVERA Rep #: [id number] : 1945 Provider: Dr. Sushil Stafford MD Age/Sex: 79/M Location: [facility] Status: Signed Intake Vital Signs 04/07/25 [...] (Severe, Verified 05/09/25 10:36) RAsh valsartan (From Clixtrvan) Adverse Reaction (Severe, Verified 05/09/25 10:36) RAsh [...] 4 cm, right lateral elbow area (CPT 99463), with 6 mm margins around the clinically evident lesion 2) Intermediate closure, 4.3 cm, right lateral elbow (CPT 00120) MICROSCOPIC DIAGNOSIS A. 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 [facility] Medical History Implantable loop recorder present Wears hearing aid Wears partial dentures Arthritis Back pain Gastric reflux Non-smoker Shortness of breath on exertion History of pain when walking History of edema History of echocardiogram History of stress test Hypertension Cardiology follow-up encounter Syncope Pure hypercholesterolemia Essential hypertension Hiatal hernia Asthma Atherosclerotic heart disease of [place] coronary artery without angina pectoris Long-term use of high-risk medication Acute respiratory failure with hypoxia Nonsustained ventricular tachycardia PVC (premature ventricular contraction) PAC (premature atrial contraction) Obesity (BMI 30-39.9) Surgical History History of loop recorder Hx of colonosco (more content not included)... Normal [facility] Plastic Surgery Visit Report on 05-01-2025 Plastic Surgery Visit Report [facility] Plastic Reconstructive Surgery [address], [address] [place], [place] [address] OFFICE VISIT Date of Service: 05/01/25 MR#: [id number] Acct: [id number] Name: ADOLFO RIVERA Rep #: [id number] : 1945 Provider: Dr. Sushil Stafford MD Age/Sex: 79/M Location: [facility] Status: Signed Intake Vital Signs 04/07/25 [...] 4 cm, right lateral elbow area (CPT 28040), with 6 mm margins around the clinically evident lesion 2) Intermediate closure, 4.3 cm, right lateral elbow (CPT 18533) MICROSCOPIC DIAGNOSIS A. 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 [facility] Medical History Implantable loop recorder present Wears hearing aid Wears partial dentures Arthritis Back pain Gastric reflux Non-smoker Shortness of breath on exertion History of pain when walking History of edema History of echocardiogram History of stress test Hypertension Cardiology follow-up encounter Syncope Pure hypercholesterolemia Essential hypertension Hiatal hernia Asthma Atherosclerotic heart disease of [place] coronary artery without angina pectoris Long-term use of high-risk medication Acute respiratory failure with hypoxia Nonsustained ventricular tachycardia PVC (premature ventricular contraction) PAC (premature atrial contraction) Obesity (BMI 30-39.9) Surgical History History of loop recorder Hx of colonoscopy History of cataract extraction History of cholecystectomy History of carpal tunnel surgery Family History (more content not included)... Normal [facility] Surgical pathology reportOrd ered By: Zamzam Browne on 04-28-2025 Surgical pathology study [facility] Plastic Surgery Visit Report on 04-23-2025 Plastic Surgery Visit Report [facility] Plastic Reconstructive Surgery [address], [address] [place] [address] OFFICE VISIT Date of Service: 04/23/25 MR#: [id number] Acct: [id number] Name: ADOLFO RIVERA Rep #: [id number] : 1945 Provider: Dr. Sushil Stafford MD Age/Sex: 79/M Location: [facility] Status: Signed with Addenda ADDENDUM by Dr. [...] Hiatal hernia Asthma Atherosclerotic heart disease of [place] coronary artery without angina pectoris Long-term use [...] (more content not included)... Normal [facility] Surgery Specimen Level Cesilia 04-23-2025 Surgery Specimen Level IV Patient Age/Sex Location Account Attending Physician ADOLFO RIVERA 79/M [facility]SPEC [id number] Dr. Sushil Stafford MD Specimen: [id number] Received: 04/23/25 Status: BHANU Naylorclaire Num: [id number] Spec Type: Lesion Subm Dr: Dr. Sushil [...] a 2.2 x 2.1 x 0.5 cm agarwal-pink to white, raised, firm and centrally soft [...] is entirely submitted, sequentially, in 7 cassettes. [place] 04/24/2025 CPT:93648 Patient Age/Sex Location Account Attending Physician ADOLFO RIVERA 79/M [facility]SPEC [id number] Dr. Sushil Stafford MD Signed (signature on file) Dr. Zamzam Browne MD 04/28/25 1204 Normal [facility] Comment on above: Performed By: #### L 500.4050, L501.9520, L100.0100, L506.1001 #### [facility] Laboratory [address] [place], [place], [address] Plastic Surgery Visit Report on 04-07-2025 Plastic Surgery Visit Report [facility] Plastic Reconstructive Surgery [address], [address] [place] [address] OFFICE VISIT Date of Service: 04/07/25 MR#: [id number] Acct: [id number] Name: ADOLFO RIVERA Rep #: [id number] : 1945 Provider: Dr. Sushil Stafford MD Age/Sex: 79/M Location: [facility] Status: Signed Intake Vital Signs 3 03/20/25 [...] in the past year?: Yes (hit elbow) [facility] Medical History Implantable loop recorder present Wears hearing aid Wears partial dentures Arthritis Back pain Gastric reflux Non-smoker Shortness of breath on exertion History of pain when walking History of edema History of echocardiogram History of stress test Hypertension Cardiology follow-up encounter Syncope Pure hypercholesterolemia Essential hypertension Hiatal hernia Asthma Atherosclerotic heart disease of [place] coronary artery without angina pectoris Long-term use [...] The patien (more content not included)... Normal [facility] 03-21-2025 [facility] Telephone (NREUS2) ADOLFO RIVERA ([id number]) 1945 M Date Time Provider Department 03/21/25 JOHN TOLLIVER NREUS2 During your visit today, we recorded the following information about you: [facility] 03/21/2025 10:21 AM Signed Referral received from Dr. Jolly Herndon/Adult Geriatrics [facility] for NPH (copy in scanned docs). Doron Olivarez RN 03/21/2025 10:29 AM Signed Triaged, message sent to supervisor front requesting patient be contact to schedule movement/nsgy [...] tryptase. Fax results to Dr. Hurd at [phone] - albuterol HFA (PROVENTIL HFA, VENTOLIN HFA) 90 mcg/actuation inhaler Inhale 2 Puffs as instructed every 4 hours as needed (for cough, wheezing, chest tightness or shortness of breath. Use with spacer. ). - EPINEPHrine (EPIPEN) 0.3 mg/0.3 mL auto-injector Inject 0.3 mL intramuscularly as needed (for allergic reaction.Seek emergent medical care immediately after use.Disp:one 2-pack w/first aid trainer). - MULTIVITAMIN TAB Take one(1) tablet daily. - isosorbide mononitrate(IMDUR 30 MG 24 HR TAB) Take one(1) tablet daily. Problem List As Of Date 03/21/2025 Noted Resolved SKIN DISORDER NOS [L98.9] 06/06/2007 Encounter Status:Closed by DORON OLIVAREZ on 03/21/25 Normal [facility] Cardiology Visit Reporton Cardiology Visit Report [facility] Heart [address] [place] [address] OFFICE VISIT Date of Service: 03/20/25 MR#: [id number] Acct: [id number] Name: ADOLFO RIVERA Rep #: [id number] : 1945 Provider: ZULEMA Paiz Age/Sex: 79/M Location: [facility] Status: Signed HPI HPI History of Present [...] is being referred to a neurosurgeon in [place]. notes that he has edema and does [...] Monitor Intake Visit Reasons: 1 Y FU [place] Cutter Required: No Accompanied by: Is patient in [...] Yes (3 in november tripped (dx: hydrocephalus)) [facility] Medical History Implantable loop recorder present Wears hearing aid Wears partial dentures Arthritis Back pain Gastric reflux Non-smoker Shortness of breath on exertion History of pain when walking History of edema History of echocardiogram History of stress test Hypertension Cardiology follow-up encounter Syncope Pure hypercholesterolemia Essential hypertension Hiatal hernia Asthma Atherosclerotic heart disease of [place] coronary artery without angina pectoris Long-term use [...] (more content not included)... Normal [facility] Magnetic resonance imaging r eportOrdered By: Johnson Greenwood on 03-18-2025 Study report [facility] Imaging Services [address] [place] [address] Brain without Contrast MR#: [id number] Acct: [id number] Name: ADOLFO RIEVRA Rep #: [id number] : 1945 M 79 From: Lise Greenwood MD PCP: Dr. Price Herndon MD Status: REG C Study:Brain without Contrast Date of Exam: 03/17/25 Exam# [id number] Ordering Dr: Price Herndon MD PROCEDURE: BRAIN [...] of an acute traumatic abnormality. Reading Location: [place] [address] CC: Dr. Price Herndon MD ~ Inside Sales Territory Manager: Signed [facility] Brain without Contraston Brain without Contrast [facility] Imaging Services [address] [place] [address] Brain without Contrast MR#: [id number] Acct: [id number] Name: ADOLFO RIVERA Rep #: [id number] : 1945 79 From: Johnson devine MD PCP: Dr. Price Herndon MD Status: REG CLI Study: Brain without Contrast Date of Exam: 03/17/25 Exam# [id number] Ordering Dr: Price Herndon MD PROCEDURE: BRAIN [...] of an acute traumatic abnormality. Reading Location: [place] [address] CC: Dr. Price Herndon MD Inside Sales Territory Manager: Signed Normal [facility] PT D/C Summary (1)on 025 PT D/C Summary (1) [facility] Physical Therapy Health[address] [place] [address] / REHABILITATION SERVICES DISCHARGE SUMMARY MR#: [id number] Acct: [id number] Name: ADOLFO RIVERA Rep #: [id number] : 1945 79 From: Bob Mcmahan PT, Cert. T, [facility] Referring Dr.: Dr. Price Herndon MD [...] please feel free to call me at [phone]. Thank you for the referral of this patient. Sincerely, Bob Mcmahan, PT, Cert MDT, OCS Balance/Gait/Functional tests Balance/Special Test Scores Functional Gait Assessment Score: 18 % Disability: 40.0000 CATSIB Score (Max score 120 seconds): 70 Oswestry Low Back Score: 30 Improvement % Improvement: 10 02/21/25 1024 CC: Dr. Price Herndon MD BERRY Signed Normal [facility] Inital Evaluation (1) - PTon 01-27-2025 Inital Evaluation (1) - PT [facility] Physical Therapy Health[address] [place] [address] / REHABILITATION SERVICES INITIAL EVALUATION MR#: [id number] Acct: [id number] Name: ADOLFO RIVERA Rep #: [id number] : 1945 79 From: Bob Mcmahan PT, [...] which did not help which was done [place]. Patient has been falling mechanical fall got foot on pavement dragging in [place] 3 weeks ago. Symmetrical lumbar no radicular [...] (more content not included)... Normal [facility] Absolute lymphocyte countOrd ered By: Price Yanick on 01-23-2025 Lymphocytes Auto (Unsp spec) [#/Vol] 0.82 10*3/uL Low 0.83-4.51 [facility] Absolute neutrophil countOrd ered By: [facility] 01-23-2025 Neutrophils (Bld) [#/Vol] 3.5 10*3/uL 2.0-7.7 [facility] Anion gap in Serum or Plasma Ordered By: Price Yanick on 01-23-2025 Anion gap [Moles/Vol] 11 mmol/L 5-15 [facility] Automated lymphocyte count a s percentage of total leukocytesOrdered By: Price Yanick on 01-23-2025 Lymphocytes/100 WBC Auto (Unsp spec) 17.1 % Low 19-41 [facility] BUN/creatinine ratioOrdered By: [facility] on 01-23-2025 Urea nitrogen/Creatinine [Mass ratio] 17.3 mg/mg 10-20 [facility] Basophil percentageOrdered B y: Price Yanick on 01-23-2025 Basophils/100 WBC (Bld) 0.6 % 0-1 [facility] Bilirubin, totalOrdered By: Price Yanick on 01-23-2025 Bilirubin [Mass/Vol] 0.46 mg/dL 0.00-1.30 [facility] CBC W/Diff, Automatedon Absolute Lymph 0.82 X10 3/uL Low 0.83-4.51 [facility] Comment on above: Performed By: #### L 500.4050, L501.9520, L100.0100, L506.1001 #### [facility] Laboratory [address] [place], [place], [id number] Absolute Neut 3.5 X10 3/uL Normal 2.0-7.7 [facility] Comment on above: Performed By: #### L 500.4050, L501.9520, L100.0100, L506.1001 #### [facility] Laboratory [address] [place], [address] Basophils/100 WBC (Bld) 0.6 % Normal 0-1 [facility] Comment on above: Performed By: #### L 500.4050, L501.9520, L100.0100, L506.1001 #### [facility] Laboratory [address] [place], [address] Eosinophils/100 WBC (Bld) 1.0 % Normal 0-5 [facility] Comment on above: Performed By: #### L 500.4050, L501.9520, L100.0100, L506.1001 #### [facility] Laboratory [address] [place], [address] Erythrocyte distribution width (RBC) [Ratio] 14.3 % Normal 11.6-14.6 [facility] Comment on above: Performed By: #### L 500.4050, L501.9520, L100.0100, L506.1001 #### [facility] Laboratory [address] [place], [address] Hematocrit (Bld) [Volume fraction] 36.3 % Low 40-54 [facility] Comment on above: Performed By: #### L 500.4050, L501.9520, L100.0100, L506.1001 #### [facility] Laboratory [address] [place], [address] Hemoglobin (Bld) [Mass/Vol] 12.1 g/dL Low 13.0-16.5 [facility] Comment on above: Performed By: #### L 500.4050, L501.9520, L100.0100, L506.1001 #### [facility] Laboratory [address] [place], [address] IG% 0.600 Normal 0.0-0.9 [facility] Comment on above: Result Comment: IG% - Immature Granulocytes (promyelocytes, myelocytes and metamyelocytes) > 1% indicates that a LEFT SHIFT is Present. Performed By: #### L 500.4050, L501.9520, L100.0100, L506.1001 #### [facility] Laboratory [address] [place], [address] Lymphocytes/100 WBC (Bld) 17.1 % Low 19-41 [facility] Comment on above: Performed By: #### L 500.4050, L501.9520, L100.0100, L506.1001 #### [facility] Laboratory [address] [place], [address] MCH (RBC) [Entitic mass] 33.2 pg High 27.0-32.0 [facility] Comment on above: Performed By: #### L 500.4050, L501.9520, L100.0100, L506.1001 #### [facility] Laboratory [address] [place], [address] MCHC (RBC) [Mass/Vol] 33.3 g/dL Normal 32-36 [facility] Comment on above: Performed By: #### L 500.4050, L501.9520, L100.0100, L506.1001 #### [facility] Laboratory [address] [place], [address] MCV (RBC) [Entitic vol] 99.7 fL High 80-94 [facility] Comment on above: Performed By: #### L 500.4050, L501.9520, L100.0100, L506.1001 #### [facility] Laboratory [address] [place], [address] Monocytes/100 WBC (Bld) 8.8 % Normal 0-10 [facility] Comment on above: Performed By: #### L 500.4050, L501.9520, L100.0100, L506.1001 #### [facility] Laboratory [address] [place], [address] Neutrophils/100 WBC (Bld) 71.9 % High 47-70 [facility] Comment on above: Performed By: #### L 500.4050, L501.9520, L100.0100, L506.1001 #### [facility] Laboratory [address] [place], [address] Nucleated RBC (Bld) [#/Vol] 0 10*3/uL Normal 0-5 [facility] Comment on above: Performed By: #### L 500.4050, L501.9520, L100.0100, L506.1001 #### [facility] Laboratory [address] [place], [address] Platelet mean volume (Bld) [Entitic vol] 9.0 fL Normal 6.2-12.0 [facility] Comment on above: Performed By: #### L 500.4050, L501.9520, L100.0100, L506.1001 #### [facility] Laboratory [address] [place], [address] Platelets (Bld) [#/Vol] 196 10*3/uL Normal 150-450 [facility] Comment on above: Performed By: #### L 500.4050, L501.9520, L100.0100, L506.1001 #### [facility] Laboratory [address] [place], [address] RBC (Bld) [#/Vol] 3.64 10*6/uL Low 4.6-6.2 [facility] Comment on above: Performed By: #### L 500.4050, L501.9520, L100.0100, L506.1001 #### [facility] Laboratory [address] [place], [address] RDW SD 52.2 fl High 35.1-43.9 [facility] Comment on above: Performed By: #### L 500.4050, L501.9520, L100.0100, L506.1001 #### [facility] Laboratory [address] [place], [address] WBC (Bld) [#/Vol] 4.8 10*3/uL Normal 4.4-11.0 [facility] Comment on above: Performed By: #### L 500.4050, L501.9520, L100.0100, L506.1001 #### [facility] Laboratory [address] [place], [address] Carbon dioxide, total [Moles /volume] in Central venous bloodOrdered By: Price Herndon on 01-23-2025 CO2 [Moles/Vol] 23.4 mmol/L 21.0-32.0 [facility] Chloride assayOrdered By: Brendan Herndon on 01-23-2025 Chloride [Moles/Vol] 102 mmol/L 98-108 [facility] Comprehensive Metabolic Prof ilon 01-23-2025 Albumin [Mass/Vol] 2.9 g/dL Low 3.4-4.8 [facility] Comment on above: Performed By: #### L 500.4050, L501.9520, L100.0100, L506.1001 #### [facility] Laboratory [address] [place], [address] Albumin/Globulin [Mass ratio] -2.3000 {ratio} Low 0.9-2.4 [facility] Comment on above: Performed By: #### L 500.4050, L501.9520, L100.0100, L506.1001 #### [facility] Laboratory [address] [place], [address] ALK PHOS 80 U/L Normal 40-129 [facility] Comment on above: Performed By: #### L 500.4050, L501.9520, L100.0100, L506.1001 #### [facility] Laboratory [address] [place], [address] ALT [Catalytic activity/Vol] 26 U/L Normal <=46 [facility] Comment on above: Performed By: #### L 500.4050, L501.9520, L100.0100, L506.1001 #### [facility] Laboratory [address] [place], [address] AST [Catalytic activity/Vol] 23 U/L Normal <=37 [facility] Comment on above: Performed By: #### L 500.4050, L501.9520, L100.0100, L506.1001 #### [facility] Laboratory [address] [place], [address] Bilirubin [Mass/Vol] 0.46 mg/dL Normal 0.00-1.30 [facility] Comment on above: Performed By: #### L 500.4050, L501.9520, L100.0100, L506.1001 #### [facility] Laboratory [address] [place], [address] BUN/CRE 17.3 RATIO Normal 10-20 [facility] Comment on above: Performed By: #### L 500.4050, L501.9520, L100.0100, L506.1001 #### [facility] Laboratory [address] [place], [address] Calcium [Mass/Vol] 8.5 mg/dL Normal 7.6-11.0 [facility] Comment on above: Performed By: #### L 500.4050, L501.9520, L100.0100, L506.1001 #### [facility] Laboratory [address] [place], [address] Chloride [Moles/Vol] 102 mmol/L Normal 98-108 [facility] Comment on above: Performed By: #### L 500.4050, L501.9520, L100.0100, L506.1001 #### [facility] Laboratory [address] [place], [address] CO2 [Moles/Vol] 23.4 mmol/L Normal 21.0-32.0 [facility] Comment on above: Performed By: #### L 500.4050, L501.9520, L100.0100, L506.1001 #### [facility] Laboratory [address] [place], [address] Creatinine [Mass/Vol] 0.85 mg/dL Normal 0.70-1.20 [facility] Comment on above: Performed By: #### L 500.4050, L501.9520, L100.0100, L506.1001 #### [facility] Laboratory [address] [place], [address] GAP 11 Normal 5-15 [facility] Comment on above: Performed By: #### L 500.4050, L501.9520, L100.0100, L506.1001 #### [facility] Laboratory [address] [place], [address] GFR/1.73 sq M.predicted among non-blacks MDRD (S/P/Bld) [Vol rate/Area] 87 mL/min/{1.73_m2} Normal >60 [facility] Comment on above: Result Comment: mL/m in/1.73m2 CKD-EPI Creatinine Equation (2020) Performed By: #### L 500.4050, L501.9520, L100.0100, L506.1001 #### [facility] Laboratory [address] [place], [address] Globulin (S) [Mass/Vol] -1.3000 g/dL Low 2.2-4.2 [facility] Comment on above: Result Comment: AMENDED REPORT 01/23/25 1409 GLOB previously reported as: -1.3 L g/dL Performed By: #### L 500.4050, L501.9520, L100.0100, L506.1001 #### [facility] Laboratory [address] [place], [address] Glucose [Mass/Vol] 112 mg/dL High 70-99 [facility] Comment on above: Performed By: #### L 500.4050, L501.9520, L100.0100, L506.1001 #### [facility] Laboratory [address] [place], [address] Potassium [Moles/Vol] 4.2 mmol/L Normal 3.3-5.1 [facility] Comment on above: Performed By: #### L 500.4050, L501.9520, L100.0100, L506.1001 #### [facility] Laboratory [address] [place], [address] Sodium [Moles/Vol] 137 mmol/L Normal 133-145 [facility] Comment on above: Performed By: #### L 500.4050, L501.9520, L100.0100, L506.1001 #### [facility] Laboratory [address] [place], [address] T PROT 1.7 g/dL Low 5.9-8.4 [facility] Comment on above: Result Comment: AMENDED REPORT 01/23/25 1409 T PROT previously reported as: 1.7 L g/dL Performed By: #### L 500.4050, L501.9520, L100.0100, L506.1001 #### [facility] Laboratory [address] [place], [address] Urea nitrogen [Mass/Vol] 15 mg/dL Normal 4-19 [facility] Comment on above: Performed By: #### L 500.4050, L501.9520, L100.0100, L506.1001 #### [facility] Laboratory [address] [place], [address] Eosinophil percentageOrdered By: [facility] 01-[facility] Eosinophils/100 WBC (Bld) 1.0 % 0-5 [facility] Erythrocyte distribution wid th ratioOrdered By: [facility] on 01-23-2025 Erythrocyte distribution width (RBC) [Ratio] 14.3 % 11.6-14.6 [facility] Erythrocyte distribution wid th standard deviationOrdered By: [facility] on 01-23-2025 Erythrocyte distribution width (RBC) [Ratio] 52.2 fl High 35.1-43.9 [facility] Glomerular filtration rate ( GFR) estimation/1.73 sq m using serum, plasma, or whole bOrdered By: [facility] GFR/1.73 sq M.predicted among non-blacks MDRD (S/P/Bld) [Vol rate/Area] 87 mL/min/{1.73_m2} >60 [facility] Comment on above: mL/min/1.73m2 CKD-EP I Creatinine Equation (2020) Hematocrit Auto (Bld) [Volum e fraction]Ordered By: [facility] on 01-23-2025 Hematocrit (Bld) [Volume fraction] 36.3 % Low 40-54 [facility] Hemoglobin measurementOrdere d By: Price Yanick 01-23-2025 Hemoglobin (Bld) [Mass/Vol] 12.1 g/dL Low 13.0-16.5 [facility] Immature granulocytes/100 WB C Auto (Bld)Ordered By: Price Yanick 01-23-2025 Immature granulocytes/100 WBC (Bld) 0.600 % 0.0-0.9 [facility] Comment on above: IG% - Immature Granu locytes (promyelocytes, myelocytes and metamyelocytes) > 1% indicates that a LEFT SHIFT is Present. Laboratory - Chemistry and C hemistry - challengeOrdered By: Price Yanick 01-23-2025 AST [Catalytic activity/Vol] 23 U/L <38 [facility] MCV (mean corpuscular volume ) determinationOrdered By: Price Yanick 01-23-2025 MCV (RBC) [Entitic vol] 99.7 fL High 80-94 [facility] Mean corpuscular hemoglobin (MCH) determinationOrdered By: Price Herndon on 01-23-2025 MCH (RBC) [Entitic mass] 33.2 pg High 27.0-32.0 [facility] Mean corpuscular hemoglobin concentration (MCHC) determinationOrdered By: Price Herndon on 01-23-2025 MCHC (RBC) [Mass/Vol] 33.3 g/dL 32-36 [facility] Mean platelet volume determi nationOrdered By: Price Herndon on 01-23-2025 Platelet mean volume (Bld) [Entitic vol] 9.0 fL 6.2-12.0 [facility] Monocyte percentageOrdered B y: Price Herndon on 01-23-2025 Monocytes/100 WBC (Bld) 8.8 % 0-10 [facility] Neutrophil percentageOrdered By: Price Herndon on 01-23-2025 Neutrophils/100 WBC (Bld) 71.9 % High 47-70 [facility] Nucleated red blood cell per centageOrdered By: Price Herndon on 01-23-2025 Nucleated RBC/100 WBC (Bld) [Ratio] 0 % 0-5 [facility] Platelet countOrdered By: Brendan Herndon on 01-23-2025 Platelets (Bld) [#/Vol] 196 10*3/uL 150-450 [facility] Potassium measurement (mass/ volume)Ordered By: Price Herndon on 01-23-2025 Potassium (Unsp spec) [Mass/Vol] 4.2 mmol/L 3.3-5.1 [facility] RBC Auto (Bld) [#/Vol]Ordere d By: Price Herndon on 01-23-2025 RBC (Bld) [#/Vol] 3.64 10*6/uL Low 4.6-6.2 [facility] Serum creatinine measurement (mass/volume)Ordered By: Price Herndon on 01-23-2025 Creatinine [Mass/Vol] 0.85 mg/dL 0.70-1.20 [facility] Serum globulin measurementOr dered By: Price Herndon on 01-23-2025 Globulin (S) [Mass/Vol] 3.1 g/dL 2.2-4.2 [facility] Comment on above: Previous reported re sult: -1.3 g/dLEdited by: SEBASTIEN on 01/23/25:1409 AMENDED REPORT 01/23/25 1409 GLOB previously reported as: -1.3 L g/dL Serum glucose measurement (m ass/volume)Ordered By: Price Herndon on 01-23-2025 Glucose [Mass/Vol] 112 mg/dL High 70-99 [facility] Serum or plasma alanine rojas otransferase (ALT) measurementOrdered By: Price Herndon on 01-23-2025 ALT [Catalytic activity/Vol] 26 U/L <47 [facility] Serum or plasma albumin jake urement (mass/volume)Ordered By: Price Herndon on 01-23-2025 Albumin [Mass/Vol] 2.9 g/dL Low 3.4-4.8 [facility] Serum or plasma albumin/glob ulin mass ratioOrdered By: Price Herndon on 01-23-2025 Albumin/Globulin [Mass ratio] -2.3000 {ratio} Low 0.9-2.4 [facility] Serum or plasma alkaline jimenez sphatase measurementOrdered By: Price Herndon on 01-23-2025 ALP [Catalytic activity/Vol] 80 U/L 40-129 [facility] Serum or plasma calcium jake urement (mass/volume)Ordered By: Price Herndon on 01-23-2025 Calcium [Mass/Vol] 8.5 mg/dL 7.6-11.0 [facility] Serum or plasma urea nitroge n measurement (mass/volume)Ordered By: Price Herndon on 01-23-2025 Urea nitrogen [Mass/Vol] 15 mg/dL 4-19 [facility] Sodium levelOrdered By: Price Herndon on 01-23-2025 Sodium [Moles/Vol] 137 mmol/L 133-145 [facility] TSH DL <= 0.005 mIU/L QnOrde red By: Price Herndon on 01-23-2025 TSH Qn 0.801 uIU/mL 0.300-4.200 [facility] Thyroid Stim Hormone (TSH)on 01-23-2025 TSH 0.801 uIU/mL Normal 0.300-4.200 [facility] Comment on above: Performed By: #### L 500.4050, L501.9520, L100.0100, L506.1001 #### [facility] Laboratory [address] [place], [address] Total proteinOrdered By: Price Herndon on 01-23-2025 Protein [Mass/Vol] 6.1 g/dL 5.9-8.4 [facility] Comment on above: Previous reported re sult: 1.7 g/dLEdited by: SEBASTIEN on 01/23/25:1409 AMENDED REPORT 01/23/25 1409 T PROT previously reported as: 1.7 L g/dL Vitamin D,25 Hydroxyon 01-23 Vitamin D 25-OH 29.1 ng/mL Low 30-100 [facility] Comment on above: Result Comment: Anju min D Status Deficiency: <20 ng/mL (50nmol/L) Insufficiency: 20-30 ng/mL (50-75 nmol/L) Sufficiency: 30-100 ng/mL (75-250 nmol/L) Toxicity: >100 ng/mL (>250 nmol/L) Performed By: #### L 500.4050, L501.9520, L100.0100, L506.1001 #### [facility] Laboratory [address] [place], [address] White blood cell (WBC) count Ordered By: Price Herndon on 01-23-2025 WBC (Bld) [#/Vol] 4.8 10*3/uL 4.4-11.0 [facility] MRI SPINE LUMBAR W/O CONTRAS Ton [...] 09/02/2024 10:41:02 AM Ordering Provider: KAREN SOMERS [facility] MAIN PT D/C Summary (1)on 024 PT D/C Summary (1) [facility] Physical Therapy Health[address] [place] [address] / REHABILITATION SERVICES DISCHARGE SUMMARY MR#: [id number] Acct: [id number] Name: ADOLFO RIVERA Rep #: [id number] : 1945 78 From: Bob Mcmahan PT, Cert. T, OCS Referring DrYves: Dr. Price Herndon MD Status: REG RCR Insurance: MEDICARE PART A B [facility] Discharge Summary D/C summary: It has been my pleasure to treat ADOLFO RIVERA referred by Dr. Price Herndon MD, with the diagnosis of LOW BACK PAIN for a total of 9 visit(s). Discharge Date: Please see the following information for a summary of their discharge status. Subjective Subjective: Doing okay plan to see in [place] spine Feel stronger but conts to have [...] with less pain Plan Plan: SEE ORTHO MRI ASSISTANT D/C Information d/c sentence: If there are questions or concerns regarding this patient's physical therapy, please feel free to call me at [phone]. Thank you for the referral of this patient. Sincerely, Bob Mcmahan, PT, Cert MDT, OCS Balance/Gait/Functional tests Balance/Special Test Scores Oswestry Low Back Score: 23 Improvement % Improvement: 40 08/27/24 1123 CC: Dr. Price Herndon MD JLA Signed Normal [facility] CBC W/Diff, Automatedon 11-1 Absolute Lymph 1.35 X10 3/uL Normal 0.83-4.51 [facility] Comment on above: Performed By: #### L 501.9520, L506.1000, M100.678, L500.4050, L100.0100 #### [facility] Laboratory [address] [place], [address] Absolute Neut 2.7 X10 3/uL Normal 2.0-7.7 [facility] Comment on above: Performed By: #### L 501.9520, L506.1000, M100.678, L500.4050, L100.0100 #### [facility] Laboratory [address] [place], [address] Basophils/100 WBC (Bld) 0.8 % Normal 0-1 [facility] Comment on above: Performed By: #### L 501.9520, L506.1000, M100.678, L500.4050, L100.0100 #### [facility] Laboratory [address] [place], [address] Eosinophils/100 WBC (Bld) 7.1 % High 0-5 [facility] Comment on above: Performed By: #### L 501.9520, L506.1000, M100.678, L500.4050, L100.0100 #### [facility] Laboratory [address] [place], [address] Erythrocyte distribution width (RBC) [Ratio] 14.3 % Normal 11.6-14.6 [facility] Comment on above: Performed By: #### L 501.9520, L506.1000, M100.678, L500.4050, L100.0100 #### [facility] Laboratory [address] [place], [address] Hematocrit (Bld) [Volume fraction] 40.7 % Normal 40-54 [facility] Comment on above: Performed By: #### L 501.9520, L506.1000, M100.678, L500.4050, L100.0100 #### [facility] Laboratory [address] [place], [address] Hemoglobin (Bld) [Mass/Vol] 13.3 g/dL Normal 13.0-16.5 [facility] Comment on above: Performed By: #### L 501.9520, L506.1000, M100.678, L500.4050, L100.0100 #### [facility] Laboratory [address] [place], [address] IG% 0.200 Normal 0.0-0.9 [facility] Comment on above: Result Comment: IG% - Immature Granulocytes (promyelocytes, myelocytes and metamyelocytes) > 1% indicates that a LEFT SHIFT is Present. Performed By: #### L 501.9520, L506.1000, M100.678, L500.4050, L100.0100 #### [facility] Laboratory [address] [place], [address] Lymphocytes/100 WBC (Bld) 27.5 % Normal 19-41 [facility] Comment on above: Performed By: #### L 501.9520, L506.1000, M100.678, L500.4050, L100.0100 #### [facility] Laboratory [address] [place], [address] MCH (RBC) [Entitic mass] 32.0 pg Normal 27.0-32.0 [facility] Comment on above: Performed By: #### L 501.9520, L506.1000, M100.678, L500.4050, L100.0100 #### [facility] Laboratory [address] [place], [address] MCHC (RBC) [Mass/Vol] 32.7 g/dL Normal 32-36 [facility] Comment on above: Performed By: #### L 501.9520, L506.1000, M100.678, L500.4050, L100.0100 #### [facility] [address] [place], [address] MCV (RBC) [Entitic vol] 97.8 fL High 80-94 [facility] Comment on above: Performed By: #### L 501.9520, L506.1000, M100.678, L500.4050, L100.0100 #### [facility] [address] [place], [address] Monocytes/100 WBC (Bld) 10.0 % Normal 0-10 [facility] Comment on above: Performed By: #### L 501.9520, L506.1000, M100.678, L500.4050, L100.0100 #### [facility] [address] [place], [address] Neutrophils/100 WBC (Bld) 54.4 % Normal 47-70 [facility] Comment on above: Performed By: #### L 501.9520, L506.1000, M100.678, L500.4050, L100.0100 #### [facility] Laboratory [address] [place], [address] Nucleated RBC (Bld) [#/Vol] 0 10*3/uL Normal 0-5 [facility] Comment on above: Performed By: #### L 501.9520, L506.1000, M100.678, L500.4050, L100.0100 #### [facility] Laboratory [address] [place], [address] Platelet mean volume (Bld) [Entitic vol] 9.3 fL Normal 6.2-12.0 [facility] Comment on above: Performed By: #### L 501.9520, L506.1000, M100.678, L500.4050, L100.0100 #### [facility] Laboratory [address] [place], [address] Platelets (Bld) [#/Vol] 211 10*3/uL Normal 150-450 [facility] Comment on above: Performed By: #### L 501.9520, L506.1000, M100.678, L500.4050, L100.0100 #### [facility] Laboratory [address] [place], [address] RBC (Bld) [#/Vol] 4.16 10*6/uL Low 4.6-6.2 [facility] Comment on above: Performed By: #### L 501.9520, L506.1000, M100.678, L500.4050, L100.0100 #### [facility] Laboratory [address] [place], [address] RDW SD 51.8 fl High 35.1-43.9 [facility] Comment on above: Performed By: #### L 501.9520, L506.1000, M100.678, L500.4050, L100.0100 #### [facility] Laboratory [address] [place], [address] WBC (Bld) [#/Vol] 4.9 10*3/uL Normal 4.4-11.0 [facility] Comment on above: Performed By: #### L 501.9520, L506.1000, M100.678, L500.4050, L100.0100 #### [facility] Laboratory [address] [place], [address] Comprehensive [facility] 08-08-2024 Albumin [Mass/Vol] 3.5 g/dL Normal 3.2-5.0 [facility] Comment on above: Performed By: #### L 501.9520, L506.1000, M100.678, L500.4050, L100.0100 #### [facility] Laboratory [address] [place], [address] Albumin/Globulin [Mass ratio] 1.0 {ratio} Normal 0.9-2.4 [facility] Comment on above: Performed By: #### L 501.9520, L506.1000, M100.678, L500.4050, L100.0100 #### [facility] Laboratory [address] [place], [address] ALK P 94 U/L Normal 45-117 [facility] Comment on above: Performed By: #### L 501.9520, L506.1000, M100.678, L500.4050, L100.0100 #### [facility] Laboratory [address] [place], [address] ALT [Catalytic activity/Vol] 34 U/L Normal 16-61 [facility] Comment on above: Performed By: #### L 501.9520, L506.1000, M100.678, L500.4050, L100.0100 #### [facility] Laboratory [address] [place], [address] AST [Catalytic activity/Vol] 23 U/L Normal 15-37 [facility] Comment on above: Performed By: #### L 501.9520, L506.1000, M100.678, L500.4050, L100.0100 #### [facility] Laboratory [address] [place], [address] Bilirubin [Mass/Vol] 0.50 mg/dL Normal 0.20-1.00 [facility] Comment on above: Result Comment: For patients on eltrombopag therapy, use of Dimension [place] TBIL is not recommended. Performed By: #### L 501.9520, L506.1000, M100.678, L500.4050, L100.0100 #### [facility] Laboratory [address] [place], [address] BUN/CRE 17.0 RATIO Normal 10-20 [facility] Comment on above: Performed By: #### L 501.9520, L506.1000, M100.678, L500.4050, L100.0100 #### [facility] [address] [place], [address] CA,Total 9.2 mg/dL Normal 8.5-10.1 [facility] Comment on above: Performed By: #### L 501.9520, L506.1000, M100.678, L500.4050, L100.0100 #### [facility] [address] [place], [address] Chloride [Moles/Vol] 105 mmol/L Normal 98-107 [facility] Comment on above: Performed By: #### L 501.9520, L506.1000, M100.678, L500.4050, L100.0100 #### [facility] [address] [place], [address] CO2 [Moles/Vol] 28.0 mmol/L Normal 21.0-32.0 [facility] Comment on above: Performed By: #### L 501.9520, L506.1000, M100.678, L500.4050, L100.0100 #### [facility] Laboratory [address] [place], [address] Creatinine [Mass/Vol] 1.00 mg/dL Normal 0.70-1.30 [facility] Comment on above: Result Comment: The validity of the calculated GFR GFRAA in patients over 70 years has not been determined. Clinical correlation is essential. Performed By: #### L 501.9520, L506.1000, M100.678, L500.4050, L100.0100 #### [facility] [address] [place], [address] EST GFR - AA 92 mL/min Normal >60 [facility] Comment on above: Result Comment: Afri can Icelandic GFR Calc Performed By: #### L 501.9520, L506.1000, M100.678, L500.4050, L100.0100 #### [facility] Laboratory [address] [place], [address] GAP 6 Normal 5-15 [facility] Comment on above: Performed By: #### L 501.9520, L506.1000, M100.678, L500.4050, L100.0100 #### [facility] Laboratory [address] [place], [address] GFR/1.73 sq M.predicted among non-blacks MDRD (S/P/Bld) [Vol rate/Area] 76 mL/min/{1.73_m2} Normal >60 [facility] Comment on above: Result Comment: Non- GFR Calc Performed By: #### L 501.9520, L506.1000, M100.678, L500.4050, L100.0100 #### [facility] Laboratory [address] [place], [address] Globulin (S) [Mass/Vol] 3.4 g/dL Normal 2.2-4.2 [facility] Comment on above: Performed By: #### L 501.9520, L506.1000, M100.678, L500.4050, L100.0100 #### [facility] Laboratory [address] [place], [address] Glucose [Mass/Vol] 93 mg/dL Normal 74-106 [facility] Comment on above: Performed By: #### L 501.9520, L506.1000, M100.678, L500.4050, L100.0100 #### [facility] [address] [place], [address] Potassium [Moles/Vol] 4.1 mmol/L Normal 3.5-5.1 [facility] Comment on above: Performed By: #### L 501.9520, L506.1000, M100.678, L500.4050, L100.0100 #### [facility] Laboratory [address] [place], [address] Sodium [Moles/Vol] 139 mmol/L Normal 136-145 [facility] Comment on above: Performed By: #### L 501.9520, L506.1000, M100.678, L500.4050, L100.0100 #### [facility] [address] [place], [address] T PROT 6.9 g/dL Normal 6.4-8.2 [facility] Comment on above: Performed By: #### L 501.9520, L506.1000, M100.678, L500.4050, L100.0100 #### [facility] Laboratory [address] [place], [address] Urea nitrogen [Mass/Vol] 17 mg/dL Normal 7-18 [facility] Comment on above: Performed By: #### L 501.9520, L506.1000, M100.678, L500.4050, L100.0100 #### [facility] [address] [place], [address] M100.678on 08-08-2024 M100.678 Pending SARS-CoV-2 (COVID 19) Negative INFLUENZA A Negative INFLUENZA B Negative RSV PCR Negative Normal [facility] Comment on above: Performed By: #### L 501.9520, L506.1000, M100.678, L500.4050, L100.0100 #### [facility] Laboratory [address] [place], [address] Thyroid Stim Hormone (TSH)on 08-08-2024 TSH 1.200 uIU/mL Normal 0.358-3.740 [facility] Comment on above: Performed By: #### L 501.9520, L506.1000, M100.678, L500.4050, L100.0100 #### [facility] [address] [place], [address] Vitamin D,25 Hydroxyon 08-08 Vitamin D 25-OH 30.5 ng/mL Normal [facility] Comment on above: Result Comment: Anju min D 25(OH) Status Range Deficiency <20 ng/mL (50nmol/L) Insufficiency 20 - 30 ng/mL (50 - 75 nmol/L) Sufficiency 30 - 100 ng/mL (75 - 250 nmol/L) Toxicity >100 ng/mL (>250 nmol/L) Performed By: #### L 501.9520, L506.1000, M100.678, L500.4050, L100.0100 #### [facility] [address] [place], [address] Absolute lymphocyte countOrd ered By: Price Herndon on 01-29-2024 Lymphocytes Auto (Unsp spec) [#/Vol] 1.17 10*3/uL 0.83-4.51 [facility] Automated lymphocyte count a s percentage of total leukocytesOrdered By: Price Herndon on 01-29-2024 Lymphocytes/100 WBC Auto (Unsp spec) 21.7 % 19-41 [facility] Basophil percentageOrdered B y: Price Herndon on 01-29-2024 Basophils/100 WBC (Bld) 0.9 % 0-1 [facility] Chloride [Moles/Vol] 105 mmol/L 98-107 [facility] Eosinophils/100 WBC (Bld) 5.0 % 0-5 [facility] Glucose [Mass/Vol] 112 mg/dL 74-106 [facility] Comment on above: Fasting Glucose resu lt from 100 to 125 mg/dL suggests IMPAIRED HOMEOSTASIS per A.D.A. criteria. Hemoglobin (Bld) [Mass/Vol] 13.1 g/dL 13.0-16.5 [facility] Monocytes/100 WBC (Bld) 8.7 % 0-10 [facility] Neutrophils (Bld) [#/Vol] 3.4 10*3/uL 2.0-7.7 [facility] Neutrophils/100 WBC (Bld) 63.5 % 47-70 [facility] Potassium [Moles/Vol] 4.1 mmol/L 3.5-5.1 [facility] Sodium [Moles/Vol] 138 mmol/L 136-145 [facility] WBC (Bld) [#/Vol] 5.4 10*3/uL 4.4-11.0 [facility] Determination of erythrocyte mean corpuscular volume (MCV)Ordered By: Price Herndon on 01-29-2024 MCV (RBC) [Entitic vol] 97.8 fL 80-94 [facility] Erythrocyte distribution wid th ratioOrdered By: Price Herndon on 01-29-2024 Erythrocyte distribution width (RBC) [Ratio] 14.4 % 11.6-14.6 [facility] Erythrocyte distribution wid th standard deviationOrdered By: Price Herndon on 01-29-2024 Erythrocyte distribution width (RBC) [Entitic vol] 51.9 fL 35.1-43.9 [facility] Hematocrit Auto (Bld) [Volum e fraction]Ordered By: Price Herndon on 01-29-2024 Hematocrit (Bld) [Volume fraction] 39.9 % 40-54 [facility] Immature granulocytes/100 WB C Auto (Bld)Ordered By: Price Yanick on 01-29-2024 Immature granulocytes/100 WBC (Bld) 0.200 % 0.0-0.9 [facility] Comment on above: IG% - Immature Granu locytes (promyelocytes, myelocytes and metamyelocytes) > 1% indicates that a LEFT SHIFT is Present. Laboratory - Chemistry and C hemistry - challengeOrdered By: Price Herndon on 01-29-2024 CO2 [Moles/Vol] 27.0 mmol/L 21.0-32.0 [facility] Natriuretic peptide B (Bld) [Mass/Vol] 49.9 pg/mL 0-100 [facility] Urea nitrogen/Creatinine [Mass ratio] 20.4 mg/mg 10-20 [facility] Laboratory - Hematology and Cell countsOrdered By: Price Herndon 01-29-2024 MCH (RBC) [Entitic mass] 32.1 pg 27.0-32.0 [facility] MCHC (RBC) [Mass/Vol] 32.8 g/dL 32-36 [facility] Nucleated RBC/100 WBC (Bld) [Ratio] 0 % 0-5 [facility] Platelet mean volume (Bld) [Entitic vol] 10.0 fL 6.2-12.0 [facility] Platelets (Bld) [#/Vol] 233 10*3/uL 150-450 [facility] No Panel InformationOrdered By: Price Herndon on 01-29-2024 Estimated GFR (MDRD) Amer 95 mL/min >60 [facility] Comment on above: GFR Calc Estimated GFR (MDRD) Non-Af Amer 78 mL/min >60 [facility] Comment on above: Non- GFR Calc RBC Auto (Bld) [#/Vol]Ordere d By: Price Herndon on 01-29-2024 RBC (Bld) [#/Vol] 4.08 10*6/uL 4.6-6.2 [facility] Serum or plasma calcium jake urement (mass/volume)Ordered By: Price eHrndon on 01-29-2024 Calcium [Mass/Vol] 9.2 mg/dL 8.5-10.1 [facility] Serum or plasma creatinine m easurement (mass/volume)Ordered By: Price Herndon on 01-29-2024 Creatinine [Mass/Vol] 0.98 mg/dL 0.70-1.30 [facility] Comment on above: The validity of the calculated GFR & GFRAA in patients over 70 years has not been determined. Clinical correlation is essential. Serum or plasma urea nitroge n measurement (mass/volume)Ordered By: Price Herndon on 01-29-2024 Urea nitrogen [Mass/Vol] 20 mg/dL 7-18 [facility] Thin prep Papanicolaou smear with manual screeningOrdered By: Price Herndon on 01-29-2024 Thin prep Papanicolaou smear with manual screening 6 5-15 [facility] Absolute lymphocyte countOrd ered By: Price Herndon on 06-05-2023 Lymphocytes Auto (Unsp spec) [#/Vol] 1.04 10*3/uL 0.83-4.51 [facility] Basophil percentageOrdered B y: Price Herndon on 06-05-2023 Basophils/100 WBC (Bld) 0.7 % 0-1 [facility] Bilirubin [Mass/Vol] 0.30 mg/dL 0.20-1.00 [facility] Comment on above: For patients on eltr ombopag therapy, use of Dimension [place] TBIL is not recommended. Chloride [Moles/Vol] 105 mmol/L 98-107 [facility] Eosinophils/100 WBC (Bld) 3.0 % 0-5 [facility] Glucose [Mass/Vol] 118 mg/dL 74-106 [facility] Comment on above: Fasting Glucose resu lt from 100 to 125 mg/dL suggests IMPAIRED HOMEOSTASIS per A.D.A. criteria. Neutrophils (Bld) [#/Vol] 2.8 10*3/uL 2.0-7.7 [facility] Neutrophils/100 WBC (Bld) 63.5 % 47-70 [facility] Potassium [Moles/Vol] 4.3 mmol/L 3.5-5.1 [facility] Protein [Mass/Vol] 6.5 g/dL 6.4-8.2 [facility] Sodium [Moles/Vol] 137 mmol/L 136-145 [facility] WBC (Bld) [#/Vol] 4.4 10*3/uL 4.4-11.0 [facility] Blood erythrocytes count (nu mber/volume)Ordered By: Price Herndon on 06-05-2023 RBC (Bld) [#/Vol] 3.53 10*6/uL 4.6-6.2 [facility] Blood hemoglobin measurement (mass/volume)Ordered By: Price Herndon on 06-05-2023 Hemoglobin (Bld) [Mass/Vol] 11.2 g/dL 13.0-16.5 [facility] Blood lymphocytes/100 leukoc ytesOrdered By: Price Herndon on 06-05-2023 Lymphocytes/100 WBC (Bld) 23.7 % 19-41 [facility] Blood monocytes/100 leukocyt esOrdered By: Price Herndon on 06-05-2023 Monocytes/100 WBC (Bld) 8.9 % 0-10 [facility] Blood platelet mean volumeOr dered By: Price Herndon on 06-05-2023 Platelet mean volume (Bld) [Entitic vol] 9.5 fL 6.2-12.0 [facility] Determination of erythrocyte mean corpuscular volume (MCV)Ordered By: Price Herndon on 06-05-2023 MCV (RBC) [Entitic vol] 100.6 fL 80-94 [facility] Hematocrit Auto (Bld) [Volum e fraction]Ordered By: Price Herndon on 06-05-2023 Hematocrit (Bld) [Volume fraction] 35.5 % 40-54 [facility] Laboratory - Chemistry and C hemistry - challengeOrdered By: Price Herndon on 06-05-2023 ALP [Catalytic activity/Vol] 93 U/L 45-117 [facility] ALT [Catalytic activity/Vol] 25 U/L 16-61 [facility] CO2 [Moles/Vol] 25.0 mmol/L 21.0-32.0 [facility] Globulin (S) [Mass/Vol] 3.2 g/dL 2.2-4.2 [facility] Urea nitrogen/Creatinine [Mass ratio] 17.6 mg/mg 10-20 [facility] Laboratory - Hematology and Cell countsOrdered By: Price Herndon on 06-05-2023 Erythrocyte distribution width (RBC) [Entitic vol] 50.8 fL 35.1-43.9 [facility] Erythrocyte distribution width (RBC) [Ratio] 13.8 % 11.6-14.6 [facility] Immature granulocytes/100 WBC (Bld) 0.200 % 0.0-0.9 [facility] Comment on above: IG% - Immature Granu locytes (promyelocytes, myelocytes and metamyelocytes) > 1% indicates that a LEFT SHIFT is Present. MCH (RBC) [Entitic mass] 31.7 pg 27.0-32.0 [facility] Nucleated RBC/100 WBC (Bld) [Ratio] 0 % 0-5 [facility] MCHC Auto (RBC) [Mass/Vol]Or dered By: Price Herndon on 06-05-2023 MCHC (RBC) [Mass/Vol] 31.5 g/dL 32-36 [facility] No Panel InformationOrdered By: Price Herndon on 06-05-2023 Estimated GFR (MDRD) Amer 103 mL/min >60 [facility] Comment on above: GFR Calc Estimated GFR (MDRD) Non-Af Amer 85 mL/min >60 [facility] Comment on above: Non- GFR Calc Thyroid Stimulating Hormone (TSH) 1.72 uIU/mL 0.358-3.74 [facility] Vitamin D 25-Hydroxy 51.1 ng/mL [facility] Comment on above: Vitamin D 25(OH) Sta tus Range Deficiency <20 ng/mL (50nmol/L) Insufficiency 20 - 30 ng/mL (50 - 75 nmol/L) Sufficiency 30 - 100 ng/mL (75 - 250 nmol/L) Toxicity >100 ng/mL (>250 nmol/L) Platelets bldOrdered By: Price Herndon on 06-05-2023 Platelets (Bld) [#/Vol] 238 10*3/uL 150-450 [facility] Serum or plasma albumin jake urement (mass/volume)Ordered By: Price Herndon on 06-05-2023 Albumin [Mass/Vol] 3.3 g/dL 3.2-5.0 [facility] Serum or plasma albumin/glob ulin mass ratioOrdered By: Price Herndon on 06-05-2023 Albumin/Globulin [Mass ratio] 1.0 {ratio} 0.9-2.4 [facility] Serum or plasma calcium jake urement (mass/volume)Ordered By: Price Herndon on 06-05-2023 Calcium [Mass/Vol] 8.9 mg/dL 8.5-10.1 [facility] Serum or plasma creatinine m easurement (mass/volume)Ordered By: Price Herndon on 06-05-2023 Creatinine [Mass/Vol] 0.91 mg/dL 0.70-1.30 [facility] Comment on above: The validity of the calculated GFR & GFRAA in patients over 70 years has not been determined. Clinical correlation is essential. Serum or plasma urea nitroge n measurement (mass/volume)Ordered By: Price Herndon on 06-05-2023 Urea nitrogen [Mass/Vol] 16 mg/dL 7-18 [facility] Thin prep Papanicolaou smear with manual screeningOrdered By: Price Herndon 06-05-2023 Thin prep Papanicolaou smear with manual screening 17 U/L 15-37 [facility] Thin prep Papanicolaou smear with manual screening 7 5-15 [facility] Absolute lymphocyte countOrd ered By: Price Herndon on 05-17-2023 Lymphocytes Auto (Unsp spec) [#/Vol] 1.01 10*3/uL 0.83-4.51 [facility] Basophil percentageOrdered B y: Price Herndon on 05-17-2023 Basophils/100 WBC (Bld) 0.8 % 0-1 [facility] Eosinophils/100 WBC (Bld) 2.9 % 0-5 [facility] Neutrophils (Bld) [#/Vol] 3.2 10*3/uL 2.0-7.7 [facility] Neutrophils/100 WBC (Bld) 66.0 % 47-70 [facility] WBC (Bld) [#/Vol] 4.8 10*3/uL 4.4-11.0 [facility] Blood erythrocytes count (nu mber/volume)Ordered By: Price Herndon on 05-17-2023 RBC (Bld) [#/Vol] 3.30 10*6/uL 4.6-6.2 [facility] Blood hemoglobin measurement (mass/volume)Ordered By: Price Herndon on 05-17-2023 Hemoglobin (Bld) [Mass/Vol] 10.7 g/dL 13.0-16.5 [facility] Blood lymphocytes/100 leukoc ytesOrdered By: Price Herndon on 05-17-2023 Lymphocytes/100 WBC (Bld) 21.1 % 19-41 [facility] Blood monocytes/100 leukocyt esOrdered By: Price Herndon on 05-17-2023 Monocytes/100 WBC (Bld) 9.0 % 0-10 [facility] Blood platelet mean volumeOr dered By: [facility] on 05-17-2023 Platelet mean volume (Bld) [Entitic vol] 8.7 fL 6.2-12.0 [facility] Determination of erythrocyte mean corpuscular volume (MCV)Ordered By: Price Herndon on 05-17-2023 MCV (RBC) [Entitic vol] 101.2 fL 80-94 [facility] Hematocrit Auto (Bld) [Volum e fraction]Ordered By: [facility] on 05-17-2023 Hematocrit (Bld) [Volume fraction] 33.4 % 40-54 [facility] Laboratory - Hematology and Cell countsOrdered By: [facility] on 05-17-2023 Erythrocyte distribution width (RBC) [Entitic vol] 51.0 fL 35.1-43.9 [facility] Erythrocyte distribution width (RBC) [Ratio] 13.6 % 11.6-14.6 [facility] Immature granulocytes/100 WBC (Bld) 0.200 % 0.0-0.9 [facility] Comment on above: IG% - Immature Granu locytes (promyelocytes, myelocytes and metamyelocytes) > 1% indicates that a LEFT SHIFT is Present. MCH (RBC) [Entitic mass] 32.4 pg 27.0-32.0 [facility] Nucleated RBC/100 WBC (Bld) [Ratio] 0 % 0-5 [facility] MCHC Auto (RBC) [Mass/Vol]Or dered By: Price Herndon on 05-17-2023 MCHC (RBC) [Mass/Vol] 32.0 g/dL 32-36 [facility] Platelets bldOrdered By: Price Herndon on 05-17-2023 Platelets (Bld) [#/Vol] 315 10*3/uL 150-450 [facility] Absolute lymphocyte countOrd ered By: Price Herndon on 04-27-2023 Lymphocytes Auto (Unsp spec) [#/Vol] 0.63 10*3/uL 0.83-4.51 [facility] Basophil percentageOrdered B y: Price Herndon on 04-27-2023 Basophils/100 WBC (Bld) 0.5 % 0-1 [facility] Eosinophils/100 WBC (Bld) 1.4 % 0-5 [facility] Neutrophils (Bld) [#/Vol] 5.0 10*3/uL 2.0-7.7 [facility] Neutrophils/100 WBC (Bld) 80.3 % 47-70 [facility] WBC (Bld) [#/Vol] 6.3 10*3/uL 4.4-11.0 [facility] Blood erythrocytes count (nu mber/volume)Ordered By: Price Herndon on 04-27-2023 RBC (Bld) [#/Vol] 3.00 10*6/uL 4.6-6.2 [facility] Blood hemoglobin measurement (mass/volume)Ordered By: Price Herndon on 04-27-2023 Hemoglobin (Bld) [Mass/Vol] 9.9 g/dL 13.0-16.5 [facility] Blood lymphocytes/100 leukoc ytesOrdered By: Price Herndon on 04-27-2023 Lymphocytes/100 WBC (Bld) 10.1 % 19-41 [facility] Blood monocytes/100 leukocyt esOrdered By: Price Herndon on 04-27-2023 Monocytes/100 WBC (Bld) 7.5 % 0-10 [facility] Blood platelet mean volumeOr dered By: Price Herndon on 04-27-2023 Platelet mean volume (Bld) [Entitic vol] 8.9 fL 6.2-12.0 [facility] Determination of erythrocyte mean corpuscular volume (MCV)Ordered By: Price Herndon on 04-27-2023 MCV (RBC) [Entitic vol] 100.3 fL 80-94 [facility] Hematocrit Auto (Bld) [Volum e fraction]Ordered By: Price Herndon on 04-27-2023 Hematocrit (Bld) [Volume fraction] 30.1 % 40-54 [facility] Laboratory - Hematology and Cell countsOrdered By: [facility] Erythrocyte distribution width (RBC) [Entitic vol] 50.4 fL 35.1-43.9 [facility] Erythrocyte distribution width (RBC) [Ratio] 13.7 % 11.6-14.6 [facility] Immature granulocytes/100 WBC (Bld) 0.200 % 0.0-0.9 [facility] Comment on above: IG% - Immature Granu locytes (promyelocytes, myelocytes and metamyelocytes) > 1% indicates that a LEFT SHIFT is Present. MCH (RBC) [Entitic mass] 33.0 pg 27.0-32.0 [facility] Nucleated RBC/100 WBC (Bld) [Ratio] 0 % 0-5 [facility] MCHC Auto (RBC) [Mass/Vol]Or dered By: Price Herndon on 04-27-2023 MCHC (RBC) [Mass/Vol] 32.9 g/dL 32-36 [facility] Platelets bldOrdered By: Price Herndon on 04-27-2023 Platelets (Bld) [#/Vol] 347 10*3/uL 150-450 [facility] Basophil percentageOrdered B y: Burton Quinn on 04-20-2023 WBC (Bld) [#/Vol] 6.2 10*3/uL 4.4-11.0 [facility] Blood erythrocytes count (nu mber/volume)Ordered By: Burton Quinn on 04-20-2023 RBC (Bld) [#/Vol] 3.24 10*6/uL 4.6-6.2 [facility] Blood hemoglobin measurement (mass/volume)Ordered By: Burton Quinn on 04-20-2023 Hemoglobin (Bld) [Mass/Vol] 10.6 g/dL 13.0-16.5 [facility] Blood platelet mean volumeOr dered By: Burton Quinn on 04-20-2023 Platelet mean volume (Bld) [Entitic vol] 9.8 fL 6.2-12.0 [facility] Determination of erythrocyte mean corpuscular volume (MCV)Ordered By: Burton Quinn on 04-20-2023 MCV (RBC) [Entitic vol] 101.2 fL 80-94 [facility] Hematocrit Auto (Bld) [Volum e fraction]Ordered By: Burton Quinn on 04-20-2023 Hematocrit (Bld) [Volume fraction] 32.8 % 40-54 [facility] Laboratory - Hematology and Cell countsOrdered By: Burton Quinn on 04-20-2023 Erythrocyte distribution width (RBC) [Entitic vol] 51.1 fL 35.1-43.9 [facility] Erythrocyte distribution width (RBC) [Ratio] 13.6 % 11.6-14.6 [facility] MCH (RBC) [Entitic mass] 32.7 pg 27.0-32.0 [facility] MCHC Auto (RBC) [Mass/Vol]Or dered By: Burton Quinn on 04-20-2023 MCHC (RBC) [Mass/Vol] 32.3 g/dL 32-36 [facility] Platelets bldOrdered By: Mahin Quinn on 04-20-2023 Platelets (Bld) [#/Vol] 174 10*3/uL 150-450 [facility] Basophil percentageOrdered B y: Burton Quinn on 04-19-2023 Chloride [Moles/Vol] 104 mmol/L 98-107 [facility] Glucose [Mass/Vol] 128 mg/dL 74-106 [facility] Comment on above: Fasting Glucose resu lt greater than or equal to 126 mg/dL suggests DIABETES MELLITUS per A.D.A. criteria. Potassium [Moles/Vol] 4.7 mmol/L 3.5-5.1 [facility] Sodium [Moles/Vol] 137 mmol/L 136-145 [facility] Laboratory - Chemistry and C hemistry - challengeOrdered By: Burton Quinn on 04-19-2023 CO2 [Moles/Vol] 30.0 mmol/L 21.0-32.0 [facility] Urea nitrogen/Creatinine [Mass ratio] 12.7 mg/mg 10-20 [facility] No Panel InformationOrdered By: Burton Quinn on 04-19-2023 Estimated Creatinine Clearance Calc 71.09 ml/min [facility] Estimated GFR (MDRD) Amer 109 mL/min >60 [facility] Comment on above: GFR Calc Estimated GFR (MDRD) Non-Af Amer 90 mL/min >60 [facility] Comment on above: Non- GFR Calc Serum or plasma calcium jake urement (mass/volume)Ordered By: Burton Quinn on 04-19-2023 Calcium [Mass/Vol] 8.7 mg/dL 8.5-10.1 [facility] Serum or plasma creatinine m easurement (mass/volume)Ordered By: Burton Quinn on 04-19-2023 Creatinine [Mass/Vol] 0.87 mg/dL 0.70-1.30 [facility] Comment on above: The validity of the calculated GFR & GFRAA in patients over 70 years has not been determined. Clinical correlation is essential. Serum or plasma urea nitroge n measurement (mass/volume)Ordered By: Burton Quinn on 04-19-2023 Urea nitrogen [Mass/Vol] 11 mg/dL 7-18 [facility] Thin prep Papanicolaou smear with manual screeningOrdered By: Burton Quinn on 04-19-2023 Thin prep Papanicolaou smear with manual screening 3 5-15 [facility] Glucose Glucometer (BldC) [M ass/Vol]Ordered By: Burton Quinn on 04-18-2023 Glucose [Mass/Vol] 137 mg/dL 74-106 [facility] Comment on above: MANAGEMENT OF PATIEN T CARE PER NURSING PROTOCOL Laboratory - Chemistry and C hemistry - challengeOrdered By: Juan Sevilla on 04-12-2023 Magnesium [Mass/Vol] 2.3 mg/dL 1.6-2.6 [facility] No Panel InformationOrdered By: Burton Quinn on 04-12-2023 Fructosamine 239 umol/L 0-285 [facility] Comment on above: Published reference interval for apparently healthysubjects between age 20 and 60 is 205 - 285 umol/L and in apoorly controlled diabetic population is 228 - 563 umol/Lwith a mean of 396 umol/L.Performed at: [facility] [id number] Director: Vivek Llanes PhD, Phone: [phone] Nasal Screen MRSA/MSSA [facility] Whole blood hemoglobin A1c/t otal hemoglobin ratio (mass fraction)Ordered By: Burton Quinn on 04-12-2023 HbA1c (Bld) [Mass fraction] 5.6 % 3.8-5.6 [facility] Comment on above: Normal < 5.7 % Predi abetic 5.7 - 6.4 % Diabetic >or= 6.5 % Please note range changes. Absolute lymphocyte countOrd ered By: Kenzie Iraheta on 03-23-2023 Lymphocytes Auto (Unsp spec) [#/Vol] 1.00 10*3/uL 0.83-4.51 [facility] Basophil percentageOrdered B y: Kenzie Iraheta on 03-23-2023 Basophils/100 WBC (Bld) 1.0 % 0-1 [facility] Bilirubin [Mass/Vol] 0.40 mg/dL 0.20-1.00 [facility] Comment on above: For patients on eltr ombopag therapy, use of Dimension [place] TBIL is not recommended. Chloride [Moles/Vol] 104 mmol/L 98-107 [facility] Eosinophils/100 WBC (Bld) 3.4 % 0-5 [facility] Glucose [Mass/Vol] 112 mg/dL 74-106 [facility] Comment on above: Fasting Glucose resu lt from 100 to 125 mg/dL suggests IMPAIRED HOMEOSTASIS per A.D.A. criteria. Neutrophils (Bld) [#/Vol] 3.5 10*3/uL 2.0-7.7 [facility] Neutrophils/100 WBC (Bld) 68.3 % 47-70 [facility] Potassium [Moles/Vol] 4.3 mmol/L 3.5-5.1 [facility] Protein [Mass/Vol] 6.8 g/dL 6.4-8.2 [facility] Sodium [Moles/Vol] 137 mmol/L 136-145 [facility] WBC (Bld) [#/Vol] 5.1 10*3/uL 4.4-11.0 [facility] Blood erythrocytes count (nu mber/volume)Ordered By: Kenzie Iraheta on 03-23-2023 RBC (Bld) [#/Vol] 3.91 10*6/uL 4.6-6.2 [facility] Blood hemoglobin measurement (mass/volume)Ordered By: Kenzie Iraheta on 03-23-2023 Hemoglobin (Bld) [Mass/Vol] 12.9 g/dL 13.0-16.5 [facility] Blood lymphocytes/100 leukoc ytesOrdered By: Kenzie Iraheta on 03-23-2023 Lymphocytes/100 WBC (Bld) 19.8 % 19-41 [facility] Blood monocytes/100 leukocyt esOrdered By: Kenzie Iraheta on 03-23-2023 Monocytes/100 WBC (Bld) 7.3 % 0-10 [facility] Blood platelet mean volumeOr dered By: Kenzie Iraheta on 03-23-2023 Platelet mean volume (Bld) [Entitic vol] 9.5 fL 6.2-12.0 [facility] Determination of erythrocyte mean corpuscular volume (MCV)Ordered By: Kenzie Iraheta on 03-23-2023 MCV (RBC) [Entitic vol] 99.2 fL 80-94 [facility] Hematocrit Auto (Bld) [Volum e fraction]Ordered By: Kenzie Iraheta on 03-23-2023 Hematocrit (Bld) [Volume fraction] 38.8 % 40-54 [facility] INR in Blood by Coagulation assayOrdered By: Kenzie Iraheta on 03-23-2023 INR Coag (Bld) [Relative time] 1.0 {INR} [facility] Laboratory - Chemistry and C hemistry - challengeOrdered By: Kenzie Iraheta on 03-23-2023 ALP [Catalytic activity/Vol] 85 U/L 45-117 [facility] ALT [Catalytic activity/Vol] 32 U/L 16-61 [facility] CO2 [Moles/Vol] 30.0 mmol/L 21.0-32.0 [facility] Globulin (S) [Mass/Vol] 3.4 g/dL 2.2-4.2 [facility] Urea nitrogen/Creatinine [Mass ratio] 15.0 mg/mg 10-20 [facility] Laboratory - CoagulationOrde red By: Kenzie Iraheta on 03-23-2023 PT Coag (PPP) [Time] 13.4 s 11.7-14.9 [facility] Laboratory - Hematology and Cell countsOrdered By: Kenzie Iraheta on 03-23-2023 Erythrocyte distribution width (RBC) [Entitic vol] 50.4 fL 35.1-43.9 [facility] Erythrocyte distribution width (RBC) [Ratio] 13.8 % 11.6-14.6 [facility] Immature granulocytes/100 WBC (Bld) 0.200 % 0.0-0.9 [facility] Comment on above: IG% - Immature Granu locytes (promyelocytes, myelocytes and metamyelocytes) > 1% indicates that a LEFT SHIFT is Present. MCH (RBC) [Entitic mass] 33.0 pg 27.0-32.0 [facility] Nucleated RBC/100 WBC (Bld) [Ratio] 0 % 0-5 [facility] MCHC Auto (RBC) [Mass/Vol]Or dered By: Kenzie Iraheta on 03-23-2023 MCHC (RBC) [Mass/Vol] 33.2 g/dL 32-36 [facility] No Panel InformationOrdered By: Kenzie Iraheta on 03-23-2023 Estimated GFR (MDRD) Amer 93 mL/min >60 [facility] Comment on above: GFR Calc Estimated GFR (MDRD) Non-Af Amer 77 mL/min >60 [facility] Comment on above: Non- GFR Calc Platelets bldOrdered By: Lizabeth Iraheta on 03-23-2023 Platelets (Bld) [#/Vol] 220 10*3/uL 150-450 [facility] Serum or plasma albumin jake urement (mass/volume)Ordered By: Kenzie Iraheta on 03-23-2023 Albumin [Mass/Vol] 3.4 g/dL 3.2-5.0 [facility] Serum or plasma albumin/glob ulin mass ratioOrdered By: Kenzie Iraheta on 03-23-2023 Albumin/Globulin [Mass ratio] 1.0 {ratio} 0.9-2.4 [facility] Serum or plasma calcium jake urement (mass/volume)Ordered By: Kenzie Iraheta on 03-23-2023 Calcium [Mass/Vol] 9.1 mg/dL 8.5-10.1 [facility] Serum or plasma creatinine m easurement (mass/volume)Ordered By: Kenzie Iraheta on 03-23-2023 Creatinine [Mass/Vol] 1.00 mg/dL 0.70-1.30 [facility] Comment on above: The validity of the calculated GFR & GFRAA in patients over 70 years has not been determined. Clinical correlation is essential. Serum or plasma urea nitroge n measurement (mass/volume)Ordered By: Kenzie Iraheta on 03-23-2023 Urea nitrogen [Mass/Vol] 15 mg/dL 7-18 [facility] Thin prep Papanicolaou smear with manual screeningOrdered By: Kenzie Iraheta on 03-23-2023 Thin prep Papanicolaou smear with manual screening 21 U/L 15-37 [facility] Thin prep Papanicolaou smear with manual screening 3 5-15 [facility] Absolute lymphocyte countOrd ered By: Dr. Greenberg on 02-20-2023 Lymphocytes Auto (Unsp spec) [#/Vol] 0.80 10*3/uL 0.83-4.51 [facility] Basophil percentageOrdered B y: Dr. Greenberg on 02-20-2023 Basophil percentage 0-5 SEEN /hpf 0-5 [facility] Basophils/100 WBC (Bld) 0.4 % 0-1 [facility] Chloride [Moles/Vol] 106 mmol/L 98-107 [facility] Eosinophils/100 WBC (Bld) 2.3 % 0-5 [facility] Glucose [Mass/Vol] 155 mg/dL 74-106 [facility] Comment on above: Fasting Glucose resu lt greater than or equal to 126 mg/dL suggests DIABETES MELLITUS per A.D.A. criteria. Neutrophils (Bld) [#/Vol] 3.6 10*3/uL 2.0-7.7 [facility] Neutrophils/100 WBC (Bld) 73.9 % 47-70 [facility] Potassium [Moles/Vol] 4.7 mmol/L 3.5-5.1 [facility] Sodium [Moles/Vol] 143 mmol/L 136-145 [facility] WBC (Bld) [#/Vol] 4.9 10*3/uL 4.4-11.0 [facility] Bilirubin Test strip Ql (U)O rdered By: Dr. Greenberg on 02-20-2023 Bilirubin Ql (U) 1 mg/dL Negative [facility] Comment on above: COLOR OF URINE MAY A FFECT DIPSTICK RESULTS. Blood erythrocytes count (nu mber/volume)Ordered By: Dr. Greenberg on 02-20-2023 RBC (Bld) [#/Vol] 3.82 10*6/uL 4.6-6.2 [facility] Blood hemoglobin measurement (mass/volume)Ordered By: Dr. Greenberg on 02-20-2023 Hemoglobin (Bld) [Mass/Vol] 12.6 g/dL 13.0-16.5 [facility] Blood lymphocytes/100 leukoc ytesOrdered By: Dr. Greenberg on 02-20-2023 Lymphocytes/100 WBC (Bld) 16.4 % 19-41 [facility] Blood monocytes/100 leukocyt esOrdered By: Dr. Greenberg on 02-20-2023 Monocytes/100 WBC (Bld) 6.6 % 0-10 [facility] Blood platelet mean volumeOr dered By: Dr. Greenberg on 02-20-2023 Platelet mean volume (Bld) [Entitic vol] 8.7 fL 6.2-12.0 [facility] Determination of erythrocyte mean corpuscular volume (MCV)Ordered By: Dr. Greenberg on 02-20-2023 MCV (RBC) [Entitic vol] 100.3 fL 80-94 [facility] Hematocrit Auto (Bld) [Volum e fraction]Ordered By: Dr. Greenberg on 02-20-2023 Hematocrit (Bld) [Volume fraction] 38.3 % 40-54 [facility] Hyaline casts LM.LPF (Urine sed) [#/Area]Ordered By: Dr. Greenberg on 02-20-2023 Hyaline casts (Urine sed) [#/Area] 10 /[LPF] 0-5 [facility] INR in Blood by Coagulation assayOrdered By: Dr. Greenberg on 02-20-2023 INR Coag (Bld) [Relative time] 1.0 {INR} [facility] Ketones Test strip Ql (U)Ord ered By: Dr. Greenberg on 02-20-2023 Ketones Ql (U) 15 mg/dl Negative [facility] Laboratory - Chemistry and C hemistry - challengeOrdered By: Dr. Greenberg on 02-20-2023 CO2 [Moles/Vol] 30.0 mmol/L 21.0-32.0 [facility] Urea nitrogen/Creatinine [Mass ratio] 11.8 mg/mg 10-20 [facility] Laboratory - CoagulationOrde red By: Dr. Greenberg on 02-20-2023 aPTT Coag (Bld) [Time] 26.9 s 24.1-36.2 [facility] PT Coag (PPP) [Time] 13.5 s 11.7-14.9 [facility] Laboratory - Hematology and Cell countsOrdered By: Dr. Greenberg on 02-20-2023 Erythrocyte distribution width (RBC) [Entitic vol] 50.2 fL 35.1-43.9 [facility] Erythrocyte distribution width (RBC) [Ratio] 13.5 % 11.6-14.6 [facility] Immature granulocytes/100 WBC (Bld) 0.400 % 0.0-0.9 [facility] Comment on above: IG% - Immature Granu locytes (promyelocytes, myelocytes and metamyelocytes) > 1% indicates that a LEFT SHIFT is Present. MCH (RBC) [Entitic mass] 33.0 pg 27.0-32.0 [facility] Nucleated RBC/100 WBC (Bld) [Ratio] 0 % 0-5 [facility] MCHC Auto (RBC) [Mass/Vol]Or dered By: Dr. Greenberg on 02-20-2023 MCHC (RBC) [Mass/Vol] 32.9 g/dL 32-36 [facility] Mucus LM Ql (Urine sed)Order ed By: Dr. Greenberg on 02-20-2023 Mucus Ql (Urine sed) 0 SEEN /hpf [facility] Nitrite Test strip Ql (U)Ord ered By: Dr. Greenberg on 02-20-2023 Nitrite Ql (U) Positive Negative [facility] No Panel InformationOrdered By: Dr. Greenberg on 02-20-2023 Troponin I High Sensitivity 7 pg/mL 3.0-78.0 [facility] Comment on above: Please Note: [place] t Units and Gender Specific Reference Ranges. For more information see Policy Stat Procedure [place] High Sensitivity Troponin (TNIH) and attachments. D-Dimer Quantitative (PE/DVT) 0.62 FEU/ug/m 0.27-0.49 [facility] Comment on above: CRITICAL VALUE VERIF IED. CALLED TO ANASTACIO STAFFORD RN ER02/20/23 1625 Santiago Conner.RESULTS READ BACK BY SAME . D-Dimer ELEVATED (>0.49): Additional studies and clinicalassessments are indicated to conclude diagnosis of:Deep Vein Thrombosis (DVT) or Pulmonary Embolism (PE) Estimated Creatinine Clearance Calc 51.97 ml/min [facility] Estimated GFR (MDRD) Amer 76 mL/min >60 [facility] Comment on above: GFR Calc Estimated GFR (MDRD) Non-Af Amer 63 mL/min >60 [facility] Comment on above: Non- GFR Calc Platelets bldOrdered By: Dr. Greenberg on 02-20-2023 Platelets (Bld) [#/Vol] 180 10*3/uL 150-450 [facility] Protein Test strip Ql (U)Ord ered By: Dr. Greenberg on 02-20-2023 Protein Ql (U) 30 mg/dl Negative [facility] Serum or plasma calcium jake urement (mass/volume)Ordered By: Dr. Greenberg on 02-20-2023 Calcium [Mass/Vol] 9.3 mg/dL 8.5-10.1 [facility] Serum or plasma creatinine m easurement (mass/volume)Ordered By: Dr. Greenberg on 02-20-2023 Creatinine [Mass/Vol] 1.19 mg/dL 0.70-1.30 [facility] Comment on above: The validity of the calculated GFR & GFRAA in patients over 70 years has not been determined. Clinical correlation is essential. Serum or plasma urea nitroge n measurement (mass/volume)Ordered By: Dr. Greenberg on 02-20-2023 Urea nitrogen [Mass/Vol] 14 mg/dL 7-18 [facility] Squamous epithelial cells de tection in urine sediment by light microscopyOrdered By: Dr. Greenberg on 02-20-2023 Epithelial cells.squamous LM Ql (Urine sed) 0 SEEN /hpf 0-5 [facility] Thin prep Papanicolaou smear with manual screeningOrdered By: Dr. Greenberg on 02-20-2023 Thin prep Papanicolaou smear with manual screening 7 5-15 [facility] Urine blood detectionOrdered By: Dr. Greenberg on 02-20-2023 RBC Ql (U) 10 /ul Negative [facility] RBC Ql (U) 0 SEEN /hpf 0-5 [facility] Urine clarityOrdered By: Dr. Greenberg on 02-20-2023 Clarity (U) Clear Clear [facility] Urine color determinationOrd ered By: Dr. Greenberg on 02-20-2023 Color (U) Janelle Yellow [facility] Urine glucose detectionOrder ed By: Dr. Greenberg on 02-20-2023 Glucose Ql (U) Normal mg/dl Normal [facility] Urine leukocyte esterase det ection by dipstickOrdered By: Dr. Greenberg on 02-20-2023 Leukocyte esterase Test strip Ql (U) 25 /ul Negative [facility] Urine pHOrdered By: Dr. Lance maldonado on 02-20-2023 pH (U) 5.0 [pH] 5.0 - 8.0 [facility] Urine sediment bacteria coun t by microscopy (number/high power field)Ordered By: Dr. Greenberg on 02-20-2023 Bacteria LM.HPF (Urine sed) [#/Area] 0 /[HPF] None Seen [facility] Urine specific gravity measu rementOrdered By: Dr. Greenberg on 02-20-2023 Specific gravity (U) [Rel density] 1.030 1.002-1.030 [facility] Urobilinogen Auto test strip Ql (U)Ordered By: Dr. Greenberg on 02-20-2023 Urobilinogen Ql (U) 4 mg/dl Normal [facility] Absolute lymphocyte countOrd ered By: Dr. Herndon on 01-24-2023 Lymphocytes Auto (Unsp spec) [#/Vol] 1.13 10*3/uL 0.83-4.51 [facility] Basophil percentageOrdered B y: Dr. Herndon on 01-24-2023 Basophils/100 WBC (Bld) 0.9 % 0-1 [facility] Bilirubin [Mass/Vol] 0.50 mg/dL 0.20-1.00 [facility] Comment on above: For patients on eltr ombopag therapy, use of Dimension [place] TBIL is not recommended. Chloride [Moles/Vol] 103 mmol/L 98-107 [facility] Eosinophils/100 WBC (Bld) 7.3 % 0-5 [facility] Glucose [Mass/Vol] 108 mg/dL 74-106 [facility] Comment on above: Fasting Glucose resu lt from 100 to 125 mg/dL suggests IMPAIRED HOMEOSTASIS per A.D.A. criteria. Neutrophils (Bld) [#/Vol] 2.6 10*3/uL 2.0-7.7 [facility] Neutrophils/100 WBC (Bld) 58.1 % 47-70 [facility] Potassium [Moles/Vol] 3.9 mmol/L 3.5-5.1 [facility] Protein [Mass/Vol] 6.7 g/dL 6.4-8.2 [facility] Sodium [Moles/Vol] 139 mmol/L 136-145 [facility] WBC (Bld) [#/Vol] 4.5 10*3/uL 4.4-11.0 [facility] Blood erythrocytes count (nu mber/volume)Ordered By: Dr. Herndon on 01-24-2023 RBC (Bld) [#/Vol] 4.16 10*6/uL 4.6-6.2 [facility] Blood hemoglobin measurement (mass/volume)Ordered By: Dr. Herndon on 01-24-2023 Hemoglobin (Bld) [Mass/Vol] 13.4 g/dL 13.0-16.5 [facility] Blood lymphocytes/100 leukoc ytesOrdered By: Dr. Herndon on 01-24-2023 Lymphocytes/100 WBC (Bld) 24.9 % 19-41 [facility] Blood monocytes/100 leukocyt esOrdered By: Dr. Herndon on 01-24-2023 Monocytes/100 WBC (Bld) 8.8 % 0-10 [facility] Blood platelet mean volumeOr dered By: Dr. Herndon on 01-24-2023 Platelet mean volume (Bld) [Entitic vol] 10.0 fL 6.2-12.0 [facility] Determination of erythrocyte mean corpuscular volume (MCV)Ordered By: Dr. Herndon on 01-24-2023 MCV (RBC) [Entitic vol] 100.2 fL 80-94 [facility] Hematocrit Auto (Bld) [Volum e fraction]Ordered By: Dr. Herndon on 01-24-2023 Hematocrit (Bld) [Volume fraction] 41.7 % 40-54 [facility] Laboratory - Chemistry and C hemistry - challengeOrdered By: Dr. Herndon on 01-24-2023 ALP [Catalytic activity/Vol] 82 U/L 45-117 [facility] ALT [Catalytic activity/Vol] 40 U/L 16-61 [facility] CO2 [Moles/Vol] 31.0 mmol/L 21.0-32.0 [facility] Cobalamin (Vitamin B12) [Mass/Vol] 1091 pg/mL 211-911 [facility] Globulin (S) [Mass/Vol] 3.2 g/dL 2.2-4.2 [facility] Urea nitrogen/Creatinine [Mass ratio] 15.3 mg/mg 10-20 [facility] Laboratory - Hematology and Cell countsOrdered By: Dr. Herndon on 01-24-2023 Erythrocyte distribution width (RBC) [Entitic vol] 52.3 fL 35.1-43.9 [facility] Erythrocyte distribution width (RBC) [Ratio] 14.0 % 11.6-14.6 [facility] Immature granulocytes/100 WBC (Bld) 0.000 % 0.0-0.9 [facility] Comment on above: IG% - Immature Granu locytes (promyelocytes, myelocytes and metamyelocytes) > 1% indicates that a LEFT SHIFT is Present. MCH (RBC) [Entitic mass] 32.2 pg 27.0-32.0 [facility] Nucleated RBC/100 WBC (Bld) [Ratio] 0 % 0-5 [facility] MCHC Auto (RBC) [Mass/Vol]Or dered By: Dr. Herndon on 01-24-2023 MCHC (RBC) [Mass/Vol] 32.1 g/dL 32-36 [facility] No Panel InformationOrdered By: Dr. Herndon on 01-24-2023 Estimated GFR (MDRD) Amer 95 mL/min >60 [facility] Comment on above: GFR Calc Estimated GFR (MDRD) Non-Af Amer 79 mL/min >60 [facility] Comment on above: Non- GFR Calc Thyroid Stimulating Hormone (TSH) 1.05 uIU/mL 0.358-3.74 [facility] Vitamin D 25-Hydroxy 52.7 ng/mL [facility] Comment on above: Vitamin D 25(OH) Sta tus Range Deficiency <20 ng/mL (50nmol/L) Insufficiency 20 - 30 ng/mL (50 - 75 nmol/L) Sufficiency 30 - 100 ng/mL (75 - 250 nmol/L) Toxicity >100 ng/mL (>250 nmol/L) Platelets bldOrdered By: Dr. Herndon on 01-24-2023 Platelets (Bld) [#/Vol] 231 10*3/uL 150-450 [facility] Serum or plasma albumin jake urement (mass/volume)Ordered By: Dr. Herndon on 01-24-2023 Albumin [Mass/Vol] 3.5 g/dL 3.2-5.0 [facility] Serum or plasma albumin/glob ulin mass ratioOrdered By: Dr. Herndon on 01-24-2023 Albumin/Globulin [Mass ratio] 1.1 {ratio} 0.9-2.4 [facility] Serum or plasma calcium jake urement (mass/volume)Ordered By: Dr. Herndon on 01-24-2023 Calcium [Mass/Vol] 9.1 mg/dL 8.5-10.1 [facility] Serum or plasma creatinine m easurement (mass/volume)Ordered By: Dr. Herndon on 01-24-2023 Creatinine [Mass/Vol] 0.98 mg/dL 0.70-1.30 [facility] Comment on above: The validity of the calculated GFR & GFRAA in patients over 70 years has not been determined. Clinical correlation is essential. Serum or plasma urea nitroge n measurement (mass/volume)Ordered By: Dr. Herndon on 01-24-2023 Urea nitrogen [Mass/Vol] 15 mg/dL 7-18 [facility] Thin prep Papanicolaou smear with manual screeningOrdered By: Dr. Herndon on 01-24-2023 Thin prep Papanicolaou smear with manual screening 26 U/L 15-37 [facility] Thin prep Papanicolaou smear with manual screening 5 5-15 [facility] Laboratory - Microbiology an d Antimicrobial susceptibilityon 09-05-2022 SARS-CoV-2 (COVID-19) RNA AMY+probe Ql (Unsp spec) Not detected Not Detect [facility] Work Phone: Comment on above: Normal Reference [...] spec) [#/Vol] 1.55 10*3/uL 0.83-4.51 [facility] Work Phone: Basophil percentageon 2021 Basophils/100 WBC (Bld) 0.4 % 0-1 [facility] Work Phone: Bilirubin [Mass/Vol] 0.40 mg/dL 0.20-1.00 [facility] Work Phone: Comment on above: For patients on eltr ombopag therapy, use of Dimension [place] TBIL is not recommended. Chloride [Moles/Vol] 101 mmol/L 98-107 [facility] Work Phone: Eosinophils/100 WBC (Bld) 4.6 % 0-5 [facility] Work Phone: Glucose [Mass/Vol] 96 mg/dL 74-106 [facility] Work Phone: Neutrophils (Bld) [#/Vol] 2.4 10*3/uL 2.0-7.7 [facility] Work Phone: Neutrophils/100 WBC (Bld) 51.0 % 47-70 [facility] Work Phone: Potassium [Moles/Vol] 4.5 mmol/L 3.5-5.1 [facility] Work Phone: Protein [Mass/Vol] 6.8 g/dL 6.4-8.2 [facility] Work Phone: Sodium [Moles/Vol] 138 mmol/L 136-145 [facility] Work Phone: WBC (Bld) [#/Vol] 4.8 10*3/uL 4.4-11.0 [facility] Work Phone: Blood erythrocytes count (nu mber/volume)on 05-25-2022 RBC (Bld) [#/Vol] 4.01 10*6/uL 4.6-6.2 [facility] Work Phone: Blood hemoglobin measurement (mass/volume)on 05-25-2022 Hemoglobin (Bld) [Mass/Vol] 13.4 g/dL 13.0-16.5 [facility] Work Phone: Blood lymphocytes/100 leukoc yteson 05-25-2022 Lymphocytes/100 WBC (Bld) 32.5 % 19-41 [facility] Work Phone: Blood monocytes/100 leukocyt eson 05-25-2022 Monocytes/100 WBC (Bld) 11.3 % 0-10 [facility] Work Phone: Blood platelet mean volumeon 05-25-2022 Platelet mean volume (Bld) [Entitic vol] 10.0 fL 6.2-12.0 [facility] Work Phone: Determination of erythrocyte mean corpuscular volume (MCV)on 05-25-2022 MCV (RBC) [Entitic vol] 99.5 fL 80-94 [facility] Work Phone: Hematocrit Auto (Bld) [Volum e fraction]on 05-25-2022 Hematocrit (Bld) [Volume fraction] 39.9 % 40-54 [facility] Work Phone: Laboratory - Chemistry and C hemistry - challengeon 05-25-2022 ALP [Catalytic activity/Vol] 80 U/L 45-117 [facility] Work Phone: ALT [Catalytic activity/Vol] 36 U/L 16-61 [facility] Work Phone: CO2 [Moles/Vol] 33.0 mmol/L 21.0-32.0 [facility] Work Phone: [phone] Globulin (S) [Mass/Vol] 3.4 g/dL 2.2-4.2 [facility] Work Phone: Urea nitrogen/Creatinine [Mass ratio] 15.7 mg/mg 10-20 [facility] Work Phone: Laboratory - Hematology and Cell countson 05-25-2022 Erythrocyte distribution width (RBC) [Entitic vol] 50.4 fL 35.1-43.9 [facility] Work Phone: Erythrocyte distribution width (RBC) [Ratio] 13.8 % 11.6-14.6 [facility] Work Phone: Immature granulocytes/100 WBC (Bld) 0.200 % 0.0-0.9 [facility] Work Phone: [phone] Comment on above: IG% - Immature Granu locytes (promyelocytes, myelocytes and metamyelocytes) > 1% indicates that a LEFT SHIFT is Present. MCH (RBC) [Entitic mass] 33.4 pg 27.0-32.0 [facility] Work Phone: [phone] Nucleated RBC/100 WBC (Bld) [Ratio] 0 % 0-5 [facility] Work Phone: [phone] MCHC Auto (RBC) [Mass/Vol]on 05-25-2022 MCHC (RBC) [Mass/Vol] 33.6 g/dL 32-36 [facility] Work Phone: [phone] No Panel Informationon 05-25 Estimated GFR (MDRD) Amer 91 mL/min >60 [facility] Work Phone: [phone] Comment on above: GFR Calc Estimated GFR (MDRD) Non-Af Amer 75 mL/min >60 [facility] Work Phone: [phone] Comment on above: Non- GFR Calc Thyroid Stimulating Hormone (TSH) 1.44 uIU/mL 0.358-3.74 [facility] Work Phone: [phone] Vitamin D 25-Hydroxy 32.5 ng/mL [facility] Work Phone: [phone] Comment on above: Vitamin D 25(OH) Sta tus Range Deficiency <20 ng/mL (50nmol/L) Insufficiency 20 - 30 ng/mL (50 - 75 nmol/L) Sufficiency 30 - 100 ng/mL (75 - 250 nmol/L) Toxicity >100 ng/mL (>250 nmol/L) Platelets bldon 05-25-2022 Platelets (Bld) [#/Vol] 206 10*3/uL 150-450 [facility] Work Phone: [phone] Serum or plasma albumin jake urement (mass/volume)on 05-25-2022 Albumin [Mass/Vol] 3.4 g/dL 3.2-5.0 [facility] Work Phone: [phone] Serum or plasma albumin/glob ulin mass ratioon 05-25-2022 Albumin/Globulin [Mass ratio] 1.0 {ratio} 0.9-2.4 [facility] Work Phone: [phone] Serum or plasma calcium jake urement (mass/volume)on 05-25-2022 Calcium [Mass/Vol] 8.8 mg/dL 8.5-10.1 [facility] Work Phone: [phone] Serum or plasma creatinine m easurement (mass/volume)on 05-25-2022 Creatinine [Mass/Vol] 1.02 mg/dL 0.70-1.30 [facility] Work Phone: [phone] Comment on above: The validity of the calculated GFR & GFRAA in patients over 70 years has not been determined. Clinical correlation is essential. Serum or plasma urea nitroge n measurement (mass/volume)on 05-25-2022 Urea nitrogen [Mass/Vol] 16 mg/dL 7-18 [facility] Work Phone: [phone] Thin prep Papanicolaou smear with manual screeningon 05-25-2022 Thin prep Papanicolaou smear with manual screening 23 U/L 15-37 [facility] Work Phone: [phone] Thin prep Papanicolaou smear with manual screening 4 5-15 [facility] Work Phone: [phone] Absolute lymphocyte counton 01-12-2022 Lymphocytes Auto (Unsp spec) [#/Vol] 1.38 10*3/uL 0.83-4.51 [facility] Work Phone: [phone] Basophil percentageon 2021 Basophils/100 WBC (Bld) 0.7 % 0-1 [facility] Work Phone: [phone] Bilirubin [Mass/Vol] 0.60 mg/dL 0.20-1.00 [facility] Work Phone: [phone] Comment on above: For patients on eltr ombopag therapy, use of Dimension [place] TBIL is not recommended. Chloride [Moles/Vol] 102 mmol/L 98-107 [facility] Work Phone: Eosinophils/100 WBC (Bld) 4.0 % 0-5 [facility] Work Phone: Glucose [Mass/Vol] 129 mg/dL 74-106 [facility] Work Phone: Comment on above: Fasting Glucose resu lt greater than or equal to 126 mg/dL suggests DIABETES MELLITUS per A.D.A. criteria. Neutrophils (Bld) [#/Vol] 3.8 10*3/uL 2.0-7.7 [facility] Work Phone: Neutrophils/100 WBC (Bld) 63.6 % 47-70 [facility] Work Phone: Potassium [Moles/Vol] 3.7 mmol/L 3.5-5.1 [facility] Work Phone: Protein [Mass/Vol] 7.2 g/dL 6.4-8.2 [facility] Work Phone: Sodium [Moles/Vol] 138 mmol/L 136-145 [facility] Work Phone: WBC (Bld) [#/Vol] 6.0 10*3/uL 4.4-11.0 [facility] Work Phone: Blood erythrocytes count (nu mber/volume)on 01-12-2022 RBC (Bld) [#/Vol] 4.09 10*6/uL 4.6-6.2 [facility] Work Phone: Blood hemoglobin measurement (mass/volume)on 01-12-2022 Hemoglobin (Bld) [Mass/Vol] 13.3 g/dL 13.0-16.5 [facility] Work Phone: [phone] Blood lymphocytes/100 leukoc yteson 01-12-2022 Lymphocytes/100 WBC (Bld) 23.1 % 19-41 [facility] Work Phone: Blood monocytes/100 leukocyt eson 01-12-2022 Monocytes/100 WBC (Bld) 8.4 % 0-10 [facility] Work Phone: [phone] Blood platelet mean volumeon 01-12-2022 Platelet mean volume (Bld) [Entitic vol] 10.0 fL 6.2-12.0 [facility] Work Phone: [phone] Determination of erythrocyte mean corpuscular volume (MCV)on 01-12-2022 MCV (RBC) [Entitic vol] 97.6 fL 80-94 [facility] Work Phone: [phone] Hematocrit Auto (Bld) [Volum e fraction]on 01-12-2022 Hematocrit (Bld) [Volume fraction] 39.9 % 40-54 [facility] Work Phone: [phone] Laboratory - Chemistry and C hemistry - challengeon 01-12-2022 ALP [Catalytic activity/Vol] 75 U/L 45-117 [facility] Work Phone: [phone] ALT [Catalytic activity/Vol] 38 U/L 16-61 [facility] Work Phone: [phone] CO2 [Moles/Vol] 29.0 mmol/L 21.0-32.0 [facility] Work Phone: [phone] Globulin (S) [Mass/Vol] 3.5 g/dL 2.2-4.2 [facility] Work Phone: [phone] Urea nitrogen/Creatinine [Mass ratio] 19.0 mg/mg 10-20 [facility] Work Phone: [phone] Laboratory - Hematology and Cell countson 01-12-2022 Erythrocyte distribution width (RBC) [Entitic vol] 47.8 fL 35.1-43.9 [facility] Work Phone: [phone] Erythrocyte distribution width (RBC) [Ratio] 13.3 % 11.6-14.6 [facility] Work Phone: [phone] Immature granulocytes/100 WBC (Bld) 0.200 % 0.0-0.9 [facility] Work Phone: [phone] Comment on above: IG% - Immature Granu locytes (promyelocytes, myelocytes and metamyelocytes) > 1% indicates that a LEFT SHIFT is Present. MCH (RBC) [Entitic mass] 32.5 pg 27.0-32.0 [facility] Work Phone: [phone] Nucleated RBC/100 WBC (Bld) [Ratio] 0 % 0-5 [facility] Work Phone: [phone] MCHC Auto (RBC) [Mass/Vol]on 01-12-2022 MCHC (RBC) [Mass/Vol] 33.3 g/dL 32-36 [facility] Work Phone: No Panel Informationon 01-12 Estimated GFR (MDRD) Amer 88 mL/min >60 [facility] Work Phone: [phone] Comment on above: GFR Calc Estimated GFR (MDRD) Non-Af Amer 73 mL/min >60 [facility] Work Phone: [phone] Comment on above: Non- GFR Calc Thyroid Stimulating Hormone (TSH) 1.22 uIU/mL 0.358-3.74 [facility] Work Phone: [phone] Vitamin D 25-Hydroxy 45.5 ng/mL [facility] Work Phone: [phone] Comment on above: Vitamin D 25(OH) Sta tus Range Deficiency <20 ng/mL (50nmol/L) Insufficiency 20 - 30 ng/mL (50 - 75 nmol/L) Sufficiency 30 - 100 ng/mL (75 - 250 nmol/L) Toxicity >100 ng/mL (>250 nmol/L) Platelets bldon 01-12-2022 Platelets (Bld) [#/Vol] 227 10*3/uL 150-450 [facility] Work Phone: [phone] Serum or plasma albumin jake urement (mass/volume)on 01-12-2022 Albumin [Mass/Vol] 3.7 g/dL 3.2-5.0 [facility] Work Phone: [phone] Serum or plasma albumin/glob ulin mass ratioon 01-12-2022 Albumin/Globulin [Mass ratio] 1.1 {ratio} 0.9-2.4 [facility] Work Phone: [phone] Serum or plasma calcium jake urement (mass/volume)on 01-12-2022 Calcium [Mass/Vol] 9.1 mg/dL 8.5-10.1 [facility] Work Phone: Serum or plasma creatinine m easurement (mass/volume)on 01-12-2022 Creatinine [Mass/Vol] 1.05 mg/dL 0.70-1.30 [facility] Work Phone: Comment on above: The validity of the calculated GFR & GFRAA in patients over 70 years has not been determined. Clinical correlation is essential. Serum or plasma urea nitroge n measurement (mass/volume)on 01-12-2022 Urea nitrogen [Mass/Vol] 20 mg/dL 7-18 [facility] Work Phone: Thin prep Papanicolaou smear with manual screeningon 01-12-2022 Thin prep Papanicolaou smear with manual screening 21 U/L 15-37 [facility] Work Phone: Thin prep Papanicolaou smear with manual screening 7 5-15 [facility] Work Phone: No Panel Information Influenza Types A,B Direct FA (LIZABETH) [facility] Work Phone: RSV Ag EIA RSV Ag Immune stain Ql (Tiss) [facility] Work Phone: Vital Signs Date Time Vital Sign Value Performing Clinician Faci lity 05-09-2025 10:37-0400 Diastolic blood pressure 74 mm[Hg] Dr. Price Herndon MD Work Phone: [facility] [place] [facility] 05-09-2025 10:37-0400 Heart rate 97 /min Dr. Price Herndon MD Work Phone: [facility] [place] [facility] 05-09-2025 10:37-0400 Respiratory rate 18 /min Dr. Price Herndon MD Work Phone: [facility] 05-09-2025 10:37-0400 SaO2% (BldA) [Mass fraction] 94 % Dr. Price Herndon MD Work Phone: [facility] [place] [facility] 05-09-2025 10:37-0400 Systolic blood pressure 147 mm[Hg] Dr. Price Herndon MD Work Phone: [facility] [place] [facility] 05-01-2025 10:25-0400 Diastolic blood pressure 73 mm[Hg] Dr. Price Herndon MD Work Phone: [facility] [place] [facility] 05-01-2025 10:25-0400 Heart rate 81 /min Dr. Price Herndon MD Work Phone: [facility] [place] [facility] 05-01-2025 10:25-0400 Respiratory rate 18 /min Dr. Price Herndon MD Work Phone: [facility] [place] [facility] 05-01-2025 10:25-0400 SaO2% (BldA) [Mass fraction] 96 % Dr. Price Herndon MD Work Phone: [facility] [place] [facility] 05-01-2025 10:25-0400 Systolic blood pressure 145 mm[Hg] Dr. Price Herndon MD Work Phone: 5(137)181-999111 [place] [address] 04-23-2025 15:14-0400 Diastolic blood pressure 75 mm[Hg] Dr. Price Herndon MD Work Phone: [facility] [place] [facility] 04-23-2025 15:14-0400 Heart rate 83 /min Dr. Price Herndon MD Work Phone: [facility] [place] [facility] 04-23-2025 15:14-0400 Respiratory rate 18 /min Dr. Price Herndon MD Work Phone: [facility] [place] [facility] 04-23-2025 15:14-0400 SaO2% (BldA) [Mass fraction] 92 % Dr. Price Herndon MD Work Phone: [facility] [place] [facility] 04-23-2025 15:14-0400 Systolic blood pressure 127 mm[Hg] Dr. Price Herndon MD Work Phone: 6(484)955-781111 [place] [address] 04-07-2025 17:03-0400 Body height 177.[address] Price Herndon MD Work Phone: [facility] [place] [facility] 04-07-2025 17:03-0400 Body mass index (BMI) [Ratio] 38.2 kg/m2 Dr. Price Herndon MD Work Phone: 7(635)443-347511 [place] [address] 04-07-2025 17:03-0400 Body weight 121.[address] Price Herndon MD Work Phone: 7(009)159-746313 [place] [address] 03-20-2025 08:26-0400 Body height 177.[address] Price Herndon MD Work Phone: 2(869)799-104713 [place] [address] 03-20-2025 08:26-0400 Body mass index (BMI) [Ratio] 38.1 kg/m2 Dr. Price Herndon MD Work Phone: 5(545)171-914113 [place] [address] 03-20-2025 08:26-0400 Body weight 120.[address] Price Herndon MD Work Phone: 4(346)732-094913 [place] [address] 03-20-2025 08:26-0400 Diastolic blood pressure 70 mm[Hg] Dr. Price Herndon MD Work Phone: 7(483)363-485313 [place] [address] 03-20-2025 08:26-0400 Heart rate 47 /min Dr. Price Herndon MD Work Phone: 4(890)162-517713 [place] [address] 03-20-2025 08:26-0400 Respiratory rate 18 /min Dr. Price Herndon MD Work Phone: 2(085)028-940613 [place] [address] 03-20-2025 08:26-0400 Systolic blood pressure 112 mm[Hg] Dr. Price Herndon MD Work Phone: 6(000)805-358813 [place] [address] 04-20-2023 08:57-0400 Body temperature 98.3 [degF] Dr. Price Herndon Work Phone: 0(273)026-461513 [place] [address] 04-20-2023 08:57-0400 Diastolic blood pressure 80 mm[Hg] Dr. Price Herndon Work Phone: 0(291)690-288613 [place] [address] 04-20-2023 08:57-0400 Heart rate 88 /min Dr. Price Herndon Work Phone: 4(584)363-634713 [place] [address] 04-20-2023 08:57-0400 Respiratory rate 18 /min Dr. Price Herndon Work Phone: 3(174)100-155211 [place] [address] 04-20-2023 08:57-0400 SaO2% (BldA) [Mass fraction] 95 % Dr. Price Herndon Work Phone: [facility] [place] [facility] 04-20-2023 08:57-0400 Systolic blood pressure 153 mm[Hg] Dr. Price Herndon Work Phone: [facility] [place] [facility] 04-18-2023 13:28-0400 Body height 177.[address] Price Herndon Work Phone: 9(739)289-269011 [place] [address] 04-18-2023 13:28-0400 Body mass index (BMI) [Ratio] 37.1 kg/m2 Dr. Price Herndon Work Phone: 6(868)160-747711 [place] [address] 04-18-2023 13:28-0400 Body weight 117.[address] Price Herndon Work Phone: 1(079)073-858713 [place] [address] 04-18-2023 12:49-0400 Inhaled oxygen flow rate 4 L/min Dr. Price Herndon Work Phone: 2(909)599-030311 [place] [address] 03-31-2023 10:42-0400 Body height 177.[address] Price Herndon Work Phone: 2(153)088-299711 [place] [address] 03-31-2023 10:42-0400 Body weight 117.[address] Price Herndon Work Phone: 5(251)173-247511 [place] [address] 03-30-2023 08:42-0400 Body mass index (BMI) [Ratio] 37 kg/m2 Dr. rPice Herndon Work Phone: 2(079)164-931711 [place] [address] 03-23-2023 09:30-0400 Body mass index (BMI) [Ratio] 37 kg/m2 Dr. Price Herndon Work Phone: 2(970)101-460611 [place] [address] 03-23-2023 09:30-0400 Body weight 117.[address] Price Herndon Work Phone: [facility] [place] [facility] 03-23-2023 09:30-0400 Diastolic blood pressure 73 mm[Hg] Dr. Price Herndon Work Phone: [facility] [place] [facility] 03-23-2023 09:30-0400 Heart rate 74 /min Dr. Price Herndon Work Phone: [facility] [place] [facility] 03-23-2023 09:30-0400 Respiratory rate 18 /min Dr. Price Herndon Work Phone: [facility] [place] [facility] 03-23-2023 09:30-0400 SaO2% (BldA) [Mass fraction] 97 % Dr. Price Herndon Work Phone: [facility] [place] [facility] 03-23-2023 09:30-0400 Systolic blood pressure 125 mm[Hg] Dr. Price Herndon Work Phone: [facility] [place] [facility] 02-23-2023 09:13-0400 Body weight 117.[address] Price Herndon Work Phone: 3(905)439-117911 [place] [address] 02-23-2023 09:13-0400 Diastolic blood pressure 74 mm[Hg] Dr. Price Herndon Work Phone: 2(533)114-366511 [place] [address] 02-23-2023 09:13-0400 Heart rate 82 /min Dr. Price Herndon Work Phone: [facility] [place] [facility] 02-23-2023 09:13-0400 Respiratory rate 18 /min Dr. Price Herndon Work Phone: [facility] [place] [facility] 02-23-2023 09:13-0400 Systolic blood pressure 128 mm[Hg] Dr. Price Herndon Work Phone: [facility] [place] [facility] 02-20-2023 19:54-0400 Diastolic blood pressure 57 mm[Hg] Dr. Price Herndon Work Phone: [facility] [place] [facility] 02-20-2023 19:54-0400 Heart rate 72 /min Dr. Price Herndon Work Phone: [facility] [place] [facility] 02-20-2023 19:54-0400 Respiratory rate 15 /min Dr. Price Herndon Work Phone: [facility] [place] [facility] 02-20-2023 19:54-0400 SaO2% (BldA) [Mass fraction] 96 % Dr. Price Herndon Work Phone: [facility] [place] [facility] 02-20-2023 19:54-0400 Systolic blood pressure 116 mm[Hg] Dr. Price Herndon Work Phone: [facility] [place] [facility] 02-20-2023 15:20-0400 Body mass index (BMI) [Ratio] 36.8 kg/m2 Dr. Price Herndon Work Phone: [facility] [place] [facility] 02-20-2023 15:20-0400 Body weight 116.[address] Price Herndon Work Phone: [facility] [place] [facility] 02-20-2023 15:03-0400 Body height 177.[address] Price Herndon Work Phone: [facility] [place] [facility] 02-20-2023 15:03-0400 Body temperature 97.4 [degF] Dr. Price Herndon Work Phone: [facility] [place] [facility] 02-06-2023 09:25-0400 Body mass index (BMI) [Ratio] 38 kg/m2 Dr. Price Herndon Work Phone: [facility] [place] [facility] 02-06-2023 09:25-0400 Body weight 120.[address] Price Herndon Work Phone: [facility] [place] [facility] 09-05-2022 09:16-0500 Body height 177.[address] Price Herndon Work Phone: [facility] [place] [facility] Work Phone: 09-05-2022 09:16-0500 Body mass index (BMI) [Ratio] 38.1 kg/m2 Dr. Price Herndon Work Phone: [facility] [place] [facility] Work Phone: 09-05-2022 09:16-0500 Body weight 120.[address] Price Herndon Work Phone: [facility] [place] [facility] Work Phone: 09-05-2022 09:16-0500 Diastolic blood pressure 65 mm[Hg] Dr. Price Herndon Work Phone: [facility] [place] [facility] Work Phone: 09-05-2022 09:16-0500 Heart rate 89 /min Dr. Price Herndon Work Phone: [facility] [place] [facility] Work Phone: 09-05-2022 09:16-0500 Respiratory rate 16 /min Dr. Price Herndon Work Phone: [facility] [place] [facility] Work Phone: 09-05-2022 09:16-0500 Systolic blood pressure 144 mm[Hg] Dr. Price Herndon Work Phone: [facility] [place] [facility] Work Phone: 01-19-2022 11:26-0400 Body height 177.[address] Price Herndon Work Phone: [facility] [place] [facility] Work Phone: 01-19-2022 11:26-0400 Body weight [address] Price Herndon Work Phone: [facility] [place] [facility] Work Phone: 01-19-2022 11:26-0400 Diastolic blood pressure 64 mm[Hg] Dr. Price Herndon Work Phone: [facility] [place] [facility] Work Phone: 01-19-2022 11:26-0400 Heart rate 76 /min Dr. Price Herndon Work Phone: [facility] [place] [facility] Work Phone: 01-19-2022 11:26-0400 Respiratory rate 18 /min Dr. Price Herndon Work Phone: [facility] [place] [facility] Work Phone: 01-19-2022 11:26-0400 Systolic blood pressure 120 mm[Hg] Dr. Price Herndon Work Phone: [facility] [place] [facility] Work Phone: 04-01-2021 15:24-0400 Body mass index (BMI) [Ratio] 37.6 kg/m2 Dr. Price Herndon Work Phone: [facility] [place] [facility] Work Phone: Encounters Encounter Date Encounter Type Care Provider Facility Start: 07-31-2025 End: 07-31-2025 ambulatory PAULETTE JEROME Facility:[facility] Start: 07-24-2025 ambulatory Price Chi Yanick Facility:[facility] Start: 07-15-2025 End: 07-15-2025 ambulatory GENEVA O'MURALI Facility:[facility] Start: 07-08-2025 End: 07-08-2025 ambulatory GENEVA O'MURALI Facility:[facility] Start: 07-07-2025 End: 07-07-2025 ambulatory CORNELIUS JEDLICKA Facility:[facility] Start: 07-07-2025 End: 07-07-2025 ambulatory CORNELIUS JEDLICKA Facility:[facility] Start: 07-04-2025 ambulatory MARVIN ITIN Facility:[facility] Start: 06-23-2025 End: 06-23-2025 ambulatory JOHN UNRULY Facility:[facility] Start: 06-21-2025 End: 06-21-[address] Price Herndon MD Work Phone: [facility] Start: 06-21-2025 End: 06-21-[address] Saul Brush MD -[facility] Work Phone: Start: 06-12-2025 End: 06-12-[address] Price Herndon MD Work Phone: -Cardiovascular Services Start: 06-12-2025 End: 06-12-[address] Price Herndon MD -Card[facility]ovascular Services Work Phone: Start: 06-12-2025 End: 06-12-2025 ambulatory Price Herndon Facility:[facility] Start: 05-22-2025 End: 05-22-[address] Price Herndon MD Work Phone: -[facility] Start: 05-22-2025 End: 05-22-[address] Saul Brush MD -[facility] Work Phone: Start: 05-09-2025 End: 05-09-[address] Sushil Stafford MD -[facility] Work Phone: Start: 05-09-2025 End: 05-09-[address] Price Herndon MD Work Phone: -[facility] Start: 05-01-2025 End: 05-01-[address] Sushil Stafford MD -[facility] Work Phone: Start: 05-01-2025 End: 05-01-[address] Price Herndon MD Work Phone: -[facility] Start: 04-24-2025 End: 04-24-[address] Price Herndon MD Work Phone: -Laboratory Specimen Start: 04-24-2025 End: 04-24-[address] Sushil Stafford MD -Laboratory Specimen Work Phone: Start: 04-23-2025 End: 04-23-[address] Sushil Stafford MD -[facility] Work Phone: Start: 04-23-2025 End: 04-24-[address] Price Herndon MD Work Phone: -[facility] Start: 04-22-2025 End: 04-22-[address] Price Herndon MD Work Phone: -[facility] Start: 04-22-2025 End: 04-22-[address] Saul Brush MD -[facility] Work Phone: Start: 04-07-2025 End: 04-07-[address] Sushil Stafford MD -[facility] Work Phone: Start: 04-07-2025 End: 04-07-[address] Price Herndon MD Work Phone: [facility] Start: 03-23-2025 End: 03-23-[address] Price Herndon MD Work Phone: -[facility] Start: 03-23-2025 End: 03-23-[address] Saul Brush MD -[facility] Work Phone: Start: 03-21-2025 End: 03-21-2025 Telephone encounter John Tolliver MD Work Phone: [facility] Comment on above: NPH Referral/Dr. Price Herndon Start: 03-20-2025 End: 03-20-2025 Patient encounter procedure Kenzie POOLE -[facility] Work Phone: Start: 03-20-2025 End: 03-20-[address] Price Herndon MD Work Phone: [facility] Work Phone: Start: 03-17-2025 End: 03-17-[address] Price Herndon MD Work Phone: [facility] Start: 03-17-2025 End: 03-17-[address] Price Herndon MD [facility] Work Phone: Start: 03-17-2025 End: 03-17-2025 ambulatory Price Herndon Facility:[facility] Start: 02-21-2025 End: 02-21-[address] Price Herndon MD Work Phone: [facility] Work Phone: Start: 02-21-2025 End: 02-21-[address] Saul Brush MD -[facility] Work Phone: Start: 02-20-2025 End: 02-20-[address] Price Herndon MD Work Phone: [facility] Work Phone: Start: 02-20-2025 End: 02-20-[address] Price Herndon MD -Physical Therapy Work Phone: Start: 05-07-[address] Price reyes MD -Physical Therapy Work Phone: Start: 01-23-2025 End: 01-23-[address] Price Herndon MD Work Phone: [facility] Work Phone: Start: 01-23-2025 End: 01-23-[address] Price Herndon MD -Laboratory Work Phone: Start: 01-22-2025 End: 01-23-2025 ambulatory Price Chi Yanick Facility:[facility] Start: 01-22-2025 End: 01-22-[address] Saul Brush MD -[facility] Work Phone: Start: 12-23-2024 End: 12-23-2024 ambulatory Price Chi Yanick Facility:[facility] Start: 12-23-2024 End: 12-23-[address] Saul Brush MD -[facility] Work Phone: Start: 11-23-2024 End: 11-23-2024 ambulatory Price Chi Yanick Facility:[facility] Start: 11-23-2024 End: 11-23-[address] Saul Brush MD -[facility] Work Phone: Start: 10-24-2024 End: 10-24-2024 ambulatory Saul Brush Facility:[facility] Start: 10-24-2024 End: 10-24-[address] Saul Brush MD -[facility] Work Phone: Start: 09-24-2024 End: 09-24-2024 ambulatory Price Chi Yanick Facility:[facility] Start: 09-02-2024 End: 09-02-2024 ambulatory KAREN SOMERS DO Facility:[facility] Start: 09-02-2024 End: 09-02-2024 Patient encounter procedure KAERN SOMERS DO [facility] Start: 08-25-2024 End: 08-25-2024 ambulatory Price Chi Yanick Facility:[facility] Start: 08-08-2024 End: 08-08-2024 ambulatory Price Chi Yanick Facility:[facility] Start: 07-26-2024 End: 07-26-2024 ambulatory [place] Brush Facility:[facility] Start: 01-29-2024 End: 01-29-[address] Price Herndon Work Phone: [facility] Work Phone: Start: 01-29-2024 End: 01-29-[address] Price Herndon Work Phone: [facility]-Radiology, [facility] Work Phone: Start: 01-28-2024 End: 01-28-[address] Price Herndon Work Phone: [facility] Work Phone: Start: 12-29-2023 End: 12-29-[address] Price Herndon Work Phone: [facility] Work Phone: Start: 11-29-2023 End: 11-29-[address] Price Herndon Work Phone: [facility] Work Phone: Start: 10-30-2023 End: 10-30-[address] Price Herndon Work Phone: [facility] Work Phone: Start: 06-16-2023 End: 06-16-[address] Price Herndon Work Phone: [facility] Work Phone: Start: 06-16-2023 End: 06-16-[address] Price Herndon Work Phone: [facility]-Physical Therapy Work Phone: Start: 06-12-[address] Price alas Work Phone: [facility]-Physical Therapy Work Phone: Start: 06-05-2023 End: 06-05-[address] Price Herndon Work Phone: [facility] Work Phone: Start: 06-05-2023 End: 06-05-[address] Price Herndon Work Phone: [facility] 3rd Flr Start: 05-31-2023 End: 05-31-[address] Price Herndon Work Phone: [facility] Work Phone: Start: 05-22-[address] Price alas Work Phone: [facility]-Physical Therapy Work Phone: Start: 05-17-2023 End: 05-17-[address] Price Herndon Work Phone: [facility] Work Phone: Start: 05-17-2023 End: 05-17-[address] [facility] Hern[facility] Work Phone: Start: 05-05-[address] Price alas Work Phone: [facility]-Physical Therapy Work Phone: Start: 05-02-[address] Price alas Work Phone: [facility]-Physical Therapy Work Phone: Start: 05-01-2023 Non-patient / Non-visit Dr. Brendan Herndon Work Phone: [facility] Start: 05-01-2023 End: 05-01-[address] Price Herndon Work Phone: [facility] Work Phone: Start: 05-01-2023 End: 05-01-[address] Price Herndon [facility]: [facility] Work [facility]: Start: 05-01-2023 End: 05-01-[address] Price Herndon Work Phone: [facility] Work Phone: Start: 04-27-2023 End: 04-27-[address] Price Herndon Work Phone: [facility] Work Phone: Start: 04-27-2023 End: 04-27-[address] Price Herndon Work Phone: [facility]-Laboratory, Phy Office 3rd Flr Start: 04-21-2023 End: 04-21-[address] Price Herndon Work Phone: [facility] Work Phone: Start: 04-21-2023 Non-patient / Non-visit Dr. Brendan Herndon Work Phone: [facility] Start: 04-20-2023 Non-patient / Non-visit [facility] Brendan Herndon [facility] Start: 04-19-2023 Non-patient / Non-visit Dr. Brendan Herndon Work Phone: [facility] Start: 04-18-2023 Non-patient / Non-visit Dr. Brendan Herndon Work Phone: [facility] Start: 04-18-2023 End: 04-20-2023 Evaluation and management of inpatient Dr. Price Herndon Work Phone: [facility]-Medical Surgical 3 Work Phone: Start: 04-11-2023 End: 04-11-[address] Price Herndon Work Phone: [facility] Work Phone: Start: 04-11-2023 End: 04-11-[address] Price Herndon Work Phone: [facility]-Physical Therapy Work Phone: Start: 04-11-[address] Price alas Work Phone: [facility]-Physical Therapy Work Phone: Start: 04-07-2023 End: 04-07-[address] Price Herndon Work Phone: [facility] Work Phone: Start: 03-31-2023 End: 03-31-2023 Admission to same day surgery center Dr. 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 Price Herndon Work Phone: [facility] Work Phone: Start: 03-25-2023 End: 03-25-[address] Price Herndon Work Phone: [facility] Work Phone: Start: 03-25-2023 End: 03-25-[address] Price Herndon Work Phone: [facility]-Cat Scan, [facility] Work Phone: Start: 03-23-2023 End: 03-23-[address] Price Herndon Work Phone: [facility] Work Phone: Start: 03-23-2023 End: 03-23-[address] Price Herndon Work Phone: [facility]-Laboratory, Specimen Work Phone: Start: 03-23-[address] Price alas [facility]: Start: 03-23-2023 End: 03-23-[address] Price Herndon Work Phone: [facility] Work Phone: Start: 03-20-2023 Non-patient / Non-visit Dr. Brendan Herndon Work Phone: [facility] Start: 03-20-2023 End: 03-20-[address] Price Herndon Work Phone: [facility] Work Phone: Start: 02-23-2023 End: 02-23-[address] Price Herndon Work Phone: [facility] Work Phone: Start: 02-20-2023 End: 02-20-2023 Emergency department patient visit Dr. Price Herndon Work Phone: [facility]-Emergency Department Start: 02-20-2023 End: 02-20-2023 Patient encounter procedure Haylee Watts PA-C Work Phone: [facility] Comment on above: Syncope, unspecified syncope type (Primary Dx) Start: 02-17-[address] Price alas Work Phone: [facility]-Physical Therapy Start: 02-06-2023 End: 02-06-[address] Price Herndon Work Phone: [facility] Start: 01-24-2023 End: 01-24-[address] Price Herndon Work Phone: [facility]-Laboratory, Phy Office 3rd Flr Start: 09-05-2022 End: 09-05-[address] Price Herndon Work Phone: [facility] Work Phone: Start: 09-05-2022 End: 09-05-[address] Price Herndon Work Phone: [facility] Start: 05-25-2022 End: 05-25-2022 ambulatory [facility] Work Phone: Start: 05-25-2022 End: 05-25-2022 Patient encounter procedure [facility]-Laboratory, y Office 3rd Flr Start: 01-19-2022 End: 01-19-[address] Price Herndon Work Phone: [facility] Start: 01-12-2022 End: 01-12-[address] Price Herndon [facility] Procedures Date Procedure [...] 03-25-2023 MRI of lower extremity Dr. Price Herndon Work Phone: Start: 03-20-2023 Cardiovascular stres s test using pharmacologic stress agent Dr. Price Herndno Work Phone: Start: 02-20-2023 Plain chest X-ray Dr. Karla Herndon Work Phone: Start: 02-20-2023 CT of head without contrast Dr. Price Herndon Work Phone: Start: 02-06-2023 Radiologic examinati on of knee Dr. Price Herndon Work Phone: Start: 01-24-2023 X-ray of lumbosacral spine Dr. Price Herndon Work Phone: Start: 01-24-2023 Radiologic examinati on [...] DTaP,Tdap,Td Vaccine (2 - Td or Tdap) [facility] Start: 06-23-2025 End: 06-23-2025 Patient encounter procedure [facility] Comment on above: consult for NPH per [facility] Neew consult for NPH per [facility] Start: 05-26-2025 Influenza vaccination Influenz a Vaccine (Season Ended) [facility] Start: 09-25-2024 Advance Directive Discussion Advance Directive Discussion [facility] Start: 05-26-2024 Covid-19 Vaccine ( season) Covid-19 Vaccine () [facility] Start: 04-20-2023 Patient discharge [facility] Start: 04-18-2023 Incentive spirometry [facility] Start: 04-18-2023 Following clinical pathway protocol [facility] Start: 04-18-2023 Application of intermittent pneumatic compression device [facility] Start: 04-18-2023 Provision of overbed trapeze [facility] Start: 04-18-2023 Admission procedure [facility] Start: 04-18-2023 Recommendation to continue with treatment [facility] Start: 04-18-2023 Ambulation therapy management [facility] Start: 04-18-2023 Application of device [facility] Start: 04-18-2023 Application of elast ic bandage [facility] Start: 04-18-2023 Assessment of risk o f venous thromboembolism [facility] Start: 04-18-2023 Catheterization of vein [facility] Start: 04-18-2023 Exercises [facility] Start: 04-18-2023 Following clinical pathway protocol [facility] Start: 04-18-2023 Introduction of urin zeeshan catheter [facility] Start: 04-18-2023 Measuring intake and output [facility] Start: 04-18-2023 Neurovascular assessment [facility] Start: 04-18-2023 Patient education [facility] Start: 04-18-2023 Procedure discontinued [facility] Start: 04-18-2023 Provision of activit y privileges [facility] Start: 04-18-2023 Referral to occupati onal therapist [facility] Start: 04-18-2023 Referral to service [facility] Start: 04-18-2023 Vital signs measurements [facility] Start: 04-18-2023 Wound care [facility] Start: 04-18-2023 [facility] Start: 03-31-2023 Patient discharge [facility] Start: 09-25-2022 ADVANCE DIRECTIVE DISCUSSION ADVANCE DIRECTIVE DISCUSSION [facility] Start: 09-25-2022 DEPRESSION ASSESSMENT DEPRESSION ASS ESSMENT [facility] Start: 02-03-2021 COVID-19 VACCINE (3 - Booster for Moderna series) COVID-19 VACCINE (3 - Booster for Moderna series) [facility] Start: 12-04-2018 RSV Vaccine (1 - 1-d ose 75+ series) RSV Vaccine (1 - 1-dose 75+ series) [facility] Start: 06-25-2014 Pneumococcal Vaccine : 50+ (2 of 2 - PCV) Pneumococcal Vaccine: 50+ (2 of 2 - PCV) [facility] Start: 12-04-2008 PNEUMOCOCCAL: 65+ (1 - PCV) PNEUMOCOCCAL: 65+ (1 - PCV) [facility] Start: 04-01-2006 DIABETES SCREEN DIABETES SCREEN [facility] Start: 04-01-2006 Diabetes Screening Diabetes Screenin g [facility] Start: 12-04-1993 SHINGRIX VACCINE (1 of 2) SORIANO GRIX VACCINE (1 of 2) [facility] Start: 12-04-1962 Urine microalbumin profile DTAP,TDAP,TD (1 - Tdap) [facility] Start: 12-04-1961 Anxiety Screening Anxiety Screening [facility] Start: 12-04-1961 Depression Screening Depression Scre ening [facility] Patient Education ED Fainting, U ncertain Cause [facility] Work Phone: Patient referral [facility] Work Phone: [facility], pulse generator [facility] Immunizations Immunization Date Immunization Notes Care Provider Fa tata 04-25-2022 influenza virus vaccine, unspecified formulation John Tolliver MD Work Phone: [facility] 01-12-2022 Covid (Moderna) Dr. Price Herndon Work Phone: [facility] 07-07-2021 Covid (Moderna) Dr. Price Herndon Work Phone: [facility] 05-12-2021 influenza, injectabl e, quadrivalent, preservative free Dr. Price Herndon Work Phone: [facility] 05-12-2021 influenza, seasonal, injectable Dr. Price Herndon Work Phone: [facility] 12-09-2020 Covid (Moderna) Dr. Price Herndon Work Phone: [facility] 11-11-2020 Covid (Moderna) Dr. Price Herndon Work Phone: [facility] 05-05-2020 influenza, injectabl e, quadrivalent, preservative free Dr. Price Herndon Work Phone: [facility] 05-05-2020 influenza, seasonal, injectable Dr. Price Herndon Work Phone: [facility] 05-17-2017 influenza, injectabl e, quadrivalent, preservative free Dr. Price Herndon Work Phone: [facility] 05-17-2017 influenza, seasonal, injectable Dr. Price Herndon Work Phone: [facility] 06-25-[address] Price Herndon Work Phone: [facility] Work Phone: 06-25-2013 pneumococcal vaccine , unspecified formulation Dr. Price Herndon Work Phone: [facility] 04-01-2013 pneumococcal conjuga te vaccine, [address] Price Herndon Work Phone: [facility] 09-27-2006 hepatitis A vaccine, pediatric/adolescent dosage, [address] Price Herndon Work Phone: [facility] Payers Date Payer Category Payer Self-pay [id number] 2016 [facility] [employer] DICALEXANDRA SUPPLEMENT [id number] 2016 Unknown ANTHEM ANTHEM ME DICARE SUPPLEMENT [id number] 2016-Present [phone] [address] [place] [address] Indemnity [id number] 2014 Unknown [id number] 2008 Medicare [id number] 2008 Medicare [id number] 1945 Unknown [id number] .[id number] Unknown VA AUTH REQUIR ED SEE NOTE [id number] Unknown [id number] .462 Unknown [id number] .462 Unknown [id number] 2.0.1.725605.3.579.2 .462 Unknown [id number] 2.840.1.565004.3.579.2 .462 Unknown [id number] 2.840.1.493833.3.579.2 .462 Unknown [id number] .0.1.428687.3.579.2 .462 Unknown [id number] 2.16.840.1.560248.3.579.2 .462 Unknown [id number] 2.16.840.1.274688.3.579.2 .462 Unknown [id number] 2.16.840.1.954446.3.579.2 .462 Unknown [id number] 2.16.840.1.458139.3.579.2 .462 Unknown [id number] 2.16840.1.715134.3.579.2 .462 Unknown [id number] 2.16.840.1.123769.3.579.2 .462 Unknown [id number] 2.840.1.843994.3.579.2 .462 Unknown [id number] 2.840.1.496855.3.579.2 .462 Unknown [id number] 2.840.1.297476.3.579.2 .462 Unknown [id number] 2.840.1.485505.3.579.2 .462 Unknown [id number] 2.840.1.436032.3.579.2 .462 Unknown [id number] 2.16840.1.024228.3.579.2 .462 Unknown [id number] 2.840.1.756392.3.579.2 .462 Unknown [id number] 2.840.1.960983.3.579.2 .462 Unknown [id number] 2.16840.1.006118.3.579.2 .462 Unknown [id number] 2.16.840.1.601014.3.579.2 .462 Unknown [id number] 2.16.840.1.642949.3.579.2 .462 Unknown [id number] 2.16840.1.439169.3.579.2 .462 Unknown [id number] 2.16.840.1.146597.3.579.2 .462 Unknown [id number] 2.16.840.1.252764.3.579.2 .462 Social History Date Type Detail Facility Start: 01-19-2022 End: 07-12-2023 Tobacco smoking status NHIS Unknown if ever smoked [facility] Start: 06-14-2014 Rare [facility] Start: 06-14-2014 None [facility] Start: 06-14-2014 Spouse/ Signif icant Other [facility] Start: 06-14-2014 Non-smoker [facility] Start: 1945 Sex Assigned At Male [facility] Start: 09-07-2017 End: 07-12-2023 Tobacco smoking status NHIS Never smoked tobacco [facility] Start: 09-07-2017 Tobacco use and exposure Smokeless tobacco non-user [facility] Start: 09-07-2017 Alcohol intake 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 (finding) [facility] Start: 1945 Sex Assigned At Not on file [facility] [place] Start: 08-20-2020 End: 09-01-2020 History of Social function [facility] Start: 08-20-2020 End: 09-01-2020 Tobacco use panel [facility] Work Phone: National Score (1-100), lower number is lower risk Not on file [facility] Medical Equipment Procedure Code Equipment Code Equipment Origin al Text Equipment Identifier Dates Implantable card iac monitor [id number] [id number] FDA Start: 03-31-2023 ([id number]) Metal-backed pat amber prosthesis ()[id number] [id number] [id number] FDA Start: 04-18-2023 ([id number]) Coated knee femu r prosthesis ()[id number] [id number] )[id number] FDA Start: 04-18-2023 ([id number]) Coated knee tibi a prosthesis ()[id number] [id number])[id number] FDA Start: 04-18-2023 ([id number]) Tibial insert [id number] [id number] 1)[id number] FDA Start: 04-18-2023 Goals Date Patient Goal Desired Activity /State Functional Status Date Assessment Result Facility 04-20-2023 Functional status Ambulates [facility] Work Phone: Mental Status Date Assessment Result Facility 04-19-2023 Cognitive function Voice/Name [facility] Work Phone: 02-20-2023 Cognitive function Level Of Cons ciousness Awake;Alert;Appropriate;Follow s Commands [facility] Work Phone: Clinical Notes 02-20-2023 to 07-31-2025 Telephone Encounter - Doron Olivarez RN - 03/21/2025 10:28 AM EDTTelephone Encounter - Doron Olivarez RN - 03/21/2025 10:28 AM EDT Note Date & Type Note Facility 07-31-2025 Note HNO ID: [id number] Author: PAULETTE JEROME MD Service: ? Author Type: Physician Type: Progress Notes Filed: 07/31/2025 20:16 Note Text: SPINE SURGERY NEW PATIENT PCP: Price Viera (Historical) Yanick (Inactive) REFERRING PROVIDER: John Tolliver [address] [place] [id number] Subjective CHIEF COMPLAINT: Right sided LBP, difficulty [...] emergent medical care immediately after use.Disp:one 2-pack w/first aid trainer). MULTIVITAMIN TAB Take one(1) tablet daily. isosorbide mononitrate(IMDUR 30 MG 24 HR TAB) Take one(1) tablet daily. penicillin V potassium (VEETIDS) 250 mg/5 mL suspension Bring to office for oral graded dose challenge (Patient not taking: Reported on 07/31/2025) COMPOUNDED PRESCRIPTION If patient presents with allergic or anaphylactic reaction, draw a serum tryptase. Fax results to Dr. Hurd at [phone] albuterol HFA (PROVENTIL HFA, VENTOLIN HFA) 90 [...] exam GAIT: An (more content not included)... [facility] 07-31-2025 Note HNO ID: [id number] Author: JUSTIN GERMAN RT(R) Service: Radiology Author [...] PATIENT PRESENTS WITH AN IMPLANTABLE OR ATTACHED MOVING CONSULTANT: No RADIOLOGY DEPARTMENT: General X-ray: Exam(s) Completed: Spine X-Ray(s): Lumbar FLEX/EXT and Scoliosis Series best images possible PERIPHERAL IV DATA: Not applicable SIGNED BY: RT Erasto(R) July 31, 2025 3:45 PM [facility] 07-15-2025 Note HNO ID: [id number] Author: GENEVA MOTLEY, MICHELE Service: ? Author [...] 07/15/2025 and treatment included: Therapeutic exercise and Self-nursing home management. Goals for Episode of Care: established 07/08/25 Goals updated on 07/15/2025. Patient will report no falls. -- NOT MET Improve score on Timed Up and Go Test to 10 seconds to reflect decreased fall risk.-- NOT MET Improve score on 30 Second Chair Stand to 10 repetitions to reflect decreased fall risk. -- NOT MET [place] in home exercise program including cardiovascular exercise. [...] of ADL, and ROM and function . Self-Detention Management: 1: discussed continue TA activation in [...] Stop Time : [address] Motley, PT [facility] 07-14-2025 Note HNO ID: [id number] Author: MIMI MARTIN PA-C Service: ? Author Type: Physician Casing Tester Type: Progress Notes Filed: 07/14/2025 13:57 Note Text: Per Triage: Adolfo Rivrea is a 79 year old male that [...] is available for review Mimi Martin PA-C [facility] 07-11-2025 Note HNO ID: [id number] Author: ?, ?, ? Service: ? Author Type: ? Type: Progress Notes Filed: 07/14/2025 13:57 Note Text: Patient name: Adolfo Rivera Are you being referred by a [facility] Spine Health Provider or Pain Management Provider at [facility]? No If answer is "YES" please [...] the facility where the MRI/CT/myelogram was completed: [facility] MRI/CT/myelogram viewable in Epic: Yes If not, please provide [phone] to fax in imaging reports for review. [...] the injections and/or physical therapy was completed [facility] PT- [facility] Have you tried any other kinds of [...] where the surgery was completed: Additional Comments [phone] [facility] 07-08-2025 Note HNO ID: [id number] Author: GENEVA MOTLEY, PT Service: ? Author [...] 10 repetitions to reflect decreased fall risk. [place] in home exercise program including cardiovascular exercise. [...] of Visits Planned: 6 Planned Treatment Interventions: Self-nursing home management (89360), Gait Training (10213), Therapeutic activities (11701), Manual therapy (01771), Neuromuscular re-education (67164), Therapeutic exercise (27403) PLAN FOR NEXT VISIT: assess pt. ability [...] half of respondents (more content not included)... [facility] 07-07-2025 Note HNO ID: [id number] Author: DEVENDRA ANTHONY MD Service: ? Author [...] extending past the knee. He has tried rn wound care and physical therapy in the past without [...] and orphenadrine. Topr (more content not included)... [facility] 07-07-2025 Note HNO ID: [id number] Author: CORNELIUS WOODS MD Service: ? Author Type: Physician Type: Progress Notes Filed: 07/08/2025 13:46 Note Text: [facility] STAFF PHYSICIAN NOTE OF PERSONAL [...] which included preparing to see the patient, [id number] patient care, completing clinical documentation, obtaining and/or [...] medical record or letter via US mail [facility] 07-04-2025 Note HNO ID: [id number] Author: ALIREZA PINA RT(R) Service: ? Author [...] PATIENT PRESENTS WITH AN IMPLANTABLE OR ATTACHED MOVING CONSULTANT: No RADIOLOGY DEPARTMENT: MR; Exam(s) Completed: Head: Routine Brain Spine: Lumbar spine. Anesthesia: No. Aromatherapy Administered: No PERIPHERAL IV DATA: Not applicable SIGNED BY: RT Arlene(R) July 04, 2025 1:22 PM [facility] 06-23-2025 Note HNO ID: [id number] Author: JOHN TOLLIVER MD Service: ? Author [...] tryptase. Fax results to Dr. Hurd at [phone] albuterol HFA (PROVENTIL HFA, VENTOLIN HFA) 90 mcg/actuation inhaler Inhale 2 Puffs as instructed every 4 hours as needed (for cough, wheezing, chest tightness or shortness of breath. Use with spacer. ). (Patient not taking: Reported on 06/23/2025) EPINEPHrine (EPIPEN) 0.3 mg/0.3 mL auto-injector Inject 0.3 mL intramuscularly as needed (for allergic reaction.Seek emergent medical care immediately after use.Disp:one 2-pack w/first aid trainer). MULTIVITAMIN TAB Take one(1) tablet daily. [...] CV: Denies history of chest pain, prior NM's, palpitations, heart failure, murmurs,, circulatory problems, leg [...] bilaterally CN XII (more content not included)... [facility] 06-23-2025 Note HNO ID: [id number] Author: MARVIN BLISS MD Service: ? Author Type: Physician Type: Progress Notes Filed: 06/23/2025 11:38 Note Text: [facility] - NEW PATIENT EVALUATION Recording using ambient Tabber software for draft documentation of the visit was discussed with the patient/authorized sales representative business courses; all questions welcomed and answered. Patient/authorized sales representative business courses agreed to proceed Primary Care Provider: Price Viera (Historical) Yanick (Inactive) 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 - Brain MRI: Findings suggestive of hydrocephalus (extra CSF). - Lumbar spine MRI: Spinal stenosis. - Insertable cardiac exercise physiologist (loop recorder): No specific arrhythmia documented to [...] Chewing and sw (more content not included)... [facility] 03-21-2025 Telephone encounter Note Triaged, message sent to supervisor front requesting patient be contact to schedule movement/nsgy consult. Asked that they request patient bring all brain imaging to upcoming appointments. Doron Olivarez RN [facility] Work Phone: 03-21-2025 Miscellaneous Notes Triaged, message sent to supervisor front requesting patient be contact to schedule movement/nsgy consult. Asked that they request patient bring all brain imaging to upcoming appointments. Doron Olivarez RN Referral received from Dr. Jolly Herndon/[facility] for NPH (copy in scanned docs). documented in this encounter [facility] 03-21-2025 Telephone encounter Note Referral received from Dr. Jolly Herndon/Adult [facility] for NPH (copy in scanned docs). [facility] 03-20-2025 Evaluation note Diagnosis Onset Date Resolution Edema acute March 20 8:08am Implantable loop recorder present acute March 20, 2025 8:08am Essential hypertension chronic 2024 8:08am Nonsustained ventricular tachycardia chronic February 8:08am [facility] Work Phone: [phone]) [phone] Evaluation note* Diagnosis Onset Date Resolution Status Admit Date Edema acute March 20 8:08am Implantable loop recorder present acute March 20, 2025 8:08am Essential hypertension chronic 2024 8:08am Nonsustained ventricular tachycardia chronic March 20, 2025 8:08am Neoplasm of uncertain behavi or of skin acute April 07, 2025 3:39pm [facility] Work Phone: [phone]) 106-837706-26-2025 Evaluation note* Diagnosis Onset Date Resolution Status Admit Date Edema acute March 20 8:08am Implantable loop recorder present acute March 20, 2025 8:08am Essential hypertension chronic Ju ne 2024 8:08am Nonsustained ventricular tachycardia chronic March 20, 2025 8:08am Neoplasm of uncertain behavi or of skin acute April 07, 2025 3:39pm Neoplasm of uncertain behavi or of skin acute April 23, 2025 2:42pm [facility] Work Phone: 1([phone]) 443-998706-26-2025 Evaluation note* Diagnosis Onset Date Resolution Status [...] acute May 01, 2025 9:55am [facility] Work Phone: [phone]) 514-254306-26-2025 Evaluation note* Diagnosis Onset Date Resolution Status [...] or of skin acute May 09 10:27am [facility] Work Phone: [phone]) 601-473806-26-2025 [facility] [address] [place], [place] [id number] OFFICE VISIT Date of Service: 03/20/25 MR#: [id number] Acct: [id number] Name: ADOLFO RIVERA MELBA Rep #: [id number] : 1945 Provider: ZULEMA Moore Age/Sex: 79/M Location[facility] Status: Signed HPI HPI History of Present [...] is being referred to a neurosurgeon in [place]. notes that he has edema and does [...] Monitor Intake Visit Reasons: 1 Y FU Cordwood Cutter Required: No Accompanied by: Is patient in [...] Yes (3 in november tripped (dx: hydrocephalus)) [facility] Medical History Implantable loop recorder present Wears hearing aid Wears partial dentures Arthritis Back pain Gastric reflux Non-smoker Shortness of breath on exertion History of pain when walking History of edema History of echocardiogram History of stress test Hypertension Cardiology follow-up encounter Syncope Pure hypercholesterolemia Essential hypertension Hiatal hernia Asthma Atherosclerotic heart disease of [place] coronary artery without angina pectoris Long-term use [...] cp Plan Details Follow 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 Price Herndon MD ~ [facility]06-26-2025 Progress note Author Kenzie Iraheta [facility] Note Date/Time March 20, 2025 9:15 am [facility] [address] [place] [address]. [address] [place] [address] OFFICE VISIT Date of Service: 03/20/25 MR#: [id number] Acct: [id number] Name: ADOLFO RIVERA Rep #: [id number] : 1945 Provider: ZULEMA Moore Age/Sex: 79/M Location: [facility] Status: Signed HPI HPI History of Present [...] is being referred to a neurosurgeon in [place]. notes that he has edema and does [...] Monitor Intake Visit Reasons: 1 Y FU Cordwood Cutter Required: No Accompanied by: Is patient in [...] Yes (3 in november tripped (dx: hydrocephalus)) [facility] Medical History Implantable loop recorder present Wears hearing aid Wears partial dentures Arthritis Back pain Gastric reflux Non-smoker Shortness of breath on exertion History of pain when walking History of edema History of echocardiogram History of stress test Hypertension Cardiology follow-up encounter Syncope Pure hypercholesterolemia Essential hypertension Hiatal hernia Asthma Atherosclerotic heart disease of [place] coronary artery without angina pectoris Long-term use [...] cp Plan Details Follow 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 Price Herndon MD ~ [facility] Work Phone: 1([phone]) 970-641105-29-2025 Discharge summary Author Bob Mcmahan [facility] Note Date/Time February 20, 2025 7:00p m [facility] Physical Therapy [facility] [address] [place] [address] / REHABILITATION SERVICES DISCHARGE SUMMARY MR#: [id number] Acct: [id number] Name: ADOLFO RIVERA Rep #: [id number] [...] please feel free to call me at [phone]. Thank you for the referral of thispatient. Sincerely, Bob Mcmahan PT, Cert T, OCS Balance/Gait/Functional tests Balance/Special Test Scores Functional Gait Assessment Score: 18 % Disability: 40.0000 CATSIB Score (Max score 120 seconds): 70 Oswestry Low Back Score: 30 Improvement % Improvement: 10 <Electronically signed by Cert. FREDDY Thomson PT, KONSTANTIN> 02/21/25 1024 CC: Dr. Price Herndon MD ~ [facility] Signed [facility] Work Phone: 1([phone]) [phone] Discharge summary [facility] Physical Therapy [facility] [address] [place] [address] [address] [place] [address] / REHABILITATION SERVICES DISCHARGE SUMMARY MR#: [id number] Acct: [id number] Name: ADOLFO RIVERA Rep #: [id number] [...] please feel free to call me at [phone]. Thank you for the referral of thispatient. Sincerely, Bob Mcmahan PT, Cert MDT, OCS Balance/Gait/Functional tests Balance/Special Test Scores Functional Gait Assessment Score: 18 % Disability: 40.0000 CATSIB Score (Max score 120 seconds): 70 Oswestry Low Back Score: 30 Improvement % Improvement: 10 02/21/25 1024 CC: Dr. Price Herndon MD ~ [facility] Signed [facility]12-09-2024 Note ORIGINAL EXAMINATION: MRI OF THE LUMBAR [...] Sign Date: 09/02/2024 10:41:02 AM Ordering Provider: [facility]09-22-2023 Discharge summary Author Itz Napier [facility] June 16, 2023 10:23am Note Date/Time June 16, 2023 10:23am [facility] Physical Therapy [facility] [address] [place] [address] [address] [place] [id number] / REHABILITATION SERVICES DISCHARGE SUMMARY MR#: [id number] Acct: [id number] Name: ADOLFO RIVERA Rep #: [id number] [...] please feel free to call me at [phone]. Thank you for the referral of thispatient. Sincerely, Itz Napier DPT, OCS, CSCS Balance/Gait/Functional tests Balance/Special Test Scores Functional Gait Assessment Score: 24 % Disability: 20.0000 WOMAC Total Score: 25 WOMAC Percentage: 73.9600 Improvement % Improvement: 90 <Electronically signed by Itz Napier DPT, OCS, CSCS> 06/16/23 1023 CC: Dr. Burton Quinn DO; Dr. Price Herndon MD ~ [facility] Signed [facility] Work Phone: 1([phone]) 344-732407-26-2023 Consult note Author Rufus Clemente [facility] April 19, 2023 2:07pm Note Date/Time April 19, 2023 2:07 pm [facility] Medical Records Department [address] [place] [address] Counseling Note - Pharmacy 04/19/23 1403 MR#: [id number] Acct: [id number] Name: ADOLFO RIVERA Rep #:[id number] : 1945 77 From: Rufus Clemente PCP: Dr. Price Herndon MD Status:ADM I N Y [id number] Service has performed discharge medication reconciliation [...] on Eliquis, Acetaminophen, and Oxycodone prescriptions by on call pharmacy technician Rudolph. Medications at Discharge Home Medications coenzyme [...] applicable): Date CC: ~ Signed [facility] Work Phone: [phone]) [phone] Discharge summary [facility] April 19, 2023 12:38pm Note Date/Time April 19, 2023 12:3 5pm [facility] Medical Records Department [address] [place] [address] Instructions for Home/Discharge Instructions 04/19/23 1234 MR#: [id number] Acct: [id number] Name: ADOLFO RIVERA Rep #:[id number] : [...] 04/19/23 1238<Electronically signed by Burton Quinn DO>[place] CC: Dr. Price Herndon MD ~ Signed [facility] Work Phone: [phone]) [phone] Progress note Author [facility] April 19, 2023 12:34pm Note Date/Time April 19, 2023 12:3 4pm [facility] Medical Records Department [address] [place] [address] Progress Note - Orthopedic 04/19/23 1232 MR#: [id number] Acct: [id number] Name: ADOLFO RIVERA Rep #:[id number] : 1945 77 From: Burton Quinn DO PCP: Dr. Price Herndon MD Status:ADM I N Location: [place] [address] Subjective Subjective Patient seen and examined. Doing [...] GFR (MDRD) Non-Af 90, BUN/Creatinine Ratio 12.7, [id number] H, Calcium 8.7 Micro: Microbiology 04/12/23 08:34 [...] (if applicable): CC: ~ Signed [facility] Work Phone: [phone]) [phone] Procedure [facility] 04-18-2023 History and physical note Author Burton Quinn [facility] April 18, 2023 7:06am Note Date/Time April 18, 2023 7:06 am [facility] Medical Records Department [address] [place] [address] History & Physical Exam 04/18/23 0705 MR#: [id number] Acct: [id number] Name: ADOLFO RIVERA Rep #:[id number] : 1945 77 From: Burton Quinn DO PCP: Dr. Price Herndon MD Status:ADM I N Location: [facility] AC-TB A-1 History and Physical Date of Admission: 04/18/23 [facility] [address] [place] [address] [address] [place] [address] OFFICE VISIT Date of Service: 04/07/23 MR#: [id number] Acct: [id number] Name: ADOLFO RIVERA Rep #: [id number] : 1945 Provider: Dr. Burton Quinn DO [...] DAILY #90 caps 03/30/23 [Rx Confirmed 04/07/23] [facility] Medical History Acute respiratory failure with hypoxia Asthma Atherosclerotic heart disease of [place] coronary artery without angina pectoris Essential hypertension [...] 01/24/2023 x-ray right knee: Advanced tricompartmental DJD [id number] 02/06/2023 x-ray left knee: Moderate to advanced [...] Dr. Price Herndon MD~ Signed [facility] Work Phone: [phone]) [phone] History of Present illness Narrative* Haylee Watts [...] fully evaluate in Exp Care Referred to [facility] to drive They agreed and VU. [...] Date:09/10/2024 10:10:00 AM Scheduled Provider:KAREN SOMERS DO Location:[facility] Appointment Type:[facility] OV Review Testing [facility] Evaluation note* Diagnosis Onset Date Resolution Status Atherosclerotic heart diseas e of [place]oks[place] coronary artery without angina pectoris chronic Essential hypertension chron ic Nonsustained ventricular tachycardia chronic PAC (premature atrial contraction) chronic Pure hypercholesterolemia ch ronic PVC (premature ventricular contraction) chronic [facility] Work Phone: Evaluation noteNo assessment information available [facility] Work Phone: Evaluation note* Diagnosis Syncope, unspecified syncope type- Primary documented in this encounter [facility] note* Diagnosis Onset Date Resolution Status Osteoarthritis of knees, bilateral acute [facility] Work Phone: Evaluation note* Diagnosis Onset Date Resolution Status Osteoarthritis of knees, bilateral acute Essential hypertension chron ic Nonsustained ventricular tachycardia chronic Syncope acute Essential hypertension chron ic Nonsustained ventricular tachycardia chronic [facility] Work Phone: Evaluation note* Diagnosis Onset Date Resolution Status Osteoarthritis of knees, bilateral acute Essential hypertension chron ic Nonsustained ventricular tachycardia chronic Syncope acute Essential hypertension chron ic Nonsustained ventricular tachycardia chronic Right knee pain acute S/P total knee arthroplasty [facility] Work Phone: Evaluation note* Diagnosis Onset Date Resolution Status Osteoarthritis of knees, bilateral acute Essential hypertension chron ic Nonsustained ventricular tachycardia chronic Syncope acute Essential hypertension chron ic Nonsustained ventricular tachycardia chronic Right knee pain acute S/P total knee arthroplasty acute Orthopedic aftercare [facility] Work Phone: Evaluation note* Diagnosis Onset Date Resolution Status Osteoarthritis of knees, bilateral acute Essential hypertension chron ic Nonsustained ventricular tachycardia chronic Syncope acute Essential hypertension chron ic Nonsustained ventricular tachycardia chronic Right knee pain acute S/P total knee arthroplasty acute Orthopedic aftercare acute Orthopedic aftercare [facility] Work Phone: Evaluation note* Diagnosis Onset Date Resolution Status Essential hypertension chron ic Nonsustained ventricular tachycardia chronic Syncope acute Essential hypertension chron ic Nonsustained ventricular tachycardia chronic Right knee pain acute S/P total knee arthroplasty acute Orthopedic aftercare acute Orthopedic aftercare acute S/P total knee arthroplasty [facility] Work Phone: Evaluation note* Diagnosis Onset Date Resolution Status Admit Date Edema acute March 20 8:08am Implantable loop recorder present acute March 20, 2025 8:08am Essential hypertension chronic Ju ne 2024 8:08am Nonsustained ventricular tachycardia chronic March 20, 2025 8:08am [facility] Work Phone: Hospital course Narrative No data available for this section [facility] Hospital Discharge instructions No data available for this section [facility] Progress note No data available for this section [facility] Reason for referral (narrative)No reason for referral information availableW[facility] Work Phone: Chief Complaint and Reason for Visit Chief Complaint 6 M FU with PFM (nelson ves for [place] in Aug) Reason for Visit Atherosclerotic hear t disease of [place] coronary artery without angina pectoris Essential hypertension Nonsustained ventricular tachycardia PAC (premature atrial contraction) Pure hypercholesterolemia PVC (premature ventricular contraction) Chief Complaint CHILLS WITHOUT FEVER 6 M FU w PFM Reason for Visit Atherosclerotic hear t disease of [place] coronary artery without angina pectoris Essential hypertension Nonsustained ventricular tachycardia PAC (premature atrial contraction) Pure hypercholesterolemia PVC (premature ventricular contraction) Chief Complaint RIGHT KNEE Room 1 OA R KNEE. 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 RX HERE Bilateral primary osteoarthritis of knee SYNCOPE AND COLLAPSE Reason for Visit Osteoarthritis of kn ees, bilateral Essential hypertension Nonsustained ventricular tachycardia Syncope Essential hypertension Nonsustained ventricular tachycardia Chief Complaint RIGHT KNEE Room 1 dizziness S/P [facility] W LUNCH WAGON OPERATOR PER YANICK SYNCOPE 3 wk fu per LUNCH WAGON OPERATOR Bilateral primary osteoarthritis of knee SYNCOPE [...] Complaint RIGHT KNEE Room 1 dizziness S/P [facility]U W LUNCH WAGON OPERATOR PER YANICK SYNCOPE 3 wk fu per LUNCH WAGON OPERATOR Bilateral primary osteoarthritis of knee SYNCOPE [...] Complaint RIGHT KNEE Room 1 dizziness S/P [facility]U W LUNCH WAGON OPERATOR PER YANICK SYNCOPE 3 wk fu per LUNCH WAGON OPERATOR Bilateral primary osteoarthritis of knee SYNCOPE [...] aftercare Orthopedic aftercare Chief Complaint dizziness S/P [facility] W LUNCH WAGON OPERATOR PER YANICK SYNCOPE 3 wk fu per LUNCH WAGON OPERATOR Bilateral primary osteoarthritis of knee SYNCOPE [...] Yes January 07, 2019 1:02pm Power of Air Quality Manager Yes January 07 1:02pm Advance Directive Response Recorded Date/ Time Advance Directives Yes May 4:37am Living Will Yes January 07, 2019 12:02pm Power of Air Quality Manager Yes January 07 12:02pm Advance Directive Response Recorded Date/ Time Name of Medical Power of Air Quality Manager LEONORA RIVERA February 20, 2023 3:23pm Advance Directives Yes May 5:37am Living Will Yes February 20, 2023 3 :23pm Power of Air Quality Manager Yes February 20, 2023 3:23pm Advance Directive Response Recorded Date/ Time Name of Medical Power of Air Quality Manager LEONORA RIVERA February 20, 2023 3:23pm Advance Directives No March 30 8:44am Living Will No March 30, 2023 8 :44am Power of Air Quality Manager No March 30, 2023 8:44am Advance Directive Response Recorded Date/ Time Name of Medical Power of Air Quality Manager LEONORA RIVERA February 20, 2023 3:23pm Advance Directives on File No March 30, 2023 8:44am Advance Directives No March 31 10:42am Living Will No March 31, 2023 1 0:42am Power of Air Quality Manager No March 31, 2023 10:42am Advance Directive Response Recorded Date/ Time Name of Medical Power of Air Quality Manager LEONORA RIVERA February 20, 2023 3:23pm Advance Directives on File No March 30, 2023 8:44am Name of Medical Power of Air Quality Manager , Leonora Rivera April 18, 2023 1:26pm Advance Directives No March 31 10:42am Living Will Yes April 18, 2023 1:26pm Power of Air Quality Manager Yes April 18 1:26pm Advance Directive Response Recorded Date/ Time Advance Directives No March 31 10:42am Living Will Yes April 18, 2023 1:26pm Power of Air Quality Manager Yes April 18 1:26pm Advance Directive Response [...] or prosecute any alcohol or drug abuse patient.[facility] the event this information is protected by the Federal Confidentiality of Alcohol and Drug Abuse Patient Records regulations: The Federal rules restrict any use of the information to criminally investigate or prosecute any alcohol or drug abuse patient.[facility] Care Teams (unrecognized sec tion and content) Drill Instructor Relationship Specialty Start Date End Date Price Herndon Chi (Historical) [place] [address] PCP - General 04/26/07 Team Status: Active [...] Active Start: March 17, 2025 Dr. Price Henrdon MD Attending Provider Active Start: March 17, [...] March 20, 2025 End: March 20, 2025 Drill Instructor Relationship Specialty Start Date End Date Price Herndon Chi (Historical) [place] [address] PCP - General 04/26/07 Team Status: Active Member Role/Relationship Status Dates Dr. Price Herndon MD Primary Care Provider Active Team Status: Inactive Member Role/Relationship Status Dates Dr. Price Herndon MD Primary Care Provider Active Start: November 23, 2024 End: November 23, 2024 Dr. Saul Brush MD Attending Provider Active S tart: November 23, 2024 End: November 23, 2024 Dr. Saul rBush MD Referring Provider Active S tart: November [...] 23, 2025 End: January 23, 2025 Dr. Priec Herndon MD Attending Provider Active Start: January [...] Provider Active Start: April 24, 2025 Dr. Suhsil Stafford MD Referring Provider Active Start: April [...] 2025 End: April 07, 2025 Dr. Price Hernodn MD Referring Provider Active Start: April 07, [...] content) DATE CREATED AUTHOR 09/04/2024 [facility] DATE CREATED AUTHOR AUTHOR'S ORGANIZ ATION 07/15/2025 [facility] DATE CREATED AUTHOR AUTHOR'S ORGANIZ ATION 07/26/2025 [facility] DATE CREATED AUTHOR AUTHOR'S ORGANIZ ATION 08/02/2025 [facility] Reason for Visit (unrecogniz ed [...] BE BASED ON THE PRIMARY CLINICAL RECORDS. [employer] provides no warranty or guarantee of the accuracy or completeness of information in this document.
[2025-08-19] MEDS: APIXABAN 5 MG TABLET PO (22:10)
[2025-08-20] VITALS (8 sets, daily range): BP systolic 104–159; BP diastolic 52–79; PULSE 72–86; RESP 16–18; TEMP 36.5–37; O2SAT 93–96; BMI 40.1
[2025-08-20 05:58] LABS: Hematocrit 34.4 % (40-54); Hemoglobin 11.1 g/dL (13.0-16.5); Immature Granulocytes Count 0.010 X10^3/uL (0.0-0.0); Mean Corp Hgb Conc 32.3 g/dL (32-36); Mean Corpuscular Volume 99.1 fL (80-94); Mean Platelet Vol. 9.9 fl (6.2-12.0); NRBC Flagged by Analyzer 0 % (0-5); Platelet Count 190 K/mm3 (150-450); RBC Distribution Width CV 13.7 % (11.6-14.6); RBC Distribution Width SD 50.4 fl (35.1-43.9); Red Blood Count 3.47 M/mm3 (4.6-6.2); White Blood Count 4.8 K/mm3 (4.4-11.0)
[2025-08-20 07:01] LABS: AST(SGOT) 22 U/L (<=37); Alanine Aminotransfer ALT/SGPT 22 U/L (<=46); Albumin, Serum 3.4 g/dL (3.4-4.8); Alkaline Phosphatase 71 U/L (40-129); Anion Gap 9 (5-15); BUN 19 mg/dL (4-19); BUN/Creat Ratio 23.4 RATIO (10-20); Calcium,Total 8.7 mg/dL (7.6-11.0); Carbon Dioxide 28.8 mmol/L (21.0-32.0); Chloride 102 mmol/L (98-108); Cholesterol 123 mg/dL (<=200); Estimated Creatinine Clearance 94.05 ml/min (50-250); Globulin 2.1 g/dL (2.2-4.2); Glucose 96 mg/dL (70-99); Low Density Lipoprotein Calc. 55 mg/dL; Potassium 3.8 mmol/L (3.3-5.1); Triglycerides 74 mg/dL; Very Low Density Lipoprotein 15 mg/dL (5-40); cholesterol:hdl ratio screen 2.34
--- NOTE | 2025-08-20 07:24 | PN.HOSP_ITS ---
Reason for Visit Chief Complaint: Dyspnea, increased edema, orthopnea. 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 An assessment of decompensated congestive heart failure made admitted to monitored bed for subsequent management Objective Data Objective Data Vital Signs: Vital Signs Temp Pulse Resp BP Pulse Ox O2 Del Method 98.4 F 76 17 145/73 H 93 Room Air 08/20/25 04:36 08/20/25 04:36 08/20/25 04:36 08/20/25 04:36 08/20/25 04:36 08/20/25 04:38 Oxygen Delivery Method Room Air Weight: 123.5 kg Body Mass Index (BMI) 40.1 Intake & Output: Intake and Output for Last 24 Hours 08/18/25 08/19/25 08/20/25 23:59 23:59 23:59 Intake Total 490 / 490 Output Total 1700 / 1700 700 / 700 Balance -1210 / -1210 -700 / -700 Lab / Micro Data 08/20/25 05:15 08/20/25 05:15 Labs: Laboratory Results - last 24 hr 08/19/25 13:15: WBC 5.3, RBC 3.57 L, Hgb 11.5 L, Hct 36.3 L, MCV 101.7 H, MCH 32.2 H, MCHC 31.7 L, RDW Std Deviation 51.6 H, RDW Coeff of Dc 13.6, Plt Count 198, MPV 9.9, Immature Gran % (Auto) 0.200, Neut % (Auto) 60.9, Lymph % (Auto) 22.9, [place] % (Auto) 10.5 H, Eos % (Auto) 4.9, Baso % (Auto) 0.6, Absolute Neuts (auto) 3.3, Absolute Lymphs (auto) 1.22, Nucleated RBC % 0, Sodium 140, Potassium 4.3, Chloride 103, Carbon Dioxide 27.6, Anion Gap 9, BUN 16, Creatinine 0.84, Estim Creat Clear Calc 92.82, Est GFR (MDRD) Non-Af 88, BUN/Creatinine Ratio 19.0, Glucose 102 H, Calcium 8.8, Troponin T High Sens 31 H , NT pro BNP II 703 08/19/25 14:20: Troponin T Hi Sens 2 Hr 37 H 08/19/25 15:08: Troponin T Hi Sens 4Hr 31 H 08/19/25 16:04: Magnesium 2.2 08/20/25 05:15: WBC 4.8, RBC 3.47 L, Hgb 11.1 L, Hct 34.4 L, MCV 99.1 H, MCH 32.0, MCHC 32.3, RDW Std Deviation 50.4 H, RDW Coeff of Dc 13.7, Plt Count 190, MPV 9.9, Immature Gran % (Auto) 0.200, Neut % (Auto) 53.1, Lymph % (Auto) 27.2, [place] % (Auto) 11.8 H, Eos % (Auto) 7.1 H, Baso % (Auto) 0.6, Absolute Neuts (auto) 2.6, Absolute Lymphs (auto) 1.31, Nucleated RBC % 0, Sodium 139, Potassium 3.8, Chloride 102, Carbon Dioxide 28.8, Anion Gap 9, BUN 19, Creatinine 0.79, Estim Creat Clear Calc 94.05, Est GFR (MDRD) Non-Af 89, B UN/Creatinine Ratio 23.4 H, Glucose 96, Calcium 8.7, Total Bilirubin 0.43, AST 22, ALT 22, Alkaline Phosphatase 71, Total Protein 5.5 L, Albumin 3.4, Globulin 2.1 L, Albumin/Globulin Ratio 1.6, Triglycerides 74, Cholesterol 123, LDL Cholesterol, Calc 55, VLDL Cholesterol 15, HDL Cholesterol 53, Cholesterol/HDL Ratio 2.34, TSH 1.520 Radiography Diagnostic Testing: Radiology Impression Chest X-Ray 08/19/25 13:44 IMPRESSION: Stable appearance of the chest with low lung volumes. Blunted costophrenic angles likely indicative of scarring bilaterally. Stable cardiomegaly. Reading Location: [facility] Rhythm Strip Rhythm Strip: Sinus Rhythm Rate: 78 Ectopy: PVC(s) Physical Exam Narrative GENERAL: cooperative HEENT: Atraumatic; normocephalic EYES; Anicteric, Normal Conjunctiva NECK; supple, normal thyroid, RESPIRATORY: Diminished to auscultation CARDIOVASCULAR: Regular S1 S2, GI: soft, normoactive bowel sounds, : No Renal angle tenderness; EXTREMITIES: Tim wrapped, bilateral pedal edema, no clubbing, MUSCULOSKELETAL: no muscle wasting NEURO: Awake; no lateralizing signs. 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 An assessment of decompensated congestive heart failure made admitted to monitored bed for subsequent management 1. Acute on chronic congestive heart failure with preserved ejection fraction – Echo from 03/20/2023 demonstrated normal LV systolic function with EF of 55% with stage I diastolic dysfunction. Patient has been admitted to monitored bed manage with strict input and output, daily weight, low-sodium diet, fluid restriction as well as diuretic therapy. Repeat echo ordered for EF assessment 2. Hypertension – Blood pressure control not optimal, systolic blood pressure elevated at 160. Adjustment made to patient antihypertensive regimen 3. Class III obesity with BMI of 40.2 – Complicating care weight loss advised 4. Dyslipidemia –Patient is on statin therapy, continued at home dose 5. History of cardiac ectopy with PACs/PVCs and nonsustained VT 6. Mild intermittent asthma – Aerosol treatments as needed 7.Anemia – Secondary to chronic disorder monitoring H&H and transfuse if patient becomes symptomatic or hemoglobin falls below 7 8. History of previous DVT – Patient is on systemic anticoagulation with apixaban 9. DVT prophylaxis patient already on apixaban Time spent in the patient's overall evaluation,decision-making process, review of diagnostic data, adjustment of management, discussion with other providers, nursing nursing and ancillary staff involved in patient's care documentation, 50 Minutes Charges/Coding Visit Charges Inpatient E&M: 30390 Subs Hosp L3
[2025-08-20] MEDS: Potassium Chloride Oral Tablet 20 MEQ PO (09:07)
[2025-08-20] MEDS: APIXABAN 5 MG TABLET PO ×2 (09:09→21:11)
--- NOTE | 2025-08-20 09:51 | CASEMGMT ---
Social Work Face to Face with pt for initial transition planning/care coordination assessment. SW introduced self and role at [facility]. Patient voices understanding and consents to assessment. Pt is A&O x4 and answers all questions appropriately at this time. Admitting Dx:HF Exac Primary Care Doctor: Dr. Herndon Speciality doctors: Cardio- Dr. Brush Insurance: Medicare and [employer] Pharmacy: Patient utilizes [facility] in [place]. Advanced directives: Patient reported he has a POA and LW. Patient requested a copy for his medical chart. LNOK:. and daughter Living Situation: Patient lives at home with his . There are 2 steps into the home. Patient is ambulatory and uses a cane. ADL's/Prior level of functioning: independent Transportation: Patient still drives. DME: cane skilled nursing/home health history: none Support/Community Services: [employer] Mental Health: none Substance abuse history: none Assessment: Patient lives at home with his . There are 2 steps into the home. Patient is ambulatory and uses a cane. Patient has one daughter, 2 grandson, 1 great granddaughter, 1 great grandson. PLAN: [place] at [place] JEREMIAS Martines
--- NOTE | 2025-08-20 13:47 | CASEMGMT ---
Social Work Patient is agreeable to using [employer] at [place] for oxygen if required. JEREMIAS Martines
[2025-08-20] MEDS: 0.9% Saline Lock 10 ML Syringe IV (21:11)
[2025-08-21 02:42] VITALS: BMI 39.6
[2025-08-21 04:25] VITALS: BP 131/76; PULSE 77; RESP 16; TEMP 36.9; O2SAT 95
[2025-08-21 04:34] LABS: Hematocrit 34.4 % (40-54); Hemoglobin 11.2 g/dL (13.0-16.5); Immature Granulocytes Count 0.010 X10^3/uL (0.0-0.0); Mean Corp Hgb Conc 32.6 g/dL (32-36); Mean Corpuscular Volume 98.9 fL (80-94); Mean Platelet Vol. 9.8 fl (6.2-12.0); NRBC Flagged by Analyzer 0 % (0-5); Platelet Count 197 K/mm3 (150-450); RBC Distribution Width CV 13.8 % (11.6-14.6); RBC Distribution Width SD 50.4 fl (35.1-43.9); Red Blood Count 3.48 M/mm3 (4.6-6.2); White Blood Count 5.4 K/mm3 (4.4-11.0)
[2025-08-21 05:25] LABS: Anion Gap 10 (5-15); BUN 21 mg/dL (4-19); BUN/Creat Ratio 23.3 RATIO (10-20); Calcium,Total 8.6 mg/dL (7.6-11.0); Carbon Dioxide 28.4 mmol/L (21.0-32.0); Chloride 100 mmol/L (98-108); Estimated Creatinine Clearance 82.14 ml/min (50-250); Glucose 103 mg/dL (70-99); Magnesium 2.3 mg/dL (1.5-2.2); Potassium 3.9 mmol/L (3.3-5.1)
[2025-08-21 06:35] VITALS: BP 137/76; PULSE 76; RESP 14; TEMP 36.9; O2SAT 96
[2025-08-21] MEDS: 0.9% Saline Lock 10 ML Syringe IV ×2 (06:35→20:38)
--- NOTE | 2025-08-21 07:48 | PN.HOSP_ITS ---
Reason for Visit Chief Complaint: Dyspnea, increased edema, orthopnea. Subjective Subjective Patient responding to diuretic therapy and is net negative fluid balance of 2 L over the past 24 hours. Telemetry monitoring did not demonstrate runs of nonsustained VT. Objective Data Objective Data Vital Signs: Vital Signs Temp Pulse Resp BP Pulse Ox O2 Del Method 98.4 F 76 14 137/76 H 96 Room Air 08/21/25 06:35 08/21/25 06:35 08/21/25 06:35 08/21/25 06:35 08/21/25 06:35 08/21/25 06:35 Oxygen Delivery Method Room Air Weight: 122 kg Body Mass Index (BMI) 39.6 Intake & Output: Intake and Output for Last 24 Hours 08/19/25 08/20/25 08/21/25 23:59 23:59 23:59 Intake Total 490 / 490 940 / 940 Output Total 1700 / 1700 2430 / 2430 1200 / 1200 Balance -1210 / -1210 -1490 / -1490 -1200 / -1200 Lab / Micro Data 08/21/25 04:04 08/21/25 04:04 Labs: Laboratory Results - last 24 hr 08/21/25 04:04: WBC 5.4, RBC 3.48 L, Hgb 11.2 L, Hct 34.4 L, MCV 98.9 H, MCH 32.2 H, MCHC 32.6, RDW Std Deviation 50.4 H, RDW Coeff of Dc 13.8, Plt Count 197, MPV 9.8, Immature Gran % (Auto) 0.200, Neut % (Auto) 53.8, Lymph % (Auto) 27.0, [place] % (Auto) 11.7 H, Eos % (Auto) 6.7 H, Baso % (Auto) 0.6, Absolute Neuts (auto) 2.9, Absolute Lymphs (auto) 1.46, Nucleated RBC % 0, Sodium 138, Potassium 3.9, Chloride 100, Carbon Dioxide 28.4, Anion Gap 10, BUN 21 H, Creatinine 0.91, Estim Creat Clear Calc 82.14, Est GFR (MDRD) Non-Af 85, B UN/Creatinine Ratio 23.3 H, Glucose 103 H, Calcium 8.6, Phosphorus 3.6, M agnesium 2.3 H Radiography Diagnostic Testing: Radiology Impression Echocardiogram 08/19/25 16:24 Interpretation Summary Normal LV size. Mild concentric left ventricular hypertrophy. The left ventricular ejection fraction is 60 %. Stage 1 diastolic dysfunction. Contrast injection was performed. Ordering Physician: Sharon Grande Referring Physician: Price Herndon Chi Performed By: Natalia Mahmood RDCS Rhythm Strip Rhythm Strip: Sinus Rhythm Rate: 78 Ectopy: PVC(s) Physical Exam Narrative GENERAL: cooperative HEENT: Atraumatic; normocephalic EYES; Anicteric, Normal Conjunctiva NECK; supple, normal thyroid, RESPIRATORY: Diminished to auscultation CARDIOVASCULAR: Regular S1 S2, GI: soft, normoactive bowel sounds, : No Renal angle tenderness; EXTREMITIES: Significant bipedal edema with stasis dermatitis more pronounced on the right MUSCULOSKELETAL: no muscle wasting NEURO: Awake; no lateralizing signs. 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 An assessment of decompensated congestive heart failure made admitted to monitored bed for subsequent management 1. Acute on chronic congestive heart failure with preserved ejection fraction – Echo from 03/20/2023 demonstrated normal LV systolic function with EF of 55% with stage I diastolic dysfunction. Patient has been admitted to monitored bed manage with strict input and output, daily weight, low-sodium diet, fluid restriction as well as diuretic therapy. Repeat echo ordered for EF assessment – 08/21/2025;Patient responding to diuretic therapy and is net negative fluid balance of 2 L over the past 24 hours. 2D echo obtained the day prior did show Normal LV size. Mild concentric left ventricular hypertrophy. The left ventricular ejection fraction is 60 %.Stage 1 diastolic dysfunction. 2. Hypertension – Blood pressure control not optimal, systolic blood pressure elevated at 160. Adjustment made to patient antihypertensive regimen 3. Class III obesity with BMI of 40.2 – Complicating care weight loss advised 4. Dyslipidemia –Patient is on statin therapy, continued at home dose 5. History of cardiac ectopy with PACs/PVCs and nonsustained VT – 08/21/2025; patient remains on continuous telemetry monitoring and has had runs of nonsustained VT 6. Mild intermittent asthma – Aerosol treatments as needed 7.Anemia – Secondary to chronic disorder monitoring H&H and transfuse if patient becomes symptomatic or hemoglobin falls below 7 8. History of previous DVT – Patient is on systemic anticoagulation with apixaban 9. DVT prophylaxis patient already on apixaban Time spent in the patient's overall evaluation,decision-making process, review of diagnostic data, adjustment of management, discussion with other providers, nursing nursing and ancillary staff involved in patient's care documentation, 38 Minutes Charges/Coding Visit Charges Inpatient E&M: 41333 Subs Hosp L2
--- NOTE | 2025-08-21 08:26 | PCM.PN.HOSP ---
Reason for Visit Chief Complaint: Dyspnea, increased edema, orthopnea. Subjective Subjective Patient seen responding to diuretic therapy however still has significant amount of edema. Telemetry monitoring did not demonstrate runs of nonsustained VT. Objective Data Objective Data Vital Signs: Vital Signs Temp Pulse Resp BP Pulse Ox O2 Del Method 98.4 F 76 14 137/76 H 96 Room Air 08/21/25 06:35 08/21/25 06:35 08/21/25 06:35 08/21/25 06:35 08/21/25 06:35 08/21/25 06:35 Oxygen Delivery Method Room Air Weight: 122 kg Body Mass Index (BMI) 39.6 Intake & Output: Intake and Output for Last 24 Hours 08/19/25 08/20/25 08/21/25 23:59 23:59 23:59 Intake Total 490 / 490 940 / 940 Output Total 1700 / 1700 2430 / 2430 1200 / 1200 Balance -1210 / -1210 -1490 / -1490 -1200 / -1200 Lab / Micro Data 08/21/25 04:04 08/21/25 04:04 Labs: Laboratory Results - last 24 hr 08/21/25 04:04: WBC 5.4, RBC 3.48 L, Hgb 11.2 L, Hct 34.4 L, MCV 98.9 H, MCH 32.2 H, MCHC 32.6, RDW Std Deviation 50.4 H, RDW Coeff of Dc 13.8, Plt Count 197, MPV 9.8, Immature Gran % (Auto) 0.200, Neut % (Auto) 53.8, Lymph % (Auto) 27.0, [place] % (Auto) 11.7 H, Eos % (Auto) 6.7 H, Baso % (Auto) 0.6, Absolute Neuts (auto) 2.9, Absolute Lymphs (auto) 1.46, Nucleated RBC % 0, Sodium 138, Potassium 3.9, Chloride 100, Carbon Dioxide 28.4, Anion Gap 10, BUN 21 H, Creatinine 0.91, Estim Creat Clear Calc 82.14, Est GFR (MDRD) Non-Af 85, BUN/Creatinine Ratio 23.3 H, Glucose 103 H, Calcium 8.6, Phosphorus 3.6, Magnesium 2.3 H Radiography Diagnostic Testing: Radiology Impression Echocardiogram 08/19/25 16:24 Interpretation Summary Normal LV size. Mild concentric left ventricular hypertrophy. The left ventricular ejection fraction is 60 %. Stage 1 diastolic dysfunction. Contrast injection was performed. Ordering Physician: Sharon Grande Referring Physician: Price Herndon Chi Performed By: Natalia Mahmood RDCS Rhythm Strip Rhythm Strip: Sinus Rhythm Rate: 78 Ectopy: PVC(s)
[2025-08-21 10:45] VITALS: BP 112/51; PULSE 82; RESP 18; TEMP 36.4; O2SAT 95
[2025-08-21] MEDS: APIXABAN 5 MG TABLET PO ×2 (10:52→20:38)
[2025-08-21] MEDS: Potassium Chloride Oral Tablet 20 MEQ PO (10:52)
[2025-08-21 14:25] VITALS: BP 96/62; PULSE 81; RESP 16; TEMP 36.4; O2SAT 97
[2025-08-21 17:29] VITALS: BP 113/61; PULSE 92; RESP 18; TEMP 36.9; O2SAT 95
[2025-08-21 20:30] VITALS: BP 131/64; PULSE 86; RESP 18; TEMP 36.8; O2SAT 93
[2025-08-21] MEDS: Senna/Docusate Sodium 1 Tablet 2 TABLET PO (20:38)
[2025-08-22] VITALS (7 sets, daily range): BP systolic 114–138; BP diastolic 55–83; PULSE 73–93; RESP 14–20; TEMP 36.6–37; O2SAT 94–96; BMI 39.0
[2025-08-22] MEDS: 0.9% Saline Lock 10 ML Syringe IV (05:36)
[2025-08-22] MEDS: Albuterol 2.5 MG/3 ML VIAL.NEB. INHALATION ×2 (05:50→11:04)
[2025-08-22 06:26] LABS: Hematocrit 34.1 % (40-54); Hemoglobin 11.6 g/dL (13.0-16.5); Immature Granulocytes Count 0.020 X10^3/uL (0.0-0.0); Mean Corp Hgb Conc 34.0 g/dL (32-36); Mean Corpuscular Volume 97.7 fL (80-94); Mean Platelet Vol. 9.7 fl (6.2-12.0); NRBC Flagged by Analyzer 0 % (0-5); Platelet Count 200 K/mm3 (150-450); RBC Distribution Width CV 13.8 % (11.6-14.6); RBC Distribution Width SD 50.0 fl (35.1-43.9); Red Blood Count 3.49 M/mm3 (4.6-6.2); White Blood Count 5.5 K/mm3 (4.4-11.0)
[2025-08-22 07:21] LABS: Anion Gap 11 (5-15); BUN 24 mg/dL (4-19); BUN/Creat Ratio 25.2 RATIO (10-20); Calcium,Total 8.3 mg/dL (7.6-11.0); Carbon Dioxide 27.3 mmol/L (21.0-32.0); Chloride 101 mmol/L (98-108); Estimated Creatinine Clearance 77.99 ml/min (50-250); Glucose 98 mg/dL (70-99); Potassium 4.0 mmol/L (3.3-5.1)
--- NOTE | 2025-08-22 07:25 | PN.HOSP_ITS ---
Reason for Visit Chief Complaint: Dyspnea, increased edema, orthopnea. Subjective Subjective Patient seen continues to diurese well. Case discussed with patient and spouse about discharge. Objective Data Objective Data Vital Signs: Vital Signs Temp Pulse Resp BP Pulse Ox O2 Del Method 98.2 F 80 20 H 138/70 H 96 Room Air 08/22/25 05:35 08/22/25 05:50 08/22/25 05:50 08/22/25 05:35 08/22/25 05:35 08/22/25 05:35 Oxygen Delivery Method Room Air Weight: 120 kg Body Mass Index (BMI) 39.0 Intake & Output: Intake and Output for Last 24 Hours 08/20/25 08/21/25 08/22/25 23:59 23:59 23:59 Intake Total 940 / 940 1360 / 1360 100 / 100 Output Total 2430 / 2430 2400 / 2400 500 / 500 Balance -1490 / -1490 -1040 / -1040 -400 / -400 Lab / Micro Data 08/22/25 05:42 08/22/25 05:42 Labs: Laboratory Results - last 24 hr 08/22/25 05:42: WBC 5.5, RBC 3.49 L, Hgb 11.6 L, Hct 34.1 L, MCV 97.7 H, MCH 33.2 H, MCHC 34.0, RDW Std Deviation 50.0 H, RDW Coeff of Dc 13.8, Plt Count 200, MPV 9.7, Immature Gran % (Auto) 0.400, Neut % (Auto) 57.6, Lymph % (Auto) 24.5, [place] % (Auto) 10.7 H, Eos % (Auto) 6.3 H, Baso % (Auto) 0.5, Absolute Neuts (auto) 3.2, Absolute Lymphs (auto) 1.35, Nucleated RBC % 0, Sodium 140, Potassium 4.0, Chloride 101, Carbon Dioxide 27.3, Anion Gap 11, BUN 24 H, Creatinine 0.95, Estim Creat Clear Calc 77.99, Est GFR (MDRD) Non-Af 81, B UN/Creatinine Ratio 25.2 H, Glucose 98, Calcium 8.3 Rhythm Strip Rhythm Strip: Sinus Rhythm Rate: 78 Ectopy: PVC(s) Physical Exam Narrative GENERAL: cooperative HEENT: Atraumatic; normocephalic EYES; Anicteric, Normal Conjunctiva NECK; supple, normal thyroid, RESPIRATORY: Diminished to auscultation CARDIOVASCULAR: Regular S1 S2, GI: soft, normoactive bowel sounds, : No Renal angle tenderness; EXTREMITIES: Bipedal edema MUSCULOSKELETAL: no muscle wasting NEURO: Awake; no lateralizing signs. 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 An assessment of decompensated congestive heart failure made admitted to monitored bed for subsequent management 1. Acute on chronic congestive heart failure with preserved ejection fraction – Echo from 03/20/2023 demonstrated normal LV systolic function with EF of 55% with stage I diastolic dysfunction. Patient has been admitted to monitored bed manage with strict input and output, daily weight, low-sodium diet, fluid restriction as well as diuretic therapy. Repeat echo ordered for EF assessment – 08/21/2025;Patient responding to diuretic therapy and is net negative fluid balance of 2 L over the past 24 hours. 2D echo obtained the day prior did show Normal LV size. Mild concentric left ventricular hypertrophy. The left ventricular ejection fraction is 60 %.Stage 1 diastolic dysfunction. – 08/22/2027. Patient has had significant diuresis with current therapy. Case discussed with patient and plan is for patient to be discharged home 2. Hypertension – Blood pressure control not optimal, systolic blood pressure elevated at 160. Adjustment made to patient antihypertensive regimen 3. Class III obesity with BMI of 40.2 – Complicating care weight loss advised 4. Dyslipidemia –Patient is on statin therapy, continued at home dose 5. History of cardiac ectopy with PACs/PVCs and nonsustained VT – 08/21/2025; patient remains on continuous telemetry monitoring and has had runs of nonsustained VT 6. Mild intermittent asthma – Aerosol treatments as needed 7.Anemia – Secondary to chronic disorder monitoring H&H and transfuse if patient becomes symptomatic or hemoglobin falls below 7 8. History of previous DVT – Patient is on systemic anticoagulation with apixaban 9. DVT prophylaxis patient already on apixaban Time spent in the patient's overall evaluation,decision-making process, review of diagnostic data, adjustment of management, discussion with other providers, nursing nursing and ancillary staff involved in patient's care documentation, 38 Minutes Charges/Coding Visit Charges Inpatient E&M: 66814 Subs Hosp L2
[2025-08-22] MEDS: Potassium Chloride Oral Tablet 20 MEQ PO (09:46)
[2025-08-22] MEDS: APIXABAN 5 MG TABLET PO (09:46)
--- NOTE | 2025-08-22 09:46 | DS.PCM_ITS ---
Providers Date of Admission: 08/19/25 Date of Discharge: 08/22/25 Primary Care Physician: Dr. 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 An assessment of decompensated congestive heart failure made admitted to monitored bed for subsequent management 1. Acute on chronic congestive heart failure with preserved ejection fraction – Echo from 03/20/2023 demonstrated normal LV systolic function with EF of 55% with stage I diastolic dysfunction. Patient has been admitted to monitored bed manage with strict input and output, daily weight, low-sodium diet, fluid restriction as well as diuretic therapy. Repeat echo ordered for EF assessment – 08/21/2025;Patient responding to diuretic therapy and is net negative fluid balance of 2 L over the past 24 hours. 2D echo obtained the day prior did show Normal LV size. Mild concentric left ventricular hypertrophy. The left ventricular ejection fraction is 60 %.Stage 1 diastolic dysfunction. – 08/22/2027. Patient has had significant diuresis with current therapy. Case discussed with patient and plan is for patient to be discharged home 2. Hypertension – Blood pressure control not optimal, systolic blood pressure elevated at 160. Adjustment made to patient antihypertensive regimen 3. Class III obesity with BMI of 40.2 – Complicating care weight loss advised 4. Dyslipidemia –Patient is on statin therapy, continued at home dose 5. History of cardiac ectopy with PACs/PVCs and nonsustained VT – 08/21/2025; patient remains on continuous telemetry monitoring and has had runs of nonsustained VT 6. Mild intermittent asthma – Aerosol treatments as needed 7.Anemia – Secondary to chronic disorder monitoring H&H and transfuse if patient becomes symptomatic or hemoglobin falls below 7 8. History of previous DVT – Patient is on systemic anticoagulation with apixaban 9. DVT prophylaxis patient already on apixaban Time spent in the patient's overall evaluation,decision-making process, review of diagnostic data, adjustment of management, discussion with other providers, nursing nursing and ancillary staff involved in patient's care documentation, 38 Minutes Medications at Discharge Home Medications coenzyme Q10 100 mg capsule 100 mg PO DAILY SUPPLEMENT 05/17/17 isosorbide mononitrate 60 mg tablet,extended release 24 hr 60 mg PO DAILY HEART #90 tabs 01/18/18 multivitamin 1 tab PO DAILY SUPPLEMENT 09/05/22 acetaminophen 500 mg tablet 1,000 mg (2 x 500 mg) PO Q6H PRN #100 tabs 04/19/23 doxazosin 4 mg tablet 4 mg PO QHS BP #90 tabs 11/27/24 pravastatin 40 mg tablet 40 mg PO QHS CHOLESTEROL #90 tabs 11/27/24 diltiazem HCl 120 mg capsule,extended release 24 hr 120 mg PO QDAY 03/20/25 finasteride 5 mg tablet 5 mg PO QDAY 03/20/25 nitroglycerin 0.4 mg sublingual tablet 0.4 mg sublingual Q5M PRN cp #25 tabs 03/20/25 potassium chloride 20 mEq tablet,extended release(part/cryst) 20 meq PO DAILY #90 TABLETS 07/25/25 coenzyme Q10 75 mg capsule (Ultra CoQ10) 75 mg PO DAILY 08/19/25 apixaban 5 mg tablet (Eliquis) 5 mg PO BID #0 tabs 08/22/25 furosemide 40 mg tablet 40 mg PO BID #120 tabs 08/22/25 Physical Exam Narrative GENERAL: cooperative HEENT: Atraumatic; normocephalic EYES; Anicteric, Normal Conjunctiva NECK; supple, normal thyroid, RESPIRATORY: Diminished to auscultation CARDIOVASCULAR: Regular S1 S2, GI: soft, normoactive bowel sounds, : No Renal angle tenderness; EXTREMITIES: Bipedal edema MUSCULOSKELETAL: no muscle wasting NEURO: Awake; no lateralizing signs. SKIN: No Rash PSYCH; Flat affect Weight / BMI Weight Weight: 120 kg Body Mass Index (BMI) 39.0 ABG / Lab / Microbiology Data 08/22/25 05:42 08/22/25 05:42 Laboratory: Laboratory Results - last 24 hr 08/22/25 05:42: WBC 5.5, RBC 3.49 L, Hgb 11.6 L, Hct 34.1 L, MCV 97.7 H, MCH 33.2 H, MCHC 34.0, RDW Std Deviation 50.0 H, RDW Coeff of Dc 13.8, Plt Count 200, MPV 9.7, Immature Gran % (Auto) 0.400, Neut % (Auto) 57.6, Lymph % (Auto) 24.5, [place] % (Auto) 10.7 H, Eos % (Auto) 6.3 H, Baso % (Auto) 0.5, Absolute Neuts (auto) 3.2, Absolute Lymphs (auto) 1.35, Nucleated RBC % 0, Sodium 140, Potassium 4.0, Chloride 101, Carbon Dioxide 27.3, Anion Gap 11, BUN 24 H, Creatinine 0.95, Estim Creat Clear Calc 77.99, Est GFR (MDRD) Non-Af 81, B UN/Creatinine Ratio 25.2 H, Glucose 98, Calcium 8.3 D/C Instructions Discharge Activity: Return to Normal Activity Call your doctor if you observe: Fever of 101 or Higher, Shortness of breath, Fainting spells and Chest pain DC O2, CPAP, BIPAP Needs Home O2 Discharge instructions: No Meaningful Use Info Meaningful Use Meaningful Use Diagnoses (Choose all that apply): CHF CHF NAHUM/ARB ordered at discharge?: No Reason NAHUM/ARB not ordered?: Not indicated Documented LVEF (%): 60 Discharge Plan Admission Admit Date/Time: 08/19/25 15:55 Attending Provider: Roman Knutson Primary Care Provider: Price Herndon Chi Consulting Providers: Sharon Grande Discharge Orders/Prescriptions Prescriptions: New Eliquis 5 mg Tablet 5 mg PO BID Qty: 0 0RF Continued isosorbide mononitrate 60 mg tablet extended release 24 hr 60 mg PO DAILY Qty: 90 3RF diltiazem HCl 120 mg capsule,extended release 24hr 120 mg PO QDAY finasteride 5 mg tablet 5 mg PO QDAY nitroglycerin 0.4 mg tablet, sublingual 0.4 mg SUBLINGUAL Q5M PRN (Reason: cp) Qty: 25 1RF coenzyme Q10 100 MG capsule 100 mg PO DAILY multivitamin Tablet 1 tab PO DAILY acetaminophen 500 mg tablet 1,000 mg PO Q6H PRN Qty: 100 0RF Ultra CoQ10 75 mg capsule 75 mg PO DAILY doxazosin 4 mg tablet 4 mg PO QHS Qty: 90 3RF pravastatin 40 mg tablet 40 mg PO QHS Qty: 90 3RF potassium chloride 20 mEq tablet,ER particles/crystals 20 meq PO DAILY Qty: 90 3RF Changed furosemide 40 mg tablet 40 mg PO BID Qty: 120 0RF Discontinued Eliquis DVT-PE Treat 30D Start 5 mg (74 tabs) tablets,dose pack 5 mg PO PER PKG DIR Patient Comments: pt takes 5mg bid Referrals / Follow Up: Price Herndon Chi, MD [Primary Care Provider, Geriatrics] - Within 2 Weeks Disposition Disposition (needs filled in before D/C Order can be placed): Home, Self Care Charges/Coding Visit Charges Inpatient E&M: 08860 Disch Hosp >30min
--- NOTE | 2025-08-22 13:57 | CASEMGMT ---
Social Work Therapy did not recommend therapy after DC. JEREMIAS Martines
== END 2025-08-22 14:45 | disposition home or self-care (01) | DRG 291 ==
LOC: ED 16:06 → PCU 16:09
PROVIDERS: Admitting Provider Family Medicine; Emergency Provider Emergency Medicine; PCP Family Medicine Geriatric Medicine; Visit Provider Internal Medicine
DX: I13.0 Hypertensive heart and chronic kidney disease with heart failure and stage 1 through stage 4 chronic kidney disease, or unspecified chronic kidney disease (principal); I50.33 Acute on chronic diastolic (congestive) heart failure; Z68.41 Body mass index [BMI] 40.0-44.9, adult; D53.9 Nutritional anemia, unspecified; Z79.01 Long term (current) use of anticoagulants; J45.20 Mild intermittent asthma, uncomplicated; E66.01 Morbid (severe) obesity due to excess calories; I25.10 Atherosclerotic heart disease of native coronary artery without angina pectoris; N18.2 Chronic kidney disease, stage 2 (mild); E78.5 Hyperlipidemia, unspecified; Z82.49 Family history of ischemic heart disease and other diseases of the circulatory system; Z79.899 Other long term (current) drug therapy; Z86.718 Personal history of other venous thrombosis and embolism; E66.813 Obesity, class 3
CPT/HCPCS: 36415; 71046; 80048; 80053; 80061; 83735; 83880; 84100; 84443; 84484; 85025; 93005; 93306; 94640; 94668; 97110; 97162; 97165; 97802; 99285; Q9957; A4216; C8929; J1938

== ENCOUNTER → 2025-08-27 | Outpatient (CLI) | payer MEDICARE, BC, SELFPAY ==
[2025-08-27 16:11] LABS: Hematocrit 37.6 % (40-54); Hemoglobin 12.4 g/dL (13.0-16.5); Immature Granulocytes Count 0.010 X10^3/uL (0.0-0.0); Mean Corp Hgb Conc 33.0 g/dL (32-36); Mean Corpuscular Volume 98.7 fL (80-94); Mean Platelet Vol. 9.5 fl (6.2-12.0); NRBC Flagged by Analyzer 0 % (0-5); Platelet Count 223 K/mm3 (150-450); RBC Distribution Width CV 13.6 % (11.6-14.6); RBC Distribution Width SD 49.7 fl (35.1-43.9); Red Blood Count 3.81 M/mm3 (4.6-6.2); White Blood Count 5.6 K/mm3 (4.4-11.0)
[2025-08-27 16:52] LABS: AST(SGOT) 26 U/L (<=37); Alanine Aminotransfer ALT/SGPT 20 U/L (<=46); Albumin, Serum 4.0 g/dL (3.4-4.8); Alkaline Phosphatase 94 U/L (40-129); Anion Gap 10 (5-15); BUN 19 mg/dL (4-19); BUN/Creat Ratio 20.6 RATIO (10-20); Calcium,Total 9.4 mg/dL (7.6-11.0); Carbon Dioxide 27.8 mmol/L (21.0-32.0); Chloride 101 mmol/L (98-108); Globulin 2.5 g/dL (2.2-4.2); Glucose 101 mg/dL (70-99); Potassium 4.4 mmol/L (3.3-5.1); Pro- Brain NATRIURETIC PEPTIDE 409 pg/mL (<=1800)
[2025-08-27 23:50] LABS: Xtra Tube Kwok EXTRA TUBE
== END | disposition home or self-care (01) ==
LOC: POLAB3 15:50
PROVIDERS: PCP Family Medicine Geriatric Medicine; Visit Provider Family Medicine Geriatric Medicine
DX: E87.6 Hypokalemia (principal); I50.33 Acute on chronic diastolic (congestive) heart failure
CPT/HCPCS: 36415; 80053; 83880; 85025

== ENCOUNTER → 2025-09-09 | Outpatient (CLI) | payer MEDICARE, BC, SELFPAY ==
--- NOTE | 2025-09-09 10:51 | RAD_ITS ---
PROCEDURE: L/S SPINE MIN 4 VIEWS 09/09/2025 REASON FOR EXAM: LOW BACK PAIN TECHNIQUE: Procedure Code: [id number] Modality: DX Procedure: L/S SPINE MIN 4 VIEWS COMPARISON: Prior study dated June 12, 2024. FINDINGS: Curvature: Minimal dextroconvex scoliosis. Other findings: Multilevel disc space narrowing and spondylosis. This is worse at the L4-L5 and L5-S1 levels. Mild loss of height of the superior endplate of the L5 vertebrae. Other: RAD/L/S Spine Min 4 Views IMPRESSION: Multilevel disc space narrowing and spondylosis. Facet joint osteoarthritis. Minimal dextroconvex scoliosis. Reading Location: [id number]
== END | disposition home or self-care (01) ==
LOC: RAD 10:50
PROVIDERS: PCP Family Medicine Geriatric Medicine; Referring Provider Family Medicine Geriatric Medicine; Visit Provider Family Medicine Geriatric Medicine
DX: M54.50 Low back pain, unspecified (principal)
CPT/HCPCS: 72110